=== PATIENT | male | born 1970 | race Caucasian/White ===

== ENCOUNTER 2017-03-01 00:53 | Inpatient (IN) | payer MEDICAID ==
[~2017-03-01] VITALS: Ht 195.6 cm; Wt 148.8 kg
[2017-03-01 00:53] VITALS: BP_SYST 120
[2017-03-01] MEDS ORDERED: MORPHINE 4 MG/ML INJ. SYRINGE IVP ONE (01:15)
[2017-03-01 01:47] LABS: HEMATOCRIT 41.2 % (36-54); HEMOGLOBIN 13.3 g/dL (14.0-18.0); LYMPHOCYTES % (AUTO) 36.7 % (20.5-51.5); MEAN CORPUSCULAR HEMOGLOBIN 28 pg (27-31); MEAN CORPUSCULAR HGB CONC 32 % (32-36); MEAN CORPUSCULAR VOLUME 85 fL (79.0-98.0); NEUTROPHILS % (AUTO) 44.2 % (40.0-70.0); PLATELET COUNT (AUTO) 295 K/uL (130-430); RED BLOOD CELL COUNT(AUTO) 4.82 MIL/uL (4.2-6.2); RED CELL DISTRIBUTION WIDTH 16.8 % (9.0-15.0); WHITE BLOOD COUNT (AUTO) 7.7 K/uL (4.8-10.8)
[2017-03-01 01:48] LABS: BASOPHILS # (AUTO) 0.4 K/uL (0.0-0.2); BASOPHILS % (AUTO) 4.6 % (0.0-2.0); EOSINOPHILS # (AUTO) 0.3 K/uL (0.0-0.4); EOSINOPHILS % (AUTO) 3.8 % (0.0-4.0); LYMPHOCYTES # (AUTO) 2.8 K/uL (1.0-5.5); MONOCYTES # (AUTO) 0.8 K/uL (0.0-1.0); MONOCYTES % (AUTO) 41.7 % (1.7-9.3); NEUTROPHILS # (AUTO) 3.4 K/uL (1.8-7.7)
[2017-03-01 01:51] LABS: CALCIUM 8.8 mg/dL (8.4-11.0); CREATININE 0.99 mg/dL (0.55-1.30); POTASSIUM 3.5 mmol/L (3.5-5.1)
[2017-03-01 01:57] LABS: ALBUMIN 2.9 g/dL (3.4-4.8); TOTAL BILIRUBIN 0.4 mg/dL (0.0-1.0)
[2017-03-01] MEDS ORDERED: RIVA20TA PO (02:27)
[2017-03-01] MEDS ORDERED: TOPXL100 PO (02:27)
[2017-03-01] MEDS ORDERED: ISO10 PO (02:27)
[2017-03-01] MEDS ORDERED: FURO-149 PO (02:27)
[2017-03-01] MEDS ORDERED: HYDR-4037 PO (02:27)
[2017-03-01] MEDS ORDERED: ASPI-1063 PO (02:27)
[2017-03-01] MEDS ORDERED: LISI10TA5 PO (02:27)
[2017-03-01] MEDS ORDERED: MORPHINE 2 MG/ML INJ. SYRINGE IVP PRN (03:00)
[2017-03-01 03:29] VITALS: BP_SYST 107
[2017-03-01] MEDS: NITROGLYCERIN 0.4 MG TAB.SUBL SL PRN ×2 (04:27→04:33)
[2017-03-01] MEDS ORDERED: hydrALAZINE HCL 10 MG TABLET PO SCH (06:00)
[2017-03-01 08:25] VITALS: BP_SYST 137
[2017-03-01] MEDS ORDERED: chlordiazePOXIDE HCL 25 MG CAPSULE PO PRN (08:30)
[2017-03-01] MEDS ORDERED: ISOSORBIDE DINITRATE 10 MG TABLET (ISORDIL) PO SCH (09:00)
[2017-03-01] MEDS ORDERED: LISINOPRIL 10 MG TABLET (PRINIVIL) PO SCH (09:00)
[2017-03-01] MEDS ORDERED: METOPROLOL SUCCINATE 50 MG TAB.SR.24H (TOPROL XL) PO SCH ×2 (09:00)
[2017-03-01] MEDS ORDERED: FOLIC ACID 1 MG TABLET PO SCH (09:00)
[2017-03-01] MEDS ORDERED: ASPIRIN 81 MG TABLET(ECOTRIN) PO SCH (09:00)
[2017-03-01] MEDS ORDERED: THIAMINE HCL 100 MG TABLET PO SCH (09:00)
[2017-03-01] MEDS ORDERED: RIVAROXABAN 10 MG TABLET PO SCH (09:00)
[2017-03-01 10:07] LABS: CHOLESTEROL 104 mg/dL (<200); HDL CHOLESTEROL 34 mg/dL (>45); LDL CHOLESTEROL 75 mg/dL (<100); TRIGLYCERIDES 74 mg/dL (30-150)
== END 2017-03-01 09:50 | disposition left against medical advice (07) | DRG 203 ==
LOC: SED 00:53 → STU 03:16
PROVIDERS: ADMIT Internal Medicine; ATTEND Internal Medicine
DX: R07.89 Other chest pain (principal); I42.0 Dilated cardiomyopathy; I50.9 Heart failure, unspecified; E44.0 Moderate protein-calorie malnutrition; E66.01 Morbid (severe) obesity due to excess calories; F15.10 Other stimulant abuse, uncomplicated; I48.91 Unspecified atrial fibrillation; F10.10 Alcohol abuse, uncomplicated; G47.30 Sleep apnea, unspecified; Z53.21 Procedure and treatment not carried out due to patient leaving prior to being seen by health care provider; J44.9 Chronic obstructive pulmonary disease, unspecified; F19.10 Other psychoactive substance abuse, uncomplicated; F17.210 Nicotine dependence, cigarettes, uncomplicated; Z68.38 Body mass index [BMI] 38.0-38.9, adult; Z79.82 Long term (current) use of aspirin; Z79.899 Other long term (current) drug therapy
CPT/HCPCS: 36415; 71010; 80053; 80061; 83880; 84484; 85025; 87081; 93005; 93306; 96374; 99285; J2270

== ENCOUNTER 2017-03-02 05:10 | Inpatient (IN) | payer MEDICAID ==
[~2017-03-02] VITALS: Ht 190.5 cm; Wt 149.7 kg
[~2017-03-02 05:10] MED LIST: ASPI-1063 PO; FURO-149 PO; HYDR-4037 PO; ISO10 PO; LISI10TA5 PO; RIVA20TA PO; TOPXL100 PO
[2017-03-02 05:13] VITALS: BP_SYST 128
[2017-03-02] MEDS ORDERED: ASPIRIN 325 MG TABLET PO ONE (05:15)
[2017-03-02] MEDS ORDERED: KETOROLAC TROMETHAMINE 60 MG/2 ML VIAL IM ONE (05:15)
[2017-03-02 05:54] LABS: BASOPHILS # (AUTO) 0.1 K/uL (0.0-0.2); EOSINOPHILS # (AUTO) 0.3 K/uL (0.0-0.4); HEMATOCRIT 46.9 % (36-54); LYMPHOCYTES # (AUTO) 2.7 K/uL (1.0-5.5); MEAN CORPUSCULAR HEMOGLOBIN 27 pg (27-31); MEAN CORPUSCULAR HGB CONC 31 % (32-36); MONOCYTES # (AUTO) 0.5 K/uL (0.0-1.0)
[2017-03-02 05:55] LABS: CALCIUM 10.1 mg/dL (8.4-11.0); POTASSIUM 3.5 mmol/L (3.5-5.1)
[2017-03-02 05:58] LABS: EOSINOPHILS % (AUTO) 3.9 % (0.0-4.0); HEMOGLOBIN 14.5 g/dL (14.0-18.0); LYMPHOCYTES % (AUTO) 40.7 % (20.5-51.5); MEAN CORPUSCULAR VOLUME 86 fL (79.0-98.0); MONOCYTES % (AUTO) 7.9 % (1.7-9.3); NEUTROPHILS # (AUTO) 3.1 K/uL (1.8-7.7); NEUTROPHILS % (AUTO) 46.5 % (40.0-70.0); PLATELET COUNT (AUTO) 356 K/uL (130-430); RED BLOOD CELL COUNT(AUTO) 5.48 MIL/uL (4.2-6.2); RED CELL DISTRIBUTION WIDTH 16.6 % (9.0-15.0); WHITE BLOOD COUNT (AUTO) 6.7 K/uL (4.8-10.8)
[2017-03-02 06:00] LABS: ALBUMIN 3.2 g/dL (3.4-4.8); TOTAL BILIRUBIN 0.7 mg/dL (0.0-1.0)
[2017-03-02] MEDS ORDERED: IPRATROPIUM/ALBUTEROL SULFATE 3 ML AMPUL.NEB INH ONE (06:00)
[2017-03-02] MEDS ORDERED: FUROSEMIDE 40 MG/4 ML VIAL IVP ONE (06:00)
[2017-03-02] MEDS ORDERED: ALBUTEROL SULFATE 0.083% 2.5 MG/3 ML VIAL.NEB INH PRN (06:30)
[2017-03-02 07:09] VITALS: BP_SYST 120
[2017-03-02 09:16] LABS: BILIRUBIN,URINE NEGATIVE (NEGATIVE); CLARITY/URINE CLEAR (CLEAR); COLOR,URINE YELLOW (YELLOW); GLUCOSE,URINE NEGATIVE (NEGATIVE); KETONES,URINE NEGATIVE (NEGATIVE); LEUKOCYTE ESTERASE ,URINE NEGATIVE (NEGATIVE); NITRITE, URINE NEGATIVE (NEGATIVE); PH,URINE 5.5 (5.0-8.0); PROTEIN URINE 2+ (NEGATIVE); UROBILINOGEN,URINE 0.2 (0.2-1.0)
[2017-03-02 09:21] LABS: BLOOD, URINE TRACE (NEGATIVE)
[2017-03-02 09:33] LABS: BARBITURATE, URINE NEGATIVE (NEG <=200); BENZODIAZEPINE, URINE NEGATIVE (NEG <=150); CANNABINOID, URINE NEGATIVE (NEG <=50); COCAINE, URINE NEGATIVE (NEG <=150); METHAMPHETAMINES SCREEN,URINE POSITIVE (NEG <=500); OPIATE, URINE POSITIVE (NEG <=100); PHENCYCLIDINE SCREEN,URINE NEGATIVE (NEG <=25); UR TRICYCLIC ANTIDEPRESSANTS NEGATIVE (NEG <=300); URINE AMPHETAMINE POSITIVE (NEG <=500); URINE METHADONE NEGATIVE (NEG <=200); URINE OXYCODONE SCREEN NEGATIVE (NEG <=100); URINE PROPOXYPHENE SCREEN NEGATIVE (NEG <=300)
[2017-03-02] MEDS ORDERED: ISOSORBIDE DINITRATE 10 MG TABLET (ISORDIL) PO ONE (09:45)
[2017-03-02 09:54] LABS: WBC,URINE 0-3 /HPF (0-3)
[2017-03-02 09:55] LABS: BACTERIA,URINE RARE /HPF (None Seen); HYALINE CASTS, URINE 0-10 /LPF (None Seen); MUCUS,URINE 1+ /LPF (None Seen)
[2017-03-02] MEDS ORDERED: LISINOPRIL 10 MG TABLET (PRINIVIL) PO ONE (10:00)
[2017-03-02] MEDS ORDERED: RIVAROXABAN 10 MG TABLET PO ONE (10:00)
[2017-03-02] MEDS ORDERED: METOPROLOL SUCCINATE 50 MG TAB.SR.24H (TOPROL XL) PO ONE (10:00)
[2017-03-02] MEDS ORDERED: ASPIRIN 81 MG TABLET(ECOTRIN) PO ONE (10:00)
[2017-03-02] MEDS ORDERED: FUROSEMIDE 40 MG TABLET PO ONE (10:00)
[2017-03-02] MEDS: MORPHINE 4 MG/ML INJ. SYRINGE IVP PRN ×3 (10:16→21:11)
[2017-03-02] MEDS: hydrALAZINE HCL 10 MG TABLET PO SCH ×2 (10:17→18:08)
[2017-03-02 12:37] VITALS: BP_SYST 106; BP_SYST 131
[2017-03-02 16:29] VITALS: BP_SYST 154
[2017-03-02 17:29] VITALS: BP_SYST 154
[2017-03-02] MEDS: ALBUTEROL SULFATE 0.083% 2.5 MG/3 ML VIAL.NEB INH SCH (20:30)
[2017-03-02] MEDS: ISOSORBIDE DINITRATE 10 MG TABLET (ISORDIL) PO SCH (21:11)
[2017-03-03] MEDS: MORPHINE 4 MG/ML INJ. SYRINGE IVP PRN ×4 (00:47→16:08)
[2017-03-03] MEDS: ALBUTEROL SULFATE 0.083% 2.5 MG/3 ML VIAL.NEB INH SCH ×4 (01:30→19:48)
[2017-03-03 03:09] VITALS: BP_SYST 119
[2017-03-03] MEDS: hydrALAZINE HCL 10 MG TABLET PO SCH ×3 (04:19→18:16)
[2017-03-03 06:02] VITALS: BP_SYST 125
[2017-03-03] MEDS: RIVAROXABAN 10 MG TABLET PO SCH (08:49)
[2017-03-03] MEDS: FUROSEMIDE 40 MG TABLET PO SCH (08:51)
[2017-03-03] MEDS: ASPIRIN 81 MG TABLET(ECOTRIN) PO SCH (08:51)
[2017-03-03] MEDS: METOPROLOL SUCCINATE 50 MG TAB.SR.24H (TOPROL XL) PO SCH (08:51)
[2017-03-03] MEDS: ISOSORBIDE DINITRATE 10 MG TABLET (ISORDIL) PO SCH ×2 (08:52→21:41)
[2017-03-03] MEDS ORDERED: LISINOPRIL 10 MG TABLET (PRINIVIL) PO SCH (09:00)
[2017-03-03 11:34] VITALS: BP_SYST 127
[2017-03-03 16:18] VITALS: BP_SYST 142
[2017-03-03 20:16] VITALS: BP_SYST 135
[2017-03-04] MEDS: MORPHINE 4 MG/ML INJ. SYRINGE IVP PRN ×4 (00:06→13:50)
[2017-03-04 00:14] VITALS: BP_SYST 146
[2017-03-04] MEDS: ALBUTEROL SULFATE 0.083% 2.5 MG/3 ML VIAL.NEB INH SCH ×3 (01:00→14:40)
[2017-03-04] MEDS: hydrALAZINE HCL 10 MG TABLET PO SCH ×2 (03:23→09:35)
[2017-03-04 04:28] VITALS: BP_SYST 128
[2017-03-04 08:17] VITALS: BP_SYST 147
[2017-03-04] MEDS ORDERED: LISINOPRIL 20 MG TABLET PO SCH (09:00)
[2017-03-04] MEDS: ASPIRIN 81 MG TABLET(ECOTRIN) PO SCH (09:27)
[2017-03-04] MEDS: ISOSORBIDE DINITRATE 10 MG TABLET (ISORDIL) PO SCH (09:28)
[2017-03-04] MEDS: FUROSEMIDE 40 MG TABLET PO SCH (09:29)
[2017-03-04] MEDS: METOPROLOL SUCCINATE 50 MG TAB.SR.24H (TOPROL XL) PO SCH (09:30)
[2017-03-04] MEDS: RIVAROXABAN 10 MG TABLET PO SCH (09:31)
[2017-03-04 11:34] VITALS: BP_SYST 131
[2017-03-04 12:43] VITALS: BP_SYST 131
[2017-03-04] MEDS ORDERED: METO200T37 PO (15:42)
[2017-03-04] MEDS ORDERED: LISI-600 PO (15:42)
[2017-03-04] MEDS ORDERED: HYDR-4037 PO (15:44)
[2017-03-04] MEDS ORDERED: IBUP-1480 PO (15:45)
[2017-03-04] MEDS ORDERED: ALBMDI INH (15:47)
[2017-03-04 16:49] VITALS: BP_SYST 135
[2017-03-05] MEDS ORDERED: METOPROLOL SUCCINATE 50 MG TAB.SR.24H (TOPROL XL) PO SCH (09:00)
== END 2017-03-04 16:30 | disposition home or self-care (01) | DRG 194 ==
LOC: SED 05:10 → STU 06:23
PROVIDERS: ADMIT Family Medicine; ATTEND Family Medicine
DX: I11.0 Hypertensive heart disease with heart failure (principal); I42.0 Dilated cardiomyopathy; Z68.41 Body mass index [BMI] 40.0-44.9, adult; I48.0 Paroxysmal atrial fibrillation; I50.23 Acute on chronic systolic (congestive) heart failure; E66.01 Morbid (severe) obesity due to excess calories; Z91.19 Patient's noncompliance with other medical treatment and regimen; F15.10 Other stimulant abuse, uncomplicated; Z79.82 Long term (current) use of aspirin; Z79.899 Other long term (current) drug therapy
CPT/HCPCS: 36415; 36600; 71010; 80053; 80307; 81000-TC; 82803-TC; 83880; 84484; 85025; 87081; 93005; 94640; 94760; 96372; 96374; 99285; J1885; J1940; J2270

== ENCOUNTER 2018-12-07 04:58 | Emergency (ER) | payer MEDICAID ==
[~2018-12-07] VITALS: Ht 182.9 cm; Wt 99.8 kg
[~2018-12-07 04:58] MED LIST changes: +ALBMDI INH; -ASPI-1063 PO; +ASPI-1155 PO; -HYDR-4037 PO; +HYDR-4039 PO; +LISI-600 PO; -LISI10TA5 PO; +METO5TAB8 PO; +POTA20TA83 PO; +SPIR50TA PO
[2018-12-07 05:00] VITALS: BP_SYST 130
[2018-12-07] MEDS ORDERED: NITROGLYCERIN 0.4 MG TAB.SUBL SL ONE (05:15)
[2018-12-07] MEDS ORDERED: ASPIRIN 81 MG TAB.CHEW PO ONE (05:15)
[2018-12-07] MEDS ORDERED: MORPHINE 4 MG/ML INJ. SYRINGE IVP ONE (05:15)
[2018-12-07] MEDS ORDERED: LevALBUTEROL HCL 1.25 MG/0.5 ML *CONC.* VIAL.NEB (XOPENEX CONC.) INH ONE ×2 (05:15→06:00)
[2018-12-07] MEDS ORDERED: LORazepam 1 MG TABLET PO ONE (05:15)
[2018-12-07] MEDS ORDERED: IPRATROPIUM BROM 0.5 MG/2.5 ML VIAL.NEB (ATROVENT) IH ONE (05:15)
[2018-12-07 05:35] LABS: BASOPHILS # (AUTO) 0.1 K/uL (0.0-0.2); EOSINOPHILS # (AUTO) 0.1 K/uL (0.0-0.4); EOSINOPHILS % (AUTO) 1.9 % (0.0-4.0); HEMATOCRIT 39.3 % (36-54); HEMOGLOBIN 12.6 g/dL (14.0-18.0); LYMPHOCYTES # (AUTO) 1.5 K/uL (1.0-5.5); LYMPHOCYTES % (AUTO) 27.2 % (20.5-51.5); MEAN CORPUSCULAR HEMOGLOBIN 26 pg (27-31); MEAN CORPUSCULAR HGB CONC 32 % (32-36); MEAN CORPUSCULAR VOLUME 82 fL (79.0-98.0); MONOCYTES # (AUTO) 0.7 K/uL (0.0-1.0); MONOCYTES % (AUTO) 13.8 % (1.7-9.3); NEUTROPHILS % (AUTO) 55.1 % (40.0-70.0); PLATELET COUNT (AUTO) 230 K/uL (130-430); RED BLOOD CELL COUNT(AUTO) 4.83 MIL/uL (4.2-6.2); RED CELL DISTRIBUTION WIDTH 23.8 % (9.0-15.0); WHITE BLOOD COUNT (AUTO) 5.4 K/uL (4.8-10.8)
[2018-12-07 05:43] LABS: CALCIUM 8.6 mg/dL (8.4-11.0); CREATININE 1.1 mg/dL (0.55-1.30); POTASSIUM 3.4 mmol/L (3.5-5.1)
[2018-12-07 05:47] LABS: ALBUMIN 2.9 g/dL (3.4-4.8); INR 1.8 (0.80-1.20); PROTHROMBIN TIME 18.1 SECS (9.5-12.5); TOTAL BILIRUBIN 2.8 mg/dL (0.0-1.0)
[2018-12-07] MEDS ORDERED: FUROSEMIDE 40 MG/4 ML VIAL IVP ONE (07:00)
[2018-12-07] MEDS ORDERED: PHENYLEPHRINE HCL 1% NASAL 15 ML NASPR NS ONE (11:15)
[2018-12-07 11:58] VITALS: BP_SYST 124
== END 2018-12-07 11:58 | disposition home or self-care (01) ==
LOC: SED 04:58
DX: I50.9 Heart failure, unspecified (principal); R07.89 Other chest pain; R06.02 Shortness of breath; I25.10 Atherosclerotic heart disease of native coronary artery without angina pectoris; J44.9 Chronic obstructive pulmonary disease, unspecified; Z79.82 Long term (current) use of aspirin; Z79.899 Other long term (current) drug therapy
CPT/HCPCS: 36415; 71045; 80053; 83880; 84484; 85025; 85379; 85610; 85730; 93005; 94640; 96374; 96375; 99284; J1940; J2270

== ENCOUNTER 2018-12-13 20:17 | Inpatient (IN) | payer MEDICAID ==
[~2018-12-13] VITALS: Ht 190.5 cm; Wt 111.6 kg
[2018-12-13 20:20] VITALS: BP_SYST 126
--- NOTE | 2018-12-13 20:50 | NUR ---
Placed in room 6 . Placed on hospital monitor, blood pressure machine and pulse oximeter. To gown for exam. Side rails up.
--- NOTE | 2018-12-13 20:51 | NUR ---
ER Dr. Amin at bedside examining patient.
--- NOTE | 2018-12-13 20:52 | NUR ---
Medication was given, pt tolerated well. No adverse reaction, will continue to monitor.
--- NOTE | 2018-12-13 20:53 | NUR ---
Xray at bedside, pt tolerated well
[2018-12-13] MEDS ORDERED: ASPIRIN 81 MG TAB.CHEW PO ONE (21:00)
[2018-12-13 21:17] LABS: BASOPHILS % (AUTO) 0.2 % (0.0-2.0); EOSINOPHILS # (AUTO) 0.3 K/uL (0.0-0.4); EOSINOPHILS % (AUTO) 5.7 % (0.0-4.0); HEMATOCRIT 40.5 % (36-54); HEMOGLOBIN 12.6 g/dL (14.0-18.0); LYMPHOCYTES # (AUTO) 1.7 K/uL (1.0-5.5); LYMPHOCYTES % (AUTO) 32.8 % (20.5-51.5); MEAN CORPUSCULAR HEMOGLOBIN 26 pg (27-31); MEAN CORPUSCULAR HGB CONC 31 % (32-36); MEAN CORPUSCULAR VOLUME 82 fL (79.0-98.0); MONOCYTES # (AUTO) 0.5 K/uL (0.0-1.0); MONOCYTES % (AUTO) 10.7 % (1.7-9.3); NEUTROPHILS # (AUTO) 2.6 K/uL (1.8-7.7); NEUTROPHILS % (AUTO) 50.6 % (40.0-70.0); PLATELET COUNT (AUTO) 333 K/uL (130-430); RED BLOOD CELL COUNT(AUTO) 4.95 MIL/uL (4.2-6.2); RED CELL DISTRIBUTION WIDTH 24.2 % (9.0-15.0); WHITE BLOOD COUNT (AUTO) 5.1 K/uL (4.8-10.8)
--- NOTE | 2018-12-13 21:18 | NUR ---
Offered supplemental O2 via nasal cannula d/t oxygen saturation at 85% room air. Patient refuses.
[2018-12-13 21:33] LABS: CALCIUM 8.9 mg/dL (8.4-11.0); CREATININE 1.69 mg/dL (0.55-1.30)
[2018-12-13 21:39] LABS: ALBUMIN 2.7 g/dL (3.4-4.8); TOTAL BILIRUBIN 2.7 mg/dL (0.0-1.0)
[2018-12-13] MEDS ORDERED: KETOROLAC TROMETHAMINE 30 MG VIAL IVP ONE (21:45)
[2018-12-13] MEDS ORDERED: METOCLOPRAMIDE HCL 10 MG/2 ML VIAL IVP ONE (21:45)
[2018-12-13 21:51] LABS: POTASSIUM 2.8 mmol/L (3.5-5.1)
--- NOTE | 2018-12-13 22:02 | NUR ---
Patient refused medications. Dr. Amin was made aware.
[2018-12-13] MEDS ORDERED: POTASSIUM CHLORIDE 20 MEQ TAB.PRT.SR PO ONE (22:45)
[2018-12-13] MEDS ORDERED: ALBUTEROL SULFATE 0.083% 2.5 MG/3 ML VIAL.NEB INH ONE (23:00)
[2018-12-13] MEDS ORDERED: IPRATROPIUM BROM 0.5 MG/2.5 ML VIAL.NEB (ATROVENT) INH ONE (23:00)
[2018-12-13] MEDS ORDERED: PREDNISONE 20 MG TABLET PO ONE (23:00)
--- NOTE | 2018-12-13 23:18 | NUR ---
Pt resting comfortably in bed. No acute distress, will continue to monitor.
[2018-12-13] MEDS ORDERED: MORPHINE 4 MG/ML INJ. SYRINGE IVP ONE (23:30)
--- NOTE | 2018-12-14 01:32 | NUR ---
patient sleeping comfortably in bed. No acute distress, will continue to monitor.
--- NOTE | 2018-12-14 02:35 | NUR ---
Pt resting comfortably in bed. No acute distress, will continue to monitor.
[2018-12-14] MEDS ORDERED: ACETAMINOPHEN 325 MG TABLET PO PRN (04:15)
[2018-12-14] MEDS ORDERED: MORPHINE 2 MG/ML INJ. SYRINGE IVP PRN (04:15)
--- NOTE | 2018-12-14 04:28 | NUR ---
Patient will be admitted to care of Dr. Pelaez. Admitted to Telemetry unit. Belongings list completed. Summary report printed. Report will be given at bedside. Awaiting bed assignment.
--- NOTE | 2018-12-14 05:21 | NUR ---
Patient will be admitted to care of Dr. Pelaez. Admitted to Telemetry unit. Will go to room 120 A. Belongings list completed. Summary report printed. Report will be given at bedside.
--- NOTE | 2018-12-14 05:22 | NUR ---
Transfer to Telemetry via ACLS protocol. Licensed nurse present. IV present no signs or symptoms of infiltration.
--- NOTE | 2018-12-14 05:32 | NUR ---
ADMISSION: The patient, PATRICE YOUNG, 48 y/o, M admitted by MADDI KEARNS MD,with the diagnosis of Chest Pain , to room 120 A
[2018-12-14 05:48] VITALS: BP_SYST 97
--- NOTE | 2018-12-14 06:00 | NUR ---
Patient refused wound documentation pictures. Will endorse to day shift nurse to attempt again.
--- NOTE | 2018-12-14 06:34 | NUR ---
Patient resting in bed with eyes closed. Breathing unlabored and even on 2L oxygen via NC. No signs of distress, no needs at this time. Fall and safety precautions in place. Bed in lowest position, brake on, alarm on, call light within reach. Will continue to monitor.
--- NOTE | 2018-12-14 06:47 | NUR ---
DAILY WEIGHT FOR CHF: [phone] #
--- NOTE | 2018-12-14 06:51 | NUR ---
CLOSING NOTE Patient resting in bed with eyes closed. Breathing unlabored and even on 2L oxygen via NC. No signs of distress, no needs at this time. Fall and safety precautions in place. Bed in lowest position, brake on, alarm on, call light within reach. Will endorse to day shift nurse.
--- NOTE | 2018-12-14 08:00 | NUR ---
pt in appears to be sleep awaken with verbal arousal pt denies pain at this time aox3 on room air vss. will continue to monitor.
[2018-12-14] MEDS ORDERED: POTASSIUM CHLORIDE 20 MEQ/PKT PACKET PO SCH (09:00)
[2018-12-14] MEDS ORDERED: ASPIRIN 81 MG TABLET(ECOTRIN) PO SCH (09:00)
[2018-12-14] MEDS ORDERED: METOLAZONE 5 MG TABLET PO SCH (09:45)
[2018-12-14 09:55] VITALS: BP_SYST 128
--- NOTE | 2018-12-14 10:00 | NUR ---
pt in bed sleep awakes with arousal no changes from previous assessment
[2018-12-14] MEDS ORDERED: ISOSORBIDE DINITRATE 10 MG TABLET (ISORDIL) PO ONE (10:30)
[2018-12-14] MEDS ORDERED: METOPROLOL SUCCINATE 50 MG TAB.SR.24H (TOPROL XL) PO ONE (10:30)
[2018-12-14] MEDS ORDERED: hydrALAZINE HCL 25 MG TABLET PO ONE (10:30)
[2018-12-14] MEDS ORDERED: LISINOPRIL 20 MG TABLET PO ONE (10:30)
[2018-12-14] MEDS ORDERED: FUROSEMIDE 40 MG TABLET PO ONE (10:30)
[2018-12-14] MEDS ORDERED: POTASSIUM CHLORIDE 20 MEQ TAB.PRT.SR PO ONE (11:00)
--- NOTE | 2018-12-14 12:00 | NUR ---
no changes from previous shift
[2018-12-14 12:45] VITALS: BP_SYST 114
--- NOTE | 2018-12-14 13:35 | NUR ---
informed of critical lab. dr lofton stated he will be in to assess pt
[2018-12-14] MEDS: IPRATROPIUM/ALBUTEROL SULFATE 3 ML AMPUL.NEB (DUONEB) INH SCH ×2 (13:37→20:12)
--- NOTE | 2018-12-14 13:48 | NUR ---
Pediatric Immunologist: PHARMACY SPECIALIST met with pt. bedside. Pt. was sleeping. He tried to awaken when PHARMACY SPECIALIST said hello. Pt. mumbled something and went back to sleep. PHARMACY SPECIALIST went back one hour later. Pt. was still sleeping. PHARMACY SPECIALIST will try to meet with him before 5pm today.
[2018-12-14] MEDS ORDERED: ENOXAPARIN SODIUM 100 MG/ML SYRINGE SUBCUT ONE (14:15)
[2018-12-14] MEDS ORDERED: ASPIRIN 81 MG TABLET(ECOTRIN) PO ONE (14:30)
[2018-12-14] MEDS ORDERED: ASPIRIN 81 MG TAB.CHEW ONE (14:54)
[2018-12-14] MEDS ORDERED: ASPIRIN 81 MG TABLET(ECOTRIN) ONE (14:55)
[2018-12-14 16:55] VITALS: BP_SYST 121
[2018-12-14] MEDS ORDERED: RIVAROXABAN 10 MG TABLET PO SCH (18:00)
--- NOTE | 2018-12-14 18:08 | NUR ---
CONSULTATION PAGED/CALLED Reason for Consultation: Elevated troponin Person Who was Notified: CHIP Consulting Physician: DR. WALLACE Women'S Studies Professor Specialty: DESKIDDING MACHINE OPERATOR Ordering Physician: URMILA
--- NOTE | 2018-12-14 18:19 | NUR ---
pt shows no s/s of acute distress monitoriung iongoing./
[2018-12-14 18:21] LABS: BILIRUBIN,URINE 1+ (NEGATIVE); BLOOD, URINE NEGATIVE (NEGATIVE); CLARITY/URINE CLEAR (CLEAR); COLOR,URINE AMBER (YELLOW); GLUCOSE,URINE NEGATIVE (NEGATIVE); KETONES,URINE NEGATIVE (NEGATIVE); LEUKOCYTE ESTERASE ,URINE NEGATIVE (NEGATIVE); NITRITE, URINE NEGATIVE (NEGATIVE); PROTEIN URINE 1+ (NEGATIVE)
[2018-12-14 18:37] LABS: UROBILINOGEN,URINE >=8 (0.2-1.0)
[2018-12-14 18:40] LABS: BACTERIA,URINE FEW /HPF (None Seen); RBC,URINE NONE SEEN /HPF (0-3); WBC,URINE 0-3 /HPF (0-3)
[2018-12-14 18:41] LABS: MUCUS,URINE None Seen /LPF (None Seen)
[2018-12-14 18:44] LABS: BARBITURATE, URINE NEGATIVE (NEG <=200); BENZODIAZEPINE, URINE POSITIVE (NEG <=150); CANNABINOID, URINE NEGATIVE (NEG <=50); COCAINE, URINE NEGATIVE (NEG <=150); METHAMPHETAMINES SCREEN,URINE POSITIVE (NEG <=500); URINE AMPHETAMINE POSITIVE (NEG <=500); URINE METHADONE NEGATIVE (NEG <=200)
[2018-12-14 18:45] LABS: OPIATE, URINE POSITIVE (NEG <=100); PHENCYCLIDINE SCREEN,URINE NEGATIVE (NEG <=25); UR TRICYCLIC ANTIDEPRESSANTS NEGATIVE (NEG <=300); URINE OXYCODONE SCREEN NEGATIVE (NEG <=100); URINE PROPOXYPHENE SCREEN NEGATIVE (NEG <=300)
--- NOTE | 2018-12-14 19:10 | NUR ---
OPENING NOTE Bedside report received from day shift nurse. Patient received sitting up in bed, watching TV, patient is complaining of 10/10 chest pain, PRN medication to be administered. Breathing even and unlabored. IV site patent, no signs of infiltration or infection noted. Call light with patient. Patient able to demonstrate proper use of call light. Bed alarm off per patient's refusal. Bed is locked and at lowest position. Will continue to monitor.
[2018-12-14] MEDS: MORPHINE 4 MG/ML INJ. SYRINGE IVP PRN ×2 (19:43→23:50)
[2018-12-14 20:00] VITALS: BP_SYST 101
[2018-12-14] MEDS ORDERED: ENOXAPARIN SODIUM 100 MG/ML SYRINGE SUBCUT SCH (21:00)
--- NOTE | 2018-12-14 21:00 | NUR ---
ROUNDS/TOILET/REMOVED TELE MONITOR Patient on the toilet, having BM. Patient removed his gown and tele box. Patient is completely naked and refuses to have tele box attached or wear a gown at this time. Patient instructed to pull cord for emergency, patient verbalized understanding. Will continue to monitor.
[2018-12-14] MEDS: FUROSEMIDE 40 MG TABLET PO SCH (21:21)
[2018-12-14] MEDS: hydrALAZINE HCL 25 MG TABLET PO SCH (21:22)
[2018-12-14] MEDS: METOPROLOL SUCCINATE 50 MG TAB.SR.24H (TOPROL XL) PO SCH (21:22)
[2018-12-14] MEDS: POTASSIUM CHLORIDE 20 MEQ TAB.PRT.SR PO SCH (21:22)
--- NOTE | 2018-12-14 21:37 | NUR ---
PAGING DR. MEDINA FOR CRITICAL TROPONIN Paging Dr. Medina per primary nurse, MIRIAM Whittington, request to report critical troponin results and orders. Spoke with Petey from exchange. Will wait for MD to call back.
[2018-12-14] MEDS ORDERED: APIXABAN 2.5 MG TABLET PO SCH (22:00)
--- NOTE | 2018-12-14 23:00 | NUR ---
ROUNDS Patient in bed sleeping at this time. BIPAP machine attached and operating. No signs of discomfort noted. Chest rise and fall even bilaterally. Call light with patient. Will continue to monitor.
[2018-12-15] VITALS (8 sets, daily range): BP systolic 55–119
--- NOTE | 2018-12-15 01:00 | NUR ---
ROUNDS Patient in bed sleeping. No signs of discomfort noted. Chest rise and fall even bilaterally, CPAP mask attached, operating. HOB raised. Call light with patient. Will continue to monitor.
[2018-12-15] MEDS: IPRATROPIUM/ALBUTEROL SULFATE 3 ML AMPUL.NEB (DUONEB) INH SCH ×4 (01:57→20:18)
--- NOTE | 2018-12-15 03:00 | NUR ---
ROUNDS Patient in bed sleeping comfortably. No s/s of acute distress noted. Breathing even and unlabored. CPAP attached and operating. Call light with patient. Will continue to monitor.
[2018-12-15] MEDS: MORPHINE 4 MG/ML INJ. SYRINGE IVP PRN (04:01)
--- NOTE | 2018-12-15 05:00 | NUR ---
ROUNDS/REMOVED MASK Patient in bed sleeping, BIPAP mask removed. Patient asked if he still wants to use it, he stated you can turn it off. RT informed. Call light with patient. Will continue to monitor.
--- NOTE | 2018-12-15 06:41 | NUR ---
CLOSING NOTES Patient in bed sleeping. No s/s of acute distress noted. Breathing even and unlabored. IV site patent, no signs of infiltration or infection noted. HOB raised. All needs met throughout shift. Fall and safety precautions maintained throughout shift. Will continue to monitor until patient care is endorsed to oncoming dayshift nurse.
[2018-12-15 07:09] LABS: BASOPHILS % (AUTO) 0.3 % (0.0-2.0); HEMATOCRIT 33.1 % (36-54); HEMOGLOBIN 10.7 g/dL (14.0-18.0); LYMPHOCYTES # (AUTO) 1.9 K/uL (1.0-5.5); LYMPHOCYTES % (AUTO) 14.9 % (20.5-51.5); MEAN CORPUSCULAR HEMOGLOBIN 30 pg (27-31); MEAN CORPUSCULAR HGB CONC 32 % (32-36); MEAN CORPUSCULAR VOLUME 94 fL (79.0-98.0); MONOCYTES # (AUTO) 0.4 K/uL (0.0-1.0); MONOCYTES % (AUTO) 3.4 % (1.7-9.3); NEUTROPHILS # (AUTO) 10.2 K/uL (1.8-7.7); NEUTROPHILS % (AUTO) 81.4 % (40.0-70.0); PLATELET COUNT (AUTO) 462 K/uL (130-430); RED BLOOD CELL COUNT(AUTO) 3.53 MIL/uL (4.2-6.2); RED CELL DISTRIBUTION WIDTH 14.6 % (9.0-15.0)
[2018-12-15 07:14] LABS: WHITE BLOOD COUNT (AUTO) 12.6 K/uL (4.8-10.8)
[2018-12-15 07:15] LABS: CALCIUM 9.5 mg/dL (8.4-11.0); POTASSIUM 4.8 mmol/L (3.5-5.1)
[2018-12-15 07:16] LABS: FREE T4 (FREE THYROXINE) 1.2 ng/dl (0.8-1.5)
[2018-12-15 07:37] LABS: THYROID STIMULATING HORMONE 0.36 uIu/mL (0.36-3.74)
--- NOTE | 2018-12-15 08:00 | NUR ---
OPENING NOTE: PATIENT LAYING IN BED. PATIENT AROUSABLE TO LIGHT STIMULI AND VERBAL RESPONSIVE. PATIENT ABLE TO OPEN EYES SPONTANEOUSLY. VERBALLY RESPONSIVE. PATIENT IS ON ROOM AIR AND SATURATING AT 97% O2. SKIN COLOR NORMAL TO PATIENT'S ETHNICITY. IV INTACT, NO REDNESS/SWELLING TO SITE. BED AT LOWEST POSITION, CALL LIGHT IN REACH. WILL CONTINUE TO MONITOR.
[2018-12-15] MEDS: ONDANSETRON HCL 4 MG/2 ML VIAL IVP PRN (08:40)
[2018-12-15] MEDS: ISOSORBIDE DINITRATE 10 MG TABLET (ISORDIL) PO SCH ×2 (09:00→09:34)
[2018-12-15] MEDS: APIXABAN 2.5 MG TABLET PO SCH ×3 (09:00→21:00)
[2018-12-15] MEDS: METOPROLOL SUCCINATE 50 MG TAB.SR.24H (TOPROL XL) PO SCH ×2 (09:00→21:00)
[2018-12-15] MEDS: FUROSEMIDE 40 MG TABLET PO SCH ×3 (09:00→21:00)
[2018-12-15] MEDS: POTASSIUM CHLORIDE 20 MEQ TAB.PRT.SR PO SCH ×3 (09:00→21:00)
[2018-12-15] MEDS: LISINOPRIL 20 MG TABLET PO SCH (09:00)
[2018-12-15] MEDS: hydrALAZINE HCL 25 MG TABLET PO SCH ×2 (09:00→21:00)
[2018-12-15] MEDS: SPIRONOLACTONE 50 MG TABLET (ALDACTONE) PO SCH (09:00)
[2018-12-15] MEDS: ASPIRIN 81 MG TAB.CHEW PO SCH ×2 (09:00→09:30)
--- NOTE | 2018-12-15 09:42 | NUR ---
PATIENT VOMITED MORNING MEDS: PATIENT VOMITED MORNING MEDS. UNABLE TO KEEP MEDICATIONS DOWN. PATIENT REFUSED ALL MEDICATIONS. WILL CONTINUE TO MONITOR. DR. WALLACE AT BEDSIDE. DR. WALLACE AWARE THAT PATIENT REFUSED HIS MORNING MEDICATIONS.
--- NOTE | 2018-12-15 12:00 | NUR ---
PATIENT'S FAMILY AT BEDSIDE: PATIENT'S FAMILY AT BEDSIDE, HIS EX , COUSIN AND TWO FAMILY MEMBERS. PATIENT'S FAMILY WAS ASKING ABOUT DISCHARGE PLANNING. CALLED CASE MANAGEMENT AND CLAYTON CAME AND SPOKE TO FAMILY AT BEDSIDE. ALSO DR. KEARNS IN UNIT. PATIENT'S FAMILY WAS MADE AWARE OF PLAN OF CARE/DISCHARGE.E EXPLAINED THAT PSYCH CONSULT WAS CALLED AND PSYCH MD WILL EVALUATE PATIENT. ALSO CLAYTON SPOKE TO FAMILY IN REGARDS TO DISCHARGE OPTIONS FOR PATIENT.
--- NOTE | 2018-12-15 12:06 | NUR ---
CONSULTATION PAGED/CALLED Reason for Consultation: DEPRESSION Person Who was Notified: DOMONIQUE Consulting Physician: DR. LANGSTON/DR. TOTH CREATIVE LEAD Restoration Ecologist Specialty: PSYCHIATRIST Ordering Physician: DR. KEARNS
--- NOTE | 2018-12-15 13:00 | NUR ---
RT NOTES FAMILY REQUESTED TO PUT PT ON BIPAP AT THIS TIME. RN RESSIE AWARE.
[2018-12-15] MEDS ORDERED: NACL 0.9% 1,000 ML IV ONE (16:15)
--- NOTE | 2018-12-15 16:35 | NUR ---
CALLED PATIENT'S FATHER AND UPDATED ON PATIENTS CURRENT STATUS. PATIENTS FATHER (LISTED NEXT OF KIN) IS AWARE THAT PATIENTS BLOOD PRESSURE HAS DECREASED AND PATIENT IS REFUSING TO BE TRANSFERRED TO ICU. PER PATIENT'S FATHER "WE DONT REALLY GET ALONG, I HAVENT TALKED OR SEEN HIM FOR MONTHS. CAN YOU CALL HIS AND SHE CAN MAKE DISCUSSIONS. THEYRE STILL ".
--- NOTE | 2018-12-15 18:32 | NUR ---
CLOSING NOTE: PATIENT RESTING IN BED. VISITORS AT BEDSIDE. PATIENT IS AWAKE AND ALERT, VERBALLY RESPONSIVE. PATIENT WAS RAISING HIS VOICE AT FAMILY MEMBER. PATIENT IS ON ROOM AIR AND SATURATING WITHIN NORMAL LIMITS. NO ACUTE SIGNS OF RESP DISTRESS, NO SOB. BREATHING EVEN AND UNLABORED. IV INTACT, NO REDNESS/SWELLING TO SITE. BED AT LOWEST POSITION, CALL LIGHT IN REACH, SIDE RAILX2, PATIENT CLOSE TO NURSING STATION. WILL ENDORSE PLAN OF CARE TO NOC RN.
--- NOTE | 2018-12-15 20:00 | NUR ---
FALL RISK , PATIENT SITS UP IN BED AT TIMES UNSTEADY WEAK NESS UNABLE TO AMBULATE , PROCEDURES EXPLAINED REFUSING CARE .
[2018-12-15] MEDS: MUPIROCIN 2% TOPICAL OINTMENT 22 GM TP SCH (21:00)
--- NOTE | 2018-12-15 22:38 | NUR ---
PLEASE HAVE DR IVIS MURPHY CALL FOR UPDATE [phone] , MICHAEL .
--- NOTE | 2018-12-15 22:55 | NUR ---
PATIENT REFUSE ELIQUIS 5 MG PO
--- NOTE | 2018-12-15 22:56 | NUR ---
PATIENT REFUSE K dur 40 MEQ PO
--- NOTE | 2018-12-15 22:59 | NUR ---
DR URMILA MURPHY HERE ON THE UNIT AND AWARE OF PATIENT REFUSING VITAL SIGNS & BEDSIDE CARE .
--- NOTE | 2018-12-16 00:36 | NUR ---
HOURLY ROUNDING PATIENT REFUSING TO KEEP GOWN , & SHEET PROCEDURES EXPLAINED FREQUENT MONITOR FALL MEASURES NOTED .
[2018-12-16] MEDS: IPRATROPIUM/ALBUTEROL SULFATE 3 ML AMPUL.NEB (DUONEB) INH SCH ×4 (01:00→19:00)
--- NOTE | 2018-12-16 03:26 | NUR ---
PATIENT IN REST ROOM REFUSING TO COME OUT , NAME CALLING YELLING OUT REFUSING CARE .
--- NOTE | 2018-12-16 03:27 | NUR ---
REFUSING TO COME OUT OF REST ROOM SAYS HE,S GOING TO STAY IN REST ROOM FOR ONE HOUR .
[2018-12-16] MEDS: ONDANSETRON HCL 4 MG/2 ML VIAL IVP PRN (03:49)
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
--- NOTE | 2018-12-16 03:54 | NUR ---
ZOFRAN 4 MG IVP GIVEN FOR NAUSEA .
[2018-12-16 06:09] LABS: CALCIUM 9.2 mg/dL (8.4-11.0); CREATININE 3.16 mg/dL (0.55-1.30)
[2018-12-16 06:23] LABS: POTASSIUM 6.6 mmol/L (3.5-5.1)
--- NOTE | 2018-12-16 06:30 | NUR ---
PHONED PAGED DR URMILA MURPHY , K 6.6
--- NOTE | 2018-12-16 07:10 | NUR ---
NEW ORDERS DR URMILA MURPHY D/T HYPERKALEMIA 6.6
[2018-12-16 07:11] LABS: BASOPHILS % (AUTO) 0.4 % (0.0-2.0); EOSINOPHILS # (AUTO) 0.1 K/uL (0.0-0.4); EOSINOPHILS % (AUTO) 1.5 % (0.0-4.0); HEMATOCRIT 43.1 % (36-54); HEMOGLOBIN 13.8 g/dL (14.0-18.0); LYMPHOCYTES # (AUTO) 1.5 K/uL (1.0-5.5); LYMPHOCYTES % (AUTO) 15.6 % (20.5-51.5); MEAN CORPUSCULAR HEMOGLOBIN 27 pg (27-31); MEAN CORPUSCULAR HGB CONC 32 % (32-36); MONOCYTES # (AUTO) 0.8 K/uL (0.0-1.0); MONOCYTES % (AUTO) 8.8 % (1.7-9.3); NEUTROPHILS # (AUTO) 7.1 K/uL (1.8-7.7); NEUTROPHILS % (AUTO) 73.7 % (40.0-70.0); PLATELET COUNT (AUTO) 429 K/uL (130-430); RED BLOOD CELL COUNT(AUTO) 5.12 MIL/uL (4.2-6.2); RED CELL DISTRIBUTION WIDTH 24.3 % (9.0-15.0); WHITE BLOOD COUNT (AUTO) 9.6 K/uL (4.8-10.8)
[2018-12-16] MEDS ORDERED: SODIUM POLYSTYRENE SULFONATE 15 GM/60 ML UDBTL PO ONE (07:15)
[2018-12-16 07:21] LABS: MEAN CORPUSCULAR VOLUME 84 fL (79.0-98.0)
--- NOTE | 2018-12-16 07:30 | NUR ---
Am rounds: Received patient asleep. On room air. No signs of respiratory distress noted.
[2018-12-16 08:35] VITALS: BP_SYST 97
--- NOTE | 2018-12-16 08:43 | NUR ---
Rounds: Patient agreed vital signs to be taken. But went back to sleep right away when told that am meds will be given.
[2018-12-16] MEDS: ASPIRIN 81 MG TAB.CHEW PO SCH (08:53)
[2018-12-16] MEDS: APIXABAN 2.5 MG TABLET PO SCH ×2 (08:53→20:55)
[2018-12-16] MEDS: ISOSORBIDE DINITRATE 10 MG TABLET (ISORDIL) PO SCH (09:00)
[2018-12-16] MEDS: LISINOPRIL 20 MG TABLET PO SCH (09:00)
[2018-12-16] MEDS: FUROSEMIDE 40 MG TABLET PO SCH ×2 (09:00→20:56)
[2018-12-16] MEDS: MUPIROCIN 2% TOPICAL OINTMENT 22 GM TP SCH ×2 (09:00→20:57)
[2018-12-16] MEDS: METOPROLOL SUCCINATE 50 MG TAB.SR.24H (TOPROL XL) PO SCH ×2 (09:00→20:56)
[2018-12-16] MEDS: SPIRONOLACTONE 50 MG TABLET (ALDACTONE) PO SCH (09:00)
[2018-12-16] MEDS: hydrALAZINE HCL 25 MG TABLET PO SCH ×2 (09:00→20:57)
--- NOTE | 2018-12-16 10:30 | NUR ---
IV out: Found IV out. Refused re insertion.
--- NOTE | 2018-12-16 12:30 | NUR ---
Bactroban: Was not available this am. Patient refused the medication now.
[2018-12-16 12:47] VITALS: BP_SYST 90
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
[2018-12-16 16:49] VITALS: BP_SYST 91
[2018-12-16] MEDS: NACL 0.9% 1,000 ML IV SCH (17:38)
--- NOTE | 2018-12-16 17:41 | NUR ---
CONSULT NEPHROLOGY BRADLEY CALHOUN [phone] S/W DEZ EXCHANGE
--- NOTE | 2018-12-16 17:53 | NUR ---
IV FLUIDS/ IV START: Started gauge 20 angiocath on the right AC, secured with tegaderm and Kerlix . Normal saline 100 cc/hr. Started patient on telemetry, patient is still confused, hard to understand when he talks. 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
--- NOTE | 2018-12-16 17:58 | NUR ---
Psyche consult: Seen by Dr. Ray (psyche). Per MD patient has stated to him that he feels suicidal but no intention of hurting himself and MD said patient does not need sitter at this point.
[2018-12-16 18:34] LABS: CREATININE 3.06 mg/dL (0.55-1.30); POTASSIUM 4.9 mmol/L (3.5-5.1)
--- NOTE | 2018-12-16 19:05 | NUR ---
OPENING NOTES Bedside report received from dayshift nurse. Patient received lying in bed, sleeping, no s/s of acute distress noted. Breathing even and unlabored. IV site not patent, new iv site to be inserted, resource nurse made aware, Willie Stewart RN. Call light with patient. Bed is locked and at lowest position. Will continue to monitor.
--- NOTE | 2018-12-16 19:45 | NUR ---
NEW IV SITE Admit nurse, Willie Mary, started new IV at right AC. IVF infusing well. Call light with patient. Will continue to monitor.
[2018-12-16] MEDS: QUEtiapine FUMARATE 25 MG TABLET PO SCH (20:55)
--- NOTE | 2018-12-16 21:00 | NUR ---
ROUNDS Patient in bed sleeping at this time. No signs of discomfort noted. Chest rise and fall even bilaterally. IVF infusing well. Call light with patient. Will continue to monitor.
[2018-12-16 21:27] VITALS: BP_SYST 116
--- NOTE | 2018-12-16 23:00 | NUR ---
LEADS OFF/REFUSING/AGITATED RN made aware that leads are off. Patient was woken up, patient is agitated, swinging his arms and refuses to have leads put back on. Will attempt again in a later time. Charge nurse made aware.
--- NOTE | 2018-12-17 | NUR ---
REFUSED VITALS RN made aware by MEDIA MANAGER that patient refused to have his vitals take at midnight.
--- NOTE | 2018-12-17 00:45 | NUR ---
DR. PITTS AT BEDSIDE Dr. Pitts at bedside. Informed RN to have Chem 7 labs for am. Will carry out.
--- NOTE | 2018-12-17 00:49 | NUR ---
LEADS ON Patient allowed RN to put leads on his chest at this time. Patient is confused and lethargic. No signs of discomfort. Chest rise and fall even bilaterally. IVF infusing well. Call light with patient. Will continue to monitor.
[2018-12-17] MEDS: IPRATROPIUM/ALBUTEROL SULFATE 3 ML AMPUL.NEB (DUONEB) INH SCH ×4 (01:00→19:00)
--- NOTE | 2018-12-17 01:49 | NUR ---
VOID/CONFUSED Patient woke up, got up from bed, bed alarm went off. RN arrived at room, patient was sitting at edge of bed. Patient mumbled pointing to bathroom. Patient encourage to pee in specimen cup or urinal. Patient is confused and uncooperative at this time. Patient was assisted to the bathroom by RN. Patient assisted back to bed. Call light with patient. Bed alarm on. IVF infusing. Will continue to monitor.
[2018-12-17] MEDS: NACL 0.9% 1,000 ML IV SCH ×2 (03:00→22:31)
--- NOTE | 2018-12-17 03:53 | NUR ---
NEW IV Previous IV pulled out. Catheter fully intact. No active bleeding noted. New IV at right AC, 22 gauge. IVF infusing well. Patient is confused, no s/s of acute distress. Breathing even and unlabored. Call light with patient. Bed alarm on. Will continue to monitor.
--- NOTE | 2018-12-17 04:10 | NUR ---
IV SITE PULLED OUT Patient pulled IV again. Catheter fully intact. No active bleeding noted. Patient refuses to have another IV inserted at this time. Patient is agitated, repeatedly says "do not touch me", and swings his arms. Charge nurse made aware. Will encourage again later.
[2018-12-17 05:26] LABS: BARBITURATE, URINE NEGATIVE (NEG <=200); BENZODIAZEPINE, URINE POSITIVE (NEG <=150); METHAMPHETAMINES SCREEN,URINE POSITIVE (NEG <=500); OPIATE, URINE POSITIVE (NEG <=100); URINE AMPHETAMINE NEGATIVE (NEG <=500)
[2018-12-17 05:27] LABS: CANNABINOID, URINE NEGATIVE (NEG <=50); COCAINE, URINE NEGATIVE (NEG <=150); PHENCYCLIDINE SCREEN,URINE NEGATIVE (NEG <=25); UR TRICYCLIC ANTIDEPRESSANTS NEGATIVE (NEG <=300); URINE METHADONE NEGATIVE (NEG <=200); URINE OXYCODONE SCREEN NEGATIVE (NEG <=100); URINE PROPOXYPHENE SCREEN NEGATIVE (NEG <=300)
[2018-12-17 06:00] LABS: BASOPHILS # (AUTO) 0.1 K/uL (0.0-0.2); EOSINOPHILS # (AUTO) 0.1 K/uL (0.0-0.4); EOSINOPHILS % (AUTO) 1.9 % (0.0-4.0); HEMATOCRIT 39.3 % (36-54); HEMOGLOBIN 12.7 g/dL (14.0-18.0); LYMPHOCYTES % (AUTO) 26.7 % (20.5-51.5); MEAN CORPUSCULAR HEMOGLOBIN 26 pg (27-31); MEAN CORPUSCULAR HGB CONC 32 % (32-36); MONOCYTES # (AUTO) 0.7 K/uL (0.0-1.0); NEUTROPHILS # (AUTO) 4.5 K/uL (1.8-7.7); NEUTROPHILS % (AUTO) 60.4 % (40.0-70.0); PLATELET COUNT (AUTO) 265 K/uL (130-430); RED BLOOD CELL COUNT(AUTO) 4.89 MIL/uL (4.2-6.2); RED CELL DISTRIBUTION WIDTH 23.8 % (9.0-15.0); WHITE BLOOD COUNT (AUTO) 7.4 K/uL (4.8-10.8)
[2018-12-17 06:07] LABS: ALBUMIN 2.4 g/dL (3.4-4.8); CALCIUM 8.5 mg/dL (8.4-11.0); CREATININE 2.94 mg/dL (0.55-1.30); TOTAL BILIRUBIN 4.2 mg/dL (0.0-1.0)
--- NOTE | 2018-12-17 06:17 | NUR ---
REFUSED XRAY optical lens manufacturing tech at bedside. Patient non compliant at this time, optical lens manufacturing tech encouraged patient multiple times but patient mumbled and did not follow instructions. emergency medical technician/driver stated she will try again later.
--- NOTE | 2018-12-17 06:22 | NUR ---
CLOSING NOTES Patient in bed asleep at this time. No s/s of acute distress noted. Breathing even and unlabored. NO IV site at this time. Attempted to start IV, patient refused and uncooperative. No active bleeding noted. All needs met throughout shift. Fall, safety and isolation precautions maintained throughout shift. Will continue to monitor until patient care is endorsed to oncoming dayshift nurse.
--- NOTE | 2018-12-17 07:50 | NUR ---
AM ASSESSMENT. PT UP IN THE BATHROOM, WITHOUT CLOTHES ON, GAIT UNSTEADY, ATTEMPTED TO ASSIST HIM, HE YELLED AT STAFF, PIERCING GAZE LOOK, THEN HE JUMPED BACK TO BED, CUSSING WORDS, PULLED UP HIS SHEET TO COVER HIMSELF.
[2018-12-17 08:09] LABS: MEAN CORPUSCULAR VOLUME 80 fL (79.0-98.0)
[2018-12-17] MEDS: ISOSORBIDE DINITRATE 10 MG TABLET (ISORDIL) PO SCH (09:00)
[2018-12-17] MEDS: QUEtiapine FUMARATE 25 MG TABLET PO SCH ×2 (09:00→21:00)
[2018-12-17] MEDS: METOPROLOL SUCCINATE 50 MG TAB.SR.24H (TOPROL XL) PO SCH ×2 (09:00→21:00)
[2018-12-17] MEDS: MUPIROCIN 2% TOPICAL OINTMENT 22 GM TP SCH ×2 (09:00→21:00)
[2018-12-17] MEDS: APIXABAN 2.5 MG TABLET PO SCH ×2 (09:00→21:00)
[2018-12-17] MEDS: ASPIRIN 81 MG TAB.CHEW PO SCH (09:00)
[2018-12-17] MEDS: hydrALAZINE HCL 25 MG TABLET PO SCH ×2 (09:00→21:00)
--- NOTE | 2018-12-17 11:42 | NUR ---
NURSING. PT REMAINS IN BED, SHEETS COVERING HIS BODY, REFUSED TO LEAVE HIS NEWS DEPARTMENT INTERN ON, ANOTHER STAFF CAME IN TO TALK TO PT, HIS BEHAVIOR IS ROUGH.
--- NOTE | 2018-12-17 11:56 | NUR ---
ACTIVITY. PT DRAGGING SHEET INTO THE BATHROOM, THEN CAME BACK INTO BED AFTER USING.
--- NOTE | 2018-12-17 12:11 | NUR ---
Social Work: BUILDING SERVICE WORKER met with Pt. who had been sleeping. Pt. stated he did not want anything from BUILDING SERVICE WORKER. BUILDING SERVICE WORKER tried to begin conversation wtih him asking about his visitors he had the other day. Pt. did not want to talk and yelled at BUILDING SERVICE WORKER stating not to leave any papers that he was not going to do anything. BUILDING SERVICE WORKER told him if he changed his mind, she can come back to meet with him.
--- NOTE | 2018-12-17 14:00 | NUR ---
U/S. TOUR PRODUCTION SUPERVISOR CARLYLE CAME IN, PT REFUSED.
--- NOTE | 2018-12-17 15:50 | NUR ---
REST. PT'S BREATHING REGULAR, VISUALLY MONITORED, HIS EYES CLOSED.
[2018-12-17 16:45] VITALS: BP_SYST 134
--- NOTE | 2018-12-17 17:45 | NUR ---
. DR KEARNS IN THE STATION, REPORTED PT'S BEHAVIOR THROUGH OUT THE DAY, UNCOOPERATIVE TO STAFF, REFUSED TO WEAR HOSPITAL GOWN.
[2018-12-17 17:53] VITALS: BP_SYST 134
--- NOTE | 2018-12-17 19:30 | NUR ---
GOING OUT OF ROOM WALKING IN HALLWAY WITHOUT ANY CLOTHES ON, JUST A TOWEL. TALKING LOUDLY INCOHERENTLY. SOMEWHAT DEMANDING. REFUSED VITALS. TALKED TO BY AN MIRIAM BANDA. PT SEEMS PARANOID AND SUSPICIOUS THAT SOMEONE IS AFTER HIM. INSTRUCTED TO STAY IN ROOM. COMPLIANT AT THIS TIME.
--- NOTE | 2018-12-17 20:00 | NUR ---
LYING IN BED, COVERED WITH BLANKET. ABLE TO TURN SELF WELL. SEEMS TO BE DREAMING. TALKING LOUDLY IN HIS SLEEP.
--- NOTE | 2018-12-17 20:30 | NUR ---
PT'S FATHER CALLED IN, UPDATED ON STATUS. WANTED DOCTOR OR HEAD START DIRECTOR TO CALL PT'S STEP MOM, GAETANO YOUNG . NOTE LEFT ON CHART.
--- NOTE | 2018-12-17 23:30 | NUR ---
OPENING NOTE RECEIVED CARE OF PT AND SBAR REPORT FROM MIRIAM GARCIA. PT IS RESTING IN BED, NO S/S OF ACUTE DISTRESS. PT TALKING TO HIMSELF UNDER THE COVERS OF THE BED. PT IS CALM AT THIS TIME. SAFETY PRECAUTIONS ARE IN PLACE: BED IS LOCKED IN LOWEST POSITION, SIDE RAILS UP X2, CALL LIGHT IS WITH PT, PT IS CLOSE TO NURSES STATION. WILL MONITOR.
[2018-12-18] MEDS: IPRATROPIUM/ALBUTEROL SULFATE 3 ML AMPUL.NEB (DUONEB) INH SCH ×4 (00:36→19:00)
--- NOTE | 2018-12-18 01:05 | NUR ---
RESTING PT RESTING IN BED, PT IS COVERED BY BLANKET. TALKING CAN BE HEARD AT INTERVALS. EVEN RISE AND FALL OF CHEST BILATERALLY TO ROOM AIR. NO S/S OF ACUTE DISTRESS. NO SIGN OF PAIN OR DISCOMFORT. SAFETY PRECAUTIONS REMAIN IN PLACE. WILL MONITOR.
--- NOTE | 2018-12-18 03:05 | NUR ---
AGITATED PT GOT UP FROM BED AND WALKED IN HALLWAY SHOUTING. PT ASSISTED TO RETURN TO BED. PT NOW CALM, LYING IN BED, TALKING TO HIMSELF. NO S/S OF ACUTE DISTRESS, BREATHING IS UNLABORED TO ROOM AIR. SAFETY PRECAUTIONS OBSERVED. WILL MONITOR.
--- NOTE | 2018-12-18 05:25 | NUR ---
RN ROUNDS: PT RESTING IN BED, NO S/S OF ACUTE DISTRESS, BREATHING IS UNLABORED TO ROOM AIR. SAFETY PRECAUTIONS ARE IN PLACE. WILL MONITOR.
--- NOTE | 2018-12-18 06:50 | NUR ---
RN ROUNDS: PT HAS BEEN AGITATED THIS MORNING, ATTEMPTING TO COME OUT OF THE ROOM, AND YELLING. PT MOOD IS EXTREMELY LABILE, AND GOES FROM CRYING TO ANGER WITHIN SECONDS. NO S/S OF ACUTE DISTRESS, BREATHING IS UNLABORED TO ROOM AIR. NO SIGNS OF PAIN OR DISCOMFORT. SAFETY AND ISOLATION PRECAUTIONS ARE IN PLACE. ALL NEEDS MET DURING SHIFT. WILL CONTINUE TO MONITOR UNTIL PT CARE IS ENDORSED TO DAY SHIFT RN.
--- NOTE | 2018-12-18 07:25 | NUR ---
Opening Note received bedside SBAR report from property site manager RN, patient resting in bed, no acute distress noted, room close to nurses station, educated patient on use of call light and asked to call for assistance, patient verbalized understanding, call light in reach, educated patient on use of bed alarm for patient safety, patient refusing bed alarm, bed in low and locked position.
[2018-12-18] MEDS: ASPIRIN 81 MG TAB.CHEW PO SCH (07:54)
[2018-12-18] MEDS: ISOSORBIDE DINITRATE 10 MG TABLET (ISORDIL) PO SCH (07:55)
--- NOTE | 2018-12-18 07:55 | NUR ---
Physician Rounds Dr. Medina at bedside examining patient.
[2018-12-18] MEDS: METOPROLOL SUCCINATE 50 MG TAB.SR.24H (TOPROL XL) PO SCH ×2 (07:57→20:34)
[2018-12-18] MEDS: LISINOPRIL 10 MG TABLET (PRINIVIL) PO SCH (07:57)
[2018-12-18] MEDS: SPIRONOLACTONE 50 MG TABLET (ALDACTONE) PO SCH (07:57)
[2018-12-18] MEDS: hydrALAZINE HCL 25 MG TABLET PO SCH ×2 (07:58→20:33)
[2018-12-18] MEDS: FUROSEMIDE 20 MG TABLET PO SCH ×2 (07:58→20:34)
[2018-12-18] MEDS: QUEtiapine FUMARATE 25 MG TABLET PO SCH ×2 (07:58→20:34)
[2018-12-18] MEDS: APIXABAN 2.5 MG TABLET PO SCH ×2 (07:59→20:36)
[2018-12-18 08:00] VITALS: BP_SYST 119
[2018-12-18] MEDS: MUPIROCIN 2% TOPICAL OINTMENT 22 GM TP SCH ×2 (08:08→20:40)
[2018-12-18] MEDS: NACL 0.9% 1,000 ML IV SCH ×2 (08:08→15:33)
--- NOTE | 2018-12-18 08:37 | NUR ---
Linen Change patient spilled water in bed, linen change provided, patient refusing gown, no additional needs at this time.
--- NOTE | 2018-12-18 10:29 | NUR ---
RN Rounds patient resting in bed, respirations even and unlabored on room air, no acute distress noted, patients family at bedside.
[2018-12-18 11:13] LABS: BASOPHILS % (AUTO) 0.9 % (0.0-2.0); EOSINOPHILS # (AUTO) 0.1 K/uL (0.0-0.4); EOSINOPHILS % (AUTO) 1.4 % (0.0-4.0); HEMATOCRIT 38.9 % (36-54); HEMOGLOBIN 12.6 g/dL (14.0-18.0); LYMPHOCYTES # (AUTO) 1.1 K/uL (1.0-5.5); MEAN CORPUSCULAR HEMOGLOBIN 26 pg (27-31); MEAN CORPUSCULAR HGB CONC 32 % (32-36); MEAN CORPUSCULAR VOLUME 80 fL (79.0-98.0); MONOCYTES # (AUTO) 0.6 K/uL (0.0-1.0); MONOCYTES % (AUTO) 10.7 % (1.7-9.3); NEUTROPHILS # (AUTO) 3.5 K/uL (1.8-7.7); PLATELET COUNT (AUTO) 258 K/uL (130-430); RED BLOOD CELL COUNT(AUTO) 4.86 MIL/uL (4.2-6.2); RED CELL DISTRIBUTION WIDTH 24.1 % (9.0-15.0); WHITE BLOOD COUNT (AUTO) 5.3 K/uL (4.8-10.8)
[2018-12-18 11:26] LABS: ALBUMIN 2.4 g/dL (3.4-4.8); CALCIUM 8.4 mg/dL (8.4-11.0); CREATININE 1.6 mg/dL (0.55-1.30); POTASSIUM 3.5 mmol/L (3.5-5.1); TOTAL BILIRUBIN 4.4 mg/dL (0.0-1.0)
--- NOTE | 2018-12-18 12:08 | NUR ---
RN Rounds patient sitting up in bed eating lunch, tolerating well, patient denies any pain or nausea, no acute distress noted.
[2018-12-18 12:20] VITALS: BP_SYST 105
--- NOTE | 2018-12-18 14:11 | NUR ---
RN Rounds patient resting in bed, respirations even and unlabored, patient denies any chest pain, no acute distress noted.
--- NOTE | 2018-12-18 15:25 | NUR ---
IV access educated patient on use and purpose of IV access, patient verbalized understanding, IV catheter placed by meteorologist in charge to left forearm, 22G, flushes easily with blood return, patient tolerated well.
[2018-12-18] MEDS: MORPHINE 4 MG/ML INJ. SYRINGE IVP PRN ×2 (15:34→20:33)
[2018-12-18 15:44] VITALS: BP_SYST 104
--- NOTE | 2018-12-18 15:49 | NUR ---
safety education patient ambulated to bathroom, voided x1, patient ambulated back to bed, educated patient on use and side effects of morphine and asked patient to call for assistance for patient safety and fall prevention, patient verbalized understanding, patient resting in bed, IV fluids infusing well, no redness or swelling noted at IV site.
--- NOTE | 2018-12-18 16:20 | NUR ---
Called patients father Dr. Pelaez spoke with patients Kris on the phone, Dr. Pelaez informed him that information cannot be released over the phone due to HIPPA and asked for the patients father to come into the hospital, per patients father Kris he will come in tomorrow.
[2018-12-18 16:39] VITALS: BP_SYST 117
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
--- NOTE | 2018-12-18 17:55 | NUR ---
RN Rounds patient resting in bed, respirations even and unlabored, patient reports pain is controlled, no acute distress noted, patients family at bedside.
--- NOTE | 2018-12-18 19:07 | NUR ---
Closing Note bedside SBAR report given to receiving RN, patient resting in bed, respiration even and unlabored on room air, no acute distress noted, IV site clean, dry, intact and infusing well, room close to nurses station, educated patient on use of call light and asked to call for assistance, patient verbalized understanding, call light in reach, educated patient on use of bed alarm for patient safety, patient refusing bed alarm, bed in low and locked position, care endorsed to supervisor customer complaint service RN.
--- NOTE | 2018-12-18 19:15 | NUR ---
Opening notes Received report. Patient is sleeping at this time. No signs of distress noted. Breathing even and unlabored. IV patent and intact, infusing fluids. No needs at this time. Call light with the patient. safety precautions in place.
[2018-12-18 20:30] VITALS: BP_SYST 145
--- NOTE | 2018-12-18 20:35 | NUR ---
Medications Patient awake and yelling he is in pain. Patient is agitated. Scheduled and PRN pain medication given. Patient tolerated well. No signs of allergic reaction noted. No other needs at this time. Patient went back to sleep. Call light with the patient. Safety precautions in place.
--- NOTE | 2018-12-18 22:00 | NUR ---
Sleeping/agitation Patient intermittently sleeps. When awake patient is agitated and tearful. Patient reoriented and comforted. Patient goes back to sleep. No other needs. Call light with the patient. safety precautions in place.
--- NOTE | 2018-12-19 00:15 | NUR ---
Sleeping/Agitated Patient sleeps and awakens agitated and tearful. Patient reoriented. Patient went back to sleep. Call light with the patient. Safety precautions in place.
[2018-12-19] MEDS: IPRATROPIUM/ALBUTEROL SULFATE 3 ML AMPUL.NEB (DUONEB) INH SCH ×4 (00:48→20:00)
[2018-12-19 01:17] VITALS: BP_SYST 108
--- NOTE | 2018-12-19 02:00 | NUR ---
Sleeping Patient sleeping. Patient talks in his sleep. No signs of distress noted. Breathing even and unlabored. Call light with the patient. Safety precautions in place.
--- NOTE | 2018-12-19 04:42 | NUR ---
Lab draw Patient compliant with blood draw. tolerated well. No signs of distress noted. Breathing even and unlabored. Patient went back to sleep. Call light with the patient. Safety precautions in place.
[2018-12-19] MEDS: NACL 0.9% 1,000 ML IV SCH ×2 (05:19→12:36)
[2018-12-19 05:59] LABS: ALBUMIN 2.7 g/dL (3.4-4.8); CALCIUM 8.8 mg/dL (8.4-11.0); CREATININE 1.23 mg/dL (0.55-1.30); POTASSIUM 3.8 mmol/L (3.5-5.1); TOTAL BILIRUBIN 4.2 mg/dL (0.0-1.0)
--- NOTE | 2018-12-19 06:10 | NUR ---
CONSULT I CALLED CONSULT FOR DR. LANGSTON I SPOKE WITH [address]IRE [address] SHAFT AND STEERING POST REPAIRER IS FOR RE-EVALUATION ON THIS PATIENT NUMBER I CALLED [phone]
--- NOTE | 2018-12-19 06:31 | NUR ---
Closing notes Patient is asleep at this time. Patient intermittently sleeps throughout the night. When awake, patient is disoriented, upset and tearful. Patient reoriented as needed. Patient talks in his sleep. IV patent and intact, infusing fluids. All needs met throughout the shift. Call light with the patient. Safety precautions in place. will endorse care to day shift RN.
[2018-12-19 06:32] LABS: BASOPHILS # (AUTO) 0.1 K/uL (0.0-0.2); BASOPHILS % (AUTO) 1.4 % (0.0-2.0); EOSINOPHILS # (AUTO) 0.1 K/uL (0.0-0.4); HEMOGLOBIN 13.9 g/dL (14.0-18.0); LYMPHOCYTES # (AUTO) 1.6 K/uL (1.0-5.5); LYMPHOCYTES % (AUTO) 32.5 % (20.5-51.5); MEAN CORPUSCULAR HEMOGLOBIN 26 pg (27-31); MEAN CORPUSCULAR HGB CONC 32 % (32-36); MEAN CORPUSCULAR VOLUME 82 fL (79.0-98.0); MONOCYTES # (AUTO) 0.6 K/uL (0.0-1.0); MONOCYTES % (AUTO) 11.6 % (1.7-9.3); NEUTROPHILS # (AUTO) 2.6 K/uL (1.8-7.7); NEUTROPHILS % (AUTO) 51.5 % (40.0-70.0); PLATELET COUNT (AUTO) 297 K/uL (130-430); RED BLOOD CELL COUNT(AUTO) 5.37 MIL/uL (4.2-6.2); RED CELL DISTRIBUTION WIDTH 23.9 % (9.0-15.0)
--- NOTE | 2018-12-19 07:30 | NUR ---
ASSUMPTION OF CARE: RECEIVED PT AWAKE, CONFUSED, NONCOMPLIANT WITH TREATMENT, REFUSES VS, DX: INADEQUATE PERFUSION, R/T CHEST PAIN, NO C/O PAIN AT THIS TIME, SITTING UP ON BEDSIDE, ORIENTED TO NAME ONLY, AFEBRILE, NO S/S OF DISTRESS, BREATH SOUNDS ARE CLEAR, BREATHING UNLABORED, IV SITE INTACT, PATENT, NO REDNESS OR SWELLING, WRAPPED IN KERLEX GAUZE DRSG, BED IN LOWEST POSITION, SIDE RAILS UP X2, CALL LIGHT PLACED WITHIN REACH, ROOM CLOSE TO NURSES STATION, WILL CON'T TO MONITOR AND ASSESS.
[2018-12-19] MEDS: MUPIROCIN 2% TOPICAL OINTMENT 22 GM TP SCH ×2 (09:00→21:00)
[2018-12-19] MEDS: hydrALAZINE HCL 25 MG TABLET PO SCH ×2 (09:00→21:00)
[2018-12-19] MEDS: LISINOPRIL 10 MG TABLET (PRINIVIL) PO SCH (09:00)
[2018-12-19] MEDS: SPIRONOLACTONE 50 MG TABLET (ALDACTONE) PO SCH (09:00)
[2018-12-19] MEDS: FUROSEMIDE 20 MG TABLET PO SCH ×2 (09:00→21:00)
[2018-12-19] MEDS: APIXABAN 2.5 MG TABLET PO SCH ×2 (09:00→21:00)
[2018-12-19] MEDS: ISOSORBIDE DINITRATE 10 MG TABLET (ISORDIL) PO SCH (09:00)
[2018-12-19] MEDS: ASPIRIN 81 MG TAB.CHEW PO SCH (09:00)
[2018-12-19] MEDS: METOPROLOL SUCCINATE 50 MG TAB.SR.24H (TOPROL XL) PO SCH ×2 (09:00→21:00)
--- NOTE | 2018-12-19 09:00 | NUR ---
VISIT: AT BEDSIDE FOR ASSESSMENT OF PT, NEW ORDERS GIVEN, WILL CON'T WITH POC.
--- NOTE | 2018-12-19 10:30 | NUR ---
VISIT: AT BEDSIDE FOR PSYCH ASSESSMENT, NO NEW ORDERS GIVEN, WILL CON'T WITH POC
--- NOTE | 2018-12-19 11:00 | NUR ---
ENDORSEMENT: PT ENDORSED TO NURSES ADEEL PINEDA AND MAXIM PINEDA, TRANSFERRED TO ROOM 131-A FOR DIRECT OBSERVATION.
--- NOTE | 2018-12-19 11:05 | NUR ---
ASSUME CARE REPORT WAS GIVEN BY MIRIAM RANGEL. PATIENT SEEN IN ROOM AND SLEEPING IN BED. PATIENT WAS MOVED TO ROOM 131.
--- NOTE | 2018-12-19 11:30 | NUR ---
VISIT: AT BEDSIDE FOR ASSESSMENT OF PT, NEW ORDERS GIVEN, WILL CON'T TO MONITOR AND CON'T WITH POC.
--- NOTE | 2018-12-19 12:00 | NUR ---
ATIVAN GIVEN PATIENT BECAME AGGITATED AND TRIED TO GET OUT OF BED. PATIENT DEMANDED HE WANTED TO LEAVE AND BECAME AGGRESSIVE. SECURITY WAS CALLED TO BE ON STANDBY. ATIVAN 2MG IVP GIVEN IN RIGHT AC PERIPHERAL LINE.
--- NOTE | 2018-12-19 12:15 | NUR ---
NOTES PATIENT ATTEMPTED TO GET OUT OF BED AND WAS INSTRUCTED TO LAY BACK DOWN. PATIENT IS CURRENTLY LYING BACK DOWN SLEEPING.
[2018-12-19] MEDS ORDERED: LORazepam 2 MG/ML VIAL ONE (12:16)
--- NOTE | 2018-12-19 12:30 | NUR ---
RN NOTES PATIENT IS SLEEPING IN BED AND TALKING TO HIMSELF.
--- NOTE | 2018-12-19 12:34 | NUR ---
SS Note: Pt is currently on a 5150 hold for danger to self and gravely disabled written by Dr. Stewart on 12/19 @10:30AM. Clinicals faxed to [facility] for placement. SS will remain available when needed. Addendum: 12/19/18 at 1541 by Aubrey LUNA Clinicals faxed to [facility] and were faxed to: [facility], [facility], and [facility]. There were no beds for [facility], [facility], [facility] and [facility] [employer]
[2018-12-19 12:44] VITALS: BP_SYST 103
--- NOTE | 2018-12-19 12:45 | NUR ---
RN NOTES PATIENT IS SLEEPING IN BED WHILE TOSSING AND TURNING.
--- NOTE | 2018-12-19 13:01 | NUR ---
RN NOTES PATIENT IS LAYING IN BED SLEEPING AND TALKING TO HIMSELF.
--- NOTE | 2018-12-19 13:15 | NUR ---
RN NOTES PATIENT IS LYING IN BED SLEEPING. NO DISTRESS NOTED.
--- NOTE | 2018-12-19 13:30 | NUR ---
BREATHING TREATMENT: RT RENDERED BREATHING TREATMENT ORDERED. NO PROBLEM.
--- NOTE | 2018-12-19 13:39 | NUR ---
Nutrition Assessment (short note d/t lack of time) A- RD reviewed pt's current EMR including diet Hx, physician notes, nursing notes, pertinent labs/meds/procedures, care trends and care activity. Pt is due for nutritional assessment. Per RN report, pt was very agitated this morning and is non-compliant. Pt has been refusing tests and lab work. Per EMR, PO intake 12/18: 78% average of 3 meals, 12/17 28% average of 3 meals. Pt is morbidly obese and homeless and is not yet meeting adequate nutrition w/ inconsistent PO intake. Pt is pending psych consult for behavior management. Ht: 6'3 Wt: 320 lb, 145 kg %IBW: 163 IBW: 196 lb, 89 kg; Adj IBW: 227 lb, 103 kg ESTIMATED NUTRITIONAL REQUIREMENTS CALORIES/DAY: 2610-0475 kcal/day (25-30 kcal/kg IBW for Obesity) PROTEIN/DAY: 71-134 gm/day (.8-1.5 gm/kg IBW for Renal Dz and COPD) FLUID/DAY: per MD (Renal Dz) D: Morbid Obesity r/t inability to access healthier food choices AEB possible consumption of high calorie food and beverage from fast food restaurants and convenient stores, homelessness and BMI 40 kg/m2. I: Recommend: Cardiac Low CHOL Low Fat 2gm Na diet. Recommend diet modification for weight loss and lifestyle change. M: Monitor appetite and PO intake w/ goal of pt meeting at least 75% of estimated nutritional needs, labs trending WNL, normal GI function, skin integrity/wt maintenance. E: RD to F/U within 3-5 days PEPPER CHONG
--- NOTE | 2018-12-19 13:45 | NUR ---
RN ROUNDS: BREATHING TREATMENT ON GOING. NO PROBLEM.
--- NOTE | 2018-12-19 13:52 | NUR ---
Dietitian Recommendation I: Recommend: Cardiac Low CHOL Low Fat 2gm Na diet. Recommend diet modification for weight loss and lifestyle change. ARLETTE, RD
--- NOTE | 2018-12-19 14:00 | NUR ---
RN ROUNDS: PATIENT SLEEPING THIS TIME. NOT IN ANY DISTRESS.
--- NOTE | 2018-12-19 14:15 | NUR ---
RN NOTES: PATIENT ATTEMPTED TO GET OUT OF BED BUT WAS INSTRUCTED TO LAY BACK DOWN. PATIENT IS CURRENTLY ASLEEP. NO SIGNS OF DISTRESS NOTED.
--- NOTE | 2018-12-19 14:30 | NUR ---
RN NOTES PATIENT IS SLEEPING IN BED. FAMILY MEMBER IS AT BEDSIDE. NO DISTRESS NOTED.
--- NOTE | 2018-12-19 14:45 | NUR ---
RN NOTES: PATIENT IS ASLEEP IN BED. FAMILY MEMBER BY BEDSIDE. NO SIGNS OF DISTRESS NOTED.
--- NOTE | 2018-12-19 15:00 | NUR ---
RN NOTES: PATIENT IS DROWSY AND LYING IN BED TALKING WITH A FAMILY MEMBER. NO DISTRESS NOTED.
--- NOTE | 2018-12-19 15:15 | NUR ---
RN NOTES: PATIENT IS SLEEPING IN BED. NO SIGNS OF DISTRESS NOTED.
--- NOTE | 2018-12-19 15:30 | NUR ---
RN ROUNDS: PATIENT IS ASLEEP IN BED AND OCCASIONALLY TALKING IN HIS SLEEP. NO DISTRESS NOTED.
--- NOTE | 2018-12-19 15:45 | NUR ---
RN NOTES: PATIENT IS ASLEEP WHILE TALKING IN HIS SLEEP. IV IS PATENT WITH NO SIGNS OF INFILTRATION AND FLUIDS ARE RUNNING PER DOCTORS ORDERS. NO DISTRESS NOTED.
--- NOTE | 2018-12-19 16:00 | NUR ---
RN NOTES: PATIENT IS SLEEPING WITH NO SIGNS OF DISTRESS.
--- NOTE | 2018-12-19 16:15 | NUR ---
RN NOTES: PATIENT IS SLEEPING IN BED. OCCASIONALLY TALKING IN HIS SLEEP. NO DISTRESS NOTED.
[2018-12-19 16:22] VITALS: BP_SYST 98
--- NOTE | 2018-12-19 16:30 | NUR ---
RN NOTES: PATIENT IS SLEEPING IN BED AND OCCASIONALLY TALKING TO HIMSELF. NO DISTRESS NOTED.
--- NOTE | 2018-12-19 16:45 | NUR ---
RN NOTES: PATIENT WOKE UP AGITATED AND GOT OUT OF BED YELLING. PATIENT TRIED TO PULL OUT HIS IV. I DISCONNECTED THE TUBING SO HE WOULD NOT PULL IT OUT. HE YELLED HE HAD TO PEE AND HE PROCEEDED TO PEE ON THE FLOOR AFTER BEING TOLD TO GO TO THE BATHROOM. PATIENT FINISHED PEEING AND WENT BACK INTO BED.
[2018-12-19] MEDS: LORazepam 2 MG/ML VIAL IVP PRN ×2 (16:50→22:20)
--- NOTE | 2018-12-19 17:00 | NUR ---
RN NOTES: ATIVAN 2MG IVP WAS GIVEN IN RIGHT AC IV. PATIENT IS CURRENTLY SLEEPING AND MUMBLING. BREATHING IS UNLABORED AND CHEST EXPANSION IS SYMMETRICAL. NO DISTRESS NOTED.
--- NOTE | 2018-12-19 17:15 | NUR ---
RN NOTES: PATIENT IS SLEEPING IN BED. IV WAS RECONNECTED RUNNING ON 100 ML OF NORMAL SALINE. IV SITE PATENT WITH NO SIGNS OF INFILTRATION AND COVERED WITH OZZIE TO PROTECT FROM PATIENT TRYING TO PULL IT OUT. PATIENT IS MUMBLING IN HIS SLEEP. NO DISTRESS NOTED.
--- NOTE | 2018-12-19 17:30 | NUR ---
RN NOTES: PATIENT IS SLEEPING IN BED AND MUMBLING IN HIS SLEEP. NO SIGNS OF DISTRESS NOTED. BREATHING IS UNLABORED. IV IS PATENT AND RUNNING FLUIDS PER DOCTORS ORDERS.
--- NOTE | 2018-12-19 17:45 | NUR ---
RN NOTES: PATIENT IS SLEEPING IN BED. NO SIGNS OF DISTRESS NOTED.
--- NOTE | 2018-12-19 18:00 | NUR ---
RN NOTES: PATIENT IS SLEEPING IN BED. PATIENT CONTINUES TO MUMBLE IF HES TALKING TO SOMEONE. PATIENT REFUSES TO KEEP HIS BLANKETS ON AND CONTINUES TO PUSH THEM OFF. NO DISTRESS NOTED.
--- NOTE | 2018-12-19 18:15 | NUR ---
RN NOTES: PATIENT ATTEMPTED TO GET OUT OF BED AND WAS INSTRUCTED TO LAY BACK DOWN. PATIENT IS CURRENTLY LAYING DOWN ASLEEP. NO SIGNS OF DISTRESS NOTED.
--- NOTE | 2018-12-19 18:30 | NUR ---
RN NOTES: PATIENT IS CURRENTLY SLEEPING IN BED. NO DISTRESS NOTED.
--- NOTE | 2018-12-19 18:45 | NUR ---
RN NOTES: PATIENT IS SLEEPING. NO DISTRESS NOTED.
--- NOTE | 2018-12-19 18:51 | NUR ---
CLOSING NOTES: PATIENT IS CURRENTLY ON 5150 HOLD. 1 ON 1 SITTER. PATIENT IS SLEEPING AND MUMBLING TO HIMSELF. NO DISTRESS NOTED. IV IS PATENT WITH NO SIGNS OF INFILTRATION AND RUNNING FLUIDS PER DOCTORS ORDERS. FALL, SAFETY, AND CONTACT PRECAUTIONS FOLLOWED THROUGHOUT THE SHIFT. AWAITING PSYCH FACILITY WHEN MEDICALLY CLEARED. WILL ENDORSE PATIENT TO ONCOMING NURSE.
--- NOTE | 2018-12-19 19:00 | NUR ---
PT ON LYING ON HIS HE KEEP MOVING SIDE TO SIDE AND MUMBLING.NO SIGNS OF ANY DISTRESS.CONTINUE OF MONITORING.
--- NOTE | 2018-12-19 19:01 | NUR ---
EX CALLED VERY UPSET MICHAEL EX CALLED AND VERY UPSET THAT PSYCHIATRIST DID NOT CALL HER. SHE SAID, THOUGH SHE IS ALREADY TO THE PATIENT, SHE IS STILL THE LEGAL AND HAS THE RIGHT TO MAKE DECISION FOR THE . PATIENT CAN RECEIVE VISITOR BUT DO NOT DISCLOSE ANY INFORMATION EXCEPT WITH THE EX . ALL DECISION WILL BE MADE BY THE EX . SHE IS AWARE THAT PT WILL BE ON AND NEEDS TO BE TRANSFER TO [facility]. SHE ALSO SPOKE TO DR KEARNS AND MADE AWARE ABOUT THE LATEST CONDITION OF PATIENT. CYNTHIA/MAXIM RN MADE ABOUT THE REQUEST AND WISHES. ADMITTING MADE AWARE TO UPDATE THE EMERGENCY CONTACT TO WRITE THE ONLY FOR [employer] [employer].
--- NOTE | 2018-12-19 19:15 | NUR ---
PT LYING ON BED STILL KEEP MOVING SIDE TO SIDE NO SIGNS OF ANY DISTRESS.CONTINUE OF MONITORING.
--- NOTE | 2018-12-19 19:30 | NUR ---
PT AWAKE HE TRIED TO GET UP ON THE BED INSTRUCT PT TO LYING BACK ON THE BED.WILL CONTINUE OF MONITORING.
--- NOTE | 2018-12-19 19:45 | NUR ---
PT GET UP ON HIS BED FAST I CALLED FOR HELP AND FARM IMPLEMENT MECHANIC JACKIE CAME TO HELP BUT PT IS BIG HE CALLED THE SECURITY`3 OF THE SECURITY CAME AND 1 OF THE NURSE ORION TO HELP US TO PUT IT BACK THE PT ON HIS BED.WE CONVINCE THE PT TO RELAX.WILL CONTINUE OF MONITORING.
--- NOTE | 2018-12-19 19:55 | NUR ---
Paged Dr. Barros s/w Erin
[2018-12-19 20:00] VITALS: BP_SYST 152
--- NOTE | 2018-12-19 20:00 | NUR ---
PT LYING ON HIS BED STILL AGITATED.WE KEEP MONITORING.
--- NOTE | 2018-12-19 20:00 | NUR ---
Initial note: Received report from akira RN. Patient is in bed, yelling and attempting to get out of bed. Alert, oriented to name only. IV to left forearm present. Patient is on a 5150 hold for danger to self and gravely disabled. 1:1 sitter present for safety. Bed locked in lowest position, side rails raised, bed alarm on. Will continue with plan of care.
--- NOTE | 2018-12-19 20:15 | NUR ---
PT LYING ON BED HIS CALM FOR A WHILE .CONTINUE OF MONITORING.
--- NOTE | 2018-12-19 20:20 | NUR ---
Second call for Dr. Barros s/diamante Khan
--- NOTE | 2018-12-19 20:30 | NUR ---
PT IS SLEEPING NOW.CONTINUE OF MONITORING.
--- NOTE | 2018-12-19 20:36 | NUR ---
Called and left a message to Dr. Barros's cellphone number.
--- NOTE | 2018-12-19 20:45 | NUR ---
PT IS SLEEPING SOMETIMES HE COUGH AND SPIT ON THE SIDE OF HIS BED.WILL CONTINUE OF MONITORING.
[2018-12-19] MEDS: QUEtiapine FUMARATE 100 MG TABLET PO SCH (21:00)
--- NOTE | 2018-12-19 21:00 | NUR ---
PT IS SLEEPING BUT STILL SHOWING HIS RESTLESS.CONTINUE OF MONITORING.
--- NOTE | 2018-12-19 21:15 | NUR ---
PT IS SLEEPING HIS RESTLESS EVERY TIMES HE MOVES.WILL CONTINUE OF MONITORING.
--- NOTE | 2018-12-19 21:22 | NUR ---
Attempted to reach Dr. Barros: Patient is still very agitated. Psych consult Dr. Barros (on-call for the night) was paged 3 times by US Sarah for medication orders. Unable to reach Dr. Barros at this time, will page Dr. Pelaez for orders.
--- NOTE | 2018-12-19 21:22 | NUR ---
Mendoza Pelaez s/w Sandy
--- NOTE | 2018-12-19 21:30 | NUR ---
PT LYING ON BED CLOSING HIS EYES SHOWING OF RESTLESS.CONTINUE OF MONITORING.
[2018-12-19] MEDS ORDERED: OLANZapine IntraMuscular 10 MG VIAL (FOR I.M. INJECTION ONLY) IM PRN (21:45)
--- NOTE | 2018-12-19 21:45 | NUR ---
Dr. Pelaez: Spoke with Dr. Pelaez over phone. MD made aware regarding patient's agitation and inefficacy of Ativan IVP. New medication orders received. Additionally instructed by MD to administer Ativan IVP, Haldol IM, Benadryl IM together. Per MD, if previously mentioned medications were ineffective, RN is to administer Zyprexa. RN to input and follow through with orders.
--- NOTE | 2018-12-19 21:45 | NUR ---
PT IS SLEEPING BUT EVERY TIMES HE MOVES HIS RESTLESS.CONTINUE OF MONITORING.
--- NOTE | 2018-12-19 22:00 | NUR ---
PT ON BED HE STILL AGITATED.CONTINUE OF MONITORING.
[2018-12-19] MEDS: DIPHENHYDRAMINE INJ 50 MG/ML VIAL IM PRN (22:12)
[2018-12-19] MEDS: HALOPERIDOL LACTATE 5 MG/ML VIAL IM PRN (22:12)
--- NOTE | 2018-12-19 22:15 | NUR ---
PT ON BED NURSE CAME TO PASS THE MEDICINE,PT STILL RESTLESS.WILL CONTINUE OF MONITORING.
--- NOTE | 2018-12-19 22:24 | NUR ---
Agitation: Patient is awake and combative, attempting to get out of bed. 3 security personnel and house calls nurse MIRIAM Holt present in room to help maintain safe environment. Ativan IVP, Benadryl IM, and Haldol IM administered as ordered by MD. Medications were effective, patient became less agitated. Patient's IV site to left forearm is patent and benign, has good blood return. Sitter present in room. Safety, fall, contact iso precautions in place. Will continue monitoring.
--- NOTE | 2018-12-19 22:30 | NUR ---
PT IS SLEEPING, RT CAME TO GIVE A BREATHING TREATMENT.WILL CONTINUE OF MONITORING.
--- NOTE | 2018-12-19 22:33 | NUR ---
BiPAP on: RT at bedside to place patient on BiPAP. Patient was satting 88% on room air. After placement of BiPAP, patient now satting 97%. Sitter at bedside. Safety, fall, contact isolation precautions in place. Will continue to monitor.
--- NOTE | 2018-12-19 22:45 | NUR ---
PT IS SLEEPING WITH BI-PAP,WILL CONTINUE OF MONITORING.
--- NOTE | 2018-12-19 23:00 | NUR ---
PT STILL SLEEPING WITH BI-PAP WHEN HE MOVES HIS RESTLESS, WILL CONTINUE OF MONITORING.
--- NOTE | 2018-12-19 23:15 | NUR ---
PT STILL SLEEPING WITH BI-PAP.WILL CONTINUE OF MONITORING.
--- NOTE | 2018-12-19 23:30 | NUR ---
PT IS LYING ON BED CLOSING HIS BOTH EYES.WILL CONTINUE OF MONITORING.
--- NOTE | 2018-12-19 23:45 | NUR ---
PT IS SLEEPING NO SIGNS OF ANY DISTRESS FOR NOW.WILL CONTINUE OF MONITORING.
--- NOTE | 2018-12-20 | NUR ---
PT STILL SLEEPING HIS CALM FOR NOW.CONTINUE OF MONITORING.
--- NOTE | 2018-12-20 00:15 | NUR ---
PT STILL SLEEPING WITH BI-PAP NO SIGNS OF ANY DISTRESS FOR NOW,WILL CONTINUE OF MONITORING.
[2018-12-20 00:24] VITALS: BP_SYST 145
--- NOTE | 2018-12-20 00:30 | NUR ---
PT RESTING NO SIGNS OF ANY DISTRESS,WILL CONTINUE OF MONITORING.CLOSING MY NOTES, ENDORSEMENT TO 12-6AM SHIFT.
--- NOTE | 2018-12-20 00:45 | NUR ---
PT IS ASLEEP AND RESTING IN BED COMFORTABLY. WILL CONTINUE TO MONITOR.
--- NOTE | 2018-12-20 01:00 | NUR ---
PT IS ASLEEP AND RESTING IN BED COMFORTABLY. WILL CONTINUE TO MONITOR.
--- NOTE | 2018-12-20 01:15 | NUR ---
PT IS ASLEEP AND RESTING IN BED COMFORTABLY. WILL CONTINUE TO MONITOR.
[2018-12-20] MEDS: IPRATROPIUM/ALBUTEROL SULFATE 3 ML AMPUL.NEB (DUONEB) INH SCH ×3 (01:28→20:07)
[2018-12-20] MEDS ORDERED: OLANZapine 10 MG TABLET PO PRN (01:30)
--- NOTE | 2018-12-20 01:30 | NUR ---
PT IS ASLEEP AND RESTING COMFORTABLY IN BED. RT CAME IN AND IS CURRENTLY AT BEDSIDE .WILL CONTINUE TO MONITOR.
--- NOTE | 2018-12-20 01:40 | NUR ---
ABG draw: Stat ABG being drawn at this time per MD order. Patient was compliant with blood draw. 1:1 sitter present for safety. Safety, fall, contact iso precautions in place. Will continue to monitor.
--- NOTE | 2018-12-20 01:45 | NUR ---
PT IS ASLEEP AND RESTING COMFORTABLY IN BED. RT IS CURRENTLY AT BEDSIDE .WILL CONTINUE TO MONITOR
--- NOTE | 2018-12-20 02:00 | NUR ---
PT IS ASLEEP AND RESTING COMFORTABLY IN BED. WILL CONTINUE TO MONITOR
--- NOTE | 2018-12-20 02:15 | NUR ---
PT IS ASLEEP AND RESTING COMFORTABLY IN BED. WILL CONTINUE TO MONITOR
--- NOTE | 2018-12-20 02:30 | NUR ---
PT IS ASLEEP AND RESTING COMFORTABLY IN BED. WILL CONTINUE TO MONITOR
--- NOTE | 2018-12-20 02:45 | NUR ---
PT IS ASLEEP AND RESTING COMFORTABLY IN BED. WILL CONTINUE TO MONITOR
--- NOTE | 2018-12-20 03:00 | NUR ---
PT IS ASLEEP AND RESTING COMFORTABLY IN BED. WILL CONTINUE TO MONITOR
--- NOTE | 2018-12-20 03:15 | NUR ---
PT IS ASLEEP AND RESTING COMFORTABLY IN BED. WILL CONTINUE TO MONITOR
--- NOTE | 2018-12-20 03:30 | NUR ---
PT IS ASLEEP AND RESTING COMFORTABLY IN BED. WILL CONTINUE TO MONITOR
--- NOTE | 2018-12-20 03:45 | NUR ---
PT IS ASLEEP AND RESTING COMFORTABLY IN BED. WILL CONTINUE TO MONITOR
--- NOTE | 2018-12-20 04:00 | NUR ---
PT IS ASLEEP AND RESTING COMFORTABLY IN BED. WILL CONTINUE TO MONITOR
--- NOTE | 2018-12-20 04:15 | NUR ---
PT IS ASLEEP AND RESTING COMFORTABLY IN BED. WILL CONTINUE TO MONITOR
--- NOTE | 2018-12-20 04:24 | NUR ---
Rounds: Patient is calmly resting in bed. No acute distress. BiPAP in place, patient tolerating well. IV fluids infusing as ordered to left forearm IV site. Sitter present at all times. Safety, fall, contact iso precautions in place. Will continue monitoring.
--- NOTE | 2018-12-20 04:30 | NUR ---
PT IS ASLEEP AND RESTING COMFORTABLY IN BED. WILL CONTINUE TO MONITOR
[2018-12-20] MEDS: NACL 0.9% 1,000 ML IV SCH ×2 (04:41→10:37)
--- NOTE | 2018-12-20 04:45 | NUR ---
PT IS ASLEEP AND RESTING COMFORTABLY IN BED. RN IS CURRENTLY AT BEDSIDE PASSING MEDS.WILL CONTINUE TO MONITOR
--- NOTE | 2018-12-20 05:00 | NUR ---
PT IS ASLEEP AND RESTING COMFORTABLY IN BED. WILL CONTINUE TO MONITOR
--- NOTE | 2018-12-20 05:15 | NUR ---
PT IS ASLEEP AND RESTING COMFORTABLY IN BED. WILL CONTINUE TO MONITOR
--- NOTE | 2018-12-20 05:30 | NUR ---
PT IS ASLEEP AND RESTING COMFORTABLY IN BED. WILL CONTINUE TO MONITOR
--- NOTE | 2018-12-20 05:45 | NUR ---
PT IS ASLEEP AND RESTING COMFORTABLY IN BED. RN AT BEDSIDE PASSING MEDS. WILL CONTINUE TO MONITOR
--- NOTE | 2018-12-20 06:00 | NUR ---
PT IS ASLEEP AND RESTING COMFORTABLY IN BED. WILL CONTINUE TO MONITOR
--- NOTE | 2018-12-20 06:07 | NUR ---
DO NOTES RECEIVED REPORT FROM MANAGER PERIOPERATIVE SITTER WAS INFORMED HE RECEIVED A MEDICATION TO HELP HIM RELAX. PATIENT CURRENTLY SLEEPING IN BED SNORING. NO SIGNS OR SYMPTOMS NOTED.
--- NOTE | 2018-12-20 06:15 | NUR ---
DO NOTES PATIENT SLEEPING ON HIS SIDE. WENT INSIDE ROOM TO INTRODUCE MYSELF AND BROUGHT A SHEET TO COVER UP PATIENT.
--- NOTE | 2018-12-20 06:34 | NUR ---
DO NOTES PATIENT WOKE UP BRIELFY TO URINATE ASSISTED PATIENT WENT URINAL. PATIENT URINATED 550cc OF URINE. WENT BACK TO SLEEP AFTER HE PEED. PATIENT RESTING COMFORTABLY IN BED.
--- NOTE | 2018-12-20 06:45 | NUR ---
DO NOTES PATIENT IN BED ASLEEP SNORING. NO SIGNS OF DISTRESS NOTED.
--- NOTE | 2018-12-20 06:54 | NUR ---
Closing note: Patient is calmly resting in bed. No distress. On room air at this time, tolerating well. IV fluids infusing well to left forearm IV site. All needs met. Safety, fall, contact iso precautions observed. Sitter remained at bedside throughout shift. Hourly rounding done throughout shift. Will endorse care to dayshift RN.
--- NOTE | 2018-12-20 07:00 | NUR ---
DO NOTES PATIENT CURRENTLY SLEEPING NO DISTRESS NOTED. LABS HERE TO DRAW MORNING LABS.
--- NOTE | 2018-12-20 07:16 | NUR ---
DO NOTES PATIENT GOT RESTLESS WHEN LAB ATTEMPTED TO DRAW LABS. REFUSED TO HAVE LABS DRAWN. DAY SHIFT NURSES GIVING REPORT ON PATIENTS CURRENT STATUS. PATIENT TALKING WHILE SLEEPING.
--- NOTE | 2018-12-20 07:30 | NUR ---
RN OPENING NOTE RECEIVED SBAR REPORT FROM ENDORSING RN AT BEDSIDE. PT ON 5150 SI HOLD: DIRECT OBSERVATION IN PLACE. SEE VS FLOW SHEET.
--- NOTE | 2018-12-20 07:30 | NUR ---
DO NOTES PATIENT CURRENTLY SLEEPING IN BED. NO SIGNS OF DISTRESS NOTED.
--- NOTE | 2018-12-20 07:56 | NUR ---
DO NOTES PATIENT AGITATED AFTER RT CAME IN FOR BREATHING TREATMENT.
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
--- NOTE | 2018-12-20 08:01 | NUR ---
DO NOTES SECURITY AND NURSET BEDISDE TO ADMINISTER HALDOL TO CALM PATIENT DOWN. PATIENT WAS WANDED DOWN BY SECURITY AND MEDICATION WORKING.
[2018-12-20] MEDS: HALOPERIDOL LACTATE 5 MG/ML VIAL IM PRN ×3 (08:03→19:04)
--- NOTE | 2018-12-20 08:17 | NUR ---
DO NOTES PATIE NT AT BED SITTING UP AGITATED . AWAKE BUT NOT ALERT.
--- NOTE | 2018-12-20 08:28 | NUR ---
PT RESTING IN BED AND APPEARS TO BE SLEEPING (HE IS SNORING), BUT WAKES EASILY WHEN TOUCHED AND IS AGGRESSIVE TOWARDS RN AND DO. VITALS STABLE WITH NO S/S OF DISTRESS.
--- NOTE | 2018-12-20 08:30 | NUR ---
DO NOTES PATIENT IN BED SLEEPING AND SNORING.
--- NOTE | 2018-12-20 08:30 | NUR ---
Psych placement [facility] phoned the [facility], , and spoke with Feroz. They will call all the facilities that accept patient's insurance this morning to find an open bed. Discharges usually take play about 11am.
[2018-12-20] MEDS: LORazepam 2 MG/ML VIAL IVP PRN (08:40)
[2018-12-20] MEDS: DIPHENHYDRAMINE INJ 50 MG/ML VIAL IM PRN ×2 (08:44→19:04)
--- NOTE | 2018-12-20 08:48 | NUR ---
DO NOTES PATIENT GETTING OUT OF BED AND AGITATED. PATIENT WAS GIVEN ATIVAN BY MANAGER LIFE INSURANCE AND BENADRYL BY ADN. CAM MAKER CAME TO SEE PATIENT.
[2018-12-20] MEDS: ASPIRIN 81 MG TAB.CHEW PO SCH (09:00)
[2018-12-20] MEDS: FUROSEMIDE 20 MG TABLET PO SCH ×2 (09:00→21:00)
[2018-12-20] MEDS: hydrALAZINE HCL 25 MG TABLET PO SCH ×2 (09:00→21:00)
[2018-12-20] MEDS: LISINOPRIL 10 MG TABLET (PRINIVIL) PO SCH (09:00)
[2018-12-20] MEDS: QUEtiapine FUMARATE 100 MG TABLET PO SCH ×2 (09:00→21:00)
[2018-12-20] MEDS: METOPROLOL SUCCINATE 50 MG TAB.SR.24H (TOPROL XL) PO SCH ×2 (09:00→21:00)
[2018-12-20] MEDS: APIXABAN 2.5 MG TABLET PO SCH ×2 (09:00→21:00)
[2018-12-20] MEDS: ISOSORBIDE DINITRATE 10 MG TABLET (ISORDIL) PO SCH (09:00)
[2018-12-20] MEDS: SPIRONOLACTONE 50 MG TABLET (ALDACTONE) PO SCH (09:00)
[2018-12-20] MEDS: MUPIROCIN 2% TOPICAL OINTMENT 22 GM TP SCH ×2 (09:00→21:00)
--- NOTE | 2018-12-20 09:00 | NUR ---
DO NOTES PATIENT SLEEPING IN BED SNORING.
--- NOTE | 2018-12-20 09:02 | NUR ---
pt combative/refused all meds Updated Charge Nurse, will attempt to administer in 30 minutes.
--- NOTE | 2018-12-20 09:17 | NUR ---
DO NOTES PATIENT WAS TRYING TO GET UP. HE IS ALSO TALKING IN HIS SLEEP.
--- NOTE | 2018-12-20 09:30 | NUR ---
PT RESTING IN BED AND APPEARS TO BE SLEEPING, BUT WAKES EASILY WHEN TOUCHED AND IS CONFUSED/AGGRESSIVE TOWARDS DO. NO S/S OF DISTRESS.
--- NOTE | 2018-12-20 09:45 | NUR ---
PT RESTING IN BED AND APPEARS TO BE SLEEPING, BUT WAKES EASILY WHEN TOUCHED AND IS CONFUSED/AGGRESSIVE TOWARDS DO. NO S/S OF DISTRESS.
--- NOTE | 2018-12-20 10:00 | NUR ---
DO NOTES PATIENT IN BED ASLEEP.
--- NOTE | 2018-12-20 10:15 | NUR ---
DO NOTES PATIENT TRYING TO GET OUT OF BED. STATING HE WANTS TO GO HOME.
--- NOTE | 2018-12-20 10:19 | NUR ---
PT note Patient refusing therapy at this time, combative and agitative, nursing present and aware.
--- NOTE | 2018-12-20 10:30 | NUR ---
DO NOTES PATIENT ON RESTRAINTS PUT ON BY NURSE. PATIENT SLEEPING.
--- NOTE | 2018-12-20 10:45 | NUR ---
DO NOTES PATIENT IN BED SLEEPING. KRISHNA NOVAK CAME BY TO SEE PATIENT.
--- NOTE | 2018-12-20 11:00 | NUR ---
DO NOTES PATIENT SLEEPING TALKING IN HIS SLEEP.
--- NOTE | 2018-12-20 11:15 | NUR ---
DO NOTES PATENT TOSSING AND TURNING IN BED. TALKING WHILE HE IS SLEEPING.
[2018-12-20] MEDS ORDERED: DIPHENHYDRAMINE INJ 50 MG/ML VIAL IVP PRN (11:30)
--- NOTE | 2018-12-20 11:30 | NUR ---
DO NOTES PATIENT SLEEPING BUT KICKING SHEETS OFF .
--- NOTE | 2018-12-20 11:32 | NUR ---
Psych placement Phoned [facility] who spoke with Dr Pelaez. The plan remains for patient to be transferred to a psychiatric facility on a 5150 hold as soon as a bed becomes available. Addendum: 12/20/18 at 1326 by Aniya Narayanan LCSW Phoned the [facility] again, . They have phoned all the eligible facilities in the area ([facility] and [facility]) and none have beds available at this time. [facility] [facility] may have a bed later today. Patient's information has been faxed. Addendum: 12/20/18 at 1517 by Aniya Narayanan LCSW Called [facility], , requesting an update on if they will be able to take patient. The nurses are in a meeting. Call back in 45 min. Addendum: 12/20/18 at 1604 by Aniya Narayanan LCSW Called [facility]. They stated they have not received a fax from the call center as stated by Kit earlier. DENNIS phoned the Call Center. They claim they have a fax confirmation but will fax it again immediately. Addendum: 12/20/18 at 1624 by Aniya Narayanan LCSW DENNIS phoned [facility] again and spoke with Julia. She stated that they still have not received the fax but the phone keeps ringing with a fax machine sound. Phoned the Call Center and explained the case to Art and requested better follow up. Spoke with his sewer system supervisor Mariposa. She stated they will fax again and follow up with a phone call to assure the fax was received. Asked her to follow up with the nurses' station at [facility] if a bed becomes available.
[2018-12-20 11:40] VITALS: BP_SYST 132
[2018-12-20] MEDS ORDERED: LORazepam 2 MG/ML VIAL IM PRN (11:45)
--- NOTE | 2018-12-20 11:46 | NUR ---
DO NOTES PATIENT IN BED TALKING AND SNORING WHILE HE SLEEPS IN BED.
[2018-12-20 12:00] VITALS: BP_SYST 132
--- NOTE | 2018-12-20 12:00 | NUR ---
DO NOTES PATIENT SLEEPING IN BED SNORING.
--- NOTE | 2018-12-20 12:00 | NUR ---
PT REMOVED IV BLEEDING CONTROLLED, BUT PT REFUSED TO ALLOW ME TO INSERT A NEW ANGIOCATH. MD AND CHARGE NURSE NOTIFIED.
[2018-12-20] MEDS ORDERED: NS IV PRN (12:15)
[2018-12-20] MEDS ORDERED: DIPHENHYDRAMINE IV PRN (12:15)
--- NOTE | 2018-12-20 12:16 | NUR ---
DO NOTES PATNET SLEEPING IN BED. LAB CAME INTO ROOM TO GET SOME LABS DRAWN.
--- NOTE | 2018-12-20 12:30 | NUR ---
DO NOTES PATIENT IN BED RESTING. OFFERED PATIENT A CUP OF WATER TO DRINK.
--- NOTE | 2018-12-20 12:45 | NUR ---
DO NOTES PATIENT IN BED TALKING WHILE HE SLEEPS.
[2018-12-20 12:51] LABS: BASOPHILS % (AUTO) 0.7 % (0.0-2.0); EOSINOPHILS # (AUTO) 0.1 K/uL (0.0-0.4); EOSINOPHILS % (AUTO) 1.5 % (0.0-4.0); HEMATOCRIT 42.5 % (36-54); HEMOGLOBIN 13.2 g/dL (14.0-18.0); LYMPHOCYTES # (AUTO) 1.4 K/uL (1.0-5.5); LYMPHOCYTES % (AUTO) 25.7 % (20.5-51.5); MEAN CORPUSCULAR HEMOGLOBIN 25 pg (27-31); MEAN CORPUSCULAR HGB CONC 31 % (32-36); MEAN CORPUSCULAR VOLUME 82 fL (79.0-98.0); MONOCYTES # (AUTO) 0.7 K/uL (0.0-1.0); MONOCYTES % (AUTO) 12.7 % (1.7-9.3); NEUTROPHILS # (AUTO) 3.2 K/uL (1.8-7.7); NEUTROPHILS % (AUTO) 59.4 % (40.0-70.0); PLATELET COUNT (AUTO) 257 K/uL (130-430); RED BLOOD CELL COUNT(AUTO) 5.21 MIL/uL (4.2-6.2); RED CELL DISTRIBUTION WIDTH 24.1 % (9.0-15.0); WHITE BLOOD COUNT (AUTO) 5.4 K/uL (4.8-10.8)
[2018-12-20 12:59] LABS: CALCIUM 8.9 mg/dL (8.4-11.0); CREATININE 1.16 mg/dL (0.55-1.30); POTASSIUM 4.1 mmol/L (3.5-5.1)
--- NOTE | 2018-12-20 13:00 | NUR ---
DO NOTES PATIENT SLEEPING WENT INSIDE ROOM TO FIX THE SHEETS ON PATIENT AND TUCKED HIM IN BED.
--- NOTE | 2018-12-20 13:15 | NUR ---
DO NOTES PATIENT IN BED SLEEPING, SNORING AND TALKING WHILE HE SLEEPS.
--- NOTE | 2018-12-20 13:30 | NUR ---
DO NOTES PATIENT IN BED TALKING AND TOSSING AND TURING.
--- NOTE | 2018-12-20 13:45 | NUR ---
DO NOTES PATIENT AGITATED AND YELLING IN BED.
--- NOTE | 2018-12-20 14:00 | NUR ---
DO NOTES PATIENT IN BED TALKING WHILE HE SLEEPS.
--- NOTE | 2018-12-20 14:00 | NUR ---
PT RESTING IN BED AND APPEARS TO BE TALKING IN HIS SLEEP, BUT WAKES EASILY WHEN TOUCHED. PT APPEARS CONFUSED, NO COMPLAINT OF PAIN.
--- NOTE | 2018-12-20 14:15 | NUR ---
PT RESTING IN BED AND APPEARS TO BE TALKING IN HIS SLEEP, BUT WAKES EASILY WHEN TOUCHED. PT APPEARS CONFUSED, NO COMPLAINT OF PAIN.
--- NOTE | 2018-12-20 14:30 | NUR ---
DO NOTES PATIENT IN BED ASLEEP YELLING.
--- NOTE | 2018-12-20 14:45 | NUR ---
DO NOTES PATIENT AGITATED AND URINATED AND I CHANGED THE [place] UNDERNEATH THE PATIENT.
--- NOTE | 2018-12-20 15:00 | NUR ---
DO NOTES PATIENT AGITATED, NURSE GAVE HALDOL AND BENADRYL TO THE PATIENT TO HELP RELAX THE PATIENT.
[2018-12-20] MEDS ORDERED: DIPHENHYDRAMINE INJ 50 MG/ML VIAL ONE (15:07)
--- NOTE | 2018-12-20 15:16 | NUR ---
DO NOTES PUT AN UNDERWEAR ON THE PATIENT NOW HE IS CRYING AND YELLING.
--- NOTE | 2018-12-20 15:30 | NUR ---
DO NOTES PUT A PATIENT IN A GOWN TO COVER HIM UP. PATIENT SLEEPING AND SNORING.
--- NOTE | 2018-12-20 15:39 | NUR ---
ENDORSEMENT SBAR REPORT ENDORSED TO RECEIVING RN AT BEDSIDE. SEE VS FLOW SHEET.
--- NOTE | 2018-12-20 15:40 | NUR ---
report received from Abelardo PINEDA.
--- NOTE | 2018-12-20 15:45 | NUR ---
DO NOTES PATIENT IN BED SLEEPING AND SNORING.
[2018-12-20 15:55] VITALS: BP_SYST 146
--- NOTE | 2018-12-20 16:00 | NUR ---
DO NOTES PATIENT SLEEPING AND SNORING AND TALKING WHILE HE SLEEPS.
--- NOTE | 2018-12-20 16:15 | NUR ---
DO NOTES PATIENT SLEEPING IN BED NO SIGNS OF DISTRESS NOTED. WILL CONTINUE TO MONITOR PATIENT.
--- NOTE | 2018-12-20 16:30 | NUR ---
DO NOTES PATIENT IN BED YELLING AND SCREAMING.
--- NOTE | 2018-12-20 16:45 | NUR ---
DO NOTES PATIENT AGITATED IN BED NURSE WILL ADMINISTER ATIVAN. WILL CONTINUE TO MONITOR.
--- NOTE | 2018-12-20 16:45 | NUR ---
patient agitated prn ativan given, will continue to monitor.
[2018-12-20] MEDS: LORazepam 2 MG/ML VIAL IM PRN ×2 (16:48→20:51)
--- NOTE | 2018-12-20 17:00 | NUR ---
DO NOTES PATIENT IN BED SLEEPING AND SNORING. NO SIGNOS OF DISTRESS NOTED WILL CONTINUE TO MONITOR PATIENT.
--- NOTE | 2018-12-20 17:15 | NUR ---
DO NOTES PATIENT SLEEPING IN BED WILL CONTINUE TO MONITOR PATIENT.
--- NOTE | 2018-12-20 17:30 | NUR ---
DO NOTES PATINET TALKING IN HIS SLEEP. WILL CONTINUE TO MONITOR PATIENT.
--- NOTE | 2018-12-20 17:45 | NUR ---
DO NOTES PATIENT TOSSING AND TURNING IN BED KICKING OFF HIS BED SHEETS. WILL CONTINUE TO MONITOR PATIENT.
[2018-12-20] MEDS: OLANZapine 10 MG TABLET PO SCH (18:00)
--- NOTE | 2018-12-20 18:00 | NUR ---
DO NOTES PATIENT SLEEPING AND YELLING IN BED. WILL CONTINUE TO MONITOR PATIENT.
--- NOTE | 2018-12-20 18:15 | NUR ---
DO NOTES PATIENT SLEEPIMG AND SNORING IN BED. WILL CONTINUE TO MONITOR PATIENT.
--- NOTE | 2018-12-20 18:18 | NUR ---
called [facility] open claims representative told me that the doctor declined the patient and will not be accepting him, I informed the charge nurse.
--- NOTE | 2018-12-20 18:30 | NUR ---
DO NOTES PATIENT IN BED TALKING IN HIS SLEEP. WILL CONTINUE TO MONITOR PATIENT.
--- NOTE | 2018-12-20 18:45 | NUR ---
DO NOTES PATIENT IS PUTTING HIS LEGS OVER THE HANDRAIL. WILL CONTINUE TO MONITOR PATIENT.
--- NOTE | 2018-12-20 18:48 | NUR ---
closing note patient is resting in bed, eyes closed, talking in his sleep, breathing easy and nonlabored, restraints in place, sitter present, will endorse report to noc shift nurse to continue with care and about the prn medications, patient has been refusing po meds, Addis Cowart declined patient and charge nurse is aware.
--- NOTE | 2018-12-20 19:00 | NUR ---
DO NOTES PATIENT TALKING IN HIS SLEEP. WILL CONTINUE TO MONITOR. NURSE WILL GIVE BENADRYL AND HALDOL.
--- NOTE | 2018-12-20 19:00 | NUR ---
Initial note: Received report from daysarft nurse MIRIAM Brady. CLAIRE Chase/ present at bedside as sitter. Patient is awake in bed, tolerating room air. He is restless, yelling, and placing his legs over the side rails. Bilateral soft wrist restraints in place as ordered. No IV site present, doctors are aware. This RN to assist dayshift RN in administering PRN Benadryl IM and PRN Haldol IM for agitation. Patient is on a 5150 hold, direct observation in place, this RN to remain at bedside as 1:1 sitter. Bed locked in lowest position, side rails raised, bed alarm on, room is free from clutter. 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 Will continue with plan of care.
--- NOTE | 2018-12-20 19:15 | NUR ---
Agitation: PRN Benadryl IM and PRN Haldol IM administered by dayshift RN, this RN assisted in medication administration. Patient is still restless. Safety, fall, contact isolation precautions in place. Will continue to monitor.
--- NOTE | 2018-12-20 19:30 | NUR ---
Direct observation: Patient is in and out of sleep, moving his legs around in bed and occasionally talking. No acute distress. Safety, fall, contact isolation precautions in place. Will continue to monitor.
--- NOTE | 2018-12-20 19:45 | NUR ---
Direct observation: Patient is attempting to sit up in bed. He is moving his legs around and occasionally places his legs over the side rails. This RN instructed patient to keep his legs in bed, patient followed commands. Safety, fall, contact isolation precautions in place. Will continue to monitor.
[2018-12-20 20:00] VITALS: BP_SYST 142
--- NOTE | 2018-12-20 20:00 | NUR ---
Direct observation: Patient is in bed, still restless. Needs to be constantly reminded to keep his legs in bed. No acute distress otherwise. Safety, fall, contact isolation precautions in place. Will continue to monitor.
--- NOTE | 2018-12-20 20:15 | NUR ---
Direct observation: RT at bedside applying mask for breathing treatment. Patient is restless, shaking his head, attempting to remove mask. Mask placed back on patient. Safety, fall, contact isolation precautions in place. Will continue to monitor.
--- NOTE | 2018-12-20 20:30 | NUR ---
Direct observation: Patient is yelling and moving his legs around in bed, still attempting to sit up. Safety, fall, contact isolation precautions in place. Will continue to monitor.
--- NOTE | 2018-12-20 20:45 | NUR ---
Direct observation: Patient is yelling and placing legs over side rails. Instructed patient to keep legs in bed, but patient is not following commands. Safety, fall, contact isolation precautions in place. Will continue to monitor.
--- NOTE | 2018-12-20 21:00 | NUR ---
Agitation: PRN Ativan IM administered for agitation. Patient was yelling and placing his legs over the side rails. Patient is in and out of sleep following administration, but is still restless when awake. Safety, fall, contact isolation precautions in place. Will continue to monitor.
--- NOTE | 2018-12-20 21:15 | NUR ---
Direct observation: Attempted to administer scheduled medications, patient refused. He is awake with garbled speech, kicking in bed. No acute distress otherwise. Safety, fall, contact iso precautions in place. Will continue to monitor.
--- NOTE | 2018-12-20 21:30 | NUR ---
Direct observation: Patient is restless and yelling. No acute distress. Safety, fall, contact iso precautions in place. Will continue to monitor.
--- NOTE | 2018-12-20 21:45 | NUR ---
Direct observation: Patient is still restless. He was yelling and placed his left leg over the side rail. This RN asked patient to lower his voice and keep his legs in bed, patient complied. No acute distress. Safety, fall, contact iso precautions in place. Will continue to monitor.
--- NOTE | 2018-12-20 22:00 | NUR ---
Direct observation: Attempted to administer scheduled medications again, patient is still uncooperative. No acute distress. Tolerating room air. Safety, fall, contact iso precautions in place. Will continue to monitor.
--- NOTE | 2018-12-20 22:15 | NUR ---
Direct observation: Patient is in and out of sleep, occasionally lifts his legs in bed. Safety, fall, contact isolation precautions in place. Will continue to monitor patient.
--- NOTE | 2018-12-20 22:30 | NUR ---
Direct observation: Patient is resting in bed, no distress noted. Tolerating room air. Safety, fall, contact isolation precautions in place. Will continue to monitor patient.
--- NOTE | 2018-12-20 22:45 | NUR ---
Direct observation: Patient is awake, talking to himself, speech is garbled. Patient still moves his legs around in bed. Safety, fall, contact iso precautions in place. Will continue to monitor.
--- NOTE | 2018-12-20 23:00 | NUR ---
Direct observation: Patient is restless, moves his legs around in bed. Occasionally talks to himself. Safety, fall, contact iso precautions in place. Will continue to monitor.
--- NOTE | 2018-12-20 23:15 | NUR ---
Direct observation: Patient is laying in bed and lifting is legs. No acute distress. Safety, fall, contact isolation precautions in place. Will continue to monitor patient.
--- NOTE | 2018-12-20 23:30 | NUR ---
Direct observation: Patient placed his legs over the side rails, was instructed by this RN to keep his legs in bed, patient complied. Safety, fall, contact isolation precautions in place. Will continue to monitor patient.
--- NOTE | 2018-12-20 23:45 | NUR ---
Direct observation: Patient is still restless, kicking his legs in bed. Safety, fall, contact iso precautions in place. Will continue to monitor.
--- NOTE | 2018-12-21 | NUR ---
Direct observation: Patient is in and out of sleep, moves his legs over the side rails occasionally. Patient was reminded to keep legs in bed, patient complied. Safety, fall, contact iso precautions in place. Will continue to monitor.
--- NOTE | 2018-12-21 00:15 | NUR ---
Direct observation: Patient is awake and restless, moves his legs around in bed. Does not show any acute distress. Tolerating room air. Safety, fall, contact isolation precautions in place. Will continue to monitor patient.
--- NOTE | 2018-12-21 00:30 | NUR ---
Direct observation: RT at bedside to administer scheduled breathing treatment. Patient is attempting to removing breathing treatment mask by shaking his head. Ensured mask was applied throughout duration of breathing treatment. Safety, fall, contact iso precautions in place. Will continue to monitor.
--- NOTE | 2018-12-21 00:45 | NUR ---
Direct observation: Patient is restless, moving his legs around in bed. No acute distress otherwise. Tolerating room air. Safety, fall, contact iso precautions in place. Will continue to monitor.
[2018-12-21] MEDS: IPRATROPIUM/ALBUTEROL SULFATE 3 ML AMPUL.NEB (DUONEB) INH SCH ×3 (00:48→19:54)
--- NOTE | 2018-12-21 01:00 | NUR ---
Direct observation: Patient is kicking his legs up and yelling. Patient was instructed by this RN to calm down, environmental stimuli was decreased, but patient is still agitated. Safety, fall, contact iso precautions in place. Will continue to monitor.
[2018-12-21] MEDS: HALOPERIDOL LACTATE 5 MG/ML VIAL IM PRN ×4 (01:13→19:40)
[2018-12-21] MEDS: LORazepam 2 MG/ML VIAL IM PRN ×4 (01:14→19:40)
[2018-12-21] MEDS: DIPHENHYDRAMINE INJ 50 MG/ML VIAL IM PRN ×4 (01:14→19:41)
[2018-12-21 01:15] VITALS: BP_SYST 131
--- NOTE | 2018-12-21 01:15 | NUR ---
Agitation: Patient is yelling and lifting his legs over the side rails. PRN Ativan IM, PRN Benadryl IM, and PRN Haldol IM administered for agitation. Safety, fall, contact iso precautions in place. Will continue to monitor.
--- NOTE | 2018-12-21 01:30 | NUR ---
BiPAP on: RT at bedside to apply BiPAP for the night. Patient tolerating well, SaO2 = 97%. Does not appear agitated after administration of PRN medications. Safety, fall, contact iso precautions in place. Will continue to monitor.
--- NOTE | 2018-12-21 01:45 | NUR ---
Direct observation: Patient is calmly resting in bed, no distress. Tolerating BiPAP. Safety, fall, contact iso precautions in place. Will continue to monitor.
--- NOTE | 2018-12-21 02:00 | NUR ---
Direct observation: Patient is sleeping. No acute distress, tolerating BiPAP. Safety, fall, contact iso precautions in place. Will continue to monitor.
--- NOTE | 2018-12-21 02:15 | NUR ---
Direct observation: Patient is asleep, BiPAP in place. No acute distress. Safety, fall, contact isolation precautions in place. Will continue to monitor patient.
--- NOTE | 2018-12-21 02:30 | NUR ---
Direct observation: Patient asleep, no acute distress. Even and unlabored breathing on BiPAP. Patient occasionally moves his legs around while he's asleep. Safety, fall, contact isolation precautions in place. Will continue to monitor patient.
--- NOTE | 2018-12-21 02:45 | NUR ---
Direct observation: Patient is resting calmly in bed. No acute distress noted. Tolerating BiPAP. Safety, fall, contact isolation precautions in place. Will continue to monitor patient.
--- NOTE | 2018-12-21 03:00 | NUR ---
PT LYING ON BED CLOSING HIS AND EVERY TIME HE MOVE HIS AGITATED.WILL CONTINUE OF MONITORING.
--- NOTE | 2018-12-21 03:15 | NUR ---
PT LYING ON BED CLOSING HIS EYES BUT STILL RESTLESS.WILL CONTINUE OF MONITORING.
--- NOTE | 2018-12-21 03:30 | NUR ---
Direct observation: Patient is laying in bed with eyes closed, flexes and extends both legs occasionally. BiPAP in place. Safety, fall, contact isolation precautions in place. Will continue to monitor patient.
--- NOTE | 2018-12-21 03:45 | NUR ---
Direct observation: Patient in bed, laying with eyes closed, moves legs around in bed. BiPAP in place, tolerating well. Safety, fall, contact isolation precautions in place. Will continue to monitor patient.
--- NOTE | 2018-12-21 04:00 | NUR ---
Direct observation: Patient is calmly laying in bed. Does not show any signs or symptoms of acute distress. Tolerating BiPAP well. Safety, fall, contact isolation precautions in place. Will continue to monitor patient.
--- NOTE | 2018-12-21 04:15 | NUR ---
Direct observation: [employer] at bedside drawing blood at this time. Patient tolerated well. Safety, fall, contact isolation precautions in place. Will continue to monitor patient.
--- NOTE | 2018-12-21 04:30 | NUR ---
Direct observation: Patient is sleeping, moving legs around in bed. Does not appear agitated at this time. Safety, fall, contact isolation precautions in place. Will continue to monitor patient.
--- NOTE | 2018-12-21 04:45 | NUR ---
Direct observation: Patient is asleep, appears restless. BiPAP mask in place, tolerating well. Safety, fall, contact isolation precautions in place. Will continue to monitor patient.
[2018-12-21 04:59] LABS: ALBUMIN 2.7 g/dL (3.4-4.8); CALCIUM 9.3 mg/dL (8.4-11.0); CREATININE 1.07 mg/dL (0.55-1.30); POTASSIUM 3.8 mmol/L (3.5-5.1)
--- NOTE | 2018-12-21 05:00 | NUR ---
Direct observation: Patient is calmly resting in bed. BiPAP in place. Safety, fall, contact isolation precautions in place. Will continue to monitor patient.
--- NOTE | 2018-12-21 05:15 | NUR ---
Direct observation: Patient is sleeping. No distress noted. BiPAP in place, patient tolerating well. Safety, fall, contact isolation precautions in place. Will continue to monitor patient.
--- NOTE | 2018-12-21 05:30 | NUR ---
Direct observation: Patient asleep in bed. Tolerating BiPAP. No acute distress. Safety, fall, contact isolation precautions in place. Will continue to monitor patient.
--- NOTE | 2018-12-21 05:45 | NUR ---
Incontinence care: Patient is incontinent of GI/. Assisted AlysanJUNOA in rendering incontinence care and complete linen change. Patient was not combative, but became agitated. Safety, fall, contact isolation precautions in place. Will continue to monitor patient.
--- NOTE | 2018-12-21 06:00 | NUR ---
BiPAP off: BiPAP is off, patient started yelling and vigorously shook his head when this RN attempted to place mask on patient after incontinence care. He is in and out of sleep, kicks his legs up while awake. Safety, fall, contact iso precautions in place. Will continue monitoring.
[2018-12-21 06:13] LABS: BASOPHILS # (AUTO) 0.1 K/uL (0.0-0.2); BASOPHILS % (AUTO) 1.4 % (0.0-2.0); EOSINOPHILS # (AUTO) 0.1 K/uL (0.0-0.4); HEMATOCRIT 39.3 % (36-54); HEMOGLOBIN 12.6 g/dL (14.0-18.0); LYMPHOCYTES # (AUTO) 1.1 K/uL (1.0-5.5); LYMPHOCYTES % (AUTO) 24.1 % (20.5-51.5); MEAN CORPUSCULAR HEMOGLOBIN 26 pg (27-31); MEAN CORPUSCULAR HGB CONC 32 % (32-36); MEAN CORPUSCULAR VOLUME 80 fL (79.0-98.0); MONOCYTES # (AUTO) 0.7 K/uL (0.0-1.0); MONOCYTES % (AUTO) 14.9 % (1.7-9.3); NEUTROPHILS # (AUTO) 2.6 K/uL (1.8-7.7); NEUTROPHILS % (AUTO) 57.6 % (40.0-70.0); PLATELET COUNT (AUTO) 223 K/uL (130-430); RED CELL DISTRIBUTION WIDTH 24.3 % (9.0-15.0); WHITE BLOOD COUNT (AUTO) 4.5 K/uL (4.8-10.8)
--- NOTE | 2018-12-21 06:15 | NUR ---
Direct observation: Patient is yelling, placing his legs over the side rails. This RN asked patient to place legs back in bed, patient complied. Safety, fall, contact iso precautions in place. Will continue monitoring.
--- NOTE | 2018-12-21 06:30 | NUR ---
Direct observation: Patient is yelling, kicking his legs and placing them over the side rails. Patient put his legs back in bed after this RN instructed patient to do so. Safety, fall, contact iso precautions in place. Will continue monitoring.
--- NOTE | 2018-12-21 06:45 | NUR ---
Direct observation: Patient is yelling and lifting his legs up in bed. Safety, fall, contact iso precautions in place. Will continue monitoring.
--- NOTE | 2018-12-21 06:48 | NUR ---
Nutrition Update Rich Scale 16 noted. Pt admitted for chest pain Diet: 2gm Na BMI: 39.7 kg/m2 RD to follow per nutrition care standards.
--- NOTE | 2018-12-21 07:00 | NUR ---
Direct observation: Patient continues to yell and place his legs over the side rails. Safety, fall, contact iso precautions in place. Will continue monitoring.
--- NOTE | 2018-12-21 07:11 | NUR ---
Closing note: Patient is yelling, kicking his legs in bed and placing them over the side rails. Tolerating room air. Bilateral soft wrist restraints in place as ordered. No IV site present, doctors are aware. Patient is on a 5150 hold, direct observation in place, this RN remained at bedside as 1:1 sitter throughout shift. All needs met. Bed locked in lowest position, side rails raised, bed alarm on, room is free from clutter. Safety, fall, contact isolation precautions observed. Care endorsed to MIRIAM Cueto.
--- NOTE | 2018-12-21 07:15 | NUR ---
Patient is mumbling with he is kicking the rails. His legs are placed back in bed, and he is asked if he needs anything. Haldol,Benadryl, and Ativan are given IM per order. Will continue to assess.
--- NOTE | 2018-12-21 07:31 | NUR ---
Patient is still restless, as he is still kicking his legs and tries to get out. Circulation to the distal limbs is checked.
--- NOTE | 2018-12-21 07:45 | NUR ---
Patient is offered breakfast, but he refuses despite explanation of the RN. Patient remains uncooperative.
[2018-12-21 08:00] VITALS: BP_SYST 114
--- NOTE | 2018-12-21 08:00 | NUR ---
DIRECT OBSERVATION: Patient is calmer, but has periods of agitation.
--- NOTE | 2018-12-21 08:15 | NUR ---
Patient is resting at this time, but with periods of agitation
--- NOTE | 2018-12-21 08:16 | NUR ---
Working on psych placement Phoned [facility], , and spoke with Art. Notified him that we are still awaiting placement for patient and that [facility] denied patient last night. Addendum: 12/21/18 at 1156 by Aniya Narayanan LCSW Sherry from the Call Center called about 11:30 asking if patient had gone to [facility]. DENNIS told her that Art at the Call Center was notified about three hours ago that patient was denied at [place] and still needed placement today.
--- NOTE | 2018-12-21 08:30 | NUR ---
Patient refuses breakfast and meds. He spitted out the breakfast when RN attempts to feed him, and scream "no" when asked if he is okay with taken morning meds.
--- NOTE | 2018-12-21 08:45 | NUR ---
Patient is resting, with occasionally restless and agitation. Contact isolation, fall and safety precautions remain in place. Will continue to monitor.
[2018-12-21] MEDS: ISOSORBIDE DINITRATE 10 MG TABLET (ISORDIL) PO SCH (09:00)
[2018-12-21] MEDS: LISINOPRIL 10 MG TABLET (PRINIVIL) PO SCH (09:00)
[2018-12-21] MEDS: APIXABAN 2.5 MG TABLET PO SCH ×2 (09:00→21:00)
[2018-12-21] MEDS: SPIRONOLACTONE 50 MG TABLET (ALDACTONE) PO SCH (09:00)
[2018-12-21] MEDS: ASPIRIN 81 MG TAB.CHEW PO SCH (09:00)
[2018-12-21] MEDS: METOPROLOL SUCCINATE 50 MG TAB.SR.24H (TOPROL XL) PO SCH ×2 (09:00→21:00)
[2018-12-21] MEDS: hydrALAZINE HCL 25 MG TABLET PO SCH ×2 (09:00→21:00)
[2018-12-21] MEDS: FUROSEMIDE 20 MG TABLET PO SCH ×2 (09:00→21:00)
[2018-12-21] MEDS: QUEtiapine FUMARATE 100 MG TABLET PO SCH ×2 (09:00→21:51)
--- NOTE | 2018-12-21 09:00 | NUR ---
DIRECT OBSERVATION: PATIENT IS AT REST. RESTRAINTS, CONTACT ISO, SAFETY PRECAUTIONS REMAIN ON.
--- NOTE | 2018-12-21 09:15 | NUR ---
DIRECT OBSERVATION: PATIENT REMAINS RESTLESS AT TIMES. HIS , MICHAEL, CALLS IN AND INQUIRES HIS SITUATION. SHE DEMANDS TO SPEAK WITH THE PSYCHIATRIST. DR. LANGSTON IS PAGED.
--- NOTE | 2018-12-21 09:30 | NUR ---
PATIENT IS INCONTINENT ON URINATION. CLEANED AND CHANGED FOR COMFORT.
--- NOTE | 2018-12-21 09:45 | NUR ---
PATIENT IS RESTING, NO SIGNS OF DISTRESS NOTED.
--- NOTE | 2018-12-21 10:00 | NUR ---
PATIENT IS AT REST, WITH OCCASIONALLY AGITATION IS NOTED.
[2018-12-21] MEDS: MUPIROCIN 2% TOPICAL OINTMENT 22 GM TP SCH ×2 (10:07→16:43)
--- NOTE | 2018-12-21 10:15 | NUR ---
DR. KEARNS IS AT BEDSIDE. ORDER IS GIVEN.
--- NOTE | 2018-12-21 10:30 | NUR ---
PATIENT IS RESTING, NO SIGNS OF DISTRESS NOTED.
--- NOTE | 2018-12-21 10:42 | NUR ---
PT note Patient refusing therapy today; uncooperative, nursing aware.
--- NOTE | 2018-12-21 10:45 | NUR ---
PATIENT ATTEMPTS TO GET OUT OF BED DESPITE INSTRUCTION, BUT AT THE SAME TIME REFUSES PT.
--- NOTE | 2018-12-21 11:00 | NUR ---
PATIENT IS RESTING, BUT WITH OCCASIONAL AGITATION. NO SIGNS OF DISTRESS NOTED. SAFETY, CONTACT ISO, IS IN PLACE.
--- NOTE | 2018-12-21 11:15 | NUR ---
PATIENT IS AT REST, STILL ATTEMPT NO SIGNS OF DISTRESS NOTED.
--- NOTE | 2018-12-21 11:30 | NUR ---
PATIENT IS ATTEMPTING TO GET OUT OF BED; RN EXPLAINS THAT HE MUST STAY IN BED FOR HIS SAFETY.
[2018-12-21 12:00] VITALS: BP_SYST 132
--- NOTE | 2018-12-21 12:14 | NUR ---
PATIENT IS SLEEPING, NO SIGNS OF DISTRESS NOTED.
--- NOTE | 2018-12-21 12:30 | NUR ---
PATIENT WAS FED LUNCH, BUT REFUSED AND SPAT AT RN. RN INSTRUCTED PATIENT NOT TO DO THAT AGAIN, BUT PATIENT CONTINUED TO SCREAM AT RN. PATIENT IS WILLING TO DRINK HOWEVER.
--- NOTE | 2018-12-21 12:45 | NUR ---
PATIENT FALLS BACK TO SLEEP, BUT WITH OCCASIONAL BURSTS OF AGITATION. SITTER REMAINS AT BEDSIDE.
--- NOTE | 2018-12-21 13:00 | NUR ---
PATIENT IS RESTING, NO SIGN OF DISTRESS NOTED. SITTER AT BEDSIDE. CONTACT, SAFEFTY/FALL PRECAUTIONS ARE MAINTAINED.
--- NOTE | 2018-12-21 13:15 | NUR ---
DR. WALLACE IS AT BEDSIDE ASSESSING PATIENT.
--- NOTE | 2018-12-21 13:27 | NUR ---
Discharge Planning to [facility] facility: Sherry from the Call Center, , faxed the following information: [facility]wait list [facility] list [facility]fax [facility] [place]-no answer, left [facility]-no answer, [facility] Per [facility], not able to medically manage [facility]-no beds [place]-[facility]/w [facility], previously denied. Not able to medically manage. [facility]-no beds Addendum: 12/21/18 at 1336 by Aniya Narayanan LCSW Phoned Sherry. She believes that [facility] is the best chance. They may have beds available soon. She will call and follow up. Addendum: 12/21/18 at 1506 by Aniya Narayanan LCSW Spoke with Lorraine WILLS. She requested patient's information be faxed to [facility] for evaluation for admission under contract. Faxed and called Ruby to notify her of incoming fax. p [phone] f [phone]. Received a call from Sherry at the Call Center. [facility] did not have beds available. She will continue to work on placement. Addendum: 12/21/18 at 1607 by Aniya Narayanan LCSW Phoned Elidia at [facility]. They received the fax and are reviewing. They will call about 4:20 pm. Awaiting call back from Sherry at the Call Center Addendum: 12/21/18 at 1616 by Aniya Narayanan LCSW Phoned Sherry at the Call Center. She has been unable to find placement but is still working on it.
--- NOTE | 2018-12-21 13:30 | NUR ---
PATIENT IS RESTING, BUT WITH SPURTS OF AGITATION. SITTER AT BEDSIDE.
--- NOTE | 2018-12-21 13:45 | NUR ---
PATIENT APPEARS TO BE RESTLESS IN THE BED. SITTER AT BEDSIDE. WILL MONITOR CLOSELY FOR FURTHER AGITATION.
--- NOTE | 2018-12-21 14:00 | NUR ---
PATIENT IS AGITATED AND SCREAMING. HALDOL, ATIVAN, AND BENADRYL IS GIVEN IM. WILL REASSESS.
--- NOTE | 2018-12-21 14:15 | NUR ---
PATIENT IS MUMBLING AND OCCASIONALLY SCREAMING; STILL TRY TO GET OUT OF BED, BUT SEEMS SOMEWHAT LESS AGITATED.
--- NOTE | 2018-12-21 14:30 | NUR ---
PATIENT IS SNORING AT THIS TIME. NO SIGNS OF DISTRESS NOTED.
--- NOTE | 2018-12-21 14:45 | NUR ---
PATIENT IS AT REST, NO SIGNS OF DISTRESS NOTED.
--- NOTE | 2018-12-21 15:00 | NUR ---
Patient snoring in bed with eyes closed, flexes arms and legs at times. Safety, fall, contact isolation precautions in place. Will continue to monitor patient.
--- NOTE | 2018-12-21 15:15 | NUR ---
PATIENT SNORING WITH HIS EYES CLOSED, BREATHING EVEN AND UNLABORED, CHEST FALLING AND RISING SYMMETRICALLY. PATIENT OCCASIONALLY FIDGETS HIS ARMS AND LEGS.
--- NOTE | 2018-12-21 15:30 | NUR ---
PATIENT IS RESTING, CHEST RISING AND FALLING SYMMETRICALLY. SAFETY/FALL AND CONTACT ISO IN PLACE.
--- NOTE | 2018-12-21 15:45 | NUR ---
PATIENT IS SLEEPING, CHEST RISING AND FALLING SYMMETRICALLY, NO SIGNS OF DISTRESS NOTED.
[2018-12-21 16:00] VITALS: BP_SYST 139
--- NOTE | 2018-12-21 16:00 | NUR ---
PATIENT SNORING WITH HIS EYES CLOSED, BREATHING EVEN AND UNLABORED, CHEST FALLING AND RISING SYMMETRICALLY. PATIENT OCCASIONALLY FLEXES AND EXTENDS HIS ARMS AND LEGS.
--- NOTE | 2018-12-21 16:15 | NUR ---
PATIENT IS OFF RESTRAINTS AT THIS TIME; HE REMAINS SLEEPING.
--- NOTE | 2018-12-21 16:30 | NUR ---
PATIENT IS RESTING, NO SIGNS OF DISTRESS NOTED.
--- NOTE | 2018-12-21 16:35 | NUR ---
Psych Placement Planning Nicolasa from [facility] stated that they will accept patient under contract approved by Lorraine WILLS, once patient has been off restraints for four hours. [facility] p [phone] f [phone]. [facility] will continue to work on placement. Please call them if patient goes to [facility]. [facility] p [phone] f [phone]. If patient goes, please use a contracted ambulance. [facility] p [phone] (please fill out attached form) Medic-5 Packet placed at nurses' station. Discussed with Lissy RN, Melanie RN, Rom RN.
--- NOTE | 2018-12-21 16:45 | NUR ---
PATIENT IS AT REST, NO SIGNS OF DISTRESS NOTED.
--- NOTE | 2018-12-21 17:00 | NUR ---
OLIVE, PATIENT'S , IS AT BEDSIDE. POC IS EXPLAINED.
--- NOTE | 2018-12-21 17:15 | NUR ---
PATIENT IS INCONTINENT. HE IS CLEANED AND REPOSITIONED FOR COMFORT.
--- NOTE | 2018-12-21 17:30 | NUR ---
PATIENT IS WILLING TO TAKE ZYPREXA WITH RN'S AND 'S ENCOURAGEMENT. NO SIGNS OF ASPIRATION NOTED.
[2018-12-21] MEDS: OLANZapine 10 MG TABLET PO SCH (17:37)
--- NOTE | 2018-12-21 17:45 | NUR ---
PATIENT IS RESTING, NO SIGNS OF DISTRESS NOTED.
--- NOTE | 2018-12-21 18:00 | NUR ---
PATIENT IS FED BY HIS OLIVE, WITH SUPERVISION OF RN. NO SIGNS OF ASPIRATION NOTED.
--- NOTE | 2018-12-21 18:15 | NUR ---
DR. TOTH IS AT BEDSIDE ASSESSING PATIENT. PATIENT IS RESTING, CHEST FALLING AND RISING EVENLY.
--- NOTE | 2018-12-21 18:30 | NUR ---
PATIENT'S SLEEPING ON A RECLINED POSITION, CHEST RISING AND FALLING SYMMETRICALLY. WILL CONTINUE TO MONITOR.
--- NOTE | 2018-12-21 18:45 | NUR ---
PATIENT IS RESTING, CHEST RISING AND FALLING EVENLY. NO SIGNS OF DISTRESS NOTED. ALL NEEDS MET. WILL DELEGATE TO NEXT SHIFT.
[2018-12-21 19:00] VITALS: BP_SYST 140
--- NOTE | 2018-12-21 19:00 | NUR ---
change of shift..i have assumed the care of the pt.pt.presents quiescent affect;calm,somnolent. general status stable.respiratory status stable.@room air;unlabored.pt.possible transfer to [facility]:12/21/18.
--- NOTE | 2018-12-21 19:00 | NUR ---
REPORT GIVEN TO PPAO.
--- NOTE | 2018-12-21 19:15 | NUR ---
pt.assessed.pt.presents quiescent affect;calm,somnolent.pt.capable to reposition self.general status stable. respiratory status stable;unlabored.
[2018-12-21] MEDS ORDERED: OLAN10TA3 PO (19:17)
[2018-12-21] MEDS ORDERED: SER100 PO (19:18)
--- NOTE | 2018-12-21 19:30 | NUR ---
pt.presents awakening status.i have adjusted the bed;flat position.pt.has adjusted body habitus to flattened bed position.
--- NOTE | 2018-12-21 19:45 | NUR ---
pt's affect;restless.i have administered ativan;2mg im,benadryl:50mg im,haldol;5mg im. to re-assess the pt's affect.
[2018-12-21 20:00] VITALS: BP_SYST 140
--- NOTE | 2018-12-21 20:00 | NUR ---
rt has completed hhn-treatment.pt's affect;decreased restlessness.remains in bed.general status stable. respiratory status stable;02-sat%=96%.
--- NOTE | 2018-12-21 20:15 | NUR ---
pt's affect;has become calm,pt.will reposition self.remains in bed.general status stable.respiratory status stable;unlabored.
--- NOTE | 2018-12-21 20:30 | NUR ---
pt.presents affect;calm/somnolent.pt.occasionally repositions self.general status stable.respiratory status stable; unlabored.
--- NOTE | 2018-12-21 20:45 | NUR ---
pt.presented affect;restless;security paged assisted the nsg to reposition pt.in bed.pt.presents slurred speech.i have inquired if the the pt. presents requests;water;pt.attempted to verbalized;slurred.i inquired if the pt.requires assistance;restroom;pt.attempted to verbalized;slurred.pt.repositioned in bed.pt.resting.
--- NOTE | 2018-12-21 21:00 | NUR ---
pt.repositioned in bed.pt.affect;calmer.general status stable.respiratory status stable.unlabored.
--- NOTE | 2018-12-21 21:10 | NUR ---
Mendoza Pelaez s/w Guadalupe
--- NOTE | 2018-12-21 21:15 | NUR ---
pt.assessed.pt.presents affect.slight.restlessness. has arrived.pt.remains in bed.loc:confused. attempts to transfer pt.[facility] in progress;i have spoken to lynn kumar:don:[facility].editajosé has apprised me that th pt.will require medical clearance per attending md. dr.hakak palomino.
--- NOTE | 2018-12-21 21:30 | NUR ---
pt.presents affect;restless. capable to calm pt.attempts to feed pt.to no avail;pt.spits trial food;pudding. i am to hold the 2100p medications.
--- NOTE | 2018-12-21 21:40 | NUR ---
Second call for Dr. Pelaez s/diamante Reese
--- NOTE | 2018-12-21 21:45 | NUR ---
has returned the page.i have apprised that he is to medically clear pt.for transfer per lynn kumar;jay simon. has ordered medically cleared for transfer.
--- NOTE | 2018-12-21 21:51 | NUR ---
Received a call from Dr. Pelaez: Received a call from Dr. Pelaez and he stated that patient is medically clear to transfer to Psychiatry unit and to transfer patient SADIA. Made primary RN aware.
--- NOTE | 2018-12-21 22:00 | NUR ---
pt.assessed.pt.'s has calmed pt.pt.quiescent;calm,general status stable.respiratory status stable;unlabored. i have telephoned [facility];i am apprise they are busy.the hospital staff to call [facility];for pt's report.i have conveyed the info the elin;rn/chg.
--- NOTE | 2018-12-21 22:15 | NUR ---
pt.presents quiescent affect;calm,somnolent. present has assisted to calm pt.pt had recognized his . seroquel administered other 2100p medications are held.
--- NOTE | 2018-12-21 22:30 | NUR ---
pt.presents quiescent affect;calm,somnolent. present.genral stsu stale./respira[try stsu sta le: 02-mon%=96%.pt.capable to reposition self.
--- NOTE | 2018-12-21 22:45 | NUR ---
pt.assessed.pt.presents quiescent affect;calm,somnolent.general status stable.respiratory status stable.hob: elevated 45-degrees.i have telephoned [facility] to provide the pt's information.i have been apprised the [facility] staff to receive person to person report is busy;i may return the call w/in 30mins.i have apprised elin;akvon/romelia.elin has apprised heather;store warehouse associate.
--- NOTE | 2018-12-21 23:00 | NUR ---
pt.presents quiescent affect;calm,somnolent.i have apprised the pt's of the situation re;pt's transfer;[facility] busy cannot receive the pt's report @this hour. has l;eft the hospital.pt's general status stale.respiratory status stable
--- NOTE | 2018-12-21 23:15 | NUR ---
pt.assessed.pt.presents quiescent affect;r/t has assessed the o2-sat%=98%@room air. bi-pap not utilizes.general status stable.respiratory status stable.pt.capable to reposition self.
--- NOTE | 2018-12-21 23:30 | NUR ---
pt.assessed.pt.presents quiescent affect;calm,somnolent.general status stable.respiratory status stable.; pt.capable to reposition self.i have telephoned [facility];hospital staff;andres,stated the pt.is overwhelming unstable to be received tonight.the staff was not apprised of the pt's transfer.[facility] to review the pt's case in the am;12/22/18.cortney;kavon/packing house laborer is apprised. to be paged to be apprised of the pt's transfer status;situation.
--- NOTE | 2018-12-21 23:45 | NUR ---
pt.assessed.pt.presents quiescent affect;calm,somnolent.general status stable.respiratory status stable. unlabored.pt.capable to reposition self.
[2018-12-22] VITALS: BP_SYST 135
--- NOTE | 2018-12-22 | NUR ---
pt.assessed.pt.presents quiescent affect;calm,somnolent.general status stable.respiratory status stable; o-2-sat%=96%.pt.capable to reposition self. Addendum: 12/22/18 at 0113 by Landry Stoner RN v/s assessed;values w/in normal limits.o2-sat%=96%@room air. pt's telephoned the unit.i have apprised her that i have conferred w/the [facility].i was apprised that the [facility] staff could not accommodate the pt.robert;12/21/18. that [facility] [place] call in am;12/22/18.pt.to be transferred tomorrow;12/22/18.[facility].
--- NOTE | 2018-12-22 00:15 | NUR ---
pt.assessed pt.presents quiescent affect;calm,somnolent.general status stable.respiratory status stable. pt.cable to reposition self.
--- NOTE | 2018-12-22 00:30 | NUR ---
pt.assessed.pt.presents quiescent affect;calm,somnolent.general status stable.respiratory status stable. pt.capable to reposition self.
--- NOTE | 2018-12-22 00:45 | NUR ---
pt.assessed.pt.presents quiescent affect;calm,somnolent.general status stable.respiratory status stable. pt.capable to reposition self.
[2018-12-22] MEDS: IPRATROPIUM/ALBUTEROL SULFATE 3 ML AMPUL.NEB (DUONEB) INH SCH ×4 (00:55→19:33)
--- NOTE | 2018-12-22 01:00 | NUR ---
pt.assessed.pt.presents quiescent affect;calm,somnolent.general status stable.respiratory status stable. pt.capable to reposition self.
--- NOTE | 2018-12-22 01:15 | NUR ---
pt.presents quiescent affect;calm,somnolent.general status stable.respiratory status stable. pt.capable to reposition self.
--- NOTE | 2018-12-22 01:30 | NUR ---
pt.assessed.pt.presents quiescent affect;calm,somnolent.general status stable.respiratory status stable. pt.capable to reposition self.
--- NOTE | 2018-12-22 01:45 | NUR ---
pt.assessed.pt.presents quiescent affect;calm,somnolent.general status stable.respiratory status stable, pt.capable to reposition self.
--- NOTE | 2018-12-22 02:00 | NUR ---
pt.assessed.pt.presents quiescent affect;calm,somnolent.general status stable.respiratory status stable. pt.capable to reposition self.
--- NOTE | 2018-12-22 02:15 | NUR ---
pt.assessed.pt.presents quiescent affect;calm,somnolent.general status stable.respiratory status stable. pt.capable to reposition self.
--- NOTE | 2018-12-22 02:30 | NUR ---
pt.assessed pt.presents quiescent affect;calm,somnolent.general status stable.respiratory status stable. pt.capable to reposition self.
--- NOTE | 2018-12-22 02:45 | NUR ---
pt.assessed.pt.presents quiescent affect;calm,somnolent.general status stable.respiratory status stable. pt.capable to reposition self.
--- NOTE | 2018-12-22 03:00 | NUR ---
pt.assessed.pt.presents quiescent affect;calm somnolent.general status stable.respiratory status stable. pt.capable to reposition self.
--- NOTE | 2018-12-22 03:15 | NUR ---
pt.assessed.pt.presents quiescent affect;calm,somnolent.general status stable.respiratory status stable. pt,.capable to reposition self. veterinarian laboratory animal care has drawn the am lab samples.
--- NOTE | 2018-12-22 03:30 | NUR ---
pt.assessed.pt.presents quiescent affect;calm,somnolent.general status stable.respiratory status stable. pt.capable to reposition self.
--- NOTE | 2018-12-22 03:45 | NUR ---
pt.assessed.pt.presents quiescent affect;calm,somnolent.general status stable.respiratory status stable. pt.capable to reposition self.
[2018-12-22 04:00] VITALS: BP_SYST 138
--- NOTE | 2018-12-22 04:00 | NUR ---
pt.assessed.pt.presents quiescent affect;calm,somnolent.general status stable.respiratory status stable. pt.capable to reposition self. Addendum: 12/22/18 at 0428 by Landry Stoner RN i have assessed the v/s:values w/in normal limits:o2-sat%=96%@room air.
--- NOTE | 2018-12-22 04:15 | NUR ---
pt.assessed.pt.presents quiescent affect;calm,somnolent.general status stable.respiratory status stable. pt.cable to reposition self.
--- NOTE | 2018-12-22 04:30 | NUR ---
pt.assessed.pt.presents quiescent affect;calm,somnolent.general status stable.respiratory status stable. pt.capable to reposition self.
[2018-12-22 04:32] LABS: CALCIUM 9.2 mg/dL (8.4-11.0); POTASSIUM 4.1 mmol/L (3.5-5.1)
[2018-12-22 04:35] LABS: BASOPHILS # (AUTO) 0.1 K/uL (0.0-0.2); BASOPHILS % (AUTO) 1.7 % (0.0-2.0); EOSINOPHILS # (AUTO) 0.1 K/uL (0.0-0.4); EOSINOPHILS % (AUTO) 2.6 % (0.0-4.0); HEMATOCRIT 40.8 % (36-54); HEMOGLOBIN 12.8 g/dL (14.0-18.0); LYMPHOCYTES # (AUTO) 1.7 K/uL (1.0-5.5); LYMPHOCYTES % (AUTO) 37.1 % (20.5-51.5); MEAN CORPUSCULAR HEMOGLOBIN 25 pg (27-31); MEAN CORPUSCULAR HGB CONC 31 % (32-36); MEAN CORPUSCULAR VOLUME 81 fL (79.0-98.0); MONOCYTES # (AUTO) 0.7 K/uL (0.0-1.0); MONOCYTES % (AUTO) 15.5 % (1.7-9.3); NEUTROPHILS # (AUTO) 1.9 K/uL (1.8-7.7); NEUTROPHILS % (AUTO) 43.1 % (40.0-70.0); PLATELET COUNT (AUTO) 220 K/uL (130-430); RED BLOOD CELL COUNT(AUTO) 5.07 MIL/uL (4.2-6.2); RED CELL DISTRIBUTION WIDTH 24.4 % (9.0-15.0); WHITE BLOOD COUNT (AUTO) 4.5 K/uL (4.8-10.8)
--- NOTE | 2018-12-22 04:45 | NUR ---
pt.assessed.pt.presents quiescent affect;calm,somnolent.general status stable.respiratory status stable. pt.capable to reposition self.
--- NOTE | 2018-12-22 05:00 | NUR ---
pt.assessed.pt.presents quiescent affect;calm,somnolent.general status stable.respiratory status stable. pt.capable to reposition self.
--- NOTE | 2018-12-22 05:15 | NUR ---
pt.assessed.pt.presents quiescent affect;calm,somnolent.general status stable.respiratory status stable. pt.capable to reposition self.
--- NOTE | 2018-12-22 05:30 | NUR ---
pt.assessed.pt.presents quiescent affect;calm,somnolent.general status stable.respiratory status stable. pt.capable to reposition self.
--- NOTE | 2018-12-22 05:45 | NUR ---
pt.assessed.pt.presents quiescent affect;calm,somnolent.general status stable.respiratory status stable. pt.capable to reposition self.
--- NOTE | 2018-12-22 06:00 | NUR ---
pt.assessed.pt.presents quiescent affect;calm,somnolent.general status stable.respiratory status stable. 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
--- NOTE | 2018-12-22 06:15 | NUR ---
pt.assessed.pt.presents quiescent affect;calm,somnolent.general status stable.respiratory status stable. pt.capable to reposition self.
--- NOTE | 2018-12-22 06:30 | NUR ---
pt.assessed.pt.presents quiescent affect;calm,somnolent.general status stable.respiratory status stable. pt.capable to reposition self.
--- NOTE | 2018-12-22 06:45 | NUR ---
pt.assessed.pt.presents quiescent affect;calm,somnolent.general status stable.respiratory status stable. pt.capable to reposition self.
--- NOTE | 2018-12-22 07:00 | NUR ---
pt.assessed.p.presents quiescent affect;calm,somnolent.general status stable.respiratory status stable. pt.capable to reposition self.
--- NOTE | 2018-12-22 07:15 | NUR ---
RECEIVED REPORT FROM PAPO. PATIENT IS CALM BUT AROUSABLE. PATIENT IS ALSO HAS AN EPISODE OF URINARY INCONTINENCE. HE IS CLEANED AND REPOSITIONED.
[2018-12-22] MEDS: LORazepam 2 MG/ML VIAL IM PRN ×2 (07:29→21:17)
[2018-12-22] MEDS: HALOPERIDOL LACTATE 5 MG/ML VIAL IM PRN ×3 (07:29→21:27)
[2018-12-22] MEDS: DIPHENHYDRAMINE INJ 50 MG/ML VIAL IM PRN ×3 (07:30→21:28)
--- NOTE | 2018-12-22 07:30 | NUR ---
PATIENT APPEARS AGITATED , KICKING HIS LEGS, AND SCREAMING INCOMPREHENSIBLE WORDS. HALDOL, ATIVAN, BENARDYL ARE GIVEN IM.
--- NOTE | 2018-12-22 07:45 | NUR ---
PATIENT IS RESTING, CHEST RISING AND FALLING EVENLY, NO SIGNS OF DISTRESS NOTED.
[2018-12-22] MEDS: QUEtiapine FUMARATE 100 MG TABLET PO SCH ×2 (07:57→21:17)
[2018-12-22] MEDS: METOPROLOL SUCCINATE 50 MG TAB.SR.24H (TOPROL XL) PO SCH ×2 (07:59→21:00)
[2018-12-22 08:00] VITALS: BP_SYST 126
--- NOTE | 2018-12-22 08:00 | NUR ---
PATIENT REFUSES BREAKFAST, AND ATTEMPTS TO SWING HIS ARM AT HIS RN. PATIENT TAKES SEROQUEL AND METOPROLOL, BUT HE IS UNWILLING TO TAKE FURTHER MEDS.
--- NOTE | 2018-12-22 08:15 | NUR ---
PATIENT IS CALM AND RESTING, NO SIGNS OF DISTRESS NOTED.
--- NOTE | 2018-12-22 08:26 | NUR ---
RN CALLS JOSELIN REYES. STATES THAT JOSELIN REYES NEVER RECEIVES INFORMATION FROM THE HOSPITAL.
--- NOTE | 2018-12-22 08:30 | NUR ---
PATIENT IS CALM, BUT WITH EPISODES OF AGITATION, HE WAS SWINGING HIS FISTS.
--- NOTE | 2018-12-22 08:45 | NUR ---
PATIENT IS CALM AND SLEEPING, AROUSABLE, CHEST RISING AND FALLING EVENLY, NO SIGNS OF DISTRESS NOTED .
--- NOTE | 2018-12-22 08:54 | NUR ---
RN INFORMED WILFRED DIMAS, ON THE SITUATION WITH JOSELIN AMY. SHE STATES SHE WILL FOLLOW UP.
[2018-12-22] MEDS: MUPIROCIN 2% TOPICAL OINTMENT 22 GM TP SCH ×2 (08:57→21:00)
[2018-12-22] MEDS: ISOSORBIDE DINITRATE 10 MG TABLET (ISORDIL) PO SCH (09:00)
[2018-12-22] MEDS: SPIRONOLACTONE 50 MG TABLET (ALDACTONE) PO SCH (09:00)
[2018-12-22] MEDS: APIXABAN 2.5 MG TABLET PO SCH ×2 (09:00→21:00)
[2018-12-22] MEDS: FUROSEMIDE 20 MG TABLET PO SCH ×2 (09:00→21:00)
[2018-12-22] MEDS: hydrALAZINE HCL 25 MG TABLET PO SCH ×2 (09:00→21:00)
[2018-12-22] MEDS: ASPIRIN 81 MG TAB.CHEW PO SCH (09:00)
[2018-12-22] MEDS: LISINOPRIL 10 MG TABLET (PRINIVIL) PO SCH (09:00)
--- NOTE | 2018-12-22 09:00 | NUR ---
PATIENT IS CALM AND RESTING YET AROUSABLE, NO SIGNS OF DISTRESS NOTED.
--- NOTE | 2018-12-22 09:06 | NUR ---
Case mgt: F/U for psych placement: Per charge nurse Lucia and 1:1 sitter MIRIAM Cueto, our nursing staff called [facility] last night and they were told they had no paperwork on pt. I called [facility] at [phone], spoke with Bruna. She confirmed that they did not have any paperwork on pt--I confirmed fax # with Bruna-she gave me fax#[phone]. I have faxed packet with H&P, labs, holds, facesheet, I&O, medications, psych consult note and transfer order. I also called [facility] at [phone]-s/w Aniya in intake-she said they are still working on placement-I gave her my direct cm ph#--GENOVEVA PINEDA
--- NOTE | 2018-12-22 09:15 | NUR ---
PATIENT IS CALM AND SOMNOLENT, NO SIGNS OF DISTRESS NOTED.
--- NOTE | 2018-12-22 09:30 | NUR ---
PATIENT IS RESTING, CALM AND SLEEPY, CHEST RISING AND FALLING EVENLY.
--- NOTE | 2018-12-22 09:45 | NUR ---
PATIENT IS AT REST, CHEST RISING AND FALLING EVENLY, NO SIGNS OF DISTRESS NOTED.
--- NOTE | 2018-12-22 10:00 | NUR ---
PATIENT IS AT REST, SNORING, CHEST RISING AND FALLING, NO SIGNS OF DISTRESS NOTED.
--- NOTE | 2018-12-22 10:15 | NUR ---
PATIENT IS SLEEPING, AROUSABLE, CHEST RISING AND FALLING EVENLY. NO SIGNS OF DISTRESS NOTED.
--- NOTE | 2018-12-22 10:20 | NUR ---
Case mgt: I received call from Ruby at [facility] indicating pt is too high of medical acuity to accept at their facility due to cardiac issues, diabetes, COPD, even if pt is medically cleared for discharge by physician and pt is ambulatory-no durbin, no IV lines -Per Ruby, they cannot accept pt there and recommended medical inpt psych facility. I relayed this information to nurse Rom and nurse Isabell and to obtain new [phone] from psych MD, as per Rom, it expires at 5pm today.
--- NOTE | 2018-12-22 10:30 | NUR ---
PATIENT WAS LARGELY CALM, WITH OCCASIONALLY BURST OF RESTLESS, WITH EPISODES OF WAVING, FLEXING AND EXTENDING HIS LEGS AND ARMS.
--- NOTE | 2018-12-22 10:44 | NUR ---
PATIENT IS CALM AND SOMNOLENT, RESTING, NO SIGNS OF DISTRESS NOTED.
--- NOTE | 2018-12-22 11:00 | NUR ---
PATIENT IS RESTING, NO SIGNS OF DISTRESS NOTED.
--- NOTE | 2018-12-22 11:15 | NUR ---
PATIENT IS CALM AND SOMNOLENT, AROUSABLE, CHEST RISING AND FALLING EVENLY. WILL CONTINUE TO MONITOR.
--- NOTE | 2018-12-22 11:19 | NUR ---
PT note Therapy on hold for today; nursing agreed with decision.
--- NOTE | 2018-12-22 11:32 | NUR ---
PATIENT IS RESTING, CALM AND SOMNOLENT, NO SIGNS OF DISTRESS NOTED.
--- NOTE | 2018-12-22 11:48 | NUR ---
Patient resting no sign of acute distress,safety/fall precaution initiated sitter at the bedside.
[2018-12-22 12:00] VITALS: BP_SYST 117
--- NOTE | 2018-12-22 12:06 | NUR ---
Patient sleeping but arousable.
--- NOTE | 2018-12-22 12:22 | NUR ---
PATIENT IS RESTING, CALM, SLEEPING YET AROUSABLE, NO SIGNS OF DISTRESS NOTED.
--- NOTE | 2018-12-22 12:28 | NUR ---
PATIENT HAS AN EPISODE OF INCONTINENCE OF URINE. PATIENT IS CHANGED AND POSITIONED FOR COMFORT.
--- NOTE | 2018-12-22 12:31 | NUR ---
PATIENT IS OFFERED WITH LUNCH, BUT HE REFUSED AND SPITS OUT HIS FOOD DESPITE ENCOURAGEMENT FROM RN.
--- NOTE | 2018-12-22 12:46 | NUR ---
PATIENT REFUSES TO OPEN HIS MOUTH WHEN OFFERED FOOD, AND SWUNG HIS ARM AT THE RN.
--- NOTE | 2018-12-22 13:00 | NUR ---
PATIENT IS SLEEPING, AROUSABLE, CHEST RISING AND FALLING EVENLY.
--- NOTE | 2018-12-22 13:15 | NUR ---
PATIENT IS CALM, BUT WITH OCCASIONAL AGITATION; HE WAS SCREAMING "I WANNA GO HOME!" RN EXPLAINED THAT HE NEEDS TO GET BETTER FIRST.
--- NOTE | 2018-12-22 13:30 | NUR ---
PATIENT IS SLEEPY YET EASILY AROUSABLE. NO SIGNS OF ACUTE DISTRESS NOTED.
--- NOTE | 2018-12-22 13:45 | NUR ---
PATIENT IS ASSESSED BY RT. BREATHING EVEN AND UNLABORED, O2 SAT AT 98%.
--- NOTE | 2018-12-22 14:01 | NUR ---
PATIENT IS RESTING, CHEST RISING AND FALLING EVENLY, NO SIGNS OF DISTRESS NOTED.
--- NOTE | 2018-12-22 14:15 | NUR ---
PATIENT IS SLEEPING BUT AROUSABLE. DRANK 120ML OF APPLE JUICE. TOLERATED WITHOUT DISTRESS.
--- NOTE | 2018-12-22 14:30 | NUR ---
PATIENT IS RESTING, OCCASIONALLY AWAKENED BEFORE FALLING BACK TO SLEEP. NO SIGNS OF DISTRESS NOTED.
--- NOTE | 2018-12-22 14:45 | NUR ---
PATIENT SNORING WITH HIS EYES CLOSED, BREATHING EVEN AND UNLABORED, CHEST FALLING AND RISING SYMMETRICALLY. PATIENT OCCASIONALLY FIDGETS HIS ARMS AND LEGS.
--- NOTE | 2018-12-22 14:46 | NUR ---
Case mgt: I faxed updated discharge order to psych facility to the [facility] fax#[phone]--I called Laney there also at [phone]--she indicates [facility] has no beds, waiting to hear back from [facility] and [facility]--Laney will continue to work on placement. Laney thought [facility] was in [facility], which I corrected her that [facility] is located in [facility], so that [place] lines [place] a [place]. GENOVEVA PINEDA Addendum: 12/22/18 at 1452 by Belinda Robles RN Received a call from Laney that [phone] hold is up at 3pm today--I let her know our charge nurse was working on getting magnolia MURPHY in to do new [phone] and will fax it to her as soon as we have it. Gavin, control panel operator crude unit, is paging magnolia MURPHY--GENOVEVA PINEDA
--- NOTE | 2018-12-22 14:56 | NUR ---
paged to renew hold. Dr. Avila evp operations.
--- NOTE | 2018-12-22 15:00 | NUR ---
PATIENT IS RESTING, NO SIGNS OF DISTRESS NOTED
--- NOTE | 2018-12-22 15:02 | NUR ---
PATIENT IS CALM, AND SLEEPING. CHEST RISING AND FALLING EVENLY. NO SIGNS OF DISTRESS NOTED.
--- NOTE | 2018-12-22 15:15 | NUR ---
PATIENT IS CALM, BUT WITH PERIODIC AGITATION MANIFESTED IN SCREAMING AND FLAILING HIS ARMS AROUND.
--- NOTE | 2018-12-22 15:30 | NUR ---
PATIENT IS RESTING AT THIS TIME, BUT APPEARS RESTLESS AT TIMES.
--- NOTE | 2018-12-22 15:45 | NUR ---
PATIENT IS AT REST, BUT SCREAMS NONSENSICAL WORDS OCCASIONALLY.
[2018-12-22 16:00] VITALS: BP_SYST 124
--- NOTE | 2018-12-22 16:00 | NUR ---
PATIENT IS AGITATED, ATTEMPTS TO GET OUT OF BED. PATIENT IS THEN PLACED BACK INTO SEMI-PENALOZA'S POSITION.
--- NOTE | 2018-12-22 16:15 | NUR ---
PATIENT'S FAMILY COMES TO VISIT. PATIENT APPEARS TO BE CALM, BREATHING EVEN AND UNLABORED.
--- NOTE | 2018-12-22 16:30 | NUR ---
THE MOTHER OF THE PATIENT IS STILL AT BEDSIDE. PATIENT APPEARS TO BE CALM, BREATHING EVEN AND UNLABORED.
--- NOTE | 2018-12-22 16:45 | NUR ---
PATIENT HAS AN EPISODE OF INCONTINENCE. PATIENT IS TURNED, CLEANED AND REPOSITIONED FOR COMFORT.
--- NOTE | 2018-12-22 17:01 | NUR ---
PATIENT IS RESTING, CALM, SOMNOLENT. NO SIGNS OF DISTRESS NOTED.
[2018-12-22] MEDS: OLANZapine 10 MG TABLET PO SCH (17:14)
--- NOTE | 2018-12-22 17:15 | NUR ---
PATIENT SUDDEN BECOMES AGITATED AND SITS ON THE SIDE OF THE BED. SECURITY IS CALLED TO ASSIST PATIENT BACK IN BED.
--- NOTE | 2018-12-22 17:30 | NUR ---
PATIENT IS CALM AFTER RECEIVING SEROQUEL AND BENADRYL
--- NOTE | 2018-12-22 17:45 | NUR ---
PATIENT REFUSES DINNER, AND SPITS OUT FOOD THAT IS PUT INTO HIS MOUTH. HE IS WILLING TO RECEIVE FLUIDS HOWEVER. PATIENT TOLERATES FLUIDS WITH NO SIGNS OF ASPIRATIONS
--- NOTE | 2018-12-22 18:00 | NUR ---
PATIENT IS RESTING, NO SIGNS OF DISTRESS NOTED.
--- NOTE | 2018-12-22 18:15 | NUR ---
PATIENT IS CALM, SOMNOLENT, BUT AROUSABLE. CHEST RISING AND FALLING EVENLY. NO SIGNS OF DISTRESS NOTED.
--- NOTE | 2018-12-22 18:30 | NUR ---
PATIENT IS CALM, SOMNOLENT, BUT AROUSABLE. CHEST RISING AND FALLING EVENLY. NO SIGNS OF DISTRESS NOTED.
--- NOTE | 2018-12-22 18:45 | NUR ---
PATIENT IS RESTING, CALM, SLEEPING YET AROUSABLE, NO SIGNS OF DISTRESS NOTED.
--- NOTE | 2018-12-22 19:00 | NUR ---
PATIENT IS RESTING AND CALM. BREATHING EVEN AND UNLABORED. REPORT IS GIVEN TO MIRIAM MCCABE, WHO WILL ASSUME CARE.
--- NOTE | 2018-12-22 19:00 | NUR ---
OPENING NOTES RECEIVED BEDSIDE REPORT WITH PATIENT IN BED RESTING. PATIENT IS CALM AND SNORING. NO PAIN OR RESPIRATORY DISTRESS OBSERVED. RESTRAINTS ARE OFF AT THIS TIME. WILL CONTINUE TO MONITOR THROUGHOUT SHIFT.
--- NOTE | 2018-12-22 19:15 | NUR ---
PATIENT RESTING. CALM AND COOPERATIVE.
--- NOTE | 2018-12-22 19:30 | NUR ---
PT STILL RESTING IN BED. VISUALIZED RISE AND FALL OF CHEST OBSERVED. NO DISTRESS OR PAIN NOTED.
--- NOTE | 2018-12-22 19:45 | NUR ---
RT AT BEDSIDE ASSESSING THE PATIENT AND ADMINISTERING BREATHING TREATMENT. PATIENT IS UNCOOPERATIVE AND REMOVING THE MASK. ATTEMPTED TO PLACE MASK ON BUT PATIENT IS BECOMING AGITATED.
[2018-12-22 20:00] VITALS: BP_SYST 140
--- NOTE | 2018-12-22 20:00 | NUR ---
PATIENT MOVING AROUND IN BED. STILL CALM AND NO OBSERVED DISTRESS. WILL CONT TO MONITOR.
--- NOTE | 2018-12-22 20:15 | NUR ---
PATIENT RESTING. CALM AND COOPERATIVE AT THIS TIME. NO CHANGE IN CONDITION.
--- NOTE | 2018-12-22 20:23 | NUR ---
PATIENT AGITATED SWINGING ARMS AND SPEAKING GARBLED WORDS. UNABLE TO COMPREHEND. APPROXIMATELY 2 MINUTES, THEN PATIENT IS CALM AGAIN.
--- NOTE | 2018-12-22 20:30 | NUR ---
PATIENT RESTING IN BED. NO DISTRESS NOTED. BREATHING COMFORTABLY. CHECKED FOR INCONTINENCE WITH NO URINE OR BOWEL MOVEMENT.
--- NOTE | 2018-12-22 20:45 | NUR ---
PATIENT CONTINUES TO SLEEP, RESPIRATIONS EVEN AND UNLABORED.
--- NOTE | 2018-12-22 21:00 | NUR ---
PATIENT AWAKE WITH GARBLED WORDS, UNABLE TO UNDERSTAND. NO DISTRESS AT THIS TIME.
--- NOTE | 2018-12-22 21:20 | NUR ---
PATIENT SCREAMING AND ATTEMPTING TO GET OUT OF BED. SWINGING ARMS. ATIVAN GIVEN. WILL GIVE HALDOL AND BENADRYL PRN.
--- NOTE | 2018-12-22 21:30 | NUR ---
PATIENT ABLE TO TAKE SIPS OF WATER. GIVEN SEROQUEL AND TOLERATED. PATIENT THEN BEGAN SPITTING WATER OUT OF HIS MOUTH. WOULD NOT DRINK ANY MORE AND BEGAN SCREAMING.
--- NOTE | 2018-12-22 21:45 | NUR ---
PATIENT IN BED RESTING. NO MORE OUTBURSTS AT THIS TIME.
--- NOTE | 2018-12-22 22:00 | NUR ---
PATIENT ASLEEP COMFORTABLY IN BED. NO OBSERVED PAIN OR RESPIRATORY DISTRESS. BREATHING EVEN AND UNLABORED.
--- NOTE | 2018-12-22 22:15 | NUR ---
RESTING COMFORTABLY. NO PAIN OR RESPIRATORY DISTRESS OBSERVED. WILL CONT TO MONITOR.
--- NOTE | 2018-12-22 22:30 | NUR ---
PATIENT IN BED ASLEEP. NO VERBALIZATIONS AT THIS TIME. PATIENT IS CALM. NO DISTRESS OBSERVED.
--- NOTE | 2018-12-22 22:45 | NUR ---
NO CHANGE IN CONDITION. PATIENT REMAINS RESTING IN BED. WITH NO OBSERVED PAIN OR RESPIRATORY DISTRESS.
--- NOTE | 2018-12-22 23:00 | NUR ---
PATIENT SLEEPING IN BED. COMFORTABLE WITH NO PAIN OR RESPIRATORY DISTRESS. WILL CONTINUE TO MONITOR.
--- NOTE | 2018-12-22 23:23 | NUR ---
Patient continues to sleep, breathing even and unlabored, will monitor.
--- NOTE | 2018-12-22 23:32 | NUR ---
Patient continues to sleep, breathing even and unlabored, will monitor.
--- NOTE | 2018-12-22 23:45 | NUR ---
PATIENT RESTING IN BED. HAD AN OUTBURST OF SCREAMING THEN WENT BACK TO SLEEP.
[2018-12-23] VITALS (8 sets, daily range): BP systolic 119–146
--- NOTE | 2018-12-23 | NUR ---
PATIENT TURNING IN BED, GRUNTING. NOW CALM.
--- NOTE | 2018-12-23 00:15 | NUR ---
PATIENT RESTING IN BED. CALM AND QUIET. BREATHING EVEN, EQUAL AND UNLABORED.
--- NOTE | 2018-12-23 00:30 | NUR ---
PATIENT SLEEPING IN BED. AUDIBLE BREATH SOUNDS HEARD. NO DISTRESS OR PAIN NOTED AT THIS TIME.
--- NOTE | 2018-12-23 00:45 | NUR ---
RESTING IN BED. NO CHANGE IN CONDITION. WILL CONTINUE TO MONITOR.
[2018-12-23] MEDS: IPRATROPIUM/ALBUTEROL SULFATE 3 ML AMPUL.NEB (DUONEB) INH SCH ×4 (00:55→20:34)
--- NOTE | 2018-12-23 01:00 | NUR ---
SLEEPING, BREATHING EQUAL AND UNLABORED. NO DISTRESS OR PAIN AT THIS TIME. WILL CONTINUE TO MONITOR.
--- NOTE | 2018-12-23 01:15 | NUR ---
PATIENT CALM AND QUIET. BREATHING WNL, NO PAIN OR RESPIRATORY DISTRESS. WILL CONTINUE TO MONITOR.
--- NOTE | 2018-12-23 01:30 | NUR ---
PATIENT RESTING IN BED. NO RESPIRATORY DISTRESS OR PAIN AT THIS TIME. BREATHING WNL.
--- NOTE | 2018-12-23 01:45 | NUR ---
PATIENT AGITATED, SWINGING ARMS IN THE AIR. MUMBLING INCOMPREHENSIBLE WORDS. WILL MEDICATE TO CALM DOWN.
[2018-12-23] MEDS: LORazepam 2 MG/ML VIAL IM PRN (01:51)
[2018-12-23] MEDS: HALOPERIDOL LACTATE 5 MG/ML VIAL IM PRN ×3 (01:52→17:47)
[2018-12-23] MEDS: DIPHENHYDRAMINE INJ 50 MG/ML VIAL IM PRN ×3 (01:52→17:44)
--- NOTE | 2018-12-23 02:00 | NUR ---
MEDICATED WITH ATIVAN, BENADRYL, AND HALDOL. PATIENT COOPERATIVE WITH MEDICATIONS. WILL CONTINUE TO MONITOR FOR ANY DISTRESS.
--- NOTE | 2018-12-23 02:15 | NUR ---
PATIENT COMFORTABLE AND RESTING. BREATHING IS AUDIBLE WITH NO NOTICEABLE PAIN OR RESPIRATORY DISTRESS.
--- NOTE | 2018-12-23 02:30 | NUR ---
PATIENT DRY COUGHING AND GROANING. BREATHING EQUAL AND NON LABORED. WILL KEEP MONITORING FOR ANY CHANGE IN CONDITION.
--- NOTE | 2018-12-23 02:45 | NUR ---
Patient is asleep with no signs of distress noted. Call light within reach. Will continue to monitor.
--- NOTE | 2018-12-23 03:00 | NUR ---
Pt continues to sleep, momentarily grunting a few times while snoring. No signs of distress noted. Will continue to monitor.
--- NOTE | 2018-12-23 03:15 | NUR ---
Patient continues to sleep, momentarily stretching his legs and bending his knees a few times while snoring. No signs of distress noted. Will continue to monitor.
--- NOTE | 2018-12-23 03:30 | NUR ---
PATIENT SLEEPING IN BED. AUDIBLE BREATH SOUNDS HEARD. NO FACIAL GRIMACING OR SHORTNESS OF BREATH NOTED.
--- NOTE | 2018-12-23 03:45 | NUR ---
PATIENT LAYING IN BED SNORING. RESPIRATIONS AT 20. RESTING COMFORTABLY.
--- NOTE | 2018-12-23 04:00 | NUR ---
PATIENT RESTING IN BED. NO CHANGE IN CONDITION SINCE LAST NOTE.
--- NOTE | 2018-12-23 04:15 | NUR ---
PATIENT RESTING COMFORTABLY. RISE AND FALL OF CHEST OBSERVED. WILL CONT TO MONITOR.
--- NOTE | 2018-12-23 04:30 | NUR ---
BREATHING EQUAL AND UNLABORED. RESTING COMFORTABLY.
--- NOTE | 2018-12-23 05:00 | NUR ---
NO CHANGE IN CONDITION. PATIENT RESTING COMFORTABLY WITH NO NOTED PAIN OR DIFFICULTY BREATHING.
--- NOTE | 2018-12-23 05:15 | NUR ---
PATIENT MOVING BILATERAL LOWER EXTREMITIES. PATIENT MUMBLING WORDS. NO RESPIRATORY DISTRESS OR PAIN.
--- NOTE | 2018-12-23 05:30 | NUR ---
NO CHANGE SINCE LAST NOTE. PATIENT IN BED SLEEPING WITH AUDIBLE BREATH SOUNDS. WILL CONTINUE TO MONITOR.
--- NOTE | 2018-12-23 05:45 | NUR ---
PATIENT IN BED. SCREAMING RANDOMLY AND AND BECOMING AGITATED. WILL MEDICATE TO CALM PATIENT.
--- NOTE | 2018-12-23 06:00 | NUR ---
DAILY WEIGHT 309LBS VIA BUILT IN BED SCALE. PATIENT IN BED ASLEEP. NO DISTRESS OR PAIN NOTED.
--- NOTE | 2018-12-23 06:15 | NUR ---
SOME OUTBURST AND MUMBLING WITH KICKING OF FEET. OTHERWISE RESTING IN BED.
--- NOTE | 2018-12-23 06:30 | NUR ---
PATIENT RESTING IN BED. NO PAIN OR RESPIRATORY DISTRESS AT THIS TIME.
--- NOTE | 2018-12-23 06:45 | NUR ---
PATIENT CALM AND RELAXED. AUDIBLE BREATH SOUNDS HEARD. NO FACIAL GRIMACING OF PAIN. NO RESPIRATORY DISTRESS.
--- NOTE | 2018-12-23 07:00 | NUR ---
CALM AND COOPERATIVE. PATIENT SHOWING NO SIGN OF PAIN OR RESPIRATORY DISTRESS. WILL ENDORSE CARE TO ONCOMING NURSE.
--- NOTE | 2018-12-23 07:15 | NUR ---
RECEIVED REPORT: PT IN BED EYES CLOSED APPEARS SLEEPING, RR IS 28. HR IS 127. MUMBLES AND MOVES ARMS BRIEFLY WHEN VITALS ARE TAKEN BUT THEN GOES BACK TO SLEEP. WILL CONT TO MONITOR.
--- NOTE | 2018-12-23 07:31 | NUR ---
PT IN BED, SLEEPING, APPEARS COMFORTABLE.
--- NOTE | 2018-12-23 07:45 | NUR ---
PT IN BED, EYES CLOSED APPEARS SLEEPING, SNORING. RR IS 28 BPM.
--- NOTE | 2018-12-23 08:00 | NUR ---
PT ON AND OFF AGITATION. BUT CALMS DOWN WHEN TOLD TO. PT IS NOW AGAIN SNORING WITH EYES CLOSED. BREATHING STILL FAST. PT OFFERED TO HAVE BREAKFAST WITH ASSIST, PT DOES NOT WANT TO OPEN HIS MOUTH, GIVEN FEW DROPS OF WATER ON MOUTH, PT NOT SWALLOWING. PT AT RISK OF ASPIRATION. WILL CONT TO MONITOR.
--- NOTE | 2018-12-23 08:15 | NUR ---
PATIENT LAYING IN BED SNORING. RESPIRATIONS AT 24. BRIEFLY WAKES UP & MUMBLES. BUT GOES BACK TO SLEEP.
--- NOTE | 2018-12-23 08:30 | NUR ---
PATIENT LAYING IN BED SNORING. RESPIRATIONS AT 24. BRIEFLY WAKES UP & MUMBLES. BUT GOES BACK TO SLEEP.
--- NOTE | 2018-12-23 08:45 | NUR ---
PATIENT LAYING IN BED SNORING. RESPIRATIONS AT 28. ON DIRECT OBSERVATION.
[2018-12-23] MEDS: MUPIROCIN 2% TOPICAL OINTMENT 22 GM TP SCH (09:00)
[2018-12-23] MEDS: ASPIRIN 81 MG TAB.CHEW PO SCH (09:00)
[2018-12-23] MEDS: APIXABAN 2.5 MG TABLET PO SCH (09:00)
[2018-12-23] MEDS: QUEtiapine FUMARATE 100 MG TABLET PO SCH (09:00)
[2018-12-23] MEDS: LISINOPRIL 10 MG TABLET (PRINIVIL) PO SCH (09:00)
[2018-12-23] MEDS: FUROSEMIDE 20 MG TABLET PO SCH (09:00)
[2018-12-23] MEDS: METOPROLOL SUCCINATE 50 MG TAB.SR.24H (TOPROL XL) PO SCH (09:00)
[2018-12-23] MEDS: hydrALAZINE HCL 25 MG TABLET PO SCH (09:00)
[2018-12-23] MEDS: SPIRONOLACTONE 50 MG TABLET (ALDACTONE) PO SCH (09:00)
[2018-12-23] MEDS: ISOSORBIDE DINITRATE 10 MG TABLET (ISORDIL) PO SCH (09:00)
--- NOTE | 2018-12-23 09:00 | NUR ---
PATIENT LAYING IN BED SNORING. RESPIRATIONS AT 27. ON DIRECT OBSERVATION.
--- NOTE | 2018-12-23 09:15 | NUR ---
OBSERVATION NOTES: PATIENT IS LYING IN BED WITH BOTH EYES CLOSED .WILL CONTINUE TO MONITOR
--- NOTE | 2018-12-23 09:30 | NUR ---
THIS RN CAME BACK FROM BREAK, MAINTENANCE GROUNDSKEEPER AND HYPERION ADMINISTRATOR AND RT. AT BEDSIDE. PER REPORT PT STATED HE IS HAVING HARD TIME BREATHING AND O2 SAT WENT DOWN. PT WAS PLACE ON BILAT WRIST RESTRAINT AND PT PLACE ON BI-PAP. WILL CONTINUE TO MONITOR. DR KEARNS WAS MADE AWARE BY MAINTENANCE GROUNDSKEEPER ZENY.
--- NOTE | 2018-12-23 09:45 | NUR ---
PT IN BED, ON BIPAP, PT ENCOURAGED TO KEEP THE BIPAP ON EDUCATED PT ON WHY HE WAS PLACED ON BIPAP- PT APPEARS LISTENING, SPEECH INCOMPREHENSIBLE THIS TIME. BUT PT STOPPED, CLOSED AND EYES AND APPEARS TO BE DOSING OFF AGAIN. WILL CONT TO MONITOR.
--- NOTE | 2018-12-23 10:00 | NUR ---
PATIENT LAYING IN BED. BIPAP ON.
--- NOTE | 2018-12-23 10:15 | NUR ---
PT IN BED, ON BIPAP, CNI STUDENT RN AND CNI INSTRUCTOR RADHA AT BEDSIDE TO PERFORM STRAIGHT CATH ORDERED BY . Addendum: 12/23/18 at 1033 by Pankaj Thao RN CNI STUDENT RN IS JERI.
--- NOTE | 2018-12-23 10:27 | NUR ---
STRAIGHT CATH DONE BY CNI STRUCTOR RADHA AND STUDENT. 800 CC OUT WITH DARK IVON URINE. PT TOLERATED WELL. WILL CONT TO MONITOR. PT SEEN BY DR WALLACE.
--- NOTE | 2018-12-23 10:45 | NUR ---
PATIENT IN BED, RESTING COMFORTABLY, ON BIPAP, RR IS 16 WITH O2SAT OF 97%. DIRECT OBSERBATION .
--- NOTE | 2018-12-23 11:00 | NUR ---
PATIENT IN BED SNORING. ON BIPAP RESPIRATION RATE AT 19, O2 SAT IS 94-96%. EYES CLOSED, APPEARS SLEEPING. ON DIRECT OBSERBATION.
--- NOTE | 2018-12-23 11:15 | NUR ---
SPOKE WITN PT'S , MICHAEL AND FATHER AND MOTHER. THEY WERE MADE AWARE THAT PATIENT WAS PLACED ON BIPAP AND WIRST RESTRAINTS. UPDATED WITH PATIENT'S CONDITION. PT RESTING COMFORTABLY. ON BIPAP. ON DIRECT OBSERVATION.
--- NOTE | 2018-12-23 11:30 | NUR ---
PT IN BED, ON BIPAP, EYES CLOSED. APPEARS COMFORTABLE. ON DIRECT OBSERVATION.
--- NOTE | 2018-12-23 11:45 | NUR ---
PT SLEEPING, NO BIPAP, COMFORTABLE. ON DIRECT OBSERVATION.
--- NOTE | 2018-12-23 12:00 | NUR ---
PT IN BED, RESTING COMFORTABLY IN BED, ON BIPAP, ON DIRECT OBSERVATION .
--- NOTE | 2018-12-23 12:12 | NUR ---
DC Planning: Recalled C.O and s/w Bruna that the pt is medically cleared for placement at the psych facility. Per Bruna, the pt 's condition is still be of concerns and unable to accept the pt. >> Called Behavioral placement ctr, per Savanah: she will need a renewed 5150 be faxed for her to continue searching for the placement, fax # [phone]. The renewed 5150 has not been issued yet per JUNO Myers. She will f/u with the psychiatrist.
--- NOTE | 2018-12-23 12:15 | NUR ---
pT IN BED, SLEEPING, COMFORTABLE. ON BIPAP, SEEN BY DR KEARNS. NEW ORDERS GIVEN BY DR KEARNS.
--- NOTE | 2018-12-23 12:20 | NUR ---
PT NOW SHOUTING ON AND OFF.
--- NOTE | 2018-12-23 12:21 | NUR ---
SPOKE TO DR LANGSTON RE RENEWAL OF 51:50 DR. LANGSTON CALLED BACK AND MADE AWARE ABOUT 51:[address] LANGSTON SAID HE WILL TAKE CARE OF THE RENEWAL OF THE FORM AND HE WILL CALL [facility] TO SEE IF THEY CAN ACCEPT PATIENT.
--- NOTE | 2018-12-23 12:28 | NUR ---
SPOKE LEE ANN CLEAT FEEDER LEE ANN MADE AWARE THAT SHE NEEDS TO CALL THE EX OF PATIENT RE- PLACEMENT.
--- NOTE | 2018-12-23 12:30 | NUR ---
PT IN BED, ON BIPAP, RR IS 24, O2 SAT 93%. ON DIRECT OBSERVATION.
--- NOTE | 2018-12-23 12:30 | NUR ---
CONSULTATION PAGED/CALLED Reason for Consultation: ABNORMAL LFT/GS Person Who was Notified: DOMONIQUE Consulting Physician: DR. MA Wedger Machine Specialty: IV THERAPY NURSE Ordering Physician: DR. KEARNS
--- NOTE | 2018-12-23 12:45 | NUR ---
OBSERVATION NOTES: PATIENT IS LYING IN BED WITH BOTH EYES CLOSED .WILL CONTINUE TO MONITOR
--- NOTE | 2018-12-23 13:04 | NUR ---
OBSERVATION NOTES :PATIENT CONTINUES TO BE LYING DOWN IN BED WITH BOTH EYES CLOSED .WILL CONTINUES TO MONITOR
--- NOTE | 2018-12-23 13:15 | NUR ---
PT IN BED, SLEEPING, PT ON ROOM AIR THIS TIME , RR IS 28 AGAIN, SAT IS 97%. ON DIRECT OBSERVATION.
[2018-12-23 13:24] LABS: BASOPHILS # (AUTO) 0.2 K/uL (0.0-0.2); BASOPHILS % (AUTO) 4.4 % (0.0-2.0); EOSINOPHILS # (AUTO) 0.1 K/uL (0.0-0.4); EOSINOPHILS % (AUTO) 2.6 % (0.0-4.0); HEMATOCRIT 42.8 % (36-54); HEMOGLOBIN 13.4 g/dL (14.0-18.0); LYMPHOCYTES # (AUTO) 1.4 K/uL (1.0-5.5); LYMPHOCYTES % (AUTO) 27.1 % (20.5-51.5); MEAN CORPUSCULAR HEMOGLOBIN 26 pg (27-31); MEAN CORPUSCULAR HGB CONC 31 % (32-36); MEAN CORPUSCULAR VOLUME 81 fL (79.0-98.0); MONOCYTES # (AUTO) 0.6 K/uL (0.0-1.0); MONOCYTES % (AUTO) 12.3 % (1.7-9.3); NEUTROPHILS # (AUTO) 2.7 K/uL (1.8-7.7); NEUTROPHILS % (AUTO) 53.6 % (40.0-70.0); PLATELET COUNT (AUTO) 222 K/uL (130-430); RED BLOOD CELL COUNT(AUTO) 5.28 MIL/uL (4.2-6.2); RED CELL DISTRIBUTION WIDTH 24.1 % (9.0-15.0); WHITE BLOOD COUNT (AUTO) 5.1 K/uL (4.8-10.8)
--- NOTE | 2018-12-23 13:30 | NUR ---
PT SLEEPING, COMFORTABLE, ON ROOM AIR. ON DIRECT OBSERVATION.
[2018-12-23 13:36] LABS: INR 1.8 (0.80-1.20); PROTHROMBIN TIME 18.4 SECS (9.5-12.5)
[2018-12-23 13:38] LABS: ALBUMIN 2.7 g/dL (3.4-4.8); CALCIUM 9.5 mg/dL (8.4-11.0); CREATININE 0.97 mg/dL (0.55-1.30); POTASSIUM 4.3 mmol/L (3.5-5.1); TOTAL BILIRUBIN 6.1 mg/dL (0.0-1.0)
--- NOTE | 2018-12-23 13:45 | NUR ---
PT SLEEPING COMFORTABLY, ON DIRECT OBSERBVATION.
--- NOTE | 2018-12-23 14:00 | NUR ---
PT IN BED, ON RA. SLEEPING,
--- NOTE | 2018-12-23 14:15 | NUR ---
PT SLEEPING, COMFORTABLE, ON ROOM AIR. ON DIRECT OBSERVATION.
--- NOTE | 2018-12-23 14:30 | NUR ---
PT SLEEPING, COMFORTABLE, ON ROOM AIR. ON DIRECT OBSERVATION.
--- NOTE | 2018-12-23 14:45 | NUR ---
PATIENT'S O2 SAT GOES DOWN TO 86 % ON ROOM AIR. PT CONNECTED TO BIPAP MACHINE. DIRECT OBSERVATION ON.
--- NOTE | 2018-12-23 15:00 | NUR ---
PT TRIED TO PULL ON HIS BIPAP 2X THIS TIME. PT REORIENTED AND TOLD HIM THAT HE IS IN THE HOSPITAL, PT ABLE TO TELL ME HIS NAME. TOLD HIM THAT HE IS IN THE HOSPITAL. PT SAID " I KNOW ". PT WAS TAKEN OF THE BIPAP THIS TIME. O2 SAT WAS 92% ON RA.
--- NOTE | 2018-12-23 15:15 | NUR ---
PT GIVEN 200 CC OF ENSURE, PT ABLE TO TOLERATE IT. ORAL CARE GIVEN. PT RESPONDS TO NAME BUT DOSES OFF AGAIN. ON DIRECT OBSERVATION.
--- NOTE | 2018-12-23 15:27 | NUR ---
[facility] HERE, INFORMED HER THAT PT DR KEARNS WANTS TO CHECK MORE OF THE LIVER BEC. THE RENAL FUNCTION OF PT HAS IMPROVED.
--- NOTE | 2018-12-23 15:30 | NUR ---
PT ON ROOM AIR. O2 SAT IS 97%, PT SLEEPING.
--- NOTE | 2018-12-23 15:45 | NUR ---
PT SLEEPING, O2 SAT 93 % ON ROOM AIR. RR IS 28.
--- NOTE | 2018-12-23 16:04 | NUR ---
PT SLEEPING COMFORTABLY, NO RESP DISTRESS, O2 SAT ON RA IS 92%. ON DIRECT OBSERVATION.
--- NOTE | 2018-12-23 16:15 | NUR ---
PT SLEEPING COMFORTABLY IN BED, ON DIRECT OBSERVATION.
--- NOTE | 2018-12-23 16:29 | NUR ---
PT IN BED, SLEEPING. CONTINUOUS MONITORING OF PATIENT ONGOING. SPOKE EARLIER WITH [facility] ENGRAVER HAND HARD METALS. TOLD HER THAT I SPOKE WITH DR KEARNS AND MD SAID OKAY TO DO COMPLETE TEST AND WANTS TO DO IT NOW. [facility] TECH SAID "OKAY".
--- NOTE | 2018-12-23 16:55 | NUR ---
PT IN BED, PT MUMBLES INCOMPREHESIBLE SOUND. OPENS EYES ON AND OFF. SHOUTS AT TIMES TOO BUT DOSES OFF AGAIN.
--- NOTE | 2018-12-23 17:00 | NUR ---
PT SLEEPING AGAIN THIS TIME. NO RESP DISTRESS. O2 SAT IS 97%. ON DIRECT OBSERVATION.
[2018-12-23] MEDS: OLANZapine 10 MG TABLET PO SCH (17:01)
--- NOTE | 2018-12-23 17:20 | NUR ---
PT IN BED, SLEEPING, AWAKENS ON AND OFF. ON ROOM AIR, O2 SAT IS 93%.
--- NOTE | 2018-12-23 17:47 | NUR ---
PT GIVEN HALDOL AND BENADRYL FOR PRE MED FOR CATH SCAN.
--- NOTE | 2018-12-23 18:00 | NUR ---
PT IN BED, SLEEPING COMFORTABLY. O2 SAT ON RA IS 96%. CONTINUOUS MONITOR BY SITTER ON.
--- NOTE | 2018-12-23 18:16 | NUR ---
PT IN BED, RESTLESS, WE ARE WAITING FOR HALDOL TO TAKE EFFECT. CONTINUOUS MONITORING OF PT ON. [employer]ORATORY MANAGER HERE, PT STILL RESTLESS. SHE SAID SHE WILL BE BACK LATER.
--- NOTE | 2018-12-23 18:26 | NUR ---
CHANGE OF SHIFT ENDORSEMENT TO FELIPA RAND. PT IN STABLE CONDITION. BED ALARM ON. BILAT WRIST RESTRAINTS ON.
--- NOTE | 2018-12-23 18:29 | NUR ---
PATIENT IS VERY RESTLESS SCREAMMING WRIST RESTRAINS ON BOTH HANDS
--- NOTE | 2018-12-23 18:41 | NUR ---
CLOSING NOTES, PATIENT HAS BEEN STABLE, ON AND OFF BIPAP FOR DESATURATION. BP IS WNL. NO FEVER. PT DID NOT RECEIVE ATIVAN OR HALDOL SINCE THIS AM [id number] PM ( PREMED FOR CT OF THE HEAD) PT STILL ON AND OFF AGITATION, HOPING THAT PT WILL BE ABLE TO EAT AND DRINK, HOWEVER PT WAS MADE NPO FOR SHAWNA OF ABD. BILAT WRIST RESTRAIN APPLIED AT 0930 THIS AND HAS BEEN ON SINCE. PT HAS TENDENCY TO PULL OUT THE BIPAP WHEN AWAKE. 800 CC OF DARK IVON URINE DRAINED WITH STRAIGHT CARE. PT HAD NO BM. WILL ENDORSE TO NIGHT MIRIAM BARROS.
--- NOTE | 2018-12-23 18:46 | NUR ---
PATIENT CONTINUE RESTLESS SLEEPING
--- NOTE | 2018-12-23 19:00 | NUR ---
change of shift.pt.present quiescent affect;calm,somnolent:pt.presents restraints.intact;skin intact;circulation assessed palpable.to assessed the necessity;restraints per protocol
--- NOTE | 2018-12-23 19:00 | NUR ---
CHANGING OF SHIFT FOR THE RNS THEY CAME IN THE PATIENTS ROOM TO EXCHANGE THE REPORT TO THE COMING RN PATIENT IS SLEEPING AND CONTINUE RESLESS DURING HIS SLEEPING
--- NOTE | 2018-12-23 19:16 | NUR ---
PATIENT CONTINUE RESLESS SCREAMM,ING CONTINUE ONWRIST RESTRAINS BOTH HANDS PATIENT IS ABLE TO SIT UP IN BED MOVED UP AND DOWN TO STRECHING HIMSELF
--- NOTE | 2018-12-23 19:30 | NUR ---
pt.assessed.pt.presents restless affect;restraints intact;skin intact;circulation assessed palpable. i have provided orientation to the pt.pt.presents speech;slurred;unintelligible.
--- NOTE | 2018-12-23 19:55 | NUR ---
PATIENT WAS FEEDING DINNER ATE 75% CONTINUE STAYED AWAKE RESTLESS
--- NOTE | 2018-12-23 20:00 | NUR ---
pt.assessed.pt.presents affect;restless.i have attempted to orient the pt.pt.presents speech;slurred;unintelligible. restraints intact.
--- NOTE | 2018-12-23 20:45 | NUR ---
PATIENT WAS VERY AGITATED THE TIME OF THE BREATHING TREATMENT SCREAMMED &YELLINGALSO THE TIME HE HAD A SPONGE BATH THE VETERINARY SURGERY TECHNOLOGIST WAS CALL TO STAND BY
--- NOTE | 2018-12-23 20:59 | NUR ---
PATIENT CONTINUE AGITATED &YELLING CONTINUE WRIST RESTRAINS ON BOTH HANDS TO PREVENT HIM TO HURT HIMSELFR AND OTHERS
--- NOTE | 2018-12-23 21:00 | NUR ---
pt.assessed.affect noted slight calmer.remains agitated.i have attempted to calm pt. i have offer juice.apple. Addendum: 12/24/18 at 0423 by Landry Stoner RN seroquel;100mg i am to hold the medication.nsg attempting to minimize sedation of the pt.
--- NOTE | 2018-12-23 21:16 | NUR ---
PATIENT JUST FELL ASLEEP
--- NOTE | 2018-12-23 21:28 | NUR ---
PATIENT CONTINUE SLEEPING
--- NOTE | 2018-12-23 21:30 | NUR ---
pt.assessed.pt.presents quiescent affect;calm.somnolent.restraints in place;skin integrity intact,circulation; palpable.
--- NOTE | 2018-12-23 21:48 | NUR ---
PATIENT CONTINUE SLEEPING
--- NOTE | 2018-12-23 22:00 | NUR ---
pt.assessed.pt.presents quiescent affect;calm,somnolent.restraints in place;skin integrity intact;circulation palpable.
--- NOTE | 2018-12-23 22:04 | NUR ---
PATIENT IS SLEEPING PEACE FULL AT THIS TIME
--- NOTE | 2018-12-23 22:30 | NUR ---
pt.assessed.pt.presents quiescent affect;calm,somnolent.restraints intact;skin integrity intact.circulation palpable.
--- NOTE | 2018-12-23 22:51 | NUR ---
patient woke up rn incharged to the patient came to scan patient bladder because he hasnt urinating well
--- NOTE | 2018-12-23 22:55 | NUR ---
patient went back to sleep
--- NOTE | 2018-12-23 23:00 | NUR ---
pt.assessed.i have assessed the bladder;per bladder scan;noted;100ml.i have requested 2nd external relations manager; saul;rn has assessed the bladder;per bladder scan;confirmed low volume.
--- NOTE | 2018-12-23 23:30 | NUR ---
pt.assessed.pt.presents quiescent affect;calm,somnolent.restraints in place.skin integrity assessed;intact.circulation palpable.
--- NOTE | 2018-12-23 23:37 | NUR ---
PATIENT CONTINUE SLEEPING AT THIS TIME
--- NOTE | 2018-12-23 23:55 | NUR ---
OBSERVATION PATIENT CONTINUE SLEEPING
--- NOTE | 2018-12-24 | NUR ---
pt.assessed.pt.presents affect;restless.in bed.v/s assessed;w/in normal limits;02-sat%=96%@room air.pt.repositioned. pt.offered fluids;apple juice.pt.has drunk the fluids. Addendum: 12/24/18 at 0404 by Landry Stoner RN o2-sat%=96%@room air;unlabored.
[2018-12-24 00:21] VITALS: BP_SYST 120
--- NOTE | 2018-12-24 00:25 | NUR ---
PATIENT AWAKE AT THIS TIME SCREAMMING AND TRY TO PULL HIS HANDS OUT OF THE WRIST RESTRAINS RN INCHARGED TO THE PATIENT CAME IN TO CHECK ON THE PATIENT
--- NOTE | 2018-12-24 00:30 | NUR ---
pt.assessed.pt.presents quiescent affect;calm,somnolent.general status stable.respiratory status table.unlabored.
--- NOTE | 2018-12-24 00:31 | NUR ---
PATIENT KEEP SCREAMMING AND GETTING AGGRESSIVE AT THIS TIME
[2018-12-24] MEDS: QUEtiapine FUMARATE 100 MG TABLET PO SCH ×2 (00:41→10:28)
--- NOTE | 2018-12-24 00:45 | NUR ---
i have administered seroquel;100mg po. have provided snack;pudding;apple sauce/juice;apple.pt.has consumed the food items w/out challenges;difficulty.
[2018-12-24] MEDS: MUPIROCIN 2% TOPICAL OINTMENT 22 GM TP SCH ×3 (00:51→21:29)
[2018-12-24] MEDS: IPRATROPIUM/ALBUTEROL SULFATE 3 ML AMPUL.NEB (DUONEB) INH SCH ×4 (01:00→19:59)
--- NOTE | 2018-12-24 01:00 | NUR ---
pt.assessed.pt. offered fluids;apple juice;pt.has drunk the fluids.general status stable.respiratory status stable.
--- NOTE | 2018-12-24 01:30 | NUR ---
pt.presents restless affect.pt.assessed for cleanliness.pt.has presents urine soiled linen.pt.cleaned.linen changed.
--- NOTE | 2018-12-24 01:40 | NUR ---
patient went back to sleep after we changed his linens rn incharged to the patient gave a mid night snack and some juiceafter that patient went back to sleep
--- NOTE | 2018-12-24 02:00 | NUR ---
pt.assessed.pt.presents quiescent affect;calm somnolent.pt.repositioned. Addendum: 12/24/18 at 0404 by Landry Stoner RN o2-sat%=96%@room air.
--- NOTE | 2018-12-24 02:03 | NUR ---
OBSERVATION PATIENT CONTINUE SLEEPING COMFORTABLE AT THIS TIME
--- NOTE | 2018-12-24 02:16 | NUR ---
Patient asleep, respirations even and unlabored, will monitor.
--- NOTE | 2018-12-24 02:30 | NUR ---
pt.assessed.pt.presents quiescent affect;calm,somnolent.general status stable.respiratory status stable@room air unlabored.
--- NOTE | 2018-12-24 02:30 | NUR ---
Patient continues to sleep, respirations even and unlabored, will monitor.
--- NOTE | 2018-12-24 02:47 | NUR ---
Patient asleep, respirations even and unlabored, will monitor.
--- NOTE | 2018-12-24 03:00 | NUR ---
pt.assessed.pt.presents quiescent affect;calm,somnolent.general status stable.respiratory status stable@room air; unlabored.
--- NOTE | 2018-12-24 03:30 | NUR ---
pt.assessed.pt.presents quiescent affect;calm,somnolent.general status stable.respiratory status stable@room air; unlabored.
--- NOTE | 2018-12-24 04:00 | NUR ---
pt.assessed.pt.presents quiescent affect;calm somnolent.pt.assessed for cleanliness.i have assessed the bladder per bladder scan; =100ml noted.
--- NOTE | 2018-12-24 04:02 | NUR ---
Patient continues to sleep, breathing even and unlabored
--- NOTE | 2018-12-24 04:10 | NUR ---
PATIENT SLEEPING BUT THERE IS TIME HE WOKE UP IN HIS DREAM TALKED AND SCREAMMED AND AGITATED
--- NOTE | 2018-12-24 04:30 | NUR ---
pt.assessed.pt.presents quiescent affect;calm,somnolent.general status stable.respiratory status stable@room air.
--- NOTE | 2018-12-24 04:56 | NUR ---
PATIENT CONTINUE SLEEPING
--- NOTE | 2018-12-24 05:00 | NUR ---
pt.assessed.pt.presents quiescent affect;calm.general status stable.respiratory status stable.
--- NOTE | 2018-12-24 05:30 | NUR ---
pt.presents affect;restless.agitated.pt.assessed for cleanliness.pt.cleaned.
--- NOTE | 2018-12-24 05:35 | NUR ---
PATIENT AWAKE SCREAMMING AND AGITATED RN AWARE OF THE PATIENT BEHAVIOUR PATIENT GOT CLEAN UP FOR THE SECOND TIMEBED LINENS AND NIGHT GOWN PILLOW CASE PATIENT CONTINUE ON WRIST RESTRAINS HIS BEHAVIOUR IS STILL TOO DANGEROUS TO HIMSELF AND OTHERS
--- NOTE | 2018-12-24 06:00 | NUR ---
pt.assessed.pt.presents affect;calm,somnolent.general status stable.respiratory status stable. pt.remained npo;diet status;us;abdomen to be performed this am;12/24/18.
--- NOTE | 2018-12-24 06:03 | NUR ---
PATIENT IS SLEEPING FOR SHORT PERIOD TIME AD HE WOKE UP SCREAMMED AND AGITATE MOST OF THE TIME
--- NOTE | 2018-12-24 06:11 | NUR ---
MY SHIFT IS OVER CONTINUE ON AM SHIFT
--- NOTE | 2018-12-24 06:30 | NUR ---
pt.assessed.affect;calm,somnolent.general status stable.respiratory status stable;unlabored. awaiting us;abdomen to be performed.
--- NOTE | 2018-12-24 06:31 | NUR ---
PT IN RESTRAIN AND THE SITTER BESIDE HIM
--- NOTE | 2018-12-24 06:45 | NUR ---
PT WHEN HE SLEEP HE SAY I WANT AND THE SITTER BESIDE HIM STILL PT HAVE RESTRAIN
--- NOTE | 2018-12-24 07:00 | NUR ---
PT STILL SLEEPING AND THE RAIL UP AND THE SITTER BESIDE HIM FOR SAFETY
--- NOTE | 2018-12-24 07:00 | NUR ---
pt.assessed.pt.presents quiescent affect;calm,somnolent.general status stable. respiratory status stable.awaiting us tech to arrive.cristi waters;gi@bedside assessing the pt.i have apprised ;la the us abdomen has yet to be attended to.
--- NOTE | 2018-12-24 07:16 | NUR ---
PT GET BREATHING TREATMENT AND THE SITTER BESIDE HIM
--- NOTE | 2018-12-24 07:30 | NUR ---
THE PT SNORING AND HAVE THE RESTRAINAND THE SITTER BESIDE HIM FOR SAFETY
--- NOTE | 2018-12-24 07:35 | NUR ---
INITIAL ROUNDS Received pt sleeping, pt wakes up with light stimuli, no s/s resp distres, no s/s pain or discomfort. Pt NPO for abd US this morning. Sitter at bedside for safety.
[2018-12-24 07:40] VITALS: BP_SYST 129
--- NOTE | 2018-12-24 07:45 | NUR ---
PT STILL SLEEPING
[2018-12-24 07:46] LABS: ALBUMIN 2.6 g/dL (3.4-4.8); CALCIUM 9.3 mg/dL (8.4-11.0); CREATININE 1.18 mg/dL (0.55-1.30); POTASSIUM 3.8 mmol/L (3.5-5.1); TOTAL BILIRUBIN 5.7 mg/dL (0.0-1.0)
[2018-12-24 07:57] LABS: BASOPHILS # (AUTO) 0.1 K/uL (0.0-0.2); BASOPHILS % (AUTO) 2.3 % (0.0-2.0); EOSINOPHILS # (AUTO) 0.2 K/uL (0.0-0.4); HEMATOCRIT 41.3 % (36-54); LYMPHOCYTES # (AUTO) 1.6 K/uL (1.0-5.5); LYMPHOCYTES % (AUTO) 34.9 % (20.5-51.5); MEAN CORPUSCULAR HEMOGLOBIN 26 pg (27-31); MEAN CORPUSCULAR HGB CONC 32 % (32-36); MEAN CORPUSCULAR VOLUME 82 fL (79.0-98.0); MONOCYTES # (AUTO) 0.6 K/uL (0.0-1.0); NEUTROPHILS # (AUTO) 2.1 K/uL (1.8-7.7); NEUTROPHILS % (AUTO) 44.8 % (40.0-70.0); PLATELET COUNT (AUTO) 213 K/uL (130-430); RED BLOOD CELL COUNT(AUTO) 5.07 MIL/uL (4.2-6.2); RED CELL DISTRIBUTION WIDTH 25.5 % (9.0-15.0)
--- NOTE | 2018-12-24 08:00 | NUR ---
PT STILL SLEEPING AND THE SITTER BESIDE HIM
[2018-12-24 08:06] LABS: WHITE BLOOD COUNT (AUTO) 4.6 K/uL (4.8-10.8)
--- NOTE | 2018-12-24 08:15 | NUR ---
PT GETTING TEST NOW AULTERSOUND NOW AND THE SITTER BESIDE HIM
--- NOTE | 2018-12-24 08:31 | NUR ---
OBSERVATION NOTES: Patient is lying down in bed with both eyes closed .will continue to monitor
--- NOTE | 2018-12-24 08:45 | NUR ---
pt so sleeping and still have restrain and the sitter beside him for safety
--- NOTE | 2018-12-24 09:00 | NUR ---
he open his eyes and closed right way and his moving alot and the sitter monitor him
--- NOTE | 2018-12-24 09:15 | NUR ---
pt sleeping he talk him self and he screaming you can understand him what he say and the sitter beside him
--- NOTE | 2018-12-24 09:30 | NUR ---
pt still sleepingand the sitter beside him
--- NOTE | 2018-12-24 09:46 | NUR ---
pt still sleeping and the sitter beside him
--- NOTE | 2018-12-24 10:00 | NUR ---
pt still sleeping and the sitter beside him
--- NOTE | 2018-12-24 10:15 | NUR ---
pt still sleeping still have the restrain and the watching him
--- NOTE | 2018-12-24 10:30 | NUR ---
his RN HER TO GIVE HIS MEDICATION AND THE SITTER WATCHING HIM
--- NOTE | 2018-12-24 10:43 | NUR ---
ROUNDS Pt sitting up in bed being fed his breakfast with aspiration precautions in place. No s/s resp distress, no c/o pain or discomfort. Sitter remains at bedside.
--- NOTE | 2018-12-24 10:45 | NUR ---
PT START EAT HIS BREAKFAST AND DRINK
--- NOTE | 2018-12-24 11:00 | NUR ---
PT WALK THE PATIENT INSIDE THE ROOM AND PUT HIM BACK IN HIS BED AND THE SITTER BESIDE HIM
--- NOTE | 2018-12-24 11:16 | NUR ---
pt still sleeping and the sitter beside him for safety
--- NOTE | 2018-12-24 11:30 | NUR ---
pt still sleeping and the sitter beside him
--- NOTE | 2018-12-24 11:45 | NUR ---
RN came to check the patient but the pt sleeping
[2018-12-24 12:00] VITALS: BP_SYST 138
--- NOTE | 2018-12-24 12:00 | NUR ---
PT STILL SLEEPING HE LOOK COMFORTABLY AND THE BESIDE HIM
--- NOTE | 2018-12-24 12:15 | NUR ---
PT ATE SOME FROM LUNCH AND HE WENT BACK TO SLEEP
--- NOTE | 2018-12-24 12:30 | NUR ---
he is screaming and he went back to sleep and the sitter beside him
--- NOTE | 2018-12-24 12:45 | NUR ---
pt still snoring he look comfortably and the sitter beside him
--- NOTE | 2018-12-24 12:59 | NUR ---
he still sleeping and the sitter monitor him
--- NOTE | 2018-12-24 13:16 | NUR ---
Patient restless, pulling at restraints-pt kept moving and was shouting during bladder scan attempt. director child development center now trying to place an IV for IVF. Pt mumbling and restless.
--- NOTE | 2018-12-24 13:31 | NUR ---
Pt restless, pulling at restraints, kicking feet on bed, talking and shouting to unseen others. Then pt falls asleep for a minute, then wakes up shouting at unseen others.
--- NOTE | 2018-12-24 13:45 | NUR ---
pt is awake he is screaming and crying
[2018-12-24] MEDS: 0.45% NACL 1,000 ML IV SCH (13:54)
--- NOTE | 2018-12-24 14:02 | NUR ---
he start scream and cry and he went back to sleep and the sitter beside him
--- NOTE | 2018-12-24 14:15 | NUR ---
he is screaming ad still the pt have restrain ad the sitter beside him
[2018-12-24] MEDS: DIPHENHYDRAMINE INJ 50 MG/ML VIAL IM PRN ×2 (14:25→23:45)
[2018-12-24] MEDS: HALOPERIDOL LACTATE 5 MG/ML VIAL IM PRN (14:26)
--- NOTE | 2018-12-24 14:30 | NUR ---
HE WENT BACK TO SLEEP AFTER THE RN GIVE HIM SHOT
--- NOTE | 2018-12-24 14:42 | NUR ---
THE SCURITY CAME TO SCAN THE PT
--- NOTE | 2018-12-24 14:45 | NUR ---
HE IS SLEEPING AND THE THE SITTER BESIDE HIM
--- NOTE | 2018-12-24 15:00 | NUR ---
HE IS SLEEPING AND THE SITTER BESIDE HIM
--- NOTE | 2018-12-24 15:03 | NUR ---
HE IS SLEEPING BUT HE IS MOVING alot
--- NOTE | 2018-12-24 15:14 | NUR ---
Nutrition F/U RD reviewed pt's current EMR including diet Hx, physician notes, nursing notes, pertinent labs/meds/procedures, care trends and care activity. Current Diet Order: Pureed Cardiac Low CHOL Low Fat 2gm Na diet Subjective information: Pt remains on 5150 hold. Per RN, pt continues to receive medication for agitation and sleeps most of the time. Pt is now a feeder and was put on pureed diet for ease of feeding. Per EMR, pt w/ poor PO intake. Current PO intake: Poor 25% average of 3 meals ESTIMATED NUTRITIONAL REQUIREMENTS CALORIES/DAY: 6298-5583 kcal/day (25-30 kcal/kg IBW for Obesity) PROTEIN/DAY: 71-134 gm/day (.8-1.5 gm/kg IBW for Renal Dz and COPD) FLUID/DAY: per MD (Renal Dz) D: 1. Morbid Obesity r/t inability to access healthier food choices AEB possible consumption of high calorie food and beverage from fast food restaurants and convenient stores, homelessness and BMI 40 kg/m2. (*ongoing) 2. Inadequate nutrient intake r/t medication intake AEB PO intake not meeting 75% of estimated needs and nursing staff report. (*new) I: Recommend: continuing Pureed Cardiac Low CHOL Low Fat 2gm Na diet. ONS Ensure Enlive comes standard w/ pureed diet and provides additional 1050 kcal and 60 gm protein daily. M: Monitor appetite and PO intake w/ goal of pt meeting at least 75% of estimated nutritional needs, labs trending WNL, normal GI function, skin integrity/wt maintenance. E: RD to F/U within 3-5 days PEPPER [facility]ONG
--- NOTE | 2018-12-24 15:18 | NUR ---
Dietitian Recommendation I: Recommend: continuing Pureed Cardiac Low CHOL Low Fat 2gm Na diet. ONS Ensure Enlive comes standard w/ pureed diet and provides additional 1050 kcal and 60 gm protein daily. FPC, RD
--- NOTE | 2018-12-24 15:30 | NUR ---
he is moving alot and he is crying
--- NOTE | 2018-12-24 15:46 | NUR ---
he screaming and he go back to sleep
[2018-12-24 15:59] VITALS: BP_SYST 141
--- NOTE | 2018-12-24 16:01 | NUR ---
he talk in incorrectly you can understand him and still th restrain
--- NOTE | 2018-12-24 16:05 | NUR ---
ROUNDS Pt remains restless, pulling at restraints at times, talking to himself and unseen others. Sitter remains at bedside for safety.
--- NOTE | 2018-12-24 16:16 | NUR ---
he sleeping and the sitter beside him
--- NOTE | 2018-12-24 16:30 | NUR ---
he is sleeping and the sitter watching him for safety
--- NOTE | 2018-12-24 16:45 | NUR ---
he is sleeping still have restrain and the sitter monitor him
--- NOTE | 2018-12-24 17:00 | NUR ---
he sleeping in his bed [id number] and the sitter monitor him
--- NOTE | 2018-12-24 17:15 | NUR ---
still sleeping he look comfortably
--- NOTE | 2018-12-24 17:30 | NUR ---
he wake up he is screaming and crying and he went back to sleep
--- NOTE | 2018-12-24 17:45 | NUR ---
the doctor came to talk to him and the sitter beside him
--- NOTE | 2018-12-24 18:01 | NUR ---
pt refuse to eat and he went back to sleep and the sitter beside him
--- NOTE | 2018-12-24 18:15 | NUR ---
pt still sleeping ad the sitter beside him
--- NOTE | 2018-12-24 18:30 | NUR ---
pt still sleeping and the sitter beside him
--- NOTE | 2018-12-24 18:45 | NUR ---
pt still sleeping and the sitter beside him
--- NOTE | 2018-12-24 18:57 | NUR ---
pt still sleeping
--- NOTE | 2018-12-24 19:27 | NUR ---
CLOSING NOTE Pt remains restless, shouting at unseen others, no s/s resp distress, no c/o pain or discomfort. Contact isolation precautions maintained throughout shift. Sitter remains at bedside-endorsed to nightman MIRIAM Zhou.
--- NOTE | 2018-12-24 19:52 | NUR ---
[facility] Faxed new [phone] to Mitch at [phone] , needed for psychiatric placement.
[2018-12-24 20:00] VITALS: BP_SYST 141
--- NOTE | 2018-12-24 20:00 | NUR ---
LYING IN BED, MUMBLING. RESTLESS. YELLS AT TIMES PARKER SOFT WRISTRESTRAINTS IN PLACE FOR SAFETY.
--- NOTE | 2018-12-24 20:15 | NUR ---
DOZES ON AND OFF.
--- NOTE | 2018-12-24 20:30 | NUR ---
BOUTS OF RESTLESSNESS. TAGS ON RESTRAINTS.
--- NOTE | 2018-12-24 20:45 | NUR ---
FREQUENT INSTRUCTIONS GIVEN. ATTEMPTS TO SIT IN BED PULLING ON RESTRAINTS.
--- NOTE | 2018-12-24 21:00 | NUR ---
TAKES SIPS OF ICED WATER. ABLE TO REPOSITION SELF.
--- NOTE | 2018-12-24 21:15 | NUR ---
ASLEEP, SNORING. HOB UP TO COMFORT.
--- NOTE | 2018-12-24 21:29 | NUR ---
UNABLE TO SCAN BACTROBAN, SCANNER NOT WORKIN.
--- NOTE | 2018-12-24 21:30 | NUR ---
ATE CHOCOLATE PUDDING, AND DRANK SOME ICED WATER
--- NOTE | 2018-12-24 21:45 | NUR ---
ASLEEP. TALKS IN HIS SLEEP.
--- NOTE | 2018-12-24 22:00 | NUR ---
MOUTH BREATHER. SNORES.
--- NOTE | 2018-12-24 22:15 | NUR ---
ROMMEL. INSISTING ON DRINKING ICED WATER. SPEECH PRESSURED, GARBLED AND LOUD.
--- NOTE | 2018-12-24 22:30 | NUR ---
VOMITED UP SOME WATER. GOWN CHANGED
--- NOTE | 2018-12-24 22:45 | NUR ---
RESTLESS. DISROBES. SITS UP IN BED WITH LEGS OVER THE RAILS. FREQUENT, REMINDER, INSTRUCTIONS, REPOSITIONING AND INTERVENTIONS.
--- NOTE | 2018-12-24 23:00 | NUR ---
TAKES SHORT NAPS. YELLS WHILE SLEEPING, SEEMS TO HAVE A FRIGHTFUL NIGHTMARE.
--- NOTE | 2018-12-24 23:15 | NUR ---
BOUTS OF RESTLESSNESS. ANTSY. DISROBES. NON-COMPLIANT.
--- NOTE | 2018-12-24 23:30 | NUR ---
STILL DISROBES. RESTLESS. BIZARRE BEHAVIOR. TALKING JIBBERISH.
[2018-12-24] MEDS: LORazepam 2 MG/ML VIAL IM PRN (23:44)
--- NOTE | 2018-12-24 23:45 | NUR ---
ATIVAN 2 MG IM AND BENADRYL 50 MG IM GIVEN FOR SEDATION AND SLEEP.
--- NOTE | 2018-12-25 | NUR ---
DOZES ON AND OFF. STILL SITS UP IN BED. SCREAMING AND YELLS DURING EPISODES OF NIGHTMARES.
--- NOTE | 2018-12-25 00:15 | NUR ---
SLEPT INTERMITTENTLY. PULSES PALPABLE.
[2018-12-25 00:26] VITALS: BP_SYST 141
--- NOTE | 2018-12-25 00:30 | NUR ---
TANGENTIAL. LIKE TALKING TO SOMEONE IN HIS SLEEP. THEN WAKES UP SITTING UP IN BED.
--- NOTE | 2018-12-25 00:45 | NUR ---
INTERCHANGEABLE BOUTS OF CALMNESS AND BOUTS OF RESTLESSNESS.
--- NOTE | 2018-12-25 01:00 | NUR ---
INAPPROPRIATE RAMBLINGS
--- NOTE | 2018-12-25 01:15 | NUR ---
RAMBLING. DISROBES INSPITE OF INSTRUCTIONS NOT TO. SHOUTS.
--- NOTE | 2018-12-25 01:30 | NUR ---
RESTLESS. YELLS INCOHERENTLY.
--- NOTE | 2018-12-25 02:00 | NUR ---
KICKED ON BOTTOM BASEBOARD OF BED SLIGHTLY BREAKING BASEBOARD. HALDOL 5 MG IM GIVEN FOR AGITATION.
[2018-12-25] MEDS: HALOPERIDOL LACTATE 5 MG/ML VIAL IM PRN ×2 (02:06→23:24)
--- NOTE | 2018-12-25 02:15 | NUR ---
RESTLESS. TALKING LOUDLY IN SLEEP.
--- NOTE | 2018-12-25 02:30 | NUR ---
STILL RESTLESS. OCCASIONAL MOIST SEMI-PRODUCTIVE COUGH NOTED. SWALLOWS EXPECTORATION.
[2018-12-25] MEDS: 0.45% NACL 1,000 ML IV SCH (02:45)
--- NOTE | 2018-12-25 02:45 | NUR ---
TAKES SHORT NAPS. CALMER.
--- NOTE | 2018-12-25 03:00 | NUR ---
SLEEPING FOR LONGER PERIODS OF TIME. NO SOB, DISTRESS PAIN.
--- NOTE | 2018-12-25 03:20 | NUR ---
SLEEPING, NO SOB, STABLE, ON BILATERAL WRIST RESTRAIN, NO SIGN OF INJURY. PT KICK THE LEFT FOOT PART OF THE BED AND IT FELL OFF. WILL CONTINUE TO MONITOR AT BEDSIDE.
--- NOTE | 2018-12-25 03:36 | NUR ---
SLEEPING, STABLE, NO SOB. NOT AGITATED. WILL CONTINUE TO MONITOR AT BEDSIDE.
--- NOTE | 2018-12-25 03:52 | NUR ---
SLEEPING, STABLE, NO SOB. NOT AGITATED. WILL CONTINUE TO MONITOR AT BEDSIDE.
--- NOTE | 2018-12-25 04:00 | NUR ---
ASLEEP. ABLE TO REPOSITION SELF.
--- NOTE | 2018-12-25 04:15 | NUR ---
DOZES ON AND OFF. RESTLESS AT TIMES.
--- NOTE | 2018-12-25 04:30 | NUR ---
YELLS. SEEMS TO HALLUCINATES. CALLING NAME YURI LOUDLY. SPEECH GARBLED.
--- NOTE | 2018-12-25 04:45 | NUR ---
SITS UP IN BED. RAMBLING.
--- NOTE | 2018-12-25 05:00 | NUR ---
SLEPT INTERMITTENTLY. RESTLESS.
--- NOTE | 2018-12-25 05:15 | NUR ---
AWAKE. ESCALATING AGITATION NOTED. ATTEMPTED TO CALM PT.
--- NOTE | 2018-12-25 05:30 | NUR ---
AGITATED. ABLE TO BREAK OFF ONE RESTRAINT. ANOTHER ONE PUT UN PLACE. SECURITY CALLED. PT WANDED. INCONTINENT OF URINE. CLEANED. COMPLETE LINEN CHANGE DONE.
--- NOTE | 2018-12-25 05:45 | NUR ---
GRIMACING. TEARFUL. AGITATED STILL. LOUD.
--- NOTE | 2018-12-25 06:00 | NUR ---
STILL AGITATED. YELLING. SPEECH GARBLED. TEARFUL AT TIMES. PULSES PALPABLE. MOANS. GROANS. WORD SALAD. REMAINS IN GUARDED CONDITION.
[2018-12-25 06:06] LABS: HEPATITIS A AB, IgM Negative (Negative); HEPATITIS B CORE AB, IgM Negative (Negative); HEPATITIS B SURFACE AG Negative (Negative)
--- NOTE | 2018-12-25 06:15 | NUR ---
PATIENT IS SLEEPING IN BED WILL CONTINUE TO MONITOR.
[2018-12-25 06:17] LABS: BASOPHILS # (AUTO) 0.1 K/uL (0.0-0.2); BASOPHILS % (AUTO) 2.2 % (0.0-2.0); EOSINOPHILS # (AUTO) 0.2 K/uL (0.0-0.4); EOSINOPHILS % (AUTO) 3.2 % (0.0-4.0); HEMATOCRIT 41.2 % (36-54); HEMOGLOBIN 13.2 g/dL (14.0-18.0); LYMPHOCYTES # (AUTO) 1.3 K/uL (1.0-5.5); LYMPHOCYTES % (AUTO) 23.6 % (20.5-51.5); MEAN CORPUSCULAR HEMOGLOBIN 26 pg (27-31); MEAN CORPUSCULAR HGB CONC 32 % (32-36); MEAN CORPUSCULAR VOLUME 81 fL (79.0-98.0); MONOCYTES # (AUTO) 0.6 K/uL (0.0-1.0); MONOCYTES % (AUTO) 10.4 % (1.7-9.3); NEUTROPHILS # (AUTO) 3.4 K/uL (1.8-7.7); NEUTROPHILS % (AUTO) 60.6 % (40.0-70.0); PLATELET COUNT (AUTO) 212 K/uL (130-430); RED BLOOD CELL COUNT(AUTO) 5.06 MIL/uL (4.2-6.2); WHITE BLOOD COUNT (AUTO) 5.6 K/uL (4.8-10.8)
--- NOTE | 2018-12-25 06:30 | NUR ---
PATIENT IS SLEEPING IN BED, WAKES INTERMITTENTLY, SPEECH IS GARBLED. WILL CONTINUE TO MONITOR.
[2018-12-25 06:41] LABS: ALBUMIN 2.7 g/dL (3.4-4.8); CALCIUM 9.3 mg/dL (8.4-11.0); CREATININE 1.13 mg/dL (0.55-1.30); TOTAL BILIRUBIN 6.1 mg/dL (0.0-1.0)
--- NOTE | 2018-12-25 06:45 | NUR ---
PATIENT IS SLEEPING IN BED, WAKES INTERMITTENTLY ASKED FOR FOOD EXPLAINED TO HIM BREAKFAST WILL BE COMING IN 45 MINUTES. SPEECH IS GARBLED, NURSE IS BED SIDE. WILL CONTINUE TO MONITOR.
[2018-12-25] MEDS: IPRATROPIUM/ALBUTEROL SULFATE 3 ML AMPUL.NEB (DUONEB) INH SCH ×3 (07:00→19:00)
--- NOTE | 2018-12-25 07:01 | NUR ---
PATIENT IS SLEEPING IN BED, WAKES INTERMITTENTLY, SPEECH IS GARBLED. WILL CONTINUE TO MONITOR. NURSE IS BEDSIDE.
[2018-12-25] MEDS: QUEtiapine FUMARATE 100 MG TABLET PO SCH ×3 (07:03→19:11)
--- NOTE | 2018-12-25 07:15 | NUR ---
PATIENT IS SLEEPING IN BED, WAKES INTERMITTENTLY, SPEECH IS GARBLED. WILL CONTINUE TO MONITOR. NURSE IS BEDSIDE.
--- NOTE | 2018-12-25 07:32 | NUR ---
PATIENT IS SLEEPING IN BED, YELLS IN HIS SLEEP, SPEECH IS GARBLED. WILL CONTINUE TO MONITOR
--- NOTE | 2018-12-25 07:45 | NUR ---
PATIENT IS SLEEPING IN BED, IS RESTLESS. WILL CONTINUE TO MONITOR. NURSE BEDSIDE TAKING VITALS.
[2018-12-25 08:00] VITALS: BP_SYST 144
[2018-12-25] MEDS ORDERED: OLANZapine 10 MG TABLET PO SCH (08:00)
--- NOTE | 2018-12-25 08:00 | NUR ---
PATIENT IS SLEEPING IN BED, IS RESTLESS. WILL CONTINUE TO MONITOR.
--- NOTE | 2018-12-25 08:00 | NUR ---
initial notes rec patient sleeping soundly and snores at times ,or will be talking or shout. on dolores restaints and checked for circulation. resp easy and unlabored. no sob noted. with a direct observer in the room. ivf infusing well. no infiltration noted. will continue to monitor patient closely
--- NOTE | 2018-12-25 08:15 | NUR ---
PATIENT IS SLEEPING IN BED. WILL CONTINUE TO MONITOR.
--- NOTE | 2018-12-25 08:31 | NUR ---
PATIENT IS SLEEPING IN BED, WILL CONTINUE TO MONITOR.
--- NOTE | 2018-12-25 08:45 | NUR ---
Patient is awake wants to go to the bathroom. Patient walked with assistance to the bathroom. Restraints removed for bathroom.
--- NOTE | 2018-12-25 08:59 | NUR ---
Psychiatric Hold/Attempting placement Noted new [phone] hold. Faxed patient's information to the [facility]. Addendum: 12/25/18 at 0958 by Aniya Narayanan LCSW Phoned the call center and spoke with Feroz who confirmed the fax was received and he is actively working on placement. Notified him that patient has been off restraints for one hour. Asked Love PINEDA to notify me if patient needs to be put back on restraints. Addendum: 12/25/18 at 1522 by Aniya Narayanan LCSW Feroz has been providing updates but no bed has been found yet. They have reached out to multiple facilities but patient has been declined due to lack of beds or medical acuity. They are continuing to follow up and work on placement.
--- NOTE | 2018-12-25 09:00 | NUR ---
Patient returned from the bathroom with assistance and wants to eat breakfast. Patient is sitting on the edge of the bed eating breakfast.
[2018-12-25] MEDS: MUPIROCIN 2% TOPICAL OINTMENT 22 GM TP SCH ×2 (09:11→21:00)
--- NOTE | 2018-12-25 09:15 | NUR ---
Patient is done eating and went to sleep in bed, no distress noted. Restraints remain off, patient agrees to cooperate. Will continue to monitor.
--- NOTE | 2018-12-25 09:31 | NUR ---
Patient is sleeping in bed, no distress noted. Restraints remain off. Will continue to monitor.
--- NOTE | 2018-12-25 09:45 | NUR ---
Patient is sleeping in bed, no distress noted. Restraints remain off. Will continue to monitor.
--- NOTE | 2018-12-25 10:00 | NUR ---
Patient is sleeping in bed, no distress noted. Restraints remain off. Will continue to monitor.
--- NOTE | 2018-12-25 10:15 | NUR ---
Patient is sleeping in bed, no distress noted. Restraints remain off. Will continue to monitor.
--- NOTE | 2018-12-25 10:32 | NUR ---
Patient is sleeping in bed, no distress noted. Restraints remain off. Will continue to monitor.
--- NOTE | 2018-12-25 10:47 | NUR ---
Patient walked with physical therapy. Patient is back in bed sleeping, restraints remain off. Will continue to monitor.
--- NOTE | 2018-12-25 11:00 | NUR ---
Patient is sleeping in bed, no distress noted. Restraints remain off. Will continue to monitor.
--- NOTE | 2018-12-25 11:15 | NUR ---
Patient is sleeping in bed, is restless. Restraints remain off. Will continue to monitor.
--- NOTE | 2018-12-25 11:30 | NUR ---
Patient is sleeping in bed, isv restless. Restraints remain off. Will continue to monitor.
--- NOTE | 2018-12-25 11:46 | NUR ---
Patient is sleeping in bed, is restless. Restraints remain off, sits up intermittently. Will continue to monitor.
--- NOTE | 2018-12-25 12:02 | NUR ---
Patient is sleeping in bed, is restless. Restraints remain off. Will continue to monitor.
--- NOTE | 2018-12-25 12:15 | NUR ---
Patient is sleeping in bed, is restless. Restraints remain off. Will continue to monitor.
--- NOTE | 2018-12-25 12:30 | NUR ---
Patient is sitting in up in bed. Restraints remain off. Will continue to monitor.
[2018-12-25] MEDS ORDERED: QUEtiapine FUMARATE 100 MG TABLET PO ONE (12:45)
--- NOTE | 2018-12-25 12:45 | NUR ---
Patient is sleeping in bed, is restless. Restraints remain off. Will continue to monitor.
[2018-12-25 12:48] VITALS: BP_SYST 144
--- NOTE | 2018-12-25 13:00 | NUR ---
Patient received breathing treatment from RT, patient is sleeping in bed, is restless. Restraints remain off. Will continue to monitor.
--- NOTE | 2018-12-25 13:15 | NUR ---
Patient is sleeping in bed, is restless. Restraints remain off. Will continue to monitor.
--- NOTE | 2018-12-25 13:33 | NUR ---
Patient is sleeping in bed. Restraints remain off. Will continue to monitor.
--- NOTE | 2018-12-25 14:00 | NUR ---
rounds continue to sleep soundly and turn to his side every now and then. no sob noted.
--- NOTE | 2018-12-25 14:20 | NUR ---
Patient is sleeping in bed, is restless. Restraints remain off. Will continue to monitor.
--- NOTE | 2018-12-25 14:31 | NUR ---
Patient is sleeping in bed. Restraints remain off. Will continue to monitor.
--- NOTE | 2018-12-25 14:47 | NUR ---
Patient is sleeping in bed. Restraints remain off. Will continue to monitor.
--- NOTE | 2018-12-25 15:00 | NUR ---
Patient is sleeping in bed. Restraints remain off. Will continue to monitor.
--- NOTE | 2018-12-25 15:15 | NUR ---
Patient is sleeping in bed. Restraints remain off. Will continue to monitor.
--- NOTE | 2018-12-25 15:30 | NUR ---
Patient is sleeping in bed. Restraints remain off. Will continue to monitor.
--- NOTE | 2018-12-25 15:45 | NUR ---
Patient is sleeping in bed. Restraints remain off. Will continue to monitor.
--- NOTE | 2018-12-25 16:00 | NUR ---
Patient is sleeping in bed. Restraints remain off. Will continue to monitor.
--- NOTE | 2018-12-25 16:00 | NUR ---
rounds sleeping soundly without the restrains at this time. direct observer at bedside. talking to himself at intervals while asleep
--- NOTE | 2018-12-25 16:15 | NUR ---
Patient is sleeping in bed. Restraints remain off. Will continue to monitor.
[2018-12-25 16:26] VITALS: BP_SYST 137
--- NOTE | 2018-12-25 16:30 | NUR ---
Patient is sleeping in bed. Restraints remain off. Will continue to monitor.
--- NOTE | 2018-12-25 16:45 | NUR ---
Patient is sleeping in bed. Restraints remain off. Nurse making rounds. Will continue to monitor.
--- NOTE | 2018-12-25 17:00 | NUR ---
Patient is sleeping in bed. Restraints remain off. Will continue to monitor.
--- NOTE | 2018-12-25 17:15 | NUR ---
Patient is sleeping in bed. Restraints remain off. Will continue to monitor.
--- NOTE | 2018-12-25 17:30 | NUR ---
Patient is sleeping in bed. Restraints remain off. Will continue to monitor.
--- NOTE | 2018-12-25 17:45 | NUR ---
Patient is sleeping in bed. Restraints remain off. Will continue to monitor.
--- NOTE | 2018-12-25 18:00 | NUR ---
Patient is sleeping in bed. No distress noted. Restraints remain off. Will continue to monitor.
--- NOTE | 2018-12-25 18:15 | NUR ---
PT IS LAYING IN BED SLEEPING AND RESTING COMFORTABLY. CONTINUES TO MUMBLE BUT STILL SLEEPING. RESTRAINTS REMAIN OFF. WILL CONTINUE TO MONITOR.
--- NOTE | 2018-12-25 18:30 | NUR ---
PT WOKE UP AND SAT IN BED. STATED HE WAS HUNGRY SO I HELPED HIM WITH HIS DINNER TRAY. PT ATE AND HANDED ME BACK TRAY. I GAVE HIM DRINKS THAT WERE PROVIDED AND OFFERED HIM THE URINAL. PT DID NOT HAVE TO PEE AND WANTED TO GO BACK AND LAY DOWN. PT IS RESTING COMFORTABLY AND LAYING IN BED. RESTRAINTS REMAIN OFF. WILL CONTINUE TO MONITOR.
--- NOTE | 2018-12-25 18:45 | NUR ---
PT IS LAYING IN BED SLEEPING AND RESTING COMFORTABLY. CONTINUES TO MUMBLE BUT STILL SLEEPING. RESTRAINTS REMAIN OFF. WILL CONTINUE TO MONITOR.
--- NOTE | 2018-12-25 19:00 | NUR ---
PT IS LAYING IN BED SLEEPING AND RESTING COMFORTABLY. CONTINUES TO MUMBLE BUT STILL SLEEPING. RESTRAINTS REMAIN OFF. NURSE IS AT BEDSIDE PASSING MEDICATION.WILL CONTINUE TO MONITOR.
--- NOTE | 2018-12-25 19:15 | NUR ---
PT IS LAYING IN BED SLEEPING AND RESTING COMFORTABLY. CONTINUES TO MUMBLE BUT STILL SLEEPING. NURSE IS AT BEDSIDE. RESTRAINTS REMAIN OFF. WILL CONTINUE TO MONITOR.
--- NOTE | 2018-12-25 19:30 | NUR ---
PT IS LAYING IN BED SLEEPING AND RESTING COMFORTABLY. CONTINUES TO MUMBLE BUT STILL SLEEPING. RESTRAINTS REMAIN OFF. WILL CONTINUE TO MONITOR.
--- NOTE | 2018-12-25 19:45 | NUR ---
PT IS LAYING IN BED SLEEPING AND RESTING COMFORTABLY. CONTINUES TO MUMBLE BUT STILL SLEEPING. RESTRAINTS REMAIN OFF. WILL CONTINUE TO MONITOR.
--- NOTE | 2018-12-25 19:50 | NUR ---
Initial note: Received report from akira RN. Patient is laying in bed, no acute distress noted. Alert and oriented to name only. Tolerating room air. Patient was received without an IV site. Per akira RN, patient had pulled it out and is refusing re-insertion. Restraints remain off. Direct observation in place, 1:1 sitter to remain at bedside. Bed locked in lowest position, side rails raised, bed alarm on. 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 Will continue with plan of care.
[2018-12-25 20:00] VITALS: BP_SYST 147
--- NOTE | 2018-12-25 20:00 | NUR ---
pt is sitting down resting in bed. restraints remain off.pt continues to mumble. will continue to monitor.
[2018-12-25] MEDS: IPRATROPIUM/ALBUTEROL SULFATE 3 ML AMPUL.NEB (DUONEB) INH PRN (20:11)
--- NOTE | 2018-12-25 20:15 | NUR ---
pt is awake and asked for breathing treatment. RT is currently at bedside. will continue to monitor.
--- NOTE | 2018-12-25 20:30 | NUR ---
PT IS LAYING IN BED SLEEPING AND RESTING COMFORTABLY. CONTINUES TO MUMBLE BUT STILL SLEEPING. RESTRAINTS REMAIN OFF. WILL CONTINUE TO MONITOR.
--- NOTE | 2018-12-25 20:45 | NUR ---
PT IS LAYING IN BED SLEEPING AND RESTING COMFORTABLY. CONTINUES TO MUMBLE BUT STILL SLEEPING. RESTRAINTS REMAIN OFF. WILL CONTINUE TO MONITOR.
[2018-12-25] MEDS ORDERED: QUEtiapine FUMARATE 100 MG TABLET PO SCH (21:00)
--- NOTE | 2018-12-25 21:00 | NUR ---
PT IS LAYING IN BED SLEEPING AND RESTING COMFORTABLY. CONTINUES TO MUMBLE BUT STILL SLEEPING. RESTRAINTS REMAIN OFF. WILL CONTINUE TO MONITOR.
--- NOTE | 2018-12-25 21:15 | NUR ---
PT IS LAYING IN BED SLEEPING AND RESTING COMFORTABLY. CONTINUES TO MUMBLE BUT STILL SLEEPING. RESTRAINTS REMAIN OFF. WILL CONTINUE TO MONITOR.
--- NOTE | 2018-12-25 21:30 | NUR ---
PT IS LAYING IN BED SLEEPING AND RESTING COMFORTABLY. CONTINUES TO MUMBLE AND AT TIMES YELLS OUT WORDS. RESTRAINTS REMAIN OFF. WILL CONTINUE TO MONITOR.
--- NOTE | 2018-12-25 21:45 | NUR ---
PT IS LAYING IN BED SLEEPING AND RESTING COMFORTABLY. CONTINUES TO MUMBLE AND AT TIMES YELLS OUT WORDS. RESTRAINTS REMAIN OFF. WILL CONTINUE TO MONITOR.
--- NOTE | 2018-12-25 22:00 | NUR ---
PT IS LAYING IN BED SLEEPING AND RESTING COMFORTABLY. CONTINUES TO MUMBLE AND AT TIMES YELLS OUT WORDS. RESTRAINTS REMAIN OFF. WILL CONTINUE TO MONITOR.
--- NOTE | 2018-12-25 22:04 | NUR ---
Rounds: Patient is laying on his side in bed. No acute distress noted. Respirations are even, unlabored on room air. Direct observation in place, sitter at bedside. Safety, fall contact iso precautions in place. Will continue to monitor.
--- NOTE | 2018-12-25 22:15 | NUR ---
PT IS SITTING AT END OF THE BED. HE IS MUMBLING AND IN AND OUT OF SLEEP. I OFFERED HIM WATER. PT DRANK WATER AND JUICE THAT WAS PROVIDED. PT WENT BACK INTO BED AND IS LAYING DOWN MUMBLING AND YELLING OUT WORDS. RESTRAINTS REMAIN OFF. WILL CONTINUE TO MONITOR.
--- NOTE | 2018-12-25 22:30 | NUR ---
PT IS LAYING IN BED SLEEPING AND RESTING COMFORTABLY. CONTINUES TO MUMBLE AND AT TIMES YELLS OUT WORDS. RESTRAINTS REMAIN OFF. WILL CONTINUE TO MONITOR.
--- NOTE | 2018-12-25 22:45 | NUR ---
PT IS LAYING IN BED SLEEPING AND RESTING COMFORTABLY. CONTINUES TO MUMBLE AND AT TIMES YELLS OUT WORDS. RESTRAINTS REMAIN OFF. WILL CONTINUE TO MONITOR.
--- NOTE | 2018-12-25 23:00 | NUR ---
PT IS LAYING IN BED IN AND OUT OF SLEEP. HE CONTINUES TO MUMBLE AND AT TIMES YELLS OUT WORDS.RESTRAINTS REMAIN OFF. WILL CONTINUE TO MONITOR.
--- NOTE | 2018-12-25 23:15 | NUR ---
PT IS LAYING IN BED IN AND OUT OF SLEEP. HE CONTINUES TO MUMBLE AND AT TIMES YELLS OUT WORDS. RESTRAINTS REMAIN OFF. WILL CONTINUE TO MONITOR.
[2018-12-25] MEDS: DIPHENHYDRAMINE INJ 50 MG/ML VIAL IM PRN (23:24)
[2018-12-25] MEDS: LORazepam 2 MG/ML VIAL IM PRN (23:25)
--- NOTE | 2018-12-25 23:30 | NUR ---
PT IS AWAKE AND SITTING AT THE END OF THE BED. NURSE IS AT BEDSIDE PASSING MEDICATIONS. VITALS WERE TAKEN AND WILL BE RECORDED. RESTRAINTS REMAIN OFF. WILL CONTINUE TO MONITOR.
--- NOTE | 2018-12-25 23:32 | NUR ---
Agitation: Patient is sitting up in bed yelling, attempted to get out of bed. Administered PRN Ativan, Benadryl, and Haldol intramuscularly for agitation. No adverse effects noted. Direct observation in place. Safety, fall, contact iso precautions in place. Will continue to monitor.
[2018-12-25 23:38] VITALS: BP_SYST 152
--- NOTE | 2018-12-26 00:15 | NUR ---
PT WAS VERY IRRITATED NURSES WAS HELPING HIM TO COME DOWN,SECURITY CAME TO SCAN THE PT
--- NOTE | 2018-12-26 00:30 | NUR ---
PT TRY TO GET UP AND URINE ON THE FLOOR;HOUSE KEEPER CAME TO MOP THE FLOOR KEEP MONITORING
--- NOTE | 2018-12-26 00:45 | NUR ---
PT TURNS AROUND EVERY SECOND HE SITS UP AND LAYS DOWN ALSO,RESPIRATORY TREATMENT CAME,PT REMOVE THE BREATHING I TRY TO HOLD IT FOR HIM HE REFUSE;RT CAME BACK AND TURN IT OFF.KEEP MONITORING
[2018-12-26] MEDS: IPRATROPIUM/ALBUTEROL SULFATE 3 ML AMPUL.NEB (DUONEB) INH SCH ×4 (00:50→20:19)
--- NOTE | 2018-12-26 01:00 | NUR ---
PT ITS UP AND DOWN ON BED TURNS AROUND LAYS ONHIS RIGHT SIDE SIDE FIRST AFTER SECONDS TURNS ON HIS LEFT REMOVED BLANKETS KEEP MONITORING
--- NOTE | 2018-12-26 01:21 | NUR ---
PT TRIED TO GET OUT OF BED I OFFERED A URINAL HE TRY BUT HE DID NOT URINE,PT TRY TO GET OUT AGAIN SLIDE DOWN TO TO THE FEET SIDE ON BED HE SITS FOR A MIN I OFFERED WATER HE DRINKS 2 CUPS AND HALF OF JUICE THEN WHEN BACK TO LAY DOWN KEEP MONITORING
--- NOTE | 2018-12-26 01:30 | NUR ---
RN IN CHARGED BROUGHT MORE WATER FOR THE PT,HE IS SLEEPING ON HIS LEFT SIDE KEEP MONITORING
--- NOTE | 2018-12-26 01:45 | NUR ---
PT IS TALKING WHILE LAYING DOWN,PT GOT UP AGAIN PUT HIS LEGS OUT OF THE BED I HELPED HIM TO LAY DOWN HE WHEN BACK TO SLEEP AGAIN,RN IN CHARGED CAME TO CHECK ON THE PT,KEEP MONITORIG
--- NOTE | 2018-12-26 02:00 | NUR ---
PT TRIED TO GET OUT OF THE BED AGAIN SITTING DOWN ON THE FEET SIDE ,I OFFERED WATER HE DRINK ONE CUP,ALSO OFFERED A URINAL,HE DID URINE IT;AFTER THAT HE WHEN BACK TO BED;HE IS LAYING DOWN ON HIS LEFT SIDE .KEEP MONITORING
--- NOTE | 2018-12-26 02:15 | NUR ---
PT IS SLEEPING STILL AND TALKING NOT CLEARLY SAME TIME,BREATHING FAST ONES IN A WHILE.KEEP MONITORING
--- NOTE | 2018-12-26 02:27 | NUR ---
Rounds: Patient is laying in bed, appears restless, no acute distress otherwise. Tolerating room air, respirations are even, unlabored. Direct observation in place. Safety, fall, contact isolation precautions in place. Will continue to monitor.
--- NOTE | 2018-12-26 02:30 | NUR ---
pt still sleeping on his left side couple seconds later he turns on his back continuing sleeping seconds after he sits up half way talking not clearly and goes back to sleep on his left side.keep monitoring
--- NOTE | 2018-12-26 02:45 | NUR ---
pt is coughing then turns on his back start talking moving his arms like fighting then comes down;second after start breathing fast,talks,moves.pt goes back to sleep,snore loud.keep monitoring
--- NOTE | 2018-12-26 03:00 | NUR ---
pt still sleeping on his back same time talking,breathing fast,coughing.then he backs to sleep.keep monitoring
--- NOTE | 2018-12-26 03:15 | NUR ---
pt still sleeping and moving around;same time talking not clearly,laying down on his back.keep monitoring
--- NOTE | 2018-12-26 03:30 | NUR ---
pt woke up and sit up i offered him water again he drank 2 cups i ask him if he feels better he respond much better i let him know i would fix his pillow so he can go back to sleep and he did;pt lays down on his right side.keep monitoring.
--- NOTE | 2018-12-26 03:45 | NUR ---
pt put his legs out of the bed i put it back slowly,pt start talking,later he sits up like thinking i offered water again this time he drank little bit and back to sleep;pt stated he is shaking i gave him another blanket pt went back to sleep,couple seconds later he is making loud strange sound breathing fast again stop,back to sleep,snoring.keep monitoring
--- NOTE | 2018-12-26 04:00 | NUR ---
pt still sleeping,he turns on his left side,snoring loud. keep monitoring
--- NOTE | 2018-12-26 04:15 | NUR ---
pt is turning round on his right side seconds later he sits up again,i gave him a little water pt went back on his left side then he sits up i gave him a urinal then lays down again keep monitoring
--- NOTE | 2018-12-26 04:30 | NUR ---
pt sits up again i offered water he ask for juice;RN brought 2 container of water pt refused this time but ask for juice;RN brought juice for the pt.;pt went back to sleep on his left side.
--- NOTE | 2018-12-26 04:45 | NUR ---
phlebotomy nurse came to take blood from pt,he continuing sleeping on his left side.keep monitoring
--- NOTE | 2018-12-26 05:00 | NUR ---
pt start talking,moving around,shouting,turning left,right ,back,shouting again,breathing fast.keep monitoring
[2018-12-26] MEDS: HALOPERIDOL LACTATE 5 MG/ML VIAL IM PRN (05:14)
[2018-12-26] MEDS: DIPHENHYDRAMINE INJ 50 MG/ML VIAL IM PRN (05:14)
--- NOTE | 2018-12-26 05:15 | NUR ---
pt tried to get out of bed the RN in charge came to give medicine to the pt,first pt got cleaned up and fresh linen has given.pt was refusing to be clean security and nurses came to help pt start cooperating little bit.
--- NOTE | 2018-12-26 05:30 | NUR ---
RN in charged put the IV to the pt,security and rooming house keeper stay to help.Pt start to relax little bit.keep monitoring
--- NOTE | 2018-12-26 05:44 | NUR ---
IV RE-INSERTION: Patient has no IV site. Restarted on right hand. Successful after 1 attempt. Resumed current IVF of D5 1/2 NS and regulated at 60 per hour. Will observe for any signs of infiltration.
--- NOTE | 2018-12-26 05:45 | NUR ---
pt sits up again trying to get up went to the edge of the feet side didnt want to lay down RN in charged gave him medicine.pt is back to bed keep monitoring
[2018-12-26] MEDS: LORazepam 2 MG/ML VIAL IVP PRN (05:49)
[2018-12-26 05:50] LABS: BASOPHILS # (AUTO) 0.2 K/uL (0.0-0.2); BASOPHILS % (AUTO) 2.6 % (0.0-2.0); EOSINOPHILS # (AUTO) 0.1 K/uL (0.0-0.4); EOSINOPHILS % (AUTO) 2.3 % (0.0-4.0); HEMATOCRIT 39.9 % (36-54); HEMOGLOBIN 12.8 g/dL (14.0-18.0); LYMPHOCYTES # (AUTO) 1.7 K/uL (1.0-5.5); LYMPHOCYTES % (AUTO) 27.1 % (20.5-51.5); MEAN CORPUSCULAR HEMOGLOBIN 26 pg (27-31); MEAN CORPUSCULAR HGB CONC 32 % (32-36); MEAN CORPUSCULAR VOLUME 80 fL (79.0-98.0); MONOCYTES # (AUTO) 0.6 K/uL (0.0-1.0); NEUTROPHILS # (AUTO) 3.6 K/uL (1.8-7.7); PLATELET COUNT (AUTO) 193 K/uL (130-430); RED BLOOD CELL COUNT(AUTO) 4.99 MIL/uL (4.2-6.2); RED CELL DISTRIBUTION WIDTH 25.4 % (9.0-15.0)
[2018-12-26] MEDS: D5/0.45 NS 1,000 ML IV SCH ×2 (05:54→21:52)
--- NOTE | 2018-12-26 06:00 | NUR ---
pt sits up again i offered juice he drink little bit and lays down on hisright side pt tries to remove the IV i have to remind him is for his medicine so he can feels better pt stop then he wakes up and tries again,stop and sleep again.keep monitoring
--- NOTE | 2018-12-26 06:15 | NUR ---
pt is turning around,talking not clearly,shouting,laying onhis back.RN in charged came to check on the pt.keep monitoring
--- NOTE | 2018-12-26 06:30 | NUR ---
Patient laying in bed, trying to swing his leg over the railing, mumbling to himself. Assisted patient's leg back into the bed.
--- NOTE | 2018-12-26 06:45 | NUR ---
Patient attempting to get out of bed and pulling on his IV. Patient mumbling to himself. Patient told several times to lay back in bed. Patient ignoring staff and pulling on bed railing. supervisor opening and picking at the bedside helping. Patient laid back down
[2018-12-26] MEDS: QUEtiapine FUMARATE 100 MG TABLET PO SCH ×3 (06:50→17:56)
--- NOTE | 2018-12-26 06:56 | NUR ---
Closing note: Patient is sitting up in bed and mumbling, uncooperative with nursing staff at this time. Attempted to administer scheduled Seroquel, but patient refused. IV fluids infusing well to right forearm IV site. All needs met. Sitter remained at bedside. Contact isolation, safety, fall precautions observed. Hourly rounding performed throughout shift. Will endorse care to dayshift RN.
--- NOTE | 2018-12-26 07:00 | NUR ---
Patient still attempting to pull out IV. Reinforced IV with more coband. House sup, charge nurse, primary nurse and sitter at the bedside re-orienting patient. Patient yelling at staff and not obeying commands. Patient still breathing heavily and mumbling.
[2018-12-26 07:11] LABS: ALBUMIN 2.6 g/dL (3.4-4.8); CALCIUM 8.9 mg/dL (8.4-11.0); CREATININE 1.05 mg/dL (0.55-1.30); POTASSIUM 3.8 mmol/L (3.5-5.1); TOTAL BILIRUBIN 6.1 mg/dL (0.0-1.0)
--- NOTE | 2018-12-26 07:15 | NUR ---
Opening notes; Received pt in bed, pt is aaox1, very confused, doses on and off, talks in his sleep. follows command like laying down in bed, but sometimes get upset when told to do somethings. noted that pt has corey san respiration, per report pt refused to have the bipap on. iv fluids infusing well. iv access on r. wrist intact, covered with h franci bandage. safety precaution in place. this rn is the sitter at bedside.
--- NOTE | 2018-12-26 07:30 | NUR ---
pt on direct observation. pt trying to pull on his iv tubing and trying to get out of bed. pt needed to be told to stop pulling and to stay in bed.
[2018-12-26 07:31] VITALS: BP_SYST 121
--- NOTE | 2018-12-26 07:45 | NUR ---
pt in bed, sleeping. mumbles on and off.
--- NOTE | 2018-12-26 08:00 | NUR ---
pt in bed, sleeping. this sitter at bedside.
[2018-12-26 08:02] LABS: WHITE BLOOD COUNT (AUTO) 6.1 K/uL (4.8-10.8)
[2018-12-26 08:06] LABS: AFP, TUMOR MARKER 2.1 ng/mL (0.0-8.3)
--- NOTE | 2018-12-26 08:15 | NUR ---
patient offered breakfast with assistance. pt becomes upset. pt only took 75% of ensure and 1 spoonful of grits. will offer food later.
--- NOTE | 2018-12-26 08:30 | NUR ---
pt in bed, eyes closed, sleeping on and off, tried picking on his iv access, needed to be told to stop. pt followed command and then went back to sleep.
--- NOTE | 2018-12-26 08:33 | NUR ---
Attempting psychiatric placement Discussed case with Roxanna HARDIN. She will follow up with insurance and begin to explore residential options. Phoned the [facility], , and spoke with Danii. Alerted her that patient still needs placement and has been off restraints for 24 hours. Danii will work on the case. Aubrey LUNA will continue to look at placement options also. Addendum: 12/26/18 at 0908 by Aubrey LUNA Per Danii from [facility] [place], [facility] is reviewing clinicals and if accepted, pt will be taking the next open bed.
--- NOTE | 2018-12-26 08:45 | NUR ---
pt sleeping comfortably, snoring at times.
[2018-12-26] MEDS: MUPIROCIN 2% TOPICAL OINTMENT 22 GM TP SCH ×2 (08:52→21:52)
--- NOTE | 2018-12-26 09:00 | NUR ---
pt in bed, sleeping, mumble incomprehensible words. sitter at bedside.
--- NOTE | 2018-12-26 09:17 | NUR ---
pt in bed, sleeping , mumbles on and off. corey stoke respiration noted. this sitter at bedside.
--- NOTE | 2018-12-26 09:30 | NUR ---
pt in bed, sleeping. this sitter at bedside.
--- NOTE | 2018-12-26 09:44 | NUR ---
pt sitting in bed, eyes are closed, sleeping, encouraged to lay back to bed.
--- NOTE | 2018-12-26 10:00 | NUR ---
Patient is sleeping , arousal, moving legs around trying to get out of bed while both eyes closed. Try to get his legs back in bed. Then He is back to sleep.
--- NOTE | 2018-12-26 10:30 | NUR ---
pt in bed, sleeping, snoring. sittter at bedside.
--- NOTE | 2018-12-26 10:43 | NUR ---
pt tried to sit on the bed, mumbles incoherently. told pt to lay back on bed, pt shouted at me. then closed his eye and then lay on bed.
--- NOTE | 2018-12-26 10:46 | NUR ---
pt in bed, eyes closed. mumbles . tried to sit on the bed. this sitter at bedside.
--- NOTE | 2018-12-26 10:59 | NUR ---
patient in bed, snoring at times. sleeping. sitter at bedside.
[2018-12-26 11:24] VITALS: BP_SYST 104
--- NOTE | 2018-12-26 11:30 | NUR ---
pt acting up this time. tried to stand. told pt to stay in bed.
--- NOTE | 2018-12-26 11:38 | NUR ---
PT note Physical therapy on hold for today, due to patient behavior; nursing with agreement with decision; will try again tomorrow.
--- NOTE | 2018-12-26 11:45 | NUR ---
pt in bed, sleeping. mumbles on and off. sitter at bedside.
--- NOTE | 2018-12-26 12:00 | NUR ---
pt in bed, resting, on and off mumblings. no signs and symptoms of pain. sitter at bedside.
[2018-12-26 12:22] LABS: FERRITIN 92 ng/mL (30-400)
--- NOTE | 2018-12-26 12:29 | NUR ---
pt in bed, sleeping, on and off snoring. restraints on as pt has running iv fluids and iv poles at bedside.
--- NOTE | 2018-12-26 12:37 | NUR ---
Renew 5150 form: has made round ~1015 am with no new orders, but he renews a 5150 form.
--- NOTE | 2018-12-26 12:45 | NUR ---
Pt in bed, shouting and mumbling incoherently. doses off.
--- NOTE | 2018-12-26 13:00 | NUR ---
pt in bed, sleeping comfortably. bilat wrist restraints on.
--- NOTE | 2018-12-26 13:15 | NUR ---
pt in bed, resting comfortably. sitter at bedside.
--- NOTE | 2018-12-26 13:29 | NUR ---
pt in bed, awake, getting breathing treatment.
--- NOTE | 2018-12-26 14:32 | NUR ---
pt's mom and dad at bedside. pt was initially calm talking to them , but then later became upset. patient wanted to be out of restraint. told him that it is to prevent him falling and removing his iv access.
--- NOTE | 2018-12-26 14:45 | NUR ---
pt in bed, sleeping, no s/s of distress. bilat wrist restraint on.
--- NOTE | 2018-12-26 15:00 | NUR ---
pt resting in bed, snoring, no s/s of distress. continuously monitored for safety.
--- NOTE | 2018-12-26 15:15 | NUR ---
PT AWAKE, REQUESTED FOR FOOD, GIVEN 2 SPOONFULS OF MEAT AND MASHED POTATO.
--- NOTE | 2018-12-26 15:30 | NUR ---
PT SLEEPING AT THIS TIME. PT ON DIRECT OBSERVATION.
--- NOTE | 2018-12-26 15:57 | NUR ---
pt has not voided since the start of shift. pt encouraged to void in the urinal. pt was able to void 250 cc of dark bacilio urine. post void residual was 120cc
--- NOTE | 2018-12-26 16:15 | NUR ---
pt resting comfortably, asleep. sitter at bedside.
[2018-12-26 16:17] LABS: ANTI NUCLEAR AB WITH REFLEX Negative (Negative)
--- NOTE | 2018-12-26 16:30 | NUR ---
pt in bed, sleeping , no s/sx of pain, no sob. sitter at bedside.
[2018-12-26 16:36] VITALS: BP_SYST 117
--- NOTE | 2018-12-26 16:45 | NUR ---
pt in bed, resting comfortably. sitter at bedside.
--- NOTE | 2018-12-26 17:00 | NUR ---
pt resting in bed, no s/s pain, no rest distress. corey stoke breathing pattern still on. sitter at bed side. o2 sat is above 90%,
[2018-12-26] MEDS ORDERED: LACTULOSE 20 GM/30 ML UDC PO ONE (17:15)
--- NOTE | 2018-12-26 17:15 | NUR ---
pt resting comfortably, sleeping, sitter at bedside
--- NOTE | 2018-12-26 17:15 | NUR ---
DR lofton here and seen patient. pt is asleep, resting. no sob. sitter at bedside.
--- NOTE | 2018-12-26 17:33 | NUR ---
pt asleep, comfortable. sitter at bedside.
--- NOTE | 2018-12-26 17:58 | NUR ---
pt given seroquel and lactulose as ordered.
--- NOTE | 2018-12-26 18:29 | NUR ---
patient refused dinner but drank his ensure. pt now resting in bed.
--- NOTE | 2018-12-26 18:41 | NUR ---
Closing notes, pt was under direct observation the whole shift, pt p[lace on restrain as sedative has been withheld the whole shift. all po meds given. bp wnl , no fever. seen by dr figueroa, dr mo and dr lofton. [address] figueroa. pt still impulsive trying to get out of bed, pulled our his iv tubing. voided 2x but no bm today. given lactulose for increase ammonia level. will endorse to night nurse.
--- NOTE | 2018-12-26 19:00 | NUR ---
Initial note: Received report from dayshift RN. Patient is awake, restless in bed. Alert and oriented to name only. Speech is garbled. Even and unlabored breathing on room air. IV fluids infusing to right hand IV site, no infiltration noted. Direct observation in place, patient is on a current 5150 hold for DTS/DTO/GD. Bilateral soft wrist restraints in place per MD order for patient's safety. This RN to remain at bedside as sitter. Bed is locked in lowest position, side rails raised, bed alarm on, room is free of clutter. Will continue with plan of care.
--- NOTE | 2018-12-26 19:15 | NUR ---
Direct observation: Patient is laying in bed and kicking his legs. Tolerating room air. Safety, fall precautions in place. Will continue to monitor.
--- NOTE | 2018-12-26 19:30 | NUR ---
Direct observation: Patient awake and mumbling, kicking his legs up. Tolerating room air. Safety and fall precautions in place. Will continue monitoring.
--- NOTE | 2018-12-26 19:45 | NUR ---
Direct observation: Patient is awake, mumbling to himself. No acute distress. Safety and fall precautions in place. Will continue monitoring.
[2018-12-26 20:00] VITALS: BP_SYST 103
--- NOTE | 2018-12-26 20:00 | NUR ---
Direct observation: Patient is resting, occasionally yells while asleep. Safety and fall precautions in place. Will continue monitoring.
--- NOTE | 2018-12-26 20:15 | NUR ---
Direct observation: Patient is awake, appears restless. Attempted to administered medications scheduled for tonight, patient refused. Will continue attempting to administer medications. Safety and fall precautions in place. Will continue monitoring.
--- NOTE | 2018-12-26 20:30 | NUR ---
Direct observation: RT at bedside, completed administering breathing treatment. Patient is restless during treatment and attempted to remove mask, no adverse effects otherwise. Safety and fall precautions in place. Will continue to monitor.
--- NOTE | 2018-12-26 20:45 | NUR ---
Direct observation: Patient is awake, moving his legs around in bed. Tolerating room air. Safety and fall precautions in place. Will continue monitoring.
--- NOTE | 2018-12-26 21:00 | NUR ---
Direct observation: Patient is tugging at his restraints. Instructed patient not to do so, patient complied for a short time before tugging at his restraints again. Safety and fall precautions in place. Will continue monitoring.
--- NOTE | 2018-12-26 21:15 | NUR ---
Direct observation: Patient became free from left soft wrist restraint after pulling on it continuously. Patient refused to have restraint reapplied. Nursing staff at bedside assisting this RN in reapplying restraint. Patient became combative and tried to bite nursing staff. Security was called to the room to maintain safe environment and left wrist restraint was reapplied. Safety, fall precautions in place. Will continue to monitor.
--- NOTE | 2018-12-26 21:30 | NUR ---
Direct observation: Patient is laying in bed, yelling. Falls asleep occasionally. Safety and fall precautions in place. Will continue monitoring.
--- NOTE | 2018-12-26 21:45 | NUR ---
Direct observation: Patient is moving his legs around in bed. No acute distress. Safety and fall precautions in place. Will continue monitoring.
[2018-12-26] MEDS: LACTULOSE 20 GM/30 ML UDC PO SCH (21:51)
[2018-12-26] MEDS: RIFAXIMIN 550 MG TABLET PO SCH (21:51)
--- NOTE | 2018-12-26 22:00 | NUR ---
Direct observation: Patient is awake in bed, putting feet over side rails. Patient was asked to keep his feet in bed, patient complied. Safety, fall precautions in place. Will continue to monitor.
--- NOTE | 2018-12-26 22:15 | NUR ---
Med pass: Scheduled medications administered as ordered. Patient tolerated PO medications well, became agitated after Bactroban was administered, then fell asleep. Safety, fall precautions in place. Will continue to monitor.
--- NOTE | 2018-12-26 22:30 | NUR ---
Direct observation: Patient is laying in bed awake, mumbles to himself with occasional outbursts. Tolerating room air. Safety and fall precautions in place. Will continue monitoring.
--- NOTE | 2018-12-26 22:45 | NUR ---
Direct observation: Patient is in and out of sleep. Appears restless occasionally. Safety and fall precautions in place. Will continue monitoring.
--- NOTE | 2018-12-26 23:00 | NUR ---
IV RE-INSERTION: Complaining of pain to IV site. Restarted on right forearm, 20 gauge. Resumed current IVF of D5 1/2 NS and regulated @ 60 per hour. Will observe for any signs of infiltration.
--- NOTE | 2018-12-26 23:15 | NUR ---
Direct observation: Patient is laying in bed and yelling. Patient was offered water, urinal, and bedpan, but patient refused. Safety, fall precautions in place. Will continue to monitor.
--- NOTE | 2018-12-26 23:30 | NUR ---
Direct observation: Patient is in and out of sleep, has occasional outbursts. Tolerating room air. Safety, fall precautions in place. Will continue to monitor.
--- NOTE | 2018-12-26 23:45 | NUR ---
PT PATIENT IS RESTLESS, KEEP MONITORING
--- NOTE | 2018-12-27 | NUR ---
DIRECT OBSERVER PATIENT IS AGITATED AT THIS MOMENT, UNABLE TO SLEEP
--- NOTE | 2018-12-27 00:15 | NUR ---
Direct observation: Patient is incontinent, voided yellow urine. Incontinence care was provided, patient subsequently became agitated. Safety and fall precautions in place. Will continue monitoring.
[2018-12-27] MEDS: LORazepam 2 MG/ML VIAL IVP PRN ×3 (00:19→21:37)
[2018-12-27 00:30] VITALS: BP_SYST 129
--- NOTE | 2018-12-27 00:30 | NUR ---
Agitation: Patient was yelling and pulling at his restraints. Patient was reminded to keep his legs in bed, but patient did not comply. PRN Ativan was administered intramuscularly for agitation via right forearm IV site. Patient's legs were then placed back in bed. Safety, fall precautions in place. Will continue to monitor. Addendum: 12/27/18 at 0336 by Horace Feliz RN Correction: medication was administered intravenously.
--- NOTE | 2018-12-27 00:45 | NUR ---
Direct observation: Patient is restless, in and out of sleep. Tolerating room air. Safety and fall precautions in place. Will continue to monitor.
--- NOTE | 2018-12-27 01:00 | NUR ---
DIRECT OBSERVATION Patient talking in his sleep, in no distress, safety, fall precautions in place. Will continue to monitor.
--- NOTE | 2018-12-27 01:15 | NUR ---
DIRECT OBSERVATION Patient is in and out of sleep, talking in his sleep, in no distress, safety, fall precautions in place. Will continue to monitor.
[2018-12-27] MEDS: IPRATROPIUM/ALBUTEROL SULFATE 3 ML AMPUL.NEB (DUONEB) INH SCH ×4 (01:17→20:18)
--- NOTE | 2018-12-27 01:30 | NUR ---
Direct observation: Breathing treatment being administered by RT at this time. Patient is attempting to remove mask by shaking his head. Mask still in place. Safety and fall precautions in place. Will continue to monitor patient.
--- NOTE | 2018-12-27 01:45 | NUR ---
Direct observation: Patient is awake, mumbling incoherently. Tolerating room air. IV site is patent and benign. Safety and fall precautions in place. Will continue to monitor patient.
--- NOTE | 2018-12-27 02:00 | NUR ---
Direct observation: Patient is in and out of sleep. Restless when awake. Tolerating room air. No acute distress otherwise. Safety and fall precautions in place. Will continue to monitor patient.
--- NOTE | 2018-12-27 02:15 | NUR ---
Direct observation: Patient is laying in bed, no acute distress. Moves legs around occasionally. Safety and fall precautions in place. Will continue to monitor patient.
--- NOTE | 2018-12-27 02:30 | NUR ---
Direct observation: Patient is resting at this time. Yells occasionally, but falls asleep thereafter. Safety and fall precautions in place. Will continue to monitor patient.
--- NOTE | 2018-12-27 02:45 | NUR ---
Direct observation: Patient is in and out of sleep. Tolerating room air. IV fluids infusing well, no infiltration. Safety and fall precautions in place. Will continue to monitor patient.
--- NOTE | 2018-12-27 03:00 | NUR ---
Direct observation: Patient mumbles incomprehensibly while asleep. No acute distress otherwise. Safety and fall precautions in place. Will continue to monitor patient.
--- NOTE | 2018-12-27 03:15 | NUR ---
Direct observation: Patient is mumbling incomprehensibly while asleep. No distress noted. Safety and fall precautions in place. Will continue monitoring.
--- NOTE | 2018-12-27 03:30 | NUR ---
Direct observation: Patient talks to himself while sleeping, appears restless. Safety and fall precautions in place. Will continue monitoring.
--- NOTE | 2018-12-27 03:45 | NUR ---
Direct observation: Patient is asleep, mumbling to himself. No acute distress. Safety and fall precautions in place. Will continue to monitor patient.
--- NOTE | 2018-12-27 04:00 | NUR ---
Direct observation: Patient is awake, mumbling. No acute distress. Safety and fall precautions in place. Will continue monitoring.
--- NOTE | 2018-12-27 04:15 | NUR ---
Direct observation: Patient is resting in bed, mumbles occasionally. No acute distress, tolerating room air. Safety and fall precautions in place. Will continue to monitor.
--- NOTE | 2018-12-27 04:30 | NUR ---
Direct observation: Patient removed his gown, became agitated when this RN placed gown back on. Safety and fall precautions in place. Will continue to monitor.
--- NOTE | 2018-12-27 04:45 | NUR ---
Direct observation: Patient is asleep in bed. No acute distress. Even and unlabored breathing, tolerating room air. IV fluids infusing well to right forearm IV site. Safety and fall precautions in place. Will continue to monitor.
--- NOTE | 2018-12-27 05:00 | NUR ---
Direct observation: Patient is laying in bed and mumbling. Falls asleep at times. Safety and fall precautions in place. Will continue monitoring.
--- NOTE | 2018-12-27 05:15 | NUR ---
Direct observation: Patient is awake and started yelling. Offered patient urinal, patient was able to urinate 300 ML bacilio urine via urinal. Safety, fall precautions in place. Will continue to monitor.
--- NOTE | 2018-12-27 05:30 | NUR ---
Direct observation: Patient is laying in bed with eyes closed, kicking his feet occasionally. Patient mumbles to himself. Safety, fall precautions in place. Will continue to monitor.
--- NOTE | 2018-12-27 05:45 | NUR ---
Direct observation: Patient is yelling incomprehensibly. Offered patient water, urinal, bedpan, snacks. Patient refused. Safety, fall precautions in place. Will continue to monitor.
--- NOTE | 2018-12-27 06:00 | NUR ---
Direct observation: Patient is still yelling, started to place legs over side rails. Will administer PRN Ativan for agitation. Sitter duties endorsed to CLAIRE Chase/.
[2018-12-27] MEDS: QUEtiapine FUMARATE 100 MG TABLET PO SCH ×4 (06:05→16:29)
--- NOTE | 2018-12-27 06:06 | NUR ---
Agitation: Patient was yelling and kicking. Administered PRN Ativan intravenously for agitation. IV site presents no infiltration. Safety, fall precautions in place. Will continue to monitor.
--- NOTE | 2018-12-27 06:15 | NUR ---
DO NOTES RECEIVED REPORT FROM CARD PUNCHING MACHINE OPERATOR RN. NURSE ATTEMPTED TO GIVE WATER TO PATIENT. PATIENT TO DROWSY TO DRINK SOME WATER. WILL CONTINUE TO MONITOR PATIENT.
--- NOTE | 2018-12-27 06:30 | NUR ---
DO NOTES PATIENT SLEEPING AND SNORING IN BED. WILL CONTINUE TO MONITOR PATIENT.
--- NOTE | 2018-12-27 06:45 | NUR ---
DO NOTES PATIENT CONTINUES TO SLEEP AND SNORE IN BED. NO SIGNS OR SYMPTOMS OF DISTRESS NOTED. WILL CONTINUE TO MONITOR PATIENT.
--- NOTE | 2018-12-27 06:55 | NUR ---
Closing note: Patient is resting in bed with eyes closed. Mumbles incomprehensibly to himself on occasion. Tolerating room air. IV site to right forearm remains patent and benign, receiving IV fluids well. Soft restraints to bilateral wrists in place per MD order. All needs met. Sitter remained at bedside throughout shift. Safety and fall precautions observed. Will endorse care to dayshift RN.
--- NOTE | 2018-12-27 07:00 | NUR ---
DO NOTES PATIENT WAS COUGHING AND I GAVE HIM A SIP OF WATER. NURSE CAME IN TO REMOVE ONE OF THE IV SITES ON THE RIGHT HAND. WILL CONTINUE TO MONITOR PATIENT.
--- NOTE | 2018-12-27 07:15 | NUR ---
DO NOTES PATIENT MUMBLING IN HIS SLEEP. THE DEBT MANAGEMENT COUNSELOR FROM [facility] SOME BLOD FROM THE LEFT HAND. WLLL CONTINUE TO MONITOR PATIENT.
--- NOTE | 2018-12-27 07:30 | NUR ---
DO NOTES DAY SHIFT NURSE RECEIVED REPORT FROM DATA WAREHOUSE SPECIALIST NURSE. RESPIRATORY CAME IN ROOM TO ADMINISTER A BREATHING TREATMENT. PATIENT SLEEPING. WILL CONITNUE TO MONITOR.
[2018-12-27 07:45] LABS: ALBUMIN 2.6 g/dL (3.4-4.8); POTASSIUM 3.7 mmol/L (3.5-5.1); TOTAL BILIRUBIN 6.2 mg/dL (0.0-1.0)
--- NOTE | 2018-12-27 07:45 | NUR ---
DO NOTES PATIENT IN BED SLEEPING, STILL RECEIVING BREATHING TREATMENT. WILL CONTINUE TO MONITOR PATIENT.
[2018-12-27 07:52] LABS: EOSINOPHILS # (AUTO) 0.2 K/uL (0.0-0.4); EOSINOPHILS % (AUTO) 2.9 % (0.0-4.0); HEMATOCRIT 38.7 % (36-54); HEMOGLOBIN 12.3 g/dL (14.0-18.0); LYMPHOCYTES # (AUTO) 1.4 K/uL (1.0-5.5); LYMPHOCYTES % (AUTO) 22.9 % (20.5-51.5); MEAN CORPUSCULAR HEMOGLOBIN 26 pg (27-31); MEAN CORPUSCULAR HGB CONC 32 % (32-36); MEAN CORPUSCULAR VOLUME 81 fL (79.0-98.0); MONOCYTES # (AUTO) 0.6 K/uL (0.0-1.0); MONOCYTES % (AUTO) 9.2 % (1.7-9.3); PLATELET COUNT (AUTO) 177 K/uL (130-430); RED CELL DISTRIBUTION WIDTH 25.9 % (9.0-15.0)
[2018-12-27 08:00] VITALS: BP_SYST 137
--- NOTE | 2018-12-27 08:01 | NUR ---
DO NOTES PATIENT AGITATED WHEN I TOOK HIS AM VITALS. BUT I FED HIM SOME BREAKFAST. HE SPIT OUT HIS ENSURE BUT TOLD HIM TO EAT SOME YOGURT.
[2018-12-27 08:03] VITALS: BP_SYST 125
--- NOTE | 2018-12-27 08:15 | NUR ---
DO NOTES ATTEMPTED TO CONTINUE FEEDING THE PATIENT BREAKFAST, PATIENT WAS SO AGITATED HE BIT THE SPPON TO PIECES AND SPIT IT OUT WHILE I WAS TRYING TO FEED ERWIN VANILLA PUDDING. TOLD THE PATIENT TO JUST GO BACK TO SLEEP SINCE HE WASN'T COOPERATING.
--- NOTE | 2018-12-27 08:30 | NUR ---
DO NOTES PATIENT SLEEPING AND SNORING IN BED. WILL CONTINUE TO MONITOR.
--- NOTE | 2018-12-27 08:45 | NUR ---
DO NOTES PRESSER AND SHAPER KNITTED GOODS CAME IN TO EXAMINE PATIENT. PATIENT NOT FULLY ALERT TO ANSWER DOCTORS QUESTIONS. TOLD THE PATIENT TO GO BACK TO SLEEP.
--- NOTE | 2018-12-27 09:00 | NUR ---
DO NOTES PATIENT WAS AGITATED AND YELLING WHEN I ADJUSTED HIS GOWN TO COVER HIM UP. CHARGE NURSE CAME IN TO SEE PATIENT. PATIENT WENT BACK TO SLEEP ON AND OFF.
--- NOTE | 2018-12-27 09:15 | NUR ---
DO NOTES PATIENT CONTINUED TO SLEEP IN BED. NO SIGNS OR SYMPTOMS OF DISTRESS. WILL CONTINUE TO MONITOR.
--- NOTE | 2018-12-27 09:30 | NUR ---
DO NOTES PATIENT CONTINUES TO SLEEP IN BED. NO SIGNS OF SYMPTOMS OF DISTRESS NOTED. WILL CONTINUE TO MONITOR PATIENT.
--- NOTE | 2018-12-27 09:45 | NUR ---
DO NOTES PATIENT RESTING IN BED SLEEPING WITH NO SIGNS OR SYMPTOMS OF DISTRESS NOTED. WILL CONTINUE TO MONITOR PATIENT.
--- NOTE | 2018-12-27 10:00 | NUR ---
DO NOTES PATIENT HAS CONTINUED TO SLEEP. WILL CONTINUE TO MONITOR.
--- NOTE | 2018-12-27 10:15 | NUR ---
NOTE patient resting in bed sleeping, no signs of distress.
[2018-12-27] MEDS: RIFAXIMIN 550 MG TABLET PO SCH ×2 (10:21→21:36)
[2018-12-27] MEDS: MUPIROCIN 2% TOPICAL OINTMENT 22 GM TP SCH ×2 (10:22→21:37)
--- NOTE | 2018-12-27 10:30 | NUR ---
rounds due meds were given and guillaume well. continue to sleep at intervals otherwise tlaks to himself in his sleep and screams at intervals. direct observed at bedside.
--- NOTE | 2018-12-27 10:32 | NUR ---
DO NOTES PATIENT WAS AWAKEN BY NURSE TO TAKE SOME MEDICATIONS ORALLY. HE IS AGITATED ONCE AGAIN. WILL CONTINUE TO MONITOR.
[2018-12-27] MEDS: LACTULOSE 20 GM/30 ML UDC PO SCH ×2 (10:35→21:36)
--- NOTE | 2018-12-27 10:45 | NUR ---
DO NOTES PATIENT IN BED SLEEPING ON AND OFF AND MOVING HIS LEGS IN BED,
--- NOTE | 2018-12-27 10:53 | NUR ---
Pt note Patient refusing therapy at this time; nursing made aware.
--- NOTE | 2018-12-27 11:00 | NUR ---
DO NOTES PATIENT AGITATED IN BED YELLING AND MOVING AROUND A LOT.WILL CONTINUE TO MONITOR.
--- NOTE | 2018-12-27 11:15 | NUR ---
DO NOTES PATIENT HAS BEEN AGITATED KICKING AND YELLING IN BED. ASSISTED PATIENT WITH URINAL CAUSE HE SAID HE HAD TO GO PEE. 150cc's OF URINE DARK IVON COLOR. WILL CONTINUE TO MONITOR PATIENT.
--- NOTE | 2018-12-27 11:30 | NUR ---
DO NOTES MAGALY FORTE TO YELL IN BED WHILE HE SLEEPS ON AND OFF. WILL CONTINUE TO MONITOR.
--- NOTE | 2018-12-27 11:45 | NUR ---
DO NOTES PATIENT FIDGETS AND YELLS IN BED. WILL CONTINUE TO MONITOR.
[2018-12-27 11:58] LABS: CERULOPLASMIN 45.8 mg/dL (16.0-31.0)
[2018-12-27] MEDS: LORazepam 2 MG/ML VIAL IM PRN (11:58)
--- NOTE | 2018-12-27 12:00 | NUR ---
DO NOTES WAS ABLE TO TAKE PATIENTS VITALS. PATIENT WAS COMPLIANT.
[2018-12-27 12:10] VITALS: BP_SYST 137
--- NOTE | 2018-12-27 12:15 | NUR ---
DO NOTES ASSISTED NURSE WITH TURNING PATIENT TO ADMINISTER ATIVAN SHOT ON HIS BEHIND. HELPED NURSE ADMINISTER SEROQUEL. PATIENT TOOK MEDICATIONS VERY GOOD.
--- NOTE | 2018-12-27 12:22 | NUR ---
rounds pt started waking up at intervals and screaming, due meds were given. will continue to monitor patient.
[2018-12-27 12:24] LABS: BASOPHILS % (AUTO) 0.8 % (0.0-2.0); NEUTROPHILS # (AUTO) 3.9 K/uL (1.8-7.7); NEUTROPHILS % (AUTO) 64.2 % (40.0-70.0)
--- NOTE | 2018-12-27 12:30 | NUR ---
DO NOTES ASSISTED PATIENT WITH HIS LUNCH HE DRANK HIS ENSURE AND DRANK CRANBERRY JUICE. DID NOT LIKE THE TEA OR CHICKEN SOUP AND HE SAID HE WAS FULL.
--- NOTE | 2018-12-27 12:45 | NUR ---
DO NOTES MADDI NOVAK CAME BY TO SEE PATIENT. CHANGED PATIENT'S GOWN. PATIENT WENT BACK TO SLEEP.
--- NOTE | 2018-12-27 13:00 | NUR ---
DO NOTES PATIENT YELLING AND SCREAMING IN BED WHILE HE SLEEPS ON AND OFF.
--- NOTE | 2018-12-27 13:15 | NUR ---
DO NOTES PATIENT ASKED FOR THE URINAL CAUSE HE HAD TO GO PEE. PATIENT THEN WENT BACK TO SLEEP. WILL CONTINUE TO MONITOR.
--- NOTE | 2018-12-27 13:30 | NUR ---
DO NOTES PATIENT SLEEPING AND SNORING IN BED. RT AT BEDSIDE ADMINISTERING A BREATHING TREATMENT. WILL CONTINUE TO MONITOR PATIENT.
--- NOTE | 2018-12-27 13:45 | NUR ---
DO NOTES PATIENT TOLERATED BREATHING TREATMENT VERY WELL. PATIENT WENT BACK TO SLEEP AFTER BREATHING TREATMENT. WILL CONTINUE TO MONITOR PATIENT.
--- NOTE | 2018-12-27 14:00 | NUR ---
DO NOTES PATIENT YELL AND FIDGETS IN BED. WILL CONTINUE TO MONITOR.
[2018-12-27 14:14] LABS: ANTI-SMOOTH MUSCLE AB 28 Units (0-19)
--- NOTE | 2018-12-27 14:15 | NUR ---
DO NOTES TOOK PATIENT OFF RESTRAINTS AND ASSITED HIM TO THE RESTROOM SO HE COULD GO NUMBER 2.
--- NOTE | 2018-12-27 14:32 | NUR ---
DO NOTES PATIENT WAS COMBATIVE AFTER THE RESTROOM. CALLED SECURITY AND PERCUSSION WELDING MACHINE OPERATOR ASSITED TO PUT THE RESTRAINTS BACK ON THE PATIENT.
--- NOTE | 2018-12-27 14:48 | NUR ---
OBSERVATION NOTES: Patient is lying down in bed with both eyes closed .will continue to monitor .
[2018-12-27] MEDS ORDERED: chlordiazePOXIDE HCL 25 MG CAPSULE PO SCH (15:00)
--- NOTE | 2018-12-27 15:01 | NUR ---
OBSERVATION NOTES:Patient continues to be lying down in bed .patient will occasionally psychological examiner on an off in his sleep .patient is redirected and patient will stop .will continue to monitor .
--- NOTE | 2018-12-27 15:15 | NUR ---
DO NOTES PATIENT YELLING AND SNORING WHILE HE SLEEPS. WILL CONTINUE TO MONITOR PATIENT.
--- NOTE | 2018-12-27 15:30 | NUR ---
DO NOTES PATIENT CPNTINUES TO SLEEP AND SNORE AND YELL IN BED.
--- NOTE | 2018-12-27 15:45 | NUR ---
DO NOTES PATIENT CONTINUES TO SLEEP. NO SIGNS OR SYMTOMS OF DISTRESS. WILL CONTINUE TO MONITOR.
[2018-12-27] MEDS: D5/0.45 NS 1,000 ML IV SCH (15:54)
[2018-12-27 15:55] VITALS: BP_SYST 122
--- NOTE | 2018-12-27 16:02 | NUR ---
DO NOTES PATIENT CONTINUES TO SLEEP. WAS ABLE TO TAKE PATIENT'S VITALS WHILE HE SLEPT. WILL CONTINUE TO MONITOR PATIENT.
--- NOTE | 2018-12-27 16:15 | NUR ---
DO NOTES PATIENT IN BED CONTINUES TO SLEEP. WILL CONTINUE TO MONITOR.
--- NOTE | 2018-12-27 16:30 | NUR ---
Review Appraiser: HUMAN SERVICES WORKER continued to work on contacting IP Psych facilities for transfer for this Pt. [facility] 5150 was renewed 12/26/2018 for DTS/DTO/GD Consulted with MD Pelaez Orders written indicating that Pt. is medically cleared for discharged to an inpatient Psych facility. Contacted [facility] ([place] [phone]) to resume assisting with search for inpatient psych bed. Provided most recent medical packet and renewed 5150. This feature writer faxed intake packet to the facilities who may have beds after 2PM: [facility] and [facility] ([place]) [facility] HUMAN SERVICES WORKER will continue to follow up and assist with locating psych inpatient placement.
--- NOTE | 2018-12-27 16:30 | NUR ---
DO NOTES PATIENT SLEEPING AND MUMBLING IN BED. FIDGETS ON OND OFF.
--- NOTE | 2018-12-27 16:45 | NUR ---
DO NOTES PATIENT TALKING IN HIS SLEEP. WILL CONTINUE TO MONITOR.
--- NOTE | 2018-12-27 17:00 | NUR ---
DO NOTES PATIENT CONTINUES TO TALK WHILE HE SLEEPS IN BED. WILL CONTINUE TO MONITOR PATIENT.
--- NOTE | 2018-12-27 17:15 | NUR ---
DO NOTES PATIENT CONTINUES TO MUMBLE IN HIS SLEEP. WILL CONTINUE TO MONITOR.
--- NOTE | 2018-12-27 17:30 | NUR ---
DO NOTES PATIENT CONTINUES TO SLEEP. NO SIGNS OR SYMPTOMS OF DIATRESS NOTED. WILL CONITNUE TO MONITOR.
--- NOTE | 2018-12-27 17:45 | NUR ---
DO NOTES PICKED UP THE DINNER TRAY FOR THE PATIENT ASKED HIM IF HE WANTS TO EAT DINNER. HE REFUSED FOR NOW. PUT PATIENT FLAT ON HIS BACK WITH A PILLOW BEHIND HIS HEAD SO HE COULD CONTINUE SLEEPING.
--- NOTE | 2018-12-27 18:00 | NUR ---
DO NOTES PATIENT CONTINUES TO SLEEP IN BED TALKING IN HIS SLEEP. WILL CONTINUE TO MONITOR.
--- NOTE | 2018-12-27 18:15 | NUR ---
DO NOTES PATIENT CONTINUES TO YELL IN HIS BED. WILL CONTINUE TO MONITOR.
--- NOTE | 2018-12-27 18:30 | NUR ---
DO NOTES PATIENT CONTINUES TO SLEEP. WILL CONTINUE TO MONITOR.
--- NOTE | 2018-12-27 18:45 | NUR ---
DO NOTES PATIENT CONTINUES TO SLEEP AND SNORE.
--- NOTE | 2018-12-27 19:00 | NUR ---
DO NOTES PATIENT CONTINUES TO SLEEP AND SNORE. NO SIGNS OR SYMPTOMS OF DISTRESS. WILL CONTINUE TO MONITOR PATIENT.
--- NOTE | 2018-12-27 19:00 | NUR ---
closing notes report given to yonis , sleep at intervals,talks to himself at at intervals on in his sleep. no osb noted.
--- NOTE | 2018-12-27 19:15 | NUR ---
OPENING NOTES/TRANSFER OF CARE Bedside report received from dayshift nurse and sitter. Patient received in bed, asleep, no s/s of acute distress noted. Breathing even and unlabored. HOB raised. Soft wrist restraints attached, no signs of trauma noted, no redness or swelling on wrist or bilateral hands. IVF infusing well, IV site patent, no signs of infiltration or infection noted. Bed alarm is on. Bed is locked and at lowest position. RN sitter present at bedside. Will continue to monitor patient throughout shift.
--- NOTE | 2018-12-27 19:30 | NUR ---
DO NOTES Patient remains asleep, snoring. No s/s of acute distress. Breathing even and unlabored. Bilateral soft wrist restraints in place. Will continue to monitor.
--- NOTE | 2018-12-27 19:45 | NUR ---
DO NOTES Patient continues to remain asleep. Patient mumbles while asleep. No signs of discomfort noted. Chest rise and fall even bilaterally. HOB raised. Sitter present at bedside. Will continue to monitor.
--- NOTE | 2018-12-27 20:00 | NUR ---
VOID/ASSISTED TO BATHROOM/REFUSING VITALS/COMBATIVE Patient woke, expressed needing to void. Restraints removed, patient walked to the bathroom. Gait unsteady, assisted by RN. Patient is lethargic, assisted back to bed. Patient is being combative and refuses to have restraint for left wrist attached. Patient swinging left arm and kicking left foot. Patient refusing to have vitals taken at this time. Sitter present at bedside. Will continue to encourage and monitor throughout shift.
--- NOTE | 2018-12-27 20:15 | NUR ---
DO NOTES Patient asleep at this time. No s/s of acute distress noted. Breathing even and unlabored. HOB raised. Bed locked and at lowest position. Sitter present at bedside. Will continue to monitor.
--- NOTE | 2018-12-27 20:30 | NUR ---
REFUSED BREATHING TREATMENT/OFFERED FLUIDS AND FOOD RT at bedside attempting to administer breathing treatment. Patient refused, continuously shaking his head, venturi mask cannot be placed. Patient offered food from dinner tray and fluids. Patient refused. Patient went back to sleep immediately after. No signs of discomfort noted. HOB raised. Chest rise and fall even bilaterally. IVF infusing well. Bilateral soft wrist restraints in place. Sitter present at bedside. Will continue to monitor.
--- NOTE | 2018-12-27 20:45 | NUR ---
REFUSED VITALS Attempted to take patient's vitals, patient woke up agitated. Patient stated," Don't fucking touch me". Will attempt again later. No s/s of acute distress noted. Breathing even and unlabored. HOB raised. IVF infusing well. Sitter present at bedside. Will continue to monitor.
--- NOTE | 2018-12-27 21:00 | NUR ---
ROUNDS Patient asleep at this time. No s/s of acute distress. Breathing even and unlabored. IVF infusing well. HOB raised. Sitter at bedside. Will continue to monitor.
--- NOTE | 2018-12-27 21:15 | NUR ---
DO NOTES Patient remains asleep, snoring. No s/s of acute distress noted. Breathing even and unlabored. HOB raised. IVF infusing well. Soft wrist restraints in place. Sitter at bedside. Will continue to monitor.
--- NOTE | 2018-12-27 21:30 | NUR ---
VITALS Patient woken up for vitals, at first patient was cooperative. Once the BP cuff started tightening patient became agitated. Patient attempting to pull restraints off. Patient is kicking the footboard. Unable to take blood pressure at this time. Temperature, HR, and SPO2 within normal limits. Patient remains agitated after BP cuff removed, PRN medication to be administered. Sitter present at bedside.
--- NOTE | 2018-12-27 21:45 | NUR ---
MEDICATION Patient refusing medication at this time. Attempted multiple times, patient agreed to take Xifaxan. Patient refusing Enulose at this time. Will continue to encourage. Patient went back to sleep, snoring. No signs of discomfort. Chest rise and fall even bilaterally. HOB raised. IVF infusing. All needs met at this time. Sitter at bedside.
--- NOTE | 2018-12-27 22:00 | NUR ---
DO NOTES Patient managed to sit up in bed, tripod position. Patient encouraged to lay back down, patient uncooperative. Patient asleep while sitting up. No signs of discomfort noted. Breathing even and unlabored. Soft restraints attached bilateral wrist. IVF infusing well. Sitter present at bedside. Will continue to monitor.
--- NOTE | 2018-12-27 22:15 | NUR ---
DO NOTES Patient laying in bed at this time, sleeping, mumbling. No s/s of acute distress noted. Breathing even and unlabored. IVF infusing well. HOB raised. Soft restraints in place. All needs met. Sitter present at bedside.
--- NOTE | 2018-12-27 22:30 | NUR ---
DO NOTES Patient sleeping, snoring. No signs of discomfort. HOB raised. Chest rise and fall even bilaterally. IVF infusing. Soft wrist restraints in place. Fall and safety precautions maintained. Sitter at bedside. Will continue to monitor.
--- NOTE | 2018-12-27 22:45 | NUR ---
DO NOTES Patient sleeping at this time. No s/s of acute distress. Breathing even and unlabored. HOB raised. IVF infusing. Soft wrist restraint in place. Sitter at bedside. Will continue to monitor.
--- NOTE | 2018-12-27 23:00 | NUR ---
DO NOTES Patient asleep and snoring. No signs of discomfort noted. Chest rise and fall even bilaterally. HOB raised. IVF infusing well. Soft wrist restraints in place. Sitter at bedside. Will continue to monitor.
--- NOTE | 2018-12-27 23:15 | NUR ---
DO NOTES Patient sleeping at this time. HOB raised. No s/s of acute distress noted. Breathing even and unlabored, snoring. IVF infusing well. Soft wrist restraints in place. Sitter present at bedside. Will continue to monitor.
--- NOTE | 2018-12-27 23:30 | NUR ---
DO NOTES Patient asleep, snoring. No signs of discomfort noted. Chest rise and fall even bilaterally. HOB raised. IVF infusing well. Soft wrist restraints in place. Sitter present at bedside. Will continue to monitor.
--- NOTE | 2018-12-27 23:45 | NUR ---
DO NOTES Patient asleep, mumbling, appears to be dreaming. Patient asked if he needs anything, patient does not respond. No s/s of acute distress noted. Breathing even and unlabored. HOB raised. IVF infusing well. Soft wrist restraints in place. Sitter present at bedside. Will continue to monitor.
[2018-12-28] VITALS: BP_SYST 136
--- NOTE | 2018-12-28 | NUR ---
FOOD/WATER Patient woke up. Food and water offered, patient agreed. Patient tolerated well, was able to swallow. 50% of dinner plate fed to patient at this time. Patient fell back to sleep right after. HOB raised 45 degrees. No signs of discomfort noted. Chest rise and fall even bilaterally. IVF infusing well. Soft wrist restraints in place. Sitter present at bedside. Will continue to monitor.
--- NOTE | 2018-12-28 00:15 | NUR ---
DO NOTES Patient laying in bed, sleeping, snoring. No s/s of acute distress noted. Breathing even and unlabored. HOB raised. Sitter present at bedside. Will continue to monitor.
--- NOTE | 2018-12-28 00:30 | NUR ---
DO NOTES Patient sat up in bed at this time. Patient instructed to lay back down but uncooperative. Patient has eyes closed, appears to be sleeping while sitting up. No s/s of acute distress. Breathing even and unlabored. Soft wrist restraints in place. IVF infusing well. Sitter present at bedside. Will continue to monitor.
--- NOTE | 2018-12-28 00:45 | NUR ---
DO NOTES Patient sleeping at this time, mumbling in his sleep. Patient laying back in bed, HOB raised. No signs of discomfort noted. Chest rise and fall even bilaterally. IVF infusing well. Soft wrist restraints in place. Sitter present at bedside. Will continue to monitor.
--- NOTE | 2018-12-28 01:00 | NUR ---
DO NOTES Patient assisted back up in bed, AN assisted. No s/s of acute distress noted. Breathing even and unlabored, snoring, HOB raised. Sitter present at bedside. Will continue to monitor.
--- NOTE | 2018-12-28 01:15 | NUR ---
ROUNDS Patient yelling and screaming in his sleep, bilat wrist restraints in place, will monitor.
--- NOTE | 2018-12-28 01:30 | NUR ---
ROUNDS Patient asleep, breathing even and unlabored, no distress noted, safety precautions in place.
--- NOTE | 2018-12-28 01:45 | NUR ---
DO NOTE Patient in bed, asleep, snoring, screams in his sleep. No s/s of acute distress noted. Breathing even and unlabored. HOB raised. IVF infusing well. Soft wrist restraints in place. Sitter at bedside. Will continue to monitor.
--- NOTE | 2018-12-28 02:00 | NUR ---
DO NOTE Patient sleeping at this time. No signs of discomfort noted. Chest rise and fall even bilaterally. HOB raised. IVF infusing well. Soft wrist restraints in place. Sitter present at bedside. All needs met. Will continue to monitor.
--- NOTE | 2018-12-28 02:15 | NUR ---
DO NOTES Patient sleeping, mumbling and yelling in his sleep. No s/s of acute distress noted. Breathing even and unlabored. Sitter present at bedside. Soft wrist restraints in place. Will continue to monitor.
--- NOTE | 2018-12-28 02:30 | NUR ---
DO NOTES Patient has eyes closed, appears to be asleep, yelling and pointing at the wall in his sleep. No s/s of acute distress. HOB raised. Breathing even and unlabored. Soft wrist restraints in place. IVF infusing well. Sitter present at bedside. Will continue to monitor.
--- NOTE | 2018-12-28 02:45 | NUR ---
DO NOTES Patient sat at, now sitting at foot of bed. Patient instructed to lay back down, patient replied yelling, " NO! ". Patient falls asleep in this position, mumbling and snoring in his sleep. Soft wrist restraints in place. IVF infusing well. Will continue to encourage patient to lay back down. Sitter present at bedside. Will continue to monitor.
--- NOTE | 2018-12-28 03:00 | NUR ---
DO NOTES Patient sitting up in bed, awake. Attempting to get out of bed, shaking the bed, yelling. Patient instructed to lay back down, uncooperative. Soft wrist restraints in place. IVF infusing well. Sitter present at bedside. Will continue to encourage to lay down. Will continue to monitor.
--- NOTE | 2018-12-28 03:15 | NUR ---
DO NOTES Patient laying down in bed at this time. Patient asleep, snoring and mumbling in his sleep. No signs of discomfort noted. HOB raised. Chest rise and fall even bilaterally. IVF infusing well. Soft wrist restraints in place. Sitter present at bedside. Will continue to monitor.
[2018-12-28] MEDS: IPRATROPIUM/ALBUTEROL SULFATE 3 ML AMPUL.NEB (DUONEB) INH SCH ×6 (03:20→23:13)
--- NOTE | 2018-12-28 03:30 | NUR ---
DO NOTES Patient laying in bed, sleeping, snoring. No s/s of acute distress. Breathing even and unlabored. HOB raised. Soft wrist restraints in place. IVF infusing well. Sitter present at bedside. Will continue to monitor.
--- NOTE | 2018-12-28 03:45 | NUR ---
DO NOTES Patient laying in bed, asleep. No signs of discomfort noted. Chest rise and fall even bilaterally. IVF infusing well. Soft wrist restraints in place. Sitter at bedside. Will continue to monitor.
--- NOTE | 2018-12-28 04:00 | NUR ---
DO NOTES Patient asleep, talking in his sleep. No s/s of acute distress noted. Breathing even and unlabored, snoring. HOB raised. IVF infusing well. Soft wrist restraint in place. Sitter present at bedside. Will continue to monitor.
--- NOTE | 2018-12-28 04:15 | NUR ---
DO NOTES Patient sleeping. Patient mumbling in his sleep. No signs of discomfort noted. Chest rise and fall even bilaterally. HOB raised. IVF infusing well. Soft wrist restraint in place. Sitter present at bedside. Will continue to monitor.
--- NOTE | 2018-12-28 04:30 | NUR ---
DO NOTES Patient sleeping. No s/s of acute distress. Breathing even and unlabored, snoring. IVF infusing well. Soft wrist restraint in place. Sitter at bedside. Will continue to monitor.
--- NOTE | 2018-12-28 04:45 | NUR ---
DO NOTES Patient asleep, snoring and talking in his sleep. No signs of discomfort noted. Chest rise and fall even bilaterally. Soft wrist restraints in place. IVF infusing well. Sitter present at bedside. Will continue to monitor.
--- NOTE | 2018-12-28 05:00 | NUR ---
DO NOTES Patient in bed sitting up at this time. Patient asleep in this position, mumbling in his sleep. No s/s of acute distress. Breathing even and unlabored. IVF infusing well. Soft wrist restraint in place. Sitter present at bedside. Will continue to monitor.
--- NOTE | 2018-12-28 05:15 | NUR ---
SKIN CARE/CHANGED SHEETS AND GOWN Skin care provided to patient at this time. Provided fresh gown and sheets. Patient tolerated procedure, patient cooperative. Patient asleep at this time. No s/s of acute distress. Breathing even and unlabored. IVF infusing well. Soft wrist restraints in place. Sitter present at bedside.
--- NOTE | 2018-12-28 05:30 | NUR ---
BLOOD DRAW/URINAL/WATER Crusher Loader Operator at bedside drawing morning labs at this time. Patient then stated he has to pee, urinal provided by RN. Patient voided 300 ml of dark orange urine. Water offered to patient, patient drank one cup of water. All needs met at this time. Patient fell asleep right after. HOB raised. No s/s of acute distress noted. Breathing even and unlabored. Sitter present at bedside.
--- NOTE | 2018-12-28 05:45 | NUR ---
DO NOTES Patient laying in bed, asleep, mumbling and yelling in his sleep. No s/s of acute distress noted. Breathing even and unlabored. Soft wrist restraints in place. IVF infusing well. Sitter present at bedside. Will continue to monitor.
--- NOTE | 2018-12-28 06:00 | NUR ---
DO NOTES Patient laying down, asleep, mumbling in his sleep. No s/s of acute distress noted. Breathing even and unlabored, snoring, HOB raised. Soft wrist restraint in place. IVF infusing well. Sitter present at bedside. Will continue to monitor.
[2018-12-28] MEDS: QUEtiapine FUMARATE 100 MG TABLET PO SCH ×3 (06:11→16:48)
--- NOTE | 2018-12-28 06:15 | NUR ---
SEROQUEL Seroquel administered at this time. Patient cooperative at this time. Patient fell back to sleep right after. No signs of discomfort noted. Chest rise and fall even bilaterally. Soft restraints in place. IVF infusing well. Sitter present at bedside. Will continue to monitor.
--- NOTE | 2018-12-28 06:15 | NUR ---
OBSERVATION: PT AT THIS TIME IS LAYING DOWN IN BED. RESTLESS AND YELLING OUT. NO SIGNS OF DISTRESS. WILL CONTINUE TO MONITOR
[2018-12-28] MEDS: D5/0.45 NS 1,000 ML IV SCH (06:21)
--- NOTE | 2018-12-28 06:25 | NUR ---
SITTER RELIEVED Bedside report given to CARRI Escobar. Patient in bed, asleep, talking in his sleep. No s/s of acute distress noted. Breathing even and unlabored. Soft wrist restraints in place. HOB raised. IVF infusing well, IV site patent, no signs of infiltration or infection noted. Will continue to monitor until patient care is endorsed to oncoming dayshift nurse.
--- NOTE | 2018-12-28 06:30 | NUR ---
OBSERVATION: PT IS VERY RESTLESS AND YELLING OUT. NO SIGNS OF DISTRESS. WILL CONTINUE TO MONITOR
--- NOTE | 2018-12-28 06:41 | NUR ---
OBSERVATION: PT IS VERY RESTLESS AMD MOVING AROUND IN THE BED. NO SIGNS OF DISTRESS AND WILL CONTINUE TO MONITOR
--- NOTE | 2018-12-28 06:42 | NUR ---
CLOSING NOTES Patient in bed asleep at this time, mumbling and yelling in his sleep. No s/s of acute distress noted. Breathing even and unlabored, snoring in his sleep, HOB raised. IVF infusing well. IV site patent, no signs of infiltration or infection noted. Soft wrist restraint in place. Fall and safety precautions maintained throughout shift. All needs met. Sitter present at bedside throughout shift. Will continue to monitor until patient care is endorsed to oncoming dayshift nurse.
--- NOTE | 2018-12-28 07:00 | NUR ---
OBSERVATION: PT IS RESTLESS AND YELLING OUT. NO SINGS OF DISTRESS. WILL CONTINUE TO MONITOR
[2018-12-28 07:23] LABS: ALBUMIN 2.6 g/dL (3.4-4.8); CALCIUM 8.6 mg/dL (8.4-11.0); CREATININE 0.95 mg/dL (0.55-1.30); POTASSIUM 3.9 mmol/L (3.5-5.1); TOTAL BILIRUBIN 6.5 mg/dL (0.0-1.0)
[2018-12-28 07:30] LABS: INR 1.7 (0.80-1.20); PROTHROMBIN TIME 17.2 SECS (9.5-12.5)
--- NOTE | 2018-12-28 07:30 | NUR ---
Observation: patient talking while sleeping no sign of acute distress.
--- NOTE | 2018-12-28 07:45 | NUR ---
OBSERVATION: PT IS RESTLESS IN BED AND TALKING OUT LOUD. NOM SIGNS OF DISTRESS. WILL CONTINUE TO MONITOR PATIENT
[2018-12-28] MEDS: LACTULOSE 20 GM/30 ML UDC PO SCH ×2 (07:53→21:25)
[2018-12-28] MEDS: RIFAXIMIN 550 MG TABLET PO SCH ×2 (07:53→21:25)
[2018-12-28] MEDS: MUPIROCIN 2% TOPICAL OINTMENT 22 GM TP SCH ×2 (07:53→21:00)
[2018-12-28 08:00] VITALS: BP_SYST 133
--- NOTE | 2018-12-28 08:00 | NUR ---
RECEIVED REPORT FROM KEIKO. PATIENT IS CALM BUT WITH OCCASIONAL BURST OF AGITATION. IV ON THE RIGHT ARM, #20. CALL LIGHT IN PLACE, BED LOCKED AT THE LOWEST POSITION.
--- NOTE | 2018-12-28 08:00 | NUR ---
OBSERVATION TOOK VITALS, NURSE CAME IN TO GIVE MORNING MEDS. PT DRANK ALITTLE OF THE ENSURE. STILL RESTLESS. NO SIGNS OF DISTRESS. WILL CONTINUE TO MONITOR
[2018-12-28 08:03] VITALS: BP_SYST 133
--- NOTE | 2018-12-28 08:15 | NUR ---
OBSERVATION: RESPIRATORY CAME IN TO DO A BREATHING TREATMENT. SECURITY CAME IN TO CHECK UP ON PATIENT. NO SIGNS OF DISTRESS. WILL CONTINUE TO MONITOR
--- NOTE | 2018-12-28 08:30 | NUR ---
OBSERVATION: PT DRANK SOME JUICE AND ENSURE. PT IS TRYING TO SLEEP IN THE BED. NO DISTRESS AND WILL CONTINUE TO MONITOR
--- NOTE | 2018-12-28 08:45 | NUR ---
OBSERVATION: PT IS TRYING TO SLEEP BUT STILL RESTLESS. NO SIGNS OF DISTRESS WILL CONTINUE TO MONITOR
--- NOTE | 2018-12-28 09:00 | NUR ---
OBSERVATION: PT AT THIS TIME IS SLEEPING AND TALKING IN HIS SLEEP. NI SIGNS OF DISTRESS AND WILL CONTINUE TO MONITOR
--- NOTE | 2018-12-28 09:09 | NUR ---
Psych Placement Planning INSTRUCTIONAL ASSISTANT phoned Danii at [facility] and notified them we still needed placement for patient. Assured she had the latest 5150 hold by faxing it again. Addendum: 12/28/18 at 0952 by Aniya Narayanan LCSW Update from nursing that patient is on restraints. Notified Art at the call center. Note: 5150 hold will at 10:15am 12/29/18. Addendum: 12/28/18 at 1137 by Aniya Narayanan LCSW Discussed case with Petra HARDIN Director. She will look into the case further. Phoned the [facility] office, . Rosemarie Cotter is on vacation. Left a message with Debi for an dental chairside assistant regarding patient. Will await return call. Addendum: 12/28/18 at 1342 by Aniya Narayanan LCSW Josh from the [facility] phoned. If patient gets to the point where he is able to function at a board and care level, they may be able to refer him to [facility] with [facility] funding through [facility] and thus help with placement. Patient has too many medical needs at this time and would probably need SNF when he is no longer in need of acute psychiatric placement. Josh will discuss patient's case and call back with any advice they can offer. Addendum: 12/28/18 at 1634 by Aniya Narayanan LCSW Danii with [facility] sent update on placement. Many facilities have been called and information faxed but no placement at this time. Copy of fax detailing facilities contacted placed in chart.
--- NOTE | 2018-12-28 09:15 | NUR ---
OBSERVATION: PT IS RESTLESS AND YELLING OUT. NO SIGN OF DISTRESS OR PAIN. WILL CONTINUE TO MONITOR
--- NOTE | 2018-12-28 09:30 | NUR ---
OBSERVATION: DR WALLACE CAME IN TO LISTEN TO HIS HEART. PT WAS TALKING TO THE DOCTOR. PT IS KNOW DOIN PHYSICAL THERAPY. NO SIGNS OF DISTRESS OR PAIN. WILL CONTINUE TO MONITOR
--- NOTE | 2018-12-28 09:30 | NUR ---
PATIENT RESTRAINTS ARE OFF PER DR. WALLACE.
--- NOTE | 2018-12-28 09:45 | NUR ---
OBSERVATION: PT PERFORMED HYGIENE CARE WITH ALITTLE ASSISTANCE, ATE BREAKFAST NOW PT IS LAYING DOWN NO PAIN OR DISTRESS AT THIS TIME. WILL CONTINUE TO MONITOR
--- NOTE | 2018-12-28 10:01 | NUR ---
OBSERVATIONS: DR KEARNS CAME IN TO SEE THE PATIENT BUT HE WAS SLEEP. NO SIGNS OF PAIN OR DISTRESS. WILL CONTINUE TO MONITOR
--- NOTE | 2018-12-28 10:15 | NUR ---
OBSERVATIONS: PT AT THIS TIME IS SLEEPING. NO SIGNS OF DISTRESS OR PAIN. WILL CONTINUE TO MONITOR
--- NOTE | 2018-12-28 10:30 | NUR ---
OBSERVATIONS: PT USED THE URINAL AND LAYED BACK DOWN. NO PAIN OR DISTRESS. WILL CONTINUE TO MONITOR
--- NOTE | 2018-12-28 10:45 | NUR ---
OBSERVATION: PT IS SITTING UP AND TALKING. NO SIGNS OF PAIN OR DISTRESS. WILL CONTINUE TO MONITOR
--- NOTE | 2018-12-28 11:00 | NUR ---
OBSERVATION: THE PSYCHIC DDOCTOR CAME IN TO EVALUATE THE PT. HE WAS VERY COOPERATIVE AND ANSWERED ALL THE QUESTIONS. PT ATE SOME PUDDING AND DRANK SOME JUICE
--- NOTE | 2018-12-28 11:15 | NUR ---
OBSERVATION: PT ATE SOME PUDDING AND ASKED IF HE COULD MOVE TO A ROOM WITH A TV IN IT. I NOTIFIED THE NURSE. PT IS SITING UP SAYING THAT HIS BACK IS SORE. NO PAIN OR DISTRESS.WILL CONTINUE TO MONITOR
--- NOTE | 2018-12-28 11:30 | NUR ---
OBSERVATION: PT ASKING FOR A BREATHING TREATMENT. THE RT WAS NOTIFIED. PT IS RESTLESS NO SIGNS OF PAIN OR DISTRESS. WILL CONTINUE TO BE MONITOR
--- NOTE | 2018-12-28 11:35 | NUR ---
PATIENT WANTS AND EATING PUDDING AT THIS TIME.
--- NOTE | 2018-12-28 11:45 | NUR ---
OBSERVATION: PT RECEIVED HIS BREATHING TREATMENT. LAYING DOWN
[2018-12-28] MEDS: IPRATROPIUM/ALBUTEROL SULFATE 3 ML AMPUL.NEB (DUONEB) INH PRN (11:56)
--- NOTE | 2018-12-28 12:00 | NUR ---
OBSERVATION: PT IS LAYING DOWN AT THIS TIME. NO SIGNS OF PAIN OR DISTRESS. WILL CONTINUE TO MONITOR
[2018-12-28 12:07] VITALS: BP_SYST 139
--- NOTE | 2018-12-28 12:15 | NUR ---
OBSERVATION: PT JUST FINISHED EATING HIS LUNCH. TALKING ABOUT HOW HE WANTS TO WATCH TV. THE NURSE GAVE MEDS AND PT IS NOW LAYING DOWN
--- NOTE | 2018-12-28 12:30 | NUR ---
OBSERVATION: PT IS LAYING DOWN TRYING TO TAKE A NAP. NO SIGNS OF PAIN OR DISTRESS. WILL CONTINUE TO MONITOR
--- NOTE | 2018-12-28 12:45 | NUR ---
OBSERVATION: PT AT THIS TIME IS SLEEPING IN THE BED MOVING AROUND. NO SIGN OF DISTRESS. WILL CONTINUE TO MONITOR
--- NOTE | 2018-12-28 13:00 | NUR ---
OBSERVATION: PT IS SITTING UP DRINKING WATER ASKING TO WATCH TV. PT ASKED TO USE THE URINAL
--- NOTE | 2018-12-28 13:15 | NUR ---
OBSERVATION: PT IS SITTING UP AT THE END OF BED. HE SAID THAT HIS BACK IS HURTING FOR LAYING DOWN FOR SO LONG. NO PAIN..WILL CONTINUE TO MONITOR
--- NOTE | 2018-12-28 13:20 | NUR ---
Nutrition F/U RD reviewed pt's current EMR including diet Hx, physician notes, nursing notes, pertinent labs/meds/procedures, care trends and care activity. Current Diet Order: Pureed 2gm Na diet x 5 days Subjective information: Pt seen restless in bed, w/ sitter at bedside. Pt tried to get off the bed earlier and stated that he needs to use the bathroom. Pt continues w/ negligible PO intake and is awaiting transfer to [facility]. Per EMR, pt w/ low BP, last BM 12/26/18 x 2. Per huddle discussion, plan for pt is to decrease medication. Pt is at increased risk for malnutrition d/t current mental status and poor PO intake. Current PO intake: Negligible 21% ESTIMATED NUTRITIONAL REQUIREMENTS CALORIES/DAY: 0352-7799 kcal/day (25-30 kcal/kg IBW for Obesity) PROTEIN/DAY: 71-134 gm/day (.8-1.5 gm/kg IBW for Renal Dz and COPD) FLUID/DAY: per MD (Renal Dz) D: 1. Morbid Obesity r/t inability to access healthier food choices AEB possible consumption of high calorie food and beverage from fast food restaurants and convenient stores, homelessness and BMI 40 kg/m2. (*ongoing) 2. Inadequate nutrient intake r/t medication intake AEB PO intake not meeting 75% of estimated needs and nursing staff report. (*new) I: 1. Recommend: continuing Pureed Cardiac Low CHOL Low Fat 2gm Na diet. ONS Ensure Enlive comes standard w/ pureed diet and provides additional 1050 kcal and 60 gm protein daily. 2. Consider an alternate route of nutrition support if PO intake does not improve in 3 to 5 days. M: Monitor appetite and PO intake w/ goal of pt meeting at least 75% of estimated nutritional needs, labs trending WNL, normal GI function, skin integrity/wt maintenance. E: RD to F/U within 3-5 days PEPPER CHONG
--- NOTE | 2018-12-28 13:26 | NUR ---
Dietitian Recommendation 1. Recommend: continuing Pureed Cardiac Low CHOL Low Fat 2gm Na diet. ONS Ensure Enlive comes standard w/ pureed diet and provides additional 1050 kcal and 60 gm protein daily. 2. Consider an alternate route of nutrition support if PO intake does not improve in 3 to 5 days. Please see Nutrition F/U note for details. ARLETTE, RD
--- NOTE | 2018-12-28 13:45 | NUR ---
HE GETTING BREATHING TREATMENT NOW AND THE SITTER BESIDE HIM FOR SAFETY
--- NOTE | 2018-12-28 13:57 | NUR ---
PT LAY DOWN IN HIS BED THE SITTER BESIDE HIM
--- NOTE | 2018-12-28 14:16 | NUR ---
OBSERVATION: PT IS SLEEPING IN BED. NO SIGNS OF DISTRESS OR PAIN. WILL CONTINUE TO MONITOR
--- NOTE | 2018-12-28 14:25 | NUR ---
OBSERVATIONS: PT IS STILL SLEEPING AT THIS TIME. WILL CONTINUE TO MONITOR
--- NOTE | 2018-12-28 14:35 | NUR ---
OBSERVATIONS: PT WENT TO THE BATHROOM. BACK IN BED
--- NOTE | 2018-12-28 14:45 | NUR ---
OBSERVATION: PT WENT TO THE BATHROOM. BACK IN BED
--- NOTE | 2018-12-28 15:00 | NUR ---
OBSERVATIONS: NURSE CAME IN TO CHECK ON PATIENT. OFFERED MORE FLUIDS. NO PAIN WILL CONTINUE TO MONITOR
--- NOTE | 2018-12-28 15:15 | NUR ---
OBSERVATION: PATIENT IS LAYING DOWN. NO PAIN OR DISTRESS.WILL CONTINUE MONITOR
--- NOTE | 2018-12-28 15:30 | NUR ---
OBSERVATION: PT IS LAYING DOWN TRYING TO SLEEP. NO PAIN OR DISTRESS. WILL CONTINUE TO MONITOR
--- NOTE | 2018-12-28 15:35 | NUR ---
patient complains "I cant breathe!" Pulse is 130s on auscultation. Dr. Pelaez is paged.
--- NOTE | 2018-12-28 16:00 | NUR ---
Patient attempts to get out of bed. RN manages to convince him to stay in bed at this time.
[2018-12-28] MEDS ORDERED: METOPROLOL TARTRATE 50 MG TABLET PO ONE (16:15)
[2018-12-28] MEDS ORDERED: DILTIAZEM HCL 25 MG/5 ML VIAL IVP PRN (16:15)
--- NOTE | 2018-12-28 16:15 | NUR ---
OBSERVATIONS: PT IS SLEEPING IN THE BED. NO SIGNS OF PAIN AND DISTRESS. WILL CONTINUE TO MONITOR
--- NOTE | 2018-12-28 16:20 | NUR ---
Dr. Pelaez is called. Orders are given. Will be carried out.
[2018-12-28 16:23] VITALS: BP_SYST 142
--- NOTE | 2018-12-28 16:31 | NUR ---
OBSERVATIONS: DID AN EKG.. NURSE CAME IN TO CHECK THE PATIENT
[2018-12-28] MEDS ORDERED: methylPREDNISolone SOD SUCC/PF 62.5 MG/ML VIAL IVP ONE (16:45)
[2018-12-28] MEDS: LORazepam 2 MG/ML VIAL IVP PRN ×2 (16:45→22:43)
--- NOTE | 2018-12-28 16:45 | NUR ---
OBSERVATION: PT RECEIVED MEDICATION AND WENT BACK TO SLEEP..
--- NOTE | 2018-12-28 17:00 | NUR ---
OBSERVATION: PT IS SLEEPING AT THIS TIME. NO PAIN OR DISTRESS. WILL CONTINUE TO MONITOR
--- NOTE | 2018-12-28 17:15 | NUR ---
OBSERVATION: PT GOT UP TO USE THE BATHROOM. ALSO HAD A CHEST X-RAY DONE
--- NOTE | 2018-12-28 17:30 | NUR ---
OBSERVATION: PT IS UP EATING DINER.
--- NOTE | 2018-12-28 17:45 | NUR ---
OBSERVATIONS: PT IS STILL UP EATING DINER AND HAVING A CONVERSATION. MORE ALERT.. NO PAIN OR SIGNS OF DISTRESS. WILL CONTINUE TO MONITOR
--- NOTE | 2018-12-28 18:00 | NUR ---
OBSERVATION: PT IS TRYING TO LAY DOWN BUT IS VERY RESTLESS AND COMPLAINING THAT HE CANT BREATH. THE NURSE WAS NOTIFIED. WILL CONTINUE TO MONITOR
--- NOTE | 2018-12-28 18:15 | NUR ---
Patient is resting, but with periods of agitation, manifested by episodic screaming
--- NOTE | 2018-12-28 18:30 | NUR ---
Patient is resting, but with periods of agitation, manifested by episodic screaming
--- NOTE | 2018-12-28 18:46 | NUR ---
Patient is resting, but with periods of agitation; he attempted to get out of bed, but RN was able to persuade him that he has to stay in bed for safety issues.
--- NOTE | 2018-12-28 19:15 | NUR ---
Pt in bed with eyes closed, attempting to rest. Pt slightly agitated, but showing no s/s of distress or discomfort. Pt alert to voice, but not oriented. Will continue to monitor for safety.
--- NOTE | 2018-12-28 19:30 | NUR ---
ROUNDS PATIENT RESTING IN BED, VITALS STABLE, NO SIGNS OF ANY PAIN AND DISCOMFORT NOTED. ASSESSMENT DONE AND DOCUMENTED. SEE FLOWSHEET. NEEDS ATTENDED TO. SAFETY AND FALL PRECAUTION MEASURES IN PLACED. SITTER AT THE BEDSIDE FOR SAFETY. WILL CONTINUE TO MONITOR.
--- NOTE | 2018-12-28 19:30 | NUR ---
Pt in bed attempting to get out. Able to be calmed down and reoriented to bed. No s/s of distress noted. Will continue to monitor.
[2018-12-28] MEDS: DIPHENHYDRAMINE INJ 50 MG/ML VIAL IM PRN (19:33)
[2018-12-28] MEDS: HALOPERIDOL LACTATE 5 MG/ML VIAL IM PRN ×2 (19:34→23:50)
--- NOTE | 2018-12-28 19:52 | NUR ---
Pt attempting to get out of bed, uncooperative. Security called. No s/s of distress noted.
--- NOTE | 2018-12-28 20:00 | NUR ---
Pt still attempting to get out of bed, uncooperative w/ breathing Tx, taking it off constantly. Pt tachypneic and tachycardia, attempting to leave bed. Will continue to monitor for safety.
[2018-12-28 20:06] VITALS: BP_SYST 123
--- NOTE | 2018-12-28 20:15 | NUR ---
Pt intermittently attempting to get out of bed. Pt becoming agitated, RN at bedside trying to help calm Pt down. Pt starting to show s/s of distress. RN aware. Will continue to monitor.
--- NOTE | 2018-12-28 20:30 | NUR ---
Pt continuing to get out of bed. Pt becoming increasingly agitated and now combative. Security called and now at bedside attempting to help calm Pt down. Will continue to monitor for safety.
--- NOTE | 2018-12-28 20:45 | NUR ---
Pt helped back to bed and oxygen placed to nares. Pt tolerated well, but still attempting to leave bed. Pt SOB d/t fighting to get out of bed. RN aware, will continue to monitor.
--- NOTE | 2018-12-28 20:45 | NUR ---
NOTES PATIENT ON BILATERAL SOFT WRIST RESTRAINTS ORDERED, PATIENT AGITATED, COMBATIVE AND TRYING TO GET OUT OF BED. WILL CONTINUE TO MONITOR.
--- NOTE | 2018-12-28 21:00 | NUR ---
Pt in bed, still remains confused, trying to get out of bed at times. RT at bedside placing Pt on oxygen mask. Will continue to monitor for safety.
--- NOTE | 2018-12-28 21:15 | NUR ---
Pt in bed screaming at times and attempting to take oxygen mask off. Pt reoriented to mask and importance to keep on. Will continue to monitor.
[2018-12-28] MEDS: METOPROLOL TARTRATE 50 MG TABLET PO SCH (21:26)
[2018-12-28] MEDS: methylPREDNISolone SOD SUCC/PF 62.5 MG/ML VIAL IVP SCH (21:26)
--- NOTE | 2018-12-28 21:30 | NUR ---
Pt in bed attempting to sleep, confused, screaming non coherent words at times. Pt now in restraints, non re-directable, uncooperative and combative. Will continue to monitor.
--- NOTE | 2018-12-28 21:45 | NUR ---
Pt in bed restless attempting to fall asleep. Pt talking to self at times. No s/s of distress noted at this time. Will continue to monitor for safety.
--- NOTE | 2018-12-28 22:00 | NUR ---
Pt in bed attempting to sleep. Pt screaming at times and taking off gown and blanket. Helped to put gown back on, Pt refused. Covered Pt with blanket. Will continue to attempt to reapply gown. Will continue to monitor for safety.
--- NOTE | 2018-12-28 22:14 | NUR ---
Pt in bed attempting to sleep. Still screaming at times. No s/s of distress noted at this time. Will continue to monitor for safety.
--- NOTE | 2018-12-28 22:30 | NUR ---
Pt resting. Attempting to get out of bed at times. Reoriented to bed and importance of not getting out. Will continue to monitor for safety.
--- NOTE | 2018-12-28 22:43 | NUR ---
ROUNDS Patient noted to be more agitated, Ativan 1 mg IV given as ordered PRN for agitation. Will continue to monitor.
--- NOTE | 2018-12-28 22:45 | NUR ---
Pt in bed getting more agitated, trying to take off mask and attempting to leave bed. RN at bedside helping to reorient and educate Pt. Will continue to monitor.
--- NOTE | 2018-12-28 23:01 | NUR ---
PT attempting to rest in bed. Pt still attempting to get out of bed a times. Reoriented and education provided. Will continue to monitor.
--- NOTE | 2018-12-28 23:15 | NUR ---
Pt resting in bed. RT at bedside providing a breathing Tx. PT tolerating well. Will continue to monitor.
--- NOTE | 2018-12-28 23:30 | NUR ---
Pt in bed restless w/ slight agitation, having periods of screaming. Will continue to monitor for safety.
--- NOTE | 2018-12-28 23:45 | NUR ---
Pt resting, no s/s of distress noted. Will continue to monitor.
[2018-12-28] MEDS: DIPHENHYDRAMINE INJ 50 MG/ML VIAL IVP PRN (23:49)
[2018-12-29] VITALS (8 sets, daily range): BP systolic 97–123
--- NOTE | 2018-12-29 | NUR ---
Pt in bed restless screaming, getting agitated. RN made aware. Will continue to monitor.
--- NOTE | 2018-12-29 00:15 | NUR ---
Pt restless in bed, attempting to go to sleep. No s/s of distress noted. Will continue to monitor.
--- NOTE | 2018-12-29 00:30 | NUR ---
Pt in bed attempting to sleep. Pt still screaming at times. Will continue to monitor for safety.
--- NOTE | 2018-12-29 00:44 | NUR ---
Pt restless, tossing and turning in the bed. Will continue to monitor.
--- NOTE | 2018-12-29 01:00 | NUR ---
Pt in an out of sleep, still restless. No agitation noted at this time. Will continue to monitor.
--- NOTE | 2018-12-29 01:15 | NUR ---
NOTES Called outside pharmacy and spoke to pharmacist Chaya to clarify patient's Cardizem IVP dose, stated ok to give ordered 25 mg IVP over 2 mins. will continue to monitor.
--- NOTE | 2018-12-29 01:15 | NUR ---
Pt in bed asleep. still restless at times. Will continue to monitor.
--- NOTE | 2018-12-29 01:30 | NUR ---
Pt in bed restless. RN at bedside administering medication. Pt uncooperative at first, but able to be redirected and educated. Will continue to monitor.
--- NOTE | 2018-12-29 01:32 | NUR ---
NOTES Patient's HR sustaining on the 130's, Cardizem 25 mg IVP given as ordered PRN. Will continue to monitor.
--- NOTE | 2018-12-29 01:44 | NUR ---
Pt in bed asleep. Agitated at times, will continue to monitor.
--- NOTE | 2018-12-29 02:01 | NUR ---
Pt sleeping in bed. Restless at times, will continue to monitor.
--- NOTE | 2018-12-29 02:16 | NUR ---
Pt asleep in bed. Periodically screaming incomprehensible statements. Will continue to monitor for safety.
--- NOTE | 2018-12-29 02:30 | NUR ---
Pt sleeping in bed. Restless at times, will continue to monitor.
--- NOTE | 2018-12-29 02:44 | NUR ---
Pt in bed asleep. No s/s of distress noted. Will continue to monitor.
--- NOTE | 2018-12-29 03:00 | NUR ---
Patients eyes are closed but is restless and moaning intermittently, visible chest rise and fall, 94-98% o2 saturation, will monitor.
--- NOTE | 2018-12-29 03:15 | NUR ---
Patient attempting to get out of bed. Reoriented patient to place and time but patient is unable. Will monitor.
--- NOTE | 2018-12-29 03:30 | NUR ---
Pt asleep in bed. Restless at times. Will continue to monitor.
--- NOTE | 2018-12-29 03:45 | NUR ---
Pt sleeping in bed. no agitation noted. Will continue to monitor for safety.
--- NOTE | 2018-12-29 04:02 | NUR ---
Pt in bed asleep. Some agitation noted at times, but able to help calm pt down. Will continue to monitor.
--- NOTE | 2018-12-29 04:15 | NUR ---
Pt asleep. Periodic snoring noted. Will continue to monitor.
--- NOTE | 2018-12-29 04:30 | NUR ---
Pt asleep in bed. No s/s of agitation noted. Will continue to monitor.
--- NOTE | 2018-12-29 04:45 | NUR ---
Pt remains asleep in bed. No restlessness at this time.
--- NOTE | 2018-12-29 05:00 | NUR ---
Pt in bed asleep. restless at times. Will continue to monitor.
--- NOTE | 2018-12-29 05:15 | NUR ---
Pt in and out of sleep. Attempting to get out of bed. Oriented back to bed. Will continue to monitor Pt.
--- NOTE | 2018-12-29 05:30 | NUR ---
Pt in bed asleep. Attempting to get out of bed at times. Reoriented back to bed for safety. Will continue to monitor.
--- NOTE | 2018-12-29 05:47 | NUR ---
Pt asleep in bed. No s/s of distress noted. Will continue to monitor.
--- NOTE | 2018-12-29 06:00 | NUR ---
Pt resting in bed, in and out of sleep. No agitation at this time. Will continue to monitor.
[2018-12-29] MEDS: METOPROLOL TARTRATE 50 MG TABLET PO SCH ×3 (06:37→21:38)
[2018-12-29] MEDS: methylPREDNISolone SOD SUCC/PF 62.5 MG/ML VIAL IVP SCH ×3 (06:37→21:39)
[2018-12-29] MEDS: QUEtiapine FUMARATE 100 MG TABLET PO SCH ×4 (06:38→18:21)
--- NOTE | 2018-12-29 06:50 | NUR ---
CLOSING NOTES PATIENT RESTING QUIETLY AT THIS TIME, VITALS STABLE, NO SIGNS OF ANY PAIN NOTED. ALL NEEDS ATTENDED TO. SITTER AT THE BEDSIDE. WILL ENDORSE TO INCOMING SHIFT.
--- NOTE | 2018-12-29 07:15 | NUR ---
AM ROUNDS: PATIENT SLEEPING DURING ROUNDS.WITH BILATERAL SOFT WRIST RESTRAINT ON ORDERED. ON ,WITH SITTER AT THE BEDSIDE.OBESE PATIENT,ON SIMPLE MASK AT 6L/MIN.NON LABORED.SAFETY PRECAUTION RENDERED. CONDITION GUARDED.
[2018-12-29] MEDS: IPRATROPIUM/ALBUTEROL SULFATE 3 ML AMPUL.NEB (DUONEB) INH SCH ×3 (07:47→20:13)
[2018-12-29] MEDS: LACTULOSE 20 GM/30 ML UDC PO SCH ×2 (08:54→21:38)
[2018-12-29] MEDS: RIFAXIMIN 550 MG TABLET PO SCH ×2 (08:54→21:39)
[2018-12-29] MEDS: MUPIROCIN 2% TOPICAL OINTMENT 22 GM TP SCH ×2 (09:05→21:00)
[2018-12-29] MEDS ORDERED: FUROSEMIDE 40 MG/4 ML VIAL IVP ONE (09:30)
--- NOTE | 2018-12-29 09:30 | NUR ---
Pt note Patient refusing therapy at this time.
--- NOTE | 2018-12-29 10:00 | NUR ---
Rn rounds: With sitter at the bedside. Patient dosing on and off,bilateral soft wrist restrain on. on simple mask,good saturation. Mild wheezing noted.
--- NOTE | 2018-12-29 12:17 | NUR ---
RN NOTES: PATIENT DOSING ON AND OFF.PATIENT TOOK HIS PO MEDS,CRUSHED IT AND GAVE IT WITH CHOCOLATE PUDDING.ENCOURAGE PATIENT TO EAT,WHEN FULLY AWAKE,SITTER TO FEED THE PATIENT.
--- NOTE | 2018-12-29 13:00 | NUR ---
Patient went to icu after surgery. Addendum: 12/29/18 at 1312 by Holly Whipple RN Not intended for the above patient.
--- NOTE | 2018-12-29 14:28 | NUR ---
RN ROUNDS: WITH SITTER AT THE BEDSIDE. NO DISTRESS.
--- NOTE | 2018-12-29 15:18 | NUR ---
RN ROUNDS: WITH SITTER AT THE BEDSIDE. NO RESPIRATORY DISTRESS THIS TIME.CONTINUE MONITOR.
[2018-12-29] MEDS ORDERED: LORazepam 2 MG/ML VIAL IM PRN (16:15)
[2018-12-29] MEDS ORDERED: DIGOXIN 0.5 MG/2 ML AMP IVP ONE (16:15)
--- NOTE | 2018-12-29 18:30 | NUR ---
Closing Notes: Bilateral soft wrist restraint off x 15mins,Patient started being restless.Called security and put back bilateral soft wrist restraint. Patient became calm and relax,went back to sleep. Patient refused dinner and Seroquel meds.Patient spit it out . No distress this time.Continue to monitor. Sitter at the bedside.
--- NOTE | 2018-12-29 19:30 | NUR ---
ROUNDS PATIENT IN BED, EYES CLOSED, NOT IN DISTRESS, VITALS STABLE, ON BILATERAL SOFT WRIST RESTRAINTS. NO SIGNS OF SOB NOR PAIN AND DISCOMFORT NOTED. PATIENT WITH PERIODS OF AGITATION AND RESTLESSNESS. NEEDS ATTENDED TO. IV SITE PATENT ON THE LEFT FOREARM G. 20. SAFETY MEASURES IN PLACED. SITTER AT THE BEDSIDE FOR SAFETY.
--- NOTE | 2018-12-29 19:35 | NUR ---
@ 1930 PM: Patient is sleeping comfortably with head of bed raised upright, bilateral soft wrist restraints on, and oxygen mask on. Patient randomly speaks garbled speech and sometimes moves his right leg restlessly while asleep. @ 1830 PM: Patient became restless and combative while his O2 SAT was being checked with the pulse oximeter of the vitals machine. Security assisted with putting patient's bilateral soft wrist restraints back on and patient became calm, drank 120 ml Cranberry Juice with assistance, voided urine x 1, and went back to sleep. Patient was given a bed bath and change of linen.
[2018-12-29] MEDS: DIPHENHYDRAMINE INJ 50 MG/ML VIAL IVP PRN (20:08)
[2018-12-29] MEDS: HALOPERIDOL LACTATE 5 MG/ML VIAL IM PRN (20:08)
--- NOTE | 2018-12-29 20:08 | NUR ---
@ 1999 PM: Patient suddenly moved excessively restless in bed and dangled feet off the bed, trying to get out of bed while laying down. Patient started yelling and became restless. Charge nurse, 2 nurses, and I worked together to help patient to calm down and pull patient up towards the head of the bed and fix patient's pillows, blankets, and soft wrist restraints. Patient went back to sleep.
--- NOTE | 2018-12-29 20:10 | NUR ---
NOTES PATIENT AGITATED, SCREAMING AND SHOUTING WITH FEET ON THE SIDERAILS. HALDOL 5 MG IM AND BENADRYL 50 MG IV GIVEN ORDERED PRN. WILL CONTINUE TO MONITOR.
--- NOTE | 2018-12-29 20:55 | NUR ---
Patient is asleep with oxygen mask on and bilateral soft wrist restraints on. Patient suddenly yells and shakes legs and shoulders restlessly, randomly at different times, while sleeping. Patient's current O2 SAT is 95. Will continue to monitor.
--- NOTE | 2018-12-29 21:18 | NUR ---
Patient drank a 120 ml cup of apple juice with assistance and use of a spoon. Patient ate 2 tablespoons of jello. Patient went back to sleep with oxygen mask placed back on and bilateral soft wrist restraints in place. Will continue to monitor.
--- NOTE | 2018-12-29 21:40 | NUR ---
ROUNDS/MEDICATIONS DUE MEDICATIONS GIVEN ORDERED. NEEDS ATTENDED TO. WILL CONTINUE TO MONITOR.
--- NOTE | 2018-12-29 22:25 | NUR ---
Patient's oxygen mask was set aside for a moment so that patient could drink water. Patient kept his mouth open while being served 5 consecutive cups of water until he closed his mouth and shook his head to indicate that he was done drinking. Patient's oxygen mask was placed back on, with bilateral soft wrist restraints in place. Patient went back to sleep. Will continue to monitor.
--- NOTE | 2018-12-29 23:36 | NUR ---
Patient sleeping comfortably in bed in semi-White's position during the past hour. O2 Sat 96% with simple face mask on. Bilateral soft wrist restraints in place. No signs of distress noted at this time. Will continue to monitor.
[2018-12-30 00:01] VITALS: BP_SYST 103
[2018-12-30] MEDS: IPRATROPIUM/ALBUTEROL SULFATE 3 ML AMPUL.NEB (DUONEB) INH SCH ×4 (01:00→20:20)
[2018-12-30] MEDS: LORazepam 2 MG/ML VIAL IVP PRN (03:25)
--- NOTE | 2018-12-30 03:25 | NUR ---
ROUNDS PATIENT AGITATED, SCREAMING , SHOUTING AND KICKING AT TIMES. ATIVAN 1 MG IV GIVEN ORDERED PRN. WILL CONTINUE TO MONITOR.
[2018-12-30] MEDS: methylPREDNISolone SOD SUCC/PF 62.5 MG/ML VIAL IVP SCH ×3 (06:23→21:38)
[2018-12-30] MEDS: METOPROLOL TARTRATE 50 MG TABLET PO SCH ×3 (06:24→21:58)
[2018-12-30] MEDS: QUEtiapine FUMARATE 100 MG TABLET PO SCH ×4 (06:24→16:19)
--- NOTE | 2018-12-30 06:45 | NUR ---
CLOSING NOTES PATIENT RESTING QUIETLY AT THIS TIME, VITALS STABLE, NO SIGNS OF ANY PAIN AT THIS TIME. ALL NEEDS ATTENDED TO. SAFETY MEASURES MAINTAINED. SITTER AT THE BEDSIDE. WILL ENDORSE TO INCOMING SHIFT.
[2018-12-30 07:13] LABS: BASOPHILS % (AUTO) 0.2 % (0.0-2.0); HEMATOCRIT 39.9 % (36-54); HEMOGLOBIN 12.6 g/dL (14.0-18.0); LYMPHOCYTES # (AUTO) 0.6 K/uL (1.0-5.5); MEAN CORPUSCULAR HEMOGLOBIN 26 pg (27-31); MEAN CORPUSCULAR HGB CONC 32 % (32-36); MEAN CORPUSCULAR VOLUME 81 fL (79.0-98.0); MONOCYTES # (AUTO) 0.5 K/uL (0.0-1.0); NEUTROPHILS # (AUTO) 11.8 K/uL (1.8-7.7); NEUTROPHILS % (AUTO) 90.8 % (40.0-70.0); PLATELET COUNT (AUTO) 134 K/uL (130-430); RED CELL DISTRIBUTION WIDTH 26.3 % (9.0-15.0)
--- NOTE | 2018-12-30 07:13 | NUR ---
OPENING NOTE Received the report at bedside. Patient sleeping at this time in semi-White's position. No acute distress. On O2 6L/min via mask. Skin warm and dry to touch. SL intact to left hand, no redness, patent. Bilateral soft wrist restraint in placed. Bed locked in low position, side rails up, bed alarm on. Will continue to monitor and sit with patient for direct observation.
--- NOTE | 2018-12-30 07:21 | NUR ---
BREATHING TREATMENT RT give breathing treatment at this time. Patient remains in the bed with eyes closed. No acute distress. Bilateral soft wrist restraint in placed. HOB elevated. Continue sit with patient at bedside.
[2018-12-30 07:24] LABS: ALBUMIN 2.7 g/dL (3.4-4.8); CALCIUM 9.2 mg/dL (8.4-11.0); CREATININE 1.82 mg/dL (0.55-1.30); TOTAL BILIRUBIN 6.4 mg/dL (0.0-1.0)
[2018-12-30 07:29] LABS: POTASSIUM 5.1 mmol/L (3.5-5.1)
[2018-12-30 07:48] VITALS: BP_SYST 98
--- NOTE | 2018-12-30 08:34 | NUR ---
Patient remains sleeping comfortable. Continue on O2 6L/min via mask. Bilateral soft wrist restraint in placed. Continue sit with patient for direct observation.
[2018-12-30] MEDS: MUPIROCIN 2% TOPICAL OINTMENT 22 GM TP SCH ×2 (09:15→21:39)
[2018-12-30] MEDS: LACTULOSE 20 GM/30 ML UDC PO SCH ×2 (09:16→21:39)
[2018-12-30] MEDS: DIGOXIN 0.5 MG/2 ML AMP IVP SCH (09:16)
[2018-12-30] MEDS: RIFAXIMIN 550 MG TABLET PO SCH ×2 (09:16→21:38)
--- NOTE | 2018-12-30 10:09 | NUR ---
SEEN AND EXAMINED BY CHAYITO TEE.
--- NOTE | 2018-12-30 10:25 | NUR ---
SEEN AND EXAMINED BY URMILA PARKER ZOUHAIR WITH ORDER RECEIVED.
--- NOTE | 2018-12-30 11:30 | NUR ---
SLEEPING Patient remains sleeping at this time. No acute distress. Continue on O2 6L/min via mask. Bilateral soft restraints in placed. Released Q 2hr. Able to move hands and fingers without difficulty. Safety measure maintained. Sit with patient at bedside and direct observation.
[2018-12-30 12:00] VITALS: BP_SYST 110
[2018-12-30 12:05] VITALS: BP_SYST 110
--- NOTE | 2018-12-30 12:56 | NUR ---
LUNCH Patient consume 40% of the lunch, needs to be feed. Patient sitting in the upright position. No acute distress. Continue on 1:1 sitter. Will continue to monitor.
--- NOTE | 2018-12-30 14:46 | NUR ---
MEDS TAKEN Patient resting in the bed. No acute distress. Solu-Medrol IVP and Lopressor PO given as ordered. 200ml of water taken without swallow difficulty. Patient in semi-Flower's position. Safety measure maintained. Bilateral soft wrist restraint in placed. Continue sit with patient at bedside for direct observation.
--- NOTE | 2018-12-30 15:07 | NUR ---
YELLING WHILE SLEEPING Patient yelling while sleeping, only yelling one time, may be dreaming. Patient did not open the eyes. Continue 1:1 sitter for direct observation.
--- NOTE | 2018-12-30 15:34 | NUR ---
RECEIVED THE CALL FROM DR. PEARSON, [facility] Received the call from Dr. Pearson via phone. Per Dr. Pearson, she will sign off the patient today and not to come to see the patient. She cannot do anything to the patient on her point, and notify Dr. Pelaez when he comes.
[2018-12-30 15:56] VITALS: BP_SYST 133
--- NOTE | 2018-12-30 17:00 | NUR ---
SEEN BY BRITNEY ROSAS WITH ORDER INCREASE LACTULOSE FROM 15ML PO BID TO 30ML PO EVERY 8HR.
--- NOTE | 2018-12-30 17:58 | NUR ---
SEEN BY [facility] MEDINA Informed to Dr. Gutierrez, patient with poor intake only 400ml of oral liquid and one time urinary since this morning, and patient with swollen on bilateral upper and lower extremities. Dr. Gutierrez order IVF and Lasix.
[2018-12-30] MEDS ORDERED: FUROSEMIDE 40 MG/4 ML VIAL IVP ONE (18:00)
[2018-12-30] MEDS: 0.45% NACL 1,000 ML IV SCH (18:15)
--- NOTE | 2018-12-30 18:49 | NUR ---
CLOSING NOTE Patient sleeping in the bed comfortable. No acute distress. Continue on O2 6L/min via mask. Skin warm and dry to touch. IV intact to left hand, no redness, no drainage. On 1/2NS at 70ml/hr, infusing well. Bilateral soft wrist restraint in placed. Released every 2 hr, able to move hands and fingers without difficulty. Sister at bedside for direct observation all the time. Safety measure maintained. Bed locked in low position, side rails x4 up, bed alarm on. Will endorse to next shift nurse.
[2018-12-30 19:55] VITALS: BP_SYST 112
--- NOTE | 2018-12-30 20:00 | NUR ---
INITIAL NOTE AT INITIAL ASSESSMENT, PATIENT IS RESTING IN BED, STABLE, NO SIGNS OF RESPIRATORY DISTRESS. SITTER IS AT BEDSIDE. PATIENT VERBALIZES NO PAIN AT THIS TIME. PLAN OF CARE FOR THE EVENING IS COMMUNICATED WITH THE PATIENT. BED IS LOCKED, ALARMED, AND AT THE LOWEST LEVEL. FALL, SAFETY, RESPIRATORY, ASPIRATION, AND SUICIDE PRECAUTIONS WILL BE IN PLACE THROUGHOUT THE SHIFT. RESTRAINT CHECKS WILL BE COMPLETED AT LEAST [id number] THROUGHOUT THE SHIFT. SITTER WILL BE AT BEDSIDE THROUGHOUT THE SHIFT FOR CLOSE MONITORING.
--- NOTE | 2018-12-30 22:00 | NUR ---
NOTE SCHEDULED MEDICATION GIVEN AT THIS TIME, PATIENT TOLERATED WELL. PATIENT IS RESTING IN BED, STABLE, NO SIGNS OF RESPIRATORY DISTRESS. BED IS LOCKED, ALARMED, AND AT THE LOWEST LEVEL. SITTER IS AT BEDSIDE.
--- NOTE | 2018-12-31 | NUR ---
NOTE PATIENT IS SLEEPING, STABLE, NO SIGNS OF RESPIRATORY DISTRESS. BED IS LOCKED, ALARMED, AND AT THE LOWEST LEVEL. SITTER IS AT BEDSIDE.
[2018-12-31 00:25] VITALS: BP_SYST 111
[2018-12-31] MEDS: IPRATROPIUM/ALBUTEROL SULFATE 3 ML AMPUL.NEB (DUONEB) INH SCH ×4 (01:00→19:58)
--- NOTE | 2018-12-31 02:00 | NUR ---
NOTE PATIENT IS SLEEPING, STABLE, NO SIGNS OF RESPIRATORY DISTRESS. BED IS LOCKED, ALARMED, AND AT THE LOWEST LEVEL. SITTER IS AT BEDSIDE.
--- NOTE | 2018-12-31 04:00 | NUR ---
NOTE PATIENT IS SLEEPING, STABLE, NO SIGNS OF RESPIRATORY DISTRESS. BED IS LOCKED, ALARMED, AND AT THE LOWEST LEVEL. SITTER IS AT BEDSIDE.
--- NOTE | 2018-12-31 06:00 | NUR ---
CLOSING NOTE PATIENT SLEPT WELL THROUGHOUT THE SHIFT. AT THIS TIME, PATIENT IS RESTING IN BED, STABLE, NO SIGNS OF RESPIRATORY DISTRESS. CALL LIGHT IS PLACED WITHIN REACH. BED IS LOCKED, ALARMED, AND AT THE LOWEST LEVEL. FALL, SAFETY, RESPIRATORY, AND SUICIDE PRECAUTIONS HAVE BEEN IN PLACE THROUGHOUT THE NIGHT. WILL CONTINUE TO MONITOR UNTIL SHIFT REPORT IS GIVEN AT BEDSIDE TO AM NURSE. SITTER HAS BEEN AT BEDSIDE THROUGHOUT THE NIGHT.
[2018-12-31] MEDS: QUEtiapine FUMARATE 100 MG TABLET PO SCH ×3 (06:13→17:42)
[2018-12-31] MEDS: LACTULOSE 20 GM/30 ML UDC PO SCH ×3 (06:13→21:01)
[2018-12-31] MEDS: methylPREDNISolone SOD SUCC/PF 62.5 MG/ML VIAL IVP SCH ×3 (06:14→21:01)
[2018-12-31] MEDS: METOPROLOL TARTRATE 50 MG TABLET PO SCH ×3 (06:14→21:02)
[2018-12-31] MEDS: 0.45% NACL 1,000 ML IV SCH ×2 (06:22→20:11)
[2018-12-31 06:48] LABS: ALBUMIN 2.7 g/dL (3.4-4.8); CALCIUM 9.3 mg/dL (8.4-11.0); CREATININE 1.4 mg/dL (0.55-1.30); DIGOXIN 0.7 ng/mL (0.80-2.00); POTASSIUM 4.8 mmol/L (3.5-5.1); TOTAL BILIRUBIN 5.5 mg/dL (0.0-1.0)
[2018-12-31 08:00] VITALS: BP_SYST 122
--- NOTE | 2018-12-31 08:00 | NUR ---
ASSUMPTION OF CARE: RECEIVED PT ASLEEP, AROUSED VIA TACTILE STIMULI, DX:INADEQUATE PERFUSION, R/T CHEST PAIN. NO C/O OF ANY PAIN AT THIS TIME, BREATH SOUNDS ARE DIMINISHED, BREATHING UNLABORED, O2 SAT=95-96% ON SIMPLE MASK WITH 5.0L O2, AFEBRILE, COLOR IS GOOD, SKIN WARM, DRY TO TOUCH, IV SITE INTACT, PATENT, NO REDNESS OR SWELLING, PITTING EDEMA NOTED IN UPPER AND LOWER EXTREMITIES, LEGS RAISED ON PILLOW FOR FLUID RETURN, NO IMMEDIATE RISK OBSERVED AT THIS TIME, WILL CON'T TO MONITOR CLOSELY.
--- NOTE | 2018-12-31 09:00 | NUR ---
SPORTS MANAGEMENT INTERN: MORNING MEDS GIVEN PER ORDERED BY Mazin, DIGOXIN GIVEN FOR SUSTAINED HR=>160, TOLERATED WELL, WILL CON'T TO MONITOR AND ASSESS.
[2018-12-31] MEDS: RIFAXIMIN 550 MG TABLET PO SCH ×2 (09:06→21:01)
[2018-12-31] MEDS: MUPIROCIN 2% TOPICAL OINTMENT 22 GM TP SCH ×2 (09:06→21:06)
[2018-12-31] MEDS: DIGOXIN 0.5 MG/2 ML AMP IVP SCH (09:07)
--- NOTE | 2018-12-31 09:15 | NUR ---
DIGOXIN: PT HAS HR=96, MED EFFECTIVE, WILL CON'T TO MONITOR AND ASSESS.
--- NOTE | 2018-12-31 09:30 | NUR ---
AGITATION: PT EXHIBITING INCREASED LEVEL OF AGITATION/ANXIETY WITH LOUD YELLING, TRASHING AROUND IN BED, TRYING TO GET OUT OF BED, UNABLE TO CALM, HALDOL 5MG IM GIVEN, PER ORDERED BY Mazin, TOLERATED WELL, WILL CON'T TO MONITOR AND ASSESS.
[2018-12-31] MEDS: HALOPERIDOL LACTATE 5 MG/ML VIAL IM PRN ×2 (09:31→17:42)
--- NOTE | 2018-12-31 09:49 | NUR ---
PT note Physical therapy on hold for today due to increase HR, nursing aware.; Will try again tomorrow.
[2018-12-31 12:00] VITALS: BP_SYST 131
--- NOTE | 2018-12-31 12:00 | NUR ---
NURSES NOTES: PT HAVING PERIODS OF RESTLESSNESS/AGITATION, REPOSITIONED FOR COMFORT, REORIENTED TO SITUATION, IS CONFUSED, UNCOOPERATIVE, WILL CONTINUE TO MONITOR AND ASSESS.
--- NOTE | 2018-12-31 13:22 | NUR ---
Hydroelectric Plant Electrician: JAVASCRIPT ENGINEER received a status update from [facility] in . to ptJosh Seymour. this is the info that was included. SILVA Davison, who stated no beds were available SILVA Alicea stated no beds available for the night. SILVA Sauceda stated no beds available, pending on wait list SILVA Guzman stated no beds available SW. Martins (did not indicate any availability on form SW Yasmin indicated no beds were available SILVA Schilling indicated no beds available and "not accepting outside of the area" There is also a phone number on this form, but not a name. The phone number is [phone] There is also a name, Codey and a notation stating he is from [place].
--- NOTE | 2018-12-31 14:00 | NUR ---
NURSES NOTES: PT IS STABLE WHILE SLEEPING IN POSITION OF COMFORT, NO DISTRESS NOTED AT THIS TIME, WILL CON'T TO MONITOR CLOSELY, ASSESS FREQUENTLY (Q15 MINS).
[2018-12-31 16:00] VITALS: BP_SYST 125
--- NOTE | 2018-12-31 16:00 | NUR ---
NURSES NOTES: PT SLEEPING IN POSITION OF COMFORT, NO DISTRESS NOTED AT THIS TIME, NO INDICATION OF PAIN OR DISCOMFORT, NEEDS MET, WILL CON'T TO MONITOR AND ASSESS.
--- NOTE | 2018-12-31 17:30 | NUR ---
VISIT: AT BEDSIDE FOR ASSESSMENT OF PT, NEW ORDERS GIVEN, WILL CON'T WITH POC.
--- NOTE | 2018-12-31 18:00 | NUR ---
END OF SHIFT: PT IS SLEEPING IN POSITIONED OF COMFORT, REMAINS FREE OF INJURY/FALL, NO C/O PAIN, WILL CON'T TO MONITOR, ENDORSE TO FISH CUTTING MACHINE OPERATOR NURSE.
--- NOTE | 2018-12-31 19:29 | NUR ---
ASSUMPTION OF CARE Addendum: 12/31/18 at 1935 by Zander Lincoln RN ASSUMPTION OF CARE Received report from AM shift RN. Pt in bed sleeping arousable to voice. VSS tolerating 5L simple mask with 97 O2 saturation. IV patent with no infiltration noted. Denies chest pain. Bilateral soft wrist restraint in placed with no redness around the wrist and good circulation noted. Bilateral upper and lower extremity edema noted. Safety precaution observed. Call light within reach. Will continue to monitor Pt.
[2018-12-31 20:00] VITALS: BP_SYST 136
[2018-12-31] MEDS: DILTIAZEM HCL 25 MG/5 ML VIAL IVP PRN (22:04)
[2019-01-01] VITALS (8 sets, daily range): BP systolic 123–146
--- NOTE | 2019-01-01 | NUR ---
Pt in bed, no acute distress at this time. Will continue to monitor Pt.
[2019-01-01] MEDS: IPRATROPIUM/ALBUTEROL SULFATE 3 ML AMPUL.NEB (DUONEB) INH SCH ×4 (01:00→19:45)
--- NOTE | 2019-01-01 04:00 | NUR ---
Pt in bed, no acute distress at this time. Will continue to monitor Pt.
[2019-01-01] MEDS: LACTULOSE 20 GM/30 ML UDC PO SCH ×3 (05:47→21:42)
[2019-01-01] MEDS: LORazepam 2 MG/ML VIAL IVP PRN ×3 (05:47→22:25)
[2019-01-01] MEDS: methylPREDNISolone SOD SUCC/PF 62.5 MG/ML VIAL IVP SCH ×3 (05:47→21:42)
[2019-01-01] MEDS: METOPROLOL TARTRATE 50 MG TABLET PO SCH ×3 (05:48→21:42)
--- NOTE | 2019-01-01 06:00 | NUR ---
Pt agitated and restless refused to draw blood from launch leader. PRN Medication for agitation given and will continue to monitor Pt.
[2019-01-01] MEDS: QUEtiapine FUMARATE 100 MG TABLET PO SCH ×4 (06:13→20:44)
--- NOTE | 2019-01-01 06:30 | NUR ---
Pt in bed, no acute distress at this time. IV lines and skin checked. Will endorse Pt to oncoming RN.
[2019-01-01 07:09] LABS: BASOPHILS % (AUTO) 0.1 % (0.0-2.0); HEMATOCRIT 42.4 % (36-54); HEMOGLOBIN 13.3 g/dL (14.0-18.0); LYMPHOCYTES # (AUTO) 0.3 K/uL (1.0-5.5); LYMPHOCYTES % (AUTO) 3.7 % (20.5-51.5); MEAN CORPUSCULAR HEMOGLOBIN 26 pg (27-31); MEAN CORPUSCULAR HGB CONC 32 % (32-36); MEAN CORPUSCULAR VOLUME 82 fL (79.0-98.0); MONOCYTES # (AUTO) 0.3 K/uL (0.0-1.0); MONOCYTES % (AUTO) 3.8 % (1.7-9.3); NEUTROPHILS # (AUTO) 7.3 K/uL (1.8-7.7); NEUTROPHILS % (AUTO) 92.4 % (40.0-70.0); PLATELET COUNT (AUTO) 120 K/uL (130-430); RED BLOOD CELL COUNT(AUTO) 5.19 MIL/uL (4.2-6.2); RED CELL DISTRIBUTION WIDTH 26.7 % (9.0-15.0); WHITE BLOOD COUNT (AUTO) 7.9 K/uL (4.8-10.8)
--- NOTE | 2019-01-01 07:15 | NUR ---
Opening notes, Received pt in bed, pt is sleeping, arousable, opens eyes to voice and touch but goes back to sleep. pt on o2 5 li per face mask. receiving iv fluids via peripheral iv. arms and legs are edematous. safety precaution in place. sitter at bedside. restraints are on.
[2019-01-01 07:16] LABS: ALBUMIN 2.7 g/dL (3.4-4.8); CALCIUM 9.5 mg/dL (8.4-11.0); CREATININE 1.11 mg/dL (0.55-1.30); POTASSIUM 4.6 mmol/L (3.5-5.1); TOTAL BILIRUBIN 4.6 mg/dL (0.0-1.0)
--- NOTE | 2019-01-01 07:45 | NUR ---
Sarah Medina and Amrita here and seen patient. Both Mds aware that pt has not been eating well and no bm since 12-29-18 and pt unable to take medication on time.
--- NOTE | 2019-01-01 08:41 | NUR ---
Awaken patient to offer breakfast. pt woke up for just a minute, pt will not open his mouth. will check again later.
[2019-01-01] MEDS: RIFAXIMIN 550 MG TABLET PO SCH ×2 (09:00→20:44)
--- NOTE | 2019-01-01 09:00 | NUR ---
PT note Holding therapy for today; patient agitated, nursing aware.
[2019-01-01] MEDS: MUPIROCIN 2% TOPICAL OINTMENT 22 GM TP SCH ×2 (09:04→20:45)
[2019-01-01] MEDS: DIGOXIN 0.5 MG/2 ML AMP IVP SCH (09:07)
[2019-01-01] MEDS: 0.45% NACL 1,000 ML IV SCH (09:14)
--- NOTE | 2019-01-01 10:00 | NUR ---
Awaken pt to give am po med and offer breakfast, pt very drowsy. open eyes only for very short time. Addendum: 01/01/19 at [facility] by Pankaj Thao RN unable to give po med and give breakfast. pt is high risk for pocketing food and medicine and aspiration.
--- NOTE | 2019-01-01 10:27 | NUR ---
Psychiatric Placement Attempts Feroz with the [facility] faxed an update. Patient is not accepted at multiple facilities due to the sleep apnea. [facility] can accommodate sleep apnea, but have no beds. Addis Cowart reviewing again. Will place complete update in chart.
--- NOTE | 2019-01-01 11:05 | NUR ---
Awaken pt to give breakfast, pt very drowsy. open eyes only for very short time.
--- NOTE | 2019-01-01 12:05 | NUR ---
PT SUDDENLY AWAKEN BY HIMSELF, PT WAS DAZE INITIALLY BUT THEN CHANGED SUDDENLY WITH EYES STARING FIERCELY AND GROWLING. ENCOURAGED PATIENT TO LAY DOWN IN BED. AFTER ABOUT 5 MINUTES, PT LAID DOWN IN BED AND WAS GIVEN HALDOL AND BENADRYL ORDERED BY DR KEARNS. RESTRAINTS WAS PLACE BACK ALSO. SECURITY AT THAT TIME WAS ALREADY AT BEDSIDE.
[2019-01-01] MEDS: DIPHENHYDRAMINE INJ 50 MG/ML VIAL IVP PRN ×2 (12:21→20:45)
[2019-01-01] MEDS: HALOPERIDOL LACTATE 5 MG/ML VIAL IM PRN ×2 (12:21→20:45)
--- NOTE | 2019-01-01 12:57 | NUR ---
IV RE-INSERTION: Patient is calm , no IV site. Restarted on [id number] upperarm . Successful after 1 attempt g.22. Will observe for any signs of infiltration.
--- NOTE | 2019-01-01 13:00 | NUR ---
PT OFFERED AND ATE LUNCH WITH ASSIST. PT ATE 100% OF LUNCH AND TOOK 2X BOTTLE OF ENSURE.
--- NOTE | 2019-01-01 13:24 | NUR ---
PT GIVEN ATIVAN FOR AGITATION.
--- NOTE | 2019-01-01 13:45 | NUR ---
PT NOW SLEEPING COMFORTABLY.
--- NOTE | 2019-01-01 14:11 | NUR ---
Mendoza Ray the psychiatrist to update the hold its today at 1:20 pm ,spoke to Tavon
--- NOTE | 2019-01-01 14:13 | NUR ---
Warehouse Delivery Driver Note/Code Status/Placement [employer] spoke with Dr Pelaez about patient's code status. Dr Pelaez recommended [employer] phone patient's and discuss code status. Phoned patient's , Shannen [phone]. She stated she would discuss patient's code status with his son, sister, and father. She would like to discuss further with Dr Pelaez. Explained the call may be today or tomorrow. Phoned Claritza PINEDA and asked her to discuss above with Dr Pelaez. Shannen also requested a transfer to [facility] [place] where they have an attached psychiatric unit-[facility]. She said this was mentioned to her by the psychiatrist. Notified Roxanna KEN Phoned Feroz with [facility], . He called [facility] and [facility]. Both can take a patient on bipap but neither have a bed at this time. Phoned Kahlil PINEDA, patient's DO, and informed him of above. Also requested nursing speak with Dr Ray, psychiatrist, to determine if he can assist with placement at [facility].
--- NOTE | 2019-01-01 15:30 | NUR ---
PT RESTLESS AT THIS TIME, OFFERED URINAL, PT UNABLE TO PEE AT THIS TIME.
--- NOTE | 2019-01-01 16:04 | NUR ---
PT IN BED, EYES CLOSED. RESTLESS.
--- NOTE | 2019-01-01 18:12 | NUR ---
PT AWAKE FOR REPOSITIONING, AND OFFERED DINNER. PT REFUSED TO EAT . AND WENT BACK TO SLEEP. UNABLE TO GIVE PM MED DUE TO DROWSINESS.
--- NOTE | 2019-01-01 18:15 | NUR ---
PT'S DIRECT OBSERVATION TURNED OVER TO CARRI Toney PT IN STABLE CONDITION. PT SLEEPING AT THIS TIME.
--- NOTE | 2019-01-01 18:54 | NUR ---
DR DESAIJANEY HERE AND SEEN PT. MADE AWARE OF Faby DEL TORO'S REQUEST RE TRANSFER [facility].
--- NOTE | 2019-01-01 19:05 | NUR ---
OPENING NOTE RECEIVED ENDORSEMENT REPORT FROM DAY NURSE ZAK AT BEDSIDE. PT RESTING IN BED, IN NO ACUTE DISTRESS. NO S/S OF PAIN OR DISCOMFORT. BREATHING IS UNLABORED TO ROOM AIR. IV CLEAN, DRY AND INTACT. EDUCATED PT ON HOW TO USE CALL LIGHT AND ROOM PHONE. PT UNABLE TO VERBALIZE UNDERSTANDING. SITTER AT BEDSIDE. SAFETY PRECAUTIONS ARE IN PLACE: BED IS LOCKED IN LOWEST POSITION, CALL LIGHT IS WITH PT, SIDE RAILS UP X3, BEDSIDE TABLE WITHIN REACH, BED ALARM ON. WILL CONTINUE POC AND MONITOR PT.
--- NOTE | 2019-01-01 20:45 | NUR ---
RN ROUNDS PT RESTING IN BED, IN NO ACUTE DISTRESS. NO S/S OF PAIN OR DISCOMFORT. BREATHING IS UNLABORED. VITAL SIGNS WNL. SCHEDULED MEDICATIONS ADMINISTERED ORDERED. PT TOLERATED WELL. PT'S PRN MEDICATIONS HALDOL AND BENADRYL ADMINISTERED ORDERED FOR AGITATION. PT TOLERATED WELL. WILL CONTINUE TO MONITOR PT. SITTER AT BEDSIDE. NO OTHER NEEDS AT THIS TIME. SAFETY PRECAUTIONS ARE IN PLACE. WILL CONTINUE POC AND MONITOR PT.
[2019-01-01] MEDS ORDERED: QUEtiapine FUMARATE 100 MG TABLET PO SCH (21:00)
--- NOTE | 2019-01-01 22:15 | NUR ---
RN ROUNDS PT RESTING IN BED, IN NO ACUTE DISTRESS. NO S/S OF PAIN OR DISCOMFORT. BREATHING IS UNLABORED. NO NEEDS AT THIS TIME. SITTER AT BEDSIDE. SAFETY PRECAUTIONS ARE IN PLACE. WILL CONTINUE POC AND MONITOR PT.
--- NOTE | 2019-01-02 00:25 | NUR ---
RN ROUNDS PT RESTING IN BED, IN NO ACUTE DISTRESS. NO S/S OF PAIN OR DISCOMFORT. BREATHING IS UNLABORED. NO NEEDS AT THIS TIME. SAFETY PRECAUTIONS ARE IN PLACE. SITTER AT BEDSIDE. WILL CONTINUE POC AND MONITOR PT.
[2019-01-02 00:26] VITALS: BP_SYST 138
[2019-01-02] MEDS: IPRATROPIUM/ALBUTEROL SULFATE 3 ML AMPUL.NEB (DUONEB) INH SCH ×4 (01:00→19:46)
[2019-01-02] MEDS: HALOPERIDOL LACTATE 5 MG/ML VIAL IM PRN ×3 (01:42→12:27)
[2019-01-02] MEDS: DILTIAZEM HCL 25 MG/5 ML VIAL IVP PRN (01:42)
[2019-01-02] MEDS: DIPHENHYDRAMINE INJ 50 MG/ML VIAL IVP PRN ×3 (01:43→12:26)
--- NOTE | 2019-01-02 01:45 | NUR ---
RN ROUNDS PT RESTING IN BED, IN NO ACUTE DISTRESS. NO S/S OF PAIN. BREATHING IS UNLABORED. PT BECOMING AGITATED. PRN MEDICATIONS HALDOL AND BENADRYL ADMINISTERED ORDERED. PT TOLERATED WELL. NO OTHER NEEDS AT THIS TIME. SITTER AT BEDSIDE. SAFETY PRECAUTIONS ARE IN PLACE. WILL CONTINUE POC AND MONITOR PT.
[2019-01-02] MEDS: LORazepam 2 MG/ML VIAL IVP PRN ×2 (04:00→14:10)
--- NOTE | 2019-01-02 04:00 | NUR ---
MED PASS PT BECOMING INCREASINGLY RESTLESS. PRN ATIVAN ADMINISTERED ORDERED FOR AGITATION. PT TOLERATED WELL. WILL CONTINUE TO MONITOR PT. SITTER AT BEDSIDE. SAFETY PRECAUTIONS IN PLACE.
--- NOTE | 2019-01-02 04:15 | NUR ---
MED PASS PT BECOMING RESTLESS AND AGITATED PRN BENDRYL AND HALDOL ADMINISTERED ORDERED. PT TOLERATED WELL. SITTER AT BEDSIDE. NO OTHER NEEDS AT THIS TIME. SAFETY PRECAUTIONS ARE IN PLACE. WILL CONTINUE POC AND MONITOR PT.
[2019-01-02] MEDS: methylPREDNISolone SOD SUCC/PF 62.5 MG/ML VIAL IVP SCH ×3 (05:14→21:03)
[2019-01-02] MEDS: LACTULOSE 20 GM/30 ML UDC PO SCH ×3 (05:14→21:02)
[2019-01-02] MEDS: METOPROLOL TARTRATE 50 MG TABLET PO SCH ×3 (05:15→21:04)
[2019-01-02 06:25] VITALS: BP_SYST 120
--- NOTE | 2019-01-02 06:34 | NUR ---
CLOSING NOTE PT RESTING IN BED, AOX1, IN NO ACUTE DISTRESS. NO S/S PAIN OR DISCOMFORT. BREATHING IS UNLABORED. ALL SCHEDULED MEDICATIONS ADMINISTERED ORDERED. ALL NEEDS MET THROUGHOUT SHIFT. SITTER AT BEDSIDE. SAFETY PRECAUTIONS ARE IN PLACE. WILL CONTINUE TO MONITOR UNTIL PT CARE IS ENDORSED TO DAY SHIFT NURSE.
[2019-01-02 07:15] VITALS: BP_SYST 135
--- NOTE | 2019-01-02 07:15 | NUR ---
OPENING NOTES, RECEIVED PT IN BED, PT IS SLEEPING BUT MOAN ON AND OFF, PT IS LIGHT RESTLESS. VITALS ARE WNL, HR IS 106, O2 SAT IS 98 ON 6L OXYGEN VIA FACE MASK. NO FEVER. RESP IS HIGH AT 28, SAFETY PRECAUTION IN PLACE. SITTER AT BEDSIDE, BILAT WRIST RESTRAINTS ON. CONTINUOUS MONITORING ON.
--- NOTE | 2019-01-02 07:30 | NUR ---
PT VERY RESTLESS THIS TIME. ON O2 VIA FACE MASK AT 6 LI, O2 SAT WAS 98%.
--- NOTE | 2019-01-02 08:00 | NUR ---
PT NOW SLEEPING AFTER REPOSITIONING, BREATHING IS SLOWER AT [address] HERNANDEZ HERE AND SEEN PT. NEW ORDER GIVEN.
[2019-01-02] MEDS ORDERED: FUROSEMIDE 20 MG/2 ML VIAL IVP ONE (08:15)
[2019-01-02] MEDS: DIGOXIN 0.5 MG/2 ML AMP IVP SCH (08:16)
[2019-01-02] MEDS: MUPIROCIN 2% TOPICAL OINTMENT 22 GM TP SCH ×2 (08:17→20:57)
--- NOTE | 2019-01-02 08:20 | NUR ---
DR WALLACE WAS HERE AND SEEN PT. MD ORDERED TO PLACE PT ON O2 3L PER NC INSTEAD OF FACE MASK 6LI. ORDER CARRIED OUT.
--- NOTE | 2019-01-02 08:30 | NUR ---
AWAKENED PATIENT TO OFFER PO MEDS AND BREAKFAST, PT OPENED EYES FOR FEW SECOND, PLACED STRAW FOR ENSURE ON HIS LIPS, PT DID NOT OPEN HIS LIPS TO DRINK AND WENT BACK TO SLEEP. WILL OFFER AGAIN LATER.
--- NOTE | 2019-01-02 09:58 | NUR ---
PT NOTE Physical therapy on hold for today due to patient being sedative with poor safety awareness, nursing aware; will try again tomorrow.
[2019-01-02] MEDS: QUEtiapine FUMARATE 100 MG TABLET PO SCH ×3 (10:03→20:54)
--- NOTE | 2019-01-02 10:07 | NUR ---
DR KEARNS WAS HERE AND SEEN PT. PT TOOK HIS MEDICATIONS AND DRANK 230 ML OF ENSURE. Addendum: 01/02/19 at 1010 by Pankaj Thao RN DR KEARNS REMINED TO CALL PT'S TO DISCUSS CODE STATUS
--- NOTE | 2019-01-02 10:31 | NUR ---
DR KEARNS SPEAKING TO PATIENT'S OVER THE PHONE.
[2019-01-02 10:43] LABS: BASOPHILS % (AUTO) 0.2 % (0.0-2.0); HEMOGLOBIN 13.2 g/dL (14.0-18.0); LYMPHOCYTES # (AUTO) 0.1 K/uL (1.0-5.5); LYMPHOCYTES % (AUTO) 1.8 % (20.5-51.5); MEAN CORPUSCULAR HEMOGLOBIN 26 pg (27-31); MEAN CORPUSCULAR HGB CONC 32 % (32-36); MEAN CORPUSCULAR VOLUME 81 fL (79.0-98.0); MONOCYTES # (AUTO) 0.4 K/uL (0.0-1.0); MONOCYTES % (AUTO) 5.3 % (1.7-9.3); NEUTROPHILS # (AUTO) 7.7 K/uL (1.8-7.7); NEUTROPHILS % (AUTO) 92.7 % (40.0-70.0); PLATELET COUNT (AUTO) 124 K/uL (130-430); RED BLOOD CELL COUNT(AUTO) 5.04 MIL/uL (4.2-6.2); RED CELL DISTRIBUTION WIDTH 26.4 % (9.0-15.0); WHITE BLOOD COUNT (AUTO) 8.3 K/uL (4.8-10.8)
[2019-01-02 10:59] LABS: ALBUMIN 2.9 g/dL (3.4-4.8); CALCIUM 9.5 mg/dL (8.4-11.0); CREATININE 1.04 mg/dL (0.55-1.30); POTASSIUM 4.3 mmol/L (3.5-5.1); TOTAL BILIRUBIN 4.3 mg/dL (0.0-1.0)
--- NOTE | 2019-01-02 11:04 | NUR ---
PT STARTED MOVING AND BECOMING RESTLESS, PT WAS WET WITH URINE, CHANGE CHUCKS.
--- NOTE | 2019-01-02 11:12 | NUR ---
PT HAD ANOTHER URINARY INCONTINENCE. PT IS SLEEPING AT THIS TIME.
[2019-01-02 12:00] VITALS: BP_SYST 140
--- NOTE | 2019-01-02 12:59 | NUR ---
GIVEN PT MARLENE AND SUSAN PREMED FOR CT OF THE HEAD AT 1227. INFORMED RECOVERY ROOM RN MAY AT 1230, HE SAID HE IS GOING TO CALL AFTER 10 MINUTES TO CHECK. CALLED RECOVERY ROOM RN SINCE 1245 UNTIL NOW TO MAKE AWARE THAT PT IS NOW CALM AND SLEEPING, NO ANSWER .
--- NOTE | 2019-01-02 13:20 | NUR ---
CALLED MAY OF CT AGAIN , NO ANSWER.
--- NOTE | 2019-01-02 14:34 | NUR ---
Nutrition F/U RD reviewed pt's current EMR including diet Hx, physician notes, nursing notes, pertinent labs/meds/procedures, care trends, and care activity. Current Diet Order: 2 gm Na, cardiac, puree x10 days Subjective information: Pt seen sleeping in bed w/ RN at bedside as a sitter. RN reported that all pt has had to eat/drink is Ensure Enlive ONS at breakfast. Lunch tray seen untouched at bedside. Bedscale wt taken: 317 lb. Admission wt (12/14/18): 319 lb. Note 2 lb wt difference. pt has had ongoing poor PO intakes for greater than 1 week. Current PO intake: 25% average x17 meals ESTIMATED NUTRITIONAL REQUIREMENTS CALORIES/DAY: 1824-6690 kcal/day (25-30 kcal/kg IBW for Obesity) PROTEIN/DAY: 71-134 gm/day (.8-1.5 gm/kg IBW for Renal Dz and COPD) FLUID/DAY: per MD (Renal Dz) D: 1. Morbid Obesity r/t inability to access healthier food choices AEB possible consumption of high calorie food and beverage from fast food restaurants and convenient stores, homelessness and BMI 40 kg/m2. *ongoing 2. Inadequate nutrient intake r/t medication intake AEB PO intake not meeting 75% of estimated needs and nursing staff report. *ongoing I: 1. Recommend continuing 2 gm Na, cardiac, puree diet (ONS Ensure Enlive comes standard w/ pureed diet (1050 kcal/day, 60 gm protein/day) 2. Consider an alternate route of nutrition support if PO intake does not improve within 1 week M: Monitor appetite and PO intake w/ goal of pt meeting at least 75% of estimated nutritional needs, labs trending WNL, normal GI function, skin integrity/wt maintenance. E: RD to F/U within 3-5 days
--- NOTE | 2019-01-02 14:41 | NUR ---
Dietitian Recommendations 1. Recommend continuing 2 gm Na, cardiac, puree diet (ONS Ensure Enlive comes standard w/ pureed diet (1050 kcal/day, 60 gm protein/day) 2. Consider an alternate route of nutrition support if PO intake does not improve within 1 week LP, RD Please refer to Nutrition F/U for details.
--- NOTE | 2019-01-02 15:48 | NUR ---
DR KEARNS HERE AND INFORMED MD THAT PT IS STILL MOVING EVEN WHEN GIVEN MEDICATIONS FOR SEDATION AND SALES PROMOTION OFFICER AFRAID THAT PT IS UNSAFE TO GO TO CT SINCE THE GURNEY FOR CTR HAS NO RAILINGS.
--- NOTE | 2019-01-02 16:03 | NUR ---
DC PLANNING: CM FAXED TRANSFER REQUEST TO [facility] @ F , P FOR TRANSFER TO [facility]UTE [facility]. CM/SS TO FOLLOW UP NEEDED.
[2019-01-02 16:11] VITALS: BP_SYST 138
--- NOTE | 2019-01-02 17:56 | NUR ---
PT IN BED, SLEEPING COMFORTABLY, NO SOB. NO RESP DISTRESS.
--- NOTE | 2019-01-02 18:10 | NUR ---
CLOSING NOTES PT HAS WAS ON AND OFF RESTLESS. CONTINUED TO BED ON SITTER AND RESTRAIN. GIVEN SEDATION FOR CT OF THE HEAD BUT CT WAS NOT DONE FOR PATIENT SAFETY. MD WAS AWARE. WILL ENDORSE TO NIGHT NURSE.
--- NOTE | 2019-01-02 19:20 | NUR ---
CHANGE OF SHIFT; pt. awake, appears groggy and drowsy, eating his dinner, being fed by SOLDERER ASSEMBLER, on direct observation. gets restless and disoriented, on bilateral soft wrist restraints, checked circulation. on monitoring tech and shows atrial fib, rate >100-111. closely monitored, no acute distress. on fall precautions, bed alarm on.
--- NOTE | 2019-01-02 20:30 | NUR ---
NOTES: pt. been dozing on and off. VS checked. noted swelling on both arms and legs/ankle, some bruising on upper arms. IV lock on rt. upper arm. O2 @ 3l/nc. on semi pelaez's position. denies chest pain nor shortness of breath. restraints in place, trying to bring his legs out of the bed. side rails up and in lowest position. continuous direct observation.
--- NOTE | 2019-01-02 21:10 | NUR ---
NOTES: due medications taken well with apple sauce. occasionally yells, pt. reassured. repositioned.
[2019-01-02 21:17] VITALS: BP_SYST 120
--- NOTE | 2019-01-02 22:30 | NUR ---
NOTES: pt. sleeping at short intervals, tries to get up in bed, restraints in place. occasional bouts of non productive cough, gets wheezy at times kia. when he keeps moving, HOB kept elevated. condition guarded.
--- NOTE | 2019-01-02 23:30 | NUR ---
NOTES: pt. remains awake, keep fidgeting, had another BM and got into his hands, maliha care and washing hands done by CARRI. gets fiesty. Addendum: 01/03/19 at 0251 by Darline Sumner RN wrong pt.
--- NOTE | 2019-01-03 00:30 | NUR ---
NOTES: pt. gets incontinent of urine, maliha and partial am care done, kept dry, no bm. noted multiple dry scabs on both legs, both arms/lower extremities pretty tight and swollen. cardiac pattern unchanged.
[2019-01-03 00:58] VITALS: BP_SYST 123
[2019-01-03] MEDS: IPRATROPIUM/ALBUTEROL SULFATE 3 ML AMPUL.NEB (DUONEB) INH SCH ×5 (01:00→19:42)
[2019-01-03] MEDS: LORazepam 2 MG/ML VIAL IVP PRN ×4 (02:13→20:18)
--- NOTE | 2019-01-03 02:15 | NUR ---
NOTES: pt. starts yelling, restless and agitated, medicated with Ativan IV given as ordered. called RT for breathing treatment. continuous direct observation. bilateral wrist restraints assessment done.
--- NOTE | 2019-01-03 03:30 | NUR ---
NOTES: pt. asleep, pretty calm. continue to observe. on direct observation. kept bilateral wrist restraints.
--- NOTE | 2019-01-03 05:00 | NUR ---
NOTES: condition unchanged. continue to observe. been sleeping. restraints maintained. moves around whenever he wakes up. Addendum: 01/03/19 at 0523 by Darline Sumner RN no suicidal ideation noted.
[2019-01-03 05:54] LABS: BASOPHILS % (AUTO) 0.7 % (0.0-2.0); HEMATOCRIT 40.9 % (36-54); HEMOGLOBIN 12.9 g/dL (14.0-18.0); LYMPHOCYTES # (AUTO) 0.2 K/uL (1.0-5.5); LYMPHOCYTES % (AUTO) 3.3 % (20.5-51.5); MEAN CORPUSCULAR HEMOGLOBIN 25 pg (27-31); MEAN CORPUSCULAR HGB CONC 32 % (32-36); MEAN CORPUSCULAR VOLUME 81 fL (79.0-98.0); MONOCYTES # (AUTO) 0.4 K/uL (0.0-1.0); MONOCYTES % (AUTO) 5.8 % (1.7-9.3); NEUTROPHILS # (AUTO) 6.6 K/uL (1.8-7.7); NEUTROPHILS % (AUTO) 90.2 % (40.0-70.0); PLATELET COUNT (AUTO) 118 K/uL (130-430); RED BLOOD CELL COUNT(AUTO) 5.07 MIL/uL (4.2-6.2); RED CELL DISTRIBUTION WIDTH 26.9 % (9.0-15.0); WHITE BLOOD COUNT (AUTO) 7.3 K/uL (4.8-10.8)
--- NOTE | 2019-01-03 06:00 | NUR ---
NOTES: pt. sleeping on semi fowlers position. bilateral soft wrist restraints in place. IV lock intact. condition observed.
[2019-01-03 06:09] LABS: ALBUMIN 2.7 g/dL (3.4-4.8); CALCIUM 9.5 mg/dL (8.4-11.0); CREATININE 1.09 mg/dL (0.55-1.30); DIGOXIN 0.6 ng/mL (0.80-2.00); POTASSIUM 4.6 mmol/L (3.5-5.1)
[2019-01-03] MEDS: methylPREDNISolone SOD SUCC/PF 62.5 MG/ML VIAL IVP SCH ×3 (06:16→22:34)
[2019-01-03] MEDS: LACTULOSE 20 GM/30 ML UDC PO SCH ×3 (06:16→22:34)
[2019-01-03] MEDS: METOPROLOL TARTRATE 50 MG TABLET PO SCH ×3 (06:19→22:35)
--- NOTE | 2019-01-03 06:47 | NUR ---
CLOSING NOTES; PT. SLEEPING ON AND OFF AND GETS RESTLESS AT INTERVALS, DUE MEDICATION TAKEN WELL. PT. WEIGHED 315 LBS. SAFETY PRECAUTIONS . CONTINUE ON DIRECT OBSERVATION WITH BILATERAL SOFT WRIST RESTRAINTS. FOR FURTHER CARE AND ASSISTANCE.
--- NOTE | 2019-01-03 07:17 | NUR ---
RN OPENING NOTE RECEIVED SBAR REPORT AT BEDSIDE FROM ENDORSING NURSE. PT RESTRAINED VIA BILATERAL SOFT WRIST RESTRAINTS, NO SIGN OF SKIN BREAKDOWN. PT APPEARS TO BE SLEEPING BUT IS EASILY AROUSED. SEE VS FLOW SHEET.
--- NOTE | 2019-01-03 07:30 | NUR ---
PT AGGRESSIVE/KICKING DRILLER AND REAMER NURSE NOTIFIED. HALDOL/BENADRYL ADMINISTERED ORDERED PRN.
[2019-01-03] MEDS: DIPHENHYDRAMINE INJ 50 MG/ML VIAL IVP PRN ×2 (07:38→14:39)
[2019-01-03] MEDS: HALOPERIDOL LACTATE 5 MG/ML VIAL IM PRN ×2 (07:39→14:39)
[2019-01-03 08:00] VITALS: BP_SYST 128
--- NOTE | 2019-01-03 08:00 | NUR ---
BED BATH/ORAL CARE PROVIDED
--- NOTE | 2019-01-03 08:10 | NUR ---
BREAKFAST 20% PT TOLERATED WELL, NO SIGN OF SWALLOW DIFFICULTY.
--- NOTE | 2019-01-03 08:20 | NUR ---
DR. WALLACE AT BEDSIDE NO NEW ORDERS
--- NOTE | 2019-01-03 09:00 | NUR ---
PT'S ROOM WANDED BY SECURITY
--- NOTE | 2019-01-03 09:01 | NUR ---
PT RELOCATED TO 124-A PT MOVED ON HEADWAITER/HEADWAITRESS ON BILATERAL SOFT-WRIST RESTRAINTS, PER REQUEST OF CNO
--- NOTE | 2019-01-03 09:01 | NUR ---
relocated pt via bed to room 124-1 Pt transported on electronic device monitor with O2 therapy, accompanied by two nurses.
--- NOTE | 2019-01-03 09:05 | NUR ---
Attempt at Psychiatric Placement [facility] received a call from patient's father, Kris [phone], requesting transfer to [facility]. [facility] notified Roxanna HARDIN. Phoned Pablo with Department of Mental Health inpatient psych, . He will see if he can provide suggestions and call back. Phoned LANDON Yousif [facility] [phone], and spoke with Kun ref # [id number]. He stated CM to call Chrissy at [phone], and discuss the case. Provided the information to Roxanna HARDIN who will follow up. Addendum: 01/03/19 at 1642 by Aniya Narayanan [facility] Called [facility] -unable to place patient. Called Kris, patient's father. He is frustrated with the lack of placement. Called [facility] psych. No beds and they will not take patient on restraints or Bipap.
[2019-01-03] MEDS: MUPIROCIN 2% TOPICAL OINTMENT 22 GM TP SCH ×2 (09:27→20:29)
[2019-01-03] MEDS: DIGOXIN 0.5 MG/2 ML AMP IVP SCH (09:29)
--- NOTE | 2019-01-03 09:47 | NUR ---
CM ATTEMPTED TO CONTACT ANA AT [facility] @ [phone] TO DISCUSS TRANSFER TO INPATIENT [facility]AT[facility]. HOWEVER, WAS UNAVAILABLE. CM LEFT A VOICE MESSAGE AND CALL BACK NUMBER. CM TO FOLLOW UP NEEDED.
[2019-01-03] MEDS: QUEtiapine FUMARATE 100 MG TABLET PO SCH ×3 (11:15→20:28)
--- NOTE | 2019-01-03 11:15 | NUR ---
DR. KEARNS AT BEDSIDE
--- NOTE | 2019-01-03 11:50 | NUR ---
DR. HERNANDEZ AT BEDSIDE
[2019-01-03 12:00] VITALS: BP_SYST 132
--- NOTE | 2019-01-03 14:45 | NUR ---
PT AGGRESSIVE/HALDOL+BENADRYL CHARGE NURSE NOTIFIED. HALDOL/BENADRYL ADMINISTERED ORDERED PRN.
[2019-01-03 16:00] VITALS: BP_SYST 130
--- NOTE | 2019-01-03 16:44 | NUR ---
CONTACTED [facility] @ OPT 2. SPOKE WITH ALYSSA, STATED TO CONTACT THE [facility] DIRECTLY. [facility] @ , [facility] @ OR AND JIM @ . CM/KANDY TO FOLLOW UP NEEDED.
--- NOTE | 2019-01-03 18:04 | NUR ---
BED BATH/ORAL CARE PROVIDED
--- NOTE | 2019-01-03 18:38 | NUR ---
RN CLOSING NOTE PT RESTING IN BED AND APPEARS TO BE SLEEPING WITH NO S/S OF DISTRESS. PT IS CLEAN, DRY, VS STABLE. PT CONTINUES TO REMOVE GOWN, BUT IT IS PLACED FOR PRIVACY.
--- NOTE | 2019-01-03 19:17 | NUR ---
Initial note: Received report from dayshift RN. Patient is resting calmly in bed with eyes closed. Does not show any acute distress. Even and unlabored breathing on 2L NC. IV site to right upper arm is saline locked, patent and benign. Bilateral soft wrist restraints in place as ordered for patient's safety. Patient is on a current 5150 hold for GD. Direct observation in place, this RN will remain at bedside to monitor patient. Bed is locked in lowest position, side rails raised, bed alarm on. Will continue with plan of care.
--- NOTE | 2019-01-03 19:49 | NUR ---
RT at bedside: Patient being administered breathing treatment by RT at this time. Patient appears restless during breathing treatment, moaning and pushing against the side rails with his feet. Instructed patient to calm down, patient complied. Will continue to monitor.
[2019-01-03 20:00] VITALS: BP_SYST 126
--- NOTE | 2019-01-03 20:20 | NUR ---
Agitation: Patient is yelling, kicking the side rails, and pulling on his restraints. Ativan 1 MG administered intravenously via MARISELA IV site as ordered. No adverse effects noted. Safety and fall precautions in place. Will continue to monitor.
--- NOTE | 2019-01-03 20:31 | NUR ---
Med pass: Patient is still restless at this time. Administered scheduled Seroquel and Bactroban as ordered. Seroquel was crushed and administered with chocolate pudding, patient was compliant and tolerated well. Safety, fall precautions in place. Will continue to monitor.
--- NOTE | 2019-01-03 22:21 | NUR ---
Bed bath: Assisted CARRI Ruiz in rendering total bed bath and complete linen change. Patient was agitated during the process, but not combative. Safety and fall precautions in place. Will continue to monitor.
--- NOTE | 2019-01-03 22:38 | NUR ---
Med pass: Administered scheduled Lopressor, Solu-Medrol, and Enulose at this time. Lopressor was crushed and administered with chocolate pudding, patient tolerated well. No adverse reactions noted following medication administration. Safety and fall precautions in place. Will continue monitoring.
[2019-01-04] VITALS: BP_SYST 125
[2019-01-04] MEDS: HALOPERIDOL LACTATE 5 MG/ML VIAL IM PRN ×6 (00:55→23:47)
[2019-01-04] MEDS: DIPHENHYDRAMINE INJ 50 MG/ML VIAL IVP PRN ×5 (00:56→23:47)
--- NOTE | 2019-01-04 00:57 | NUR ---
Agitation: Patient is awake and agitated; yelling, placing legs over side rails, and not complying with RN's instructions to keep legs in bed. Administered Benadryl IVP and Haldol IM for agitation as ordered by . MARISELA IV site remains patent and benign. No adverse reactions noted following medication administration. Safety and fall precautions in place. Will continue to monitor.
--- NOTE | 2019-01-04 02:51 | NUR ---
Sleeping: Patient is asleep, occasionally restless. No acute distress. Tolerating 2L NC, even and unlabored breathing. IV site remains patent and intact. Safety and fall precautions in place. Will continue to monitor.
--- NOTE | 2019-01-04 03:44 | NUR ---
Incontinence care: Patient is urine incontinent. Assisted CARRI Ruiz in providing incontinence care. Patient was made comfortable, then was fed 2 cups of chocolate pudding. Still restless and yelling at this time. Will continue to monitor.
[2019-01-04] MEDS: methylPREDNISolone SOD SUCC/PF 62.5 MG/ML VIAL IVP SCH ×3 (05:05→21:22)
--- NOTE | 2019-01-04 05:08 | NUR ---
Agitation: Patient is yelling, pulling on his restraints, and kicking the side rails of his bed. Benadryl IVP and Haldol IM administered for agitation per MD order. No adverse effects noted after administration. Safety and fall precautions in place. Will continue monitoring patient.
[2019-01-04] MEDS: METOPROLOL TARTRATE 50 MG TABLET PO SCH ×3 (05:59→21:24)
[2019-01-04] MEDS: LACTULOSE 20 GM/30 ML UDC PO SCH ×3 (05:59→21:22)
--- NOTE | 2019-01-04 06:10 | NUR ---
Closing note: Patient is resting in bed with eyes closed, restless at times. Tolerating 2L NC, respirations are even and unlabored. IV site to right upper arm remains patent and intact. Scheduled medications administered, patient tolerated well. No adverse effects noted. All needs met. Safety and fall precautions observed. Sitter remained at bedside throughout shift. Will endorse care to dayshift RN.
--- NOTE | 2019-01-04 07:10 | NUR ---
OPENING NOTE: Received patient awake, confused, restless, agitated and with soft wrist restraints in place. Patient remains on direct observation status. Received SBAR report and plan of care from night clerk RN.
[2019-01-04] MEDS: IPRATROPIUM/ALBUTEROL SULFATE 3 ML AMPUL.NEB (DUONEB) INH SCH ×3 (07:25→20:03)
[2019-01-04 08:00] VITALS: BP_SYST 117
[2019-01-04 08:31] VITALS: BP_SYST 137
[2019-01-04] MEDS ORDERED: DIGOXIN 0.5 MG/2 ML AMP IVP ONE (09:00)
[2019-01-04] MEDS ORDERED: CARVEDILOL 6.25 MG TABLET (COREG) PO ONE (09:00)
--- NOTE | 2019-01-04 09:00 | NUR ---
RN ROUNDS: Patient remains confused, restless and agitated with bilateral soft wrist restraints in place. Currently the patient has finally fallen asleep and has been sleeping for about 45 minutes. Patient ate 100% of his breakfast which he tolerated well. Nasal cannula is in place with O2 running at 2lpm, O2 sat remains >92, breathing is even and unlabored, no signs of distress noted.
[2019-01-04] MEDS: MUPIROCIN 2% TOPICAL OINTMENT 22 GM TP SCH ×2 (09:38→21:22)
--- NOTE | 2019-01-04 10:36 | NUR ---
Spoke with regarding disclosure of patient status to family FRANCHISE CONSULTANT phoned patient's , Shannen [phone]. She would like other family members, specifically his father and sister and sons, to be able to phone the nurses' station and get updates on patient's status. She would like FRANCHISE CONSULTANT to communicate with patient's father during the day as she is at work. Shannen just wants to be sure she is included in any significant decisions that are made regarding patient.
--- NOTE | 2019-01-04 10:43 | NUR ---
Psychiatric Placement Attempts DENNIS received the fax from the Call Center documenting the work on placement done yesterday, which will be placed in the chart. [facility] continues to seem to be the most likely to accept if and when a bed becomes available. Patient is not accepted to most facilities due to his continued need for restraints and BiPAP, among other limiting factors. DENNIS phoned multiple people at [facility] Psych ER, with no result. They are understanding of the situation, but are at capacity. Phoned the Behavioral [facility] Call Center and spoke with Mariposa at length. She will personally call [facility], and will work with her social insurance specialist to determine if patient might be placed at a psychiatric SNF. Addendum: 01/04/19 at 1606 by Aniya Narayanan LCSW Patient continues to be unable to communicate. He remains agitated and on restraints. He appeared to want to communicate with me but no understandable words were said. Phoned Mariposa at the call center. They reached out to the [facility] SNFs and none would accept patient. She will continue to work on placement.
--- NOTE | 2019-01-04 11:00 | NUR ---
RN ROUNDS: Patient remains confused, restless and agitated with bilateral soft wrist restraints in place. Patient continues to struggle against the restraints, continues to mumble incoherently, patient is very strong and was able to break the restraints which just snapped with his continuous pulling on them, patient broke each side at different times, restraints were replaced. Nasal cannula is in place with O2 running at 2lpm, O2 sat remains >92, breathing is even and unlabored, no signs of distress noted.
--- NOTE | 2019-01-04 11:03 | NUR ---
P.T. NOTES UNABLE TO SEE PATIENT FOR P.T., CONTINUES TO BE RESTLESS AND CONFUSED, UNABLE TO ANSWER QUESTIONS APPROPRIATELY, PATIENT ALSO HAS ONE ON ONE SITTER AND W/ SOFT WRIST RESTRAINTS.
[2019-01-04] MEDS: QUEtiapine FUMARATE 100 MG TABLET PO SCH ×3 (11:08→21:23)
[2019-01-04 12:00] VITALS: BP_SYST 130
--- NOTE | 2019-01-04 13:00 | NUR ---
RN ROUNDS: Patient in bed sleeping, bilateral soft wrist restraints in place, removed each side while patient was sleeping to assess skin and to give his wrists a break, skin look clear with no signs of injury from restraints.
--- NOTE | 2019-01-04 15:00 | NUR ---
RN ROUNDS: Patient awake, remains confused, restless and agitated with constant attempts to get out of bed and constant pulling on restraints. Bilateral soft wrist restraints remain in place, orders renewed. Cleaned up patient and provided maliha care, linens changed.
[2019-01-04 15:56] VITALS: BP_SYST 136
--- NOTE | 2019-01-04 17:00 | NUR ---
RN ROUNDS: Patient remains confused, restless and agitated with bilateral soft wrist restraints in place. Patient is on continuous remote telemetry monitoring, showing AFib at this time. Nasal cannula is in place with O2 running at 2lpm, O2 sat remains >92, breathing is even and unlabored, no signs of distress noted.
--- NOTE | 2019-01-04 17:14 | NUR ---
CONSULTATION PAGED/CALLED Reason for Consultation: [] CONFUSION Person Who was Notified: [] DOMONIQUE Consulting Physician: [] DR RUFUS BRUNSON Sleeping Car Conductor Specialty: [] NEUROLOGIST Ordering Physician: [] DR Jess KEARNS SPOKE TO DOMONIQUE THAT CONSULT WILL BE FORWARDED TO DR Jose BRUNSON. (TEL NUMBER OF DR BRUNSON GOES TO THE WRONG RECIPIENT)
--- NOTE | 2019-01-04 17:40 | NUR ---
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
--- NOTE | 2019-01-04 18:54 | NUR ---
CLOSING NOTE: Patient remains confused, restless and agitated with bilateral soft wrist restraints in place. RT upper arm peripheral IV #22 is intact, patent, flushes well, dressing is clean dry and intact. Patient is on continuous remote telemetry monitoring, showing AFib at this time. Nasal cannula is in place with O2 running at 2lpm, O2 sat remains >92, breathing is even and unlabored, no signs of distress noted. SBAR report to be given and plan of care to be endorsed to oncoming hourly shift RN.
--- NOTE | 2019-01-04 19:00 | NUR ---
OPENING NOTE Bedside report received from dayshift nurse. Patient received lying in bed, awake, restless, no s/s of acute distress noted. Breathing is even and unlabored. HOB raised. Nasal canula not attached, dayshift nurse states that patient keeps removing it, will continue to encourage throughout shift. Soft wrist restraints in place, no injuries noted. Bed is locked and at lowest position. RN will be sitter throughout shift. Will continue to monitor.
--- NOTE | 2019-01-04 19:04 | NUR ---
DR TOTH AT BEDSIDE Dr. Toth at bedside assessing the patient. also updated by dayshift nurse on patient's behavior throughout the day.
--- NOTE | 2019-01-04 19:59 | NUR ---
DO NOTE Patient in bed, awake, restless, patient yells intermittently. No signs of discomfort noted. Chest rise and fall even bilaterally. HOB raised. Soft wrist restraints in place. Four side rails up. Bed locked and at lowest position. Sitter present at bedside. Will continue to monitor.
[2019-01-04 20:00] VITALS: BP_SYST 134
[2019-01-04] MEDS: CARVEDILOL 6.25 MG TABLET (COREG) PO SCH (21:23)
--- NOTE | 2019-01-04 21:47 | NUR ---
DO NOTE Patient in bed, sleeping. No s/s of acute distress noted. Breathing even and unlabored. HOB raised. Sitter at bedside. Will continue to monitor.
--- NOTE | 2019-01-04 22:31 | NUR ---
Paged MD for renewal of [phone] Talked to answering service for MD to renew 5150 for the patient. Md called back after 6 mins.
--- NOTE | 2019-01-04 23:27 | NUR ---
DO NOTE Patient asleep at this time. No signs of discomfort noted. Chest rise and fall even bilaterally. HOB raised. Soft wrist restraints in place. Sitter present at bedside. Will continue to monitor.
--- NOTE | 2019-01-04 23:47 | NUR ---
AGITATED Patient awake, yelling, and kicking foot board. PRN medication for agitation will be administered. Sitter present at bedside. Will continue to monitor and reassess.
[2019-01-05] VITALS: BP_SYST 138
--- NOTE | 2019-01-05 00:43 | NUR ---
INCONTINENT CARE Patient cleaned by DEMAND EQUIPMENT REPAIRER and RN at this time. Patient tolerated activity well. Patient followed commands. Patient in bed, resting, no signs of discomfort noted. Chest rise and fall even bilaterally. HOB raised. Soft wrist restraints in place. Sitter present at bedside. Bed locked and at lowest position. Will continue to monitor.
[2019-01-05] MEDS: IPRATROPIUM/ALBUTEROL SULFATE 3 ML AMPUL.NEB (DUONEB) INH SCH ×4 (01:15→18:40)
--- NOTE | 2019-01-05 02:18 | NUR ---
DO NOTES Patient in bed, awake, mumbling, agitated. HOB raised. Breathing even and unlabored. Soft wrist restraints in place. Sitter present at bedside. All needs met. Will continue to monitor.
--- NOTE | 2019-01-05 03:41 | NUR ---
DO NOTE Patient in bed, awake, agitated, yelling. HOB raised. Breathing even and unlabored. Soft wrist restraints in place. Sitter present at bedside. Bed is locked and at lowest position. Will continue to monitor.
[2019-01-05] MEDS: HALOPERIDOL LACTATE 5 MG/ML VIAL IM PRN ×2 (03:57→10:00)
[2019-01-05] MEDS: DIPHENHYDRAMINE INJ 50 MG/ML VIAL IVP PRN ×2 (03:57→10:00)
--- NOTE | 2019-01-05 04:49 | NUR ---
DO NOTES Patient in bed, awake, yelling, agitated. Chest rise and fall even bilaterally. HOB raised. Soft wrist restraints in place. Bed is locked and at lowest position. Sitter present at bedside. Will continue to monitor.
--- NOTE | 2019-01-05 05:10 | NUR ---
SPOKE TO PATIENT'S RE: SEDATION Spoke to patient's , [phone], asked if the anesthesiologist has spoken to her regarding sedation? Patient's , Shannen, said no, no one has spoken to her about sedating the patient. Charge nurse made aware. Addendum: 01/05/19 at 0604 by Pk Ruggiero RN ADDITIONAL Shannen also stated, " I leave for work at 1100, you will not be able to reach me by then. If needed you can call his father, Niko at [phone]".
[2019-01-05 06:00] VITALS: BP_SYST 128
[2019-01-05] MEDS: methylPREDNISolone SOD SUCC/PF 62.5 MG/ML VIAL IVP SCH ×3 (06:09→22:15)
[2019-01-05] MEDS: LACTULOSE 20 GM/30 ML UDC PO SCH ×3 (06:09→22:15)
[2019-01-05] MEDS: METOPROLOL TARTRATE 50 MG TABLET PO SCH ×3 (06:10→22:16)
--- NOTE | 2019-01-05 06:28 | NUR ---
CLOSING NOTES Patient in bed, asleep, no s/s of acute distress noted. Breathing even and unlabored. HOB raised. Soft wrist restraints in place. All needs met throughout shift. Fall and safety precautions maintained throughout shift. Sitter present at bedside at all times. Will continue to monitor until patient care is endorsed to oncoming dayshift nurse.
[2019-01-05 07:30] VITALS: BP_SYST 131
--- NOTE | 2019-01-05 07:30 | NUR ---
opENING NOTES rECEIVED PT IN BED, PT IS AAOX1, RESTLESS, VITALS WNL EXCEPT FOR HEART RATE OF 108, PT HAS NO FEVER. SAFETY PRECAUTION IN PLACE, BED ALARM ON, BED IN LOW POSITION. PT ON BILATERAL WRIST RESTRAINT, SITTER AT BEDSIDE. PT ON CONTINUOUS MONITORING.
[2019-01-05] MEDS: MUPIROCIN 2% TOPICAL OINTMENT 22 GM TP SCH ×2 (08:15→23:15)
[2019-01-05] MEDS: DIGOXIN 0.5 MG/2 ML AMP IVP SCH (08:26)
[2019-01-05] MEDS: CARVEDILOL 6.25 MG TABLET (COREG) PO SCH ×2 (09:00→22:15)
--- NOTE | 2019-01-05 09:30 | NUR ---
P.T. HERE TO WORK WITH PT. PT UNABLE TO TOLERATE, PT SAT ON THE EOB BUT UNABLE TO STAND. PT WAS SHORT OF BREATH, ENCOURAGED PT TO TAKE DEEP BREATH AND PT PLACE ON OXYGEN 2L PER NC. WITH ENCOURAGEMENT PT WENT BACK TO BED. PT STATED HE WILL NOT PULL OUT ANYTHING OR TRY TO GET OUT OF BED, BUT PT TRIED TO GET OUT OF AFTER A FEW MINUTES.
--- NOTE | 2019-01-05 10:10 | NUR ---
DR HERNANDEZ AND DR WALLACE HERE AND SEEN PT. DR WALLACE TOOF OFF RESTRAINT FOR PT'S RIGHT WRIST AND NOT AFTER ABOUT A MINUTE PATIENT PULLED ON HIS GOWN. PLACED BACK THE RESTRAINT.
[2019-01-05 10:51] LABS: BASOPHILS % (AUTO) 0.2 % (0.0-2.0); EOSINOPHILS % (AUTO) 0.1 % (0.0-4.0); HEMATOCRIT 43.7 % (36-54); HEMOGLOBIN 13.9 g/dL (14.0-18.0); LYMPHOCYTES # (AUTO) 0.6 K/uL (1.0-5.5); LYMPHOCYTES % (AUTO) 5.7 % (20.5-51.5); MEAN CORPUSCULAR HEMOGLOBIN 26 pg (27-31); MEAN CORPUSCULAR HGB CONC 32 % (32-36); MEAN CORPUSCULAR VOLUME 80 fL (79.0-98.0); MONOCYTES # (AUTO) 0.9 K/uL (0.0-1.0); MONOCYTES % (AUTO) 8.7 % (1.7-9.3); NEUTROPHILS # (AUTO) 8.5 K/uL (1.8-7.7); NEUTROPHILS % (AUTO) 85.3 % (40.0-70.0); PLATELET COUNT (AUTO) 136 K/uL (130-430); RED BLOOD CELL COUNT(AUTO) 5.47 MIL/uL (4.2-6.2); RED CELL DISTRIBUTION WIDTH 26.6 % (9.0-15.0); WHITE BLOOD COUNT (AUTO) 9.9 K/uL (4.8-10.8)
[2019-01-05 11:05] LABS: CALCIUM 9.6 mg/dL (8.4-11.0); CREATININE 1.11 mg/dL (0.55-1.30); POTASSIUM 4.8 mmol/L (3.5-5.1)
--- NOTE | 2019-01-05 11:09 | NUR ---
PT STILL RESTLESS AFTER GIVEN HALDOL AND BENADRYL.
[2019-01-05 11:13] LABS: ALBUMIN 2.9 g/dL (3.4-4.8); TOTAL BILIRUBIN 4.8 mg/dL (0.0-1.0)
--- NOTE | 2019-01-05 11:51 | NUR ---
CRANIOLOGIST AT BEDSIDE. PT UNCOOPERATIVE , RESTLESS.
[2019-01-05] MEDS: LORazepam 2 MG/ML VIAL IVP PRN (11:59)
[2019-01-05] MEDS: QUEtiapine FUMARATE 100 MG TABLET PO SCH ×3 (12:00→22:15)
--- NOTE | 2019-01-05 12:05 | NUR ---
PATIENT TAKEN DOWN TO CT SCAN. PT WAS GIVEN
[2019-01-05 12:45] VITALS: BP_SYST 126
--- NOTE | 2019-01-05 12:45 | NUR ---
PT CAME BACK TO ROOM FROM CT, PT STILL SEDATED. OPENS EYES WITH CHEST RUB. MD ORDERED TO MONITOR PATIENT FOR 30 MORE MINUTES.
--- NOTE | 2019-01-05 14:00 | NUR ---
PT STILL SLEEPING, AROUSABLE TO VOICE AND CHEST RUB BUT EASILY GOES BACK TO SLEEP. VITALS WNL. O2 SAT AT 94-96% ON BIPAP.
--- NOTE | 2019-01-05 15:30 | NUR ---
PT AWAKE NOW FROM SEDATION. BIPAP REMOVED. PT NOW ON ROOM AIR WITH GOOD O2 SAT. SITTER AT BEDSIDE.
[2019-01-05 16:33] VITALS: BP_SYST 133
[2019-01-05] MEDS: ONDANSETRON HCL 4 MG/2 ML VIAL IVP PRN (18:08)
--- NOTE | 2019-01-05 18:15 | NUR ---
DIRECT OBSERVATION FOR THIS PATIENT ENDORSED TO NA Q. PT IS ON STABLE CONDITION.
--- NOTE | 2019-01-05 18:27 | NUR ---
CLOSING NOTES, PT HAS BEEN STABLE THE WHOLE SHIFT, WAS NPO FOR BREAKFAST AND DINNER. PT HAD CT OF THE HEAD WITH SEDATION GIVEN BY DR MEJIA. PT WOKE UP AT 1530. PT HAS BEEN ON DO THE WHOLE TIME. CT RESULT NOT READ YET. WILL ENDORSE TO NIGHT NURSE.
--- NOTE | 2019-01-05 18:51 | NUR ---
Patient is sitting quietly in bed while receiving Respiratory Therapy breathing mask treatment. Head of bed raised upright. No signs of distress noted right now. Will continue to monitor.
--- NOTE | 2019-01-05 19:20 | NUR ---
OPENING NOTE Received patient lying in bed, awake and confused. No signs of acute respiratory distress observed. Breathing is even and unlabored. HOB raised. Bilateral soft wrist restraints in place, no injuries noted. Bed is locked and at lowest position. Sitter is present at bedside. Will continue to monitor.
[2019-01-05 19:35] VITALS: BP_SYST 135
--- NOTE | 2019-01-05 21:00 | NUR ---
Patient is resting in bed. Sitter is present and restraints are in place. No respiratory distress is observed. Will continue to monitor.
--- NOTE | 2019-01-06 00:01 | NUR ---
Patient resting in bed. Eyes closed and no signs of acute distress noted. Sitter at bedside and restraints assessed and no injury observed. Will continue to monitor.
[2019-01-06] MEDS: IPRATROPIUM/ALBUTEROL SULFATE 3 ML AMPUL.NEB (DUONEB) INH SCH ×4 (01:46→20:02)
--- NOTE | 2019-01-06 02:30 | NUR ---
Patient still resting in bed. Eyes closed and no signs of acute distress noted. Sitter at bedside. Will continue to monitor.
--- NOTE | 2019-01-06 04:10 | NUR ---
Patient awake and confused. Patient tolerated PO meds well with no signs of adverse reaction. No respiratory distress observed. Will continue to monitor.
[2019-01-06 05:40] VITALS: BP_SYST 135
[2019-01-06] MEDS: methylPREDNISolone SOD SUCC/PF 62.5 MG/ML VIAL IVP SCH ×3 (05:49→21:49)
[2019-01-06] MEDS: LACTULOSE 20 GM/30 ML UDC PO SCH ×3 (05:50→21:45)
[2019-01-06] MEDS: METOPROLOL TARTRATE 50 MG TABLET PO SCH ×3 (05:58→21:48)
--- NOTE | 2019-01-06 06:43 | NUR ---
CLOSING NOTES Patient is resting in Bed. No signs of acute distress or labored breathing observed. Patient has sitter at bedside. Restraints are in place, no injury observed. Ammonia level will be noted to the oncoming shift and Lactulose has been given. Will endorse care to the oncoming shift.
[2019-01-06 06:53] LABS: ALBUMIN 2.5 g/dL (3.4-4.8); BILIRUBIN,DIRECT 3.1 mg/dL (0.0-0.3)
[2019-01-06 07:45] VITALS: BP_SYST 125
--- NOTE | 2019-01-06 08:00 | NUR ---
OPENING NOTES Received pt in bed, pt has sitter at bedside. pt is aaox1, no s/s of pain, no sob, no distress. pt has bilat wrist restraint to prevent pulling of lines and getting out of bed. vitals wnl, hr is 108, pt is afib on the monitor.
[2019-01-06] MEDS: DIGOXIN 0.5 MG/2 ML AMP IVP SCH (08:23)
[2019-01-06] MEDS: CARVEDILOL 6.25 MG TABLET (COREG) PO SCH ×2 (08:23→21:48)
[2019-01-06] MEDS: MUPIROCIN 2% TOPICAL OINTMENT 22 GM TP SCH (08:24)
[2019-01-06] MEDS: LORazepam 2 MG/ML VIAL IVP PRN (10:47)
--- NOTE | 2019-01-06 10:47 | NUR ---
Pt given Ativan for agiatation, patient has been screaming. sitter at bedside.
[2019-01-06] MEDS ORDERED: ASPIRIN 81 MG TABLET(ECOTRIN) PO ONE (11:30)
[2019-01-06] MEDS: QUEtiapine FUMARATE 100 MG TABLET PO SCH ×3 (11:42→21:46)
[2019-01-06 12:00] VITALS: BP_SYST 128
--- NOTE | 2019-01-06 14:24 | NUR ---
pT IN BED, RESTING, NO SOB, SITTER AT BEDSIDE.
[2019-01-06 15:14] VITALS: BP_SYST 125
[2019-01-06 17:12] VITALS: BP_SYST 127
--- NOTE | 2019-01-06 19:00 | NUR ---
Closing notes, pt has been on restraint and sitter the whole shift. no injury from restraints. given ativan x1 today. will endorse to night nurse.
--- NOTE | 2019-01-06 19:10 | NUR ---
OPENING NOTES Received patient resting in bed. HOB elevated and no acute respiratory distress observed. Restraints are on and no injury is observed. Sitter is present at bedside. Bed is at lowest position and bed alarm is on. Will continue to monitor.
[2019-01-06 20:00] VITALS: BP_SYST 124
--- NOTE | 2019-01-06 21:00 | NUR ---
ROUNDS/MED PASS/INCONTINENT CARE Patient resting in bed, incontinent care being done by REGISTERED PUBLIC SURVEYOR. No acute respiratory distress observed. Scheduled medications administered, patient tolerated well. Soft wrist restraints in place. No signs of injuries noted. All needs met at this time. Sitter present with patient. Will continue to monitor.
--- NOTE | 2019-01-06 23:00 | NUR ---
ROUNDS Patient asleep. No acute respiratory distress observed. Soft wrist restraints in place. No signs of injuries noted. All needs met at this time. Sitter present with patient. Will continue to monitor.
[2019-01-07] VITALS (7 sets, daily range): BP systolic 109–159
[2019-01-07] MEDS: MUPIROCIN 2% TOPICAL OINTMENT 22 GM TP SCH ×3 (00:40→20:59)
[2019-01-07] MEDS: IPRATROPIUM/ALBUTEROL SULFATE 3 ML AMPUL.NEB (DUONEB) INH SCH ×4 (01:00→19:00)
--- NOTE | 2019-01-07 01:00 | NUR ---
ROUNDS Patient sleeping comfortably. No signs of acute respiratory distress observed. Soft wrist restraints in place. No signs of injuries noted. All needs met at this time. Sitter present with patient. Will continue to monitor.
--- NOTE | 2019-01-07 03:00 | NUR ---
ROUNDS Patient asleep in bed. No acute respiratory distress observed. Sitter present at bedside and soft wrist restraints in place. No signs of injury noted. Patient will be continued to be monitored. Bed at lowest position.
--- NOTE | 2019-01-07 05:00 | NUR ---
ROUNDS/MED PASS Patient is awake and confused. No signs of acute respiratory distress observed. HOB elevated. Medications administered, tolerated well. Soft wrist restraints in place. No signs of injuries noted. Sitter present with patient. Will continue to monitor.
[2019-01-07] MEDS: methylPREDNISolone SOD SUCC/PF 62.5 MG/ML VIAL IVP SCH ×3 (05:33→20:59)
[2019-01-07] MEDS: LACTULOSE 20 GM/30 ML UDC PO SCH ×3 (05:33→21:00)
[2019-01-07] MEDS: METOPROLOL TARTRATE 50 MG TABLET PO SCH ×3 (05:40→21:06)
--- NOTE | 2019-01-07 06:17 | NUR ---
CLOSING NOTES Patient resting comfortably in bed. HOB elevated. No signs of acute distress or discomfort observed. Soft wrist restraints in place. Sitter present at bedside throughout shift. All needs met at this time. Call light within reach, bed alarm on, and bed at lowest position. Will endorse care to oncoming shift.
[2019-01-07 07:07] LABS: BASOPHILS % (AUTO) 0.3 % (0.0-2.0); HEMATOCRIT 41.1 % (36-54); HEMOGLOBIN 13.4 g/dL (14.0-18.0); LYMPHOCYTES # (AUTO) 0.5 K/uL (1.0-5.5); LYMPHOCYTES % (AUTO) 4.9 % (20.5-51.5); MEAN CORPUSCULAR HEMOGLOBIN 26 pg (27-31); MEAN CORPUSCULAR HGB CONC 33 % (32-36); MEAN CORPUSCULAR VOLUME 80 fL (79.0-98.0); MONOCYTES # (AUTO) 0.5 K/uL (0.0-1.0); MONOCYTES % (AUTO) 5.3 % (1.7-9.3); NEUTROPHILS # (AUTO) 8.4 K/uL (1.8-7.7); NEUTROPHILS % (AUTO) 89.5 % (40.0-70.0); PLATELET COUNT (AUTO) 162 K/uL (130-430); RED BLOOD CELL COUNT(AUTO) 5.14 MIL/uL (4.2-6.2); RED CELL DISTRIBUTION WIDTH 26.8 % (9.0-15.0); WHITE BLOOD COUNT (AUTO) 9.4 K/uL (4.8-10.8)
[2019-01-07] MEDS: LORazepam 2 MG/ML VIAL IVP PRN ×3 (07:19→21:17)
--- NOTE | 2019-01-07 07:27 | NUR ---
Initial notes: Patient on bed resting. Stable. On bilateral restraint. On 5150 and sitter at bedside. Safety measures in placed. Report received from MIRIAM Whittington.
--- NOTE | 2019-01-07 07:31 | NUR ---
notes: Patient saying "he's dying due to heart failure". Patient keeps on yelling "help, wants to get out of here". Patient agitated. Ativan given as ordered.
[2019-01-07 07:52] LABS: ALANINE AMINOTRANSFERASE 77 U/L (12-78); ALBUMIN 2.6 g/dL (3.4-4.8); ASPARTATE AMINOTRANSFERASE 41 U/L (10-37); CALCIUM 9.1 mg/dL (8.4-11.0); CHLORIDE 101 mmol/L (98-107); CREATININE 0.97 mg/dL (0.55-1.30); DIGOXIN 0.6 ng/mL (0.80-2.00); GLUCOSE 131 mg/dL (70-99); POTASSIUM 4.7 mmol/L (3.5-5.1); SODIUM SERUM 133 mmol/L (136-145); TOTAL BILIRUBIN 3.6 mg/dL (0.0-1.0); UREA NITROGEN, BLOOD 42 mg/dL (8-21)
[2019-01-07 07:55] LABS: ANION GAP < 3 (5-15); GFR AFRICAN AMERICAN 106 mL/min (>90)
--- NOTE | 2019-01-07 08:41 | NUR ---
notes: Patient ambulates to the toilet with 2 assist with unsteady gait. Sponge bath given. Changed gown and linens. Patient went back to bed uses walker and assist. Patient went back to sleep.
[2019-01-07] MEDS: DIGOXIN 0.5 MG/2 ML AMP IVP SCH (08:49)
[2019-01-07] MEDS: ASPIRIN 81 MG TABLET(ECOTRIN) PO SCH (08:56)
[2019-01-07] MEDS: CARVEDILOL 6.25 MG TABLET (COREG) PO SCH ×2 (08:57→21:02)
[2019-01-07] MEDS: DOCUSATE SODIUM 100 MG CAPSULE PO SCH ×2 (08:58→21:02)
--- NOTE | 2019-01-07 10:12 | NUR ---
notes: patient sleeping. no distress noted.
--- NOTE | 2019-01-07 10:51 | NUR ---
Med-Psych Placement: MEDIEVAL ENGLISH LITERATURE PROFESSOR spoke with Caitlyn from [facility] @ [phone] who stated that they are encountering the same problems with patient. The call center called this morning; [facility], [facility] and [facility] has no open beds available. Addendum: 01/07/19 at 1615 by Aubrey Avila MSW MEDIEVAL ENGLISH LITERATURE PROFESSOR phoned Caitlyn from [facility] regarding a possible SNF/Psych placement; per Caitlyn, attempts have been made but no one is accepting the patient. Call center [facility] faxed SS/CM a list of SNF-psych facilities; copy provided to WILFRED Mcknight. MEDIEVAL ENGLISH LITERATURE PROFESSOR faxed new [phone] hold to [facility] - expires on 01/07 @ 06:45pm.
[2019-01-07] MEDS: QUEtiapine FUMARATE 100 MG TABLET PO SCH ×3 (11:48→21:17)
--- NOTE | 2019-01-07 12:26 | NUR ---
notes: Patient woke up. Ambulates with a walker going to the toilet. Voided. Went back to bed. Lunch served with feeding assist. Patient no strength on his meter maintenance person. Tried feeding himself. Resting on bed.
--- NOTE | 2019-01-07 12:34 | NUR ---
Behavior: Patient states "someone at the door". Nobody at the door and tried reorienting the patient. Then he keeps on calling his "dad". Became agitated and walked to the door. He saw an elder patient. He thought it was his dad. Re-orienting the patient. Able to went back to bed. Addendum: 01/07/19 at 1257 by Sherry Blount RN Patient called his "mom" and became restless. Ativan given as ordered. Went back to sleep.
--- NOTE | 2019-01-07 12:52 | NUR ---
Nutrition F/U RD reviewed pt's current EMR including diet Hx, physician notes, nursing notes, pertinent labs/meds/procedures, care trends and care activity. Current Diet Order: 2gm Na, Cardiac, Pureed diet x 15 days Subjective information: Pt seen sleeping in bed w/ sitter RN at bedside. Per RN report, pt is off restraints and tried to feed himself for breakfast. Pt had no surveyor chain helper and RN ended up feeding pt, which she reported was able to finish 75% of food in tray. Sitter also reported that pt was agitated this morning. Per bed huddle discussion, pt is being sedated less so he can be able to eat and drink. Noted improving PO intake. Current PO intake: Good 75% average of 3 meals 01/06/19. ESTIMATED NUTRITIONAL REQUIREMENTS CALORIES/DAY: 6538-4064 kcal/day (25-30 kcal/kg IBW for Obesity) PROTEIN/DAY: 71-134 gm/day (.8-1.5 gm/kg IBW for Renal Dz and COPD) FLUID/DAY: per MD (Renal Dz) D: 1. Morbid Obesity r/t inability to access healthier food choices AEB possible consumption of high calorie food and beverage from fast food restaurants and convenient stores, homelessness and BMI 40 kg/m2. *ongoing 2. Inadequate nutrient intake r/t medication intake AEB PO intake not meeting 75% of estimated needs and nursing staff report. *improving I: 1. Recommend continuing 2 gm Na, cardiac, puree diet (ONS Ensure Enlive comes standard w/ pureed diet (1050 kcal/day, 60 gm protein/day) 2. Encourage pt to increase PO intake. M: Monitor appetite and PO intake w/ goal of pt meeting at least 75% of estimated nutritional needs, labs trending WNL, normal GI function, skin integrity/wt maintenance. E: RD to F/U within 3-5 days
--- NOTE | 2019-01-07 12:58 | NUR ---
Dietitian Recommendation I: 1. Recommend continuing 2 gm Na, cardiac, puree diet (ONS Ensure Enlive comes standard w/ pureed diet (1050 kcal/day, 60 gm protein/day) 2. Encourage pt to increase PO intake. ARLETTE, RD
--- NOTE | 2019-01-07 14:00 | NUR ---
Notes: Patient's came for a visit. Patient's sleeping.
--- NOTE | 2019-01-07 14:50 | NUR ---
Notes: Patient ambulates with a walker going to the toilet to void.
--- NOTE | 2019-01-07 15:00 | NUR ---
Behavior: Patient woke up. Ambulate to the toilet. Asking about his his and what the said. He became restless and agitated. He walked at the hallway with walker, sat on the floor and lay down himself. Security came and helped carried him to the bed. Placed bilateral wrist restraint back. Haldol I.M. given and Benadryl IVP per order. .
[2019-01-07] MEDS: HALOPERIDOL LACTATE 5 MG/ML VIAL IM PRN (15:16)
[2019-01-07] MEDS: DIPHENHYDRAMINE INJ 50 MG/ML VIAL IVP PRN (15:17)
--- NOTE | 2019-01-07 17:19 | NUR ---
Notes: Patient on bed keep on screaming and yelling for "Dad". Restless and aggressive.
--- NOTE | 2019-01-07 17:30 | NUR ---
Notes: Patient assisted on feeding. Ate 75% of dinner meal. After dinner, patient sleeping.
--- NOTE | 2019-01-07 18:43 | NUR ---
Closing notes: Patient on bed sleeping. Stable. No labored breathing observed. Needs attended. On bilateral wrist restraints. Sitter at bedside. Safety measures in placed. Report will be given to night shit.
--- NOTE | 2019-01-07 19:30 | NUR ---
ASSUMPTION OF CARE Received report from AM shift RN. Pt in bed sleeping arousable to voice. VSS tolerating room air with 97 O2 saturation. IV patent with no infiltration noted. Denies chest pain. Bilateral soft wrist restraint in placed with no redness around the wrist and good circulation noted. Bilateral upper and lower extremity edema noted. Safety precaution observed. Call light within reach. Will continue to monitor Pt.
[2019-01-08] VITALS: BP_SYST 143
--- NOTE | 2019-01-08 | NUR ---
Pt in bed, no acute distress at this time. Will continue to monitor Pt.
[2019-01-08] MEDS: IPRATROPIUM/ALBUTEROL SULFATE 3 ML AMPUL.NEB (DUONEB) INH SCH ×4 (01:00→18:36)
[2019-01-08] MEDS: LORazepam 2 MG/ML VIAL IVP PRN ×2 (02:48→21:12)
[2019-01-08 04:00] VITALS: BP_SYST 149
[2019-01-08] MEDS: LACTULOSE 20 GM/30 ML UDC PO SCH ×3 (05:46→22:53)
[2019-01-08] MEDS: methylPREDNISolone SOD SUCC/PF 62.5 MG/ML VIAL IVP SCH ×3 (05:46→22:53)
[2019-01-08] MEDS: METOPROLOL TARTRATE 50 MG TABLET PO SCH ×3 (05:47→22:56)
--- NOTE | 2019-01-08 06:22 | NUR ---
Pt in bed, no acute distress at this time. IV lines and skin checked. Will endorse Pt to oncoming RN.
[2019-01-08 07:22] VITALS: BP_SYST 149
--- NOTE | 2019-01-08 08:00 | NUR ---
Note Pt sitting up in bed being assisted in eating his breakfast by sitter/CARRI Carrillo at this time. No SOB/resp distress or pain/discomfort noted at this time. Pt's tele unit attached and intact. IV in right upper arm intact and patent. Pt has bilateral wrist restraints at this time. No needs noted. Call light within reach.
[2019-01-08] MEDS: DIGOXIN 0.5 MG/2 ML AMP IVP SCH (09:13)
[2019-01-08] MEDS: ASPIRIN 81 MG TABLET(ECOTRIN) PO SCH (09:14)
[2019-01-08] MEDS: CARVEDILOL 6.25 MG TABLET (COREG) PO SCH ×2 (09:14→20:41)
[2019-01-08] MEDS: DOCUSATE SODIUM 100 MG CAPSULE PO SCH ×2 (09:14→20:39)
[2019-01-08] MEDS: MUPIROCIN 2% TOPICAL OINTMENT 22 GM TP SCH ×2 (09:16→20:41)
--- NOTE | 2019-01-08 11:00 | NUR ---
Note Pt was given bed bath and hygiene care for incontinence of urine. Pt turned and moved side to side with restraints off one side and then the other. Pt became aggressive, combative and attempted to bit RN. Pt was cleaned and then put back in restraints. 2 person needed for hygiene care and turning. Pt then fell back to sleep. Call light within reach.
--- NOTE | 2019-01-08 11:02 | NUR ---
Psychiatric Placement: SURVEILLANCE SYSTEM MONITOR phoned [facility] @ [phone] and spoke with Mariposa at great length regarding patient's current condition. SURVEILLANCE SYSTEM MONITOR faxed pt's new hold that was written on 01/07 @ 0930PM (expires 01/10 @ 0930PM), Psych progress report, Neuro Consult Report, EEG result and CT brain result. Per Mariposa, Call center will continue to look for placement; Mariposa verbalized concern on pt's medical clearance and the rejections they have been getting due to pt's condition. SS will continue to follow up and report if anything changes for the patient medically.
[2019-01-08 11:17] VITALS: BP_SYST 153
--- NOTE | 2019-01-08 11:56 | NUR ---
Treatment withheld today because of the patient's cognitive status and inability to follow commands. Discussed with the patient's nurse.
[2019-01-08] MEDS: QUEtiapine FUMARATE 100 MG TABLET PO SCH ×3 (12:05→20:40)
--- NOTE | 2019-01-08 13:30 | NUR ---
Note Pt resting in bed at this time after being fed his lunch by COURT WORKER/sitter at this time. Restraints on both wrists present all shift. No needs noted. Call light within reach.
--- NOTE | 2019-01-08 15:05 | NUR ---
Note Dr Pelaez on the floor and assessment of pt completed at this time. Orders written and carried out. Sitter at bedside assisting pt with needs and care. Bilateral wrist restraints on and keeping pt in bed and pt reassured continuously to keep calm at this time. Call light within reach.
[2019-01-08 16:00] VITALS: BP_SYST 156
--- NOTE | 2019-01-08 18:35 | NUR ---
Note Pt has been checked on q1' and PRN all shift for needs and care. Pt's MARISELA IV intact and patent all shift. Pt has been given hygiene care and partial bed bath all shift for incontinence of urine. Pt denies any pain/discomfort or SOB/resp distress. Pt had sitter at bedside all shift. Pt has restraints on bilaterally all shift due to aggressive behavior and hitting/biting/kicking staff. Pt very confused and agitated all shift. Pt did take all PO medications as scheduled. Pt was fed his 3 meals by sitter/RATTLE LEAK AND SQUEAK REPAIRER all shift. Call light within reach. No needs noted at this time.
--- NOTE | 2019-01-08 19:33 | NUR ---
OPENING NOTE Received patient resting in bed, w/ eyes closed, no sign of distress. IV to MARISELA. Bed is locked to lowest position, side rails up 4x. He has bilat wrist restraints on. Direct observer in room with patient.
[2019-01-08 20:00] VITALS: BP_SYST 143
--- NOTE | 2019-01-08 20:41 | NUR ---
Due medications Due medications given. Patient cooperated with one seroquel tablet, he swallowed it with pudding. He spit out the second tablet of seroquel and collace. I gave the second tablet of seroquel crushed and mixed in pudding and he tolerated. Direct observer in room with patient.
--- NOTE | 2019-01-08 21:12 | NUR ---
Agitated Patient agitated, is restless and screaming loud. The patient in neighboring room is complaining of loud noise. Ativan was given as ordered for agitation. Will monitor.
--- NOTE | 2019-01-08 22:53 | NUR ---
Due Medications Patient resting w/eyes closed, and calm. Blood pressure taken for due medication, Lopressor. Restraints released one at a time d/t patient's strength. Upon restraint release on left arm he was cooperative and moved arm around. Upon release of right arm, he was no longer calm and started sitting up and hanging on the bed rail. When asked to lay back down he started screaming. He was a little restless a few minutes and then the restraint was placed again. Direct observer in room with patient.
--- NOTE | 2019-01-09 00:30 | NUR ---
Rounds Patient is presently calm. V/S taken and B/P 122/77, HR 95. Direct observer with patient.
[2019-01-09] MEDS: IPRATROPIUM/ALBUTEROL SULFATE 3 ML AMPUL.NEB (DUONEB) INH SCH ×3 (01:00→19:27)
[2019-01-09] MEDS: HALOPERIDOL LACTATE 5 MG/ML VIAL IM PRN (02:53)
--- NOTE | 2019-01-09 02:57 | NUR ---
Agitated Rounds made at 0230 and release of restraint on left hand. Patient was awake and talking to nurse seismic survey assistant. I removed left restraint first and immediately patient turned to right side and pulled on left wrist restraint, he did not release it. Then immediately pulled off IV (tip intact). I tried to apply restraint and he was aggressive. He tried to grab my arm and attempted to kick me. I stepped back. The nurse seismic survey assistant and I can't calm him, I called security for help. Haldol IM given, with the assistance of three people holding him.
[2019-01-09 05:38] LABS: HEMATOCRIT 40.9 % (36-54); LYMPHOCYTES # (AUTO) 0.6 K/uL (1.0-5.5); LYMPHOCYTES % (AUTO) 3.8 % (20.5-51.5); MEAN CORPUSCULAR HEMOGLOBIN 25 pg (27-31); MEAN CORPUSCULAR HGB CONC 32 % (32-36); MEAN CORPUSCULAR VOLUME 80 fL (79.0-98.0); MONOCYTES # (AUTO) 0.8 K/uL (0.0-1.0); MONOCYTES % (AUTO) 5.2 % (1.7-9.3); NEUTROPHILS # (AUTO) 13.7 K/uL (1.8-7.7); PLATELET COUNT (AUTO) 215 K/uL (130-430); RED BLOOD CELL COUNT(AUTO) 5.12 MIL/uL (4.2-6.2); RED CELL DISTRIBUTION WIDTH 26.3 % (9.0-15.0); WHITE BLOOD COUNT (AUTO) 15.1 K/uL (4.8-10.8)
--- NOTE | 2019-01-09 06:00 | NUR ---
REPORT GIVEN BY CARRI Dangelo PATIENT CLAM RESTRAINTS ARE SECURE ROOM HAS BEEN CHECK AND ALL ITEMS WHICH CAN CAUSE HARM HAVE BEEN MOVED AWAY FROM PATIENT
[2019-01-09 06:49] LABS: ALBUMIN 2.7 g/dL (3.4-4.8); CREATININE 0.93 mg/dL (0.55-1.30); DIGOXIN 0.6 ng/mL (0.80-2.00); POTASSIUM 4.6 mmol/L (3.5-5.1)
[2019-01-09] MEDS: METOPROLOL TARTRATE 50 MG TABLET PO SCH ×3 (06:55→21:22)
[2019-01-09] MEDS: LACTULOSE 20 GM/30 ML UDC PO SCH ×3 (06:55→21:18)
--- NOTE | 2019-01-09 06:55 | NUR ---
IV Start / Closing note Patient calm, cooperating with bed bath being provided by direct observer. 22G IV started to LFA and patient cooperated and tolerated. Due medications given and patient cooperated and swallowed.
[2019-01-09 06:56] LABS: TOTAL BILIRUBIN 3.5 mg/dL (0.0-1.0)
[2019-01-09] MEDS: methylPREDNISolone SOD SUCC/PF 62.5 MG/ML VIAL IVP SCH (06:56)
--- NOTE | 2019-01-09 07:00 | NUR ---
BED BATH WAS GIVEN RESTRAINT WERE RELEASED DURING BATH PATIENT BRUSH TEETH AND WAS COOPERATIVE
--- NOTE | 2019-01-09 07:25 | NUR ---
Opening Note received bedside SBAR report from night clerk auditor RN, patient resting in bed, respirations even and unlabored on room air, no acute distress noted, educated patient on use of call light and asked to call for assistance, patient verbalized understanding, call light in reach, bed in low and locked position, bed alarm on, sitter at bedside.
[2019-01-09 08:00] VITALS: BP_SYST 189
--- NOTE | 2019-01-09 08:00 | NUR ---
RN IS TALKING TO PATIENT AND TAKEN PATIENTS VITALS
--- NOTE | 2019-01-09 08:04 | NUR ---
Physician Rounds Dr. Medina at bedside examining patient, informed Dr. Medina of current BP 189/119, per Dr. Medina given scheduled AM medications, no new orders.
[2019-01-09] MEDS: CARVEDILOL 6.25 MG TABLET (COREG) PO SCH (08:08)
[2019-01-09] MEDS: DIGOXIN 0.5 MG/2 ML AMP IVP SCH (08:09)
[2019-01-09] MEDS: ASPIRIN 81 MG TABLET(ECOTRIN) PO SCH (08:09)
[2019-01-09] MEDS: DOCUSATE SODIUM 100 MG CAPSULE PO SCH ×2 (08:09→21:17)
[2019-01-09] MEDS: MUPIROCIN 2% TOPICAL OINTMENT 22 GM TP SCH ×2 (08:14→21:19)
--- NOTE | 2019-01-09 08:38 | NUR ---
Physician Rounds Dr. Ann at bedside examining patient.
[2019-01-09] MEDS ORDERED: POLYETHYLENE GLYCOL 3350, 17 GM/ POWD.PACK PO PRN (08:45)
--- NOTE | 2019-01-09 09:00 | NUR ---
PATIENT IS VERY RESTLESS AND SCREAMING, PATIENT IS BEING REDIRECTED EACH TIME HE HAS YELLING BEHAVIORS
[2019-01-09] MEDS ORDERED: LOSARTAN POTASSIUM 50 MG TABLET (COZAAR) PO ONE (09:30)
--- NOTE | 2019-01-09 10:00 | NUR ---
PATIENT CALM REMOVED RESTRAINT ON EACH ARM FOR 15 MIN PATIENT WAS VERY COMPLIANT AND WAS REDIRECTED FOR EACH BEHAVIOR
--- NOTE | 2019-01-09 10:06 | NUR ---
PATIENT AWAKE TALKING TO TRAIN CREW MEMBER GETTING BLOOD DRAWN
--- NOTE | 2019-01-09 10:20 | NUR ---
RN Rounds patient resting in bed, respirations even and unlabored on room air, no acute distress noted, sitter at bedside.
--- NOTE | 2019-01-09 11:05 | NUR ---
PATIENT LAYING IN BED WITH EYES CLOSED NURSE WORKING WITH PATIENT TO INSERT IV
--- NOTE | 2019-01-09 11:14 | NUR ---
IV access patient was restless and removed IV catheter, catheter intact, no bleeding, gown changed, educated patient on purpose and procedure for IV catheter placement, patient verbalized understanding, IV catheter placed to right wrist, 22G, flushes easily with blood return, patient, tolerated well, patient resting in bed, no acute distress noted, sitter at bedside.
[2019-01-09 11:34] VITALS: BP_SYST 126
--- NOTE | 2019-01-09 12:05 | NUR ---
PT LAYING IN BED WITH EYES CLOSED PT HAS BEEN CALM AND QUIETED
[2019-01-09] MEDS: QUEtiapine FUMARATE 100 MG TABLET PO SCH ×3 (12:26→21:18)
--- NOTE | 2019-01-09 12:33 | NUR ---
RN Rounds patient sitting up in bed eating lunch with assistance from C SOFTWARE ENGINEER, patient tolerating well, HOB elevated.
--- NOTE | 2019-01-09 13:00 | NUR ---
PATIENT LAYING IN BED YELLING. PATIENT HAS BEEN REDIRECTED EACH TIME
--- NOTE | 2019-01-09 13:55 | NUR ---
Physical Therapy patient ambulating in room with physical therapy and walker, unsteady gait, patient assisted back to bed, patient resting in bed, no acute distress noted, sitter at bedside.
--- NOTE | 2019-01-09 14:05 | NUR ---
PATIENT IS AWAKE CALM JUST FINISHED LUNCH ATE 90%
--- NOTE | 2019-01-09 14:24 | NUR ---
Psych/Medical Transfer: HOME RESTORATION SERVICE CLEANER spoke with Feroz from the Call center this morning regarding possible transfer. Per Feroz, no beds available for [facility], [facility] and [facility]. HOME RESTORATION SERVICE CLEANER phoned [facility] (p: [phone], f: [phone]) and spoke with Nimco RN and discussed pt's complex case with her. Per Nimco, their weight capacity for their beds are 240 lbs and they don't accept pt's on a bi-pap but is willing to accept clinicals and will present case to Dr. Sepulveda (attending MD). Received call from Nimco RN, who stated that Dr. Sepulveda has denied pt due to no availability on bed and SS is to continue calling and may reconsider when bed becomes available. HOME RESTORATION SERVICE CLEANER phoned [facility] abd spoke with Xiao RN (p: [phone]) who stated that they don't accept pt's on bipap and is unable to accommodate pt's larger than 300 lbs. Xiao stated that if they were able to accommodate pt, our CM/SS will have to arrange SNF placement prior to acceptance to their facility. Xiao suggested calling recuperative care, such as [facility] and [facility]. Discussed option with Roxanna Gardiner CM, recuperative care is not appropriate for pt due to complexity and acuity. HOME RESTORATION SERVICE CLEANER phoned [facility] (p: [phone]) who states their facility cannot accommodate pt's more than 300 lbs. HOME RESTORATION SERVICE CLEANER phone [facility] (p: [phone]) and spoke with Obey PINEDA, who stated they don't accept transfers from other facilities. They can only accommodate walk-ins or pt's brought in by PD, and ambulance from the community.
--- NOTE | 2019-01-09 15:00 | NUR ---
PT AWAKE AND YELLING PATIENT IS REDIRECTED EACH TIME OF BEHAVIORS
[2019-01-09] MEDS: LORazepam 2 MG/ML VIAL IVP PRN ×2 (15:50→21:40)
--- NOTE | 2019-01-09 15:57 | NUR ---
Agitated patient yelling and kicking, attempted to redirect and calm patient, patient continuing agitated behavior, PRN ativan indicated for agitation, patient tolerated medication administration well, no acute distress noted, patient resting in bed, respirations even and unlabored on room air, sitter at bedside.
[2019-01-09 16:00] VITALS: BP_SYST 148
--- NOTE | 2019-01-09 16:00 | NUR ---
PT LAYING IN BED KICKING FOOT OF BED, SCREAMING, YELLING,AND CUSSING SUMMER RN MADE AWARE OF PATIENT BEHAVIORS MEDS WERE GIVEN VITALS WERE TAKEN FLUIDS WERE ALSO GIVEN
--- NOTE | 2019-01-09 17:57 | NUR ---
RN Rounds patient sitting up in bed eating dinner with assistance from CLINIC MD ASSOCIATE, patient tolerating well, patient denies any pain or nausea, no acute distress noted, sitter at bedside.
--- NOTE | 2019-01-09 18:19 | NUR ---
report given to amanda gilla
--- NOTE | 2019-01-09 18:45 | NUR ---
OPENING MY NOTES:PT IS LYING ON BED SLEEPING,NO SIGNS OF DISTRESS.
--- NOTE | 2019-01-09 19:25 | NUR ---
BEDSIDE REPORT: RECEIVED BEDSIDE REPORT FROM MIRIAM ANDERSON. PATIENT IN BED WITH EYES CLOSE,SNORING. JUST FINISHED BREATHING TREATMENTS, NO GOWN,ON PARKER.WRIST RESTRAINTS,WRISTS /HANDS WITH NORMAL COLOR ,RADIAL PULSES PRESENT,MOVES HANDS FREELY. SINUS RHYTHM ON TELEMONITOR.VERY OBESE. SITTER AT BEDSIDE. WILL MONITOR CLOSELY.
--- NOTE | 2019-01-09 19:27 | NUR ---
Closing Note bedside SBAR report given to receiving RN, patient resting in bed, respirations even and unlabored on room air, no acute distress noted, educated patient on use of call light and asked to call for assistance, patient verbalized understanding, call light in reach, bed in low and locked position, bed alarm on, sitter at bedside, care endorsed to coal trimmer RN.
--- NOTE | 2019-01-09 19:40 | NUR ---
PT IS JUST WOKE UP HE HAD A BREATHING TREATMENT,STARTED TO BE RESTLESS.
--- NOTE | 2019-01-09 20:30 | NUR ---
HYGIENE: JOSE LUIS AD SKIN CARE RENDERED BY CARRI DOMINGUEZ DUE TO URINE INCONTINENT AND HELPED REPOSITIONED.CHECKED WRIST RESTRAINT SITES WITH GOOD CIRCULATION.
--- NOTE | 2019-01-09 21:15 | NUR ---
WOKE PATIENT UP FOR VITAL SIGNS AND MEDS ADMIN: VITAL SIGNS TAKEN,ALL WITHIN NORMAL LIMITS.MOANING AND GROANING,TURNING TO SIDES,SITTING UP IN BED.PULLING UP RESTRAINTS, CALM DOWN AFTER SITTER TALKS TO HIM. ALL DUE MEDS CRUSHED ,GAVE WITH APPLE SAUCE WITHOUT PROBLEM. REPOSITIONED FOR COMFORTS .
[2019-01-09] MEDS: PREDNISONE 20 MG TABLET PO SCH (21:17)
--- NOTE | 2019-01-09 21:40 | NUR ---
AGITATION: KICKING RAILS OF FOOT OF BED,YELLING LOUD,PULLING OFF WRIST RESTRAINTS. ATIVAN 2MG IV GIVEN ORDERED.
--- NOTE | 2019-01-09 22:30 | NUR ---
ROUNDS: PATIENT CALM, SLEEPING ,BREATHING PATTERN REGULAR. SITTER AT BEDSIDE.
--- NOTE | 2019-01-09 23:30 | NUR ---
ROUNDS: PATIENT SLEEPING WITH ONE SHEET COVER. SITTER AT BEDSIDE.
[2019-01-10] VITALS (7 sets, daily range): BP systolic 117–138
--- NOTE | 2019-01-10 00:30 | NUR ---
HYGIENE DONE BY FELIPA ADLER. Addendum: 01/11/19 at 0319 by Jeanne Valentin RN TIME OF THIS NOTES IS 0030 01/11/19.
--- NOTE | 2019-01-10 01:30 | NUR ---
PATIENT CONTINUE TO SLEEP THIS ROUNDS., BREATHING PATTERN REGULAR.
[2019-01-10] MEDS: IPRATROPIUM/ALBUTEROL SULFATE 3 ML AMPUL.NEB (DUONEB) INH SCH ×4 (01:40→20:38)
--- NOTE | 2019-01-10 02:40 | NUR ---
HYGIENE: WOKE PATIENT UP. INCONTINENT OF LARGE AMT. IVON COLOR URINE. JOSE LUIS AND SKIN CARE RENDERED BY 2 STAFFS.
--- NOTE | 2019-01-10 04:00 | NUR ---
PATIENT CONTINUE TO SLEEP. NO DISTRESS. SITTER AT BEDSIDE.
--- NOTE | 2019-01-10 05:49 | NUR ---
CONTINUE RESTING WITH EYES CLOSE.NO ACUTE DISTRESS.
--- NOTE | 2019-01-10 06:30 | NUR ---
ROOM CHECK WAS DONE ALL THINGS OF HARM HAVE BEEN REMOVED FROM PATIENT AND ROOM. PATIENT RESTLESS AND YELLING WITH EYES CLOSED REPORT WAS GIVEN BY ANKUR MCLEAN CNA.
--- NOTE | 2019-01-10 07:30 | NUR ---
PATIENT IS RESTLESS, AWAKE, AND YELLING EACH TIME OF BEHAVIOR PATIENT IS REDIRECTED
--- NOTE | 2019-01-10 07:35 | NUR ---
Opening Note received bedside SBAR report from shift boss RN, patient resting in bed, respirations even and unlabored on room air, no acute distress noted, bed in low and locked position, bed alarm on, sitter at bedside.
[2019-01-10] MEDS: LACTULOSE 20 GM/30 ML UDC PO SCH ×3 (07:38→21:38)
[2019-01-10] MEDS: METOPROLOL TARTRATE 50 MG TABLET PO SCH ×3 (07:38→21:40)
--- NOTE | 2019-01-10 08:30 | NUR ---
PATIENT AWAKE RESTLESS, AND YELLING PATIENT IS BEING REDIRECTED FOR EACH BEHAVIOR
[2019-01-10] MEDS: ASPIRIN 81 MG TABLET(ECOTRIN) PO SCH (09:28)
[2019-01-10] MEDS: DIGOXIN 0.5 MG/2 ML AMP IVP SCH (09:28)
[2019-01-10] MEDS: LOSARTAN POTASSIUM 50 MG TABLET (COZAAR) PO SCH (09:28)
[2019-01-10] MEDS: MUPIROCIN 2% TOPICAL OINTMENT 22 GM TP SCH ×2 (09:29→21:41)
[2019-01-10] MEDS: DOCUSATE SODIUM 100 MG CAPSULE PO SCH ×2 (09:29→21:39)
[2019-01-10] MEDS: PREDNISONE 20 MG TABLET PO SCH ×2 (09:29→21:39)
--- NOTE | 2019-01-10 09:40 | NUR ---
RN Rounds patient resting in bed, respirations even and unlabored, patient denies any pain, patient calm, no acute distress noted.
--- NOTE | 2019-01-10 10:04 | NUR ---
PATIENT LAYING IN BED RESTING WITH EYES CLOSED
[2019-01-10 10:06] LABS: ALBUMIN 2.7 g/dL (2.9-4.4); ALPHA-1-GLOBULIN 0.2 g/dL (0.0-0.4); ALPHA-2-GLOBULIN 0.6 g/dL (0.4-1.0); GAMMA GLOBULIN 0.9 g/dL (0.4-1.8); GLOBULIN, TOTAL 2.8 g/dL (2.2-3.9); M-SPIKE Not Observed g/dL (Not Observed)
--- NOTE | 2019-01-10 10:25 | NUR ---
Agitated/Patient on floor per physical therapy he was starting physical therapy with patient and patient crawled onto the ground, RN entered room, patient was on hands and knees crawling on floor, patient was refusing assistance, patient was refusing to get up, patient was yelling and swinging arms at staff, security was called, patient was noncooperative with staff and combative, patient was attempting to throw himself onto floor, patient was assisted back to bed, soft wrist restraints in place, informed Dr. Cooper and Dr. Pelaez of incident and that haldol, benadryl, and ativan were given, patient resting in bed, no injury noted, sitter at bedside.
[2019-01-10] MEDS: HALOPERIDOL LACTATE 5 MG/ML VIAL IM PRN (10:31)
[2019-01-10] MEDS: DIPHENHYDRAMINE INJ 50 MG/ML VIAL IVP PRN (10:33)
[2019-01-10] MEDS: LORazepam 2 MG/ML VIAL IVP PRN (10:36)
--- NOTE | 2019-01-10 10:57 | NUR ---
Band Machine Operator Art from the [facility], , called. They will follow up with [facility] and [facility] today. Addendum: 01/10/19 at 1337 by Aniya Narayanan [facility] Noted that patient has been denied due to weight over 300 lbs. Called Alisia PINEDA. Patient is currently 324 lbs. Patient's meds were adjusted today. Patient currently cannot be placed due to several factors including weight over 300 lbs, restraints, and bipap.
--- NOTE | 2019-01-10 11:17 | NUR ---
Physician Rounds Dr. Barros at bedside speaking with patient
--- NOTE | 2019-01-10 11:20 | NUR ---
PATIENT LAYING IN BED YELLING PATIENT HAS BEEN REDIRECTED FOR BEHAVIORS
--- NOTE | 2019-01-10 11:26 | NUR ---
Physician Rounds Dr. Pelaez at bedside examining patient.
--- NOTE | 2019-01-10 11:28 | NUR ---
PATIENT'S BEHAVIOR IS AGITATED, UNPREDICTABLE, AND UNSAFE FOR FURTHER PHYSICAL THERAPY INTERVENTION, AT THIS TIME. PLAN: CONTINUE TO MONITOR HIS BEHAVIOR AND HIS ABILITY TO SAFELY PARTICIPATE IN FURTHER TREATMENT. RECOMMEND HOLDING PHYSICAL THERAPY INTERVENTION UNTIL WHEN THE PATIENT CAN SAFELY PARTICIPATE.
[2019-01-10] MEDS: QUEtiapine FUMARATE 100 MG TABLET PO SCH ×3 (12:18→21:39)
--- NOTE | 2019-01-10 12:20 | NUR ---
PATIENT LAYING IN BED WITH EYES CLOSED YELLING BEHAVIOR WAS REDIRECTED AND PATIENT WAS ALSO CHANGE
--- NOTE | 2019-01-10 13:20 | NUR ---
PATIENT LAYING IN BED WITH EYES CLOSED YELLING, REDIRECTING BEHAVIOR EACH TIME
--- NOTE | 2019-01-10 13:34 | NUR ---
RN Rounds patient yelling and kicking, redirected patient, patient resting in bed with eyes closed, respirations even and unlabored on room air, no acute distress noted.
--- NOTE | 2019-01-10 14:20 | NUR ---
PATIENT LAYING BED WITH EYES CLOSED CALM AND QUITE
--- NOTE | 2019-01-10 15:13 | NUR ---
RN Rounds patient resting in bed, respirations even and unlabored on room air, patient calm, sitter at bedside.
--- NOTE | 2019-01-10 15:20 | NUR ---
PATIENT IS CALM AND QUIET RESTING IN BED WITH EYES CLOSED
--- NOTE | 2019-01-10 16:38 | NUR ---
PATIENT IS CALM AND QUIET RESTING IN BED WITH EYES CLOSED
--- NOTE | 2019-01-10 17:06 | NUR ---
RN Rounds patient resting in bed, respirations even and unlabored on room air, no acute distress noted, patient calm, sitter at bedside.
--- NOTE | 2019-01-10 17:20 | NUR ---
PT AWAKE SCREAMING AND YELLING VERY RESTLESS REDIRECTED BEHAVIORS
--- NOTE | 2019-01-10 18:10 | NUR ---
REPORT GIVEN TO NOC SHIFT BOX CAR CHECKER PATIENT CALM AND QUITE
--- NOTE | 2019-01-10 19:20 | NUR ---
Closing Note bedside SBAR report given to receiving RN, patient resting in bed, respirations even and unlabored on room air, no acute distress noted, bed in low and locked position, bed alarm on, sitter at bedside, care endorsed to overnight houseperson RN.
--- NOTE | 2019-01-10 20:00 | NUR ---
INITIAL NOTES: RECEIVED REPORT FROM MIRIAM ANDERSON AT BEDSIDE AT 192O. PATIENT IN BED ,SLEEPING TILL THIS TIME. MOANS WHEN APPLYING BP CUFF AND CALLED HIS NAME. BREATHING REGULARLY. SITTER AT BEDSIDE. VITAL SIGNS STABLE. SALINE LOCK PATENT. HAS GENERALIZED EDEMA. ON BOTH WRIST RESTRAINTS.WITH GOOD NORMAL SKIN,WARM TO TOUCH, NO REDNESS NOR DISCOLORATION. CONTROLLED A FIB ON TELEMONITOR. HAS GOWN ON. WILL MONITOR CLOSELY.
--- NOTE | 2019-01-10 21:10 | NUR ---
HYGIENE: JOSE LUIS AD SKIN CARE RENDERED BY CARRI JOHNSON AND HELPS TURN.
[2019-01-10] MEDS: clonazePAM 0.5 MG TABLET PO SCH (21:39)
--- NOTE | 2019-01-10 21:40 | NUR ---
MEDS PASS: ALL DUE MEDS CRUSHED,TAKEN WITH APPLE SAUCE WITHOUT PROBLEM.OPENS EYES SPONTANEOUSLY.
--- NOTE | 2019-01-10 23:00 | NUR ---
RN ROUNDS: PATIENT IN BED WITH EYES CLOSE WITH HEAD OF BED ELEVATED 45 DEGREES.NO DISTRESS.
[2019-01-11 00:32] VITALS: BP_SYST 124
[2019-01-11] MEDS: IPRATROPIUM/ALBUTEROL SULFATE 3 ML AMPUL.NEB (DUONEB) INH SCH ×4 (01:23→20:05)
--- NOTE | 2019-01-11 01:30 | NUR ---
RN ROUNDS: PATIENT RESTING WITH EYES CLOSE SNORING. BREATHING THROUGH MOUTH WITH SYMETRICAL PATTERN.
--- NOTE | 2019-01-11 03:00 | NUR ---
RN ROUNDS: PATIENT CONTINUE TO SLEEP. BREATHING PATTERN REGULAR. SITTER AT BEDSIDE.
[2019-01-11 05:44] LABS: ALANINE AMINOTRANSFERASE 108 U/L (12-78); ALBUMIN 2.5 g/dL (3.4-4.8); ASPARTATE AMINOTRANSFERASE 42 U/L (10-37); CALCIUM 8.9 mg/dL (8.4-11.0); CHLORIDE 104 mmol/L (98-107); CREATININE 0.94 mg/dL (0.55-1.30); DIGOXIN 0.6 ng/mL (0.80-2.00); GLUCOSE 117 mg/dL (70-99); POTASSIUM 4.6 mmol/L (3.5-5.1); SODIUM SERUM 137 mmol/L (136-145); TOTAL BILIRUBIN 2.6 mg/dL (0.0-1.0); UREA NITROGEN, BLOOD 31 mg/dL (8-21)
--- NOTE | 2019-01-11 05:45 | NUR ---
woke patient for hygiene. due to large incontinent urine. started yelling and pulling up restraint. NEW IV LINE INSERTED TO RIGHT HAND SINCE CURRENT IV NEEDLE KINKED. #22 GAUGE USED. ATIVAN 2MG IV GIVEN.
[2019-01-11 05:47] LABS: ANION GAP < 3 (5-15); GFR AFRICAN AMERICAN 110 mL/min (>90)
[2019-01-11 05:55] LABS: BASOPHILS % (AUTO) 0.3 % (0.0-2.0); EOSINOPHILS % (AUTO) 0.3 % (0.0-4.0); HEMOGLOBIN 11.9 g/dL (14.0-18.0); LYMPHOCYTES # (AUTO) 0.6 K/uL (1.0-5.5); LYMPHOCYTES % (AUTO) 5.3 % (20.5-51.5); MEAN CORPUSCULAR HEMOGLOBIN 25 pg (27-31); MEAN CORPUSCULAR HGB CONC 31 % (32-36); MEAN CORPUSCULAR VOLUME 80 fL (79.0-98.0); MONOCYTES # (AUTO) 1.1 K/uL (0.0-1.0); NEUTROPHILS # (AUTO) 10.4 K/uL (1.8-7.7); NEUTROPHILS % (AUTO) 85.1 % (40.0-70.0); PLATELET COUNT (AUTO) 192 K/uL (130-430); RED BLOOD CELL COUNT(AUTO) 4.74 MIL/uL (4.2-6.2); RED CELL DISTRIBUTION WIDTH 26.5 % (9.0-15.0); WHITE BLOOD COUNT (AUTO) 12.2 K/uL (4.8-10.8)
[2019-01-11] MEDS: LORazepam 2 MG/ML VIAL IVP PRN ×3 (06:27→18:10)
[2019-01-11] MEDS: METOPROLOL TARTRATE 50 MG TABLET PO SCH ×3 (06:53→21:38)
[2019-01-11] MEDS: LACTULOSE 20 GM/30 ML UDC PO SCH ×3 (06:53→21:37)
--- NOTE | 2019-01-11 07:00 | NUR ---
CLOSING: FULL REPORT GIVEN TO MIRIAM DASH FOR CONTINUITY OF CARE.ALL NEEDS ATTENDED. NO ACUTE DISTRESS. SLEPT AT LONG INTERVALS DUE TO INCREASE OF PSYCH MEDS. TOOK ALL MEDS WITH APPLE SAUCE.ALL NEEDS MET.
--- NOTE | 2019-01-11 07:15 | NUR ---
sbar report received at the bedside. patient alert awake but confused. has bilateral wrist restraints. screaming/shouting loud. nite nurse gave ativan early. due to kicking and screaming/shouting loud. has iv access on the rt hand #22. bed in low position, alarmed and locked still with one to one sitter. will continue to monitor patients status.
[2019-01-11 07:16] VITALS: BP_SYST 151
--- NOTE | 2019-01-11 08:00 | NUR ---
FED THE PATIENT ABLE TO EAT 80% OF FOOD CONSUMED TOLERATING WELL.
[2019-01-11] MEDS: DOCUSATE SODIUM 100 MG CAPSULE PO SCH ×2 (08:01→21:37)
[2019-01-11] MEDS: PREDNISONE 20 MG TABLET PO SCH ×2 (08:01→21:38)
[2019-01-11] MEDS: DIGOXIN 0.5 MG/2 ML AMP IVP SCH (08:01)
[2019-01-11] MEDS: ASPIRIN 81 MG TABLET(ECOTRIN) PO SCH (08:02)
[2019-01-11] MEDS: clonazePAM 0.5 MG TABLET PO SCH ×2 (08:02→21:37)
[2019-01-11] MEDS: LOSARTAN POTASSIUM 50 MG TABLET (COZAAR) PO SCH (08:02)
--- NOTE | 2019-01-11 08:15 | NUR ---
SCREAMING AND SHOUTING. BOTH EYES CLOSED. COMFORT PATIENT U NEED TO RELAX AND PRAY.
--- NOTE | 2019-01-11 08:25 | NUR ---
PATIENT ASLEEP. HAD BREATHING TREATMENT GIVEN. HOB ELEVATED.
--- NOTE | 2019-01-11 08:45 | NUR ---
patient went to sleep soundly. till 1045am today.
--- NOTE | 2019-01-11 09:04 | NUR ---
DR WALLACE CAME AND EVALUATE THE PATIENT
--- NOTE | 2019-01-11 09:22 | NUR ---
patient sleep and quite/resting for now.
--- NOTE | 2019-01-11 09:40 | NUR ---
STILL ASLEEP SOUNDLY. BREATHING EVEN AND UNLABORED.
[2019-01-11] MEDS: MUPIROCIN 2% TOPICAL OINTMENT 22 GM TP SCH ×2 (11:10→21:39)
[2019-01-11] MEDS: QUEtiapine FUMARATE 100 MG TABLET PO SCH ×3 (11:17→21:37)
--- NOTE | 2019-01-11 11:17 | NUR ---
ativan 2 mg iv given. made comfortable.
--- NOTE | 2019-01-11 11:26 | NUR ---
very restless again. screaming/shouting.
[2019-01-11 12:30] VITALS: BP_SYST 116
[2019-01-11] MEDS: DIPHENHYDRAMINE INJ 50 MG/ML VIAL IVP PRN (14:36)
[2019-01-11] MEDS: HALOPERIDOL LACTATE 5 MG/ML VIAL IM PRN (14:36)
--- NOTE | 2019-01-11 14:36 | NUR ---
haldol iv and benadryl iv given at this time. very very restless and screaming and shouting. every 15 minutes monitoring sheet at the bedside one and one sitter and bilateral wrist restraint.
[2019-01-11 16:49] VITALS: BP_SYST 139
--- NOTE | 2019-01-11 18:05 | NUR ---
Isabell PINEDA feeding the patient. patient eating good for now. but still restless.
--- NOTE | 2019-01-11 18:10 | NUR ---
ativan 2 mg iv given. for restlessness. made comfortable.
--- NOTE | 2019-01-11 19:10 | NUR ---
OPENING NOTE Bedside report received from dayshift nurse. Patient received lying in bed, sleeping, snoring, HOB raised. No s/s of acute distress noted. Breathing even and unlabored. Soft wrist restraints in place, no signs of injuries noted. Sitter present at bedside, MIRIAM Whittington. Bed is locked and at lowest position. Will continue to monitor.
[2019-01-11 20:00] VITALS: BP_SYST 129
--- NOTE | 2019-01-11 21:00 | NUR ---
DO NOTE Patient in bed, asleep, snoring. No s/s of acute distress noted. Breathing even and unlabored, HOB raised. Soft wrist restraints in place. Sitter at bedside. All needs met. Will continue to monitor.
--- NOTE | 2019-01-11 23:00 | NUR ---
DO NOTE Patient sleeping comfortably. No signs of discomfort noted. Chest rise and fall even bilaterally, snoring, HOB raised. Soft wrist restraints in place. Sitter present at bedside. Will continue to monitor.
--- NOTE | 2019-01-11 23:45 | NUR ---
PERICARE Addie care done by METAL TESTER and RN at this time. Patient tolerated well. No s/s of acute distress noted. Breathing even and unlabored. HOB raised. Sitter present at bedside. Will continue to monitor.
[2019-01-12] VITALS: BP_SYST 129
[2019-01-12] MEDS: IPRATROPIUM/ALBUTEROL SULFATE 3 ML AMPUL.NEB (DUONEB) INH SCH ×4 (01:00→20:27)
--- NOTE | 2019-01-12 01:15 | NUR ---
DO NOTES Patient sleeping at this time. No s/s of acute distress noted. Breathing even and unlabored. HOB raised. Soft wrist restraints in place. Sitter present at bedside. Will continue to monitor.
--- NOTE | 2019-01-12 02:56 | NUR ---
DO NOTES Patient asleep at this time. No signs of discomfort note. Chest rise and fall even bilaterally. HOB raised. Soft wrist restraints in place. No signs of injury noted. Sitter present at bedside. Will continue to monitor.
--- NOTE | 2019-01-12 05:00 | NUR ---
INCONTINENT CARE Patient cleaned by RN and HIGH SCHOOL ACADEMIC COACH at this time. Patient tolerated well, patient fell back asleep right after. No signs of discomfort noted. Chest rise and fall even bilaterally. HOB raised. Sitter present at bedside. Will continue to monitor.
[2019-01-12] MEDS: LACTULOSE 20 GM/30 ML UDC PO SCH ×3 (05:26→21:02)
[2019-01-12] MEDS: METOPROLOL TARTRATE 50 MG TABLET PO SCH ×3 (05:26→21:03)
--- NOTE | 2019-01-12 06:24 | NUR ---
CLOSING NOTE Patient in bed asleep. No s/s of acute distress noted. Breathing even and unlabored. HOB raised. Soft wrist restraints in place, no signs of injuries noted. Skin warm and dry to touch. Sitter present at bedside. All needs met throughout shift. Fall and safety precautions maintained throughout shift. Will continue to monitor until patient care is endorsed to oncoming dayshift nurse.
[2019-01-12] MEDS: LORazepam 2 MG/ML VIAL IVP PRN ×3 (06:51→16:42)
--- NOTE | 2019-01-12 08:10 | NUR ---
INITIAL ROUNDS Received pt AAOx2, confused, restless and forgetful at times. No s/s resp distress, no c/o pain or discomfort. Sitter at bedside for pt safety, pt on bilat soft-wrist restraints for safety. Plan of care for the day reviewed with pt-pt just stated he wanted to go home. Pain management, skin and safet discussed-pt just stated "Okay", will reinforce all teachings.
[2019-01-12 08:15] VITALS: BP_SYST 128
[2019-01-12] MEDS: DOCUSATE SODIUM 100 MG CAPSULE PO SCH ×2 (09:51→21:02)
[2019-01-12] MEDS: PREDNISONE 20 MG TABLET PO SCH ×2 (09:51→21:02)
[2019-01-12] MEDS: DIGOXIN 0.5 MG/2 ML AMP IVP SCH (09:51)
[2019-01-12] MEDS: ASPIRIN 81 MG TABLET(ECOTRIN) PO SCH (09:51)
[2019-01-12] MEDS: clonazePAM 0.5 MG TABLET PO SCH ×2 (09:52→21:02)
[2019-01-12] MEDS: LOSARTAN POTASSIUM 50 MG TABLET (COZAAR) PO SCH (09:52)
[2019-01-12] MEDS: HALOPERIDOL 5 MG TABLET (HALDOL) PO SCH ×3 (09:52→21:02)
--- NOTE | 2019-01-12 10:05 | NUR ---
ROUNDS Pt sat up and took his medications, pt shouts out and pulls at restraints at times. Pt stated "I'm scared!"-pt reassured that he is safe. Sitter remains at beside.
--- NOTE | 2019-01-12 12:15 | NUR ---
ANXIOUS, Pt c/o feeling feeling very anxious and scared, pulling at his restraints. Pt reassured that he is safe with sitter at his bedside. Pt given Ativan as ordered. All precautions remain in place.
[2019-01-12] MEDS: QUEtiapine FUMARATE 100 MG TABLET PO SCH ×2 (12:29→18:21)
[2019-01-12 12:38] VITALS: BP_SYST 132
--- NOTE | 2019-01-12 13:47 | NUR ---
Nutrition F/U RD reviewed pt's current EMR including diet Hx, physician notes, nursing notes, pertinent labs/meds/procedures, care trends, and care activity. Current Diet Order: 2 gm Na, cardiac, puree x20 days Subjective information: Pt seen awake in bed w/ bilateral wrist restraints and REVENUE SPECIALIST/sitter at bedside. Pt was able to communicate simply, w/ periods of confusion as well. Pt stated he has been eating wonderfully. REVENUE SPECIALIST stated pt ate 100% of breakfast and lunch today, but did not drink the Ensure Enlive ONS. BM x1 (pasty in texture). Bedscale wt taken: 314# (01/12/19) -- wt stable +/- 5 lb since admission date (319#; 12/14/18). Current PO intake: 92% average x12 meals -- consistently good for past week ESTIMATED NUTRITIONAL REQUIREMENTS CALORIES/DAY: 5712-3769 kcal/day (25-30 kcal/kg IBW for Obesity) PROTEIN/DAY: 71-134 gm/day (.8-1.5 gm/kg IBW for Renal Dz and COPD) FLUID/DAY: per MD (Renal Dz) D: 1. Morbid Obesity r/t inability to access healthier food choices AEB possible consumption of high calorie food and beverage from fast food restaurants and convenient stores, homelessness and BMI 40 kg/m2. *ongoing 2. Inadequate nutrient intake r/t medication intake AEB PO intake not meeting 75% of estimated needs and nursing staff report. *improved I: 1. Recommend continuing 2 gm Na, cardiac, puree diet (ONS Ensure Enlive comes standard w/ pureed diet (1050 kcal/day, 60 gm protein/day) 2. Encourage pt to increase PO intake. M: Monitor appetite and PO intake w/ goal of pt meeting at least 75% of estimated nutritional needs, labs trending WNL, normal GI function, skin integrity/wt maintenance. E: RD to F/U within 7 days
--- NOTE | 2019-01-12 13:55 | NUR ---
Dietitian Recommendations 1. Recommend continuing 2 gm Na, cardiac, puree diet (ONS Ensure Enlive comes standard w/ pureed diet (1050 kcal/day, 60 gm protein/day) 2. Encourage pt to increase PO intake. LP, RD Please refer to Nutrition F/U for details.
--- NOTE | 2019-01-12 14:11 | NUR ---
ROUNDS Pt resting quietly in bed with no s/s resp distress, no c/o pain or discomfort, pt still shouting out sporadically. Sitter remains at bedside.
--- NOTE | 2019-01-12 16:47 | NUR ---
ANXIOUS/YELLING Pt very anxious and agitated since his family left, pt yelling and pulling at restraints. Pt given Ativan as ordered, pt encouraged to try to relax. Sitter remains at bedside.
[2019-01-12 17:14] VITALS: BP_SYST 136
--- NOTE | 2019-01-12 18:35 | NUR ---
CLOSING NOTE Pt sitting up in bed receiving juice from the sitter/SUPERVISOR SANDING, pt remains restless, mumbling to himself, suddenly starts crying and stating he is scared-pt reassured that he is safe. Sitter remains at bedside.
--- NOTE | 2019-01-12 19:15 | NUR ---
OPENING NOTE Bedside report received from dayshift nurse. Patient received lying in bed, asleep, no s/s of acute distress noted. Breathing even and unlabored. HOB raised. Soft wrist restraints in place, no signs of injury noted. Sitter present at bedside. Bed is locked and at lowest position. Will continue to monitor.
[2019-01-12 20:00] VITALS: BP_SYST 115
--- NOTE | 2019-01-12 21:00 | NUR ---
ROUNDS Patient in bed asleep at this time. No signs of discomfort noted. Chest rise and fall even bilaterally. HOB raised. Soft wrist restraints in place. Sitter present at bedside. Will continue to monitor.
[2019-01-12] MEDS: QUEtiapine FUMARATE 200 MG TAB.SR.24H PO SCH (21:15)
--- NOTE | 2019-01-12 22:58 | NUR ---
ROUNDS Patient in bed sleeping comfortably. No s/s of acute distress noted. Breathing even and unlabored. HOB raised. Soft wrist restraints in place. Sitter present at bedside. Will continue to monitor.
[2019-01-13] VITALS (8 sets, daily range): BP systolic 122–132
--- NOTE | 2019-01-13 00:58 | NUR ---
ROUNDS Patient in bed asleep. No signs of discomfort noted. Chest rise and fall even bilaterally. Sitter present at bedside. Soft wrist restraints in place, no signs of injuries noted. Will continue to monitor.
[2019-01-13] MEDS: IPRATROPIUM/ALBUTEROL SULFATE 3 ML AMPUL.NEB (DUONEB) INH SCH ×4 (01:00→19:56)
--- NOTE | 2019-01-13 03:00 | NUR ---
ROUNDS Patient asleep in bed. No s/s of acute distress noted. HOB raised, breathing even and unlabored. Sitter present at bedside. Will continue to monitor.
[2019-01-13 04:27] LABS: EOSINOPHILS # (AUTO) 0.1 K/uL (0.0-0.4); EOSINOPHILS % (AUTO) 0.8 % (0.0-4.0); HEMATOCRIT 36.8 % (36-54); HEMOGLOBIN 11.8 g/dL (14.0-18.0); LYMPHOCYTES # (AUTO) 0.6 K/uL (1.0-5.5); LYMPHOCYTES % (AUTO) 5.9 % (20.5-51.5); MEAN CORPUSCULAR HEMOGLOBIN 26 pg (27-31); MEAN CORPUSCULAR HGB CONC 32 % (32-36); MEAN CORPUSCULAR VOLUME 80 fL (79.0-98.0); MONOCYTES # (AUTO) 0.7 K/uL (0.0-1.0); MONOCYTES % (AUTO) 6.5 % (1.7-9.3); NEUTROPHILS # (AUTO) 8.7 K/uL (1.8-7.7); NEUTROPHILS % (AUTO) 86.8 % (40.0-70.0); PLATELET COUNT (AUTO) 167 K/uL (130-430); RED BLOOD CELL COUNT(AUTO) 4.59 MIL/uL (4.2-6.2)
[2019-01-13 04:55] LABS: ALBUMIN 2.5 g/dL (3.4-4.8); CALCIUM 8.5 mg/dL (8.4-11.0); CREATININE 0.72 mg/dL (0.55-1.30); DIGOXIN 0.4 ng/mL (0.80-2.00); PHOSPHORUS 3.8 mg/dL (2.7-4.5); POTASSIUM 4.3 mmol/L (3.5-5.1); TOTAL BILIRUBIN 2.6 mg/dL (0.0-1.0)
--- NOTE | 2019-01-13 05:00 | NUR ---
INCONTINENT CARE Patient cleaned by CONSERVATION WORKER at this time. Patient tolerated procedure well. HOB raised. No s/s of acute distress. All needs met. Soft wrist restraints in place. Sitter at bedside.
[2019-01-13] MEDS: LACTULOSE 20 GM/30 ML UDC PO SCH ×3 (05:35→21:13)
[2019-01-13] MEDS: METOPROLOL TARTRATE 50 MG TABLET PO SCH ×3 (05:36→21:14)
--- NOTE | 2019-01-13 06:00 | NUR ---
PATIENT S IS CALM AND QUIETED LAYING IN BED WITH EYES CLOSED PATIENT IS CLEAN AND DRY REPORT RECEIVED FROM ARCHITECTURE INSTRUCTOR AUDITING CONTROL CLERK ROOM CHECK DONE ALL ITEMS OF HARM HAVE BEEN REMOVED AWAY FROM PATIENT
--- NOTE | 2019-01-13 06:26 | NUR ---
CLOSING NOTE Patient in bed asleep. No s/s of acute distress noted. Breathing even and unlabored. IV site patent, no signs of infiltration or infection noted. HOB raised. Soft wrist restraints in place, no signs of injuries noted, perfusion WNL. Four side rails up. Sitter present at bedside. All needs met throughout shift. Fall and safety precautions maintained throughout shift. Will continue to monitor until patient care is endorsed to oncoming dayshift nurse.
--- NOTE | 2019-01-13 07:00 | NUR ---
pt calm and quiet resting with eyes closed
--- NOTE | 2019-01-13 07:30 | NUR ---
Opening note Patient resting in bed at this time, no complaints, patient is asleep. A/Ox1. No SOB. vital signs stable. bilateral wrist restraints in place. On safety and aspiration precautions, HOB kept elevated, bed alarm on, 3 side rails up, call light within reach. Nurse Jacobo at bedside. No needs at this time. Patient in stable condition.
--- NOTE | 2019-01-13 08:03 | NUR ---
PATIENT IS CALM AND QUIET LAYING IN BED WITH EYES CLOSED GETTING HIS BREATHING TREATMENT
--- NOTE | 2019-01-13 09:00 | NUR ---
CHARGE NURSE AND RN NURSE WORKING WITH PATIENT GIVEN MEDS AND INSERTING IV PATIENT IS CRYING AND YELLING
--- NOTE | 2019-01-13 09:00 | NUR ---
Iv infiltrated Patients Iv infiltrated, inserted IV on left chest gauge 24 by charge nurse Roland. Iv patent and intact.
[2019-01-13] MEDS: DOCUSATE SODIUM 100 MG CAPSULE PO SCH ×2 (09:08→21:13)
[2019-01-13] MEDS: clonazePAM 0.5 MG TABLET PO SCH ×2 (09:09→21:12)
[2019-01-13] MEDS: ASPIRIN 81 MG TABLET(ECOTRIN) PO SCH (09:09)
[2019-01-13] MEDS: LOSARTAN POTASSIUM 50 MG TABLET (COZAAR) PO SCH (09:10)
[2019-01-13] MEDS: HALOPERIDOL 5 MG TABLET (HALDOL) PO SCH ×3 (09:10→21:13)
[2019-01-13] MEDS: PREDNISONE 20 MG TABLET PO SCH ×2 (09:10→21:12)
[2019-01-13] MEDS: DIGOXIN 0.5 MG/2 ML AMP IVP SCH (09:12)
[2019-01-13] MEDS: LORazepam 2 MG/ML VIAL IVP PRN ×2 (09:50→14:26)
--- NOTE | 2019-01-13 10:00 | NUR ---
PATIENTS IS RESTLESS CRYING AND YELLING RN GAVE MEDS BEHAVIORS ARE REDIRECTED
--- NOTE | 2019-01-13 11:00 | NUR ---
PATIENT IS RESTLESS TALKING WHILE PATIENT IS LAYING IN BED WITH EYES CLOSED
--- NOTE | 2019-01-13 12:00 | NUR ---
PATIENT IN BED VERY RESTLESS YELLING PATIENT ATE 100% OF LUNCH AND ALSO HAD BM PATIENT WAS CHANGE AND BEHAVIORS WERE REDIRECTED
[2019-01-13] MEDS: QUEtiapine FUMARATE 100 MG TABLET PO SCH ×2 (12:11→17:47)
--- NOTE | 2019-01-13 13:00 | NUR ---
PATIENT LAYING IN BED CALM AND QUIET WITH EYES CLOSED WILL CONTINUE TO CHART Q15 ON THE BEHAVIORAL HEALTH SPECIAL PRECAUTIONS/ OBSERVATION RECORDS
--- NOTE | 2019-01-13 14:00 | NUR ---
PATIENT LAYING BED WITH EYES CLOSED RESTLESS WHILE DOING BREATHING TREATMENT
--- NOTE | 2019-01-13 14:30 | NUR ---
Patient agitated Patient agitated, attempted to redirect behavior, and distractAtivan given,
--- NOTE | 2019-01-13 15:00 | NUR ---
PATIENT VERY RESTLESS LAYING IN BED YELLING WITH EYES CLOSED RN GAVE MEDS BEHAVIORS HAVE BEEN REDIRECTED PATIENT CHECK FOR WETNESS PATIENT WAS CLEAN AND DRY
--- NOTE | 2019-01-13 16:00 | NUR ---
PATIENT IS VERY RESTLESS LAYING IN BED WITH EYES CLOSED YELLING BEHAVIORS HAVE BEEN REDIRECTED MIRIAM QIU IS AWARE
--- NOTE | 2019-01-13 17:06 | NUR ---
PATIENT RESTLESS LAYING IN BED WITH EYES CLOSED YELLING BEHAVIORS WERE REDIRECTED
--- NOTE | 2019-01-13 18:03 | NUR ---
PATIENT LAYING IN BED RESTLESS YELLING PATIENT WAS REDIRECTED CHECK FOR WETNESS AND WAS CHANGE WILL ALSO CHART ON THE BEHAVIORAL HEALTH SPECIAL PRECAUTIONS/OBSERVATION RECORD FORM
--- NOTE | 2019-01-13 18:08 | NUR ---
Closing note Patient sitting up in bed at this time, eating dinner, tolerating well. No nausea, no vomiting noted. No SOB. vital signs stable. Patient is yelling, redirected behavior. Bilateral wrist restraints in place. On safety and aspiration precautions, HOB kept elevated, bed alarm on, 3 side rails up, call light within reach. Nurse Jacobo at bedside. Patient in stable condition.
--- NOTE | 2019-01-13 19:05 | NUR ---
OPENING NOTES Bedside report received from dayshift nurse. Patient received lying in bed, sleeping, no s/s of acute distress noted. Breathing even and unlabored, HOB raised, snoring. Soft wrist restraints in place, no signs of injuries noted, perfusion within normal limits. Sitter present at bedside. Bed locked and at lowest position. Will continue to monitor.
--- NOTE | 2019-01-13 20:55 | NUR ---
JOSE LUIS CARE Patient cleaned at this time by RN. Patient tolerated well. HOB raised. No signs of discomfort. Chest rise and fall even bilaterally. Sitter present at bedside. Will continue to monitor.
[2019-01-13] MEDS: QUEtiapine FUMARATE 200 MG TAB.SR.24H PO SCH (21:12)
--- NOTE | 2019-01-13 22:47 | NUR ---
DO NOTES Patient asleep. No s/s of acute distress. Breathing even and unlabored. HOB raised. Soft wrist restraints in place. Sitter present at bedside. Will continue to monitor.
[2019-01-14] VITALS: BP_SYST 118
--- NOTE | 2019-01-14 00:50 | NUR ---
DO NOTES Patient sleeping at this time. No s/s of acute distress noted. HOB raised. Breathing even and unlabored. Soft wrist restraints in place. Sitter present at bedside. All needs met. Will continue to monitor.
[2019-01-14] MEDS: IPRATROPIUM/ALBUTEROL SULFATE 3 ML AMPUL.NEB (DUONEB) INH SCH ×4 (00:58→19:00)
[2019-01-14] MEDS: LORazepam 2 MG/ML VIAL IVP PRN ×2 (01:43→10:20)
--- NOTE | 2019-01-14 01:43 | NUR ---
BEHAVIOR Patient awake, screaming, and kicking foot rail. RN unable to calm patient down. Redirection and distraction ineffective. PRN medication to be administered. Sitter present at bedside. Will continue to monitor and reassess.
--- NOTE | 2019-01-14 03:26 | NUR ---
DO NOTE Patient asleep at this time. No s/s of acute distress noted. Breathing even and unlabored. HOB raised. Soft wrist restraints in place. Sitter at bedside. Will continue to monitor.
[2019-01-14] MEDS: LACTULOSE 20 GM/30 ML UDC PO SCH ×3 (05:12→21:51)
[2019-01-14] MEDS: METOPROLOL TARTRATE 50 MG TABLET PO SCH ×3 (05:13→21:52)
--- NOTE | 2019-01-14 05:18 | NUR ---
DO NOTES Patient asleep at this time. No signs of discomfort noted. Chest rise and fall even bilaterally. HOB raised. Soft wrist restraints in place. Sitter at bedside. Will continue to monitor.
--- NOTE | 2019-01-14 06:38 | NUR ---
CLOSING NOTE Patient sleeping, no s/s of acute distress noted. Breathing even and unlabored, HOB raised, snoring. IV site patent, no signs of infiltration or infection noted. Soft wrist restraints in place, no signs of injuries noted. Sitter present at bedside throughout shift. Fall and safety precautions maintained throughout shift. All needs met throughout shift. Will continue to monitor until patient care is endorsed to oncoming dayshift nurse.
--- NOTE | 2019-01-14 07:00 | NUR ---
RECEIVED REPORT FROM KEIKO. PATIENT IS CALM BUT WITH OCCASIONAL BURST OF AGITATION. IV ON THE LEFT CHEST, #24, SL. CALL LIGHT IN PLACE, BED LOCKED AT THE LOWEST POSITION.
[2019-01-14 08:00] VITALS: BP_SYST 150
[2019-01-14] MEDS: PREDNISONE 20 MG TABLET PO SCH ×2 (08:24→21:52)
[2019-01-14] MEDS: DIGOXIN 0.25 MG TABLET PO SCH (08:25)
[2019-01-14] MEDS: LOSARTAN POTASSIUM 50 MG TABLET (COZAAR) PO SCH (08:25)
[2019-01-14] MEDS: clonazePAM 0.5 MG TABLET PO SCH ×2 (08:26→21:53)
[2019-01-14] MEDS: HALOPERIDOL 5 MG TABLET (HALDOL) PO SCH ×3 (08:26→21:53)
[2019-01-14] MEDS: ASPIRIN 81 MG TABLET(ECOTRIN) PO SCH (08:26)
[2019-01-14] MEDS: DOCUSATE SODIUM 100 MG CAPSULE PO SCH ×2 (09:00→21:52)
--- NOTE | 2019-01-14 09:00 | NUR ---
PATIENT HAD A DARK BM. DR. WALLACE IS INFORMED, AND NO NEW ORDERS WERE GIVEN.
--- NOTE | 2019-01-14 11:08 | NUR ---
PATIENT HAS AN EPISODE OF URINARY INCONTINENCE. HE IS CLEANED AND TURNED FOR COMFORT.
[2019-01-14] MEDS: QUEtiapine FUMARATE 100 MG TABLET PO SCH ×2 (11:56→18:15)
[2019-01-14 12:00] VITALS: BP_SYST 147
--- NOTE | 2019-01-14 12:35 | NUR ---
PATIENT FINISHED LUNCH. TOLERATED WITHOUT DISTRESS.
[2019-01-14] MEDS: HALOPERIDOL LACTATE 5 MG/ML VIAL IM PRN (13:57)
[2019-01-14] MEDS: DIPHENHYDRAMINE INJ 50 MG/ML VIAL IVP PRN (13:57)
--- NOTE | 2019-01-14 14:33 | NUR ---
Psych Placement Chiquis from [facility] called. The only two facilities that have the small chance of managing patient are [facility] and [facility]. Both are full. Again, patient will usually need to be off restraints for 24 hours and under 300 lbs. Nursing indicates that patient has not been on Bipap, another barrier to placement. BRIM EDGE TRIMMER noted patient is down to about 305 pounds today, as per chart. Psych SNF placement also cannot be attempted while patient continues to need restraints.
--- NOTE | 2019-01-14 15:15 | NUR ---
REPORT GIVEN FROM MIRIAM SUAREZ ROOM CHECK DONE ALL ITEMS AWAY FROM PATIENT WHICH COULD CAUSE HARM PATIENT IS CALM LAYING IN BED WITH EYES CLOSED CLEAN AND DRY
--- NOTE | 2019-01-14 16:15 | NUR ---
PATIENT IS CALM QUITE AND RESTING WITH EYES CLOSED
[2019-01-14 16:38] VITALS: BP_SYST 130
--- NOTE | 2019-01-14 17:15 | NUR ---
PATIENT LAYING IN BED WITH EYES CLOSED YELLING PATIENT WAS CHECKED FOR WETNESS PATIENT HAD URINE AND STOOL PATIENT IS CLEAN AND ATE 100% OF DINNER TRAY
--- NOTE | 2019-01-14 19:11 | NUR ---
PATIENT WAS CHANGE HAD RED STOOL MIRIAM SUAREZ AWARE GAVE REPORT TO NOC VINAY LEO
--- NOTE | 2019-01-14 19:21 | NUR ---
Initial note: Received report from akira RN. Patient is sitting up in bed awake. Alert and oriented to name only. Even and unlabored breathing on room air. 24 gauge IV site to left chest and 20 gauge IV site to right chest are patent and intact, saline locked. Bilateral soft wrist restraints in place per MD order. Sitter to remain present at bedside at all times. Bed is locked in lowest position, side rails raised, bed alarm on. Room is free of clutter and unsafe items. Will continue with plan of care.
[2019-01-14 20:38] VITALS: BP_SYST 143
--- NOTE | 2019-01-14 21:18 | NUR ---
Incontinence care: Patient had a BM with maroon-colored stool. Incontinence care was rendered, patient was repositioned for comfort. Will notify MD regarding stool.
--- NOTE | 2019-01-14 21:49 | NUR ---
Dr. Pelaez: Spoke with Dr. Pelaez over phone, MD was made aware regarding patient having 2 maroon-colored stool since 7PM. Dr. Pelaez ordered an occult blood stool sample. No further orders. RN to input.
--- NOTE | 2019-01-14 21:58 | NUR ---
Med pass: Medications scheduled for 2100 and 2200 were administered per MD order. PO tablets were crushed and administered with chocolate pudding. Patient tolerated well. Safety, fall precautions in place. Will continue to monitor.
[2019-01-14] MEDS: QUEtiapine FUMARATE 200 MG TAB.SR.24H PO SCH (22:03)
[2019-01-15] MEDS: IPRATROPIUM/ALBUTEROL SULFATE 3 ML AMPUL.NEB (DUONEB) INH SCH ×4 (00:21→19:20)
[2019-01-15 00:44] VITALS: BP_SYST 121
--- NOTE | 2019-01-15 01:33 | NUR ---
Sleeping: Patient is in bed sleeping comfortably. Occasionally becomes restless then falls back asleep. No acute distress. Tolerating room air, even and unlabored breathing. Safety, fall precautions in place. Sitter at bedside. Will continue monitoring.
--- NOTE | 2019-01-15 04:12 | NUR ---
Sleeping: Patient is resting comfortably in bed. No acute distress noted. Tolerating room air, even and unlabored breathing. Call light is with patient. Safety, fall precautions in place. Sitter at bedside. Will continue monitoring.
[2019-01-15 06:00] VITALS: BP_SYST 106; BP_SYST 72
[2019-01-15] MEDS: METOPROLOL TARTRATE 50 MG TABLET PO SCH ×3 (06:00→20:11)
[2019-01-15] MEDS: LACTULOSE 20 GM/30 ML UDC PO SCH ×3 (06:00→20:24)
[2019-01-15 06:11] LABS: ALANINE AMINOTRANSFERASE 89 U/L (12-78); ALBUMIN 2.1 g/dL (3.4-4.8); ASPARTATE AMINOTRANSFERASE 38 U/L (10-37); CALCIUM 8.4 mg/dL (8.4-11.0); CHLORIDE 107 mmol/L (98-107); CREATININE 0.73 mg/dL (0.55-1.30); DIGOXIN 0.6 ng/mL (0.80-2.00); POTASSIUM 4.8 mmol/L (3.5-5.1); SODIUM SERUM 139 mmol/L (136-145); TOTAL BILIRUBIN 2.1 mg/dL (0.0-1.0); UREA NITROGEN, BLOOD 23 mg/dL (8-21)
[2019-01-15 06:21] LABS: EOSINOPHILS # (AUTO) 0.1 K/uL (0.0-0.4); EOSINOPHILS % (AUTO) 0.7 % (0.0-4.0); HEMOGLOBIN 9.6 g/dL (14.0-18.0); LYMPHOCYTES # (AUTO) 0.7 K/uL (1.0-5.5); LYMPHOCYTES % (AUTO) 8.1 % (20.5-51.5); MEAN CORPUSCULAR HEMOGLOBIN 26 pg (27-31); MEAN CORPUSCULAR HGB CONC 32 % (32-36); MEAN CORPUSCULAR VOLUME 81 fL (79.0-98.0); MONOCYTES # (AUTO) 0.7 K/uL (0.0-1.0); MONOCYTES % (AUTO) 7.7 % (1.7-9.3); NEUTROPHILS # (AUTO) 7.4 K/uL (1.8-7.7); NEUTROPHILS % (AUTO) 83.5 % (40.0-70.0); PLATELET COUNT (AUTO) 151 K/uL (130-430); RED CELL DISTRIBUTION WIDTH 27.1 % (9.0-15.0); WHITE BLOOD COUNT (AUTO) 8.9 K/uL (4.8-10.8)
[2019-01-15 06:22] LABS: GFR AFRICAN AMERICAN 147 mL/min (>90)
[2019-01-15 06:23] LABS: ANION GAP < 3 (5-15); GLUCOSE 108 mg/dL (70-99)
--- NOTE | 2019-01-15 06:44 | NUR ---
Closing note: Patient is laying in bed, restless and talking incomprehensibly. Scheduled Lopressor was held for decreased BP of 106/72. Scheduled Enulose was held as patient had 3 loose, bloody bowel movements starting at 05:30. Patient was cleaned and repositioned for comfort. All needs met. Safety and fall precautions observed. Sitter remained at bedside throughout shift. Will endorse care to dayshift RN.
--- NOTE | 2019-01-15 07:15 | NUR ---
OPENING NOTE: Received SBAR report and plan of care from night coordinator RN.
[2019-01-15 08:00] VITALS: BP_SYST 130
[2019-01-15] MEDS: LOSARTAN POTASSIUM 50 MG TABLET (COZAAR) PO SCH (08:27)
[2019-01-15] MEDS: DOCUSATE SODIUM 100 MG CAPSULE PO SCH ×3 (08:27→20:24)
[2019-01-15] MEDS: HALOPERIDOL 5 MG TABLET (HALDOL) PO SCH ×3 (08:27→20:10)
[2019-01-15] MEDS: clonazePAM 0.5 MG TABLET PO SCH ×2 (08:27→20:10)
[2019-01-15] MEDS: DIGOXIN 0.25 MG TABLET PO SCH (08:28)
[2019-01-15] MEDS: PREDNISONE 20 MG TABLET PO SCH (08:28)
--- NOTE | 2019-01-15 09:00 | NUR ---
RN ROUNDS: Patient is AOx1, awake, agitated, restless and confused. Soft wrist restrainted are in place. Patient continues to mumble constantly, scream, and pull at his restraints. Peripheral IV sites to RT and LT chest are intact, patent, flushed well, dressings are clean dry and intact. Patient ate 100% of breakfast. Patient placed on NPO status after breakfast. Patient had 2 loose bloody stools. Some wheezing heard upon auscultation of lungs, otherwise breathing is even and unlabored, no signs of distress noted.
[2019-01-15] MEDS ORDERED: PANTOPRAZOLE SODIUM 40 MG/VIAL (PROTONIX) IVP ONE (09:15)
[2019-01-15] MEDS ORDERED: COMMUNICATION ORDER XX ONE (09:15)
[2019-01-15] MEDS ORDERED: OCTREOTIDE ACETATE 50 MCG/ML AMP IVP ONE (09:30)
--- NOTE | 2019-01-15 10:08 | NUR ---
Placement Bed huddle noted patient not medically stable for transfer. Notified Lyn at [facility].
[2019-01-15] MEDS: OCTREOTIDE ACETATE 500 MCG in NS 247.5 ML IV SCH (10:40)
[2019-01-15 10:53] LABS: INR 1.3 (0.80-1.20); PROTHROMBIN TIME 13.4 SECS (9.5-12.5)
--- NOTE | 2019-01-15 11:00 | NUR ---
RN ROUNDS: Patient remains is AOx1, awake, agitated, restless and confused. Soft wrist restrainted are in place. MD notified of loose bloody stools, new orders received. Patient placed on NPO status.
[2019-01-15 12:00] VITALS: BP_SYST 133
[2019-01-15] MEDS: DIPHENHYDRAMINE INJ 50 MG/ML VIAL IVP PRN ×2 (12:15→18:23)
[2019-01-15] MEDS: QUEtiapine FUMARATE 100 MG TABLET PO SCH ×2 (12:16→18:23)
[2019-01-15] MEDS: HALOPERIDOL LACTATE 5 MG/ML VIAL IM PRN ×2 (12:16→18:23)
--- NOTE | 2019-01-15 13:00 | NUR ---
RN ROUNDS: Patient remains confused, agitated, and is yelling, kicking the bed, pulling on his restraints. Patient is incontinent of bowel and blader, Loose bloody BM x6 so far this shift. Protonix and Sandostatin orders received. Awaiting orders for possible EGD tomorrow AM.
--- NOTE | 2019-01-15 15:00 | NUR ---
RN ROUNDS: Patient remains awake, AOx1, confused, agitated, restless, agressive at times. Restraints remain in place. Patient will try to flip himself out of the bed if restraints are removed for sanitary cleaning. EGD ordered for tomorrow AM, awaiting MD to speak with family for consent.
--- NOTE | 2019-01-15 15:10 | NUR ---
Spoke to Shannen Grajeda legal informed regarding schedule for EGD with monitored anesthesia ,she will be waiting for the call of data migration consultant and anesthesiologist to explained the procedure then give the consent .
[2019-01-15 15:55] LABS: BASOPHILS % (AUTO) 0.2 % (0.0-2.0); EOSINOPHILS % (AUTO) 0.1 % (0.0-4.0); HEMATOCRIT 28.7 % (36-54); HEMOGLOBIN 9.1 g/dL (14.0-18.0); LYMPHOCYTES # (AUTO) 0.7 K/uL (1.0-5.5); LYMPHOCYTES % (AUTO) 7.4 % (20.5-51.5); MEAN CORPUSCULAR HEMOGLOBIN 26 pg (27-31); MEAN CORPUSCULAR HGB CONC 32 % (32-36); MEAN CORPUSCULAR VOLUME 81 fL (79.0-98.0); MONOCYTES # (AUTO) 0.6 K/uL (0.0-1.0); MONOCYTES % (AUTO) 6.2 % (1.7-9.3); NEUTROPHILS # (AUTO) 8.5 K/uL (1.8-7.7); NEUTROPHILS % (AUTO) 86.1 % (40.0-70.0); PLATELET COUNT (AUTO) 146 K/uL (130-430); RED BLOOD CELL COUNT(AUTO) 3.56 MIL/uL (4.2-6.2); WHITE BLOOD COUNT (AUTO) 9.9 K/uL (4.8-10.8)
[2019-01-15 16:00] VITALS: BP_SYST 127
--- NOTE | 2019-01-15 17:00 | NUR ---
RN ROUNDS: Patient continues AOx1, awake, agitated, restless and confused. Soft wrist restrainted are in place. Patient continues to mumble constantly, scream, and pull at his restraints. Patient denies pain. Patient continues incontinent of bowel and bladder and cannot seem to use urinal or bedpan.
--- NOTE | 2019-01-15 18:00 | NUR ---
Patient extremely agitated, aggressive and combative. Patient kicking staff and bed controls at foot of bed. Patient broke restraint and was swinging at me trying to hit me, had to call security in order to replace the restraint. Notified Dr Pelaez of concern for daily Haldol max as patient is taking IM and scheduled PO haldol. said to administer IM and added ativan PRN for aggressive behavior.
--- NOTE | 2019-01-15 18:20 | NUR ---
CLOSING NOTE: Relieved by alternate sitter so that I could go take new admission.
--- NOTE | 2019-01-15 19:40 | NUR ---
Initial Note Received patient awake and confused. Reoriented to time and place. Sitter at the bedside. No SOB noted. Denies any pain or n/v at this time. IV med infusing on left chest peripheral line. Nicko wrists restraints. Incontinent x2. Skin intact, noted bruises and scars. Care and monitoring will be provided per protocol. Call light within reach. Bed alarm on and at lowest position at all times. Needs attended. Kept warm and comfortable. VS stable.
[2019-01-15 20:00] VITALS: BP_SYST 134
[2019-01-15] MEDS: PANTOPRAZOLE SODIUM 40 MG/VIAL (PROTONIX) IVP SCH (20:10)
--- NOTE | 2019-01-15 20:10 | NUR ---
RN Note Due meds given, tolerated well. Awake and confused. Reoriented to time, place and event. Patient wants his restraints off, lifts up and moves his legs. Skin integrity, circulation and movement on Nicko wrists WNL. Needs attended. Sitter at the bedside. Kept warm and comfortable.
[2019-01-15] MEDS: QUEtiapine FUMARATE 200 MG TAB.SR.24H PO SCH (21:00)
--- NOTE | 2019-01-15 22:30 | NUR ---
RN Note Patient seems restless. Had a big loose bloody stool. Incontinence care done. Patient a little feisty upon turning. Skin care done. Flushed 2 saline locks. Kept clean, dry and comfortable. Will continue to monitor.
[2019-01-15] MEDS: LORazepam 2 MG/ML VIAL IVP PRN (23:43)
--- NOTE | 2019-01-15 23:50 | NUR ---
Agitation Patient awake, restless, agitated, swears and confused. Medicated for restlessness. Sitter at the bedside. Had 4 loose bloody BMs since change of shift. Skin and incontinence care done. Kept clean, dry and comfortable. Will continue to monitor behavior.
[2019-01-16] VITALS (8 sets, daily range): BP systolic 109–136
[2019-01-16] MEDS: IPRATROPIUM/ALBUTEROL SULFATE 3 ML AMPUL.NEB (DUONEB) INH SCH ×4 (01:00→19:00)
--- NOTE | 2019-01-16 01:00 | NUR ---
RN Note Asleep, wakes up occasionally. Sitter at the bedside. Nicko wrist restraints on. Skin integrity, movement and circulation WNL. No SOB or grimacing noted.
--- NOTE | 2019-01-16 03:00 | NUR ---
RN NOTE PATIENT SLEEPING COMFORTABLY IN BED. NO SIGNS OF ACUTE DISTRESS.
[2019-01-16] MEDS ORDERED: OCTREOTIDE ACETATE 200 MCG/1 ML 5ML VIAL ONE (04:24)
[2019-01-16] MEDS: OCTREOTIDE ACETATE 500 MCG in NS 247.5 ML IV SCH (04:36)
[2019-01-16] MEDS: LACTULOSE 20 GM/30 ML UDC PO SCH ×3 (05:01→22:00)
[2019-01-16] MEDS: METOPROLOL TARTRATE 50 MG TABLET PO SCH ×4 (05:01→22:30)
--- NOTE | 2019-01-16 05:10 | NUR ---
CALLED MICHAEL CALLED MICHAEL AND SHE ANSWERED. SHE IS EXPECTING DR. EDWARD TO CALL HER TODAY AT 0730. I EXPLAINED THAT WE ARE EXPECTING HER TO COME LAST NIGHT SO WE CAN CALL DR EDWARD FOR MD TO EXPLAIN THE PROCEDURE. SHE DIDN'T GIVE HER CONSENT YET SINCE DR EDWARD HASN'T EXPLAINED THE PROCEDURE YET. SHE CAN BE CONTACTED TO THIS NUMBER . SHE WILL WAIT FOR DR EDWARD'S CALL. RADHA, CLINICAL EDUCATION CONSULTANT AWARE.
--- NOTE | 2019-01-16 06:15 | NUR ---
GI LAB CRYSTAL CINDY FROM GI LAB CAME. EXPLAINED TO HER THAT CONSENT HAS NOT BEEN SIGNED YET. MICHAEL, PATIENT'S IS EXPECTING DR. EDWARD'S CALL AT 0730. MADE HER AWARE OF THE CONTACT NUMBER TO REACH HER.
[2019-01-16] MEDS ORDERED: BENZOCAINE 20% 0.5mL UD SPRAY MM ONE (06:33)
--- NOTE | 2019-01-16 06:34 | NUR ---
END NOTE AFEBRILE. VS STABLE. NO COMPLAIN OF SOB, PAIN OR N/V THROUGHOUT THE NIGHT. MEDICATED FOR AGITATION ONCE ALL NIGHT. AWAKE, CONFUSED AND AGITATED ALL NIGHT BUT ABLE TO SLEEP FOR FEW HOURS. SEVERAL LOOSE BLOODY STOOL OVERNIGHT. SKIN AND INCONTINENCE CARE PROVIDED. NPO AFTER MIDNIGHT. NEEDS CONSENT FOR EGD FROM PATIENT'S MICHAEL. IV MED INFUSING. CARE AND MONITORING PROVIDED PER PROTOCOL. CALL LIGHT WITHIN REACH. BED ALARM ON AND AT LOWEST POSITION AT ALL TIMES. FALL PRECAUTIONS OBSERVED. NEEDS ATTENDED. KEPT WARM AND COMFORTABLE. SITTER AT THE BEDSIDE.
[2019-01-16] MEDS ORDERED: fentaNYL CITRATE/PF 100 MCG/2 ML AMP ONE (06:36)
[2019-01-16] MEDS ORDERED: MIDAZOLAM HCL 5 MG/5 ML VIAL ONE (06:36)
[2019-01-16 06:41] LABS: BASOPHILS % (AUTO) 0.4 % (0.0-2.0); EOSINOPHILS # (AUTO) 0.2 K/uL (0.0-0.4); EOSINOPHILS % (AUTO) 1.8 % (0.0-4.0); HEMATOCRIT 23.2 % (36-54); HEMOGLOBIN 7.5 g/dL (14.0-18.0); LYMPHOCYTES # (AUTO) 2.1 K/uL (1.0-5.5); LYMPHOCYTES % (AUTO) 24.6 % (20.5-51.5); MEAN CORPUSCULAR HEMOGLOBIN 26 pg (27-31); MEAN CORPUSCULAR HGB CONC 32 % (32-36); MEAN CORPUSCULAR VOLUME 81 fL (79.0-98.0); MONOCYTES % (AUTO) 11.1 % (1.7-9.3); NEUTROPHILS # (AUTO) 5.3 K/uL (1.8-7.7); NEUTROPHILS % (AUTO) 62.1 % (40.0-70.0); PLATELET COUNT (AUTO) 123 K/uL (130-430); RED BLOOD CELL COUNT(AUTO) 2.87 MIL/uL (4.2-6.2); RED CELL DISTRIBUTION WIDTH 27.6 % (9.0-15.0); WHITE BLOOD COUNT (AUTO) 8.6 K/uL (4.8-10.8)
--- NOTE | 2019-01-16 07:30 | NUR ---
PT TAKEN TO GI LAB FOR EGD BY GI STAFF.
[2019-01-16] MEDS ORDERED: BISACODYL 5 MG TABLET.DR (DULCOLAX) PO ONE ×2 (08:15→17:00)
[2019-01-16] MEDS ORDERED: COMMUNICATION ORDER XX ONE (08:15)
--- NOTE | 2019-01-16 08:35 | NUR ---
PT CAME BACK FROM GI LAB S/P EGD, PER REPORT NO BLEEDING, GASTRITIS, NEW ORDER FOR COLONOSCOPY IN AM WITH SEDATION. VITALS ARE 103/73 HR 72, O2 SAT IS 93% ON RA.
[2019-01-16] MEDS: LOSARTAN POTASSIUM 50 MG TABLET (COZAAR) PO SCH (09:00)
[2019-01-16] MEDS: HALOPERIDOL 5 MG TABLET (HALDOL) PO SCH ×4 (09:00→22:27)
[2019-01-16] MEDS: clonazePAM 0.5 MG TABLET PO SCH ×3 (09:00→22:27)
[2019-01-16] MEDS: PREDNISONE 20 MG TABLET PO SCH (09:00)
[2019-01-16] MEDS: DIGOXIN 0.25 MG TABLET PO SCH (09:00)
[2019-01-16] MEDS: DOCUSATE SODIUM 100 MG CAPSULE PO SCH ×2 (09:00→21:00)
[2019-01-16] MEDS: PANTOPRAZOLE SODIUM 40 MG/VIAL (PROTONIX) IVP SCH ×2 (09:31→22:27)
--- NOTE | 2019-01-16 10:30 | NUR ---
RN ROUND Patient currently asleep, moves his arm with tactile stimuli, no moaning or grimacing noted at this time. Sitter at bed side. Call light within the reach. Will continue to monitor.
[2019-01-16] MEDS: QUEtiapine FUMARATE 100 MG TABLET PO SCH ×2 (12:00→17:08)
--- NOTE | 2019-01-16 12:30 | NUR ---
RN ROUND Patient awake, alert and verbally responsive, ate lunch, current diet well tolerated. Denies any pain or discomfort at this time. Sitter at bedside. Call light within the reach.
--- NOTE | 2019-01-16 13:34 | NUR ---
Spool Carrier: follow up TIN STACKER noted an EGD was done earlier today. This pt. is not yet medically cleared for discharge. TIN STACKER will remain available as needed.
--- NOTE | 2019-01-16 14:10 | NUR ---
Dr. Sanchez Round Seen and examined by Dr. Sanchez, will follow-up for any new orders. Per Dr. Sanchez to call to notify for possible blood transfusion, called and spoke with , Shannen, made aware of possible blood transfusion and will update.
[2019-01-16 14:38] LABS: EOSINOPHILS # (AUTO) 0.2 K/uL (0.0-0.4); LYMPHOCYTES # (AUTO) 2.1 K/uL (1.0-5.5); MONOCYTES # (AUTO) 0.6 K/uL (0.0-1.0); WHITE BLOOD COUNT (AUTO) 7.1 K/uL (4.8-10.8)
[2019-01-16 14:54] LABS: BASOPHILS % (AUTO) 0.6 % (0.0-2.0); EOSINOPHILS % (AUTO) 2.4 % (0.0-4.0); HEMATOCRIT 25.4 % (36-54); HEMOGLOBIN 7.9 g/dL (14.0-18.0); LYMPHOCYTES % (AUTO) 29.4 % (20.5-51.5); MEAN CORPUSCULAR HEMOGLOBIN 26 pg (27-31); MEAN CORPUSCULAR HGB CONC 31 % (32-36); MEAN CORPUSCULAR VOLUME 83 fL (79.0-98.0); MONOCYTES % (AUTO) 8.6 % (1.7-9.3); NEUTROPHILS # (AUTO) 4.2 K/uL (1.8-7.7); PLATELET COUNT (AUTO) 121 K/uL (130-430); RED BLOOD CELL COUNT(AUTO) 3.06 MIL/uL (4.2-6.2); RED CELL DISTRIBUTION WIDTH 27.8 % (9.0-15.0)
--- NOTE | 2019-01-16 15:50 | NUR ---
Telephone consent from Called and spoke with , telephone consent given, witnessed by 2 RN.
[2019-01-16] MEDS: GOLYTELY / COLYTE SOLUTION 4 LITERS PO SCH ×2 (16:45→22:31)
--- NOTE | 2019-01-16 19:55 | NUR ---
Initial note: Received report from dayshift RN. Patient is awake in bed, alert and oriented to name only. IV site to right upper chest and right neck are patent and benign. Right neck IV site is receiving 1 unit PRBCs as ordered, no infiltration noted. Bilateral soft wrist restraints in place per MD order, no skin breakdown to wrists noted. Bed is locked in lowest position, side rails raised, bed alarm on. Sitter to remain present at bedside throughout shift. Will continue with plan of care.
[2019-01-16] MEDS: QUEtiapine FUMARATE 200 MG TAB.SR.24H PO SCH ×2 (21:00→22:27)
--- NOTE | 2019-01-16 21:35 | NUR ---
BT complete: Transfusion of 1 unit PRBC complete at this time. No adverse reactions noted. Vital signs WNL. IV site to right neck flushed with 10 ML NS, no infiltration. Safety, fall precautions in place. Sitter at bedside. Will continue to monitor.
--- NOTE | 2019-01-16 23:02 | NUR ---
Med pass: Scheduled Protonix was administered earlier. Patient is unable to receive PO medications and anymore Golytely due to drowsiness. Safety and fall precautions in place. Sitter at bedside. Will continue to monitor.
--- NOTE | 2019-01-16 23:41 | NUR ---
Dr. Ann: Dr. Ann was paged, called back at this time. MD was made aware that patient is drowsy and unable to drink more Golytely. MD was also made aware that patient had drank 1.5 L of Golytely since it was started at 17:00. Received order to insert NG tube for Golytely administration. Order verified by read-back, RN to input.
[2019-01-17 00:14] VITALS: BP_SYST 139
--- NOTE | 2019-01-17 00:52 | NUR ---
NGT insertion: 16fr [place] Sump was inserted to patient's left nostril as ordered by Dr. Ann for Golytely administration. Patient tolerated well. Order for stat chest x-ray for NG tube placement was input per protocol. Safety and fall precautions in place. Sitter present at bedside. Will continue to monitor.
--- NOTE | 2019-01-17 04:25 | NUR ---
Golytely complete: Administration of Golytely 4L completed at this time as ordered by Dr. Ann. NG tube to left nare remains patent and intact, placement verified by auscultation. Patient to now remain NPO for colonoscopy in AM. Safety and fall precautions in place. Sitter at bedside. Will continue to monitor.
[2019-01-17] MEDS: OCTREOTIDE ACETATE 500 MCG in NS 247.5 ML IV SCH (04:30)
[2019-01-17] MEDS: LORazepam 2 MG/ML VIAL IVP PRN ×2 (05:52→13:38)
[2019-01-17] MEDS: LACTULOSE 20 GM/30 ML UDC PO SCH ×3 (06:00→21:05)
[2019-01-17] MEDS: METOPROLOL TARTRATE 50 MG TABLET PO SCH ×3 (06:00→21:06)
[2019-01-17 06:28] LABS: BASOPHILS % (AUTO) 0.4 % (0.0-2.0); EOSINOPHILS # (AUTO) 0.3 K/uL (0.0-0.4); EOSINOPHILS % (AUTO) 2.9 % (0.0-4.0); HEMATOCRIT 25.8 % (36-54); HEMOGLOBIN 8.6 g/dL (14.0-18.0); LYMPHOCYTES # (AUTO) 1.7 K/uL (1.0-5.5); LYMPHOCYTES % (AUTO) 18.9 % (20.5-51.5); MEAN CORPUSCULAR HEMOGLOBIN 27 pg (27-31); MEAN CORPUSCULAR HGB CONC 33 % (32-36); MEAN CORPUSCULAR VOLUME 81 fL (79.0-98.0); MONOCYTES # (AUTO) 0.8 K/uL (0.0-1.0); MONOCYTES % (AUTO) 9.2 % (1.7-9.3); NEUTROPHILS # (AUTO) 6.1 K/uL (1.8-7.7); NEUTROPHILS % (AUTO) 68.6 % (40.0-70.0); PLATELET COUNT (AUTO) 124 K/uL (130-430); RED BLOOD CELL COUNT(AUTO) 3.18 MIL/uL (4.2-6.2); RED CELL DISTRIBUTION WIDTH 27.2 % (9.0-15.0); WHITE BLOOD COUNT (AUTO) 8.8 K/uL (4.8-10.8)
--- NOTE | 2019-01-17 06:42 | NUR ---
Closing note: Patient is resting in bed, no distress noted. Tolerating room air. IV fluids infusing to right EJ as ordered. Patient had a BM earlier with liquid dark red output, no solid pieces noted. Incontinence care provided with CARRI Ruiz. Patient became agitated following incontinence care, PRN Ativan was administered intravenously per MD order. All needs met. Safety, fall precautions in place. Sitter remained at bedside throughout shift. Will endorse care to dayshift RN.
[2019-01-17 06:43] LABS: ALANINE AMINOTRANSFERASE 102 U/L (12-78); ALBUMIN 2.2 g/dL (3.4-4.8); ANION GAP < 3 (5-15); ASPARTATE AMINOTRANSFERASE 43 U/L (10-37); CALCIUM 8.5 mg/dL (8.4-11.0); CHLORIDE 106 mmol/L (98-107); CREATININE 0.59 mg/dL (0.55-1.30); GFR AFRICAN AMERICAN 189 mL/min (>90); GLUCOSE 98 mg/dL (70-99); POTASSIUM 3.8 mmol/L (3.5-5.1); SODIUM SERUM 138 mmol/L (136-145); TOTAL BILIRUBIN 2.9 mg/dL (0.0-1.0); UREA NITROGEN, BLOOD 15 mg/dL (8-21)
[2019-01-17] MEDS ORDERED: SIMETHICONE 40 MG/0.6 ML ML ONE (06:57)
[2019-01-17] MEDS: IPRATROPIUM/ALBUTEROL SULFATE 3 ML AMPUL.NEB (DUONEB) INH SCH ×3 (07:00→19:00)
--- NOTE | 2019-01-17 07:05 | NUR ---
PATIENT IS TRANSFERRED TO GI LAB FOR COLONOSCOPY.
[2019-01-17] MEDS ORDERED: NS 500 ML IV.SOLN IV ONE (07:50)
[2019-01-17] MEDS ORDERED: SEVOFLURANE 15 MIN GAS INH ONE (07:50)
[2019-01-17] MEDS ORDERED: MIDAZOLAM HCL 5 MG/5 ML VIAL IVP ONE (07:50)
[2019-01-17] MEDS ORDERED: PROPOFOL 200MG/ 20ML VIAL (DIPRIVAN) IV ONE (07:50)
[2019-01-17] MEDS ORDERED: fentaNYL CITRATE 250 MCG/5 ML AMP IV ONE (07:50)
[2019-01-17 08:00] VITALS: BP_SYST 107
[2019-01-17] MEDS ORDERED: EPINEPHrine JECT 0.1 MG/ML SYR IVP ONE (09:00)
[2019-01-17] MEDS: PANTOPRAZOLE SODIUM 40 MG/VIAL (PROTONIX) IVP SCH ×2 (09:59→21:06)
[2019-01-17] MEDS: HALOPERIDOL 5 MG TABLET (HALDOL) PO SCH ×3 (10:00→21:06)
[2019-01-17] MEDS: PREDNISONE 20 MG TABLET PO SCH (10:00)
[2019-01-17] MEDS: DOCUSATE SODIUM 100 MG CAPSULE PO SCH ×2 (10:00→21:06)
[2019-01-17] MEDS: LOSARTAN POTASSIUM 50 MG TABLET (COZAAR) PO SCH (10:00)
--- NOTE | 2019-01-17 10:00 | NUR ---
PATIENT HAS BEEN RETURNED FROM GI LAB. REPORT RECEIVED FROM OR NURSE; V/S STABLE.
[2019-01-17] MEDS: clonazePAM 0.5 MG TABLET PO SCH ×2 (10:01→21:05)
[2019-01-17] MEDS: DIGOXIN 0.25 MG TABLET PO SCH (10:38)
--- NOTE | 2019-01-17 11:00 | NUR ---
SS NOTES: VENDING MACHINE COLLECTOR phoned the Call Center (p: [phone]) to update on patient's status. VENDING MACHINE COLLECTOR spoke with Lyn to inform her that patient is not medically cleared and is still on restraints but his weight has gone down to 131 kg and the patient is currently not on a psychiatric hold. [facility] can accommodate patient with this weight. Once patient is medically cleared (off restraints and on hold), SS will update call center to resume possible transfer.
--- NOTE | 2019-01-17 12:10 | NUR ---
PATIENT'S HR AT 130S-140S. BP 94/50. DR. KEARNS IS CALLED
--- NOTE | 2019-01-17 12:41 | NUR ---
HR 120S, BP 110/58 . NO SIGNS OF ACUTE DISTRESS NOTED.
[2019-01-17] MEDS: QUEtiapine FUMARATE 100 MG TABLET PO SCH ×2 (12:58→17:24)
[2019-01-17] MEDS: OCTREOTIDE ACETATE 1,250 MCG in NS 243.75 ML IV SCH ×2 (15:00→18:22)
[2019-01-17 16:00] VITALS: BP_SYST 105
--- NOTE | 2019-01-17 16:00 | NUR ---
patient passed a 500ml of urine
--- NOTE | 2019-01-17 18:20 | NUR ---
patient is having dinner, tolerated without distress.
--- NOTE | 2019-01-17 19:55 | NUR ---
Initial note: Received report from akira RN. Patient is resting in bed, not in any acute distress. Respirations are even, unlabored on room air. IV to right EJ is patent and benign, receiving fluids well. Bilateral soft wrist restraints in place for safety as ordered by MD. Bed is locked in lowest position, bed alarm on, side rails raised. Sitter to remain present at bedside at all times. Will continue with plan of care.
[2019-01-17] MEDS: QUEtiapine FUMARATE 200 MG TAB.SR.24H PO SCH (21:05)
--- NOTE | 2019-01-17 21:19 | NUR ---
Med pass: Medications scheduled for 21:00 and 22:00 administered at this time. PO medications were crushed and administered with chocolate pudding, patient tolerated well. Sitter present at bedside. Will continue to monitor.
--- NOTE | 2019-01-18 00:41 | NUR ---
Rounds: Patient had a BM with blood-tinged, liquid stool. Incontinence care rendered by CARRI Langley and maryse Bailey MT/. Safety and fall precautions in place. Sitter at bedside. Will continue monitoring.
[2019-01-18 00:54] VITALS: BP_SYST 102
[2019-01-18] MEDS: IPRATROPIUM/ALBUTEROL SULFATE 3 ML AMPUL.NEB (DUONEB) INH SCH ×4 (01:00→20:07)
--- NOTE | 2019-01-18 03:03 | NUR ---
Rounds: Patient is asleep. Occasionally becomes restless and starts yelling, but falls asleep after. IV site is patent and intact. Sitter at beside for safety. Will continue to monitor.
[2019-01-18] MEDS: LACTULOSE 20 GM/30 ML UDC PO SCH ×2 (06:00→06:27)
[2019-01-18] MEDS: METOPROLOL TARTRATE 50 MG TABLET PO SCH ×3 (06:27→21:28)
--- NOTE | 2019-01-18 06:43 | NUR ---
Closing note: Patient is resting in bed, no distress noted. Tolerating room air. IV site to right EJ is saline locked, no infiltration noted. Patient had a BM this morning with brown, loose stool with small solids. No bleeding noted. Patient was cleaned and repositioned for comfort. All needs met. Safety and fall precautions observed. Sitter remained at bedside throughout shift. Will endorse care to dayshift RN.
[2019-01-18 07:35] VITALS: BP_SYST 104
--- NOTE | 2019-01-18 07:45 | NUR ---
am notes received pt in bed.resting in bed.easily aroused. a/ox1.res even and unlabored. vitals stable o2 sat 93% on ra. safety and fall precautions in palce. hr 72 on tele. bilateral soft wrist restraint in place for safety as ordered by . . circulation wnl.radial pulses strong. bed in locked position.bed alarm on. sitter at bed side at all times.will continue to monitor
--- NOTE | 2019-01-18 08:00 | NUR ---
md visit seen by dr mccartney.updated with pt's status
--- NOTE | 2019-01-18 08:45 | NUR ---
breakfast pt awake denies any pain sob.pt stated 'I FEEL WONDERFUL" pt ate 70% of his breakfast. not in acute distress. will continue to monitor
[2019-01-18] MEDS: DOCUSATE SODIUM 100 MG CAPSULE PO SCH (09:35)
[2019-01-18] MEDS: PANTOPRAZOLE SODIUM 40 MG/VIAL (PROTONIX) IVP SCH ×2 (09:35→21:28)
[2019-01-18] MEDS: PREDNISONE 20 MG TABLET PO SCH (09:35)
[2019-01-18] MEDS: clonazePAM 0.5 MG TABLET PO SCH ×2 (09:39→21:28)
[2019-01-18] MEDS: HALOPERIDOL 5 MG TABLET (HALDOL) PO SCH ×3 (09:39→21:28)
[2019-01-18] MEDS: DIGOXIN 0.25 MG TABLET PO SCH (09:39)
--- NOTE | 2019-01-18 10:00 | NUR ---
hygiene pt stable . denies any pain or sob.. not in acute distress.seen by dr chu. pt had 1 loose bm . no active bleeding noticed. pt cleaned , linen changed. repositioned with pillow. will continue to mnitor
[2019-01-18] MEDS ORDERED: ASCORBIC ACID 500 MG TABLET PO ONE (10:15)
[2019-01-18] MEDS ORDERED: CHOLECALCIFEROL (VITAMIN D3) 2,000 UNIT TABLET PO ONE (10:15)
[2019-01-18 11:39] VITALS: BP_SYST 111
[2019-01-18] MEDS: QUEtiapine FUMARATE 100 MG TABLET PO SCH ×2 (12:18→17:53)
[2019-01-18] MEDS: IRON SUCROSE COMPLEX 100 MG in NS 100 ML IV SCH (12:19)
--- NOTE | 2019-01-18 12:45 | NUR ---
direct observation pt stable not in acute distress. ate 25% of his lunch. refusing to eat more. due meds given as ordered. vitals stable. not in acute distress. will coninue to monitor
--- NOTE | 2019-01-18 13:00 | NUR ---
pt urinated 700ml yellow color urine in urinal .pt cleaned and kept comfortable . safety and fall precautions maintained. continue on bilateral soft wrist restraints for safety as ordered by md.will continue tomonitor
--- NOTE | 2019-01-18 13:27 | NUR ---
Boot Liner Maker Updated Art at the [facility], . Patient is medically cleared. Art stated patient must be off restraints and on a hold before they can resume looking for placement. Spoke with a SNF resource person who recommended trying [facility] as a place that may take patient on restraints. Phoned. They will not accept a patient with restraints.
--- NOTE | 2019-01-18 15:15 | NUR ---
CONTINUE OF CARE PT RESTING COMFORTBALY. NOT IN ACUTE DISTRESS. SEEN BY DR KEARNS. NEW ORDER RECIVED ENCOURGED DEEP BREATHING AND COUGHING. SAFETY AND FALL PRECAUTIONS MAINTAINED.WILL CONTINUE ONTINUE TO MONITOR
[2019-01-18 16:01] VITALS: BP_SYST 103
--- NOTE | 2019-01-18 17:00 | NUR ---
NOTES PT STABLE OCCASIONALLY BECOME AGITATED AND STARTS YELLING AND GOES BACK TO SLEEP. NOT IN ACUTE DISTRESS. PT HAD 1 LOOSE BM. PT CLEANED . KEPT COMFORTABLE.WILL CONTINUE TO MONITOR
--- NOTE | 2019-01-18 18:46 | NUR ---
CLOSING NOTES PT SLEEPING COMFORTABLY.NOT IN ACUTE DISTRESS. SAFETY AND FALL PRECAUTIONS MAINTAINED.IV SITE RIGHT EJ PATENT. NO S/S OF INFILTRATION NOTED.. SITTER AT BED SIDE. NEED ATTENDED. PT REFUSED FOR SCD AT THIS TIME.KEPT COMFORTABLE. WILL ENDORSE TO CABLE SUPERVISOR RN.
--- NOTE | 2019-01-18 19:30 | NUR ---
OPENING NOTE Patient and bedside report was received from day shift nurse. Patient is sleeping at this time, visible chest rise and fall. No s/s of acute distress. Bilateral soft wrist restraints and sitter present at bedside for safety. Will continue to monitor.
[2019-01-18 20:00] VITALS: BP_SYST 100
[2019-01-18] MEDS: QUEtiapine FUMARATE 200 MG TAB.SR.24H PO SCH (21:30)
--- NOTE | 2019-01-18 22:00 | NUR ---
AGITATED Patient is agitated yelling and stating "stop it mom!" Oriented patient to time and place but is unable due to confusion. Also attempting to remove restraints. Sitter at bedside. Will monitor.
[2019-01-19] VITALS (24 sets, daily range): BP systolic 64–163
--- NOTE | 2019-01-19 | NUR ---
RESTING/OCCASIONALLY YELLS Patient wakes up with verbal stimuli. Occasionally yells, asking for his mom. Also grabbing medical equipment when restless but goes back to sleep with visible chest rise and fall. Safety and fall precautions in place. Sitter at bedside. Will monitor.
[2019-01-19] MEDS: IPRATROPIUM/ALBUTEROL SULFATE 3 ML AMPUL.NEB (DUONEB) INH SCH ×4 (01:00→19:34)
--- NOTE | 2019-01-19 01:45 | NUR ---
TELE MONITOR/BATTERIES CHANGED Fully charged batteries were changed on tele monitor.
--- NOTE | 2019-01-19 02:58 | NUR ---
ROUNDS Patient's eyes closed but intermittently talks out loud asking for "mom" but is in no s/s of acute distress. No s/s of injury related to bilateral soft wrist restraints. Safety and fall precautions in place. Sitter at bedside. Will monitor.
--- NOTE | 2019-01-19 05:30 | NUR ---
DECREASED BLOOD PRESSURE Patient's blood pressure 70-80s systolic/30-40s diastolic. Manual BP cuff utilized as well. Will page to report.
[2019-01-19] MEDS ORDERED: NACL 0.9% 1,000 ML IV STA (05:56)
--- NOTE | 2019-01-19 05:56 | NUR ---
DECREASED BP TRENDS REPORTED TO DR. URMILA Pelaez ordered normal saline bolus x 1 stat. Will carry out.
[2019-01-19] MEDS: METOPROLOL TARTRATE 50 MG TABLET PO SCH ×3 (06:00→21:19)
[2019-01-19 06:36] LABS: BASOPHILS % (AUTO) 0.5 % (0.0-2.0); EOSINOPHILS # (AUTO) 0.1 K/uL (0.0-0.4); EOSINOPHILS % (AUTO) 1.6 % (0.0-4.0); HEMATOCRIT 23.9 % (36-54); HEMOGLOBIN 7.8 g/dL (14.0-18.0); LYMPHOCYTES # (AUTO) 0.6 K/uL (1.0-5.5); LYMPHOCYTES % (AUTO) 11.4 % (20.5-51.5); MEAN CORPUSCULAR HEMOGLOBIN 27 pg (27-31); MEAN CORPUSCULAR HGB CONC 33 % (32-36); MEAN CORPUSCULAR VOLUME 83 fL (79.0-98.0); MONOCYTES # (AUTO) 0.2 K/uL (0.0-1.0); MONOCYTES % (AUTO) 4.8 % (1.7-9.3); NEUTROPHILS # (AUTO) 4.1 K/uL (1.8-7.7); NEUTROPHILS % (AUTO) 81.7 % (40.0-70.0); PLATELET COUNT (AUTO) 105 K/uL (130-430); RED BLOOD CELL COUNT(AUTO) 2.87 MIL/uL (4.2-6.2); RED CELL DISTRIBUTION WIDTH 29.8 % (9.0-15.0)
[2019-01-19 06:38] LABS: INR 1.6 (0.80-1.20); PROTHROMBIN TIME 15.9 SECS (9.5-12.5)
[2019-01-19 06:50] LABS: ALBUMIN 1.9 g/dL (3.4-4.8); CALCIUM 8.1 mg/dL (8.4-11.0); CREATININE 1.23 mg/dL (0.55-1.30); TOTAL BILIRUBIN 3.9 mg/dL (0.0-1.0)
--- NOTE | 2019-01-19 07:25 | NUR ---
opening note patient is resting in bed, sitter is present, got report from noc shift nurse about patient's low BP and getting orders for a bolus, assessment completed, patient is on 6l with simple mask on, has bilateral soft wrist restraints, IV sites in place and flushing well, patient on BP interval checks, will continue to monitor, fall/sfety precutions in place.
--- NOTE | 2019-01-19 07:34 | NUR ---
CLOSING NOTES Patient and bedside report given to day shift nurse, MIRIAM Brady. Patient's current BP 100/42. Sitter at bedside.
[2019-01-19] MEDS ORDERED: PREDNISONE 20 MG TABLET PO SCH (08:00)
[2019-01-19] MEDS: HALOPERIDOL 5 MG TABLET (HALDOL) PO SCH ×3 (09:00→20:10)
[2019-01-19] MEDS: CHOLECALCIFEROL (VITAMIN D3) 2,000 UNIT TABLET PO SCH (09:00)
[2019-01-19] MEDS: clonazePAM 0.5 MG TABLET PO SCH ×2 (09:00→20:10)
[2019-01-19] MEDS: LACTULOSE 20 GM/30 ML UDC PO SCH (09:00)
[2019-01-19] MEDS: PANTOPRAZOLE SODIUM 40 MG/VIAL (PROTONIX) IVP SCH ×2 (09:00→20:12)
[2019-01-19] MEDS: LOSARTAN POTASSIUM 50 MG TABLET (COZAAR) PO SCH (09:00)
[2019-01-19] MEDS: ASCORBIC ACID 500 MG TABLET PO SCH (09:00)
[2019-01-19] MEDS: DIGOXIN 0.25 MG TABLET PO SCH (09:00)
[2019-01-19] MEDS: MULTIVITS,CA,MINERALS/IRON/FA 1 TABLET PO SCH (09:00)
--- NOTE | 2019-01-19 10:00 | NUR ---
paged Dr Pelaez in regards to low BP informed him about the patient's latest vitals signs, new orders were received.
[2019-01-19] MEDS: IPRATROPIUM/ALBUTEROL SULFATE 3 ML AMPUL.NEB (DUONEB) INH PRN (10:04)
--- NOTE | 2019-01-19 10:25 | NUR ---
patient transferred to ICU given report to
--- NOTE | 2019-01-19 10:26 | NUR ---
TO ICU. RECEIVED PT IN ROOM 4, AWAKE, ON O2 VIA MASK, 6L, PT HAS WRISTS RESTRAINTS ON, TRIED TO TAKE OFF HIS MASK, CONNECTED PT TO CONTINUOUS CHIEF STEWARD/STEWARDESS AND PULSE OXIMETER, HEART RATE 116, BP 84/46, WILL CONTINUE TO MONITOR.
--- NOTE | 2019-01-19 10:50 | NUR ---
Spoke with Dr. Benigno riveroarding pts BP in the 80's. He was under the impression that a pumonologist was on the case. Orders left for levophed and consult for Dr. Garcia called to her exchange.
[2019-01-19] MEDS: IRON SUCROSE COMPLEX 100 MG in NS 100 ML IV SCH (10:54)
--- NOTE | 2019-01-19 11:05 | NUR ---
Removal of Sitter Pt on MST with sitter for suicidal precautions and behavioral needs. Pt also has restraints with sitter at bedside on MST. Upon arrival to ICU, per conversation with charge nurse Lucia, she spoke to Dr. Pelaez and the pt no longer needs a sitter, so sitter order stopped. She also indicated that pt is no longer suicidal. Pt screaming and trying to remove his IV and does remove his 02 with desaturations to mid 80's. HR 120's. BP 70's. Will continue to monitor the pt.
[2019-01-19] MEDS ORDERED: NOREPINEPHRINE BITARTRATE 4 MG in D5W 246 ML IV PRN (11:15)
[2019-01-19 11:27] LABS: BASOPHILS % (AUTO) 0.2 % (0.0-2.0); EOSINOPHILS % (AUTO) 0.6 % (0.0-4.0); HEMATOCRIT 26.3 % (36-54); HEMOGLOBIN 8.5 g/dL (14.0-18.0); LYMPHOCYTES # (AUTO) 0.3 K/uL (1.0-5.5); LYMPHOCYTES % (AUTO) 9.6 % (20.5-51.5); MEAN CORPUSCULAR HEMOGLOBIN 27 pg (27-31); MEAN CORPUSCULAR HGB CONC 32 % (32-36); MEAN CORPUSCULAR VOLUME 84 fL (79.0-98.0); MONOCYTES # (AUTO) 0.1 K/uL (0.0-1.0); MONOCYTES % (AUTO) 3.2 % (1.7-9.3); NEUTROPHILS # (AUTO) 2.5 K/uL (1.8-7.7); NEUTROPHILS % (AUTO) 86.4 % (40.0-70.0); PLATELET COUNT (AUTO) 94 K/uL (130-430); RED BLOOD CELL COUNT(AUTO) 3.14 MIL/uL (4.2-6.2); RED CELL DISTRIBUTION WIDTH 29.9 % (9.0-15.0); WHITE BLOOD COUNT (AUTO) 2.9 K/uL (4.8-10.8)
--- NOTE | 2019-01-19 11:30 | NUR ---
IV DRIPS. BLOOD PRESSURE 64/30, INITIATED LEVOPHED DRIP AT 2 MCG/MIN, CONTINUE TO MONITOR.
[2019-01-19] MEDS ORDERED: NOREPINEPHRINE 4 MG/4 ML VIAL IV ONE (11:31)
[2019-01-19] MEDS: NACL 0.9% 1,000 ML IV SCH (11:43)
[2019-01-19 12:01] LABS: INR 1.7 (0.80-1.20); PROTHROMBIN TIME 16.9 SECS (9.5-12.5)
[2019-01-19 12:02] LABS: ALBUMIN 2.2 g/dL (3.4-4.8); CALCIUM 8.1 mg/dL (8.4-11.0); CREATININE 1.44 mg/dL (0.55-1.30); POTASSIUM 4.2 mmol/L (3.5-5.1); TOTAL BILIRUBIN 5.6 mg/dL (0.0-1.0)
--- NOTE | 2019-01-19 12:30 | NUR ---
attempted to call for a third time to inform her about the patient's transfer to ICU, it kept sending me straight to voicemail and that her voicemail is not set up and I cannot leave a message. Addendum: 01/19/19 at 1246 by Caitlyn Lopez RN talked to ICU charge nurse Binta informed me that she already talk to the family.
--- NOTE | 2019-01-19 12:43 | NUR ---
PICC line being inserted with 2 staff members holding him.
--- NOTE | 2019-01-19 13:00 | NUR ---
IV. NEW PICC INSERTED IN RIGHT UPPER ARM, CHEST XRAY DONE FOR CONFIRMATION.
[2019-01-19] MEDS ORDERED: PIPERACILLIN/TAZO 2.25G/DEX-IS 50 ML IV SCH (13:30)
[2019-01-19] MEDS: QUEtiapine FUMARATE 100 MG TABLET PO SCH ×2 (13:31→17:50)
[2019-01-19] MEDS ORDERED: HYDROCORTISONE SOD SUCC 100 MG/2 ML VIAL IVP ONE (13:45)
[2019-01-19] MEDS ORDERED: PIPERACILLIN/TAZOBACTAM 3.375 GM/ D5W 50 ML IV ONE ×2 (14:00)
--- NOTE | 2019-01-19 15:27 | NUR ---
No durbin per Dr. Pelaez. WIll not be able to keep a condom cath in place due to pts agitation and kicking legs over the side of the bed trying to climb out. Pt at high risk for falling and nursing administration aware. Side rails up and restraints in place.
--- NOTE | 2019-01-19 15:42 | NUR ---
LOC. PT CONFUSED, MAKING GROWLING SOUNDS FREQUENTLY, ASSESSED HIS NEEDS, OFFERED A URINAL, PLACED A URINAL CLOSE TO GENITAL, AND URGED HIM TO URINATE, PRIVACY PROVIDED. ONLY SEEN THE BOTTLE TURNED TO THE SIDE OF HIS THIGH AFTERWARD.
--- NOTE | 2019-01-19 17:19 | NUR ---
Nutrition F/U RD reviewed pt's current EMR including diet Hx, physician notes, nursing notes, pertinent labs/meds/procedures, care trends, and care activity. Current Diet Order: soft (low fiber/bland) x1 day Subjective information: Pt was confused at time of RD visit. Per RN, pt refused meals today (breakfast and lunch). New documented wt of 272# -- pt is down 47# since admission date (319#; 12/14/18). 15% wt change within 1 month. Note increased risk for malnutrition. Current PO intake: 70% average x17 meals -- consistently fair/good for past two weeks ESTIMATED NUTRITIONAL REQUIREMENTS CALORIES/DAY: 4629-9835 kcal/day (25-30 kcal/kg IBW for Obesity) PROTEIN/DAY: 71-134 gm/day (.8-1.5 gm/kg IBW for Renal Dz and COPD) FLUID/DAY: per MD (Renal Dz) D: 1. Morbid Obesity r/t inability to access healthier food choices AEB possible consumption of high calorie food and beverage from fast food restaurants and convenient stores, homelessness and BMI 40 kg/m2. *ongoing 2. Inadequate nutrient intake r/t medication intake AEB PO intake not meeting 75% of estimated needs and nursing staff report. *improved 3. Unintentional wt loss related to possible lean muscle mass depletion as evidenced by possible 47#/15% wt change within 1 month. I: 1. Recommend soft (low fiber/bland) diet w/ Ensure Enlive TID (ONS provides 1050 kcal/day, 60 gm protein/day) 2. Encourage pt to increase PO intake. M: Monitor appetite and PO intake w/ goal of pt meeting at least 75% of estimated nutritional needs, labs trending WNL, normal GI function, skin integrity/wt maintenance. E: Moderate Risk; RD to F/U within 3-5 days
--- NOTE | 2019-01-19 17:27 | NUR ---
Dietitian Recommendations * Recommend soft (low fiber/bland) diet w/ Ensure Enlive TID (ONS provides 1050 kcal/day, 60 gm protein/day) * Encourage pt to increase PO intake LP, RD Please refer to Nutrition F/U for details.
[2019-01-19] MEDS: PIPERACILLIN/TAZOBACTAM 3.375 GM/ D5W 50 ML IV SCH ×4 (17:50→23:18)
--- NOTE | 2019-01-19 19:45 | NUR ---
PM ASSESSMENT Pt in bed with eyes open. Receiving breathing tx at this time. Pt seems restless at this time. A&Ox1. VSS with Sinus Tach seen on the monitor. Pt on 6L o2 via simple mask, tolerating well with O2 sats @ 98% and even and unlabored breathing. Pt has a R EJ SL, RFA 20g SL, and MARISELA picc infusing NS @ 10 cc/hr and Levophed @ 2 mcg/min. Bilateral wrist restraints noted. Bed is locked and in lowest position, call light within reach, will cont to monitor.
[2019-01-19] MEDS: QUEtiapine FUMARATE 200 MG TAB.SR.24H PO SCH (20:11)
--- NOTE | 2019-01-19 20:35 | NUR ---
Paged Dr Pelaez exchange paged to inform of critical lab result. Spoke with Laurel.
--- NOTE | 2019-01-19 20:42 | NUR ---
Called Spoke w/ Dr. Pelaez, made aware of pt blood culture results. Order received. Will carry out as ordered.
[2019-01-19] MEDS: HYDROCORTISONE SOD SUCC 100 MG/2 ML VIAL IVP SCH (21:18)
[2019-01-19] MEDS ORDERED: CEFEPIME 1 GM/VIAL (MAXIPIME) ONE (21:43)
[2019-01-19] MEDS ORDERED: CEFEPIME 1 GM in D5W 50 ML IV SCH (22:00)
--- NOTE | 2019-01-19 22:25 | NUR ---
Pt in bed with eyes open, restless and kicking legs at this time. Tried to reorient pt at this time, pt a little calmer when talked to. Will cont to monitor pt.
[2019-01-20] VITALS (24 sets, daily range): BP systolic 97–171
[2019-01-20] MEDS: IPRATROPIUM/ALBUTEROL SULFATE 3 ML AMPUL.NEB (DUONEB) INH SCH ×4 (00:16→19:26)
--- NOTE | 2019-01-20 00:25 | NUR ---
Pt's temperature at this 101.1. Cooling measures started. Will cont to monitor pt.
--- NOTE | 2019-01-20 01:45 | NUR ---
Pt's temperature rechecked at this time, 99.4. Will cont to monitor pt.
--- NOTE | 2019-01-20 02:28 | NUR ---
CONSULTATION PAGED/CALLED Reason for Consultation: SEPSIS Person Who was Notified: CLAIRE Consulting Physician: DR. GARZA Government Affairs Fellow Specialty: ID Ordering Physician: DR. KEARNS
--- NOTE | 2019-01-20 02:45 | NUR ---
CHG CHG bath given to pt at this time. Pt tolerated well but was restless/kicking as he was being cleaned. Will cont to monitor pt.
[2019-01-20] MEDS ORDERED: NOREPINEPHRINE 4 MG/4 ML VIAL IV ONE (04:29)
--- NOTE | 2019-01-20 05:00 | NUR ---
Pt in and out of sleep, restless, kicking and growling when awake. After reorienting and reassuring pt, pt would slowly fall back asleep with visible chest rise and fall. No signs of acute distress or discomfort noted. Bed is locked and in lowest position, call light within reach, will cont to monitor pt.
[2019-01-20] MEDS: HYDROCORTISONE SOD SUCC 100 MG/2 ML VIAL IVP SCH ×3 (05:02→21:14)
[2019-01-20] MEDS: PIPERACILLIN/TAZOBACTAM 3.375 GM/ D5W 50 ML IV SCH ×2 (05:03)
[2019-01-20] MEDS: METOPROLOL TARTRATE 50 MG TABLET PO SCH ×3 (05:04→21:23)
[2019-01-20 06:39] LABS: BASOPHILS % (AUTO) 0.1 % (0.0-2.0); EOSINOPHILS % (AUTO) 0.2 % (0.0-4.0); HEMATOCRIT 23.5 % (36-54); HEMOGLOBIN 7.7 g/dL (14.0-18.0); LYMPHOCYTES # (AUTO) 0.3 K/uL (1.0-5.5); LYMPHOCYTES % (AUTO) 4.5 % (20.5-51.5); MEAN CORPUSCULAR HEMOGLOBIN 27 pg (27-31); MEAN CORPUSCULAR HGB CONC 33 % (32-36); MEAN CORPUSCULAR VOLUME 83 fL (79.0-98.0); MONOCYTES # (AUTO) 0.4 K/uL (0.0-1.0); NEUTROPHILS # (AUTO) 5.4 K/uL (1.8-7.7); NEUTROPHILS % (AUTO) 89.2 % (40.0-70.0); PLATELET COUNT (AUTO) 80 K/uL (130-430); RED BLOOD CELL COUNT(AUTO) 2.83 MIL/uL (4.2-6.2); RED CELL DISTRIBUTION WIDTH 30.4 % (9.0-15.0); WHITE BLOOD COUNT (AUTO) 6.1 K/uL (4.8-10.8)
[2019-01-20 07:11] LABS: CALCIUM 7.7 mg/dL (8.4-11.0); CREATININE 1.07 mg/dL (0.55-1.30); POTASSIUM 3.5 mmol/L (3.5-5.1)
[2019-01-20 07:20] LABS: ALBUMIN 1.9 g/dL (3.4-4.8); PHOSPHORUS 3.6 mg/dL (2.7-4.5); TOTAL BILIRUBIN 6.1 mg/dL (0.0-1.0)
--- NOTE | 2019-01-20 07:20 | NUR ---
ENDORSEMENT Report given to MIRIAM Harrington using SBAR format and pt care was endorsed. No signs of acute distress or discomfort noted.
--- NOTE | 2019-01-20 07:25 | NUR ---
Opening Note Received bedside report from Jagdish PINEDA for continuation of care. Received patient awake and resting in bed, no signs or symptoms of acute distress noted. Bed locked in lowest position, bed alarm on, and call light within reach.
[2019-01-20] MEDS: clonazePAM 0.5 MG TABLET PO SCH ×2 (08:34→21:22)
[2019-01-20] MEDS: ASCORBIC ACID 500 MG TABLET PO SCH (08:34)
[2019-01-20] MEDS: HALOPERIDOL 5 MG TABLET (HALDOL) PO SCH ×3 (08:34→21:23)
[2019-01-20] MEDS: PANTOPRAZOLE SODIUM 40 MG/VIAL (PROTONIX) IVP SCH ×2 (08:34→21:14)
[2019-01-20] MEDS: LOSARTAN POTASSIUM 50 MG TABLET (COZAAR) PO SCH ×2 (08:34→09:00)
[2019-01-20] MEDS: LACTULOSE 20 GM/30 ML UDC PO SCH (08:35)
[2019-01-20] MEDS: CHOLECALCIFEROL (VITAMIN D3) 2,000 UNIT TABLET PO SCH (08:35)
[2019-01-20] MEDS: MULTIVITS,CA,MINERALS/IRON/FA 1 TABLET PO SCH (08:35)
[2019-01-20] MEDS: DIGOXIN 0.25 MG TABLET PO SCH (08:35)
[2019-01-20] MEDS ORDERED: CEFEPIME 1 GM in D5W 50 ML IV SCH (09:00)
--- NOTE | 2019-01-20 09:10 | NUR ---
Dr. Garcia at bedside examining patient. New orders received.
[2019-01-20] MEDS: IRON SUCROSE COMPLEX 100 MG in NS 100 ML IV SCH (10:45)
[2019-01-20] MEDS: NACL 0.9% 1,000 ML IV SCH (11:15)
--- NOTE | 2019-01-20 11:30 | NUR ---
BT INITIATION: Consent signed per significant other agreeing to administration of blood. Blood has been type and crossmatched. Blood sent from blood bank. Information on unit of blood checked against patient wristband at bedside by two nurses. All information matches. Patient or responsible alliance party informed of potential complications associated with blood transfusion. Informed of possible transfusion reaction symptoms. Aware of need to notify nurse at once of itching, shortness of breath, flushing, feeling of impending doom, or other symptoms not previously present. Vital signs taken within 5 minutes prior to initiation of transfusion: Temperature 98.3, HR 127, RR 35, BP 107/68 SpO2 97%. RN will remain with patient for first 15 minutes of transfusion at which time vital signs will be re-assessed.
--- NOTE | 2019-01-20 11:35 | NUR ---
Dr. Ray in to see patient. Made aware of patient status. New orders received.
[2019-01-20] MEDS: LORazepam 2 MG/ML VIAL IVP PRN ×2 (11:58→19:33)
[2019-01-20] MEDS: QUEtiapine FUMARATE 100 MG TABLET PO SCH ×2 (12:00→17:59)
[2019-01-20] MEDS: AMIKACIN SULFATE 750 MG in D5W 100 ML IV SCH (13:12)
--- NOTE | 2019-01-20 14:56 | NUR ---
Dr. Pelaez in to see patient. New orders received.
--- NOTE | 2019-01-20 19:33 | NUR ---
Endorsement Endorsed bedside report to oncoming RN using SBAR approach for continuation of care.
--- NOTE | 2019-01-20 20:00 | NUR ---
AWAKE, CONFUSED, THRASHING LEGS. ATIVAN 2MG IVP GIVEN EARLIER FOR AGITATION. ON O2 AT 6L/MASK. MARISELA PICC LINE DRSG D/I. PARKER SOFT WRIST RESTRAINTS ON FOR SAFETY. ON LEVOPHED DRIP AT 3 MG/MIN, DECREASED TO 2 MCG/MIN.
[2019-01-20] MEDS: QUEtiapine FUMARATE 200 MG TAB.SR.24H PO SCH (21:23)
--- NOTE | 2019-01-20 21:30 | NUR ---
ABLE TO TAKE PO MEDS BY CRUSHING MEDS AND MIXING THEM WITH APPLE SAUCE.
--- NOTE | 2019-01-20 22:30 | NUR ---
CARDIZEM 25 MG IVP GIVEN FOR HR SUSTAINING IN THE 140'S-150'S. TACHYPNEIC, SOME GURGLING NOTED IN THROAT. ORAL CARE GIVEN, SUCTIONED BUCCAL CAVITY. OPENS MOUTH ON COMMAND.
[2019-01-20] MEDS: DILTIAZEM HCL 25 MG/5 ML VIAL IVP PRN (22:33)
[2019-01-21] VITALS (24 sets, daily range): BP systolic 95–134
--- NOTE | 2019-01-21 | NUR ---
SUCTIONED ORALLY AGAIN. BP GOOD, LEVOPHED DECREASED TO 1 MCG/MIN. CIRCULATION CHECK DONE. INCONTINENT OF URINE, CLEANED.
[2019-01-21] MEDS: IPRATROPIUM/ALBUTEROL SULFATE 3 ML AMPUL.NEB (DUONEB) INH SCH ×4 (00:31→19:13)
[2019-01-21] MEDS: AMIKACIN SULFATE 750 MG in D5W 100 ML IV SCH ×2 (01:25→13:25)
--- NOTE | 2019-01-21 02:00 | NUR ---
SOUNDLY ASLEEP. PULSES PALPABLE.
--- NOTE | 2019-01-21 05:00 | NUR ---
SLEPT FOR LONG PERIODS OF TIME. CHG BATH GIVEN. ORAL CARE, JOSE LUIS-CARE, BACK CARE, SKIN CARE RENDERED. PARTIAL LINEN CHANGE DONE. DOES NOT ASSIST WITH TURNING. ARINA PROC WELL.
--- NOTE | 2019-01-21 06:00 | NUR ---
TOOK CRUSHED PO MEDS WITH APPLE SAUCE WITHOUT DIFFICULTY. TACHYPNEIC AT TIMES. NO DISTRESS/SOB NOTED. LEVOPHED LEFT AT 1 MCG/MIN. REMAINS IN GUARDED CONDITION.
[2019-01-21] MEDS: HYDROCORTISONE SOD SUCC 100 MG/2 ML VIAL IVP SCH ×3 (06:02→21:47)
[2019-01-21] MEDS: METOPROLOL TARTRATE 50 MG TABLET PO SCH ×4 (06:03→23:07)
[2019-01-21 07:07] LABS: ALBUMIN 1.7 g/dL (3.4-4.8); CALCIUM 8.2 mg/dL (8.4-11.0); CREATININE 0.65 mg/dL (0.55-1.30); POTASSIUM 3.4 mmol/L (3.5-5.1); TOTAL BILIRUBIN 4.9 mg/dL (0.0-1.0)
--- NOTE | 2019-01-21 07:15 | NUR ---
Opening Note Received bedside report from endorsing RN for continuation of care. Received patient awake and resting in bed, no signs or symptoms of acute distress noted. Bed locked in lowest position, bed alarm on, and call light within reach.
[2019-01-21 07:25] LABS: EOSINOPHILS % (AUTO) 0.1 % (0.0-4.0); HEMATOCRIT 25.2 % (36-54); HEMOGLOBIN 8.3 g/dL (14.0-18.0); LYMPHOCYTES # (AUTO) 0.2 K/uL (1.0-5.5); LYMPHOCYTES % (AUTO) 5.1 % (20.5-51.5); MEAN CORPUSCULAR HEMOGLOBIN 28 pg (27-31); MEAN CORPUSCULAR HGB CONC 33 % (32-36); MEAN CORPUSCULAR VOLUME 84 fL (79.0-98.0); MONOCYTES # (AUTO) 0.4 K/uL (0.0-1.0); MONOCYTES % (AUTO) 8.5 % (1.7-9.3); NEUTROPHILS # (AUTO) 3.7 K/uL (1.8-7.7); NEUTROPHILS % (AUTO) 86.3 % (40.0-70.0); PLATELET COUNT (AUTO) 77 K/uL (130-430); RED BLOOD CELL COUNT(AUTO) 3.02 MIL/uL (4.2-6.2); RED CELL DISTRIBUTION WIDTH 28.4 % (9.0-15.0); WHITE BLOOD COUNT (AUTO) 4.3 K/uL (4.8-10.8)
[2019-01-21] MEDS: LOSARTAN POTASSIUM 50 MG TABLET (COZAAR) PO SCH (09:00)
--- NOTE | 2019-01-21 09:30 | NUR ---
Dr. Garcia at bedside examining patient. New orders received.
[2019-01-21] MEDS ORDERED: POTASSIUM CHLORIDE 40 MEQ in NS 250 ML IV ONE (10:00)
[2019-01-21] MEDS: PANTOPRAZOLE SODIUM 40 MG/VIAL (PROTONIX) IVP SCH ×2 (10:01→21:46)
[2019-01-21] MEDS: clonazePAM 0.5 MG TABLET PO SCH ×2 (10:02→21:00)
[2019-01-21] MEDS: MULTIVITS,CA,MINERALS/IRON/FA 1 TABLET PO SCH (10:02)
[2019-01-21] MEDS: ASCORBIC ACID 500 MG TABLET PO SCH (10:02)
[2019-01-21] MEDS: HALOPERIDOL 5 MG TABLET (HALDOL) PO SCH ×3 (10:02→21:00)
[2019-01-21] MEDS: LACTULOSE 20 GM/30 ML UDC PO SCH (10:02)
[2019-01-21] MEDS: CHOLECALCIFEROL (VITAMIN D3) 2,000 UNIT TABLET PO SCH (10:02)
[2019-01-21] MEDS: DIGOXIN 0.25 MG TABLET PO SCH (10:03)
[2019-01-21] MEDS: IRON SUCROSE COMPLEX 100 MG in NS 100 ML IV SCH (10:11)
[2019-01-21] MEDS: NACL 0.9% 1,000 ML IV SCH (10:15)
--- NOTE | 2019-01-21 10:30 | NUR ---
Dr. Medina at bedside examining patient. No new orders.
[2019-01-21] MEDS ORDERED: POTASSIUM CHLORIDE 20 MEQ/PKT PACKET PO ONE (13:15)
[2019-01-21] MEDS: QUEtiapine FUMARATE 100 MG TABLET PO SCH ×2 (13:26→18:25)
[2019-01-21] MEDS: LORazepam 2 MG/ML VIAL IVP PRN (15:43)
[2019-01-21] MEDS: DILTIAZEM HCL 25 MG/5 ML VIAL IVP PRN (17:35)
--- NOTE | 2019-01-21 19:26 | NUR ---
Endorsement Endorsed bedside report to Anival PINEDA using SBAR approach for continuation of care.
--- NOTE | 2019-01-21 19:50 | NUR ---
PM Assessment Pt in bed drowsy and lethargic. Able to arouse via verbal stimuli, but pt is confused. A-fib shown on monitor. 6L simple mask applied pt saturating in the high 90s. MARISELA PICC Line in place Rt EJ 28g and RAC 20g in place. Sites C/D/I. No s/s of infiltration noted. Soft bilateral wrist restraints applied and SCDs applied. Skin around intact. Bed locked in lowest position, call light in reach, and safety precautions in place. Will continue to monitor.
[2019-01-21] MEDS: QUEtiapine FUMARATE 200 MG TAB.SR.24H PO SCH (21:00)
--- NOTE | 2019-01-21 22:50 | NUR ---
Lopressor Medication Pt unable to swallow medication at this time. Pt remains drowsy. Medication already crushed and disposed of properly in medication destroyer. BP stable, no hypertension at this time. Will continue to monitor.
[2019-01-22] VITALS (24 sets, daily range): BP systolic 11–142
[2019-01-22] MEDS: IPRATROPIUM/ALBUTEROL SULFATE 3 ML AMPUL.NEB (DUONEB) INH SCH ×4 (01:06→19:29)
[2019-01-22] MEDS: AMIKACIN SULFATE 750 MG in D5W 100 ML IV SCH ×2 (01:21→13:47)
--- NOTE | 2019-01-22 01:30 | NUR ---
RN Rounds Pt in bed asleep. More arousable. VSS. NO s/s of distress noted. Will continue to monitor.
--- NOTE | 2019-01-22 04:26 | NUR ---
RN Rounds Pt in bed asleep. No s/s of distress noted. Will continue to monitor.
[2019-01-22] MEDS: HYDROCORTISONE SOD SUCC 100 MG/2 ML VIAL IVP SCH ×2 (05:41→20:14)
[2019-01-22] MEDS: DILTIAZEM HCL 25 MG/5 ML VIAL IVP PRN ×3 (05:42→17:15)
[2019-01-22] MEDS: METOPROLOL TARTRATE 50 MG TABLET PO SCH ×3 (06:00→22:00)
[2019-01-22 06:09] LABS: ALANINE AMINOTRANSFERASE 43 U/L (12-78); ALBUMIN 1.8 g/dL (3.4-4.8); ASPARTATE AMINOTRANSFERASE 14 U/L (10-37); CALCIUM 9.1 mg/dL (8.4-11.0); CHLORIDE 111 mmol/L (98-107); CREATININE 0.59 mg/dL (0.55-1.30); GLUCOSE 131 mg/dL (70-99); SODIUM SERUM 142 mmol/L (136-145); TOTAL BILIRUBIN 3.5 mg/dL (0.0-1.0); UREA NITROGEN, BLOOD 23 mg/dL (8-21)
[2019-01-22 06:12] LABS: BASOPHILS % (AUTO) 0.1 % (0.0-2.0); EOSINOPHILS % (AUTO) 0.6 % (0.0-4.0); HEMATOCRIT 25.7 % (36-54); HEMOGLOBIN 8.6 g/dL (14.0-18.0); LYMPHOCYTES # (AUTO) 0.4 K/uL (1.0-5.5); LYMPHOCYTES % (AUTO) 13.2 % (20.5-51.5); MEAN CORPUSCULAR HEMOGLOBIN 28 pg (27-31); MEAN CORPUSCULAR HGB CONC 33 % (32-36); MEAN CORPUSCULAR VOLUME 84 fL (79.0-98.0); MONOCYTES # (AUTO) 0.3 K/uL (0.0-1.0); MONOCYTES % (AUTO) 9.4 % (1.7-9.3); NEUTROPHILS # (AUTO) 2.3 K/uL (1.8-7.7); PLATELET COUNT (AUTO) 90 K/uL (130-430); RED BLOOD CELL COUNT(AUTO) 3.07 MIL/uL (4.2-6.2); RED CELL DISTRIBUTION WIDTH 27.9 % (9.0-15.0)
[2019-01-22 06:13] LABS: ANION GAP < 3 (5-15); GFR AFRICAN AMERICAN 189 mL/min (>90)
[2019-01-22 06:26] LABS: NEUTROPHILS % (AUTO) 76.7 % (40.0-70.0)
--- NOTE | 2019-01-22 06:27 | NUR ---
Closing Note Pt in bed asleep. Pt remains drowsy. Alert to verbal stimuli, but remains confused. A-fib on the monitor, BP stable. Lopressor held d/t Pt being drowsy. Unsure if Pt is able to swallow properly at this time. BP is stable, 109/58. Cardizem PRN given for high HR at 0600. No s/s of distress noted. MARISELA PICC Line, Rt EJ 18g and RAC [address]g [address]. Sites C/D/I, no s/s of infiltration noted. No urine or BM this shift. SCDs in place. Bed locked in lowest position, call light in reach, and safety precautions in place. Will endorse to oncoming RN.
--- NOTE | 2019-01-22 07:20 | NUR ---
Opening Note: Received plan of care via sbar from endorsing nurse Anival PINEDA. Completed patient rounds.
--- NOTE | 2019-01-22 07:22 | NUR ---
Endorsement Report given to RN at bedside via SBAR approach.
--- NOTE | 2019-01-22 08:15 | NUR ---
Dr. Medina at bedside. Dr. Medina mentioned he may change fluid rate and to make effort to feed patient.
[2019-01-22] MEDS: HALOPERIDOL 5 MG TABLET (HALDOL) PO SCH ×3 (09:00→20:14)
[2019-01-22] MEDS: LOSARTAN POTASSIUM 50 MG TABLET (COZAAR) PO SCH (09:00)
[2019-01-22] MEDS: PANTOPRAZOLE SODIUM 40 MG/VIAL (PROTONIX) IVP SCH ×2 (10:19→20:13)
[2019-01-22] MEDS: DIGOXIN 0.25 MG TABLET PO SCH (10:27)
[2019-01-22] MEDS: clonazePAM 0.5 MG TABLET PO SCH ×2 (10:27→20:14)
[2019-01-22] MEDS: LACTULOSE 20 GM/30 ML UDC PO SCH (10:28)
--- NOTE | 2019-01-22 11:00 | NUR ---
Dr. Garcia at bedside. Received request to try an oximizer or NC.
[2019-01-22] MEDS: NACL 0.9% 1,000 ML IV SCH (11:15)
--- NOTE | 2019-01-22 11:15 | NUR ---
RT NOTES- 2L N/C PLACED PT ON 2L N/C. PT MORE AWAKE. TOLERATING WELL. MIRIAM MORENO AT BEDSIDE. WILL CONTINUE MONITORING.
[2019-01-22] MEDS: MULTIVITS,CA,MINERALS/IRON/FA 1 TABLET PO SCH (12:42)
[2019-01-22] MEDS: QUEtiapine FUMARATE 100 MG TABLET PO SCH ×2 (12:42→17:53)
[2019-01-22] MEDS: ASCORBIC ACID 500 MG TABLET PO SCH (12:42)
[2019-01-22] MEDS: CHOLECALCIFEROL (VITAMIN D3) 2,000 UNIT TABLET PO SCH (12:42)
--- NOTE | 2019-01-22 14:51 | NUR ---
Community Dietitian Note Observed patient in ICU. Patient was resting and is still in restraints and remains confused. 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 There are no psych or SNF facilities that will accept patient on restraints. Phoned but no answer and no voicemail.
[2019-01-22] MEDS: LORazepam 2 MG/ML VIAL IVP PRN (16:26)
[2019-01-22] MEDS: cefTRIAXone 1 GM in D5W 50 ML IV SCH (17:53)
[2019-01-22] MEDS: METOPROLOL TARTRATE 5 MG/5 ML VIAL IVP PRN (18:37)
--- NOTE | 2019-01-22 19:21 | NUR ---
Closing Note Provided plan of care via sbar to endorsing nurse Jagdish PINEDA. Completed patient round.
--- NOTE | 2019-01-22 19:30 | NUR ---
PM Assessment Pt in bed with eyes closed resting comfortably. Pt lethargic at this time but easily arousable to verbal stimuli. Pt still confused. VSS with controlled afib seen on the monitor. Pt on 2L O2 via NC, tolerating well with O2 sats @ 100% and even and unlabored breathing. Pt has a MARISELA picc line infusing NS @ 10 cc/hr, dressing c/d/i. Soft bilateral wrists restraints noted. Bilateral SCD's noted to pt's lower extremities. Bed is locked and in lowest position, call light within reach, will cont to monitor.
[2019-01-22] MEDS: QUEtiapine FUMARATE 200 MG TAB.SR.24H PO SCH (20:14)
--- NOTE | 2019-01-22 22:00 | NUR ---
Pt in bed with eyes closed resting comfortably. Easily arousable to verbal stimuli. No signs of acute distress or discomfort noted. Will cont to monitor pt.
[2019-01-23] VITALS (21 sets, daily range): BP systolic 94–137
--- NOTE | 2019-01-23 | NUR ---
Pt in bed with eyes closed resting comfortably. No signs of acute distress or discomfort noted. VSS with controlled afib seen on the monitor. Bed is locked and in lowest position, call light within reach, will cont to monitor.
[2019-01-23] MEDS: IPRATROPIUM/ALBUTEROL SULFATE 3 ML AMPUL.NEB (DUONEB) INH SCH ×4 (00:21→20:58)
--- NOTE | 2019-01-23 03:30 | NUR ---
Resting comfortably in bed, no signs of acute distress or discomfort noted. Pt on 2L O2 via NC, tolerating well with O2 sats @ 99% and even and unlabored breathing. Bed is locked and in lowest position, call light within reach, will cont to monitor pt.
--- NOTE | 2019-01-23 05:10 | NUR ---
CHG CHG bath given to pt at this time. No signs of acute distress or discomfort noted. Pt tolerated well, will cont to monitor.
[2019-01-23 05:59] LABS: BASOPHILS % (AUTO) 0.2 % (0.0-2.0); EOSINOPHILS # (AUTO) 0.1 K/uL (0.0-0.4); EOSINOPHILS % (AUTO) 3.7 % (0.0-4.0); HEMATOCRIT 25.5 % (36-54); HEMOGLOBIN 8.1 g/dL (14.0-18.0); LYMPHOCYTES # (AUTO) 0.6 K/uL (1.0-5.5); MEAN CORPUSCULAR HEMOGLOBIN 27 pg (27-31); MEAN CORPUSCULAR HGB CONC 32 % (32-36); MEAN CORPUSCULAR VOLUME 84 fL (79.0-98.0); MONOCYTES # (AUTO) 0.4 K/uL (0.0-1.0); MONOCYTES % (AUTO) 14.3 % (1.7-9.3); NEUTROPHILS # (AUTO) 1.6 K/uL (1.8-7.7); NEUTROPHILS % (AUTO) 58.8 % (40.0-70.0); PLATELET COUNT (AUTO) 89 K/uL (130-430); RED BLOOD CELL COUNT(AUTO) 3.02 MIL/uL (4.2-6.2); RED CELL DISTRIBUTION WIDTH 27.8 % (9.0-15.0); WHITE BLOOD COUNT (AUTO) 2.8 K/uL (4.8-10.8)
[2019-01-23 06:20] LABS: ALANINE AMINOTRANSFERASE 44 U/L (12-78); ALBUMIN 1.7 g/dL (3.4-4.8); CALCIUM 9.1 mg/dL (8.4-11.0); CHLORIDE 113 mmol/L (98-107); CREATININE 0.53 mg/dL (0.55-1.30); GLUCOSE 107 mg/dL (70-99); TOTAL BILIRUBIN 2.7 mg/dL (0.0-1.0); UREA NITROGEN, BLOOD 30 mg/dL (8-21)
[2019-01-23] MEDS: METOPROLOL TARTRATE 50 MG TABLET PO SCH ×3 (06:36→22:01)
[2019-01-23 07:03] LABS: POTASSIUM 3.7 mmol/L (3.5-5.1); SODIUM SERUM 145 mmol/L (136-145)
[2019-01-23 07:12] LABS: ANION GAP < 3 (5-15); GFR AFRICAN AMERICAN 213 mL/min (>90)
[2019-01-23 07:13] LABS: ASPARTATE AMINOTRANSFERASE 22 U/L (10-37)
--- NOTE | 2019-01-23 07:20 | NUR ---
ENDORSEMENT Report given to MIRIAM Cook using SBAR format and pt care was endorsed. No signs of acute distress or discomfort noted.
--- NOTE | 2019-01-23 07:40 | NUR ---
AM NOTES: Pt in bed with eyes closed resting comfortably. Pt lethargic at this time but arousal to light stimuli. Pt still confused. VSS with controlled afib 90-100's seen on the monitor. Pt on 2L O2 via NC, tolerating well with O2 Sats @ 100% and even and nonlabored breathing. Pt has a MARISELA PICC line with good blood return. arm circumference 38 cm.infusing NS @ 10 cc/hr, dressing c/d/i. Soft bilateral wrists restraints noted. Bilateral SCD's noted to pt's lower extremities. Bed is locked and in lowest position, call light within reach, will cont to monitor.
--- NOTE | 2019-01-23 08:40 | NUR ---
CARDIAC CONSULT: seen by Dr. Medina at bedside. new order received.
[2019-01-23] MEDS: PANTOPRAZOLE SODIUM 40 MG/VIAL (PROTONIX) IVP SCH ×2 (08:46→22:03)
[2019-01-23] MEDS: HYDROCORTISONE SOD SUCC 100 MG/2 ML VIAL IVP SCH ×2 (08:46→22:04)
[2019-01-23] MEDS: LOSARTAN POTASSIUM 50 MG TABLET (COZAAR) PO SCH (08:49)
[2019-01-23] MEDS: DIGOXIN 0.25 MG TABLET PO SCH (09:00)
--- NOTE | 2019-01-23 10:10 | NUR ---
MD ROUNDS: seen by Dr. Garcia at the bedside.
[2019-01-23] MEDS: MULTIVITS,CA,MINERALS/IRON/FA 1 TABLET PO SCH (10:55)
[2019-01-23] MEDS: ASCORBIC ACID 500 MG TABLET PO SCH (10:56)
[2019-01-23] MEDS: CHOLECALCIFEROL (VITAMIN D3) 2,000 UNIT TABLET PO SCH (10:56)
[2019-01-23] MEDS: LACTULOSE 20 GM/30 ML UDC PO SCH (10:57)
[2019-01-23] MEDS: QUEtiapine FUMARATE 100 MG TABLET PO SCH ×2 (12:00→18:10)
[2019-01-23] MEDS: NACL 0.9% 1,000 ML IV SCH (12:07)
--- NOTE | 2019-01-23 13:30 | NUR ---
notes: assisted patient during lunch meal. 25% consumed. keep hob elevated to prevent aspiration episode of cough noted.patient voided incontinent. sponge bath, oral care, maliha care provided, turn and reposition with pillow support. restraint discontinued. pt is cooperative, quiet. not trying to pulls tubes. frequent reorientation needed. bed is low and lock position. call light within reach. will closely monitor.
--- NOTE | 2019-01-23 14:04 | NUR ---
ICU Opening Note Received bedside report from Joyce RN for continuation of care. Received patient resting in bed, arousable to voice and touch, no signs or symptoms of acute distress noted. Patient denies any pain. Bed locked in lowest position, bed alarm on, and call light within reach.
--- NOTE | 2019-01-23 16:15 | NUR ---
Patient resting in bed, arousable to voice and touch. Patient denies any pain. No signs or symptoms of acute distress noted. Bed locked in lowest position, bed alarm on, and call light within reach.
--- NOTE | 2019-01-23 16:18 | NUR ---
Social Servics: Get update re. pt. PROTECTIVE SERVICES CASE WORKER called ICU and spoke to Rn who stated pt. is still in ICU and has not been downgraded. This was mentioned in the mornings bed huddle. Pt. is currently off restraints because he is not active and not alert. Rn can still use restraints if they are needed. Rn also stated Pt. knows his name and can follow simple commands however he becomes agitated and will kick and hit his bed. Additionally when pt. becomes agitated, he will start whining. PROTECTIVE SERVICES CASE WORKER thanked Rn. and will remain available as needed.
[2019-01-23] MEDS: cefTRIAXone 1 GM in D5W 50 ML IV SCH (18:10)
[2019-01-23] MEDS: METOPROLOL TARTRATE 5 MG/5 ML VIAL IVP PRN (18:10)
--- NOTE | 2019-01-23 18:50 | NUR ---
Transfer to Telemetry Patient transferred to telemetry unit room 116-B on continuous radiation monitor and oxygen using ACLS protocol. No signs or symptoms of acute distress noted. Bed locked in lowest position, bed alarm on, and call light within reach. Endorsed bedside report to Tawanna PINEDA using SBAR approach for continuation of care.
--- NOTE | 2019-01-23 19:30 | NUR ---
ROUNDS PATIENT RESTING COMFORTABLY IN BED, NOT IN DISTRESS, VITALS STABLE. NO SIGNS OF ANY PAIN AND DISCOMFORT NOTED. ASSESSMENT DONE AND DOCUMENTED. SEE FLOWSHEET. NEEDS ATTENDED TO. SAFETY AND FALL PRECAUTION MEASURES IN PLACED. SITTER AT THE BEDSIDE FOR SAFETY. WILL CONTINUE TO MONITOR.
[2019-01-23] MEDS: DILTIAZEM HCL 25 MG/5 ML VIAL IVP PRN (20:17)
[2019-01-23] MEDS: clonazePAM 0.5 MG TABLET PO SCH (22:02)
[2019-01-23] MEDS: QUEtiapine FUMARATE 200 MG TAB.SR.24H PO SCH (22:03)
[2019-01-23] MEDS: HALOPERIDOL 5 MG TABLET (HALDOL) PO SCH (22:17)
--- NOTE | 2019-01-24 00:12 | NUR ---
PATIENT RESTING: Patient resting quietly. No acute distress noted. Vital signs within normal range.
[2019-01-24] MEDS: IPRATROPIUM/ALBUTEROL SULFATE 3 ML AMPUL.NEB (DUONEB) INH SCH ×4 (01:29→19:57)
[2019-01-24] MEDS: METOPROLOL TARTRATE 50 MG TABLET PO SCH ×3 (05:40→22:11)
[2019-01-24 06:37] LABS: BASOPHILS % (AUTO) 0.3 % (0.0-2.0); EOSINOPHILS # (AUTO) 0.1 K/uL (0.0-0.4); EOSINOPHILS % (AUTO) 2.4 % (0.0-4.0); HEMATOCRIT 24.9 % (36-54); HEMOGLOBIN 8.1 g/dL (14.0-18.0); LYMPHOCYTES # (AUTO) 0.9 K/uL (1.0-5.5); LYMPHOCYTES % (AUTO) 20.5 % (20.5-51.5); MEAN CORPUSCULAR HEMOGLOBIN 27 pg (27-31); MEAN CORPUSCULAR HGB CONC 33 % (32-36); MEAN CORPUSCULAR VOLUME 84 fL (79.0-98.0); MONOCYTES # (AUTO) 0.2 K/uL (0.0-1.0); MONOCYTES % (AUTO) 4.4 % (1.7-9.3); NEUTROPHILS % (AUTO) 72.4 % (40.0-70.0); PLATELET COUNT (AUTO) 116 K/uL (130-430); RED BLOOD CELL COUNT(AUTO) 2.98 MIL/uL (4.2-6.2); RED CELL DISTRIBUTION WIDTH 28.2 % (9.0-15.0); WHITE BLOOD COUNT (AUTO) 4.2 K/uL (4.8-10.8)
[2019-01-24 06:56] LABS: CALCIUM 8.8 mg/dL (8.4-11.0); CREATININE 0.6 mg/dL (0.55-1.30); POTASSIUM 3.9 mmol/L (3.5-5.1)
--- NOTE | 2019-01-24 07:30 | NUR ---
Opening Notes Patient received lying comfortably in his bed. Sitter at bedside, denies any pain or discomfort at this time. PICC line remain to be intact and patent, IVF infusing well. Attended to needs and anticipated. Call light within the reach. Will continue to monitor.
--- NOTE | 2019-01-24 09:30 | NUR ---
Dr. Medina Round seen and examined by Dr. Medina, will follow-up for any new orders.
--- NOTE | 2019-01-24 09:40 | NUR ---
Medication administration Patient educated on drug usage and its potential side effects, all due medications given as ordered, well tolerated. Sitter at bedside. Call light within the reach. Fall precaution observed.
[2019-01-24] MEDS: clonazePAM 0.5 MG TABLET PO SCH ×2 (09:45→22:00)
[2019-01-24] MEDS: ASCORBIC ACID 500 MG TABLET PO SCH (09:45)
[2019-01-24] MEDS: CHOLECALCIFEROL (VITAMIN D3) 2,000 UNIT TABLET PO SCH (09:45)
[2019-01-24] MEDS: HALOPERIDOL 5 MG TABLET (HALDOL) PO SCH ×2 (09:46→22:05)
[2019-01-24] MEDS: LOSARTAN POTASSIUM 50 MG TABLET (COZAAR) PO SCH (09:46)
[2019-01-24] MEDS: DIGOXIN 0.25 MG TABLET PO SCH (09:47)
[2019-01-24] MEDS: LACTULOSE 20 GM/30 ML UDC PO SCH (09:47)
[2019-01-24] MEDS: HYDROCORTISONE SOD SUCC 100 MG/2 ML VIAL IVP SCH ×2 (09:47→22:01)
[2019-01-24] MEDS: PANTOPRAZOLE SODIUM 40 MG/VIAL (PROTONIX) IVP SCH ×2 (09:47→22:00)
[2019-01-24] MEDS: MULTIVITS,CA,MINERALS/IRON/FA 1 TABLET PO SCH (09:52)
[2019-01-24] MEDS: NACL 0.9% 1,000 ML IV SCH (11:15)
--- NOTE | 2019-01-24 11:30 | NUR ---
RN ROUND Patient remain to be alert, awake and verbally responsive. Denies any pain or discomfort at this time. IVF infusing well. Sitter at bedside. Call light within the reach. Will continue to monitor.
[2019-01-24] MEDS: QUEtiapine FUMARATE 100 MG TABLET PO SCH ×2 (12:32→17:50)
[2019-01-24] MEDS: METOPROLOL TARTRATE 5 MG/5 ML VIAL IVP PRN (12:58)
--- NOTE | 2019-01-24 13:00 | NUR ---
Lopressor IVP PRN Given Patient noted with HR at 127, lopressor IVP given as ordered, well tolerated. Patient remain to be alert, awake and verbally responsive. With episodes of confusion noted. Denies any pain or discomfort at this time. Call light within the reach. Will continue to monitor.
[2019-01-24 13:35] VITALS: BP_SYST 122
[2019-01-24] MEDS: LORazepam 2 MG/ML VIAL IVP PRN (14:08)
--- NOTE | 2019-01-24 14:10 | NUR ---
Ativan patient is attempting to climb out of bed and pull on lines, reoriented the patient, administered IV Ativan per MD orders, PICC line is intact and infusing well, continuing to monitor, bed in lowest position, three side rails up, call light within reach, fall and aspiration precautions in place, sitter remains at bedside.
--- NOTE | 2019-01-24 14:39 | NUR ---
Nutrition F/U RD reviewed pt's current EMR including diet Hx, physician notes, nursing notes, pertinent labs/meds/procedures, care trends, and care activity. Admission Dx: chest pain PMH: chronic atr fibr, CHF, COPD, obesity, chronic nicotine dependence per physician notes Current Diet Order: soft (low fiber/bland) x4 days Subjective information: Pt was confused at time of RD visit. OPERATING ROOM RN present stated that pt has been eating fairly well today -- reported that pt ate 1/2 of oatmeal and eggs, as well as bread w/ milk; and 1/2 meat, a bit of quinoa, and 1/2 soup at lunch. Pt has been drinking 100% of Ensure Enlive ONS. Unable to take pt's wt as bedscale was not working. RD encouraged OPERATING ROOM RN to continue to offer pt meal tray items to encourage consistently good PO intakes; OPERATING ROOM RN acknowledged. Ht: 75"/6'2" Wt: 272#/123 kg BMI: 34 kg/m2 (obesity class I) IBW: 196#/89 kg %IBW: 138% Adj IBW (obesity): 215#/98 kg Current PO intake: 28% average x11 meals -- poor ESTIMATED NUTRITIONAL REQUIREMENTS NEW CALORIES/DAY: 1556-5971 kcal/day (MSJ x 1.2-1.5 for obesity, COPD) NEW PROTEIN/DAY: 127-196 gm/day (1.3-2 gm/kg Adj IBW for obesity, COPD) NEW FLUID/DAY: Per physician d/t Hx of CHF D: 1. Morbid Obesity r/t inability to access healthier food choices AEB possible consumption of high calorie food and beverage from fast food restaurants and convenient stores, homelessness and BMI 40 kg/m2. *no longer applicable 2. Inadequate nutrient intake r/t medication intake AEB PO intake not meeting 75% of estimated needs and nursing staff report. *ongoing 3. Unintentional wt loss related to possible lean muscle mass depletion as evidenced by possible 47#/15% wt change within 1 month. *ongoing I: 1. Recommend continuing soft (low fiber/bland) diet w/ Ensure Enlive TID (ONS provides 1050 kcal/day, 60 gm protein/day) 2. Encourage pt to increase PO intake. M: Monitor appetite and PO intake w/ goal of pt meeting at least 75% of estimated nutritional needs, labs trending WNL, normal GI function, skin integrity/wt maintenance. E: High Risk; RD to F/U within 2-3days
--- NOTE | 2019-01-24 14:52 | NUR ---
Dietitian Recommendations * Recommend continuing soft (low fiber/bland) diet w/ Ensure Enlive TID (ONS provides 1050 kcal/day, 60 gm protein/day) * Encourage pt to increase PO intake. LP, RD Please refer to Nutrition F/U for details.
--- NOTE | 2019-01-24 16:05 | NUR ---
Dr. Escobedo Rounds Seen and examined by Dr. Escobedo, will follow-up for any new orders. Addendum: 01/24/19 at 1607 by Yosi Guevara RN came at 1140
[2019-01-24] MEDS: DILTIAZEM HCL 25 MG/5 ML VIAL IVP PRN (16:52)
[2019-01-24] MEDS: IPRATROPIUM/ALBUTEROL SULFATE 3 ML AMPUL.NEB (DUONEB) INH PRN (16:52)
--- NOTE | 2019-01-24 16:52 | NUR ---
Cardizem IVP PRN given Patient's HR noted at 132, cardizem IVP given as needed, well tolerated. Denies any pain or discomfort at this time. Remain to be alert, awake and verbally responsive. Call light within easy reach.
[2019-01-24 17:16] VITALS: BP_SYST 144
--- NOTE | 2019-01-24 17:40 | NUR ---
Cardizem Effective Cardizem effective, HR went down to 108. Remain to be alert, awake and verbally responsive. Call light within the reach. Will continue to monitor.
[2019-01-24] MEDS: cefTRIAXone 1 GM in D5W 50 ML IV SCH (17:43)
--- NOTE | 2019-01-24 19:30 | NUR ---
opening note Received patient awake, resting in bed, no s/sx of distress. He was moving his arms, not combative. PIIC line to MARISELA. Bed is locked to lowest position, bed alarm on, side rails up 3x and direct observer with patient in room.
--- NOTE | 2019-01-24 19:34 | NUR ---
closing notes Patient remain to be alert, awake and verbally responsive. On 02 at 2lpm via nc. respiration even and unlabored. Denies any pain or discomfort at this time. IVF infusing well. Call light within the reach. Will endorse to next shift.
[2019-01-24 20:00] VITALS: BP_SYST 113
--- NOTE | 2019-01-24 20:35 | NUR ---
Patient care Patient soiled and assisted nurse branch assistant, provided maliha-care and clean pad. Patient positioned for comfort.
[2019-01-24] MEDS: QUEtiapine FUMARATE 200 MG TAB.SR.24H PO SCH (22:06)
[2019-01-25] VITALS (10 sets, daily range): BP systolic 110–155
[2019-01-25] MEDS: IPRATROPIUM/ALBUTEROL SULFATE 3 ML AMPUL.NEB (DUONEB) INH SCH ×4 (01:45→19:43)
--- NOTE | 2019-01-25 02:45 | NUR ---
Patient care Patient soiled and assisted nurse lab assistant, provided maliha-care and clean pad. Patient positioned for comfort.
[2019-01-25] MEDS: LORazepam 2 MG/ML VIAL IVP PRN ×3 (03:47→16:50)
--- NOTE | 2019-01-25 03:58 | NUR ---
Agitated Patient is awake, toss'n'turning and yelling "ahh", "mama", not aggressive or combative. He was given Ativan for agitation as ordered. Assisted nurse team assistant w/ maliha-care, provided clean pad. Observer is in room with patient.
[2019-01-25] MEDS: NACL 0.9% 1,000 ML IV SCH (05:31)
[2019-01-25] MEDS: METOPROLOL TARTRATE 50 MG TABLET PO SCH ×3 (05:34→21:51)
--- NOTE | 2019-01-25 05:37 | NUR ---
Medication Metoprolol given as ordered, B/P 120/75 and HR 113. Resting calmly and cooperative.
[2019-01-25 05:42] LABS: ALBUMIN 1.6 g/dL (3.4-4.8); CALCIUM 8.3 mg/dL (8.4-11.0); CREATININE 0.59 mg/dL (0.55-1.30); POTASSIUM 3.8 mmol/L (3.5-5.1); TOTAL BILIRUBIN 1.8 mg/dL (0.0-1.0)
[2019-01-25] MEDS: DILTIAZEM HCL 25 MG/5 ML VIAL IVP PRN (05:59)
--- NOTE | 2019-01-25 06:03 | NUR ---
Cardizem - HR 134 mathematical technician reports HR in 130's, Cardizem IVP given as ordered. Monitor indicates HR decreased to 98. Will continue to monitor.
[2019-01-25 06:05] LABS: BASOPHILS % (AUTO) 0.4 % (0.0-2.0); EOSINOPHILS # (AUTO) 0.3 K/uL (0.0-0.4); EOSINOPHILS % (AUTO) 5.1 % (0.0-4.0); HEMATOCRIT 23.6 % (36-54); HEMOGLOBIN 7.8 g/dL (14.0-18.0); LYMPHOCYTES # (AUTO) 0.9 K/uL (1.0-5.5); LYMPHOCYTES % (AUTO) 16.1 % (20.5-51.5); MEAN CORPUSCULAR HEMOGLOBIN 28 pg (27-31); MEAN CORPUSCULAR HGB CONC 33 % (32-36); MEAN CORPUSCULAR VOLUME 84 fL (79.0-98.0); MONOCYTES # (AUTO) 0.4 K/uL (0.0-1.0); MONOCYTES % (AUTO) 7.4 % (1.7-9.3); NEUTROPHILS # (AUTO) 4.1 K/uL (1.8-7.7); PLATELET COUNT (AUTO) 147 K/uL (130-430); RED BLOOD CELL COUNT(AUTO) 2.82 MIL/uL (4.2-6.2); RED CELL DISTRIBUTION WIDTH 27.6 % (9.0-15.0); WHITE BLOOD COUNT (AUTO) 5.8 K/uL (4.8-10.8)
--- NOTE | 2019-01-25 07:25 | NUR ---
closing note patient resting in comfortable position, no s/sx of distress, non-labored breathing on 2L LC. Safety precautions in place, direct observer in room with patient. Endorsed report.
--- NOTE | 2019-01-25 07:50 | NUR ---
opening note patient is resting in bed, sitter is present, assessment completed, patient is on 2L nasal cannula, PICC line dressing intact with IV fluids running, educated personal lines advisor light system and plan of care, patient did not give me a verbal response he kept trying to shake my hand, fall/safety precautions in place.
[2019-01-25] MEDS: HYDROCORTISONE SOD SUCC 100 MG/2 ML VIAL IVP SCH ×2 (08:35→21:25)
[2019-01-25] MEDS: clonazePAM 0.5 MG TABLET PO SCH ×2 (08:35→21:26)
[2019-01-25] MEDS: PANTOPRAZOLE SODIUM 40 MG/VIAL (PROTONIX) IVP SCH ×2 (08:35→21:25)
[2019-01-25] MEDS: LACTULOSE 20 GM/30 ML UDC PO SCH (08:35)
[2019-01-25] MEDS: MULTIVITS,CA,MINERALS/IRON/FA 1 TABLET PO SCH (08:36)
[2019-01-25] MEDS: HALOPERIDOL 5 MG TABLET (HALDOL) PO SCH ×2 (08:36→21:25)
[2019-01-25] MEDS: CHOLECALCIFEROL (VITAMIN D3) 2,000 UNIT TABLET PO SCH (08:36)
[2019-01-25] MEDS: DIGOXIN 0.25 MG TABLET PO SCH (08:36)
[2019-01-25] MEDS: ASCORBIC ACID 500 MG TABLET PO SCH (08:36)
[2019-01-25] MEDS: LOSARTAN POTASSIUM 50 MG TABLET (COZAAR) PO SCH (08:37)
--- NOTE | 2019-01-25 09:55 | NUR ---
rounds patient is resting in bed, eyes closed breathing easy and nonlabored, on 2L nasal cannula, IV fluids running, sitter present, no needs addressed at this time, fall/safety precautions in place.
--- NOTE | 2019-01-25 12:00 | NUR ---
spoke to lab I asked them if the 1 unit of PRBCs was ready and they said it wasn't yet.
--- NOTE | 2019-01-25 12:03 | NUR ---
Cloth Painter Note Discussed patient with Psychiatrist, Dr Stewart. He will not renew the psychiatric hold and does not believe that any psychiatric inpatient facility will ever accept patient. Discussed patient with Dr Pelaez and Belinda HARDIN. Patient will be referred to LTAC. Notified [facility].
[2019-01-25] MEDS: QUEtiapine FUMARATE 100 MG TABLET PO SCH ×3 (12:04→17:51)
--- NOTE | 2019-01-25 12:52 | NUR ---
BT INITIATION: Consent signed per patient medical claims representative agreeing to administration of blood. Blood has been type and crossmatched. Blood sent from blood bank. Information on unit of blood checked against patient wristband at bedside by two nurses. All information matches. Patient or responsible libertarian informed of potential complications associated with blood transfusion. Informed of possible transfusion reaction symptoms. Aware of need to notify nurse at once of itching, shortness of breath, flushing, feeling of impending doom, or other symptoms not previously present. RN will remain with patient for first 15 minutes of transfusion at which time vital signs will be re-assessed.
--- NOTE | 2019-01-25 14:26 | NUR ---
medication patient is resting in bed, still receiving transfusion, educated on medication use and side effects, patient tolerated well, sitter present, no other needs addressed at this time, fall/safety precautions in place.
[2019-01-25] MEDS: METOPROLOL TARTRATE 5 MG/5 ML VIAL IVP PRN (15:34)
--- NOTE | 2019-01-25 16:05 | NUR ---
blood transfusion done ending vitals were taken, patient did not have a reaction, will continue to monitor, sitter present, fall/safety precatuions in place.
[2019-01-25] MEDS: cefTRIAXone 1 GM in D5W 50 ML IV SCH (16:55)
--- NOTE | 2019-01-25 18:48 | NUR ---
closing note patient is resting in bed, sitter is present, patient is on 2L nasal cannula, PICC line dressing intact with IV fluids running, patient eyes closed breathing easy and nonlabored, no needs addressed at this time, will endorse report to noc shift nurse to continue with care, patient tolerates medications better by having them crushed and giving it with something to drink, patient does try to bite the plastic spoons and break them and the charge nurse and dietary were informed that the patient should be sent metal spoons instead so that he does not attempt again to bite and break the plastic spoons.
--- NOTE | 2019-01-25 19:15 | NUR ---
change of shift.pt.present quiescent affect;calm,somnolent.,pt.arousable.pt.presents picc line;rt. bicept;intact;patent iv fluids infusing.alert sign@hob.general status stable.respiratory status stable.@room air.call light/telephone w/in reach of the pt.
--- NOTE | 2019-01-25 20:00 | NUR ---
pt.assessed.v/s assessed;values w/in normal limits.pt.assessed for cleanliness.pt.repositioned.pt.presents quiescent affect;calm,somnolent;pt.arousable.picc line assessed;intact; patent iv fluids infusing.general status stable.respiratory status stable: 02-sat%=96$%@room air.call light/ telephone placed w/in reach of the pt.
--- NOTE | 2019-01-25 21:00 | NUR ---
2100pmedications administered;medications crushed administered via syringe;pt capable to consume facilitated via the syringe.
[2019-01-25] MEDS: QUEtiapine FUMARATE 200 MG TAB.SR.24H PO SCH (21:49)
--- NOTE | 2019-01-25 22:00 | NUR ---
pt.assessed.pt.presents quiescent affect;calm,somnolent.pt.arousable.picc line intact;patent;iv fluids infusing.pt.assessed for cleanliness.pt.repositioned.general status stable.respiratory status stable:02-sat%=96%.call light/telephone placed w/in reach of the pt.
--- NOTE | 2019-01-26 | NUR ---
pt.assessed.v/s assessed;values w/in normal limits.pt.assessed for cleanliness.pt.repositioned.pt.presents general status stable.respiratory status stable;picc line intact;patent iv fluids infusing.call light/telephone paced w/in reach of the pt.
[2019-01-26 00:40] VITALS: BP_SYST 95
[2019-01-26] MEDS: IPRATROPIUM/ALBUTEROL SULFATE 3 ML AMPUL.NEB (DUONEB) INH SCH ×4 (00:50→19:30)
--- NOTE | 2019-01-26 02:00 | NUR ---
pt.assessed.pt.presents quiescent affect;calm,somnolent.pt.assessed for cleanliness.pt.repositioned.picc line intact;patent. general status stable.respiratory status stable.call light/telephone placed w/in reach of the pt.
--- NOTE | 2019-01-26 04:00 | NUR ---
pt.assessed.pt.assessed for cleanliness.pt.repositioned.picc line intact;patent.iv fluids infusing.pt.presents quiescent affect;calm,somnolent. general status stable.respiratory status stable.call light/telephone placed w/in reach of the pt.
[2019-01-26] MEDS: METOPROLOL TARTRATE 50 MG TABLET PO SCH ×3 (05:57→20:55)
--- NOTE | 2019-01-26 06:49 | NUR ---
pt.assessed.pt.assessed for cleanliness.pt.repositioned.picc line assessed;intact;patent;iv fluids infusing.i have administered lopressor; 0600a dose;scheduled.pt.had stated he was hungry.i have provided food/snack to the pt.i have fed the pt.no c/o pain, nausea.general status stable.respiratory status stable.speech remained garbled;slurred.call light/telephone placed w/in reach of the pt.
[2019-01-26 06:58] LABS: ALBUMIN 1.9 g/dL (3.4-4.8); CALCIUM 8.9 mg/dL (8.4-11.0); CREATININE 0.59 mg/dL (0.55-1.30); POTASSIUM 3.7 mmol/L (3.5-5.1); TOTAL BILIRUBIN 2.2 mg/dL (0.0-1.0)
[2019-01-26 07:14] LABS: BASOPHILS % (AUTO) 0.4 % (0.0-2.0); EOSINOPHILS # (AUTO) 0.3 K/uL (0.0-0.4); EOSINOPHILS % (AUTO) 4.5 % (0.0-4.0); HEMATOCRIT 28.7 % (36-54); HEMOGLOBIN 9.3 g/dL (14.0-18.0); LYMPHOCYTES % (AUTO) 16.8 % (20.5-51.5); MEAN CORPUSCULAR HEMOGLOBIN 28 pg (27-31); MEAN CORPUSCULAR HGB CONC 33 % (32-36); MEAN CORPUSCULAR VOLUME 85 fL (79.0-98.0); MONOCYTES # (AUTO) 0.4 K/uL (0.0-1.0); MONOCYTES % (AUTO) 6.2 % (1.7-9.3); NEUTROPHILS # (AUTO) 4.2 K/uL (1.8-7.7); NEUTROPHILS % (AUTO) 72.1 % (40.0-70.0); PLATELET COUNT (AUTO) 193 K/uL (130-430); RED BLOOD CELL COUNT(AUTO) 3.37 MIL/uL (4.2-6.2); RED CELL DISTRIBUTION WIDTH 26.1 % (9.0-15.0); WHITE BLOOD COUNT (AUTO) 5.9 K/uL (4.8-10.8)
[2019-01-26 08:00] VITALS: BP_SYST 132
--- NOTE | 2019-01-26 08:00 | NUR ---
Patient sleeping, on 2L NC. PICC line dressing intact with IV fluids running. Patient is reviewed [facility] mason light system and plan of care, patient did not give me a verbal response, but he did open eyes in response to RN, fall/safety precautions in place, bed locked at the lowest position. RN at bedside.
[2019-01-26] MEDS: clonazePAM 0.5 MG TABLET PO SCH ×2 (08:41→20:31)
[2019-01-26] MEDS: PANTOPRAZOLE SODIUM 40 MG/VIAL (PROTONIX) IVP SCH ×2 (08:41→20:31)
[2019-01-26] MEDS: HYDROCORTISONE SOD SUCC 100 MG/2 ML VIAL IVP SCH (08:41)
[2019-01-26] MEDS: LACTULOSE 20 GM/30 ML UDC PO SCH (08:41)
[2019-01-26] MEDS: CHOLECALCIFEROL (VITAMIN D3) 2,000 UNIT TABLET PO SCH (08:43)
[2019-01-26] MEDS: MULTIVITS,CA,MINERALS/IRON/FA 1 TABLET PO SCH (08:43)
[2019-01-26] MEDS: ASCORBIC ACID 500 MG TABLET PO SCH (08:43)
[2019-01-26] MEDS: LOSARTAN POTASSIUM 50 MG TABLET (COZAAR) PO SCH (08:43)
[2019-01-26] MEDS: HALOPERIDOL 5 MG TABLET (HALDOL) PO SCH ×2 (08:43→20:32)
[2019-01-26] MEDS: DIGOXIN 0.25 MG TABLET PO SCH (08:44)
--- NOTE | 2019-01-26 09:00 | NUR ---
Patient has had breakfast, but then becomes somewhat agitated and is screaming. Patient is reoriented. Patient becomes calmer, and resting at this time.
--- NOTE | 2019-01-26 09:37 | NUR ---
Dr. Medina is at bedside assessing patient.
[2019-01-26] MEDS: QUEtiapine FUMARATE 100 MG TABLET PO SCH ×2 (11:02→17:03)
[2019-01-26] MEDS: NACL 0.9% 1,000 ML IV SCH (11:03)
[2019-01-26 11:45] VITALS: BP_SYST 136
--- NOTE | 2019-01-26 12:30 | NUR ---
patient is fed lunch. Tolerated without distress.
[2019-01-26] MEDS ORDERED: VITAMIN B COMPLEX 1 CAP/TAB PO ONE (13:15)
[2019-01-26] MEDS: LORazepam 2 MG/ML VIAL IVP PRN (13:28)
--- NOTE | 2019-01-26 13:30 | NUR ---
Patient is agitated; he is attempting to get out of bed and hit nursing staff. Ativan is given IVP
[2019-01-26] MEDS: DIPHENHYDRAMINE INJ 50 MG/ML VIAL IVP PRN (14:05)
[2019-01-26] MEDS: HALOPERIDOL LACTATE 5 MG/ML VIAL IM PRN (14:05)
[2019-01-26] MEDS: METOPROLOL TARTRATE 5 MG/5 ML VIAL IVP PRN (14:06)
--- NOTE | 2019-01-26 14:10 | NUR ---
Patient remains agitated. Haldol and Benadryl are given per order.
[2019-01-26] MEDS: VALPROIC ACID 250 MG CAPSULE (DEPAKENE) PO SCH ×2 (14:18→20:32)
--- NOTE | 2019-01-26 15:37 | NUR ---
Nikki from [facility] declined to take pt due to homelessness and hx drug abuse/non-compliance. 's address is listed on face sheet--d/w nurse Rom that pt still requiring IV meds to control heart rate-has this been discussed with MD to adjust oral meds for better heart rate control...Rom will f/u-- RN
[2019-01-26 15:55] VITALS: BP_SYST 134
--- NOTE | 2019-01-26 16:05 | NUR ---
Patient pulls out his PICC line. diversified crops i farmworker is informed. Site is covered with dressing. New IV started on Right wrist, #20, intact and patent.
[2019-01-26] MEDS: cefTRIAXone 1 GM in D5W 50 ML IV SCH (16:26)
--- NOTE | 2019-01-26 17:00 | NUR ---
Mother and father of the patients are at bedside. No signs of distress noted.
--- NOTE | 2019-01-26 18:20 | NUR ---
Patient eats dinner. Tolerated without distress.
--- NOTE | 2019-01-26 20:00 | NUR ---
SITTER D/O @ THE BEDSIDE patient agitated legs kicking out at times SAFETY MEASURES intact inplace side Rails up bed to low position monitor .
[2019-01-26 20:11] VITALS: BP_SYST 126
[2019-01-26] MEDS: ONDANSETRON HCL 4 MG/2 ML VIAL IVP PRN (20:31)
[2019-01-26] MEDS: QUEtiapine FUMARATE 200 MG TAB.SR.24H PO SCH (20:32)
--- NOTE | 2019-01-26 21:00 | NUR ---
SEROQUEL 400 MG PO administer in pudding HOB elevated comfort measures implemented FALL MEASURES effective .
--- NOTE | 2019-01-26 21:37 | NUR ---
PROTONIX 40 MG IVP administer d/t History of GI bleed & tolerated .
--- NOTE | 2019-01-26 21:39 | NUR ---
ZOFRAN 4 MG IVP administer for GI upset & helpful per patient .
[2019-01-27 01:00] VITALS: BP_SYST 105
[2019-01-27] MEDS: IPRATROPIUM/ALBUTEROL SULFATE 3 ML AMPUL.NEB (DUONEB) INH SCH ×4 (01:00→20:04)
--- NOTE | 2019-01-27 01:18 | NUR ---
BED BATH GIVEN LININ CHANGE , PATIENT INCONTINENT OF URINE , kept clean & dry FALL RISK , sitter @ the bedside for safety .
--- NOTE | 2019-01-27 05:55 | NUR ---
FALL PRECAUTIONS patient agitated kicking out at times D/O @ the bedside frequent Redirect patient as needed for safety .
[2019-01-27] MEDS: METOPROLOL TARTRATE 50 MG TABLET PO SCH ×3 (06:39→22:16)
--- NOTE | 2019-01-27 08:00 | NUR ---
Patient sleeping, on 2L NC. Patient is reviewed tea plantation worker light system and plan of care, fall/safety precautions in place, bed locked at the lowest position. RN at bedside.
[2019-01-27 08:01] VITALS: BP_SYST 97
[2019-01-27] MEDS: clonazePAM 0.5 MG TABLET PO SCH ×2 (08:26→22:16)
[2019-01-27] MEDS: PANTOPRAZOLE SODIUM 40 MG/VIAL (PROTONIX) IVP SCH ×2 (08:26→22:15)
[2019-01-27] MEDS: LACTULOSE 20 GM/30 ML UDC PO SCH (08:26)
[2019-01-27] MEDS: HALOPERIDOL 5 MG TABLET (HALDOL) PO SCH ×2 (08:27→22:19)
[2019-01-27] MEDS: DIGOXIN 0.25 MG TABLET PO SCH (08:27)
[2019-01-27] MEDS: ASCORBIC ACID 500 MG TABLET PO SCH (08:27)
[2019-01-27] MEDS: VITAMIN B COMPLEX 1 CAP/TAB PO SCH (08:28)
[2019-01-27] MEDS: MULTIVITS,CA,MINERALS/IRON/FA 1 TABLET PO SCH (08:29)
[2019-01-27] MEDS: CHOLECALCIFEROL (VITAMIN D3) 2,000 UNIT TABLET PO SCH (08:29)
[2019-01-27] MEDS: VALPROIC ACID 250 MG CAPSULE (DEPAKENE) PO SCH ×3 (08:29→22:15)
[2019-01-27] MEDS: LOSARTAN POTASSIUM 50 MG TABLET (COZAAR) PO SCH (09:00)
--- NOTE | 2019-01-27 09:05 | NUR ---
PATIENT IS FED WITH BREAKFAST. HE BECAME AGITATED. PATIENT IS NOT RECEPTIVE TO NURSE'S REORIENTATION. HALDOL AND BENADRYL ARE GIVEN ORDERED.
[2019-01-27] MEDS: HALOPERIDOL LACTATE 5 MG/ML VIAL IM PRN (09:16)
[2019-01-27] MEDS: DIPHENHYDRAMINE INJ 50 MG/ML VIAL IVP PRN (09:16)
[2019-01-27] MEDS: LORazepam 2 MG/ML VIAL IVP PRN (10:00)
--- NOTE | 2019-01-27 10:00 | NUR ---
PATIENT REMAINS AGITATED, HE STILL TRIES TO HIT THE SIDE RAILS AND CLIMB OUT OF THE BED. ATIVAN IVP IS GIVEN. WILL REASSESS.
--- NOTE | 2019-01-27 10:40 | NUR ---
PATIENT IS CALM BUT AROUSABLE. V/S STABLE AT THIS TIME.
[2019-01-27] MEDS: NACL 0.9% 1,000 ML IV SCH (11:14)
[2019-01-27 12:00] VITALS: BP_SYST 112
--- NOTE | 2019-01-27 12:40 | NUR ---
patient is fed with lunch. no signs of distress noted
[2019-01-27] MEDS: QUEtiapine FUMARATE 100 MG TABLET PO SCH ×2 (13:17→18:17)
--- NOTE | 2019-01-27 13:33 | NUR ---
Nutrition F/U RD reviewed pt's current EMR including diet Hx, physician notes, nursing notes, pertinent labs/meds/procedures, care trends, and care activity. Admission Dx: chest pain PMH: chronic atr fibr, CHF, COPD, obesity, chronic nicotine dependence per physician notes Current Diet Order: soft (low fiber/bland), Ensure Enlive TID x7 days Subjective information: Pt was confused at time of RD visit. Resource RN at bedside providing care at time of RD visit. RD spoke to primary RN via phone call. RN reported that pt ate 50% of both breakfast and lunch today, w/ some noted difficulty chewing/swallowing w/ bouts of coughing, though RN feels that pt does not quite need a ST swallow eval. He also reported that pt drinks nearly 100% of Ensure Enlive ONS. RN reported pt had BM x2 yesterday. Per physician notes, awaiting transfer to LTAC. Ht: 75"/6'2" Wt: 272#/123 kg -- (01/18/19) stable; no new wt recorded BMI: 34 kg/m2 (obesity class I) IBW: 196#/89 kg %IBW: 138% Adj IBW (obesity): 215#/98 kg Current PO intake: 46% average x5 meals -- continues poor since last RD visit 01/24/19 ESTIMATED NUTRITIONAL REQUIREMENTS CALORIES/DAY: 5480-1288 kcal/day (MSJ x 1.2-1.5 for obesity, COPD) PROTEIN/DAY: 127-196 gm/day (1.3-2 gm/kg Adj IBW for obesity, COPD) FLUID/DAY: Per physician d/t Hx of CHF D: 1. Morbid Obesity r/t inability to access healthier food choices AEB possible consumption of high calorie food and beverage from fast food restaurants and convenient stores, homelessness and BMI 40 kg/m2. *no longer applicable 2. Inadequate nutrient intake r/t medication intake AEB PO intake not meeting 75% of estimated needs and nursing staff report. *ongoing 3. Unintentional wt loss related to possible lean muscle mass depletion as evidenced by possible 47#/15% wt change within 1 month. *ongoing I: 1. Recommend continuing soft (low fiber/bland) diet w/ Ensure Enlive TID (ONS provides 1050 kcal/day, 60 gm protein/day) 2. Encourage pt to increase PO intake. M: Monitor appetite and PO intake w/ goal of pt meeting at least 75% of estimated nutritional needs, labs trending WNL, normal GI function, skin integrity/wt maintenance. E: High Risk; RD to F/U within 2-3 days
--- NOTE | 2019-01-27 13:51 | NUR ---
Dietitian Recommendations 1. Recommend continuing soft (low fiber/bland) diet w/ Ensure Enlive TID (ONS provides 1050 kcal/day, 60 gm protein/day) 2. Encourage pt to increase PO intake. LP, RD Please refer to Nutrition F/U for details.
--- NOTE | 2019-01-27 14:00 | NUR ---
PATIENT URINATED 300ML OF URINE.
[2019-01-27 16:00] VITALS: BP_SYST 98
--- NOTE | 2019-01-27 16:05 | NUR ---
Patient is turned and repositioned for comfort.
[2019-01-27] MEDS: cefTRIAXone 1 GM in D5W 50 ML IV SCH (16:22)
[2019-01-27] MEDS ORDERED: ACETAMINOPHEN 325 MG TABLET PO PRN (17:30)
--- NOTE | 2019-01-27 18:05 | NUR ---
Patient is fed dinner at this time. No signs of distress noted.
[2019-01-27] MEDS: POTASSIUM CHLORIDE 20 MEQ/PKT PACKET PO SCH (18:17)
[2019-01-27] MEDS: FUROSEMIDE 20 MG/2 ML VIAL IVP SCH (18:21)
[2019-01-27 18:31] LABS: CALCIUM 8.8 mg/dL (8.4-11.0); CREATININE 0.58 mg/dL (0.55-1.30); POTASSIUM 4.1 mmol/L (3.5-5.1)
[2019-01-27 18:35] LABS: ALBUMIN 1.9 g/dL (3.4-4.8); TOTAL BILIRUBIN 2.1 mg/dL (0.0-1.0)
[2019-01-27 18:41] LABS: RED CELL DISTRIBUTION WIDTH 26.6 % (9.0-15.0)
[2019-01-27 18:46] LABS: HEMATOCRIT 29.3 % (36-54); HEMOGLOBIN 9.6 g/dL (14.0-18.0); MEAN CORPUSCULAR HEMOGLOBIN 28 pg (27-31); MEAN CORPUSCULAR HGB CONC 33 % (32-36); MEAN CORPUSCULAR VOLUME 85 fL (79.0-98.0); PLATELET COUNT (AUTO) 313 K/uL (130-430); RED BLOOD CELL COUNT(AUTO) 3.44 MIL/uL (4.2-6.2)
[2019-01-27 18:51] LABS: WHITE BLOOD COUNT (AUTO) 10.9 K/uL (4.8-10.8)
[2019-01-27 18:56] LABS: BAND % (MANUAL) 4 % (0-6); BASOPHILS % (MANUAL) 0 % (0-2); EOSINOPHILS % (MANUAL) 4 % (0-7); LYMPHOCYTES % (MANUAL) 12 % (20-46); METAMYELOCYTES % 1 % (0-0); MONOCYTES % (MANUAL) 9 % (0-11)
[2019-01-27 20:46] VITALS: BP_SYST 123
--- NOTE | 2019-01-27 21:35 | NUR ---
BED BATH GIVEN D/T incontinence of urine , comfort measures implemented off loading with pillows helpful .
[2019-01-27] MEDS: QUEtiapine FUMARATE 200 MG TAB.SR.24H PO SCH (22:16)
[2019-01-28] VITALS (8 sets, daily range): BP systolic 110–157
--- NOTE | 2019-01-28 | NUR ---
KLONOPIN 1 MG PO administer as ordered for anxiety patient still agitated at times / monitor .
[2019-01-28] MEDS: IPRATROPIUM/ALBUTEROL SULFATE 3 ML AMPUL.NEB (DUONEB) INH SCH ×4 (01:00→19:33)
--- NOTE | 2019-01-28 02:46 | NUR ---
FALL MEASURES inplace D/O @ the bedside patient AGITATED AT TIMES KICKING OUT Re direct frequent as needed .
--- NOTE | 2019-01-28 02:54 | NUR ---
HALDOL 5 MG PO administer as ordered for agitation & helpful safety measures implemented fall Risk .
--- NOTE | 2019-01-28 02:56 | NUR ---
SITTER D/O @ the bedside FALL MEASURES INPLACE patient does frequent want to ambulate climb out of bed , History of falls noted .
--- NOTE | 2019-01-28 04:33 | NUR ---
Patient awake on and off verbally Responsive SITTER D/O @ the bedside on 02 NC @ 2 LPM position change on schedule SAFETY MEASURES EFFECTIVE PATIENT IS FALL RISK .
[2019-01-28] MEDS: METOPROLOL TARTRATE 50 MG TABLET PO SCH ×3 (06:19→22:00)
[2019-01-28] MEDS: POTASSIUM CHLORIDE 20 MEQ/PKT PACKET PO SCH ×2 (06:19→18:46)
[2019-01-28] MEDS: FUROSEMIDE 20 MG/2 ML VIAL IVP SCH (06:20)
[2019-01-28 06:22] LABS: BASOPHILS % (AUTO) 0.4 % (0.0-2.0); EOSINOPHILS # (AUTO) 0.2 K/uL (0.0-0.4); EOSINOPHILS % (AUTO) 1.8 % (0.0-4.0); HEMATOCRIT 28.9 % (36-54); HEMOGLOBIN 9.3 g/dL (14.0-18.0); LYMPHOCYTES # (AUTO) 0.9 K/uL (1.0-5.5); LYMPHOCYTES % (AUTO) 7.8 % (20.5-51.5); MEAN CORPUSCULAR HEMOGLOBIN 27 pg (27-31); MEAN CORPUSCULAR HGB CONC 32 % (32-36); MEAN CORPUSCULAR VOLUME 85 fL (79.0-98.0); MONOCYTES # (AUTO) 1.7 K/uL (0.0-1.0); NEUTROPHILS # (AUTO) 8.4 K/uL (1.8-7.7); PLATELET COUNT (AUTO) 337 K/uL (130-430); RED BLOOD CELL COUNT(AUTO) 3.41 MIL/uL (4.2-6.2); RED CELL DISTRIBUTION WIDTH 26.8 % (9.0-15.0); WHITE BLOOD COUNT (AUTO) 11.2 K/uL (4.8-10.8)
[2019-01-28 06:52] LABS: ALBUMIN 1.7 g/dL (3.4-4.8); CALCIUM 9.1 mg/dL (8.4-11.0); CREATININE 0.68 mg/dL (0.55-1.30); DIGOXIN 0.6 ng/mL (0.80-2.00); POTASSIUM 4.1 mmol/L (3.5-5.1); TOTAL BILIRUBIN 2.4 mg/dL (0.0-1.0)
--- NOTE | 2019-01-28 08:00 | NUR ---
initial notes rec patient awake but confused. with a sitter at bedside. resp labored with exertion and sound congested.on breathing tx when rounds made. dr cuh at bedside. pt was crying and stated i'm scared. wll continue to monitor patient.
[2019-01-28] MEDS ORDERED: FUROSEMIDE 40 MG/4 ML VIAL IVP ONE (09:00)
--- NOTE | 2019-01-28 09:00 | NUR ---
rounds dr chu was called with the result of abg's and with order. will continue to .monitor patient
[2019-01-28] MEDS ORDERED: FUROSEMIDE 40 MG/4 ML VIAL ONE (09:16)
--- NOTE | 2019-01-28 09:23 | NUR ---
rounds dr benoit atv bedside and made aware of the abg result.
--- NOTE | 2019-01-28 12:00 | NUR ---
rounds pt refused to et but took the can of ensure. pt is incontinent of urine and was keep dry and clean.
[2019-01-28] MEDS: VITAMIN B COMPLEX 1 CAP/TAB PO SCH (12:28)
[2019-01-28] MEDS: MULTIVITS,CA,MINERALS/IRON/FA 1 TABLET PO SCH (12:28)
[2019-01-28] MEDS: VALPROIC ACID 250 MG CAPSULE (DEPAKENE) PO SCH ×3 (12:28→21:00)
[2019-01-28] MEDS: HALOPERIDOL 5 MG TABLET (HALDOL) PO SCH ×2 (12:28→21:00)
[2019-01-28] MEDS: clonazePAM 0.5 MG TABLET PO SCH ×2 (12:29→21:00)
[2019-01-28] MEDS: QUEtiapine FUMARATE 100 MG TABLET PO SCH ×2 (12:30→18:50)
[2019-01-28] MEDS: DIGOXIN 0.25 MG TABLET PO SCH (12:30)
[2019-01-28] MEDS: CHOLECALCIFEROL (VITAMIN D3) 2,000 UNIT TABLET PO SCH (12:30)
[2019-01-28] MEDS: PANTOPRAZOLE SODIUM 40 MG/VIAL (PROTONIX) IVP SCH ×2 (12:31→21:18)
[2019-01-28] MEDS: LACTULOSE 20 GM/30 ML UDC PO SCH (12:31)
[2019-01-28] MEDS: ASCORBIC ACID 500 MG TABLET PO SCH (12:31)
--- NOTE | 2019-01-28 14:00 | NUR ---
rounds 2 heplocks were pulled out by patient. restarted on the l forearm.# 20. no infltration noted.
[2019-01-28] MEDS: LORazepam 2 MG/ML VIAL IVP PRN (15:23)
--- NOTE | 2019-01-28 16:30 | NUR ---
rounds pt incontinent of urine and keeo dry and clean, turned repositioned for comfort.
[2019-01-28] MEDS: cefTRIAXone 1 GM in D5W 50 ML IV SCH (16:34)
[2019-01-28] MEDS: LOSARTAN POTASSIUM 50 MG TABLET (COZAAR) PO SCH (16:35)
[2019-01-28] MEDS ORDERED: DIGOXIN 0.5 MG/2 ML AMP IVP ONE (18:21)
[2019-01-28] MEDS: FUROSEMIDE 40 MG/4 ML VIAL IVP SCH (18:46)
--- NOTE | 2019-01-28 19:15 | NUR ---
change of shift.pt.has received the administration;cardizem;ivp;2/t rapid heart rate.pt.presents congested lung sounds upon auscultation;to set-up suction eq.pt.requires suctioning.iv access re-established per day romyg;priscila;rn.iv access intact;patent:iv fluids infusing.respiratory status; labored;o2 therapy administered via nasal cannulae;@the rate;2/l/min.o2-sat%=93%.
--- NOTE | 2019-01-28 20:00 | NUR ---
pt.assessed.pt.presents s/p cardizem ivp administration per dy shift rn;priscila;rapid heart rate.total v/s assessed;h/r;=105bmp.pt.assessed for cleanliness.pt.cleaned.pt.repositioned.suction set-up:pt.suctioned. o2-sat improved;fhry24-327%.pt.[prsents speech;qualitiy;garbled;slurred;unintelligible. general status guarded,respiratory status;labored.call light/telephone placed w/in reach of the pt.
[2019-01-28] MEDS: QUEtiapine FUMARATE 200 MG TAB.SR.24H PO SCH (21:00)
--- NOTE | 2019-01-28 21:00 | NUR ---
2100pmedication administration.pt.presented lethargic affect;pt incapable to swallow medications.i am able to administer:protonix;ivp.to attempt to administer po medications @a later hour.
--- NOTE | 2019-01-28 22:00 | NUR ---
pt.assessed.pt.assessed for cleanliness.pt.repositioned.o2-sat%=94%.iv access intact;patent. iv fluids infusing.general status stable.respiratory status stable;unlabored.call light/telephone placed w/in reach of the pt. Addendum: 01/29/19 at 0429 by Landry Stoner RN i have suctioned the pt.breathing pattern relaxed.
[2019-01-29] VITALS (21 sets, daily range): BP systolic 71–136
--- NOTE | 2019-01-29 | NUR ---
pt.assessed.v/s assessed.values w/in normal limits;h/n=830fwg.i have placed the pulse oximeter upon index finger;monitor the h/r.pt.assessed for cleanliness.pt.repositioned. iv access intact;patent.general status stable.respiratory status stable;unlabored; 02-sat=94%.call light/telephone placed w/in reach of the pt. Addendum: 01/29/19 at 0427 by Landry Stoner RN i have suctioned the pt.breathing pattern relaxed.
[2019-01-29] MEDS: IPRATROPIUM/ALBUTEROL SULFATE 3 ML AMPUL.NEB (DUONEB) INH SCH ×3 (01:00→19:36)
--- NOTE | 2019-01-29 02:00 | NUR ---
pt.assessed.pt.presents quiescent affect;calm,somnolent;cardio;monitor;pt.presents nsr-s.tach;bmp= 95-105bmp.pt.assessed for cleanliness.pt.repositioned. iv access intact;patent;iv fluids infusing.general status stable. respiratory status stable:02-sat%=94%;unlabored.call light/ telephone placed w/in reach of the pt. Addendum: 01/29/19 at 8745 by Landry Stoner RN i have suctioned the pt.breathing pattern relaxed.
--- NOTE | 2019-01-29 04:00 | NUR ---
pt.assessed.pt.presents quiescent affect;calm,somnolent.pt.assessed for cleanliness.pt.repositioned. i have suctioned the pt.general status stable.heart rate;=103bmp.respiratory status stable:02-sat%= 94%.iv access intact;patent:iv fluids infusing.call light/telephone placed w/in reach of the pt.
[2019-01-29] MEDS: METOPROLOL TARTRATE 50 MG TABLET PO SCH ×2 (06:00→14:00)
[2019-01-29] MEDS: POTASSIUM CHLORIDE 20 MEQ/PKT PACKET PO SCH ×2 (06:00→17:24)
[2019-01-29] MEDS: FUROSEMIDE 40 MG/4 ML VIAL IVP SCH ×2 (06:05→17:26)
[2019-01-29 06:06] LABS: BASOPHILS % (AUTO) 0.2 % (0.0-2.0); EOSINOPHILS # (AUTO) 0.3 K/uL (0.0-0.4); EOSINOPHILS % (AUTO) 2.2 % (0.0-4.0); HEMATOCRIT 26.5 % (36-54); HEMOGLOBIN 8.6 g/dL (14.0-18.0); LYMPHOCYTES # (AUTO) 0.8 K/uL (1.0-5.5); LYMPHOCYTES % (AUTO) 6.6 % (20.5-51.5); MEAN CORPUSCULAR HEMOGLOBIN 28 pg (27-31); MEAN CORPUSCULAR HGB CONC 33 % (32-36); MEAN CORPUSCULAR VOLUME 86 fL (79.0-98.0); MONOCYTES % (AUTO) 17.2 % (1.7-9.3); NEUTROPHILS # (AUTO) 8.5 K/uL (1.8-7.7); NEUTROPHILS % (AUTO) 73.8 % (40.0-70.0); PLATELET COUNT (AUTO) 370 K/uL (130-430); RED BLOOD CELL COUNT(AUTO) 3.09 MIL/uL (4.2-6.2); RED CELL DISTRIBUTION WIDTH 26.3 % (9.0-15.0); WHITE BLOOD COUNT (AUTO) 11.5 K/uL (4.8-10.8)
[2019-01-29 06:21] LABS: ALANINE AMINOTRANSFERASE 47 U/L (12-78); ALBUMIN 1.5 g/dL (3.4-4.8); ASPARTATE AMINOTRANSFERASE 17 U/L (10-37); CHLORIDE 105 mmol/L (98-107); CREATININE 0.87 mg/dL (0.55-1.30); GLUCOSE 114 mg/dL (70-99); POTASSIUM 4.2 mmol/L (3.5-5.1); SODIUM SERUM 139 mmol/L (136-145); UREA NITROGEN, BLOOD 24 mg/dL (8-21)
[2019-01-29 06:22] LABS: GFR AFRICAN AMERICAN 120 mL/min (>90)
[2019-01-29 06:23] LABS: ANION GAP < 3 (5-15)
--- NOTE | 2019-01-29 06:38 | NUR ---
pt.assessed.pt.assessed ro cleanliness.pt.cleaned.pt,.repositioned.v/s assessed re;administration;lasix;40mg ivp. values w/in normal limits.attempted to collect the urine sample;iv access intact;patent.general status stable;respiratory status stable.02-sat%=94%.i have suctioned the pt.call light/telephone placed w/in the reach of the pt.heart rate assessed;pt.presents 105bmp.
--- NOTE | 2019-01-29 07:58 | NUR ---
PAGED DR. KEARNS STAT PER NURSE DIALED [phone] SPOKE WITH JESSICA
--- NOTE | 2019-01-29 08:02 | NUR ---
PAGED DR. DHALIWAL PER NURSE DIALED [phone] SPOKE TO SUNIL
[2019-01-29] MEDS ORDERED: ALBUMIN HUMAN 25% 100 ML IV ONE ×2 (08:30→08:38)
[2019-01-29] MEDS ORDERED: COMMUNICATION ORDER XX ONE ×2 (08:30→18:45)
--- NOTE | 2019-01-29 08:45 | NUR ---
initial notes rec patient opens eyes but non verbally responsive. resp is tachypniec. with o2 at 4 liters and was changed to bipap by radha resp therapist. dr benoit, dr lofton and dr chu were called to report pt's declining status. bp was 110/55 then to 93/45 to 70/73. sat was 98 % since on bipap. will be moved to icu after dr benoit was called and reported vital signs.
--- NOTE | 2019-01-29 08:54 | NUR ---
Transferred Pt transferred from TELE to ICU room 4. Report received from Hadley RN using SBAR. Pt connected to in room monitor. Pt is on BiPAP with the setting of 12/5, BUR 12, 40%. SCDs bilaterally in place.
--- NOTE | 2019-01-29 08:56 | NUR ---
Spoke to Dr. Pelaez updated MD of pt's status. New orders received.
[2019-01-29] MEDS: HALOPERIDOL 5 MG TABLET (HALDOL) PO SCH (09:00)
[2019-01-29] MEDS ORDERED: GENTAMICIN 120 mg/100 mL NS 100 ML IV ONE (09:00)
[2019-01-29] MEDS: ASCORBIC ACID 500 MG TABLET PO SCH (09:00)
[2019-01-29] MEDS ORDERED: NOREPINEPHRINE BITARTRATE 4 MG in D5W 246 ML IV PRN (09:00)
[2019-01-29] MEDS: CHOLECALCIFEROL (VITAMIN D3) 2,000 UNIT TABLET PO SCH (09:00)
[2019-01-29] MEDS: LACTULOSE 20 GM/30 ML UDC PO SCH (09:00)
[2019-01-29] MEDS: MULTIVITS,CA,MINERALS/IRON/FA 1 TABLET PO SCH (09:00)
[2019-01-29] MEDS: LOSARTAN POTASSIUM 50 MG TABLET (COZAAR) PO SCH (09:00)
[2019-01-29] MEDS: VITAMIN B COMPLEX 1 CAP/TAB PO SCH (09:00)
[2019-01-29] MEDS: VALPROIC ACID 250 MG CAPSULE (DEPAKENE) PO SCH ×2 (09:00→15:11)
[2019-01-29] MEDS: clonazePAM 0.5 MG TABLET PO SCH (09:00)
--- NOTE | 2019-01-29 09:01 | NUR ---
rounds pt was transferred to icu as per dr benoit. report given to josseline lofton called and gave orders to josseline.
--- NOTE | 2019-01-29 09:15 | NUR ---
IV. ANOTHER IV INSERTED INTO RIGHT WRIST, USING 20 GAUGE CATHETER WITH GOOD BLOOD RETURN NOTED. PT DID NOT FLINCH.
[2019-01-29] MEDS: NOREPINEPHRINE BITARTRATE 4 MG in NS 246 ML IV PRN (09:20)
[2019-01-29] MEDS ORDERED: NS 250 ML IV ONE (09:30)
[2019-01-29] MEDS ORDERED: NS 500 ML IV ONE (09:45)
[2019-01-29] MEDS ORDERED: HYDROCORTISONE SOD SUCC 100 MG/2 ML VIAL IVP ONE (10:30)
--- NOTE | 2019-01-29 10:30 | NUR ---
Time Out Time out provided with [employer] tech, RN for thoracentesis .
--- NOTE | 2019-01-29 10:30 | NUR ---
0810 PT PLACED ON BIPAP SETTINGS OF 12/5 RATE 12 FIO2 .40 DUE TO DIFFICULTY BREATHING. ABG DONE. HR 113 SAT.96%. RN AWARE. Addendum: 01/29/19 at 1034 by Heydi Linares RT Amended: Links added.
[2019-01-29] MEDS: NACL 0.9% 1,000 ML IV SCH (10:52)
--- NOTE | 2019-01-29 10:52 | NUR ---
SPECIMEN. PLEURAL FLUID REMOVED APPROXIMATELY 110 ML, BLOODY IN COLOR, SENT TO PATHOLOGY DEPT AND HANDED TO
[2019-01-29] MEDS: DIGOXIN 0.5 MG/2 ML AMP IVP SCH (10:53)
[2019-01-29] MEDS: PANTOPRAZOLE SODIUM 40 MG/VIAL (PROTONIX) IVP SCH ×2 (10:53→21:58)
--- NOTE | 2019-01-29 11:15 | NUR ---
XRAY. CHEST XRAY DONE POST THORACENTESIS.
[2019-01-29] MEDS: QUEtiapine FUMARATE 100 MG TABLET PO SCH ×2 (12:00→17:26)
--- NOTE | 2019-01-29 12:55 | NUR ---
TO CT SCAN. TRANSPORTED PT TO CT SCAN DEPT VIA BED, BIPAP REMOVED, APPLIED O2 VIA NASAL CANNULA AT 4L, SATURATION BETWEEN 93% TO 96%, LEVOPHED DRIP REMAINS, CONTINUOUS PORTABLE CARDIAC MONITORING AND PULSE OXIMETER IN USE.
--- NOTE | 2019-01-29 13:20 | NUR ---
CT Pt returned from CT scan.
[2019-01-29 13:34] LABS: APPEARANCE,SPUN,BODY FLUID HAZY (CLEAR); BF APPEARANCE UNSPUN BLOODY (CLEAR); BODY FLUID COLOR RED (LT YELLOW); BODY FLUID SOURCE/ TYPE PLEURAL; SOURCE/TYPE ,BODY FLUID PLEURAL
[2019-01-29 13:35] LABS: BODY FLUID TOTAL VOLUME 50 mL; RBC, BODY FLUID 439 /uL; WBC, BODY FLUID 4.5 /uL
[2019-01-29] MEDS ORDERED: MIDAZOLAM HCL 5 MG/5 ML VIAL ONE ×2 (14:00→14:13)
[2019-01-29 14:03] LABS: LYMPHOCYTES, BODY FLUID 10 %; NEUTROPHIL, BODY FLUID 90 %
[2019-01-29] MEDS ORDERED: PROPOFOL DRIP 100 ML IV ONE (14:41)
--- NOTE | 2019-01-29 14:41 | NUR ---
[address] chung. placed on ac20 550+5 100%. 8.0@26cm ll. abg due in 30min. will continue to monitor. Addendum: 01/29/19 at 1443 by Heydi Linares RT Amended: Links added.
--- NOTE | 2019-01-29 14:45 | NUR ---
[place] Witness Shae PINEDA initiating Diprivan @ 5 mcg/kg/min
[2019-01-29] MEDS: 0.45% NACL 1,000 ML IV SCH (14:57)
--- NOTE | 2019-01-29 15:00 | NUR ---
IV DRIPS. WITNESSED DIPRIVAN DRIP INCREASED TO 10 MCG/KG/MIN BY PRIMARY NURSE.
[2019-01-29] MEDS: HYDROCORTISONE SOD SUCC 100 MG/2 ML VIAL IVP SCH ×2 (15:08→22:01)
--- NOTE | 2019-01-29 15:09 | NUR ---
CONSULT. CALLED OFFICE OF DR WILMER COLLIER, SPOKE TO SHANTHI FOR CONSULT.
[2019-01-29] MEDS: CEFEPIME 1 GM in D5W 50 ML IV SCH ×2 (15:12→22:43)
--- NOTE | 2019-01-29 15:25 | NUR ---
Hobson Cath Hobson cath 16 Fr. placed, immediate flashback of dark yellow urine. Skin protectant applied to pt's right thigh and securement placed to pt. Urine draining to gravity.
[2019-01-29 15:33] LABS: BODY FLUID GLUCOSE 29 mg/dL; BODY FLUID TOTAL PROTEIN 3.5 g/dL
--- NOTE | 2019-01-29 15:45 | NUR ---
CHG Provided pt CHG with complete linen change. Pt tolerated well.
--- NOTE | 2019-01-29 16:23 | NUR ---
MD Dr. Garcia called back and informed of CXR, new orders received.
[2019-01-29] MEDS ORDERED: ETOMIDATE 20 MG/ 10 ML VIAL (AMIDATE) IVP ONE (17:13)
[2019-01-29] MEDS: VANCOMYCIN HCL 1,500 MG in NS 250 ML IV SCH (17:14)
[2019-01-29] MEDS: MORPHINE 2 MG/ML INJ. SYRINGE IVP PRN (17:24)
[2019-01-29 17:40] LABS: BILIRUBIN,URINE 1+ (NEGATIVE); BLOOD, URINE NEGATIVE (NEGATIVE); CLARITY/URINE HAZY (CLEAR); COLOR,URINE AMBER (YELLOW); GLUCOSE,URINE NEGATIVE (NEGATIVE); KETONES,URINE 1+ (NEGATIVE); LEUKOCYTE ESTERASE ,URINE NEGATIVE (NEGATIVE); NITRITE, URINE NEGATIVE (NEGATIVE); PH,URINE 5.5 (5.0-8.0); PROTEIN URINE NEGATIVE (NEGATIVE)
[2019-01-29 18:12] LABS: BACTERIA,URINE FEW /HPF (None Seen); FINE GRANULAR CASTS,URINE 0-10 /LPF (None Seen); MUCUS,URINE None Seen /LPF (None Seen); RBC,URINE 0-3 /HPF (0-3); URINE AMORPHOUS URATE 2+ /HPF (None Seen)
[2019-01-29] MEDS: LORazepam 2 MG/ML VIAL IVP PRN (18:44)
[2019-01-29] MEDS ORDERED: LOSARTAN POTASSIUM 50 MG TABLET (COZAAR) NG SCH (19:03)
[2019-01-29] MEDS ORDERED: POLYETHYLENE GLYCOL 3350, 17 GM/ POWD.PACK NG PRN (19:15)
--- NOTE | 2019-01-29 19:18 | NUR ---
Closing Notes Pt endorsed to Abelardo PINEDA using SBAR.
--- NOTE | 2019-01-29 20:00 | NUR ---
LETHARGIC. RESPONSIVE TO NOXIOUS STIMULI. ORALLY INTUBATED. SUCTIONED WITH MOD AMOUNT OF SLIGHTLY PINK TINGED THIN MUCUS OBTAINED. ORAL CARE DONE. NGT THROUGH RIGHT NARES. CLAMPED. ON LEVOPHED DRIP AT 2 MCG/MIN. ON PROPOFOL AT 10 MCG/KG/MIN. RAMOS CATH PATENT DRAINING CLEAR YELLOW IVON URINE TO GRAVITY. PARKER SC'D'S IN PLACE.
--- NOTE | 2019-01-29 20:30 | NUR ---
PT'S PARENTS IN AT BEDSIDE VISITING. UPDATED ON CONDITION. QUESTIONS ANSWERED. SOME EDUCATION ON WEANNG PARAMETERS GIVEN. PARENTS LEFT FOR HOME AT 2044.
[2019-01-29] MEDS: metroNIDAZOLE 500 mg/NS 100 ML IV SCH (21:58)
[2019-01-29] MEDS: VALPROIC ACID ORAL SYRUP 250 MG/5 ML UDC NG SCH (22:00)
--- NOTE | 2019-01-29 22:00 | NUR ---
SUCTIONED. TURNED HS ACRE GIVEN.
[2019-01-29] MEDS: QUEtiapine FUMARATE 200 MG TAB.SR.24H PO SCH (22:01)
[2019-01-29] MEDS: METOPROLOL TARTRATE 50 MG TABLET NG SCH (22:04)
--- NOTE | 2019-01-29 23:40 | NUR ---
DR COLLIER CALLED, UPDATED ON PT'S STATUS. QUESTIONS ANSWERED. ORDERED CMP , CBC AND CHEST X-RAY IN AM IF NOT YET ORDERED. WILL SEE PT IN THE MORNING.
[2019-01-30] VITALS (31 sets, daily range): BP systolic 71–122
--- NOTE | 2019-01-30 | NUR ---
SUCTIONED WITH SAME RESULTS. ORAL CARE GIVEN. TURNED AND REPOSITIONED. LEVOPHED DRIP LEFT AT 2 MCG/MIN. PROPOFOL AT 10 MCG/KG/MIN.
[2019-01-30] MEDS: VANCOMYCIN HCL 1,500 MG in NS 250 ML IV SCH ×4 (00:10→23:34)
[2019-01-30] MEDS: IPRATROPIUM/ALBUTEROL SULFATE 3 ML AMPUL.NEB (DUONEB) INH SCH ×4 (01:15→19:30)
--- NOTE | 2019-01-30 02:00 | NUR ---
SUCTIONED. TURNED. BP 122/59, LEVOPHED DRIP TO 1 MCG/MIN.
[2019-01-30] MEDS: PROPOFOL DRIP 100 ML IV PRN ×3 (02:35→22:04)
--- NOTE | 2019-01-30 04:00 | NUR ---
JOSE 4. SUCTIONED. AGAIN. ORAL CARE RENDERED. BP 116/55, LEVOPHED DRIP OFF.
[2019-01-30 05:39] LABS: BASOPHILS % (AUTO) 0.2 % (0.0-2.0); EOSINOPHILS % (AUTO) 0.1 % (0.0-4.0); HEMATOCRIT 23.5 % (36-54); HEMOGLOBIN 7.7 g/dL (14.0-18.0); LYMPHOCYTES # (AUTO) 0.5 K/uL (1.0-5.5); LYMPHOCYTES % (AUTO) 4.9 % (20.5-51.5); MEAN CORPUSCULAR HEMOGLOBIN 28 pg (27-31); MEAN CORPUSCULAR HGB CONC 33 % (32-36); MEAN CORPUSCULAR VOLUME 85 fL (79.0-98.0); MONOCYTES # (AUTO) 1.4 K/uL (0.0-1.0); MONOCYTES % (AUTO) 13.7 % (1.7-9.3); NEUTROPHILS # (AUTO) 8.5 K/uL (1.8-7.7); NEUTROPHILS % (AUTO) 81.1 % (40.0-70.0); PLATELET COUNT (AUTO) 394 K/uL (130-430); RED BLOOD CELL COUNT(AUTO) 2.77 MIL/uL (4.2-6.2); RED CELL DISTRIBUTION WIDTH 25.8 % (9.0-15.0); WHITE BLOOD COUNT (AUTO) 10.5 K/uL (4.8-10.8)
[2019-01-30] MEDS: FUROSEMIDE 40 MG/4 ML VIAL IVP SCH (05:59)
[2019-01-30] MEDS: HYDROCORTISONE SOD SUCC 100 MG/2 ML VIAL IVP SCH ×3 (06:00→21:57)
--- NOTE | 2019-01-30 06:00 | NUR ---
ATTEMPTS TO PULL ON NGT. UO GOOD. SUCTIONED AND TURNED Q2 HRS AND PRN. DIPRIVAN DRIP AT 10 MCG/KG/MIN. LEVOPHED OFF AT 0400, BP HOLDING UP. REMAINS IN GUARDED CONDITION.
[2019-01-30] MEDS: POTASSIUM CHLORIDE 20 MEQ/PKT PACKET NG SCH ×2 (06:01→18:34)
[2019-01-30] MEDS: METOPROLOL TARTRATE 50 MG TABLET NG SCH ×3 (06:03→21:58)
[2019-01-30 06:19] LABS: ALBUMIN 1.5 g/dL (3.4-4.8); CREATININE 0.59 mg/dL (0.55-1.30); DIGOXIN 1.3 ng/mL (0.80-2.00); POTASSIUM 3.9 mmol/L (3.5-5.1)
[2019-01-30 06:39] LABS: CALCIUM 8.6 mg/dL (8.4-11.0)
--- NOTE | 2019-01-30 07:15 | NUR ---
Opening Note Received bedside report from endorsing RN for continuation of care. Received patient resting in bed, no signs or symptoms of acute distress noted. Bed locked in lowest position, bed alarm on, and call light within reach.
--- NOTE | 2019-01-30 08:34 | NUR ---
Spoke with Dr. Sy on the phone regarding patient status. New orders received.
[2019-01-30] MEDS ORDERED: LIDOCAINE 1% 10 MG/ML, 20 ML MDV INJ ONE (09:00)
[2019-01-30] MEDS: LOSARTAN POTASSIUM 50 MG TABLET (COZAAR) NG SCH ×2 (09:00→10:06)
--- NOTE | 2019-01-30 09:25 | NUR ---
Dr. Garcia at bedside examining patient. New orders received.
--- NOTE | 2019-01-30 09:42 | NUR ---
Dr. Medina at bedside examining patient. New orders received.
--- NOTE | 2019-01-30 09:45 | NUR ---
RT NOTES Vent settings to AC 16 FIO2 to 70% per Dr Garcia's order. No adverse reactions noted. Will monitor pt.
--- NOTE | 2019-01-30 09:47 | NUR ---
2D ECHO being performed at bedside by field crop technical officer. No signs or symptoms of acute distress noted.
[2019-01-30] MEDS ORDERED: FUROSEMIDE 100 MG in D5W 90 ML IV SCH ×2 (10:00→12:27)
[2019-01-30] MEDS: CEFEPIME 1 GM in D5W 50 ML IV SCH ×2 (10:04→20:35)
[2019-01-30] MEDS: metroNIDAZOLE 500 mg/NS 100 ML IV SCH ×2 (10:04→20:34)
[2019-01-30] MEDS: PANTOPRAZOLE SODIUM 40 MG/VIAL (PROTONIX) IVP SCH ×2 (10:05→20:36)
[2019-01-30] MEDS: VITAMIN B COMPLEX 1 CAP/TAB NG SCH (10:05)
[2019-01-30] MEDS: ASCORBIC ACID 500 MG TABLET NG SCH (10:06)
[2019-01-30] MEDS: MULTIVITS,CA,MINERALS/IRON/FA 1 TABLET NG SCH (10:06)
[2019-01-30] MEDS: CHOLECALCIFEROL (VITAMIN D3) 2,000 UNIT TABLET NG SCH (10:06)
[2019-01-30] MEDS: LACTULOSE 20 GM/30 ML UDC NG SCH (10:06)
[2019-01-30] MEDS: DIGOXIN 0.5 MG/2 ML AMP IVP SCH (10:09)
[2019-01-30] MEDS: VALPROIC ACID ORAL SYRUP 250 MG/5 ML UDC NG SCH ×3 (10:10→20:36)
[2019-01-30] MEDS: 0.45% NACL 1,000 ML IV SCH ×2 (10:45→17:59)
--- NOTE | 2019-01-30 10:50 | NUR ---
RT NOTES FIO2 to 60% per titration order. No adverse reactions noted.Will monitor pt. Addendum: 01/30/19 at 1620 by Ruby Larkin RT changed was done at 1150
[2019-01-30] MEDS: LORazepam 2 MG/ML VIAL IVP PRN ×5 (12:17→23:33)
[2019-01-30] MEDS: QUEtiapine FUMARATE 100 MG TABLET NG SCH ×2 (12:17→18:34)
--- NOTE | 2019-01-30 13:17 | NUR ---
RT NOTES FIO2 to 50%. No adverse reactions noted. Will monitor pt.
--- NOTE | 2019-01-30 14:16 | NUR ---
Nutrition F/U RD reviewed pt's current EMR including diet Hx, physician notes, nursing notes, pertinent labs/meds/procedures, care trends, and care activity. Admission Dx: chest pain PMH: chronic atr fibr, CHF, COPD, obesity, chronic nicotine dependence per physician notes Current Nutrition Support Order: Jevity 1.2 at 20 ml/hr (titrate to 60 ml/hr), Free Water Flush: 100CC [id number] via OGT Subjective information: Pt seen heavily sedated w/ NGT to R [place]ainee. TF formula bottle: Jevity 1.2 seen sitting on bedside table -- no evidence of TF pump at bedside. Propofol was infusing at 11.07 ml/hr, providing 292 kcal/day from lipids. Current TF regimen is suboptimal for current condition as RN stated that pt was transferred to ICU d/t respiratory distress yesterday, and was intubated yesterday as well. RD phoned Dr. Pelaez's office and spoke w/ care advocate at 1415 for TF order modification; awaiting call back. RD notified pt's primary RN regarding RD TF rec as well. Ht: 75"/6'2" Wt: 272#/123 kg -- (01/18/19) stable; no new wt recorded BMI: 34 kg/m2 (obesity class I) IBW: 196#/89 kg %IBW: 138% Adj IBW (obesity): 215#/98 kg Current PO intake: 46% average x5 meals -- continues poor since last RD visit 01/24/19 ESTIMATED NUTRITIONAL REQUIREMENTS NEW CALORIES/DAY: 2427 kcal/day (REE using PSU 2003b d/t critical illness, intubated, on vent support) PROTEIN/DAY: 127-196 gm/day (1.3-2 gm/kg Adj IBW for obesity, COPD) FLUID/DAY: Per physician d/t Hx of CHF D: 1. Morbid Obesity r/t inability to access healthier food choices AEB possible consumption of high calorie food and beverage from fast food restaurants and convenient stores, homelessness and BMI 40 kg/m2. *no longer applicable 2. Inadequate nutrient intake r/t medication intake AEB PO intake not meeting 75% of estimated needs and nursing staff report. *ongoing 3. Unintentional wt loss related to possible lean muscle mass depletion as evidenced by possible 47#/15% wt change within 1 month. *ongoing 4. Inadequate EN support related to critical illness as evidenced by no currently infusing nutrition support. *new I: 1. Recommend Vital AF 1.2 at 70 ml/hr (goal rate), Free Water Flush: 100 ml Q6h via NGT Provides (w/ propofol at 11.07 ml/hr): 2308 kcal/day, 126 gm protein/day, and 1762 ml free water/day Meets: 95% of estimated caloric needs and 99% of lower end of estimated protein needs M: Monitor tolerance to EN support w/ goal of pt meeting at least 85% of estimated nutritional needs, labs trending WNL, normal GI function, skin integrity/wt maintenance. E: High Risk; RD to F/U within 2-3 days
--- NOTE | 2019-01-30 14:29 | NUR ---
Dietitian Recommendations * Recommend Vital AF 1.2 at 70 ml/hr (goal rate), Free Water Flush: 100 ml Q6h via NGT Provides (w/ propofol at 11.07 ml/hr): 2308 kcal/day, 126 gm protein/day, and 1762 ml free water/day Meets: 95% of estimated caloric needs and 99% of lower end of estimated protein needs LP, RD Please refer to Nutrition F/U for details. RD called Dr. Pelaez's office and spoke w/ medical unit secretary at 1415. Awaiting call back from Dr. Pelaez regarding approval of modification of TF order.
[2019-01-30] MEDS: NOREPINEPHRINE BITARTRATE 4 MG in NS 246 ML IV PRN (15:11)
--- NOTE | 2019-01-30 16:05 | NUR ---
RT NOTES FIO2 TO 40% per titration order. No adverse reactions noted.
--- NOTE | 2019-01-30 17:19 | NUR ---
Dr. Pelaez in to see patient. New orders received.
--- NOTE | 2019-01-30 19:06 | NUR ---
Endorsement Endorsed bedside report to oncoming RN using SBAR approach for continuation of care.
--- NOTE | 2019-01-30 20:52 | NUR ---
AT 1913 P.M, RECEIVED NURSING REPORT FROM DAY SHIFT KULWINDER Mederos, PATIENT IS RESTLESS ON THE BED, ET-TUBE INTACT, VENTILATOR SETTING : AC 16, TV 550, FIO2 40 %, PEEP 5 , O2 SAT. 100% , B.P 93/47 MMHG, DEPENDED LEVOPHED DRIP 2 MCG/MIN, NG-TUBE INTACT,WITH FORMULA FEEDING CONTINUE, RESIDUAL 40 ML, RAMOS INTACT, DRAIN OUT YELLOW COLOR, CLEAR URINE, WITH LASIX DRIP 5 MG/5 ML/ HOUR, PATIENT IS VERY RESTLESS, AGITATION, ORDERED ON PROPOFOL DRIP 5 MCG/KG/MIN CONTINUE, AND BILATERAL WRISTS WEAR RESTRAINT CONTINUE FOR SAFETY, CHECK PERIPHERAL CIRCULATION AND REPOSITION EVERY 2 HOURS ,RAILS UP, KEEP CLEAN, COMFORTABLE ALL TIMES
[2019-01-31] VITALS (35 sets, daily range): BP systolic 91–127
--- NOTE | 2019-01-31 | NUR ---
CHG BATH DONE
[2019-01-31] MEDS: IPRATROPIUM/ALBUTEROL SULFATE 3 ML AMPUL.NEB (DUONEB) INH SCH ×4 (00:45→19:46)
[2019-01-31] MEDS: LORazepam 2 MG/ML VIAL IVP PRN ×8 (01:16→23:47)
[2019-01-31] MEDS: 0.45% NACL 1,000 ML IV SCH ×3 (02:19→17:36)
[2019-01-31] MEDS: FUROSEMIDE 100 MG in D5W 90 ML IV SCH (04:22)
[2019-01-31] MEDS ORDERED: FUROSEMIDE 20 MG/2 ML VIAL ONE (04:22)
[2019-01-31] MEDS ORDERED: FUROSEMIDE 40 MG/4 ML VIAL ONE (04:22)
--- NOTE | 2019-01-31 04:36 | NUR ---
AT 0400 A.M, TITRATED OFF LEVOPHED DRIP ,B.P 116/56 MMHG
[2019-01-31] MEDS: POTASSIUM CHLORIDE 20 MEQ/PKT PACKET NG SCH ×2 (05:14→17:35)
[2019-01-31 05:26] LABS: BASOPHILS % (AUTO) 0.2 % (0.0-2.0); HEMATOCRIT 24.3 % (36-54); HEMOGLOBIN 7.9 g/dL (14.0-18.0); LYMPHOCYTES # (AUTO) 0.6 K/uL (1.0-5.5); MEAN CORPUSCULAR HEMOGLOBIN 28 pg (27-31); MEAN CORPUSCULAR HGB CONC 33 % (32-36); MEAN CORPUSCULAR VOLUME 84 fL (79.0-98.0); MONOCYTES # (AUTO) 1.6 K/uL (0.0-1.0); MONOCYTES % (AUTO) 16.3 % (1.7-9.3); NEUTROPHILS # (AUTO) 7.6 K/uL (1.8-7.7); NEUTROPHILS % (AUTO) 77.5 % (40.0-70.0); PLATELET COUNT (AUTO) 442 K/uL (130-430); RED BLOOD CELL COUNT(AUTO) 2.88 MIL/uL (4.2-6.2); RED CELL DISTRIBUTION WIDTH 25.7 % (9.0-15.0); WHITE BLOOD COUNT (AUTO) 9.8 K/uL (4.8-10.8)
[2019-01-31 05:46] LABS: ALBUMIN 1.5 g/dL (3.4-4.8); CALCIUM 8.1 mg/dL (8.4-11.0); CREATININE 0.73 mg/dL (0.55-1.30); PHOSPHORUS 3.3 mg/dL (2.7-4.5); TOTAL BILIRUBIN 1.5 mg/dL (0.0-1.0)
--- NOTE | 2019-01-31 06:24 | NUR ---
PATIENT,S FORMULA FEEDING TOLERATED WELL, NO RESIDUAL AT THIS TIME, AT 0600 A.M INCREASED FEEDING RATE TO 40 M/HOUR
--- NOTE | 2019-01-31 07:25 | NUR ---
GIVE COMPLETE NURSING REPORT TO DAY SHIFT SCARLET Mederos
--- NOTE | 2019-01-31 07:37 | NUR ---
Witnessed diprivan drip titration to 10 mcg/kg/min.
--- NOTE | 2019-01-31 07:45 | NUR ---
Opening Note Patient received sleeping in bed with no signs of distress noted. Patient on pot fisher with A-fib. Patient on the ventilator with settings of AC 16, tidal volume 550, FiO2 40%, and PEEP 5 breathing evenly and unlabored. Patient has multiple IV sites patent and flushing well. Patient on a diprivan drip @ 10 mcg/min and lasix drip @ 2 mg/min. Patient also receiving 1/2 NS @ 120 ml/hr. Patient has a right nare NGT infusing Jevity 1.2 @ 40 ml/hr. Patient has a durbin catheter in place draining yellow urine. Safety precautions enforced.
--- NOTE | 2019-01-31 07:50 | NUR ---
Witnessed diprivan drip titration to 15 mcg/kg/min.
--- NOTE | 2019-01-31 07:53 | NUR ---
MD Rounds Dr. Medina @ bedside for assessment. New orders received and carried out.
[2019-01-31] MEDS: VANCOMYCIN HCL 1,500 MG in NS 250 ML IV SCH ×3 (08:23→23:48)
[2019-01-31] MEDS: metroNIDAZOLE 500 mg/NS 100 ML IV SCH ×2 (08:24→20:13)
[2019-01-31] MEDS: LACTULOSE 20 GM/30 ML UDC NG SCH (08:25)
[2019-01-31] MEDS: MULTIVITS,CA,MINERALS/IRON/FA 1 TABLET NG SCH (08:25)
[2019-01-31] MEDS: PANTOPRAZOLE SODIUM 40 MG/VIAL (PROTONIX) IVP SCH ×2 (08:25→20:11)
[2019-01-31] MEDS: ASCORBIC ACID 500 MG TABLET NG SCH (08:25)
[2019-01-31] MEDS: VITAMIN B COMPLEX 1 CAP/TAB NG SCH (08:26)
[2019-01-31] MEDS: VALPROIC ACID ORAL SYRUP 250 MG/5 ML UDC NG SCH ×3 (08:26→20:12)
[2019-01-31] MEDS: CHOLECALCIFEROL (VITAMIN D3) 2,000 UNIT TABLET NG SCH (08:26)
[2019-01-31] MEDS: CEFEPIME 1 GM in D5W 50 ML IV SCH ×2 (08:27→20:13)
[2019-01-31] MEDS: DIGOXIN 0.5 MG/2 ML AMP IVP SCH (08:27)
[2019-01-31] MEDS: LOSARTAN POTASSIUM 50 MG TABLET (COZAAR) NG SCH (08:27)
[2019-01-31] MEDS ORDERED: POTASSIUM CHLORIDE 20 MEQ/PKT PACKET PO ONE (09:00)
[2019-01-31] MEDS: ALBUMIN HUMAN 25% 50 ML IV SCH ×3 (09:19→20:13)
--- NOTE | 2019-01-31 11:15 | NUR ---
RN Rounds Family @ bedside. RN answered questions. Patient in no signs of distress.
--- NOTE | 2019-01-31 11:20 | NUR ---
RN Rounds Dr. Ray @ bedside for examination. No new orders received.
[2019-01-31] MEDS: QUEtiapine FUMARATE 100 MG TABLET NG SCH ×2 (12:00→17:35)
--- NOTE | 2019-01-31 12:00 | NUR ---
RN Rounds Patient sleeping @ this time, still on Diprivan drip. Patient in no signs of distress. Safety precautions enforced.
--- NOTE | 2019-01-31 12:20 | NUR ---
MD Rounds Dr. Pelaez @ bedside to see patient. No new orders received.
[2019-01-31] MEDS: PROPOFOL DRIP 100 ML IV PRN (12:25)
--- NOTE | 2019-01-31 13:50 | NUR ---
MD Rounds Dr. Garcia @ bedside for assessment. New orders received and carried out.
[2019-01-31] MEDS: METOPROLOL TARTRATE 50 MG TABLET NG SCH ×2 (14:00→22:00)
--- NOTE | 2019-01-31 14:00 | NUR ---
RT NOTES - ETT ADVANCE 1CM ADVANCED ETT FROM 27CM TO 28CM AT THIS TIME PER . ETT PROPERLY SECURED. CUFF INFLATED WITH 26CM H2O. RN SCARLET NOTIFIED. WILL CONTINUE MONITORING.
[2019-01-31] MEDS: HYDROCORTISONE SOD SUCC 100 MG/2 ML VIAL IVP SCH ×2 (14:10→20:12)
--- NOTE | 2019-01-31 14:34 | NUR ---
Witnessed diprivan drip titration to 10 mcg/kg/min
--- NOTE | 2019-01-31 15:00 | NUR ---
Witnessed diprivan drip titration to 5 mcg/kg/min
--- NOTE | 2019-01-31 15:34 | NUR ---
Witness alex watersip turned off.
--- NOTE | 2019-01-31 16:00 | NUR ---
RN Rounds Patient sleeping in bed, diprivan drip off. Patient in no signs of distress. Safety precautions enforced.
[2019-01-31] MEDS: MORPHINE 2 MG/ML INJ. SYRINGE IVP PRN ×2 (16:06→18:27)
--- NOTE | 2019-01-31 17:30 | NUR ---
RN Update Seroquel given as ordered. Dr. Radha pak.
--- NOTE | 2019-01-31 19:16 | NUR ---
Closing Note Patient endorsed to material handler 1st shift RN using SBAR format. Patient in no signs of distress @ this time. Safety precautions enforced.
--- NOTE | 2019-01-31 19:30 | NUR ---
AT 1913 P.M, RECEIVED NURSING REPORT FROM FABIANO NOVAK R.N
--- NOTE | 2019-01-31 21:30 | NUR ---
PATIENT IS CONFUSION, RESTLESS, UNABLE TO FOLLOW COMMANDS, TRY TO REACH NG-TUBE AND ET-TUBE, PAGE , ORDERED WEAR BILATERAL WRIST SOFT RESTRAINT FOR SAFETY
[2019-02-01] VITALS (34 sets, daily range): BP systolic 93–139
--- NOTE | 2019-02-01 01:00 | NUR ---
FEEDING TOLERATED WELL, ORDERED INCREASED FEEDING RATE TO 70 ML/HOUR ( GOAL )
[2019-02-01] MEDS: IPRATROPIUM/ALBUTEROL SULFATE 3 ML AMPUL.NEB (DUONEB) INH SCH ×3 (01:42→19:28)
[2019-02-01] MEDS: LORazepam 2 MG/ML VIAL IVP PRN ×5 (03:34→17:09)
[2019-02-01] MEDS: 0.45% NACL 1,000 ML IV SCH ×2 (03:34→13:43)
[2019-02-01] MEDS: MORPHINE 2 MG/ML INJ. SYRINGE IVP PRN (04:13)
[2019-02-01] MEDS: FUROSEMIDE 100 MG in D5W 90 ML IV SCH (04:15)
[2019-02-01] MEDS: POTASSIUM CHLORIDE 20 MEQ/PKT PACKET NG SCH ×2 (05:18→20:28)
[2019-02-01] MEDS: METOPROLOL TARTRATE 50 MG TABLET NG SCH ×3 (06:00→21:40)
[2019-02-01] MEDS: HYDROCORTISONE SOD SUCC 100 MG/2 ML VIAL IVP SCH ×2 (06:23→17:49)
[2019-02-01 06:25] LABS: BASOPHILS % (AUTO) 0.3 % (0.0-2.0); HEMATOCRIT 23.5 % (36-54); HEMOGLOBIN 7.8 g/dL (14.0-18.0); LYMPHOCYTES # (AUTO) 0.6 K/uL (1.0-5.5); LYMPHOCYTES % (AUTO) 6.5 % (20.5-51.5); MEAN CORPUSCULAR HEMOGLOBIN 28 pg (27-31); MEAN CORPUSCULAR HGB CONC 33 % (32-36); MEAN CORPUSCULAR VOLUME 85 fL (79.0-98.0); MONOCYTES # (AUTO) 1.6 K/uL (0.0-1.0); MONOCYTES % (AUTO) 15.8 % (1.7-9.3); NEUTROPHILS # (AUTO) 7.7 K/uL (1.8-7.7); NEUTROPHILS % (AUTO) 77.4 % (40.0-70.0); PLATELET COUNT (AUTO) 469 K/uL (130-430); RED BLOOD CELL COUNT(AUTO) 2.78 MIL/uL (4.2-6.2); RED CELL DISTRIBUTION WIDTH 25.9 % (9.0-15.0); WHITE BLOOD COUNT (AUTO) 9.9 K/uL (4.8-10.8)
[2019-02-01 06:26] LABS: INR 1.4 (0.80-1.20); PROTHROMBIN TIME 14.1 SECS (9.5-12.5)
[2019-02-01 06:38] LABS: ALBUMIN 1.8 g/dL (3.4-4.8); CREATININE 0.7 mg/dL (0.55-1.30); POTASSIUM 3.1 mmol/L (3.5-5.1); TOTAL BILIRUBIN 1.4 mg/dL (0.0-1.0)
--- NOTE | 2019-02-01 07:23 | NUR ---
GIVE COMPLETE NURSING REPORT TO DAY SHIFT SCARLET Mederos
--- NOTE | 2019-02-01 07:27 | NUR ---
Opening Note Patient received sleeping @ this time with no signs of distress. Patient on cardiac care nurse with a-fib. Patient on ventilator with settings of AC 16, tidal volume 550, FiO2 40%, and PEEP 5 breathing evenly and unlabored. Patient has multiple IV sites patent and flushing well. Patient receiving 1/2 NS @ 80 ml/hr and lasix drip @ 2ml/hr. Patient has a right hare NGT infusing Vital AF @ 70 ml/hr. Skin intact. Safety precautions enforced.
--- NOTE | 2019-02-01 07:55 | NUR ---
MD Rounds Dr. Medina @ bedside. No new orders received.
[2019-02-01] MEDS: VANCOMYCIN HCL 1,500 MG in NS 250 ML IV SCH ×3 (08:08→23:22)
[2019-02-01] MEDS: CEFEPIME 1 GM in D5W 50 ML IV SCH ×2 (08:09→20:28)
[2019-02-01] MEDS: LACTULOSE 20 GM/30 ML UDC NG SCH (08:09)
[2019-02-01] MEDS: metroNIDAZOLE 500 mg/NS 100 ML IV SCH ×2 (08:09→20:28)
[2019-02-01] MEDS: VALPROIC ACID ORAL SYRUP 250 MG/5 ML UDC NG SCH ×3 (08:10→20:30)
[2019-02-01] MEDS: ASCORBIC ACID 500 MG TABLET NG SCH (08:10)
[2019-02-01] MEDS: MULTIVITS,CA,MINERALS/IRON/FA 1 TABLET NG SCH (08:10)
[2019-02-01] MEDS: VITAMIN B COMPLEX 1 CAP/TAB NG SCH (08:10)
[2019-02-01] MEDS: PANTOPRAZOLE SODIUM 40 MG/VIAL (PROTONIX) IVP SCH ×2 (08:10→20:29)
[2019-02-01] MEDS: CHOLECALCIFEROL (VITAMIN D3) 2,000 UNIT TABLET NG SCH (08:10)
[2019-02-01] MEDS: LOSARTAN POTASSIUM 50 MG TABLET (COZAAR) NG SCH (08:11)
[2019-02-01] MEDS: DIGOXIN 0.5 MG/2 ML AMP IVP SCH (09:38)
[2019-02-01] MEDS ORDERED: POTASSIUM CHLORIDE 20 MEQ/PKT PACKET NG ONE (10:15)
--- NOTE | 2019-02-01 11:33 | NUR ---
Bed bath RN assisted patient to partial bath. Patient linens changed. Patient tolerated procedure well with no signs of distress noted.
[2019-02-01] MEDS: QUEtiapine FUMARATE 100 MG TABLET NG SCH ×2 (11:55→17:49)
--- NOTE | 2019-02-01 12:00 | NUR ---
RN Rounds Patient sleeping but arousable. Patient in no signs of distress @ this time.
--- NOTE | 2019-02-01 13:55 | NUR ---
RT Note: 1355 Vent rate reduced to [address] Garcia. Pt tolerating change well. Will continue to monitor pt. Addendum: 02/01/19 at 1442 by Janette Jackson RT Amended: Links added.
--- NOTE | 2019-02-01 14:00 | NUR ---
MD Rounds Dr. Garcia @ bedside. New orders received and carried out.
--- NOTE | 2019-02-01 14:18 | NUR ---
RN Update Patient receiving 1 unit PRBC. Patient in no sign of distress. Patient being monitored for adverse reaction.
--- NOTE | 2019-02-01 15:58 | NUR ---
Vancomycin trough/admin Per [facility] pharmacist, RN to give vancomycin IVPB after blood transfusion and reschedule blood draw for vancomycin trough for tomorrow 02/02/19.
--- NOTE | 2019-02-01 19:18 | NUR ---
Closing Note Patient endorsed to restaurant shift leader RN using SBAR format. Patient not in distress @ this time. Safety precautions enforced.
--- NOTE | 2019-02-01 19:25 | NUR ---
PM ASSESSMENT Pt in bed with eyes closed resting comfortably, no signs of acute distress or discomfort noted. VSS with controlled afib seen on the monitor. Pt intubated size 8, lipline 28 cm with vent settings: AC 14, TV 550, Fio2 40% and PEEP of 5. Pt tolerating vent settings well with O2 sats @ 98% and even and unlabored breathing. Pt has a LFA 20g, LH 20g, RH 20g, c/d/i. Pt receiving 1/2 NS @ 40 cc/hr and Lasix drip @ 3 mg/hr. NG tube noted to pt's R nare infusing tubefeeding Vital AF @ 70 cc/hr. Hobson cath noted draining urine to gravity. Bilateral wrist restraints noted, no signs of injury noted. Bilateral SCD's noted to pt's lower extremities. Bed is locked and in lowest position, call light within reach, will cont to monitor pt.
--- NOTE | 2019-02-01 22:12 | NUR ---
Pt in bed with eyes closed resting comfortably. No signs of acute distress or discomfort noted. Will cont to monitor.
[2019-02-02] VITALS (34 sets, daily range): BP systolic 90–154
--- NOTE | 2019-02-02 00:15 | NUR ---
Pt in resting comfortably in bed with eyes closed. No signs of acute distress or discomfort noted. Pt tolerating current vent settings well with even and unlabored breathing and O2 sats @ 97 %. Will cont to monitor pt.
[2019-02-02] MEDS: IPRATROPIUM/ALBUTEROL SULFATE 3 ML AMPUL.NEB (DUONEB) INH SCH ×4 (02:16→19:21)
[2019-02-02] MEDS: FUROSEMIDE 100 MG in D5W 90 ML IV SCH (03:59)
--- NOTE | 2019-02-02 04:30 | NUR ---
CHG CHG bath given to pt at this time. Pt tolerated well, will cont to monitor.
[2019-02-02 06:04] LABS: BASOPHILS # (AUTO) 0.1 K/uL (0.0-0.2); BASOPHILS % (AUTO) 1.3 % (0.0-2.0); EOSINOPHILS # (AUTO) 0.2 K/uL (0.0-0.4); EOSINOPHILS % (AUTO) 1.5 % (0.0-4.0); HEMATOCRIT 26.7 % (36-54); HEMOGLOBIN 8.9 g/dL (14.0-18.0); LYMPHOCYTES # (AUTO) 1.5 K/uL (1.0-5.5); LYMPHOCYTES % (AUTO) 13.8 % (20.5-51.5); MEAN CORPUSCULAR HEMOGLOBIN 28 pg (27-31); MEAN CORPUSCULAR HGB CONC 33 % (32-36); MEAN CORPUSCULAR VOLUME 85 fL (79.0-98.0); MONOCYTES # (AUTO) 1.7 K/uL (0.0-1.0); MONOCYTES % (AUTO) 15.3 % (1.7-9.3); NEUTROPHILS # (AUTO) 7.6 K/uL (1.8-7.7); NEUTROPHILS % (AUTO) 68.1 % (40.0-70.0); PLATELET COUNT (AUTO) 530 K/uL (130-430); RED BLOOD CELL COUNT(AUTO) 3.14 MIL/uL (4.2-6.2); RED CELL DISTRIBUTION WIDTH 24.8 % (9.0-15.0); WHITE BLOOD COUNT (AUTO) 11.2 K/uL (4.8-10.8)
[2019-02-02] MEDS: HYDROCORTISONE SOD SUCC 100 MG/2 ML VIAL IVP SCH ×2 (06:05→18:11)
[2019-02-02] MEDS: METOPROLOL TARTRATE 50 MG TABLET NG SCH ×3 (06:05→21:16)
[2019-02-02 06:10] LABS: ALBUMIN 1.8 g/dL (3.4-4.8); CALCIUM 8.6 mg/dL (8.4-11.0); CREATININE 0.67 mg/dL (0.55-1.30); DIGOXIN 0.7 ng/mL (0.80-2.00); PHOSPHORUS 1.8 mg/dL (2.7-4.5); POTASSIUM 3.1 mmol/L (3.5-5.1); TOTAL BILIRUBIN 1.6 mg/dL (0.0-1.0)
--- NOTE | 2019-02-02 07:00 | NUR ---
ENDORSEMENT Report given to MIRIAM Crowe using SBAR format and pt care was endorsed. No signs of acute distress or discomfort noted.
--- NOTE | 2019-02-02 07:10 | NUR ---
OPENING NOTE: Received SBAR report and plan of care from power and recovery shift engineer RN
--- NOTE | 2019-02-02 08:00 | NUR ---
VANCO: Held AM Vanco dose per pharmacist for high Vanco trough result.
[2019-02-02] MEDS: metroNIDAZOLE 500 mg/NS 100 ML IV SCH ×2 (08:12→21:16)
[2019-02-02] MEDS: CEFEPIME 1 GM in D5W 50 ML IV SCH ×2 (08:13→20:23)
[2019-02-02] MEDS: VALPROIC ACID ORAL SYRUP 250 MG/5 ML UDC NG SCH ×3 (08:13→20:24)
[2019-02-02] MEDS: POTASSIUM CHLORIDE 20 MEQ/PKT PACKET NG SCH ×2 (08:13→20:24)
[2019-02-02] MEDS: LACTULOSE 20 GM/30 ML UDC NG SCH (08:13)
[2019-02-02] MEDS: CHOLECALCIFEROL (VITAMIN D3) 2,000 UNIT TABLET NG SCH (08:14)
[2019-02-02] MEDS: VITAMIN B COMPLEX 1 CAP/TAB NG SCH (08:14)
[2019-02-02] MEDS: ASCORBIC ACID 500 MG TABLET NG SCH (08:14)
[2019-02-02] MEDS: LOSARTAN POTASSIUM 50 MG TABLET (COZAAR) NG SCH (08:14)
[2019-02-02] MEDS: MULTIVITS,CA,MINERALS/IRON/FA 1 TABLET NG SCH (08:14)
[2019-02-02] MEDS: PANTOPRAZOLE SODIUM 40 MG/VIAL (PROTONIX) IVP SCH ×2 (08:14→20:24)
[2019-02-02] MEDS: DIGOXIN 0.5 MG/2 ML AMP IVP SCH (08:15)
[2019-02-02] MEDS ORDERED: METOLAZONE 2.5 MG TABLET PO ONE (09:30)
[2019-02-02] MEDS ORDERED: POTASSIUM CHLORIDE 20 MEQ/PKT PACKET PO ONE (09:30)
[2019-02-02] MEDS: LORazepam 2 MG/ML VIAL IVP PRN ×3 (12:00→23:07)
[2019-02-02] MEDS: QUEtiapine FUMARATE 100 MG TABLET NG SCH ×2 (12:00→18:12)
[2019-02-02] MEDS ORDERED: MAGNESIUM SULFATE 50 ML IV ONE (13:00)
[2019-02-02] MEDS ORDERED: NAPH,MB-DB/K PH,MBDB 250 MG TAB PO ONE (13:00)
--- NOTE | 2019-02-02 13:00 | NUR ---
LOW BP: Dr Pelaez notified of labile BP, currently running low, new orders received.
--- NOTE | 2019-02-02 14:06 | NUR ---
1220 Pt placed back on ac12 due to tachycardia and hypertension. sat 97% pt tolerating vent settings. Addendum: 02/02/19 at 1408 by Heydi Linares RT Amended: Links added.
[2019-02-02] MEDS: 0.45% NACL 1,000 ML IV SCH (14:30)
[2019-02-02] MEDS ORDERED: NOREPINEPHRINE BITARTRATE 4 MG in NS 246 ML IV PRN (14:45)
[2019-02-02] MEDS: VANCOMYCIN HCL 1,500 MG in NS 250 ML IV SCH (16:01)
--- NOTE | 2019-02-02 17:35 | NUR ---
Nutrition Follow Up RD reviewed pt's current EMR including diet Hx, physician notes, nursing notes, pertinent labs/meds/procedures, care trends, and care activity. Admission Dx: chest pain PMH: chronic atr fibr, CHF, COPD, obesity, chronic nicotine dependence per physician notes Current Nutrition Support Order: Vital AF 1.2 at 70 ml/hr (goal rate) Free Water Flush: 100 ml Q6h via NGT -Provides (w/ propofol at 11.07 ml/hr): 2308 kcal/day, 126 gm protein/day, and 1762 ml free water/day Meets: 95% of estimated caloric needs and 99% of lower end of estimated protein needs Subjective information: Pt remains sedated, Vital AF 1.2 at 70ml/hr running in place via NGT with 575ml infused at time of RD visit. Anthropometrics verified. Per nursing, pt is tolerating tube feeding with no residuals, vomiting, diarrhea, or abdominal distention. Pt had 1 BM today. ESTIMATED NUTRITIONAL REQUIREMENTS CALORIES/DAY: 2427 kcal/day (REE using PSU 2003b d/t critical illness, intubated, on vent support) PROTEIN/DAY: 127-196 gm/day (1.3-2 gm/kg Adj IBW for obesity, COPD) FLUID/DAY: Per physician d/t Hx of CHF PES 1. Morbid Obesity r/t inability to access healthier food choices AEB possible consumption of high calorie food and beverage from fast food restaurants and convenient stores, homelessness and BMI 40 kg/m2. *no longer applicable 2. Inadequate nutrient intake r/t medication intake AEB PO intake not meeting 75% of estimated needs and nursing staff report. *ongoing 3. Unintentional wt loss related to possible lean muscle mass depletion as evidenced by possible 47#/15% wt change within 1 month. *ongoing 4. Inadequate EN support related to critical illness as evidenced by no currently infusing nutrition support. *resolved I: 1. Recommend continue Vital AF 1.2 at 70 ml/hr (goal rate), Free Water Flush: 100 ml Q6h via NGT M: Monitor tolerance to EN support w/ goal of pt meeting at least 85% of estimated nutritional needs, labs trending WNL, normal GI function, skin integrity/wt maintenance. E: High Risk; F/U within 2-3 days LT, RD
--- NOTE | 2019-02-02 17:41 | NUR ---
Dietitian Recommendations 1. Recommend continue Vital AF 1.2 at 70 ml/hr (goal rate), Free Water Flush: 100 ml Q6h via NGT Please see further nutrition follow up for details. LT, RD
[2019-02-02] MEDS: NAPH,MB-DB/K PH,MBDB 250 MG TAB PO SCH ×2 (18:12→20:24)
--- NOTE | 2019-02-02 19:05 | NUR ---
PM ASSESSMENT Pt in bed with eyes closed resting comfortably, no signs of acute distress or discomfort noted. VSS with controlled afib seen on the monitor. Pt intubated size 8, lipline 28 cm with vent settings: AC 12, TV 550, Fio2 40% and PEEP of 5. Pt tolerating vent settings well with O2 sats @ 96% and even and unlabored breathing. Pt has a LFA 20g, LH 20g, RH 20g, c/d/i. Pt receiving 1/2 NS @ 40 cc/hr and Lasix drip @ 3 mg/hr. NG tube noted to pt's R nare infusing tubefeeding Vital AF @ 70 cc/hr. Hobson cath noted draining urine to gravity. Bilateral wrist restraints noted, no signs of injury noted. Bilateral SCD's noted to pt's lower extremities. Bed is locked and in lowest position, call light within reach, will cont to monitor pt.
--- NOTE | 2019-02-02 19:19 | NUR ---
ENDORSEMENT: SBAR report given and plan of care endorsed to night patrol inspector RN.
--- NOTE | 2019-02-02 22:10 | NUR ---
Pt in bed, kicking legs. No signs of acute distress or discomfort noted. Pt repositioned at this time, pt tolerated well. Will cont to monitor pt.
[2019-02-03] VITALS (30 sets, daily range): BP systolic 85–142
[2019-02-03] MEDS: IPRATROPIUM/ALBUTEROL SULFATE 3 ML AMPUL.NEB (DUONEB) INH SCH ×4 (00:05→19:41)
--- NOTE | 2019-02-03 00:57 | NUR ---
Pt in resting comfortably in bed with eyes closed. No signs of acute distress or discomfort noted. Pt tolerating current vent settings well with even and unlabored breathing and O2 sats @ 95 %. Will cont to monitor pt.
[2019-02-03] MEDS: VANCOMYCIN HCL 1,500 MG in NS 250 ML IV SCH ×2 (03:29→15:49)
[2019-02-03] MEDS: FUROSEMIDE 100 MG in D5W 90 ML IV SCH ×2 (03:31→15:57)
[2019-02-03] MEDS: LORazepam 2 MG/ML VIAL IVP PRN ×3 (04:42→20:15)
--- NOTE | 2019-02-03 04:50 | NUR ---
CHG CHG bath given to pt at this time, pt tolerated well, will cont to monitor pt.
[2019-02-03 05:27] LABS: BASOPHILS # (AUTO) 0.2 K/uL (0.0-0.2); BASOPHILS % (AUTO) 2.1 % (0.0-2.0); EOSINOPHILS # (AUTO) 0.2 K/uL (0.0-0.4); EOSINOPHILS % (AUTO) 1.6 % (0.0-4.0); HEMATOCRIT 27.4 % (36-54); HEMOGLOBIN 8.8 g/dL (14.0-18.0); LYMPHOCYTES # (AUTO) 1.2 K/uL (1.0-5.5); LYMPHOCYTES % (AUTO) 10.1 % (20.5-51.5); MEAN CORPUSCULAR HEMOGLOBIN 28 pg (27-31); MEAN CORPUSCULAR HGB CONC 32 % (32-36); MEAN CORPUSCULAR VOLUME 85 fL (79.0-98.0); MONOCYTES # (AUTO) 1.6 K/uL (0.0-1.0); MONOCYTES % (AUTO) 13.7 % (1.7-9.3); NEUTROPHILS # (AUTO) 8.5 K/uL (1.8-7.7); NEUTROPHILS % (AUTO) 72.5 % (40.0-70.0); PLATELET COUNT (AUTO) 503 K/uL (130-430); RED BLOOD CELL COUNT(AUTO) 3.22 MIL/uL (4.2-6.2); RED CELL DISTRIBUTION WIDTH 24.8 % (9.0-15.0); WHITE BLOOD COUNT (AUTO) 11.7 K/uL (4.8-10.8)
[2019-02-03 05:47] LABS: ALBUMIN 1.9 g/dL (3.4-4.8); CALCIUM 8.6 mg/dL (8.4-11.0); CREATININE 0.64 mg/dL (0.55-1.30); PHOSPHORUS 3.2 mg/dL (2.7-4.5); TOTAL BILIRUBIN 1.7 mg/dL (0.0-1.0)
[2019-02-03 05:51] LABS: POTASSIUM 2.7 mmol/L (3.5-5.1)
[2019-02-03] MEDS: METOPROLOL TARTRATE 50 MG TABLET NG SCH ×3 (06:00→22:00)
[2019-02-03] MEDS: HYDROCORTISONE SOD SUCC 100 MG/2 ML VIAL IVP SCH ×2 (06:04→18:00)
--- NOTE | 2019-02-03 07:10 | NUR ---
ENDORSEMENT Report given to MIRIAM Escobar using SBAR format and pt care was endorsed. No signs of acute distress or discomfort noted.
--- NOTE | 2019-02-03 07:45 | NUR ---
AM ASSESSMENT Pt received from night RN using SBAR. Pt laying in bed with eyes closed easily awaken to verbal stimuli. Pt is connected to vent with setting of AC 12, 550, $0%, PEEP 5 with oxygen saturation of 95 % on in room monitor. Bilateral soft wrist restraints with no obstruction to circulation. Hobson cath draining yellow urine to gravity.
--- NOTE | 2019-02-03 08:18 | NUR ---
SCRAP HOIST OPERATOR, DR DHALIWAL WAS CALLED RE: ABG RESULT. SPOKE TO VIRGIL.
[2019-02-03] MEDS: PANTOPRAZOLE SODIUM 40 MG/VIAL (PROTONIX) IVP SCH ×2 (08:53→20:15)
[2019-02-03] MEDS: CEFEPIME 1 GM in D5W 50 ML IV SCH ×2 (08:53→20:15)
[2019-02-03] MEDS: MULTIVITS,CA,MINERALS/IRON/FA 1 TABLET NG SCH (08:54)
[2019-02-03] MEDS: VITAMIN B COMPLEX 1 CAP/TAB NG SCH (08:54)
[2019-02-03] MEDS: CHOLECALCIFEROL (VITAMIN D3) 2,000 UNIT TABLET NG SCH (08:54)
[2019-02-03] MEDS: NAPH,MB-DB/K PH,MBDB 250 MG TAB PO SCH ×4 (08:54→20:16)
[2019-02-03] MEDS: LACTULOSE 20 GM/30 ML UDC NG SCH (08:54)
[2019-02-03] MEDS: ASCORBIC ACID 500 MG TABLET NG SCH (08:54)
[2019-02-03] MEDS: VALPROIC ACID ORAL SYRUP 250 MG/5 ML UDC NG SCH ×3 (08:56→20:15)
[2019-02-03] MEDS: DIGOXIN 0.5 MG/2 ML AMP IVP SCH (08:56)
[2019-02-03] MEDS: POTASSIUM CHLORIDE 20 MEQ/PKT PACKET NG SCH ×3 (08:57→20:17)
[2019-02-03] MEDS: metroNIDAZOLE 500 mg/NS 100 ML IV SCH ×2 (08:58→20:15)
[2019-02-03] MEDS ORDERED: POTASSIUM CHLORIDE 20 MEQ/PKT PACKET PO ONE (09:00)
[2019-02-03] MEDS: LOSARTAN POTASSIUM 50 MG TABLET (COZAAR) NG SCH (09:00)
--- NOTE | 2019-02-03 09:00 | NUR ---
VENT Pt switched to SIMV 10, PS10, TV550, Peep 5, 40%. Will continue to monitor pt tolerating setting change
[2019-02-03] MEDS: KCL 20 mEq in 100 mL (PREMIX) 100 ML IV SCH ×2 (09:38→11:28)
--- NOTE | 2019-02-03 11:00 | NUR ---
Isolation Dr. Escobedo called and informed the charge nurse that pt is placed of isolation of MRSA of sputum, isolation cart in front of room and contact sign adhered to entrance above isolation cart
[2019-02-03] MEDS: QUEtiapine FUMARATE 100 MG TABLET NG SCH ×2 (11:28→17:58)
[2019-02-03] MEDS: MORPHINE 2 MG/ML INJ. SYRINGE IVP PRN (13:43)
--- NOTE | 2019-02-03 14:36 | NUR ---
MD Dr. Pelaez called back, informed of pts blood pressure. New orders received.
--- NOTE | 2019-02-03 14:37 | NUR ---
ATTENDING MD DR KEARNS WAS CALLED, RE DROPPING /LOW BP. SPOKE TO YUNG
[2019-02-03] MEDS ORDERED: NOREPINEPHRINE 4 MG/4 ML VIAL IV ONE (14:53)
[2019-02-03] MEDS: NOREPINEPHRINE BITARTRATE 4 MG in NS 246 ML IV PRN (14:58)
[2019-02-03] MEDS: 0.45% NACL 1,000 ML IV SCH (15:49)
--- NOTE | 2019-02-03 19:20 | NUR ---
RECEIVED NURSING REPORT FROM DAY SHIFT CEASAR Mederos
--- NOTE | 2019-02-03 19:20 | NUR ---
RECEIVED NURSING REPORT FROM DAY SHIFT CEASAR Mederos Addendum: 02/04/19 at 0670 by Samm Castro RN DUPLICATE
--- NOTE | 2019-02-03 19:28 | NUR ---
Closing Notes Pt endorsed to night RN using SBAR.
--- NOTE | 2019-02-03 20:45 | NUR ---
B.P 83/33 MMHG, INCREASE LEVOPHED DRIP TO 6 MCG/MIN
[2019-02-04] VITALS (32 sets, daily range): BP systolic 82–156
[2019-02-04] MEDS: IPRATROPIUM/ALBUTEROL SULFATE 3 ML AMPUL.NEB (DUONEB) INH SCH ×4 (00:53→19:22)
[2019-02-04] MEDS: LORazepam 2 MG/ML VIAL IVP PRN ×5 (03:01→19:55)
[2019-02-04] MEDS: VANCOMYCIN HCL 1,500 MG in NS 250 ML IV SCH ×2 (03:01→18:10)
[2019-02-04] MEDS: HYDROCORTISONE SOD SUCC 100 MG/2 ML VIAL IVP SCH ×2 (06:00→18:15)
[2019-02-04] MEDS: METOPROLOL TARTRATE 50 MG TABLET NG SCH ×2 (06:00→14:00)
--- NOTE | 2019-02-04 06:00 | NUR ---
AT 0600 A.M TITRATED OFF LEVOPHED DRIP, B.P 124/62 MMHG, H.R 90, O2 SAT. 98%, KEEP CLOSE MONITOR
[2019-02-04 06:06] LABS: BASOPHILS % (AUTO) 0.4 % (0.0-2.0); EOSINOPHILS # (AUTO) 0.1 K/uL (0.0-0.4); EOSINOPHILS % (AUTO) 0.9 % (0.0-4.0); HEMATOCRIT 27.4 % (36-54); HEMOGLOBIN 9.2 g/dL (14.0-18.0); LYMPHOCYTES # (AUTO) 1.2 K/uL (1.0-5.5); LYMPHOCYTES % (AUTO) 11.4 % (20.5-51.5); MEAN CORPUSCULAR HEMOGLOBIN 28 pg (27-31); MEAN CORPUSCULAR HGB CONC 34 % (32-36); MEAN CORPUSCULAR VOLUME 85 fL (79.0-98.0); MONOCYTES % (AUTO) 19.4 % (1.7-9.3); NEUTROPHILS % (AUTO) 67.9 % (40.0-70.0); PLATELET COUNT (AUTO) 509 K/uL (130-430); RED BLOOD CELL COUNT(AUTO) 3.22 MIL/uL (4.2-6.2); RED CELL DISTRIBUTION WIDTH 24.6 % (9.0-15.0); WHITE BLOOD COUNT (AUTO) 10.3 K/uL (4.8-10.8)
[2019-02-04 06:21] LABS: INR 1.4 (0.80-1.20); PROTHROMBIN TIME 14.1 SECS (9.5-12.5)
[2019-02-04 06:37] LABS: CALCIUM 8.7 mg/dL (8.4-11.0); CHLORIDE 101 mmol/L (98-107); CREATININE 0.59 mg/dL (0.55-1.30); GLUCOSE 120 mg/dL (70-99); SODIUM SERUM 138 mmol/L (136-145); TOTAL BILIRUBIN 1.4 mg/dL (0.0-1.0); UREA NITROGEN, BLOOD 17 mg/dL (8-21)
[2019-02-04 06:38] LABS: ALANINE AMINOTRANSFERASE 28 U/L (12-78); ALBUMIN 1.7 g/dL (3.4-4.8); ASPARTATE AMINOTRANSFERASE 20 U/L (10-37); PHOSPHORUS 3.5 mg/dL (2.7-4.5)
[2019-02-04 06:48] LABS: POTASSIUM 2.9 mmol/L (3.5-5.1)
[2019-02-04 06:49] LABS: ANION GAP < 3 (5-15); GFR AFRICAN AMERICAN 189 mL/min (>90)
--- NOTE | 2019-02-04 07:18 | NUR ---
GIVE COMPLETE NURSING REPORT TO DAY SHIFT CEASAR Mederos
[2019-02-04] MEDS ORDERED: KCL 20 mEq in 100 mL (PREMIX) 100 ML IV ONE (07:30)
--- NOTE | 2019-02-04 07:30 | NUR ---
AM ASSESSMENT Pt received from night RN using SBAR. Pt laying in bed with eyes closed, pt is able to open eyes to tactile stimuli and occasional spontaneous eye opening. Pt connected to vent with even and symmetrical rise and fall of chest. Hobson cath draining yellow urine to gravity. Bilateral wrist restraints. Bed in lowest position with head of bed greater than 30 degrees. Isolation precautions observed.
[2019-02-04] MEDS: LACTULOSE 20 GM/30 ML UDC NG SCH (07:59)
[2019-02-04] MEDS: POTASSIUM CHLORIDE 20 MEQ/PKT PACKET NG SCH ×3 (08:02→20:41)
[2019-02-04] MEDS: VITAMIN B COMPLEX 1 CAP/TAB NG SCH (08:02)
[2019-02-04] MEDS: LOSARTAN POTASSIUM 50 MG TABLET (COZAAR) NG SCH (08:02)
[2019-02-04] MEDS: NAPH,MB-DB/K PH,MBDB 250 MG TAB PO SCH ×4 (08:03→20:41)
[2019-02-04] MEDS: ASCORBIC ACID 500 MG TABLET NG SCH (08:03)
[2019-02-04] MEDS: MULTIVITS,CA,MINERALS/IRON/FA 1 TABLET NG SCH (08:03)
[2019-02-04] MEDS: DIGOXIN 0.5 MG/2 ML AMP IVP SCH (08:04)
[2019-02-04] MEDS: PANTOPRAZOLE SODIUM 40 MG/VIAL (PROTONIX) IVP SCH ×2 (08:05→20:39)
[2019-02-04] MEDS: CEFEPIME 1 GM in D5W 50 ML IV SCH ×2 (08:09→20:06)
[2019-02-04] MEDS: metroNIDAZOLE 500 mg/NS 100 ML IV SCH ×2 (08:38→20:41)
[2019-02-04] MEDS: VALPROIC ACID ORAL SYRUP 250 MG/5 ML UDC NG SCH ×3 (08:41→20:40)
[2019-02-04] MEDS: CHOLECALCIFEROL (VITAMIN D3) 2,000 UNIT TABLET NG SCH (08:41)
[2019-02-04] MEDS ORDERED: acetaZOLAMIDE 250 MG TABLET (DIAMOX) PO ONE (10:00)
--- NOTE | 2019-02-04 10:30 | NUR ---
RT NOTES- SIMV 6 CHANGED VENT TO SIMV [address] DHALIWAL. RN MARIAH/CHESTER MADE AWARE. WILL CONTINUE MONITORING.
--- NOTE | 2019-02-04 11:10 | NUR ---
SIMV Pt unable to tolerate SIMV of 6, RT put pt back on SIMV10, will continue to monitor pt if tolerating.
--- NOTE | 2019-02-04 11:10 | NUR ---
RT NOTES- SIMV 10 DUE TO INCREASED RESPIRATORY RATES (rr>40bpm) CHANGED PT BACK TO SIMV 10. MIRIAM LEMUS MADE AWARE. WILL CONTINUE MONITORING.
[2019-02-04] MEDS: QUEtiapine FUMARATE 100 MG TABLET NG SCH ×2 (12:25→18:15)
[2019-02-04] MEDS ORDERED: NOREPINEPHRINE 4 MG/4 ML VIAL IV ONE (14:04)
[2019-02-04] MEDS: NOREPINEPHRINE BITARTRATE 4 MG in NS 246 ML IV PRN (14:07)
--- NOTE | 2019-02-04 14:16 | NUR ---
Family Pt's Ex- and son at bedside visiting with pt. Family educated on isolation precautions observed adhering to them .
--- NOTE | 2019-02-04 14:49 | NUR ---
Durbin Cath Pt observed to have urine leaking, aspirated balloon of durbin and balloon was no longer in tack. Removed durbin cath and inserted a new durbin cath 40 cc of yellow urine flashback with immediate insertion. Durbin adhered to pt's leg.
[2019-02-04] MEDS: 0.45% NACL 1,000 ML IV SCH (15:25)
--- NOTE | 2019-02-04 16:33 | NUR ---
Kosher Butcher. MIRIAM Judd is asking for Dr. Gillespie if WASHHOUSE WORKER can find out who is the next of kin for pt. WASHHOUSE WORKER called Ex- Ailyn, no answer. WASHHOUSE WORKER called pt. father Dutch and Holly on speaker phone stated pt. and Ailyn are still but have been for 10, 11,12 maybe more years. WASHHOUSE WORKER called admin. Peters to see if she should consult with legal because pt. and Ailyn have been for so long, is Ailyn still the next of kin. WASHHOUSE WORKER tried to call Lorraine 3 times today. WASHHOUSE WORKER met with family members including pts. father and fathers , Ailyn, and pt.s son. They are waiting to speak to Dr. Gillespie and are disappointed that has not returned any of their phone calls. After speaking to they may choose to adjust the Full Code status. hooker laster will call Ailyn once gets in today. WASHHOUSE WORKER will remain available as needed. Addendum: 02/04/19 at 1704 by Erica Elias WASHHOUSE WORKER Kosher Butcher follow up . WASHHOUSE WORKER saw and notified him that the Pts. family was waiting to speak to him. stated he would go to see the family WASHHOUSE WORKER spoke to Rn. Judd who stated Dr. Gillespie brought Ailyn back and is now speaking to Dr. Garcia and will then speak to Dr. Gillespie who is examining pt. Addendum: 02/05/19 at 1104 by Erica Elias WASHHOUSE WORKER WASHHOUSE WORKER was able to speak to admin. Peters who stated the decision maker could be the , Shannen Grajeda. It appears Shannen would be the 1st person to contact and the pts. father Dutch Seymour . would be able to assist in contacting Shannen via text. The family met yesterday and it appears all parties are working together to make decisions on behalf of pt. Present yesterday were pts. , pts. dad and dads , pts. son and son's girlfriend.
--- NOTE | 2019-02-04 17:05 | NUR ---
Family Dr. Pelaez speaking to pts family regarding update on pts status
[2019-02-04] MEDS: DILTIAZEM HCL 60 MG TABLET PO SCH (18:17)
[2019-02-04] MEDS ORDERED: MORPHINE 4 MG/ML INJ. SYRINGE IVP PRN (18:45)
[2019-02-04] MEDS ORDERED: MORPHINE 2 MG/ML INJ. SYRINGE IVP PRN (18:45)
[2019-02-04] MEDS ORDERED: ACETAMINOPHEN 325 MG TABLET PO PRN (18:45)
--- NOTE | 2019-02-04 19:15 | NUR ---
Closing Notes Pt endorsed to night RN using SBAR
--- NOTE | 2019-02-04 19:15 | NUR ---
AT 1913 P.M, RECEIVED NURSING REPORT FROM DAY VINAY MCDONOUGH R.N
[2019-02-04] MEDS: DIPHENHYDRAMINE INJ 50 MG/ML VIAL IVP PRN (20:39)
[2019-02-04] MEDS: acetaZOLAMIDE 250 MG TABLET (DIAMOX) PO SCH (20:40)
[2019-02-04] MEDS: HALOPERIDOL LACTATE 5 MG/ML VIAL IM PRN (20:40)
[2019-02-05] VITALS (33 sets, daily range): BP systolic 73–154
[2019-02-05] MEDS: IPRATROPIUM/ALBUTEROL SULFATE 3 ML AMPUL.NEB (DUONEB) INH SCH ×4 (00:57→19:34)
[2019-02-05] MEDS: LORazepam 2 MG/ML VIAL IVP PRN ×7 (02:05→21:56)
[2019-02-05] MEDS: VANCOMYCIN HCL 1,500 MG in NS 250 ML IV SCH ×2 (03:29→16:35)
[2019-02-05] MEDS: DILTIAZEM HCL 60 MG TABLET PO SCH ×4 (05:39→18:00)
--- NOTE | 2019-02-05 05:40 | NUR ---
CHG BATH DONE
[2019-02-05 06:10] LABS: BASOPHILS % (AUTO) 0.5 % (0.0-2.0); EOSINOPHILS # (AUTO) 0.1 K/uL (0.0-0.4); EOSINOPHILS % (AUTO) 1.3 % (0.0-4.0); HEMATOCRIT 25.8 % (36-54); HEMOGLOBIN 8.5 g/dL (14.0-18.0); LYMPHOCYTES # (AUTO) 1.6 K/uL (1.0-5.5); LYMPHOCYTES % (AUTO) 16.5 % (20.5-51.5); MEAN CORPUSCULAR HEMOGLOBIN 29 pg (27-31); MEAN CORPUSCULAR HGB CONC 33 % (32-36); MEAN CORPUSCULAR VOLUME 86 fL (79.0-98.0); MONOCYTES % (AUTO) 19.7 % (1.7-9.3); NEUTROPHILS # (AUTO) 6.2 K/uL (1.8-7.7); PLATELET COUNT (AUTO) 474 K/uL (130-430); RED BLOOD CELL COUNT(AUTO) 2.99 MIL/uL (4.2-6.2); RED CELL DISTRIBUTION WIDTH 24.1 % (9.0-15.0)
[2019-02-05] MEDS: HYDROCORTISONE SOD SUCC 100 MG/2 ML VIAL IVP SCH ×2 (06:13→18:26)
[2019-02-05 06:24] LABS: ALANINE AMINOTRANSFERASE 24 U/L (12-78); ALBUMIN 1.8 g/dL (3.4-4.8); ASPARTATE AMINOTRANSFERASE 15 U/L (10-37); CALCIUM 8.7 mg/dL (8.4-11.0); CHLORIDE 104 mmol/L (98-107); CREATININE 0.58 mg/dL (0.55-1.30); GLUCOSE 111 mg/dL (70-99); SODIUM SERUM 138 mmol/L (136-145); TOTAL BILIRUBIN 1.1 mg/dL (0.0-1.0); UREA NITROGEN, BLOOD 18 mg/dL (8-21)
[2019-02-05 06:30] LABS: ANION GAP < 3 (5-15); GFR AFRICAN AMERICAN 192 mL/min (>90); POTASSIUM 2.9 mmol/L (3.5-5.1)
--- NOTE | 2019-02-05 06:55 | NUR ---
RECEIVED ABNORMAL LAB. RESULT : POTASSIUM 2.9, REPORTED TO Dr. KEARNS, ORDERED KEEP SAME ORDER KCL 40 MEQ VIA NG-TUBE TID
--- NOTE | 2019-02-05 07:10 | NUR ---
GIVE COMPLETE NURSING REPORT TO DAY SHIFT CEASAR Mederos
--- NOTE | 2019-02-05 07:15 | NUR ---
AM ASSESSMENT Pt received laying in bed with eyes closed. HOB greater than 35 degress. Bilateral soft wrist restraints. Hobson cath draining yellow urine to gravity. Even and symmetrical rise and fall of chest, pt connected to Vent. No signs of acute distress. Bilateral SCDs in place. Bed in lowest position with call light within reach.
[2019-02-05] MEDS ORDERED: POTASSIUM CHLORIDE 20 MEQ/PKT PACKET PO ONE (08:30)
[2019-02-05] MEDS: CEFEPIME 1 GM in D5W 50 ML IV SCH (08:59)
[2019-02-05] MEDS: PANTOPRAZOLE SODIUM 40 MG/VIAL (PROTONIX) IVP SCH ×2 (08:59→20:21)
[2019-02-05] MEDS: acetaZOLAMIDE 250 MG TABLET (DIAMOX) PO SCH ×2 (09:00→20:18)
[2019-02-05] MEDS: LACTULOSE 20 GM/30 ML UDC NG SCH (09:00)
[2019-02-05] MEDS: VALPROIC ACID ORAL SYRUP 250 MG/5 ML UDC NG SCH (09:00)
[2019-02-05] MEDS: FUROSEMIDE 20 MG/2 ML VIAL IVP SCH (09:00)
[2019-02-05] MEDS: POTASSIUM CHLORIDE 20 MEQ/PKT PACKET NG SCH ×3 (09:01→20:20)
[2019-02-05] MEDS: NAPH,MB-DB/K PH,MBDB 250 MG TAB PO SCH ×4 (09:01→20:17)
[2019-02-05] MEDS: MULTIVITS,CA,MINERALS/IRON/FA 1 TABLET NG SCH (09:01)
[2019-02-05] MEDS: CHOLECALCIFEROL (VITAMIN D3) 2,000 UNIT TABLET NG SCH (09:02)
[2019-02-05] MEDS: ASCORBIC ACID 500 MG TABLET NG SCH (09:02)
[2019-02-05] MEDS: LOSARTAN POTASSIUM 50 MG TABLET (COZAAR) NG SCH ×2 (09:02→20:20)
[2019-02-05] MEDS: VITAMIN B COMPLEX 1 CAP/TAB NG SCH (09:02)
[2019-02-05] MEDS: DIGOXIN 0.5 MG/2 ML AMP IVP SCH (09:03)
--- NOTE | 2019-02-05 11:00 | NUR ---
CT Pt off the unit to CT scan. Pt connected to transport monitor.
--- NOTE | 2019-02-05 11:16 | NUR ---
CT Pt returned to unit from CT. Tolerated well. Connected to in room monitor system
--- NOTE | 2019-02-05 12:57 | NUR ---
Nutrition F/U RD reviewed pt's current EMR including diet Hx, physician notes, nursing notes, pertinent labs/meds/procedures, care trends and care activity. Current Nutrition Support: Vital AF 1.2 at 70ml/hr (goal rate) Free Water Flush: 100ml Q6H via NGT x 5 days Subjective information: Pt seen in bed, bilateral wrist restraints in place. EN support not infusing at time of visit earlier. Per RN report, pt had diarrhea earlier today, stool samples were submitted to laboratory, but was denied. RN also reported that pt was prescribed w/ lactulose but was not being administered. TF was being tolerated, w/ only 5cc of residual this morning. Per bed huddle discussion, plan today is to wean pt off the vent. Current EN regimen provides: 2016 kcal, 126 gm protein and 1762ml free water daily. Current EN regimen remains appropriate, as Vital AF is peptide-based and promotes GI tolerance. ESTIMATED NUTRITIONAL REQUIREMENTS CALORIES/DAY: 2192 kcal/day ([employer] CBW for critical illness) PROTEIN/DAY: 127-196 gm/day (1.3-2 gm/kg Adj IBW for obesity, COPD) FLUID/DAY: Per physician d/t Hx of CHF PES 1. Morbid Obesity r/t inability to access healthier food choices AEB possible consumption of high calorie food and beverage from fast food restaurants and convenient stores, homelessness and BMI 40 kg/m2. *no longer applicable 2. Inadequate nutrient intake r/t medication intake AEB PO intake not meeting 75% of estimated needs and nursing staff report. *ongoing 3. Unintentional wt loss related to possible lean muscle mass depletion as evidenced by possible 47#/15% wt change within 1 month. *ongoing 4. Inadequate EN support related to critical illness as evidenced by no currently infusing nutrition support. *resolved I: 1. Recommend continuing Vital AF 1.2 at 70 ml/hr (goal rate), Free Water Flush: 100 ml Q6h via NGT Provides: 2016 kcal, 126 gm protein and 1762ml free water daily. Meets: 92% of lower end of estimated calorie needs and 99% of lower end of estimated protein needs. M: Monitor tolerance to EN support w/ goal of pt meeting at least 85% of estimated nutritional needs, labs trending WNL, normal GI function, skin integrity/wt maintenance. E: High Risk; F/U within 2-3 days MCFP, [address]
[2019-02-05] MEDS: QUEtiapine FUMARATE 100 MG TABLET NG SCH (13:17)
--- NOTE | 2019-02-05 13:18 | NUR ---
Dietitian Recommendations Recommend continuing Vital AF 1.2 at 70 ml/hr (goal rate), Free Water Flush: 100 ml Q6h via NGT Provides: 2016 kcal, 126 gm protein and 1762ml free water daily. Meets: 92% of lower end of estimated calorie needs and 99% of lower end of estimated protein needs. Please see Nutrition F/U note for details. PRISON, RD
--- NOTE | 2019-02-05 13:30 | NUR ---
Dionte Gardiner Pt has had multiple episodes of watery diarrhea for more than X 2 days. informed, flexiseal provided to pt, pt tolerated well. Return of liquid light brown stool in tubing. Will continue to monitor.
--- NOTE | 2019-02-05 19:10 | NUR ---
PM ASSESSMENT Pt in bed with eyes closed resting comfortably. No signs of acute distress or discomfort noted. VSS with controlled afib seen on the monitor. Pt intubated with vent settings: SIMV 10, TV 550, FIO2 40%, PEEP of 5, and PS 10. Pt has a L AC 20g and LH 22g. Pt receiving NS tko. Pt has an NG tube noted to right nare infusing Vital AF 70 cc/hr. SCD's noted to pt's bilateral lower extremities. Hobson cath noted draining urine to gravity. Flexiseal noted. Bilateral wrist restraints noted. Bed is locked and in lowest positioned, call light within reach, will continue to monitor.
--- NOTE | 2019-02-05 19:19 | NUR ---
Closing Notes Pt endorsed to night RN using SBAR. No signs of acute distress.
[2019-02-05 20:49] LABS: INR 1.3 (0.80-1.20); PROTHROMBIN TIME 13.4 SECS (9.5-12.5)
--- NOTE | 2019-02-05 21:50 | NUR ---
PICC PICC RN at bedside at this time. TIME OUT performed at this time.
[2019-02-06] VITALS (36 sets, daily range): BP systolic 91–197
--- NOTE | 2019-02-06 00:30 | NUR ---
Pt in bed with eyes closed resting comfortably. No signs of acute distress or discomfort noted. Bed is locked and in lowest position, call light within reach, will cont to monitor.
[2019-02-06] MEDS: IPRATROPIUM/ALBUTEROL SULFATE 3 ML AMPUL.NEB (DUONEB) INH SCH ×4 (00:49→19:10)
[2019-02-06] MEDS: VANCOMYCIN HCL 1,500 MG in NS 250 ML IV SCH ×2 (03:15→16:09)
--- NOTE | 2019-02-06 03:45 | NUR ---
CHG CHG bath given to pt at this time. Pt tolerated well, will cont to monitor pt.
[2019-02-06 05:50] LABS: BASOPHILS # (AUTO) 0.1 K/uL (0.0-0.2); BASOPHILS % (AUTO) 0.5 % (0.0-2.0); EOSINOPHILS # (AUTO) 0.1 K/uL (0.0-0.4); EOSINOPHILS % (AUTO) 0.5 % (0.0-4.0); HEMATOCRIT 25.9 % (36-54); HEMOGLOBIN 8.4 g/dL (14.0-18.0); LYMPHOCYTES # (AUTO) 1.4 K/uL (1.0-5.5); LYMPHOCYTES % (AUTO) 13.4 % (20.5-51.5); MEAN CORPUSCULAR HEMOGLOBIN 28 pg (27-31); MEAN CORPUSCULAR HGB CONC 32 % (32-36); MEAN CORPUSCULAR VOLUME 87 fL (79.0-98.0); MONOCYTES # (AUTO) 1.8 K/uL (0.0-1.0); MONOCYTES % (AUTO) 16.8 % (1.7-9.3); NEUTROPHILS # (AUTO) 7.4 K/uL (1.8-7.7); NEUTROPHILS % (AUTO) 68.8 % (40.0-70.0); PLATELET COUNT (AUTO) 420 K/uL (130-430); RED BLOOD CELL COUNT(AUTO) 2.98 MIL/uL (4.2-6.2); RED CELL DISTRIBUTION WIDTH 24.9 % (9.0-15.0); WHITE BLOOD COUNT (AUTO) 10.8 K/uL (4.8-10.8)
[2019-02-06] MEDS: HYDROCORTISONE SOD SUCC 100 MG/2 ML VIAL IVP SCH ×2 (06:03→18:08)
[2019-02-06] MEDS: DILTIAZEM HCL 60 MG TABLET PO SCH ×5 (06:04→23:39)
[2019-02-06 06:05] LABS: INR 1.3 (0.80-1.20); PROTHROMBIN TIME 13.2 SECS (9.5-12.5)
[2019-02-06 06:15] LABS: ALBUMIN 1.9 g/dL (3.4-4.8); CALCIUM 8.9 mg/dL (8.4-11.0); CREATININE 0.54 mg/dL (0.55-1.30); PHOSPHORUS 3.2 mg/dL (2.7-4.5); POTASSIUM 3.3 mmol/L (3.5-5.1); TOTAL BILIRUBIN 1.1 mg/dL (0.0-1.0)
--- NOTE | 2019-02-06 07:10 | NUR ---
ENDORSEMENT Report given to MIRIAM Dubon using SBAR format and pt care was endorsed. No signs of acute distress or discomfort noted.
--- NOTE | 2019-02-06 07:15 | NUR ---
Opening Note Patienreceived sleeping @ this time with no signs of distress noted. Patient on media monitor and is on a ventilator with settings of SIMV 10, tidal volume 550, FiO2 40%, PEEP 5, and pressure support 10. Patient has a left hand 22 IV and a MARISELA PICC line patent, flushing well, and saline-locked. Patient has a right nare NGT infusing Vital AF 1.2 @ 70 ml/hr. Patient has a durbin catheter in place draining clear bacilio urine. Safety precautions enforced.
[2019-02-06] MEDS: LORazepam 2 MG/ML VIAL IVP PRN ×5 (08:12→23:40)
--- NOTE | 2019-02-06 08:20 | NUR ---
RT NOTES FIO2 to 35% per ABG result and titration order.
[2019-02-06] MEDS: VITAMIN B COMPLEX 1 CAP/TAB NG SCH (09:07)
[2019-02-06] MEDS: acetaZOLAMIDE 250 MG TABLET (DIAMOX) PO SCH (09:07)
[2019-02-06] MEDS: MULTIVITS,CA,MINERALS/IRON/FA 1 TABLET NG SCH (09:07)
[2019-02-06] MEDS: ASCORBIC ACID 500 MG TABLET NG SCH (09:07)
[2019-02-06] MEDS: LOSARTAN POTASSIUM 50 MG TABLET (COZAAR) NG SCH ×2 (09:08→20:14)
[2019-02-06] MEDS: FUROSEMIDE 20 MG/2 ML VIAL IVP SCH (09:08)
[2019-02-06] MEDS: PANTOPRAZOLE SODIUM 40 MG/VIAL (PROTONIX) IVP SCH ×2 (09:08→20:14)
[2019-02-06] MEDS: NAPH,MB-DB/K PH,MBDB 250 MG TAB PO SCH ×4 (09:09→20:13)
[2019-02-06] MEDS: DIGOXIN 0.5 MG/2 ML AMP IVP SCH (09:09)
[2019-02-06] MEDS: CHOLECALCIFEROL (VITAMIN D3) 2,000 UNIT TABLET NG SCH (09:09)
[2019-02-06] MEDS: POTASSIUM CHLORIDE 20 MEQ/PKT PACKET NG SCH ×4 (09:10→20:14)
--- NOTE | 2019-02-06 09:30 | NUR ---
MD Rounds Dr. Garcia @ bedside to see patient. New orders received and carried out.
--- NOTE | 2019-02-06 09:50 | NUR ---
RT NOTED Vent settings to SIMV [address] Gacria's order, due to worsen tachypnea, settings back to SIMV 10, per outstanding order.
--- NOTE | 2019-02-06 10:50 | NUR ---
MD Rounds Dr. Ray @ bedside to see patient. New orders received and carried out.
[2019-02-06] MEDS: cefTRIAXone 1 GM in D5W 50 ML IV SCH (10:57)
[2019-02-06] MEDS: HALOPERIDOL LACTATE 5 MG/ML VIAL IM PRN (13:36)
[2019-02-06] MEDS: DIPHENHYDRAMINE INJ 50 MG/ML VIAL IVP PRN (13:37)
--- NOTE | 2019-02-06 13:42 | NUR ---
Haldol/Benadryl Observed PT restless, kicking base of bed and fighting against the vent. Haldol and benadryl administered per Rx.
--- NOTE | 2019-02-06 16:30 | NUR ---
MD Rounds Dr. Pelaez @ bedside. New orders received and carried out.
[2019-02-06] MEDS: MORPHINE 2 MG/ML INJ. SYRINGE IVP PRN (17:03)
--- NOTE | 2019-02-06 19:10 | NUR ---
PM ASSESSMENT Pt in bed with eyes closed resting comfortably. No signs of acute distress or discomfort noted. VSS with controlled afib seen on the monitor. Pt intubated with vent settings: SIMV 10, TV 550, FIO2 35%, PEEP of 5, and PS 10. Pt has MARISELA PICC and LH 22g. Pt receiving NS TKO. Pt has an NG tube noted to right nare infusing Vital AF 70 cc/hr. SCD's noted to pt's bilateral lower extremities. Hobson cath noted draining urine to gravity. Flexiseal noted. Bilateral wrist restraints noted. Bed is locked and in lowest positioned, call light within reach, will continue to monitor.
--- NOTE | 2019-02-06 19:10 | NUR ---
Closing Note Patient endorsed to security shift manager RN using SBAR format. Patient agitated and is actively kicking. Safety precautions enforced.
--- NOTE | 2019-02-06 19:15 | NUR ---
Pt diaphoretic, BP of 197/95 and respirations in the 40's at this time. RT called and is at bedside, will cont to monitor pt.
--- NOTE | 2019-02-06 19:20 | NUR ---
Pt's vent settings changed to AC 10, TV 550, FIO2 35%, and PEEP of 5 by RT. Pt tolerating changes well, will cont to monitor.
[2019-02-06] MEDS: QUEtiapine FUMARATE 100 MG TABLET GT SCH (20:13)
--- NOTE | 2019-02-06 20:15 | NUR ---
Dr. Garcia called and notified about vent settings changed. Will cont to monitor pt.
--- NOTE | 2019-02-06 23:40 | NUR ---
Pt restless at this time, kicking the bed. Administered 1mg Ativan IVP per MD order. Pt tolerated medication well, will cont to monitor pt.
[2019-02-07] VITALS (33 sets, daily range): BP systolic 93–177
[2019-02-07] MEDS: IPRATROPIUM/ALBUTEROL SULFATE 3 ML AMPUL.NEB (DUONEB) INH SCH ×4 (00:45→20:34)
[2019-02-07] MEDS: VANCOMYCIN HCL 1,500 MG in NS 250 ML IV SCH ×2 (03:31→16:04)
[2019-02-07] MEDS: LORazepam 2 MG/ML VIAL IVP PRN ×4 (03:32→18:03)
--- NOTE | 2019-02-07 03:45 | NUR ---
CHG CHG bath given to pt at this time. Pt tolerated well, will cont to monitor pt.
[2019-02-07 05:32] LABS: BASOPHILS # (AUTO) 0.1 K/uL (0.0-0.2); BASOPHILS % (AUTO) 1.2 % (0.0-2.0); EOSINOPHILS # (AUTO) 0.1 K/uL (0.0-0.4); EOSINOPHILS % (AUTO) 0.5 % (0.0-4.0); HEMATOCRIT 25.8 % (36-54); HEMOGLOBIN 8.3 g/dL (14.0-18.0); LYMPHOCYTES # (AUTO) 1.6 K/uL (1.0-5.5); LYMPHOCYTES % (AUTO) 14.9 % (20.5-51.5); MEAN CORPUSCULAR HEMOGLOBIN 28 pg (27-31); MEAN CORPUSCULAR HGB CONC 32 % (32-36); MEAN CORPUSCULAR VOLUME 86 fL (79.0-98.0); MONOCYTES # (AUTO) 1.9 K/uL (0.0-1.0); MONOCYTES % (AUTO) 17.5 % (1.7-9.3); NEUTROPHILS # (AUTO) 7.3 K/uL (1.8-7.7); NEUTROPHILS % (AUTO) 65.9 % (40.0-70.0); PLATELET COUNT (AUTO) 374 K/uL (130-430); RED CELL DISTRIBUTION WIDTH 24.4 % (9.0-15.0)
[2019-02-07 05:56] LABS: CREATININE 0.59 mg/dL (0.55-1.30); POTASSIUM 3.3 mmol/L (3.5-5.1); TOTAL BILIRUBIN 1.1 mg/dL (0.0-1.0)
[2019-02-07] MEDS: DILTIAZEM HCL 60 MG TABLET PO SCH ×4 (06:02→23:33)
[2019-02-07] MEDS: HYDROCORTISONE SOD SUCC 100 MG/2 ML VIAL IVP SCH ×2 (06:03→18:03)
--- NOTE | 2019-02-07 07:05 | NUR ---
ENDORSEMENT Report given to oncoming RN and pt care was endorsed. No signs of acute distress or discomfort noted.
--- NOTE | 2019-02-07 07:15 | NUR ---
Opening Note Patient received sleeping in bed @ this time, no signs of distress noted. Patient on quality assurance monitor final with A-fib. Patient on ventilator with settings of AC 10, tidal volume 550, FiO2 35%, and PEEP of 5. Patient has a MARISELA PICC patent and flushing well. Patient has a right nare NGT infusing Vital AF 1.2 @ 70 ml/hr. Patient has a durbin catheter in place draining yellow urine. Patient also has a flexiseal in place. Safety precautions enforced.
[2019-02-07] MEDS: DIGOXIN 0.5 MG/2 ML AMP IVP SCH (08:15)
[2019-02-07] MEDS: POTASSIUM CHLORIDE 20 MEQ/PKT PACKET NG SCH ×4 (08:15→21:31)
[2019-02-07] MEDS: cefTRIAXone 1 GM in D5W 50 ML IV SCH (08:15)
[2019-02-07] MEDS: VITAMIN B COMPLEX 1 CAP/TAB NG SCH (08:16)
[2019-02-07] MEDS: QUEtiapine FUMARATE 100 MG TABLET GT SCH ×3 (08:16→21:30)
[2019-02-07] MEDS: NAPH,MB-DB/K PH,MBDB 250 MG TAB PO SCH ×4 (08:16→21:32)
[2019-02-07] MEDS: PANTOPRAZOLE SODIUM 40 MG/VIAL (PROTONIX) IVP SCH ×2 (08:16→21:30)
[2019-02-07] MEDS: FUROSEMIDE 20 MG/2 ML VIAL IVP SCH (08:16)
[2019-02-07] MEDS: MULTIVITS,CA,MINERALS/IRON/FA 1 TABLET NG SCH (08:17)
[2019-02-07] MEDS: LOSARTAN POTASSIUM 50 MG TABLET (COZAAR) NG SCH ×2 (08:17→21:30)
[2019-02-07] MEDS: ASCORBIC ACID 500 MG TABLET NG SCH (08:17)
[2019-02-07] MEDS: CHOLECALCIFEROL (VITAMIN D3) 2,000 UNIT TABLET NG SCH (08:17)
[2019-02-07] MEDS: ACETAMINOPHEN 650 MG/20.3 ML UDC NG PRN (08:18)
--- NOTE | 2019-02-07 08:30 | NUR ---
Patient with temperature of 100.9. Ice packs applied and tylenol given as ordered.
--- NOTE | 2019-02-07 09:00 | NUR ---
RN Rounds Patient with SBP in the 80s and is tachypneic. Patient noted to have uncontrolled a-fib with HR between 110-115. Patient lethargic but is arousable to tactile stimuli. Patient repositioned, blood pressure increased to 109/53. Monitoring in place.
--- NOTE | 2019-02-07 09:06 | NUR ---
MD Rounds Dr. Medina @ bedside to see patient. No new orders received.
--- NOTE | 2019-02-07 10:03 | NUR ---
Paged Dr. Cory palomino. Spoke with
--- NOTE | 2019-02-07 12:30 | NUR ---
MD Rounds Dr. Pelaez @ bedside. No new orders received.
--- NOTE | 2019-02-07 13:00 | NUR ---
RN Update Patient agitated and actively kicking @ this time. Ativan given as prescribed.
[2019-02-07] MEDS: MORPHINE 2 MG/ML INJ. SYRINGE IVP PRN ×2 (13:53→16:05)
--- NOTE | 2019-02-07 14:00 | NUR ---
MD Rounds Dr. Garcia @ bedside. No new orders received.
--- NOTE | 2019-02-07 14:15 | NUR ---
Plan of Care Update Dr. Garcia called and left message with patient's Shannen. Dr. Garcia also placed call to Niko's father and spoke with him regarding plan of care. Per Dr. Garcia, family will discuss plan amongst each other and come up with a decision by Monday.
--- NOTE | 2019-02-07 15:00 | NUR ---
Plan of Care Updates Patient's Shannen returned call to unit. Updated Shannen on plan of care, Shannen states, "You can discuss with Niko's parents for plan of care. I don't want updates right now."
--- NOTE | 2019-02-07 19:17 | NUR ---
Closing Note Patient endorsed to awake overnight monitor RN using SBAR format. Patient sleeping @ this time. No signs of distress noted.
--- NOTE | 2019-02-07 20:00 | NUR ---
ORALLY INTUBATED. RESPONSIVE TO TACTILE AND NOXIOUS STIMULI. SUCTIONED ETT WITH MOD AMOUNT OF THIN WHITE MUCUS OBTAINED. ORAL CARE GIVEN. NGT FEEDING THRU RIGHT NARES WITH VITAL AF 1.2 INFUSING AT 70CC/HR. RESIDUAL CHECK 0. BILATERAL SOFT WRIST RESTRAINTS ON FOR SAFETY. RAMOS CATH APTENT DRAINING CLEAR IVON URINE TO GRAVITY. PARKER SCD'S IN PLACE. FLEXISEAL IN PLACE WITH SCANT LIQUID LBM NOTED. AFIB. CONTACT ISOLATION OBSERVED.
--- NOTE | 2019-02-07 22:00 | NUR ---
SOMNOLENT. SUCTIONED. HS CARE. TURNED.
[2019-02-08] VITALS (36 sets, daily range): BP systolic 115–182
--- NOTE | 2019-02-08 | NUR ---
BP LABILE. EASILY AROUSABLE. SUCTIONED WITH SAME RESULTS. ORAL CARE GIVEN. RESIDUAL CHECK 20. NGT FLUSHED WITH 100CC H2O. PULSES PALPABLE.
[2019-02-08] MEDS: IPRATROPIUM/ALBUTEROL SULFATE 3 ML AMPUL.NEB (DUONEB) INH SCH ×4 (01:44→20:15)
--- NOTE | 2019-02-08 02:00 | NUR ---
DOZES ON AND OFF. RESTLESS AT TIMES. THRASHES LEGS.
[2019-02-08] MEDS: VANCOMYCIN HCL 1,500 MG in NS 250 ML IV SCH ×2 (03:37→16:32)
--- NOTE | 2019-02-08 04:00 | NUR ---
AWAKE. SUCTIONED. ORAL CARE GIVEN. THRASHES LEGS. FLEXISEAL DISLODGED. CLEANED. JOSE LUIS-CARE RENDERED. CHG BATH GIVEN. JOSE LUIS-CARE, RAMOS CARE, BACK CARE, SKIN CARE DONE. COMPLETE LINEN CHANGE. DOES NOT ASSIST WITH TURNING. ARINA PROC WELL. TYLENOL GR 10 NGT GIVEN FOR TEMP 101.7, TEMPORAL ARTERY SCAN.
[2019-02-08] MEDS: ACETAMINOPHEN 650 MG/20.3 ML UDC NG PRN ×3 (04:22→20:38)
[2019-02-08] MEDS: HYDROCORTISONE SOD SUCC 100 MG/2 ML VIAL IVP SCH (05:55)
[2019-02-08] MEDS: DILTIAZEM HCL 60 MG TABLET PO SCH ×4 (05:57→23:15)
--- NOTE | 2019-02-08 06:00 | NUR ---
TEMP 100.1, TEMPORAL ARTERY SCAN. UO GOOD. PULSES PALPABLE. SUCTIONED AND TURNED Q2 HRS AND PRN. NGT FLUSHED WITH 100CC H2O. REMAINS IN GUARDED CONDITION.
[2019-02-08 06:59] LABS: ALBUMIN 2.3 g/dL (3.4-4.8); CALCIUM 8.8 mg/dL (8.4-11.0); CREATININE 0.58 mg/dL (0.55-1.30); PHOSPHORUS 4.6 mg/dL (2.7-4.5); TOTAL BILIRUBIN 1.1 mg/dL (0.0-1.0)
--- NOTE | 2019-02-08 07:30 | NUR ---
Opening Note Received plan of care via sbar from endorsing nurse Abelardo RN. Completed patient round. Patient did not present any signs of acute distress. All safety measures met.
[2019-02-08 07:32] LABS: HEMATOCRIT 25.8 % (36-54); HEMOGLOBIN 8.5 g/dL (14.0-18.0); MEAN CORPUSCULAR HEMOGLOBIN 29 pg (27-31); MEAN CORPUSCULAR HGB CONC 33 % (32-36); MEAN CORPUSCULAR VOLUME 88 fL (79.0-98.0); PLATELET COUNT (AUTO) 341 K/uL (130-430); RED BLOOD CELL COUNT(AUTO) 2.94 MIL/uL (4.2-6.2); RED CELL DISTRIBUTION WIDTH 25.3 % (9.0-15.0)
[2019-02-08 07:33] LABS: WHITE BLOOD COUNT (AUTO) 14.1 K/uL (4.8-10.8)
[2019-02-08 09:02] LABS: ATYPICAL LYMPHOCYTES % 0 % (0-0); BAND % (MANUAL) 2 % (0-6); BASOPHILS % (MANUAL) 0 % (0-2); EOSINOPHILS % (MANUAL) 3 % (0-7); LYMPHOCYTES % (MANUAL) 13 % (20-46); METAMYELOCYTES % 3 % (0-0); MYELOCYTES % 3 % (0-0)
[2019-02-08] MEDS: cefTRIAXone 1 GM in D5W 50 ML IV SCH (09:04)
[2019-02-08 09:05] LABS: MONOCYTES % (MANUAL) 18 % (0-11)
[2019-02-08] MEDS: DIGOXIN 0.5 MG/2 ML AMP IVP SCH (09:05)
[2019-02-08] MEDS: FUROSEMIDE 20 MG/2 ML VIAL IVP SCH (09:06)
[2019-02-08] MEDS: ASCORBIC ACID 500 MG TABLET NG SCH (09:07)
[2019-02-08] MEDS: PANTOPRAZOLE SODIUM 40 MG/VIAL (PROTONIX) IVP SCH ×2 (09:07→20:38)
[2019-02-08] MEDS: CHOLECALCIFEROL (VITAMIN D3) 2,000 UNIT TABLET NG SCH (09:07)
[2019-02-08] MEDS: POTASSIUM CHLORIDE 20 MEQ/PKT PACKET NG SCH ×2 (09:07→20:37)
[2019-02-08] MEDS: VITAMIN B COMPLEX 1 CAP/TAB NG SCH (09:07)
[2019-02-08] MEDS: LOSARTAN POTASSIUM 50 MG TABLET (COZAAR) NG SCH ×2 (09:08→20:39)
[2019-02-08] MEDS: MULTIVITS,CA,MINERALS/IRON/FA 1 TABLET NG SCH (09:08)
[2019-02-08] MEDS: QUEtiapine FUMARATE 100 MG TABLET GT SCH ×3 (09:08→20:39)
[2019-02-08] MEDS: NAPH,MB-DB/K PH,MBDB 250 MG TAB PO SCH ×2 (09:09→12:31)
--- NOTE | 2019-02-08 09:15 | NUR ---
Patient appears agitated. Patient is placing legs over bed rails. Tried to relax patient, reduce stimuli, and play soft music. Administered haldol and benedryl as PRN orders.
[2019-02-08] MEDS: HALOPERIDOL LACTATE 5 MG/ML VIAL IM PRN (09:27)
[2019-02-08] MEDS: DIPHENHYDRAMINE INJ 50 MG/ML VIAL IVP PRN (09:27)
[2019-02-08] MEDS: DILTIAZEM HCL 25 MG/5 ML VIAL IVP PRN (10:20)
[2019-02-08] MEDS ORDERED: LORazepam 2 MG/ML VIAL IVP PRN ×2 (11:45→13:30)
[2019-02-08] MEDS: MORPHINE 2 MG/ML INJ. SYRINGE IVP PRN ×3 (11:49→19:43)
[2019-02-08] MEDS ORDERED: MORPHINE 2 MG/ML INJ. SYRINGE ONE (11:56)
--- NOTE | 2019-02-08 14:32 | NUR ---
Nutrition F/U RD reviewed pt's current EMR including diet Hx, physician notes, nursing notes, pertinent labs/meds/procedures, care trends and care activity. Current Nutrition Support: Vital AF 1.2 at 70ml/hr (goal rate), Free Water Flush: 100ml Q6H via NGT Subjective information: Pt receiving care from nursing staff at time of RD visit. Per bed huddle discussion, rec trach to family, awaiting decision. Pt remains agitated, obtunded and sedated. Per RN notes, residual is 10ml this morning, tolerating EN regimen well. Per EMR, last BM 02/06/19 x4. Current EN regimen is not adequate and pt may benefit from PEG for salvage determiner nutrition support. ESTIMATED NUTRITIONAL REQUIREMENTS CALORIES/DAY: 2951 kcal/day ([employer] PSU 2003b for critical illness, on vent) PROTEIN/DAY: 127-196 gm/day (1.3-2 gm/kg Adj IBW for obesity, COPD) FLUID/DAY: Per physician d/t Hx of CHF PES 1. Morbid Obesity r/t inability to access healthier food choices AEB possible consumption of high calorie food and beverage from fast food restaurants and convenient stores, homelessness and BMI 40 kg/m2. *no longer applicable 2. Inadequate nutrient intake r/t medication intake AEB PO intake not meeting 75% of estimated needs and nursing staff report. *ongoing 3. Unintentional wt loss related to possible lean muscle mass depletion as evidenced by possible 47#/15% wt change within 1 month. *ongoing 4. Inadequate EN support related to critical illness as evidenced by no currently infusing nutrition support. *resolved 5. Inadequate EN support r/t increased caloric needs AEB current EN regimen provides <75% of estimated calorie needs. (*new) I: 1. Recommend continuing Vital AF 1.2 at 70 ml/hr (goal rate), Free Water Flush: 100 ml Q6h via NGT Provides: 2016 kcal, 126 gm protein and 1762ml free water daily. Meets: 92% of lower end of estimated calorie needs and 99% of lower end of estimated protein needs. 2. Recommend PEG for jail nutrition support, to better meet estimated needs. M: Monitor tolerance to EN support w/ goal of pt meeting at least 85% of estimated nutritional needs, labs trending WNL, normal GI function, skin integrity/wt maintenance. E: High Risk; F/U within 2-3 days PEPPER CHONG Addendum: 02/08/19 at [address] Current EN regimen meets: 68% of NEW estimated calorie needs (2951 kcal/day) based on Ve: 19.1 and Temperature 38.72 degress Celsius.
--- NOTE | 2019-02-08 14:39 | NUR ---
Dietitian Recommendation 1. Recommend continuing Vital AF 1.2 at 70 ml/hr (goal rate), Free Water Flush: 100 ml Q6h via NGT Provides: 2016 kcal, 126 gm protein and 1762ml free water daily. Meets: 92% of lower end of estimated calorie needs and 99% of lower end of estimated protein needs. 2. Recommend PEG for halfway nutrition support, to better meet estimated needs. Please see nutrition F/U note for details. ARLETTE, RD
[2019-02-08] MEDS: metroNIDAZOLE 250 mg/NS 50 ML IV SCH (18:34)
[2019-02-08] MEDS: LORazepam 2 MG/ML VIAL IVP PRN ×2 (18:35→23:15)
--- NOTE | 2019-02-08 19:30 | NUR ---
PM ASSESSMENT REPORT RECEIVED FROM TIFFANIE PINEDA. PT RECEIVED IN BED WITH EYES CLOSED, RESTLESS. VSS, NO S/S OF ACUTE DISTRESS NOTED. PT INTUBATED, VENT SETTINGS: AC 10, TV 550, FIO2 35%, PEEP 5. A-FIB ON MONITOR. MARISELA PICC IN PLACE INFUSING NS TKO. R NARE NGT IN PLACE RUNNING VITAL AF @ 70 CC/HR. BILATERAL SOFT WRIST RESTRAINTS IN PLACE, NO S/S OF INJURY NOTED. RAMOS CATH IN PLACE DRAINING YELLOW URINE TO GRAVITY. SCDs IN PLACE. CONTACT PRECAUTIONS OBSERVED. HOB ELEVATED, BED IN LOWEST POSITION, CALL LIGHT IN REACH. WILL CONTINUE TO MONITOR PT.
[2019-02-08] MEDS: NAPH,MB-DB/K PH,MBDB 250 MG TAB GT SCH (20:38)
--- NOTE | 2019-02-08 23:00 | NUR ---
CHG CHG BATH GIVEN AT THIS TIME. JOSE LUIS CARE DONE AND LINENS CHANGED. VSS, NO S/S OF ACUTE DISTRESS NOTED. PT TOLERATED WELL. WILL CONTINUE TO MONITOR PT.
--- NOTE | 2019-02-08 23:30 | NUR ---
ATIVAN PT RESTLESS AND KICKING AT THIS TIME. ATIVAN GIVEN PER ORDERS. WILL CONTINUE TO MONITOR PT.
[2019-02-09] VITALS (34 sets, daily range): BP systolic 90–155
[2019-02-09] MEDS: metroNIDAZOLE 250 mg/NS 50 ML IV SCH ×3 (01:19→17:52)
[2019-02-09] MEDS: IPRATROPIUM/ALBUTEROL SULFATE 3 ML AMPUL.NEB (DUONEB) INH SCH ×4 (01:38→19:47)
[2019-02-09] MEDS: VANCOMYCIN HCL 1,500 MG in NS 250 ML IV SCH ×2 (03:04→15:09)
[2019-02-09] MEDS: MORPHINE 2 MG/ML INJ. SYRINGE IVP PRN (05:12)
[2019-02-09] MEDS: DILTIAZEM HCL 60 MG TABLET PO SCH ×4 (05:12→23:13)
[2019-02-09 05:48] LABS: BASOPHILS # (AUTO) 0.1 K/uL (0.0-0.2); BASOPHILS % (AUTO) 0.8 % (0.0-2.0); EOSINOPHILS # (AUTO) 0.1 K/uL (0.0-0.4); EOSINOPHILS % (AUTO) 0.6 % (0.0-4.0); HEMOGLOBIN 8.2 g/dL (14.0-18.0); LYMPHOCYTES # (AUTO) 1.9 K/uL (1.0-5.5); LYMPHOCYTES % (AUTO) 15.4 % (20.5-51.5); MEAN CORPUSCULAR HEMOGLOBIN 29 pg (27-31); MEAN CORPUSCULAR HGB CONC 33 % (32-36); MEAN CORPUSCULAR VOLUME 87 fL (79.0-98.0); MONOCYTES # (AUTO) 1.7 K/uL (0.0-1.0); MONOCYTES % (AUTO) 14.2 % (1.7-9.3); NEUTROPHILS # (AUTO) 8.5 K/uL (1.8-7.7); PLATELET COUNT (AUTO) 308 K/uL (130-430); RED BLOOD CELL COUNT(AUTO) 2.88 MIL/uL (4.2-6.2); WHITE BLOOD COUNT (AUTO) 12.3 K/uL (4.8-10.8)
[2019-02-09 06:13] LABS: ALBUMIN 2.3 g/dL (3.4-4.8); CALCIUM 8.6 mg/dL (8.4-11.0); CREATININE 0.64 mg/dL (0.55-1.30); POTASSIUM 3.7 mmol/L (3.5-5.1); TOTAL BILIRUBIN 1.1 mg/dL (0.0-1.0)
--- NOTE | 2019-02-09 07:14 | NUR ---
ENDORSEMENT BEDSIDE REPORT GIVEN TO SCARLET PINEDA USING SBAR APPROACH.
--- NOTE | 2019-02-09 07:15 | NUR ---
Opening Note Patient in bed awake, agitated, and actively kicking. Patient on engine monitor with a-fib. Patient on vent with settings of AC 10, tidal volume 550, FiO2 35%, and PEEP 5. Patient has a MARISELA PICC patent and saline-locked. Patient has a right nare NGT infusing Vital AF 1.2 @ 70 ml/hr. Patient skin intact. Safety precautions enforced.
--- NOTE | 2019-02-09 07:50 | NUR ---
RT NOTES - SIMV 10 PT IS MORE AWAKE. EYES OPEN. LEGS KICKING. CHANGED VENT SETTING TO SIMV 10, PS10, +5, 35%FIO2. RN SCARLET MADE AWARE. WILL CONTINUE MONITORING.
[2019-02-09] MEDS: PANTOPRAZOLE SODIUM 40 MG/VIAL (PROTONIX) IVP SCH ×2 (08:12→20:13)
[2019-02-09] MEDS: cefTRIAXone 1 GM in D5W 50 ML IV SCH (08:12)
[2019-02-09] MEDS: HYDROCORTISONE SOD SUCC 100 MG/2 ML VIAL IVP SCH (08:12)
[2019-02-09] MEDS: POTASSIUM CHLORIDE 20 MEQ/PKT PACKET NG SCH ×2 (08:12→20:15)
[2019-02-09] MEDS: DIGOXIN 0.5 MG/2 ML AMP IVP SCH (08:13)
[2019-02-09] MEDS: ASCORBIC ACID 500 MG TABLET NG SCH (08:13)
[2019-02-09] MEDS: FUROSEMIDE 20 MG/2 ML VIAL IVP SCH (08:13)
[2019-02-09] MEDS: QUEtiapine FUMARATE 100 MG TABLET GT SCH ×3 (08:14→20:15)
[2019-02-09] MEDS: NAPH,MB-DB/K PH,MBDB 250 MG TAB GT SCH ×2 (08:14→20:15)
[2019-02-09] MEDS: LOSARTAN POTASSIUM 50 MG TABLET (COZAAR) NG SCH ×2 (08:14→20:20)
[2019-02-09] MEDS: VITAMIN B COMPLEX 1 CAP/TAB NG SCH (08:14)
[2019-02-09] MEDS: CHOLECALCIFEROL (VITAMIN D3) 2,000 UNIT TABLET NG SCH (08:14)
[2019-02-09] MEDS: MULTIVITS,CA,MINERALS/IRON/FA 1 TABLET NG SCH (08:15)
[2019-02-09] MEDS: LORazepam 2 MG/ML VIAL IVP PRN ×3 (08:19→20:13)
--- NOTE | 2019-02-09 09:00 | NUR ---
RT NOTES - CPAP PT ON CPAP TRIAL OF CPAP5, PS12, FIO2 35% PER DR. GERARD. RN SCARLET AWARE. WILL CONTINUE MONITORING.
--- NOTE | 2019-02-09 12:00 | NUR ---
RN Rounds Patient asleep but arousable @ this time. No signs of distress noted. Safety precautions enforced.
--- NOTE | 2019-02-09 19:15 | NUR ---
RECEIVED NURSING REPORT FROM FABIANO NOVAK R.N
--- NOTE | 2019-02-09 19:26 | NUR ---
Closing Note Endorsed patient to overnight cashier RN using SBAR format. No signs of distress noted @ this time.
[2019-02-09] MEDS: HALOPERIDOL LACTATE 5 MG/ML VIAL IM PRN (19:37)
[2019-02-09] MEDS: DIPHENHYDRAMINE INJ 50 MG/ML VIAL IVP PRN (19:38)
[2019-02-09] MEDS: ACETAMINOPHEN 650 MG/20.3 ML UDC NG PRN (20:19)
[2019-02-10] VITALS (29 sets, daily range): BP systolic 95–147
[2019-02-10] MEDS: MORPHINE 2 MG/ML INJ. SYRINGE IVP PRN ×4 (00:08→21:31)
[2019-02-10] MEDS: IPRATROPIUM/ALBUTEROL SULFATE 3 ML AMPUL.NEB (DUONEB) INH SCH ×4 (01:19→19:34)
[2019-02-10] MEDS: metroNIDAZOLE 250 mg/NS 50 ML IV SCH ×3 (02:08→17:33)
--- NOTE | 2019-02-10 03:00 | NUR ---
GIVE CHG BATH DONE, PATIENT HAD ONE TIME BOWEL MOVEMENT / LOOSE STOOL
[2019-02-10] MEDS: LORazepam 2 MG/ML VIAL IVP PRN ×4 (03:37→13:04)
[2019-02-10] MEDS: VANCOMYCIN HCL 1,500 MG in NS 250 ML IV SCH ×2 (03:38→15:43)
[2019-02-10] MEDS: DILTIAZEM HCL 60 MG TABLET PO SCH ×3 (05:58→17:33)
[2019-02-10 06:38] LABS: BASOPHILS # (AUTO) 0.1 K/uL (0.0-0.2); BASOPHILS % (AUTO) 1.1 % (0.0-2.0); EOSINOPHILS # (AUTO) 0.1 K/uL (0.0-0.4); EOSINOPHILS % (AUTO) 1.1 % (0.0-4.0); HEMATOCRIT 24.5 % (36-54); HEMOGLOBIN 7.8 g/dL (14.0-18.0); LYMPHOCYTES # (AUTO) 1.6 K/uL (1.0-5.5); LYMPHOCYTES % (AUTO) 14.1 % (20.5-51.5); MEAN CORPUSCULAR HEMOGLOBIN 28 pg (27-31); MEAN CORPUSCULAR HGB CONC 32 % (32-36); MEAN CORPUSCULAR VOLUME 87 fL (79.0-98.0); MONOCYTES # (AUTO) 1.7 K/uL (0.0-1.0); MONOCYTES % (AUTO) 14.9 % (1.7-9.3); NEUTROPHILS # (AUTO) 7.7 K/uL (1.8-7.7); NEUTROPHILS % (AUTO) 68.8 % (40.0-70.0); PLATELET COUNT (AUTO) 289 K/uL (130-430); RED BLOOD CELL COUNT(AUTO) 2.82 MIL/uL (4.2-6.2); RED CELL DISTRIBUTION WIDTH 24.4 % (9.0-15.0); WHITE BLOOD COUNT (AUTO) 11.2 K/uL (4.8-10.8)
[2019-02-10 06:49] LABS: INR 1.4 (0.80-1.20); PROTHROMBIN TIME 13.5 SECS (9.5-12.5)
--- NOTE | 2019-02-10 07:03 | NUR ---
GIVE COMPLETE NURSING REPORT TO DAY SHIFT SCARLET Mederos
[2019-02-10 07:08] LABS: ALBUMIN 2.1 g/dL (3.4-4.8); CREATININE 0.65 mg/dL (0.55-1.30); DIGOXIN 0.8 ng/mL (0.80-2.00); PHOSPHORUS 3.3 mg/dL (2.7-4.5); POTASSIUM 3.9 mmol/L (3.5-5.1); TOTAL BILIRUBIN 0.9 mg/dL (0.0-1.0)
--- NOTE | 2019-02-10 07:10 | NUR ---
Opening Note Patient sleeping @ this time with no signs of distress noted. Patient on cardiac catheterization technologist with A-fib. Patient on CPAP 5, pressure support 12, and FiO2 35% breathing evenly and unlabored. Patient has a MARISELA PICC patent and saline-locked. Patient has a right nare NGT infusing Vital AF 1.2 @ 70 ml/hr. Patient has a durbin catheter in place draining bacilio urine. Safety precautions in place.
[2019-02-10 07:43] LABS: CALCIUM 8.9 mg/dL (8.4-11.0)
[2019-02-10] MEDS: cefTRIAXone 1 GM in D5W 50 ML IV SCH (08:07)
[2019-02-10] MEDS: POTASSIUM CHLORIDE 20 MEQ/PKT PACKET NG SCH ×2 (08:08→21:32)
[2019-02-10] MEDS: ASCORBIC ACID 500 MG TABLET NG SCH (08:08)
[2019-02-10] MEDS: HYDROCORTISONE SOD SUCC 100 MG/2 ML VIAL IVP SCH (08:08)
[2019-02-10] MEDS: CHOLECALCIFEROL (VITAMIN D3) 2,000 UNIT TABLET NG SCH (08:09)
[2019-02-10] MEDS: LOSARTAN POTASSIUM 50 MG TABLET (COZAAR) NG SCH ×2 (08:09→21:32)
[2019-02-10] MEDS: NAPH,MB-DB/K PH,MBDB 250 MG TAB GT SCH ×2 (08:10→21:31)
[2019-02-10] MEDS: MULTIVITS,CA,MINERALS/IRON/FA 1 TABLET NG SCH (08:10)
[2019-02-10] MEDS: QUEtiapine FUMARATE 100 MG TABLET GT SCH ×3 (08:10→21:32)
[2019-02-10] MEDS: VITAMIN B COMPLEX 1 CAP/TAB NG SCH (08:10)
[2019-02-10] MEDS: PANTOPRAZOLE SODIUM 40 MG/VIAL (PROTONIX) IVP SCH ×2 (08:11→21:31)
[2019-02-10] MEDS: FUROSEMIDE 20 MG/2 ML VIAL IVP SCH (08:11)
--- NOTE | 2019-02-10 08:55 | NUR ---
MD Rounds Dr. Hodgson @ bedside to see patient. Orders received and carried out.
[2019-02-10] MEDS: DIGOXIN 0.5 MG/2 ML AMP IVP SCH (09:00)
--- NOTE | 2019-02-10 09:00 | NUR ---
RT NOTES - AC 12 PLACED PT ON AC 12, VT 500, PEEP5, 35%FIO2 PER DR. GERARD. RN SCRALET MADE AWARE. NO RESPIRATORY DISTRESS NOTED. WILL CONTINUE MONITORING.
--- NOTE | 2019-02-10 09:12 | NUR ---
MD Rounds Dr. Medina @ bedside to see patient. MD informed regarding patient's heart rate decreasing to the 40s. At this time, HR between 90s-100s. Patient stable and in no signs of distress.
--- NOTE | 2019-02-10 12:05 | NUR ---
MD Rounds Dr. Gonzalez @ bedside to see patient. No new orders received.
--- NOTE | 2019-02-10 18:20 | NUR ---
MD Rounds Dr. Pelaez to see patient. New orders received and carried out.
--- NOTE | 2019-02-10 19:36 | NUR ---
Closing Note Endorsed patient to hot plate plywood press feeder RN using SBAR format. Patient in no signs of distress @ this time.
--- NOTE | 2019-02-10 20:20 | NUR ---
RECEIVED NURSING REPORT FROM DOMONIQUE Mederos
--- NOTE | 2019-02-10 22:22 | NUR ---
AT 2155 P.M, START BLOOD TRANSFUSION P-RBC ONE UNIT, NO S/S OF ADVERSE REACTION AT THIS TIME
[2019-02-11] VITALS (31 sets, daily range): BP systolic 92–144
[2019-02-11] MEDS: DIPHENHYDRAMINE INJ 50 MG/ML VIAL IVP PRN (00:08)
[2019-02-11] MEDS: HALOPERIDOL LACTATE 5 MG/ML VIAL IM PRN (00:09)
--- NOTE | 2019-02-11 01:05 | NUR ---
AT 0100 A.M FINISHED BLOOD TRANSFUSION, NO S/S OF ADVERSE REACTION
[2019-02-11] MEDS: IPRATROPIUM/ALBUTEROL SULFATE 3 ML AMPUL.NEB (DUONEB) INH SCH ×4 (01:09→19:29)
[2019-02-11] MEDS: metroNIDAZOLE 250 mg/NS 50 ML IV SCH ×3 (01:41→18:26)
[2019-02-11] MEDS: LORazepam 2 MG/ML VIAL IVP PRN ×3 (03:13→15:23)
[2019-02-11] MEDS: VANCOMYCIN HCL 1,500 MG in NS 250 ML IV SCH ×2 (03:13→18:37)
--- NOTE | 2019-02-11 03:45 | NUR ---
PATIENT HAD ONE BOWEL MOVEMENT/LOOSE, GIVE CHG BATH DONE
[2019-02-11] MEDS: MORPHINE 2 MG/ML INJ. SYRINGE IVP PRN ×4 (04:04→21:22)
[2019-02-11] MEDS: DILTIAZEM HCL 60 MG TABLET PO SCH ×5 (05:12→23:11)
[2019-02-11 06:14] LABS: HEMATOCRIT 25.9 % (36-54); HEMOGLOBIN 8.5 g/dL (14.0-18.0); MEAN CORPUSCULAR HEMOGLOBIN 28 pg (27-31); MEAN CORPUSCULAR HGB CONC 33 % (32-36); MEAN CORPUSCULAR VOLUME 86 fL (79.0-98.0); PLATELET COUNT (AUTO) 275 K/uL (130-430); RED BLOOD CELL COUNT(AUTO) 3.01 MIL/uL (4.2-6.2); RED CELL DISTRIBUTION WIDTH 24.5 % (9.0-15.0)
--- NOTE | 2019-02-11 07:30 | NUR ---
Opening Note Received plan of care via sbar from endorsing nurse Kathryn PINEDA. Completed patient round. Patient is not presenting any signs of acute distress. Safety measures checked.
--- NOTE | 2019-02-11 07:32 | NUR ---
GIVE COMPLETE NURSING REPORT TO DAY SHIFT TIFFANIE Mederos
[2019-02-11 07:46] LABS: BAND % (MANUAL) 3 % (0-6); BASOPHILS % (MANUAL) 0 % (0-2); EOSINOPHILS % (MANUAL) 1 % (0-7); LYMPHOCYTES % (MANUAL) 9 % (20-46); METAMYELOCYTES % 2 % (0-0); MONOCYTES % (MANUAL) 9 % (0-11)
[2019-02-11] MEDS: cefTRIAXone 1 GM in D5W 50 ML IV SCH (09:12)
[2019-02-11] MEDS: DIGOXIN 0.5 MG/2 ML AMP IVP SCH (09:13)
[2019-02-11] MEDS: POTASSIUM CHLORIDE 20 MEQ/PKT PACKET NG SCH ×2 (09:14→21:23)
[2019-02-11] MEDS: NAPH,MB-DB/K PH,MBDB 250 MG TAB GT SCH ×2 (09:14→21:23)
[2019-02-11] MEDS: HYDROCORTISONE SOD SUCC 100 MG/2 ML VIAL IVP SCH (09:15)
[2019-02-11] MEDS: FUROSEMIDE 20 MG/2 ML VIAL IVP SCH (09:15)
[2019-02-11] MEDS: PANTOPRAZOLE SODIUM 40 MG/VIAL (PROTONIX) IVP SCH ×2 (09:16→21:22)
[2019-02-11] MEDS: MULTIVITS,CA,MINERALS/IRON/FA 1 TABLET NG SCH (09:17)
[2019-02-11] MEDS: VITAMIN B COMPLEX 1 CAP/TAB NG SCH (09:17)
[2019-02-11] MEDS: LOSARTAN POTASSIUM 50 MG TABLET (COZAAR) NG SCH ×2 (09:18→21:24)
[2019-02-11] MEDS: CHOLECALCIFEROL (VITAMIN D3) 2,000 UNIT TABLET NG SCH (09:18)
[2019-02-11] MEDS: ASCORBIC ACID 500 MG TABLET NG SCH (09:18)
[2019-02-11] MEDS: QUEtiapine FUMARATE 100 MG TABLET GT SCH ×3 (09:19→21:23)
--- NOTE | 2019-02-11 13:00 | NUR ---
Patient noted to have respiratory distress. PT is using accessory muscles and is tachypneic. Vitals HR 136, Resp 44, BP 141/112, O2 at 96. Called RT to provide assistance to change vent settings back to AC 12.
--- NOTE | 2019-02-11 13:30 | NUR ---
Patient was placed back to AC 12. Patient vitals is HR 118, Res 24, O2 98, and BP 124/90. Patient is now resting at bed.
--- NOTE | 2019-02-11 14:52 | NUR ---
Nutrition F/U RD reviewed pt's current EMR including diet Hx, physician notes, nursing notes, pertinent labs/meds/procedures, care trends and care activity. Current Nutrition Support: Vital AF 1.2 at 70ml/hr (goal rate), FWF: 100ml Q8H via NGT Subjective information: Pt seen seen in bed, EN support infusing per MD orders. RD discussed w/ RN rec for PEG to better meet estimated needs. Due to critical illness on vent, pt's calorie needs fluctuates depending on vent settings, also considering pt's visible weight loss since admission, pt may need adequate nutrition for recovery. Pt may benefit from PEG for half-way nutrition support. ESTIMATED NUTRITIONAL REQUIREMENTS CALORIES/DAY: 2951 kcal/day (REE PSU 2003b for critical illness, on vent) PROTEIN/DAY: 127-196 gm/day (1.3-2 gm/kg Adj IBW for obesity, COPD) FLUID/DAY: Per physician d/t Hx of CHF PES 1. Morbid Obesity r/t inability to access healthier food choices AEB possible consumption of high calorie food and beverage from fast food restaurants and convenient stores, homelessness and BMI 40 kg/m2. *no longer applicable 2. Inadequate nutrient intake r/t medication intake AEB PO intake not meeting 75% of estimated needs and nursing staff report. *ongoing 3. Unintentional wt loss related to possible lean muscle mass depletion as evidenced by possible 47#/15% wt change within 1 month. *ongoing 4. Inadequate EN support related to critical illness as evidenced by no currently infusing nutrition support. *resolved 5. Inadequate EN support r/t increased caloric needs AEB current EN regimen provides <75% of estimated calorie needs. (*improving) I: 1. Recommend continuing Vital AF 1.2 at 70 ml/hr (goal rate), Free Water Flush: 100 ml Q6h via NGT Provides: 2016 kcal, 126 gm protein and 1762ml free water daily. Meets: 76% of estimated calorie needs and 99% of lower end of estimated protein needs. 2. 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 M: Monitor tolerance to EN support w/ goal of pt meeting at least 85% of estimated nutritional needs, labs trending WNL, normal GI function, skin integrity/wt maintenance. E: High Risk; F/U within 2-3 days PEPPER CHONG
--- NOTE | 2019-02-11 14:59 | NUR ---
Tunnel Heading Inspector Recommendation I: 1. Recommend continuing Vital AF 1.2 at 70 ml/hr (goal rate), Free Water Flush: 100 ml Q6h via NGT Provides: 2016 kcal, 126 gm protein and 1762ml free water daily. Meets: 76% of estimated calorie needs and 99% of lower end of estimated protein needs. 2. 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 USP, RD
--- NOTE | 2019-02-11 15:58 | NUR ---
Cafeteria Manager Note Received a call from patient's , Shannen [phone]. She has discussed with patient's sister, Mary Ann, and patient's son, the trach. They would like patient to have a trach. She is off work and awaiting a call from Dr Pelaez today. Will notify nursing staff.
--- NOTE | 2019-02-11 17:27 | NUR ---
CONSULT GI DR. HENLEY CALLED (DR. MA CITY AUDITOR) SPOKE TO [facility] DIALED [phone] KEARNS
--- NOTE | 2019-02-11 17:38 | NUR ---
CONSULT SURGERY DR. MARCUS SPOKE TO [facility] DIALED [phone] KEARNS
--- NOTE | 2019-02-11 19:20 | NUR ---
AT 1920 P.M, RECEIVED NURSING REPORT FROM DAY VINAY MORENO R.N
--- NOTE | 2019-02-11 19:32 | NUR ---
Closing Note Provided plan of care to endorsing nurse Kathryn PINEDA. Completed bedside round.
[2019-02-12] VITALS (35 sets, daily range): BP systolic 89–157
[2019-02-12] MEDS: IPRATROPIUM/ALBUTEROL SULFATE 3 ML AMPUL.NEB (DUONEB) INH SCH ×4 (00:56→19:45)
[2019-02-12] MEDS: metroNIDAZOLE 250 mg/NS 50 ML IV SCH ×3 (01:31→17:14)
[2019-02-12] MEDS: MORPHINE 2 MG/ML INJ. SYRINGE IVP PRN ×3 (02:59→10:37)
--- NOTE | 2019-02-12 03:00 | NUR ---
CHG BATH DONE
[2019-02-12] MEDS: VANCOMYCIN HCL 1,500 MG in NS 250 ML IV SCH ×2 (03:05→15:38)
[2019-02-12] MEDS: LORazepam 2 MG/ML VIAL IVP PRN ×3 (03:17→21:38)
[2019-02-12] MEDS: DILTIAZEM HCL 60 MG TABLET PO SCH ×3 (05:00→17:14)
[2019-02-12 05:53] LABS: BASOPHILS # (AUTO) 0.1 K/uL (0.0-0.2); BASOPHILS % (AUTO) 1.1 % (0.0-2.0); EOSINOPHILS # (AUTO) 0.2 K/uL (0.0-0.4); EOSINOPHILS % (AUTO) 1.5 % (0.0-4.0); HEMATOCRIT 27.3 % (36-54); HEMOGLOBIN 8.6 g/dL (14.0-18.0); LYMPHOCYTES # (AUTO) 1.4 K/uL (1.0-5.5); LYMPHOCYTES % (AUTO) 10.5 % (20.5-51.5); MEAN CORPUSCULAR HEMOGLOBIN 28 pg (27-31); MEAN CORPUSCULAR HGB CONC 32 % (32-36); MEAN CORPUSCULAR VOLUME 87 fL (79.0-98.0); MONOCYTES # (AUTO) 1.5 K/uL (0.0-1.0); MONOCYTES % (AUTO) 11.7 % (1.7-9.3); NEUTROPHILS # (AUTO) 9.9 K/uL (1.8-7.7); NEUTROPHILS % (AUTO) 75.2 % (40.0-70.0); PLATELET COUNT (AUTO) 275 K/uL (130-430); RED BLOOD CELL COUNT(AUTO) 3.15 MIL/uL (4.2-6.2); RED CELL DISTRIBUTION WIDTH 24.5 % (9.0-15.0); WHITE BLOOD COUNT (AUTO) 13.2 K/uL (4.8-10.8)
[2019-02-12 06:21] LABS: ALBUMIN 2.2 g/dL (3.4-4.8); CALCIUM 8.5 mg/dL (8.4-11.0); CREATININE 0.58 mg/dL (0.55-1.30); POTASSIUM 3.6 mmol/L (3.5-5.1)
--- NOTE | 2019-02-12 07:10 | NUR ---
GIVE COMPLETE NURSING REPORT TO DAY SHIFT TIFFANIE Mederos
--- NOTE | 2019-02-12 07:23 | NUR ---
Opening Note: Received plan of care from endorsing nurse Peralta RN via sbar. Completed patient round. All safety measures checked.
[2019-02-12] MEDS: cefTRIAXone 1 GM in D5W 50 ML IV SCH (08:33)
[2019-02-12] MEDS: POTASSIUM CHLORIDE 20 MEQ/PKT PACKET NG SCH ×2 (08:33→21:37)
[2019-02-12] MEDS: MULTIVITS,CA,MINERALS/IRON/FA 1 TABLET NG SCH (08:34)
[2019-02-12] MEDS: ASCORBIC ACID 500 MG TABLET NG SCH (08:34)
[2019-02-12] MEDS: NAPH,MB-DB/K PH,MBDB 250 MG TAB GT SCH ×2 (08:34→21:37)
[2019-02-12] MEDS: QUEtiapine FUMARATE 100 MG TABLET GT SCH ×3 (08:34→21:37)
[2019-02-12] MEDS: CHOLECALCIFEROL (VITAMIN D3) 2,000 UNIT TABLET NG SCH (08:34)
[2019-02-12] MEDS: VITAMIN B COMPLEX 1 CAP/TAB NG SCH (08:34)
[2019-02-12] MEDS: HYDROCORTISONE SOD SUCC 100 MG/2 ML VIAL IVP SCH (08:35)
[2019-02-12] MEDS: FUROSEMIDE 20 MG/2 ML VIAL IVP SCH (08:36)
[2019-02-12] MEDS: DIGOXIN 0.5 MG/2 ML AMP IVP SCH (08:37)
[2019-02-12] MEDS: PANTOPRAZOLE SODIUM 40 MG/VIAL (PROTONIX) IVP SCH ×2 (08:37→21:37)
[2019-02-12] MEDS: LOSARTAN POTASSIUM 50 MG TABLET (COZAAR) NG SCH ×2 (08:39→21:38)
--- NOTE | 2019-02-12 19:33 | NUR ---
Closing Note: Provided plan of care to receiving RN Abelardo via sbar. Completed patient round.
--- NOTE | 2019-02-12 20:00 | NUR ---
ORALLY INTUBATED. SUCTIONED WITH MOD AMOUNT OF THICK WHITE MUCUS OBTAINED. RESPONDS TO VERBAL STIMULI. ORAL CARE GIVEN. NGT FEEDING WITH VITAL AF 1.2 AT 70CC/HR. RESIDUAL CHECK 0. NGT FLUSHED WITH 150CC H2O. PARKER SOFT WRIST RESTRAINTS IN PLACE FOR SAFETY. PARKER SCD'S IN PLACE. RAMOS CATH PATENT DRAINING CLEAR IVON URINE TO GRAVITY. AFIB.
--- NOTE | 2019-02-12 22:00 | NUR ---
ATIVAN 2 MG IVP GIVEN EARLIER FOR AGITATION ND RESTLESSNESS. HS ACRE. SUCTIONED. REPOSITIONED.
[2019-02-13] VITALS (34 sets, daily range): BP systolic 96–172
--- NOTE | 2019-02-13 | NUR ---
DOZES ON AND OFF. RESTLESS AT TIMES. THRASHES LEGS. RESIDUAL CHECK 0. NGT FLUSHED WITH 150CC H2O. CIRCULATION CHECK DONE, PULSES PALPABLE. ORAL CARE GIVEN. TURNED.
[2019-02-13] MEDS: DILTIAZEM HCL 60 MG TABLET PO SCH ×4 (00:06→18:00)
[2019-02-13] MEDS: IPRATROPIUM/ALBUTEROL SULFATE 3 ML AMPUL.NEB (DUONEB) INH SCH ×2 (00:37→07:14)
--- NOTE | 2019-02-13 02:00 | NUR ---
ASLEEP. BOUTS OF RESTLESSNESS. BP LABILE
[2019-02-13] MEDS: metroNIDAZOLE 250 mg/NS 50 ML IV SCH ×3 (02:06→19:19)
[2019-02-13] MEDS: VANCOMYCIN HCL 1,500 MG in NS 250 ML IV SCH ×2 (03:44→16:00)
--- NOTE | 2019-02-13 04:00 | NUR ---
UO ADEQUATE. SUCTIONED AND TURNED Q2 HRS AND PRN. BOUTS OF RESTLESSNESS AND AGITATION. SOFT WRIST RESTRAINTS IN PLACE. FLAILING LEGS OVER SIDE RAILS. REMAINS IN GUARDED CONDITION. Addendum: 02/13/19 at 0644 by Abelardo Irwin RN CORRECTION: TIME SHOULD BE 0600.
--- NOTE | 2019-02-13 04:00 | NUR ---
RESTLESS AT TIMES. SUCTIONED. TURNED. ORAL CARE GIVEN. PULSES PALPABLE. NGT FLUSHED WITH 150CC H2O.
[2019-02-13] MEDS: LORazepam 2 MG/ML VIAL IVP PRN ×3 (04:47→14:04)
--- NOTE | 2019-02-13 05:00 | NUR ---
ATIVAN 2 MG IVP GIVEN FOR RESTLESSNESS EARLIER. 1 MODERATE BROWN LBM DEFECATED. CLEANED. JOSE LUIS-CARE, RAMOS CARE, BACK CARE GIVEN. Z-GUARD APPLIED TO PERINEUM , SKIN CARE DONE. PARTIAL LINEN CHANGE. DOES NOT ASSIST WITH TURNING. ARINA PROC WELL.
[2019-02-13 05:47] LABS: BASOPHILS # (AUTO) 0.2 K/uL (0.0-0.2); BASOPHILS % (AUTO) 1.2 % (0.0-2.0); EOSINOPHILS # (AUTO) 0.3 K/uL (0.0-0.4); HEMATOCRIT 27.1 % (36-54); HEMOGLOBIN 8.6 g/dL (14.0-18.0); LYMPHOCYTES # (AUTO) 1.3 K/uL (1.0-5.5); LYMPHOCYTES % (AUTO) 9.8 % (20.5-51.5); MEAN CORPUSCULAR HEMOGLOBIN 28 pg (27-31); MEAN CORPUSCULAR HGB CONC 32 % (32-36); MEAN CORPUSCULAR VOLUME 87 fL (79.0-98.0); MONOCYTES # (AUTO) 1.4 K/uL (0.0-1.0); MONOCYTES % (AUTO) 10.4 % (1.7-9.3); NEUTROPHILS # (AUTO) 10.5 K/uL (1.8-7.7); NEUTROPHILS % (AUTO) 76.6 % (40.0-70.0); PLATELET COUNT (AUTO) 294 K/uL (130-430); RED BLOOD CELL COUNT(AUTO) 3.13 MIL/uL (4.2-6.2); RED CELL DISTRIBUTION WIDTH 24.3 % (9.0-15.0); WHITE BLOOD COUNT (AUTO) 13.7 K/uL (4.8-10.8)
[2019-02-13 06:03] LABS: INR 1.3 (0.80-1.20); PROTHROMBIN TIME 13.2 SECS (9.5-12.5)
[2019-02-13 06:15] LABS: ALBUMIN 2.4 g/dL (3.4-4.8); CALCIUM 8.7 mg/dL (8.4-11.0); CREATININE 0.56 mg/dL (0.55-1.30); POTASSIUM 3.9 mmol/L (3.5-5.1); TOTAL BILIRUBIN 0.9 mg/dL (0.0-1.0)
--- NOTE | 2019-02-13 07:08 | NUR ---
Opening Note Received report from endorsing RN. Received pt with no signs of distress or pain. Bilateral soft wrist restraints in place for safety. Pt is scheduled for trach and PEG placement today.
[2019-02-13] MEDS: DIGOXIN 0.5 MG/2 ML AMP IVP SCH (08:15)
[2019-02-13] MEDS: HYDROCORTISONE SOD SUCC 100 MG/2 ML VIAL IVP SCH (08:15)
[2019-02-13] MEDS: NAPH,MB-DB/K PH,MBDB 250 MG TAB GT SCH ×2 (08:16→21:00)
[2019-02-13] MEDS: MULTIVITS,CA,MINERALS/IRON/FA 1 TABLET NG SCH (08:16)
[2019-02-13] MEDS: FUROSEMIDE 20 MG/2 ML VIAL IVP SCH (08:16)
[2019-02-13] MEDS: LOSARTAN POTASSIUM 50 MG TABLET (COZAAR) NG SCH ×2 (08:16→21:00)
[2019-02-13] MEDS: QUEtiapine FUMARATE 100 MG TABLET GT SCH ×3 (08:17→21:00)
[2019-02-13] MEDS: ASCORBIC ACID 500 MG TABLET NG SCH (08:17)
[2019-02-13] MEDS: VITAMIN B COMPLEX 1 CAP/TAB NG SCH (08:17)
[2019-02-13] MEDS: POTASSIUM CHLORIDE 20 MEQ/PKT PACKET NG SCH ×2 (08:17→21:00)
[2019-02-13] MEDS: CHOLECALCIFEROL (VITAMIN D3) 2,000 UNIT TABLET NG SCH (08:17)
[2019-02-13] MEDS: MORPHINE 2 MG/ML INJ. SYRINGE IVP PRN ×2 (08:17→14:05)
[2019-02-13] MEDS: PANTOPRAZOLE SODIUM 40 MG/VIAL (PROTONIX) IVP SCH ×2 (08:18→21:35)
[2019-02-13] MEDS: cefTRIAXone 1 GM in D5W 50 ML IV SCH (08:19)
--- NOTE | 2019-02-13 12:33 | NUR ---
Page out to Dr. Osborne for orders, spoke with exchange.
--- NOTE | 2019-02-13 12:45 | NUR ---
Dr. Osborne returned call, no new orders made. Held cardizem GT dose for surgery. Addendum: 02/13/19 at 1329 by Reina Ryder RN Also held NGT water flush for NPO status.
--- NOTE | 2019-02-13 13:02 | NUR ---
Dr. Cason at bedside. Pt will go to OR for peg and trach placement. Called Shannen for consent. Dr. Cason spoke with to explain procedure including side effects and adverse reactions. Opportunity for questions provided, verbalized understanding to Dr. Cason and myself and gives consent for sedation and surgery. Consent signed and placed in chart.
--- NOTE | 2019-02-13 16:20 | NUR ---
RT NOTES Transported pt to O.R bagging w/ 100% O2 via ambubag to ETT w/ Dr Cason and 2 O.R. nurses. ETT remained secure. RN took over bagging once in O.R receiving area.
--- NOTE | 2019-02-13 16:20 | NUR ---
Patient off unit to surgery accompanied by OR team.
[2019-02-13] MEDS ORDERED: fentaNYL CITRATE/PF 100 MCG/2 ML AMP IVP PRN ×2 (17:45)
--- NOTE | 2019-02-13 18:05 | NUR ---
Patient return from OR and situated to room. Per Edwina PINEDA from PACU, she will take over monitoring and care for the patient for the first hour.
--- NOTE | 2019-02-13 18:05 | NUR ---
RT NOTES Transported from O.R bagging w/ 100% O2 via ambubag to trach tube. Bilateral b/s/chest rise noted. T.T sutured and secured w/ trach ties per Dr Cason. Placed pt back on vent, per Dr Cason 100% O2 for 30 minutes. Will endorse to NOC shift.
--- NOTE | 2019-02-13 18:50 | NUR ---
Received report on pt from FLAT BED OPERATORMIRIAM Bland. Pt in no signs of pain or distress.
--- NOTE | 2019-02-13 19:05 | NUR ---
Endorsed plan of care to oncoming shift RN. Pt in no signs of pain or distress. Remains on bilateral soft wrist restraints for safety.
[2019-02-13] MEDS: IPRATROPIUM/ALBUTEROL SULFATE 3 ML AMPUL.NEB (DUONEB) INH PRN (19:55)
--- NOTE | 2019-02-13 20:00 | NUR ---
LETHARGIC. TRACH TO VENT. SUCTIONED TRACHEALLY WITH COPIOUS AMOUNTS OF THICK RED-TINGED FROTHY MUCUS OBTAINED. OPENS MOUTH ON COMMAND, ORAL CARE GIVEN. PARKER SOFT WRIST RESTRAINTS IN PLACE FOR SAFETY. GT DRSG D/I. GT CLAMPED. RIGHT UPPER ARM PICC LINE DRSG D/I. RAMOS CATH PATENT DRAINING CLEAR IVON URINE TO GRAVITY. PARKER SCD'S IN PLACE. AFIB SHOWING IN MONITOR. CONTACT ISOLATION OBSERVED.
--- NOTE | 2019-02-13 21:00 | NUR ---
FATHER CALLED, UPDATED ON CONDITION. GT MEDS HELD AT THIS TIME, S/P FRESH PEG PLACEMENT.
[2019-02-14] VITALS (35 sets, daily range): BP systolic 99–179
--- NOTE | 2019-02-14 | NUR ---
SLEPT INTERMITTENTLY. BOUTS OF RESTLESSNESS. FREQUENT SUCTIONING OF TRACH WITH COPIOUS AMOUNTS OF FROTHY BLOOD TINGED MUCUS OBTAINED. ORAL CARE DONE. CIRCULATION CHECK DONE, PULSES PALPABLE. TURNED AND REPOSITIONED Q2 HRS AND PRN.
[2019-02-14] MEDS: IPRATROPIUM/ALBUTEROL SULFATE 3 ML AMPUL.NEB (DUONEB) INH PRN ×2 (01:32→19:53)
[2019-02-14] MEDS: metroNIDAZOLE 250 mg/NS 50 ML IV SCH ×3 (01:59→17:40)
--- NOTE | 2019-02-14 02:00 | NUR ---
1 LARGE WATERY BROWN LBM DEFECATED. CLEANED. JOSE LUIS-CARE, BACK CARE, RAMOS CARE, SKIN CARE RENDERED. PARTIAL LINEN CHANGE DONE. DOES NOT ASSIST WITH TURNING. ARINA PROC WELL.
[2019-02-14] MEDS: VANCOMYCIN HCL 1,500 MG in NS 250 ML IV SCH (03:38)
--- NOTE | 2019-02-14 04:00 | NUR ---
OPENS EYES SPONTANEOUSLY. AGITATED. BP UP. ATIVAN 2 MG IVP GIVEN FOR RESTLESSNESS. ORAL CARE GIVEN WITH CHLORHEXEDINE ORAL RINSE AND TOOTHETTES.
[2019-02-14] MEDS: LORazepam 2 MG/ML VIAL IVP PRN ×3 (04:13→16:06)
[2019-02-14 05:37] LABS: BASOPHILS # (AUTO) 0.2 K/uL (0.0-0.2); BASOPHILS % (AUTO) 1.8 % (0.0-2.0); EOSINOPHILS # (AUTO) 0.3 K/uL (0.0-0.4); EOSINOPHILS % (AUTO) 2.1 % (0.0-4.0); HEMATOCRIT 28.1 % (36-54); HEMOGLOBIN 9.1 g/dL (14.0-18.0); LYMPHOCYTES # (AUTO) 0.9 K/uL (1.0-5.5); LYMPHOCYTES % (AUTO) 7.5 % (20.5-51.5); MEAN CORPUSCULAR HEMOGLOBIN 28 pg (27-31); MEAN CORPUSCULAR HGB CONC 32 % (32-36); MEAN CORPUSCULAR VOLUME 86 fL (79.0-98.0); MONOCYTES # (AUTO) 1.1 K/uL (0.0-1.0); MONOCYTES % (AUTO) 8.7 % (1.7-9.3); NEUTROPHILS # (AUTO) 9.9 K/uL (1.8-7.7); NEUTROPHILS % (AUTO) 79.9 % (40.0-70.0); PLATELET COUNT (AUTO) 292 K/uL (130-430); RED BLOOD CELL COUNT(AUTO) 3.25 MIL/uL (4.2-6.2); RED CELL DISTRIBUTION WIDTH 23.9 % (9.0-15.0); WHITE BLOOD COUNT (AUTO) 12.3 K/uL (4.8-10.8)
--- NOTE | 2019-02-14 06:00 | NUR ---
SLEPT INTERMITTENTLY. RESTLESS AT TIMES. UO ADEQUATE. SCHEDULED CARDIZEM 60 MG AT 0600 GIVEN. REMAINS IN GUARDED CONDITION.
[2019-02-14 06:09] LABS: ALBUMIN 2.4 g/dL (3.4-4.8); CALCIUM 8.8 mg/dL (8.4-11.0); CREATININE 0.52 mg/dL (0.55-1.30); POTASSIUM 3.4 mmol/L (3.5-5.1); TOTAL BILIRUBIN 1.3 mg/dL (0.0-1.0)
[2019-02-14] MEDS: DILTIAZEM HCL 60 MG TABLET PO SCH ×4 (06:11→17:40)
--- NOTE | 2019-02-14 06:40 | NUR ---
DR KEARNS UPDATED ON CONDITION, ORDERED TO START GT FEEDING WITH VITAL AF 1.2 AT 10CC/HR, AND IVF D5LR AT 100CC/HR. IMPLEMENTED.
[2019-02-14] MEDS: D5LR 1,000 ML IV SCH ×2 (07:04→14:18)
--- NOTE | 2019-02-14 07:15 | NUR ---
Opening Note Patient received restless and kicking in bed. Patient on seconds grader with a-fib. Patient has a trach and on ventilator with settings of AC 12, tidal volume 500, FiO2 35%, and PEEP of 5. Patient has a right upper arm PICC line infusing D5LR @ 100 ml/hr. Patient has a g-tube in place infusing Vital AF 1.2 @ 10 ml/hr. Patient has a durbin catheter draining bacilio urine. Safety precautions enforced.
[2019-02-14] MEDS ORDERED: VANCOMYCIN HCL 1,500 MG in D5W 250 ML IV SCH ×2 (08:29→16:00)
[2019-02-14] MEDS: HYDROCORTISONE SOD SUCC 100 MG/2 ML VIAL IVP SCH (08:57)
[2019-02-14] MEDS: PANTOPRAZOLE SODIUM 40 MG/VIAL (PROTONIX) IVP SCH ×2 (08:57→21:12)
[2019-02-14] MEDS: POTASSIUM CHLORIDE 20 MEQ/PKT PACKET NG SCH ×2 (08:57→21:12)
[2019-02-14] MEDS: DIGOXIN 0.5 MG/2 ML AMP IVP SCH (08:58)
[2019-02-14] MEDS: FUROSEMIDE 20 MG/2 ML VIAL IVP SCH (08:58)
[2019-02-14] MEDS: VITAMIN B COMPLEX 1 CAP/TAB NG SCH (08:58)
[2019-02-14] MEDS: MULTIVITS,CA,MINERALS/IRON/FA 1 TABLET NG SCH (08:59)
[2019-02-14] MEDS: LOSARTAN POTASSIUM 50 MG TABLET (COZAAR) NG SCH ×2 (08:59→21:11)
[2019-02-14] MEDS: ASCORBIC ACID 500 MG TABLET NG SCH (08:59)
[2019-02-14] MEDS: NAPH,MB-DB/K PH,MBDB 250 MG TAB GT SCH ×2 (08:59→21:09)
[2019-02-14] MEDS: QUEtiapine FUMARATE 100 MG TABLET GT SCH ×3 (08:59→21:10)
[2019-02-14] MEDS: CHOLECALCIFEROL (VITAMIN D3) 2,000 UNIT TABLET NG SCH (08:59)
[2019-02-14] MEDS: cefTRIAXone 1 GM in D5W 50 ML IV SCH (09:00)
--- NOTE | 2019-02-14 09:20 | NUR ---
RT NOTES Dr Garcia at bedside, made aware of d/c HHN tx and pt's low tidal volume despite cuff being inflated appropriately. RT changed out the ventilator per 's instructions, still shows low tidal volume, pt's saturation remained mid to high 90s. Dr Garcia also attempted to add more air in cuff, but after a few minutes, low tidal volume was noted on vent. Dr Garcia attempted to notify Dr Lombardi. Addendum: 02/14/19 at 1057 by Ruby Larkin RT Amended: Links added.
--- NOTE | 2019-02-14 09:50 | NUR ---
MD Rounds Dr. Medina to see patient. No new orders received.
--- NOTE | 2019-02-14 10:00 | NUR ---
MD Rounds Dr. Garcia @ bedside to see patient. No new orders received.
--- NOTE | 2019-02-14 10:50 | NUR ---
MD Rounds Dr. Ray to see patient. No new orders received.
[2019-02-14] MEDS ORDERED: POTASSIUM CHLORIDE 20 MEQ/PKT PACKET GT ONE (11:45)
--- NOTE | 2019-02-14 12:00 | NUR ---
RN Rounds Patient able to follow commands. Patient communicates by nodding. Patient resting @ this time with no signs of distress noted.
--- NOTE | 2019-02-14 12:30 | NUR ---
MD Rounds Dr. Pelaez @ bedside. New orders received and carried out.
--- NOTE | 2019-02-14 15:06 | NUR ---
CHG CHG bath given and linens changed. Patient tolerated procedure well. No signs of distress noted.
--- NOTE | 2019-02-14 16:04 | NUR ---
Nutrition F/U RD reviewed pt's current EMR including diet Hx, physician notes, nursing notes, pertinent labs/meds/procedures, care trends, and care activity. Current Nutrition Support: Vital AF 1.2 at 70 ml/hr (goal rate), Free Water Flush: 100 ml Q6h via NGT x0 days Subjective information: Pt seen in bed, trach to vent, and EN support hung (Vital AF 1.2)/infusing at 20 ml/hr. Per RN, pt is s/p trach and PEG placement yesterday, 02/14/19. TF was increased by 10 ml this morning, and no residuals have been checked yet today per RN. BM noted x1 early this morning per EMR. Pt continues to have fluctuating nutritional needs d/t critical illness and vent support. Increased nutritional needs are warranted d/t Hx of unintentional wt loss. ESTIMATED NUTRITIONAL REQUIREMENTS NEW CALORIES/DAY: 2682 kcal/day (REE PSU 2003b for critical illness, on vent; minute volume: 17; temperature: 37.5 degrees C) PROTEIN/DAY: 127-196 gm/day (1.3-2 gm/kg Adj IBW for obesity, COPD) FLUID/DAY: Per physician d/t Hx of CHF PES 1. Morbid Obesity r/t inability to access healthier food choices AEB possible consumption of high calorie food and beverage from fast food restaurants and convenient stores, homelessness, and BMI 40 kg/m2. *no longer applicable 2. Inadequate nutrient intake r/t medication intake AEB PO intake not meeting 75% of estimated needs and nursing staff report. *ongoing 3. Unintentional wt loss related to possible lean muscle mass depletion as evidenced by possible 47#/15% wt change within 1 month. *ongoing 4. Inadequate EN support related to critical illness as evidenced by no currently infusing nutrition support. *resolved 5. Inadequate EN support r/t increased caloric needs AEB current EN regimen provides <75% of estimated calorie needs. *improving I: 1. Recommend Vital AF 1.2 at 80 ml/hr (goal rate), Free Water Flush: 100 ml Q6h via GT Provides: 2304 kcal/day, 144 gm protein/day, and 1954 ml free water/day Meets: 86% of estimated caloric needs and 113% of lower end of estimated protein needs M: Monitor tolerance to EN support w/ goal of pt meeting at least 85% of estimated nutritional needs, labs trending WNL, normal GI function, skin integrity/wt maintenance. E: High Risk; F/U within 2-3 days
[2019-02-14] MEDS ORDERED: fentaNYL CITRATE/PF 100 MCG/2 ML AMP IVP ONE (16:10)
[2019-02-14] MEDS ORDERED: MIDAZOLAM HCL 5 MG/5 ML VIAL IVP ONE (16:10)
[2019-02-14] MEDS ORDERED: NS 1000 ML IV.SOLN IV ONE (16:10)
[2019-02-14] MEDS ORDERED: SEVOFLURANE 15 MIN GAS INH ONE (16:10)
[2019-02-14] MEDS ORDERED: NS IRRIG SOLN 1000 ML IR ONE (16:10)
--- NOTE | 2019-02-14 16:14 | NUR ---
Dietitian Recommendations 1. Recommend Vital AF 1.2 at 80 ml/hr (goal rate), Free Water Flush: 100 ml Q6h via GT Provides: 2304 kcal/day, 144 gm protein/day, and 1954 ml free water/day Meets: 86% of estimated caloric needs and 113% of lower end of estimated protein needs LP, RD Please refer to Nutrition F/U for details.
--- NOTE | 2019-02-14 19:16 | NUR ---
Closing Note Endorsed patient to manager shift RN using SBAR format. No signs of distress noted.
--- NOTE | 2019-02-14 20:00 | NUR ---
Awake in bed, restless and kicking.Knows name but uncooperative.Attempts to sit up, trying to get out of bed and tried to pull on his durbin cath.Continued use of restraints is necessary for patients safety.Has iv infusing well over rt arm, PICC line.tolerating GT feeding at 40 cc/hr.Temp- 99.1F
--- NOTE | 2019-02-14 21:00 | NUR ---
Dr Lombardi here and Jackie RT at bedside.No signs of any problem with trach at this time.Pt getting the volume and trach was tested for leaks and none was found.Will continue to observe tonite per Dr Lombardi and to call him if there's any problem again.
[2019-02-14] MEDS: CARVEDILOL 6.25 MG TABLET (COREG) GT SCH (21:11)
[2019-02-14] MEDS: HALOPERIDOL LACTATE 5 MG/ML VIAL IM PRN (21:13)
[2019-02-14] MEDS: DIPHENHYDRAMINE INJ 50 MG/ML VIAL IVP PRN (21:13)
[2019-02-14] MEDS: MORPHINE 2 MG/ML INJ. SYRINGE IVP PRN (22:00)
--- NOTE | 2019-02-14 23:00 | NUR ---
Received report from night RN and pt care was endorsed. No signs of acute distress or discomfort noted. Will cont to monitor.
[2019-02-14] MEDS: VANCOMYCIN HCL 1,250 MG in NS 250 ML IV SCH (23:23)
[2019-02-15] VITALS (28 sets, daily range): BP systolic 99–138
[2019-02-15] MEDS: DILTIAZEM HCL 60 MG TABLET PO SCH ×4 (00:07→18:34)
[2019-02-15] MEDS: LORazepam 2 MG/ML VIAL IVP PRN ×4 (00:08→15:15)
--- NOTE | 2019-02-15 02:20 | NUR ---
RT at bedside. No signs of acute distress or discomfort noted. Will cont to monitor pt.
[2019-02-15] MEDS: metroNIDAZOLE 250 mg/NS 50 ML IV SCH (02:23)
--- NOTE | 2019-02-15 07:10 | NUR ---
Report given to oncoming RN and pt care was endorsed. No signs of acute distress or discomfort noted.
--- NOTE | 2019-02-15 07:24 | NUR ---
Opening Note: Received plan of care via sbar from endorsing nurse MIRIAM Dubon. Completed patient round.
[2019-02-15] MEDS: PANTOPRAZOLE SODIUM 40 MG/VIAL (PROTONIX) IVP SCH ×2 (08:04→21:40)
[2019-02-15] MEDS: cefTRIAXone 1 GM in D5W 50 ML IV SCH (08:04)
[2019-02-15] MEDS: HYDROCORTISONE SOD SUCC 100 MG/2 ML VIAL IVP SCH (08:05)
[2019-02-15] MEDS: FUROSEMIDE 20 MG/2 ML VIAL IVP SCH (08:05)
[2019-02-15] MEDS: POTASSIUM CHLORIDE 20 MEQ/PKT PACKET NG SCH ×2 (08:06→21:40)
[2019-02-15] MEDS: NAPH,MB-DB/K PH,MBDB 250 MG TAB GT SCH ×2 (08:06→21:38)
[2019-02-15] MEDS: CHOLECALCIFEROL (VITAMIN D3) 2,000 UNIT TABLET NG SCH (08:07)
[2019-02-15] MEDS: VITAMIN B COMPLEX 1 CAP/TAB NG SCH (08:07)
[2019-02-15] MEDS: MULTIVITS,CA,MINERALS/IRON/FA 1 TABLET NG SCH (08:07)
[2019-02-15] MEDS: ASCORBIC ACID 500 MG TABLET NG SCH (08:07)
[2019-02-15] MEDS: CARVEDILOL 6.25 MG TABLET (COREG) GT SCH ×2 (08:07→21:39)
[2019-02-15] MEDS: LOSARTAN POTASSIUM 50 MG TABLET (COZAAR) NG SCH ×2 (08:07→21:39)
[2019-02-15] MEDS: QUEtiapine FUMARATE 100 MG TABLET GT SCH ×3 (08:08→21:39)
[2019-02-15] MEDS: DIGOXIN 0.125 MG TABLET GT SCH (08:08)
--- NOTE | 2019-02-15 08:30 | NUR ---
Dr. Medina at bedside. Received orders to change fluids to TKO and free water flush to 200 cc Q6.
--- NOTE | 2019-02-15 08:55 | NUR ---
RT NOTES - CPAP 5, PS 10 PT PLACED ON CPAP5, PS10, 35%FIO2 AT THIS TIME PER DR. DHALIWAL. TOLERATING WELL. NO S/S DISTRESS NOTED. MIRIAM MORENO MADE AWARE. WILL CONTINUE MONITORING.
[2019-02-15] MEDS: VANCOMYCIN HCL 1,250 MG in NS 250 ML IV SCH ×3 (09:25→23:56)
[2019-02-15] MEDS: MORPHINE 2 MG/ML INJ. SYRINGE IVP PRN (15:16)
--- NOTE | 2019-02-15 19:00 | NUR ---
PT TRANSFERRED Report given to Dinesh at bedside room 121A. All belongings sent with patient. Patient left floor via gurney escorted by RN and RT in no distress. All safety measures met prior to leaving room.
--- NOTE | 2019-02-15 19:45 | NUR ---
OPENING NOTES Received patient resting in bed, eyes closed. HOB elevated. No signs of shortness of breath , connected to CPAP, trach Shilley 8, FiO2 35%, PEEP 5.0, and 12 bpm. PICC on Right upper arm, dressings c/d/i. Hobson catheter draining by gravity, no kinks, not touching the floor. G tube in place running per MD order. Restraints in place. Call light within reach, bed alarm on, and bed at lowest position. Will continue to monitor.
--- NOTE | 2019-02-16 00:12 | NUR ---
Patient is resting, eyes closed. G tube running Vital AF per MD order. Hobson catheter draining per gravity, no kinks, not touching the floor, clear bacilio urine noted. Picc line patent, dressings c/d/i. restraints in place. No signs of acute respiratory distress. HOB elevated. Safety precautions in place. Will continue to monitor.
[2019-02-16] MEDS: DILTIAZEM HCL 60 MG TABLET PO SCH ×4 (00:31→17:27)
[2019-02-16 02:02] VITALS: BP_SYST 132
--- NOTE | 2019-02-16 02:20 | NUR ---
Patient is resting, maliha care performed. Patient tolerated tube feeding well. No signs of shortness of breath. PICC line patent, dressings c/d/i. Safety precautions in place. Will continue to monitor.
--- NOTE | 2019-02-16 04:15 | NUR ---
Patient is resting, eyes closed. No signs of shortness of breath or pain. Safety precautions in place. Will continue to monitor.
[2019-02-16 06:22] LABS: BASOPHILS # (AUTO) 0.2 K/uL (0.0-0.2); BASOPHILS % (AUTO) 1.4 % (0.0-2.0); EOSINOPHILS # (AUTO) 0.3 K/uL (0.0-0.4); EOSINOPHILS % (AUTO) 2.9 % (0.0-4.0); HEMOGLOBIN 8.8 g/dL (14.0-18.0); LYMPHOCYTES # (AUTO) 1.2 K/uL (1.0-5.5); LYMPHOCYTES % (AUTO) 10.6 % (20.5-51.5); MEAN CORPUSCULAR HEMOGLOBIN 28 pg (27-31); MEAN CORPUSCULAR HGB CONC 33 % (32-36); MEAN CORPUSCULAR VOLUME 87 fL (79.0-98.0); MONOCYTES # (AUTO) 1.3 K/uL (0.0-1.0); NEUTROPHILS # (AUTO) 8.5 K/uL (1.8-7.7); NEUTROPHILS % (AUTO) 74.1 % (40.0-70.0); PLATELET COUNT (AUTO) 277 K/uL (130-430); RED BLOOD CELL COUNT(AUTO) 3.12 MIL/uL (4.2-6.2); RED CELL DISTRIBUTION WIDTH 23.9 % (9.0-15.0); WHITE BLOOD COUNT (AUTO) 11.5 K/uL (4.8-10.8)
--- NOTE | 2019-02-16 06:37 | NUR ---
CLOSING NOTES Patient is resting, eyes closed. No signs of acute respiratory distress, Connected to CPAP, per MD order, PICC running per MD order, Left upper arm, patent, dressings c/d/i. G tube dressing c/d/i. Patient tolerating well. Call light within reach, bed alarm on, bed at lowest position. HOB elevated. Will endorse care to oncoming shift.
[2019-02-16 06:41] LABS: CALCIUM 9.1 mg/dL (8.4-11.0); CREATININE 0.61 mg/dL (0.55-1.30); POTASSIUM 3.8 mmol/L (3.5-5.1)
--- NOTE | 2019-02-16 07:55 | NUR ---
OPENING NOTES RECEIVED PATIENT RESTING IN BED; EASILY AROUSABLE. NO S/SX PAIN NOTED. HOB UP. PATIENT WITH TRACH TO VENT WITH SETTINGS ON CPAP, FiO2@ 35%, PEEP 5; ARINA WELL. NO ACUTE DISTRESS. NO SOB. PICC LINE TO MARISELA INTACT AND PATENT; DRESSING C/D/I. GTUBE INTACT AND PATENT WITH GOOD PLACEMENT; ARINA GTF ORDERED. RAMOS CATH INTACT AND PATENT DRAINING YELLOW IVON URINE. RESTRAINTS IN PLACE ORDERED. CONT ON CONTACT PRECAUTIONS FOR MRSA SPUTUM. BED IN LOW AND LOCKED POSITION. SIDERAIL UPX3. BED ALARM ON. ROOM NEAR NURSES STATION. CALL LIGHT IN REACH. CONT WITH FREQUENT VISUAL CHECKS.
[2019-02-16 08:21] VITALS: BP_SYST 122
[2019-02-16] MEDS: cefTRIAXone 1 GM in D5W 50 ML IV SCH (08:33)
[2019-02-16] MEDS: VANCOMYCIN HCL 1,250 MG in NS 250 ML IV SCH ×2 (10:08→15:57)
[2019-02-16] MEDS: HYDROCORTISONE SOD SUCC 100 MG/2 ML VIAL IVP SCH (10:09)
[2019-02-16] MEDS: PANTOPRAZOLE SODIUM 40 MG/VIAL (PROTONIX) IVP SCH ×2 (10:09→20:46)
[2019-02-16] MEDS: VITAMIN B COMPLEX 1 CAP/TAB NG SCH (10:12)
[2019-02-16] MEDS: POTASSIUM CHLORIDE 20 MEQ/PKT PACKET NG SCH ×2 (10:12→20:46)
[2019-02-16] MEDS: ASCORBIC ACID 500 MG TABLET NG SCH (10:12)
[2019-02-16] MEDS: NAPH,MB-DB/K PH,MBDB 250 MG TAB GT SCH ×2 (10:12→20:45)
[2019-02-16] MEDS: CHOLECALCIFEROL (VITAMIN D3) 2,000 UNIT TABLET NG SCH (10:12)
[2019-02-16] MEDS: FUROSEMIDE 20 MG/2 ML VIAL IVP SCH (10:12)
[2019-02-16] MEDS: LOSARTAN POTASSIUM 50 MG TABLET (COZAAR) NG SCH ×2 (10:13→20:45)
[2019-02-16] MEDS: QUEtiapine FUMARATE 100 MG TABLET GT SCH ×3 (10:13→20:45)
[2019-02-16] MEDS: DIGOXIN 0.125 MG TABLET GT SCH (10:13)
[2019-02-16] MEDS: MULTIVITS,CA,MINERALS/IRON/FA 1 TABLET NG SCH (10:13)
[2019-02-16] MEDS: CARVEDILOL 6.25 MG TABLET (COREG) GT SCH ×2 (10:14→20:45)
--- NOTE | 2019-02-16 10:20 | NUR ---
MEDS PATIENT SITTING UP IN BED. GTUBE INTACT AND PATENT WITH GOOD PLACEMENT. RESIDUAL OF 20CC NOTED. ALL DUE MEDS ADMINISTERED ORDERED. TEACHING DONE ON MEDICATION AND ASE. SUCTIONED TRACH; ARINA WELL WITH LARGE AMT SECRETIONS NOTED.
--- NOTE | 2019-02-16 10:35 | NUR ---
SEEN AND EXAMINED BY AT BEDSIDE
[2019-02-16] MEDS: ACETAMINOPHEN 650 MG/20.3 ML UDC NG PRN (10:36)
--- NOTE | 2019-02-16 10:53 | NUR ---
SEEN AND EXAMINED BY AT BEDSIDE.
[2019-02-16 11:24] VITALS: BP_SYST 148
--- NOTE | 2019-02-16 11:40 | NUR ---
RT NOTES [address] ADDY MORILLO. 8LPM, 35% FIO2. PT SATURATION BETWEEN 94-95%. HR 95 AND FLUCTUATES. PT ON RESTRAINTS. PT RR BETWEEN 20-24. NO DISTRESS AT THIS TIME. WILL CONTINUE TO MONITOR PT. MIRIAM GONZALEZ AND VENDOR REPRESENTATIVES ZENY NOTIFIED.
--- NOTE | 2019-02-16 11:55 | NUR ---
NOTE ASSISTED DIRECTOR OF CLAIMS WITH INCONTINENCE CARE. LINEN AND GOWN CHANGED. ABD BINDER IN PLACE. PATIENT STABLE. HOB UP. ARINA GTF. DRAINING YELLOW IVON URINE. ALL NEEDS MET. CONT TO MONITOR
--- NOTE | 2019-02-16 14:00 | NUR ---
NOTE PATIENT AWAKE LOOKING AT TV. SUCTIONED SECRETION AND ARINA WELL. NO ACUTE DISTRESS. MEDICATION GIVEN ORDERED. ALL NEED MET. REPOSITIONED FOR COMFORT. CONT TO MONITOR. CALL LIGHT IN REACH. CONT TO MONITOR WITH FREQUENT VISUAL CHECK
[2019-02-16 15:30] VITALS: BP_SYST 124
--- NOTE | 2019-02-16 16:00 | NUR ---
NOTE HOB UP. ASSISTED RT WITH TRACH TIE CHANGE. TRACH TIE INTACT AND SECURED. GTUBE INTACT AND PATENT WITH RESIDUAL 15CC. SEROQUEL ADMINISTERED ORDERED. ALL NEEDS MET. CONT TO MONITOR
--- NOTE | 2019-02-16 16:19 | NUR ---
1525 BACK TO CPAP 5 ON THE VENT.
--- NOTE | 2019-02-16 18:54 | NUR ---
CLOSING NOTE PATIENT RESTING IN BED. NO S/SX PAIN NOTED. CONT ON CPAP ORDERED AND ARINA WELL. NO ACUTE DISTRESS. NO SOB. TRACH INTACT AND PATENT AND SECURED WITH TRACH TIE. PICC LINE TO MARISELA INTACT AND PATENT WITH DRESSING C/D/I. GTUBE INTACT AND PATENT WITH GOOD PLACEMENT AND ARINA GTF ORDERED. RESIDUAL NOTED AT 20CC. RAMOS CATH INTACT AND PATENT DRAINING IVON URINE. ARINA BILAT SCDs ORDERED. BILAT SOFT WRIST RESTRAINTS INTACT AND RELEASED Q2HR, ARINA WELL. CONT ON CONTACT PRECAUTIONS. CONT TO MONITOR. WILL ENDORSE TO ONCOMING SHIFT
--- NOTE | 2019-02-16 19:45 | NUR ---
OPENING NOTES Patient is resting in bed. No signs of acute respiratory distress observed, connected to CPAP as ordered. Trach is intact patent and secured with trach tie. HOB elevated. PICC line of MARISELA patent, dressings, c/d/i. G tube intact and patent, connected to G tube feeding as ordered. Hobson catheter draining to gravity, no kinks, not touching the floor, clear, bacilio urine noted. SCD's as ordered. Bilateral soft wrist restraints in place, released per order. Call light within reach, bed alarm on, bed at lowest position. Will continue to monitor.
[2019-02-16 20:00] VITALS: BP_SYST 125
--- NOTE | 2019-02-16 22:14 | NUR ---
Patient resting in bed, eyes closed. Responds to name and plan of care. Patient tolerated G tube feeding and medication well. Residual of 20 cc. Repositioned for comfort. HOB elevated. PICC line at [facility] [[email or web address]] patent, dressings c/d/i. Safety precautions in place. Will continue to monitor.
[2019-02-17] VITALS (8 sets, daily range): BP systolic 80–162
--- NOTE | 2019-02-17 00:07 | NUR ---
Patient awake, HOB elevated. No signs of acute respiratory distress or shortness of breath. Call light within reach, bed alarm on, bed at lowest position. Will continue to monitor.
[2019-02-17] MEDS: VANCOMYCIN HCL 1,500 MG in NS 250 ML IV SCH ×2 (01:49→14:06)
--- NOTE | 2019-02-17 02:10 | NUR ---
Patient awake, responds to name. HOB elevated. Trach suctioned, O2 Saturation of 98%. RT at bedside. Safety precautions in place. Will continue to monitor.
--- NOTE | 2019-02-17 04:48 | NUR ---
Patient is awake, agitated, incontinence care provided. No signs of acute respiratory distress observed. Safety precautions in place. Will continue to monitor.
[2019-02-17] MEDS: DILTIAZEM HCL 60 MG TABLET PO SCH ×5 (05:48→23:26)
[2019-02-17] MEDS: HALOPERIDOL LACTATE 5 MG/ML VIAL IM PRN ×3 (06:20→19:41)
[2019-02-17] MEDS: DIPHENHYDRAMINE INJ 50 MG/ML VIAL IVP PRN ×2 (06:25→19:40)
--- NOTE | 2019-02-17 06:40 | NUR ---
CLOSING NOTES Patient is alert, agitated. No signs of acute respiratory distress, shortness of breath at this time. RT at bedside. Patient has attempted to pull trach tube off and has Tbar. 40% oxygen, on at this time and has been reoriented to room. Haldol and Benadryl were given for agitation. Patient resting well after administration. PICC MARISELA patent, dressings c/d/i. Hobson catheter draining per gravity, no kinks, not touching the floor, bacilio urine noted. Restraints in place. G tube patent, residual 10 cc, tolerating well. Tube feeding running per MD order. Call light within reach, bed alarm on, and bed at lowest position. Will endorse care to oncoming shift.
[2019-02-17 07:15] LABS: EOSINOPHILS # (AUTO) 0.3 K/uL (0.0-0.4); EOSINOPHILS % (AUTO) 2.5 % (0.0-4.0); MEAN CORPUSCULAR HEMOGLOBIN 28 pg (27-31); MEAN CORPUSCULAR HGB CONC 32 % (32-36); MONOCYTES # (AUTO) 1.1 K/uL (0.0-1.0)
--- NOTE | 2019-02-17 07:45 | NUR ---
CLOSING NOTE PATIENT RESTING IN BED. NO S/SX PAIN NOTED. CONT ON CPAP ORDERED AND ARINA WELL. NO ACUTE DISTRESS. NO SOB. TRACH INTACT AND PATENT AND SECURED WITH TRACH TIE. PICC LINE TO MARISELA INTACT AND PATENT WITH DRESSING C/D/I. GTUBE INTACT AND PATENT WITH GOOD PLACEMENT AND RAINA GTF ORDERED. ABDOMINAL BINDER IN PLACE. RESIDUAL NOTED AT 10CC. RAMOS CATH INTACT AND PATENT DRAINING IVON URINE. ARINA BILAT SCDs ORDERED. BILAT SOFT WRIST RESTRAINTS INTACT AND WILL RELEASE Q2HR, ARINA WELL. CONT ON CONTACT PRECAUTIONS. CONT TO MONITOR. Addendum: 02/17/19 at 0946 by Shena Castaneda RN OPENING NOTES
--- NOTE | 2019-02-17 07:46 | NUR ---
OPENING NOTE PATIENT RESTING IN BED. NO S/SX PAIN NOTED. CONT ON CPAP ORDERED AND ARINA WELL. NO ACUTE DISTRESS. NO SOB. TRACH INTACT AND PATENT AND SECURED WITH TRACH TIE. PICC LINE TO MARISELA INTACT AND PATENT WITH DRESSING C/D/I. GTUBE INTACT AND PATENT WITH GOOD PLACEMENT AND ARINA GTF ORDERED. ABDOMINAL BINDER IN PLACE. RESIDUAL NOTED AT 10CC. RAMOS CATH INTACT AND PATENT DRAINING IVON URINE. ARINA BILAT SCDs ORDERED. BILAT SOFT WRIST RESTRAINTS INTACT AND WILL RELEASE Q2HR, ARINA WELL. CONT ON CONTACT PRECAUTIONS. CONT TO MONITOR.
[2019-02-17 07:53] LABS: BASOPHILS # (AUTO) 0.1 K/uL (0.0-0.2); BASOPHILS % (AUTO) 1.1 % (0.0-2.0); HEMATOCRIT 27.6 % (36-54); HEMOGLOBIN 8.9 g/dL (14.0-18.0); LYMPHOCYTES % (AUTO) 8.3 % (20.5-51.5); MEAN CORPUSCULAR VOLUME 87 fL (79.0-98.0); MONOCYTES % (AUTO) 8.9 % (1.7-9.3); NEUTROPHILS # (AUTO) 9.7 K/uL (1.8-7.7); NEUTROPHILS % (AUTO) 79.2 % (40.0-70.0); PLATELET COUNT (AUTO) 288 K/uL (130-430); RED BLOOD CELL COUNT(AUTO) 3.17 MIL/uL (4.2-6.2); RED CELL DISTRIBUTION WIDTH 22.8 % (9.0-15.0); WHITE BLOOD COUNT (AUTO) 12.2 K/uL (4.8-10.8)
[2019-02-17 08:22] LABS: ALBUMIN 2.5 g/dL (3.4-4.8); CREATININE 0.7 mg/dL (0.55-1.30); DIGOXIN 0.7 ng/mL (0.80-2.00); POTASSIUM 3.8 mmol/L (3.5-5.1); TOTAL BILIRUBIN 1.2 mg/dL (0.0-1.0)
[2019-02-17 08:25] LABS: CALCIUM 9.3 mg/dL (8.4-11.0)
[2019-02-17] MEDS: NAPH,MB-DB/K PH,MBDB 250 MG TAB GT SCH ×2 (09:00→21:00)
[2019-02-17] MEDS: cefTRIAXone 1 GM in D5W 50 ML IV SCH (09:06)
[2019-02-17] MEDS: QUEtiapine FUMARATE 100 MG TABLET GT SCH ×4 (09:15→21:00)
[2019-02-17] MEDS: POTASSIUM CHLORIDE 20 MEQ/PKT PACKET NG SCH ×2 (09:15→21:00)
[2019-02-17] MEDS: PANTOPRAZOLE SODIUM 40 MG/VIAL (PROTONIX) IVP SCH ×2 (09:15→23:26)
[2019-02-17] MEDS: VITAMIN B COMPLEX 1 CAP/TAB NG SCH (09:15)
[2019-02-17] MEDS: CHOLECALCIFEROL (VITAMIN D3) 2,000 UNIT TABLET NG SCH (09:15)
[2019-02-17] MEDS: CARVEDILOL 6.25 MG TABLET (COREG) GT SCH ×2 (09:16→21:00)
[2019-02-17] MEDS: MULTIVITS,CA,MINERALS/IRON/FA 1 TABLET NG SCH (09:16)
[2019-02-17] MEDS: HYDROCORTISONE SOD SUCC 100 MG/2 ML VIAL IVP SCH (09:16)
[2019-02-17] MEDS: DIGOXIN 0.125 MG TABLET GT SCH (09:16)
[2019-02-17] MEDS: ASCORBIC ACID 500 MG TABLET NG SCH (09:16)
[2019-02-17] MEDS: FUROSEMIDE 20 MG/2 ML VIAL IVP SCH (09:17)
[2019-02-17] MEDS: LOSARTAN POTASSIUM 50 MG TABLET (COZAAR) NG SCH ×2 (09:17→21:00)
--- NOTE | 2019-02-17 09:40 | NUR ---
MEDS/ ALL DUE MEDS ADMINISTERED ORDERED EXCEPT FOR NEUTRO-PHOS IS UNAVAILABLE. CALLED AND INFORMED PHARMACY ABOUT NEUTRO-PHOS; AWAITING ON MEDICATION. TEACHING DONE ON MEDICATION AND ASE SEEN AND EXAMINED BY AT BEDSIDE.
--- NOTE | 2019-02-17 10:40 | NUR ---
1040 pt suctioned small thick bloody secretions. hr 84 sat 93% rr 29. pt tolerating t-bar well. will continue to monitor. Addendum: 02/17/19 at 1042 by Heydi Linares RT Amended: Links added.
--- NOTE | 2019-02-17 11:45 | NUR ---
NOTE ASSISTED PHONE CIRCUIT OPERATOR WITH INCONTINENCE CARE WITH LINEN AND GOWN CHANGED. SUCTIONED PATIENT; ARINA WELL. TRACH CARE PROVIDED AND TRACH SECURED WITH TRACH TIE. NO ACUTE DISTRESS. NO SOB. PATIENT WANTED TV ON. ALL NEEDS MET. CONT TO MONITOR.
--- NOTE | 2019-02-17 14:10 | NUR ---
NOTE ADMINISTERED ALL DUE MEDS INCLUDING VANCO ORDERED, ARINA WELL. HOB UP. ARINA GTF ORDERED. ALL NEEDS MET. CONT TO MONITOR
--- NOTE | 2019-02-17 14:40 | NUR ---
SEEN AND EXAMINED BY AT BEDSIDE
--- NOTE | 2019-02-17 14:44 | NUR ---
Called for swallow eval. Left message with ST Chrissy, @ [phone]
--- NOTE | 2019-02-17 15:30 | NUR ---
NOTE PATIENT REMOVED TBAR. CONNECTED TBAR; TRACH INTACT AND PATENT AND SECURED WITH TRACH TIE. NO ACUTE DISTRESS. NO SOB. SpO2@95% AT THIS TIME. EDUCATED PATIENT ON RISKS OF REMOVING/DISCONNECTING TUBES/LINES. BILAT WRIST RESTRAINTS INTACT. ALL NEEDS MET. KEPT CLEAN AND DRY. HOB UP. CONT TO MONITOR WITH FREQUENT VISUAL CHECKS
--- NOTE | 2019-02-17 16:31 | NUR ---
SEEN AND EXAMINED BY AT BEDSIDE
--- NOTE | 2019-02-17 16:50 | NUR ---
Nutrition F/U RD reviewed pt's current EMR including diet Hx, physician notes, nursing notes, pertinent labs/meds/procedures, care trends, and care activity. Current Nutrition Support: Vital AF 1.2 at 80 ml/hr (goal rate), Free Water Flush: 100 ml Q6h via GT x3 days Subjective information: Pt seen in bed, +t-bar, w/ TF infusing (Vital AF 1.2) at 50 ml/hr; so far, 153 ml infused, providing [address] inquired w/ RN regarding reason as to why pt was not at goal rate for TF yet -- RN stated that endorsing nursing staff reported that that TF is set for 50 ml/hr. RD provided RN w/ pt complete diet order, including water flush of 100 ml Q6h. Per RN, pt will have ST speech eval tomorrow, 02/18/19. ESTIMATED NUTRITIONAL REQUIREMENTS NEW CALORIES/DAY: 6654-2950 kcal/day (MSJ x 1-1.2 CBW d/t obesity, maintenance) PROTEIN/DAY: 127-196 gm/day (1.3-2 gm/kg Adj IBW for obesity, COPD) FLUID/DAY: Per physician d/t Hx of CHF PES 1. Morbid Obesity r/t inability to access healthier food choices AEB possible consumption of high calorie food and beverage from fast food restaurants and convenient stores, homelessness, and BMI 40 kg/m2. *no longer applicable 2. Inadequate nutrient intake r/t medication intake AEB PO intake not meeting 75% of estimated needs and nursing staff report. *ongoing 3. Unintentional wt loss related to possible lean muscle mass depletion as evidenced by possible 47#/15% wt change within 1 month. *ongoing 4. Inadequate EN support related to critical illness as evidenced by no currently infusing nutrition support. *resolved 5. Inadequate EN support r/t increased caloric needs AEB current EN regimen provides <75% of estimated calorie needs. *ongoing I: 1. Recommend Vital AF 1.2 at 80 ml/hr (goal rate), Free Water Flush: 100 ml Q6h via GT Provides: 2304 kcal/day, 144 gm protein/day, and 1954 ml free water/day Meets: 105% of lower end of estimated caloric needs and 113% of lower end of estimated protein needs M: Monitor tolerance to EN support w/ goal of pt meeting at least 85% of estimated nutritional needs, labs trending WNL, normal GI function, skin integrity/wt maintenance. E: High Risk; F/U within 2-3 days
--- NOTE | 2019-02-17 16:55 | NUR ---
Dietitian Recommendations * Recommend Vital AF 1.2 at 80 ml/hr (goal rate), Free Water Flush: 100 ml Q6h via GT Provides: 2304 kcal/day, 144 gm protein/day, and 1954 ml free water/day Meets: 105% of lower end of estimated caloric needs and 113% of lower end of estimated protein needs LP, RD Please refer to Nutrition F/U for details.
[2019-02-17] MEDS: MORPHINE 2 MG/ML INJ. SYRINGE IVP PRN (18:49)
--- NOTE | 2019-02-17 18:51 | NUR ---
Paged Dr. Lombardi s/w Lesly.
--- NOTE | 2019-02-17 18:55 | NUR ---
SPOKE TO DR. MARCUS AND REPORTED TO MD PATIENT WAS BEING PUT BACK ONTO VENT FOR NOC BY RT. VENT KEPT ALARMING HIGH PRESSURE. PATIENT ASSESSED. THEN PATIENT STARTED DESATURATING. WITH THREE RT AT BEDSIDE. RT BEGAN BAGGING PATIENT THROUGH TRACH AND UPON BAGGING NOTED SUBCUTANEOUS EMPHYSEMA TO PATIENTS RIGHT CLAVICLE AND FACE. RT STOPPED BAGGING THROUGH TRACH AND BEGAN BAGGING THROUGH MASK. PATIENTS SAT WENT UP TO 97%. PATIENT CURRENTLY ON O2 MASK SATURATING @92% ON THE WAY TO SEE PATIENT.
--- NOTE | 2019-02-17 19:00 | NUR ---
CLOSING NOTE PATIENT IS AWAKE ON O2 MASK AND SATURATING AT 92% AND STABLE. AWAITING FOR TO COME AND ASSESS PATIENTS TRACH. TRACHEOTOMY TRAY, TRACH AND ENDOTRACHEAL TUBE AT BEDSIDE. THREE RT AT BEDSIDE WITH PATIENT. ENDORSED TO PAPO PINEDA.
--- NOTE | 2019-02-17 19:01 | NUR ---
1829 Was placing pt back on ventilator for noc. vent alarm high pressure. pt started desating. bagged pt through trach, upon bagging patient noticed subcutaneous emphysema right clavicle and face. Stopped and bagged pt with mask. pt sat went up to 97%. rn aware and dr. Lombardi and dr. lofton. notified. pt on o2 mask sat 92% dr. lombardi on way to evaluate. will continue monitoring. Addendum: 02/17/19 at 1909 by Heydi Linares RT Amended: Links added.
--- NOTE | 2019-02-17 19:54 | NUR ---
Paged Dr. Pelaez s/w Zulay
[2019-02-17] MEDS: ACETAMINOPHEN 650 MG/20.3 ML UDC NG PRN (20:03)
[2019-02-17] MEDS: HALOPERIDOL 5 MG TABLET (HALDOL) PO SCH (21:00)
[2019-02-17] MEDS: DIPHENHYDRAMINE HCL 50 MG CAPSULE PO SCH (21:00)
--- NOTE | 2019-02-17 21:00 | NUR ---
AT 2050 P.M, TRANSFER PATIENT TO ICU ROOM 7, RECEIVED NURSING REPORT FROM PAPO Mederos, PATIENT IS AWAKE SEVERE CONFUSION RESTLESS, UNABLE TO FOLLOW COMMANDS ,BILATERAL WRISTS WEAR SOFT RESTRAINT FOR SAFETY AND PATIENT IS VERY AGITATION ,TEMPERATURE 99.5 .F ( AFTER TYLENOL GAVE) H.R 88 IS CONTROL A-FIB, TRACHEAL AREA WITH SUTURE LINE OPEN TO AIR, TRACHEAL SIZE : BIVONO 8.0 VIA VENTILATOR, VENT SETTING : AC 12, TV 350, FIO2 40% PEEP 0, G-T CLAMPED COVERED ABDOMEN BLINDER, NPO FOR CHEST C-T WITH CONTRAST, RIGHT UPPER PICC LINE DOUBLE LUMENS HAS BLOOD RETURN,RAMOS INTACT, DRAN PUT DARK IVON AND SEDIMENT URINE, GIVE TOTAL CARE, KEEP CLEAN, SAFETY,COMFORTABLE SUPPORT ALL TIMES
--- NOTE | 2019-02-17 21:08 | NUR ---
TELEPHONE CONSENT CONTACTED PTS MICHAEL FOR CONSENT FOR CT WITH CONTRAST AT THIS TIME. FAMILY UPDATED ON PT CONDITION. WILL CONTINUE TO MONITOR PT.
--- NOTE | 2019-02-17 21:30 | NUR ---
pt.transferred to the unit;icu.@change of shift. was present; re-placed /placed a trach#8.pt.had presented low 02-sat%. pt.connected to the ventilator post trach placement.tv;350,fio-2%=40%,a/c;12,peep. had order cxr post placement. attended to.pt.presented unstable status.pt.presented affect;restless,aggressive.i administered haldol;5mg im w/benadryl:50mg ivp.i attended to the v/s;pt.presented temp;i administered tylenol;650mg via the g-tube.i placed the ice packs x4.pt.presents g-tube; clamped.pt.prestr durbin catheter.intact;patent.pt.preset picc line;location;lt.bicept. was paged re;pt's change in status. /donna ordere trasnfer to icu.p/t the transfer ordered;abg's and a ct-chest:w/contrast.nsg attempt to contact;family ;to no avail and friends of the family:to provide consent for the contrast administration.as of the transfer nsg unable to procur the consent;convey the scenario to the icu nsg.pt.was transferred into the icu unit.pt.presents isolation status:mrsa sputum conveyed to the receiving nsg.vent settings continued as previous order. is to r/o pnuemo-thorax.all belongings transferred w/the pt. pt.presents restraints;wrist;bi-lateral.pt.remained in restraints.i provided the abg's results to sarah/chg. ordered to apprised /liu of the results;abg's.i have conveyed the pt's report/data to filomena.medications/ g-tube feed accompanied the pt.
[2019-02-17] MEDS ORDERED: IOHEXOL 350 mgI/mL, 150 ML INFUS..BTL IV ONE (21:37)
--- NOTE | 2019-02-17 21:44 | NUR ---
DR. DALY PAGED DR. DALY AT THIS TIME. SPOKE WITH DEZ AT THE EXCHANGE.
--- NOTE | 2019-02-17 22:10 | NUR ---
PATIENT,S FACE AND SCROTUM STILL SO SWOLLEN ( BEFORE TRANSFER TO ICU ), AT [id number] P.M SENT PATIENT TO C-T ROOM FOLLOW UP STAT CHEST C-T
[2019-02-17] MEDS ORDERED: NOREPINEPHRINE BITARTRATE 4 MG in D5W 246 ML IV PRN ×2 (22:45→23:15)
--- NOTE | 2019-02-17 22:45 | NUR ---
DR. DALY 2ND PAGE TO DR. DALY AT THIS TIME. SPOKE WITH DEZ AT THE EXCHANGE.
--- NOTE | 2019-02-17 22:50 | NUR ---
PATIENT BLOOD PRESSURE 78/46-80/32 MMHG, REPORTED TO , ORDERED ON LEVOPHED DRIP, KEEP SBP > 90 MMHG
[2019-02-17] MEDS ORDERED: NOREPINEPHRINE 4 MG/4 ML VIAL IV ONE (22:55)
--- NOTE | 2019-02-17 23:00 | NUR ---
DR. DALY MADE MD AWARE OF PT STATUS, ABG RESULTS, AND CURRENT VENT SETTINGS. NO CHANGES IN ORDERS RECEIVED.
[2019-02-17] MEDS: LORazepam 2 MG/ML VIAL IVP PRN (23:04)
[2019-02-18] VITALS (33 sets, daily range): BP systolic 98–143
--- NOTE | 2019-02-18 01:10 | NUR ---
ORDERED CHANGE VENTILATOR TIDAL VOLUME TO 450 BY RADHA Cavazos
--- NOTE | 2019-02-18 01:23 | NUR ---
B.P 131/64 MMHG, O2 SAT. 99 % ORDERED TITRATED FIO2 TO 35%, LEVOPHED DRIP 8 MCG/MIN
--- NOTE | 2019-02-18 01:24 | NUR ---
AT 1940, PATIENT PLACED ON [facility] VENTILATOR WITH NEW TRACH TUBE (BIVONA #8.0). REPLACED BY DR MARCUS. PER DR MARCUS TO REMOVE PEEP DUE TO SUBCUTANEOUS EMPHYSEMA. VENT SETTING A/C 12, VT 450, 40% FIO2.
[2019-02-18] MEDS: VANCOMYCIN HCL 1,500 MG in NS 250 ML IV SCH ×2 (01:51→14:05)
[2019-02-18] MEDS: DIPHENHYDRAMINE INJ 50 MG/ML VIAL IVP PRN (04:24)
[2019-02-18] MEDS: DILTIAZEM HCL 60 MG TABLET PO SCH ×3 (05:20→18:00)
--- NOTE | 2019-02-18 05:30 | NUR ---
AT 0530 A.M ,BLOOD PRESSURE 129/80 MMHG, H.R 82 ,O2 SAT. 98 %, ORDERED TITRATED OFF LEVOPHED DRIP, PATIENT IS AWAKE, ABLE TO ANSWER SIMPLE QUESTION, TURN ON TV SHOW FOR HIM, RAILS UP, CALL LIGHT IN REACH, KEEP CLOSE MONITOR
--- NOTE | 2019-02-18 07:20 | NUR ---
Opening Note Received plan of care from endorsing nurse Kathryn PINEDA. Completed patient round.
--- NOTE | 2019-02-18 07:28 | NUR ---
GIVE COMPLETE NURSING REPORT TO DAY SHIFT TIFFANIE Mederos
[2019-02-18] MEDS: VITAMIN B COMPLEX 1 CAP/TAB NG SCH (08:20)
[2019-02-18] MEDS: cefTRIAXone 1 GM in D5W 50 ML IV SCH (08:20)
[2019-02-18] MEDS: NAPH,MB-DB/K PH,MBDB 250 MG TAB GT SCH ×2 (08:21→20:56)
[2019-02-18] MEDS: ASCORBIC ACID 500 MG TABLET NG SCH (08:21)
[2019-02-18] MEDS: MULTIVITS,CA,MINERALS/IRON/FA 1 TABLET NG SCH (08:21)
[2019-02-18] MEDS: DIGOXIN 0.125 MG TABLET GT SCH (08:21)
[2019-02-18] MEDS: CHOLECALCIFEROL (VITAMIN D3) 2,000 UNIT TABLET NG SCH (08:21)
[2019-02-18] MEDS: HALOPERIDOL 5 MG TABLET (HALDOL) PO SCH ×3 (08:22→20:57)
[2019-02-18] MEDS: CARVEDILOL 6.25 MG TABLET (COREG) GT SCH ×2 (08:22→20:55)
[2019-02-18] MEDS: QUEtiapine FUMARATE 100 MG TABLET GT SCH ×4 (08:22→20:56)
[2019-02-18] MEDS: PANTOPRAZOLE SODIUM 40 MG/VIAL (PROTONIX) IVP SCH ×2 (08:23→20:55)
[2019-02-18] MEDS: HYDROCORTISONE SOD SUCC 100 MG/2 ML VIAL IVP SCH (08:23)
[2019-02-18] MEDS: FUROSEMIDE 20 MG/2 ML VIAL IVP SCH (08:23)
[2019-02-18] MEDS: POTASSIUM CHLORIDE 20 MEQ/PKT PACKET NG SCH ×2 (08:24→20:56)
[2019-02-18 08:36] LABS: BASOPHILS # (AUTO) 0.1 K/uL (0.0-0.2); BASOPHILS % (AUTO) 0.8 % (0.0-2.0); EOSINOPHILS # (AUTO) 0.2 K/uL (0.0-0.4); EOSINOPHILS % (AUTO) 1.5 % (0.0-4.0); HEMATOCRIT 27.1 % (36-54); HEMOGLOBIN 8.9 g/dL (14.0-18.0); LYMPHOCYTES % (AUTO) 8.5 % (20.5-51.5); MEAN CORPUSCULAR HEMOGLOBIN 28 pg (27-31); MEAN CORPUSCULAR HGB CONC 33 % (32-36); MEAN CORPUSCULAR VOLUME 86 fL (79.0-98.0); MONOCYTES # (AUTO) 0.7 K/uL (0.0-1.0); MONOCYTES % (AUTO) 5.7 % (1.7-9.3); NEUTROPHILS # (AUTO) 9.8 K/uL (1.8-7.7); NEUTROPHILS % (AUTO) 83.5 % (40.0-70.0); PLATELET COUNT (AUTO) 274 K/uL (130-430); RED BLOOD CELL COUNT(AUTO) 3.15 MIL/uL (4.2-6.2); RED CELL DISTRIBUTION WIDTH 22.6 % (9.0-15.0); WHITE BLOOD COUNT (AUTO) 11.7 K/uL (4.8-10.8)
--- NOTE | 2019-02-18 08:40 | NUR ---
S.T. S.T. ORDER RECEIVED AND ATTEMPTED. PT HAS BEEN TRANSFERRED TO ICU. DISCUSSED W/ CHARGE NURSE DAGOBERTO. CONCUR WITH DAGOBERTO THAT IT'S BEST TO HOLD OFF EVAL AT THIS TIME D/T CHANGE IN MEDICAL CONDITION. DAGOBERTO WILL CANCEL ORDER AND WILL RE-EVAL WHEN INDICATED.
[2019-02-18 08:50] LABS: CREATININE 0.62 mg/dL (0.55-1.30); POTASSIUM 3.8 mmol/L (3.5-5.1)
[2019-02-18] MEDS: LOSARTAN POTASSIUM 50 MG TABLET (COZAAR) NG SCH ×2 (08:51→20:56)
[2019-02-18] MEDS: DIPHENHYDRAMINE HCL 50 MG CAPSULE PO SCH ×3 (08:52→20:56)
--- NOTE | 2019-02-18 15:26 | NUR ---
Leasing Machine Tender: Follow up with pt. SUPPLY CATALOGUER checked in with campaign marketing manager who stated pt. was settled. Pt. has a procedure done and may have been tired. Pt did not have any visitors during this time. SUPPLY CATALOGUER went to pts. room in ICU but did not get to speak to him. Pt. was quietly resting. SUPPLY CATALOGUER will remain available as needed.
--- NOTE | 2019-02-18 19:16 | NUR ---
Closing Note Provided plan of care to receiving nurse MIRIAM Florian via sbar. Completed patient round.
--- NOTE | 2019-02-18 19:45 | NUR ---
Opening Note Pt in bed, Alert to person. Unable to speak, but able to follow simple commands. Pt A-fib on the monitor. Pt trach to vent. Saturating in the mid-high 90s. Pt has MARISELA PICC line,. Site C/D/I. No s/s of infiltration noted. Pt G-tube in place running feeding. Minimal residual noted. Pt has Hobson catheter draining urine to gravity. Pt has restraints bilaterally. No skin breakdown noted. Pt turned Q2H. bed locked in lowest position, call light in reach, and safety precautions in place. Will continue to monitor.
[2019-02-19] VITALS (27 sets, daily range): BP systolic 95–130
--- NOTE | 2019-02-19 00:19 | NUR ---
RN Rounds Pt in bed asleep. No s/s of distress noted. VSS. Will continue to monitor.
[2019-02-19] MEDS: VANCOMYCIN HCL 1,500 MG in NS 250 ML IV SCH ×2 (01:06→15:03)
--- NOTE | 2019-02-19 02:15 | NUR ---
RN Rounds Pt in bed asleep. Pt having episodes of low HR getting as low as 40. No s/s of distress however. Pt asymptomatic. Will continue to monitor.
--- NOTE | 2019-02-19 04:25 | NUR ---
RN Rounds Pt in bed asleep. No s/s of distress noted. VSS. Will continue to monitor.
[2019-02-19 05:51] LABS: BASOPHILS # (AUTO) 0.1 K/uL (0.0-0.2); BASOPHILS % (AUTO) 1.2 % (0.0-2.0); EOSINOPHILS # (AUTO) 0.4 K/uL (0.0-0.4); EOSINOPHILS % (AUTO) 4.1 % (0.0-4.0); HEMATOCRIT 24.4 % (36-54); HEMOGLOBIN 8.1 g/dL (14.0-18.0); LYMPHOCYTES # (AUTO) 1.1 K/uL (1.0-5.5); LYMPHOCYTES % (AUTO) 12.7 % (20.5-51.5); MEAN CORPUSCULAR HEMOGLOBIN 29 pg (27-31); MEAN CORPUSCULAR HGB CONC 33 % (32-36); MEAN CORPUSCULAR VOLUME 87 fL (79.0-98.0); MONOCYTES # (AUTO) 0.8 K/uL (0.0-1.0); NEUTROPHILS # (AUTO) 6.4 K/uL (1.8-7.7); PLATELET COUNT (AUTO) 261 K/uL (130-430); RED BLOOD CELL COUNT(AUTO) 2.82 MIL/uL (4.2-6.2); RED CELL DISTRIBUTION WIDTH 22.9 % (9.0-15.0); WHITE BLOOD COUNT (AUTO) 8.8 K/uL (4.8-10.8)
[2019-02-19] MEDS: DILTIAZEM HCL 60 MG TABLET PO SCH ×2 (06:00)
[2019-02-19 06:19] LABS: ALBUMIN 2.1 g/dL (3.4-4.8); CALCIUM 8.8 mg/dL (8.4-11.0); CREATININE 0.65 mg/dL (0.55-1.30); FREE T4 (FREE THYROXINE) 1.2 ng/dl (0.8-1.5); POTASSIUM 3.7 mmol/L (3.5-5.1); THYROID STIMULATING HORMONE 0.34 uIu/mL (0.36-3.74); TOTAL BILIRUBIN 0.7 mg/dL (0.0-1.0)
--- NOTE | 2019-02-19 06:43 | NUR ---
Closing Note Pt in bed asleep. Pt remains confused, but able to follow simple commands. A-fib on the monitor. Pt trach to vent. No s/s of distress noted. Pt has MARISELA PICC Line in palce. IV site C/D/I. No s/s of infiltration noted. G-tube in place running tubefeeding. Pt tolerating well. No residual noted. Pt has Hobson catheter in place draining urine to gravity. Pt Being turned Q2H. Restraints in place bilaterally. Bed locked in lowest position, call light in reach, and safety precautions in place. Will endorse to oncoming RN.
--- NOTE | 2019-02-19 07:12 | NUR ---
Endorsement Report given to oncoming RN at bedside via SBAR approach.
--- NOTE | 2019-02-19 07:52 | NUR ---
AM ASSESSMENT. PT AWAKENED TO VERBAL COMMAND, TRACH SITE WITH MINIMAL PINK TINGED DRAINAGE, PT SAID "I HAD A DREAM", WITH HIS THUMB UP, AFEBRILE, NO PERIPHERAL EDEMA, RESTRAINTS OFF AND ON, REPOSITIONED IN BED, INCONTINENT OF BOWEL, GOOD PERINEAL HYGIENE, ORAL SUCTIONING AND ORAL HYGIENE DONE.
--- NOTE | 2019-02-19 08:00 | NUR ---
TRACH CARE. SLIT GAUZE DRESSING REMOVED FROM TRACH SITE, CLEANED AREA WITH GAUZE SPRAYED WITH SALINE, GENTLE CARE, SKIN CLEAN AND PINK IN COLOR, THEN PLACED DRY SLIT GAUZE PAD INTO TRACH. PATIENT TOLERATED WELL.
[2019-02-19] MEDS: POTASSIUM CHLORIDE 20 MEQ/PKT PACKET NG SCH (09:04)
[2019-02-19] MEDS: PANTOPRAZOLE SODIUM 40 MG/VIAL (PROTONIX) IVP SCH ×2 (09:04→23:11)
[2019-02-19] MEDS: FUROSEMIDE 20 MG/2 ML VIAL IVP SCH (09:05)
[2019-02-19] MEDS: HYDROCORTISONE SOD SUCC 100 MG/2 ML VIAL IVP SCH (09:05)
[2019-02-19] MEDS: VITAMIN B COMPLEX 1 CAP/TAB NG SCH (09:06)
[2019-02-19] MEDS: NAPH,MB-DB/K PH,MBDB 250 MG TAB GT SCH ×2 (09:06→23:11)
[2019-02-19] MEDS: DIGOXIN 0.125 MG TABLET GT SCH (09:07)
[2019-02-19] MEDS: CHOLECALCIFEROL (VITAMIN D3) 2,000 UNIT TABLET NG SCH (09:07)
[2019-02-19] MEDS: MULTIVITS,CA,MINERALS/IRON/FA 1 TABLET NG SCH (09:07)
[2019-02-19] MEDS: ASCORBIC ACID 500 MG TABLET NG SCH (09:08)
[2019-02-19] MEDS: CARVEDILOL 6.25 MG TABLET (COREG) GT SCH ×2 (09:08→23:19)
[2019-02-19] MEDS: HALOPERIDOL 5 MG TABLET (HALDOL) PO SCH ×3 (09:08→23:11)
[2019-02-19] MEDS: LOSARTAN POTASSIUM 50 MG TABLET (COZAAR) NG SCH ×2 (09:09→23:19)
[2019-02-19] MEDS: cefTRIAXone 1 GM in D5W 50 ML IV SCH (09:12)
[2019-02-19] MEDS: QUEtiapine FUMARATE 100 MG TABLET GT SCH ×4 (09:13→23:11)
[2019-02-19] MEDS: DIPHENHYDRAMINE HCL 50 MG CAPSULE PO SCH ×3 (09:15→23:11)
--- NOTE | 2019-02-19 12:34 | NUR ---
Nutrition F/U RD reviewed pt's current EMR including diet Hx, physician notes, nursing notes, pertinent labs/meds/procedures, care trends, and care activity. Current Nutrition Support: Vital AF 1.2 at 80 ml/hr (goal rate), Free Water Flush: 100 ml Q6h via GT x5 days Subjective information: Pt seen sleeping, w/ vent to T-bar, w/ TF infusing (Vital AF 1.2) at 80 ml/hr; so far, 360 ml infused, providing 432 kcal. Per RN, pt has been tolerating TF well, less than 5 ml residuals and BM x1 this morning as well. Per ST notes, speech eval was cancelled d/t pt's change in medical condition -- pt was seen in ICU today. ESTIMATED NUTRITIONAL REQUIREMENTS NEW CALORIES/DAY: 2409 kcal/day (REE = PSU 2002b d/t critical illness, ICU status) PROTEIN/DAY: 127-196 gm/day (1.3-2 gm/kg Adj IBW for obesity, COPD) FLUID/DAY: Per physician d/t Hx of CHF PES 1. Morbid Obesity r/t inability to access healthier food choices AEB possible consumption of high calorie food and beverage from fast food restaurants and convenient stores, homelessness, and BMI 40 kg/m2. *no longer applicable 2. Inadequate nutrient intake r/t medication intake AEB PO intake not meeting 75% of estimated needs and nursing staff report. *ongoing 3. Unintentional wt loss related to possible lean muscle mass depletion as evidenced by possible 47#/15% wt change within 1 month. *ongoing 4. Inadequate EN support related to critical illness as evidenced by no currently infusing nutrition support. *resolved 5. Inadequate EN support r/t increased caloric needs AEB current EN regimen provides <75% of estimated calorie needs. *improved I: 1. Recommend continuing Vital AF 1.2 at 80 ml/hr (goal rate), Free Water Flush: 100 ml Q6h via GT Provides: 2304 kcal/day, 144 gm protein/day, and 1954 ml free water/day Meets: 96% of estimated caloric needs and 113% of lower end of estimated protein needs M: Monitor tolerance to EN support w/ goal of pt meeting at least 85% of estimated nutritional needs, labs trending WNL, normal GI function, skin integrity/wt maintenance. E: High Risk; F/U within 2-3 days
--- NOTE | 2019-02-19 12:44 | NUR ---
Dietitian Recommendations 1. Recommend continuing Vital AF 1.2 at 80 ml/hr (goal rate), Free Water Flush: 100 ml Q6h via GT Provides: 2304 kcal/day, 144 gm protein/day, and 1954 ml free water/day Meets: 96% of estimated caloric needs and 113% of lower end of estimated protein needs LP, RD Please refer to Nutrition F/U for details.
--- NOTE | 2019-02-19 13:05 | NUR ---
RT NOTES Vent settings to CPAP [address] Garcia's order. No adverse reactions noted. @1310 pt. cont. to tolerate new Vent settings well.Will cont. to monitor pt. Addendum: 02/19/19 at 1326 by Ruby Larkin RT Amended: Links added.
--- NOTE | 2019-02-19 18:41 | NUR ---
. DR KEARNS CAME IN AND EXAMINED PATIENT. NEW ORDERS RECEIVED, TO TRANSFER PT TO [facility].
--- NOTE | 2019-02-19 19:00 | NUR ---
REPORT. GIVEN TO SALES REPRESENTATIVE GROCERIES NURSE MIRIAM BELL. PT TO BE TRANSFERRED TO TELEMETRY DEPT.
--- NOTE | 2019-02-19 19:10 | NUR ---
Opening Note Pt in bed, Alert but confused. VSS. A-fib on monitor. Pt trach to vent, saturating in the mid-high 90s. No s/s of distress noted. PICC line C/D/I. no s/s of infiltration noted. Pt durbin catheter draining urine to gravity. Rectal-tube in place. No s/s of leaking. Bed locked in lowest position, call light in reach, and safety precautions observed. Pt awaiting transfer. Will continue to monitor.
--- NOTE | 2019-02-19 19:55 | NUR ---
TRANSFERRED PT TO 123A VIA BED ACCPD. BY INVENTORY TECHNICIAN
--- NOTE | 2019-02-19 20:00 | NUR ---
TRANSFER Pt received from ICU via bed accompanied by Nuclear Medicine Technologist , ICU staff and RT to room 123A. No belongings at bedside. Pt trach to vent, tolerating current vent settings. GT clamped, Right upper arm with PICC, dressing intact. Hobson cath also in use. Draining bacilio color urine.
--- NOTE | 2019-02-19 20:30 | NUR ---
Endorsement Report given to RN assuming care of Pt.
[2019-02-19] MEDS ORDERED: NOREPINEPHRINE 4 MG/4 ML VIAL IV ONE (20:48)
[2019-02-20 01:38] VITALS: BP_SYST 128
[2019-02-20] MEDS: VANCOMYCIN HCL 1,500 MG in NS 250 ML IV SCH ×2 (02:22→13:58)
[2019-02-20] MEDS: POTASSIUM CHLORIDE 20 MEQ/PKT PACKET NG SCH ×3 (05:20→21:34)
[2019-02-20 07:03] LABS: BASOPHILS # (AUTO) 0.1 K/uL (0.0-0.2); BASOPHILS % (AUTO) 1.2 % (0.0-2.0); EOSINOPHILS # (AUTO) 0.4 K/uL (0.0-0.4); EOSINOPHILS % (AUTO) 4.9 % (0.0-4.0); HEMATOCRIT 26.7 % (36-54); HEMOGLOBIN 8.8 g/dL (14.0-18.0); LYMPHOCYTES # (AUTO) 1.1 K/uL (1.0-5.5); LYMPHOCYTES % (AUTO) 14.1 % (20.5-51.5); MEAN CORPUSCULAR HEMOGLOBIN 28 pg (27-31); MEAN CORPUSCULAR HGB CONC 33 % (32-36); MEAN CORPUSCULAR VOLUME 86 fL (79.0-98.0); MONOCYTES # (AUTO) 0.6 K/uL (0.0-1.0); MONOCYTES % (AUTO) 7.7 % (1.7-9.3); NEUTROPHILS # (AUTO) 5.4 K/uL (1.8-7.7); NEUTROPHILS % (AUTO) 72.1 % (40.0-70.0); PLATELET COUNT (AUTO) 270 K/uL (130-430); RED CELL DISTRIBUTION WIDTH 23.1 % (9.0-15.0); WHITE BLOOD COUNT (AUTO) 7.4 K/uL (4.8-10.8)
[2019-02-20 07:24] LABS: ALBUMIN 2.2 g/dL (3.4-4.8); CALCIUM 9.2 mg/dL (8.4-11.0); CREATININE 0.54 mg/dL (0.55-1.30); POTASSIUM 3.9 mmol/L (3.5-5.1); TOTAL BILIRUBIN 0.7 mg/dL (0.0-1.0)
--- NOTE | 2019-02-20 07:48 | NUR ---
PT SLEEPY BUT CAN BE AROUSABLE, ON VENT, TRACH SITE WITH MINIMAL PINK TINGED DRAINAGE. AFIB ON MONITOR. CALL LIGHT IN PLACE, BED LOCKED AT THE LOWEST POSITION WITH ALARM ON. RESTRAINTS IN PLACE, CIRCULATION CHECKS ARE DONE. WILL CONTINUE TO MONITOR.
--- NOTE | 2019-02-20 07:55 | NUR ---
RT NOTES Vent settings to CPAP 5 PS 10 per current order. No adverse reactions noted. Will monitor pt. Addendum: 02/20/19 at 0836 by Ruby Larkin RT Amended: Links added.
[2019-02-20 08:00] VITALS: BP_SYST 108
[2019-02-20] MEDS: VITAMIN B COMPLEX 1 CAP/TAB NG SCH (08:12)
[2019-02-20] MEDS: ASCORBIC ACID 500 MG TABLET NG SCH (08:12)
[2019-02-20] MEDS: DIGOXIN 0.125 MG TABLET GT SCH (08:12)
[2019-02-20] MEDS: CHOLECALCIFEROL (VITAMIN D3) 2,000 UNIT TABLET NG SCH (08:12)
[2019-02-20] MEDS: MULTIVITS,CA,MINERALS/IRON/FA 1 TABLET NG SCH (08:12)
[2019-02-20] MEDS: QUEtiapine FUMARATE 100 MG TABLET GT SCH ×4 (08:12→21:33)
[2019-02-20] MEDS: DIPHENHYDRAMINE HCL 50 MG CAPSULE PO SCH ×3 (08:13→21:32)
[2019-02-20] MEDS: CARVEDILOL 6.25 MG TABLET (COREG) GT SCH ×2 (08:13→21:33)
[2019-02-20] MEDS: HALOPERIDOL 5 MG TABLET (HALDOL) PO SCH ×3 (08:13→21:32)
[2019-02-20] MEDS: LOSARTAN POTASSIUM 50 MG TABLET (COZAAR) NG SCH ×2 (08:14→21:33)
[2019-02-20] MEDS: HYDROCORTISONE SOD SUCC 100 MG/2 ML VIAL IVP SCH (08:14)
[2019-02-20] MEDS: PANTOPRAZOLE SODIUM 40 MG/VIAL (PROTONIX) IVP SCH ×2 (08:14→21:34)
[2019-02-20] MEDS: FUROSEMIDE 20 MG/2 ML VIAL IVP SCH (09:00)
[2019-02-20] MEDS: NAPH,MB-DB/K PH,MBDB 250 MG TAB GT SCH ×2 (10:01→21:32)
--- NOTE | 2019-02-20 10:10 | NUR ---
RT NOTES Per Dr Garcia's order, took pt off the vent and placed on 35% t-piece. Pt. appears to understand education provided. Tracheal and oral sxn done before cuff deflation. No adverse reactions noted. Will monitor pt.
--- NOTE | 2019-02-20 11:00 | NUR ---
PATIENT IS RESTING, NO SIGNS OF DISTRESS NOTED. PULSE O2 IN THE MID 90S%
[2019-02-20 12:08] VITALS: BP_SYST 123
[2019-02-20] MEDS: ACETAMINOPHEN 650 MG/20.3 ML UDC NG PRN (12:50)
--- NOTE | 2019-02-20 13:12 | NUR ---
Dr. Pelaez is at bedside assessing patient.
[2019-02-20] MEDS ORDERED: DIPHENHYDRAMINE INJ 50 MG/ML VIAL IVP ONE (13:15)
[2019-02-20] MEDS ORDERED: HALOPERIDOL 5 MG TABLET (HALDOL) GT ONE (13:15)
[2019-02-20] MEDS: DIPHENHYDRAMINE INJ 50 MG/ML VIAL IVP PRN (13:24)
--- NOTE | 2019-02-20 15:15 | NUR ---
patient is resting at this time. A-fib on monitor, on Tbar 35%, satting 98%.
[2019-02-20 16:13] VITALS: BP_SYST 132
--- NOTE | 2019-02-20 17:25 | NUR ---
patient is turned and repositioned for comfort.
--- NOTE | 2019-02-20 19:20 | NUR ---
OPENING NOTE PT RESTING IN BED, ALERT AND CONFUSED. VSS. TBAR TO TRACH IS AT FIO2 35%, PT SATTING AT 96%. PICC LINE TO RUE C/D/I. RAMOS CATHETER IS INTACT AND DRAINING WELL TO GRAVITY. RECTAL TUBE IS IN PLACE. PT ABLE TO FOLLOW COMMANDS AND GIVE THUMBS UP. NO S/S OF ACUTE DISTRESS. BILATERAL SOFT WRIST RESTRAINTS ARE IN PLACE. SAFETY PRECAUTIONS ARE IN PLACE: BED IS LOCKED IN LOWEST POSITION, SIDE RAILS UP X3, CALL LIGHT WITH PT. WILL MONITOR.
--- NOTE | 2019-02-20 21:34 | NUR ---
MED PASS SCHEDULED MEDICATIONS GIVEN ORDERED. DUE MEDS CRUSHED AND GIVEN VIA GTUBE. 0 RESIDUAL NOTED. GTUBE IS INTACT AND FLUSHING WELL. ASPIRATION PRECAUTIONS ARE IN PLACE. TUBE FEEDING IS RUNNING AT ORDERED RATE. SAFETY MAINTAINED. WILL MONITOR.
--- NOTE | 2019-02-20 23:45 | NUR ---
RN NOTE: ORAL SUCTION PROVIDED FOR PT. ORAL CARE RENDERED. PT TOLERATED WELL. NO S/S OF DISTRESS. PT CALM AT THIS TIME. SAFETY, ASPIRATION, CONTACT, AND PRESSURE PRECAUTIONS ARE IN PLACE. WILL MONITOR.
[2019-02-21 00:26] VITALS: BP_SYST 103
[2019-02-21] MEDS: VANCOMYCIN HCL 1,500 MG in NS 250 ML IV SCH ×2 (01:06→14:32)
--- NOTE | 2019-02-21 01:25 | NUR ---
RESTING PT RESTING IN BED WITH EYES CLOSED. VISIBLE SYMMETRICAL RISE AND FALL OF CHEST TO VENT SETTINGS. NO S/S OF DISTRESS. BILATERAL SOFT WRIST RESTRAINTS ARE IN PLACE. SAFETY, ASPIRATION, CONTACT PRECAUTIONS MAINTAINED. WILL MONITOR.
--- NOTE | 2019-02-21 03:55 | NUR ---
RECTAL TUBE REINSERTED RECTAL TUBE NOTED TO BE DISLODGED. INCONTINENCE CARE RENDERED, CLEAN LINENS AND GOWN PROVIDED. RECTAL TUBE REINSERTED. PT TOLERATED WELL. 45 CC OF NS USED TO INFLATE TUBE. WILL CONT TO MONITOR.
--- NOTE | 2019-02-21 05:00 | NUR ---
HYGIENE PT'S FACIAL HAIR SHAVED BY CARRI DOMINGUEZ. PT REPOSITIONED FOR COMFORT. PT SUCTIONED BY PRIMARY RN. ORAL CARE PROVIDED. NO S/S OF DISTRESS. PT TOLERATED WELL. SAFETY, CONTACT, AND ASPIRATION PRECAUTIONS ARE IN PLACE. WILL CONT TO MONITOR.
--- NOTE | 2019-02-21 07:00 | NUR ---
CLOSING NOTE PT RESTING IN BED, NO S/S OF DISTRESS, BREATHING IS UNLABORED TO VENT SETTINGS, RECTAL TUBE IN PLACE, RAMOS CATHETER IN PLACE. TUBE FEEDING RUNNING ORDERED. ALL NEEDS MET DURING SHIFT. SAFETY, CONTACT AND ASPIRATION PRECAUTIONS MAINTAINED. WILL ENDORSE TO DAY SHIFT RN.
--- NOTE | 2019-02-21 07:30 | NUR ---
rn opening note Patient appears to be resting with no signs of any distress, breathing is equal and non labored. Patient has all safety precautions in place.no other needs at this time. will continue to monitor.
[2019-02-21 08:20] VITALS: BP_SYST 144
--- NOTE | 2019-02-21 08:20 | NUR ---
Medication Patients scheduled medication given as order. Patient is awake and alert sitting up in bed. Patient requesting to be suctioned, suctioned as requested. Patient shows no signs of acute distress, tolerating tube feeding. Patient durbin catheter draining to gravity. Patient has call light with him educated to use for assistance. Patient has no other needs at this time. will continue to monitor.
[2019-02-21] MEDS: PANTOPRAZOLE SODIUM 40 MG/VIAL (PROTONIX) IVP SCH ×2 (08:38→20:48)
[2019-02-21] MEDS: DIPHENHYDRAMINE HCL 50 MG CAPSULE PO SCH ×4 (08:38→20:49)
[2019-02-21] MEDS: VITAMIN B COMPLEX 1 CAP/TAB NG SCH (08:39)
[2019-02-21] MEDS: POTASSIUM CHLORIDE 20 MEQ/PKT PACKET NG SCH ×2 (08:39→20:49)
[2019-02-21] MEDS: DIGOXIN 0.125 MG TABLET GT SCH (08:41)
[2019-02-21] MEDS: LOSARTAN POTASSIUM 50 MG TABLET (COZAAR) NG SCH ×2 (08:42→20:51)
[2019-02-21] MEDS: FUROSEMIDE 20 MG/2 ML VIAL IVP SCH (08:43)
[2019-02-21] MEDS: NAPH,MB-DB/K PH,MBDB 250 MG TAB GT SCH ×2 (08:43→20:50)
[2019-02-21] MEDS: CHOLECALCIFEROL (VITAMIN D3) 2,000 UNIT TABLET NG SCH (08:43)
[2019-02-21] MEDS: MULTIVITS,CA,MINERALS/IRON/FA 1 TABLET NG SCH (08:43)
[2019-02-21] MEDS: CARVEDILOL 6.25 MG TABLET (COREG) GT SCH ×2 (08:43→20:51)
[2019-02-21] MEDS: HALOPERIDOL 5 MG TABLET (HALDOL) PO SCH ×3 (08:44→20:48)
[2019-02-21] MEDS: QUEtiapine FUMARATE 100 MG TABLET GT SCH ×4 (08:44→20:54)
[2019-02-21] MEDS: ASCORBIC ACID 500 MG TABLET NG SCH (08:44)
--- NOTE | 2019-02-21 10:20 | NUR ---
rn rounding Patients rectal tube is leaking, removed rectal tube everything is intact, Paging MD to make aware that rectal rube was removed due to leaking. Waiting for call back. Patient Hobson catheter bag changed due to leaking. Patient provided with paper and per on a clip board to write for communication. Patient has call light with him educated to use for assistance. Patient has all safety precautions in place. Patient suction as requested. patient has no other needs at this time. will continue to monitor.
--- NOTE | 2019-02-21 10:44 | NUR ---
0820 PT PLACED ON T-BAR .35 FIO2. SUCTIONED TK YELLOW LARGE SECRETIONS. HR 83 SAT. 98% Addendum: 02/21/19 at 1048 by Heydi Linares RT Amended: Links added.
[2019-02-21 12:45] VITALS: BP_SYST 130
--- NOTE | 2019-02-21 14:46 | NUR ---
Medication Patients scheduled medication given as ordered. Patient is awake and alert, sitting in bed, suctioned patient as requested. Patient has all safety precautions in place. Patients durbin catheter drainding to gravity. no other needs at this time. will continue to monitor. Call light is with patient. educated to use for assistance.
[2019-02-21 16:33] VITALS: BP_SYST 126
--- NOTE | 2019-02-21 16:45 | NUR ---
cuca reilly Patient is awake and alert, sitting up in bed no signs of distress,breathing is equal and non labored. Patient suctioned as requested. Patient has call light with him educated to use for assistance. no other needs at this time. all safety precautions in place.
[2019-02-21 17:19] VITALS: BP_SYST 126
--- NOTE | 2019-02-21 18:51 | NUR ---
rn closing note patient appears to be resting with no signs of any distress, breathing is equal and non labored. Patient has all safety precautions in place. Hobson catheter draining to gravity. Patient has no other needs at this time.
--- NOTE | 2019-02-21 19:50 | NUR ---
Initial note: Received report from akira PINEDA. Patient is resting in bed, no acute distress noted. Alert and oriented to name, non-verbal. Tolerating T-bar at FiO2 35%. MARISELA PICC line is saline locked. Tubefeeding in place per MD order, Vital AF 1.2 at 80 ML/HR. No gastric residual. Hobson draining clear yellow urine to gravity. Contact iso precautions in place for MRSA of sputum. Safety, fall precautions in place. Will continue with plan of care.
[2019-02-21 20:00] VITALS: BP_SYST 127
[2019-02-22 00:29] VITALS: BP_SYST 97
--- NOTE | 2019-02-22 00:49 | NUR ---
Rounds: Patient is resting in bed, no acute distress. Placed on trach to vent by RT, tolerating settings of AC 12, TV 450, FiO2 35%, PEEP 5.0. MARISELA PICC line saline locked. Tubefeeding in place per MD order. Hobson draining to gravity. Safety, fall precautions in place. Will continue to monitor.
[2019-02-22] MEDS: VANCOMYCIN HCL 1,500 MG in NS 250 ML IV SCH ×2 (02:03→14:44)
--- NOTE | 2019-02-22 03:26 | NUR ---
Rounds: Patient is resting in bed, no acute distress. Tolerating trach to vent, settings of AC 12, TV 450, FiO2 35%, PEEP 5.0. IV antibiotics currently infusing to MARISELA PICC line. Tubefeeding in place per MD order. Safety, fall precautions in place. Will continue to monitor.
--- NOTE | 2019-02-22 06:43 | NUR ---
Closing note: Patient is resting in bed, shows no acute distress. Patient is trach to vent on settings of AC 12, TV 450, FiO2 35%, PEEP of 5.0, tolerating well. IV site to MARISELA PICC is saline locked. Tubefeeding in place as ordered, no gastric residual. Hobson catheter draining to gravity. All needs met. Hourly rounding performed throughout shift. Safety and fall precautions in place. Will endorse care to dayshift RN.
[2019-02-22 08:00] VITALS: BP_SYST 127
--- NOTE | 2019-02-22 08:00 | NUR ---
RT Note: 0740 Pt arousable. Taken off vent and placed on 8LPM T-Bar, FiO2 35%. RR 18, HR 78, and SpO2 99%. Will continue to monitor and suction via trach as needed. Addendum: 02/22/19 at 0819 by Janette Jackson RT Amended: Links added.
[2019-02-22] MEDS: PANTOPRAZOLE SODIUM 40 MG/VIAL (PROTONIX) IVP SCH ×2 (08:42→22:27)
[2019-02-22] MEDS: ASCORBIC ACID 500 MG TABLET NG SCH (08:42)
[2019-02-22] MEDS: QUEtiapine FUMARATE 100 MG TABLET GT SCH ×4 (08:43→22:30)
[2019-02-22] MEDS: FUROSEMIDE 20 MG/2 ML VIAL IVP SCH (08:43)
[2019-02-22] MEDS: VITAMIN B COMPLEX 1 CAP/TAB NG SCH (08:44)
[2019-02-22] MEDS: DIGOXIN 0.125 MG TABLET GT SCH (08:44)
[2019-02-22] MEDS: MULTIVITS,CA,MINERALS/IRON/FA 1 TABLET NG SCH (08:44)
[2019-02-22] MEDS: NAPH,MB-DB/K PH,MBDB 250 MG TAB GT SCH ×2 (08:44→22:28)
[2019-02-22] MEDS: CHOLECALCIFEROL (VITAMIN D3) 2,000 UNIT TABLET NG SCH (08:44)
[2019-02-22] MEDS: CARVEDILOL 6.25 MG TABLET (COREG) GT SCH ×2 (08:45→22:30)
[2019-02-22] MEDS: LOSARTAN POTASSIUM 50 MG TABLET (COZAAR) NG SCH ×2 (08:45→22:29)
[2019-02-22] MEDS: DIPHENHYDRAMINE HCL 50 MG CAPSULE PO SCH ×4 (08:45→22:29)
[2019-02-22] MEDS: POTASSIUM CHLORIDE 20 MEQ/PKT PACKET NG SCH ×2 (08:46→22:28)
[2019-02-22] MEDS: HALOPERIDOL 5 MG TABLET (HALDOL) PO SCH ×3 (09:19→22:30)
[2019-02-22 12:25] VITALS: BP_SYST 158
--- NOTE | 2019-02-22 15:34 | NUR ---
Nutrition F/U RD reviewed pt's current EMR including diet Hx, physician notes, nursing notes, pertinent labs/meds/procedures, care trends, and care activity. Current Nutrition Support: Vital AF 1.2 at 80 ml/hr (goal rate), Free Water Flush: 100 ml Q6h via GT x8 days Subjective information: Pt seen sleeping, w/ vent to T-bar, w/ TF infusing (Vital AF 1.2) at 80 ml/hr; so far, 54 ml infused, providing 65 kcal. Per EMR, TF Intakes: 960 ml 02/22/19; Residuals: 0 ml 02/21/19. BM x2 02/21/19. Per RN, pt has been tolerating TF well. Per physician notes, plans for transfer to subacute and speech eval. ESTIMATED NUTRITIONAL REQUIREMENTS NEW CALORIES/DAY: 0866-9266 kcal/day (MSJ x 1-1.2 CBW d/t obesity, maintenance) PROTEIN/DAY: 127-196 gm/day (1.3-2 gm/kg Adj IBW for obesity, COPD) FLUID/DAY: Per physician d/t Hx of CHF PES 1. Morbid Obesity r/t inability to access healthier food choices AEB possible consumption of high calorie food and beverage from fast food restaurants and convenient stores, homelessness, and BMI 40 kg/m2. *no longer applicable 2. Inadequate nutrient intake r/t medication intake AEB PO intake not meeting 75% of estimated needs and nursing staff report. *ongoing 3. Unintentional wt loss related to possible lean muscle mass depletion as evidenced by possible 47#/15% wt change within 1 month. *ongoing 4. Inadequate EN support related to critical illness as evidenced by no currently infusing nutrition support. *resolved 5. Inadequate EN support r/t increased caloric needs AEB current EN regimen provides <75% of estimated calorie needs. *improved I: 1. Recommend Vital AF 1.2 at 80 ml/hr (goal rate), Ok BID, Free Water Flush: 100 ml Q6h via GT Provides: 2484 kcal/day, 149 gm protein/day, and 1954 ml free water/day Meets: 94% of upper end of estimated caloric needs and 117% of lower end of estimated protein needs M: Monitor tolerance to EN support w/ goal of pt meeting at least 85% of estimated nutritional needs, labs trending WNL, normal GI function, skin integrity/wt maintenance. E: High Risk; F/U within 2-3 days Addendum: 02/22/19 at [address] Pt would benefit from modular: Ok BID to preserve lean muscle mass.
--- NOTE | 2019-02-22 15:39 | NUR ---
Dietitian Recommendations * Recommend Vital AF 1.2 at 80 ml/hr (goal rate), Ok BID, Free Water Flush: 100 ml Q6h via GT Provides: 2484 kcal/day, 149 gm protein/day, and 1954 ml free water/day Meets: 94% of upper end of estimated caloric needs and 117% of lower end of estimated protein needs LP, RD Please refer to Nutrition F/U for details.
[2019-02-22 16:44] VITALS: BP_SYST 126
--- NOTE | 2019-02-22 19:35 | NUR ---
ROUNDS PATIENT RESTING COMFORTABLY IN BED, NOT IN DISTRESS, ON T-BAR AT 35%, NO SIGNS OF ANY PAIN AND DISCOMFORT AT THIS TIME. ASSESSMENT DONE AND DOCUMENTED. SEE FLOWSHEET. NEEDS ATTENDED TO. SAFETY AND FALL PRECAUTION MEASURES IN PLACED. ON BILATERAL SOFT WRIST RESTRAINTS. BED ALARM ON. WILL CONTINUE TO MONITOR.
[2019-02-22 20:00] VITALS: BP_SYST 105
--- NOTE | 2019-02-22 21:14 | NUR ---
MEDICATION DUE MEDICATIONS GIVEN PER G TUBE ORDERED, TOLERATED WELL. WILL CONTINUE TO MONITOR.
--- NOTE | 2019-02-23 00:12 | NUR ---
PATIENT RESTING: Patient resting quietly. No acute distress noted. Vital signs within normal range.
--- NOTE | 2019-02-23 00:13 | NUR ---
PATIENT RESTING: Patient resting quietly. No acute distress noted. Vital signs within normal range.
[2019-02-23 00:34] VITALS: BP_SYST 112
[2019-02-23] MEDS: VANCOMYCIN HCL 1,500 MG in NS 250 ML IV SCH ×2 (02:30→13:18)
--- NOTE | 2019-02-23 04:12 | NUR ---
ROUNDS PATIENT ASLEEP, RESPIRATIONS EVEN AND UNLABORED, NO SIGNS OF ANY PAIN NOTED. WILL CONTINUE TO MONITOR.
--- NOTE | 2019-02-23 04:22 | NUR ---
SWALLOW EVAL: I CALLED ANA SPEECH PROFESSIONAL I LEFT A MESSAGE IN HER ANSWERING MACHINE REGARDING A SWALLOW EVALUATION NUMBER THAT I CALLED [phone] Addendum: 02/23/19 at 0559 by Antoinette Jacobo [place]/ I WOULD LIKE TO CLARIFIED THAT THIS IS A SPEECH LANG EVAL SO WHEN I CALLED ANA I SAID THE REASON FOR THIS CALL IS SPEEC LANG EVAL II IS NOT A SWALLOW EVALUATION
--- NOTE | 2019-02-23 05:55 | NUR ---
SPEECH ACE MAST I CALLED ANA LEFT A MESSAGE PHONE THAT I CALLED [phone]
[2019-02-23 06:08] LABS: BASOPHILS # (AUTO) 0.1 K/uL (0.0-0.2); EOSINOPHILS # (AUTO) 0.4 K/uL (0.0-0.4); EOSINOPHILS % (AUTO) 4.2 % (0.0-4.0); HEMATOCRIT 28.4 % (36-54); HEMOGLOBIN 9.3 g/dL (14.0-18.0); LYMPHOCYTES # (AUTO) 1.1 K/uL (1.0-5.5); LYMPHOCYTES % (AUTO) 11.4 % (20.5-51.5); MEAN CORPUSCULAR HEMOGLOBIN 28 pg (27-31); MEAN CORPUSCULAR HGB CONC 33 % (32-36); MEAN CORPUSCULAR VOLUME 87 fL (79.0-98.0); MONOCYTES % (AUTO) 9.5 % (1.7-9.3); NEUTROPHILS # (AUTO) 7.4 K/uL (1.8-7.7); NEUTROPHILS % (AUTO) 73.9 % (40.0-70.0); PLATELET COUNT (AUTO) 329 K/uL (130-430); RED BLOOD CELL COUNT(AUTO) 3.29 MIL/uL (4.2-6.2); RED CELL DISTRIBUTION WIDTH 22.9 % (9.0-15.0); WHITE BLOOD COUNT (AUTO) 10.1 K/uL (4.8-10.8)
[2019-02-23 06:20] LABS: CALCIUM 9.2 mg/dL (8.4-11.0); CREATININE 0.91 mg/dL (0.55-1.30); POTASSIUM 4.4 mmol/L (3.5-5.1)
--- NOTE | 2019-02-23 06:50 | NUR ---
CLOSING NOTES PATIENT RESTING COMFORTABLY AT THIS TIME, ALL NEEDS ATTENDED TO, VITALS STABLE. SAFETY AND FALL MEASURES MAINTAINED. WILL ENDORSE TO INCOMING SHIFT NURSE.
--- NOTE | 2019-02-23 07:38 | NUR ---
OPENING NOTE Patient resting in the bed. No acute distress. Trach intact to vent. Skin warm and dry to touch. PICC line intact to MARISELA, no redness, no swelling, paten, covered with clean and dry dressing. HOB elevated. GT intact, continue on GT feeding. Bilateral soft wrist restraint applied, able to move fingers and hands without problems. F/C intact, drain gravity with yellow urine. On contact isolation. Safety measure maintained. Call light within reached. Bed locked in low position, side rails up, bed alarm on. Will continue to monitor.
[2019-02-23 08:00] VITALS: BP_SYST 108
--- NOTE | 2019-02-23 08:20 | NUR ---
RT NOTES- PT ON T-BAR 35%FIO2 PT AWAKE AND ALERT AT THIS TIME. REMOVED FROM VENTILATOR AND PLACED ON T-BAR 35%FIO2 RUNNING AT 8L/M WITH TRACH CUFF DEFLATED. PT ABLE TO COMMUNICATE IN BROKEN WORDS. NO RESPIRATORY DISTRESS NOTED. RN ADILENE IS AWARE. WILL CONTINUE MONITORING.
[2019-02-23] MEDS: POTASSIUM CHLORIDE 20 MEQ/PKT PACKET NG SCH ×2 (09:44→21:41)
[2019-02-23] MEDS: PANTOPRAZOLE SODIUM 40 MG/VIAL (PROTONIX) IVP SCH ×2 (09:44→21:45)
[2019-02-23] MEDS: ASCORBIC ACID 500 MG TABLET NG SCH (09:45)
[2019-02-23] MEDS: VITAMIN B COMPLEX 1 CAP/TAB NG SCH (09:45)
[2019-02-23] MEDS: MULTIVITS,CA,MINERALS/IRON/FA 1 TABLET NG SCH (09:45)
[2019-02-23] MEDS: FUROSEMIDE 20 MG/2 ML VIAL IVP SCH (09:45)
[2019-02-23] MEDS: CHOLECALCIFEROL (VITAMIN D3) 2,000 UNIT TABLET NG SCH (09:46)
[2019-02-23] MEDS: CARVEDILOL 6.25 MG TABLET (COREG) GT SCH ×2 (09:46→21:44)
[2019-02-23] MEDS: DIGOXIN 0.125 MG TABLET GT SCH (09:46)
[2019-02-23] MEDS: QUEtiapine FUMARATE 100 MG TABLET GT SCH ×4 (09:47→21:43)
[2019-02-23] MEDS: LOSARTAN POTASSIUM 50 MG TABLET (COZAAR) NG SCH ×2 (09:47→21:43)
[2019-02-23] MEDS: DIPHENHYDRAMINE HCL 50 MG CAPSULE PO SCH ×4 (09:47→21:42)
--- NOTE | 2019-02-23 09:48 | NUR ---
SCHEDULE MED GIVEN Patient resting in the bed. No acute distress. Continue ON O2 via T-bar. HOB elevated. Am schedule med given via GT. GT intact, patent, no residual. F/C intact, drain gravity. Continue on contact isolation. Bilateral soft wrist restraint applied, able to move fingers and hands without difficulty. Safety measure maintained. Call light within reached. Bed locked in low position, side rails up, bed alarm on. Continue to monitor.
[2019-02-23] MEDS: HALOPERIDOL 5 MG TABLET (HALDOL) PO SCH ×3 (10:21→21:44)
[2019-02-23] MEDS: NAPH,MB-DB/K PH,MBDB 250 MG TAB GT SCH ×2 (10:22→21:41)
--- NOTE | 2019-02-23 10:23 | NUR ---
SEEN AND EXAMINED BY ADRIANA QUIROGA.
--- NOTE | 2019-02-23 12:21 | NUR ---
SEEN AND EXAMINED BY CHAYITO TEE.
[2019-02-23 12:38] VITALS: BP_SYST 108
--- NOTE | 2019-02-23 13:50 | NUR ---
RT NOTES - PMV TRIAL ANA, THE SPEECH THERAPIST, REQUESTS TO PLACE PT ON PASSY LILIA VALVE AT 1315. TRACH SX PERFORMED PRIOR PUTTING PT ON PMV. PT ON PMV AT 1320, IMMEDIATELY VOCALIZATION. MONITORED PT FOR 25MIN. HR STABLE. SPO2 VARIES FROM 91-97%. PT REQUESTED TO STAY ON PMV FOR LONGER TIME. AFTER DISCUSSION WITH ANA. WE AGREED TO LEAVE PT ON PMV WITH 35%FIO2 TRACH MASK ON. RN ADILENE, JUNO ARMEN AND FORESTRY PROFESSOR MAKE AWARE/ KEEP SPO2 ABOVE 90%. WILL CONTINUE MONITORING.
--- NOTE | 2019-02-23 14:02 | NUR ---
S.T. SPEECH EVAL SPEECH EVAL FOR PMV COMPLETED. RT MICHAEL PRESENT. PT IS A GREAT CANDIDATE FOR PMV. PASSY LILIA VALVE (PMV) FITTED. IMMEDIATE EXCELLENT VOCALIZATION. O2 SAT 91-97 ON ROOM AIR AND 96 OR ABOVE AIDED (O2 MASK ON PMV). PT TOLERATES PMV VERY WELL AND REQUESTS TO STAY ON PMV. REC: CONTINUE PMV TOLERATED. NURSE ADILENE, CHARGE NURSE ARMEN, AND PRODUCT MANAGEMENT INTERN NOTIFIED TO MONITOR PT'S O2 STAT - NOT TO DROP TO LOW 90S. RT WILL ALSO MONITOR. G9171 CJ G9172 CJ G9173 CJ NOMS LEVEL 5
--- NOTE | 2019-02-23 14:22 | NUR ---
O2 SAT=93% Patient resting in the bed. No acute distress. Continue on PMV in RA, trach intact. GT intact, continue on GT feeding. HOB elevated. F/C intact, drain gravity. Continue on contact isolation precaution. Bilateral soft wrist restraint applied, able to move fingers and hands without difficulty, pulse present. Safety measure maintained. Call light within reached. Bed locked in low position, side rails up, bed alarm on. Continue to monitor.
[2019-02-23 16:45] VITALS: BP_SYST 108
--- NOTE | 2019-02-23 18:50 | NUR ---
CLOSING NOTE Patient resting in the bed. No acute distress. Trach intact to PMV in RA. O2 sat remains 91-97%. Skin warm and dry to touch. PICC line intact to MARISELA, no redness, no swelling, paten, covered with clean and dry dressing. HOB elevated. GT intact, continue on GT feeding. Bilateral soft wrist restraint applied, able to move fingers and hands without problems. F/C intact, drain gravity with yellow urine. On contact isolation. All needs met. Safety measure maintained. Call light within reached. Bed locked in low position, side rails up, bed alarm on. Will endorse to night nurse.
--- NOTE | 2019-02-23 19:35 | NUR ---
ROUNDS PATIENT RESTING COMFORTABLY IN BED AT THIS TIME, ON VENT TO TRACH, VITALS STABLE, NO SIGNS OF ANY PAIN AND DISCOMFORT NOTED. ASSESSMENT DONE AND DOCUMENTED. SEE FLOWSHEET. NEEDS ATTENDED TO. SAFETY AND FALL MEASURES IN PLACED. BED IN LOW AND LOCKED POSITION. WILL CONTINUE TO MONITOR.
--- NOTE | 2019-02-24 00:12 | NUR ---
PATIENT RESTING: Patient resting quietly. No acute distress noted. Vital signs within normal range.
[2019-02-24 01:44] VITALS: BP_SYST 100
[2019-02-24] MEDS: VANCOMYCIN HCL 1,500 MG in NS 250 ML IV SCH (02:44)
--- NOTE | 2019-02-24 07:30 | NUR ---
OPENING NOTE Patient resting in the bed. No acute distress. Trach intact to vent. Skin warm and dry to touch. PICC line intact to MARISELA, no redness, no swelling, patent, covered with clean and dry dressing. HOB elevated. GT intact, continue on GT feeding. Bilateral soft wrist restraint applied, able to move fingers and hands without problems. F/C intact, drain gravity with yellow urine. On contact isolation. Safety measure maintained. Call light within reached. Bed locked in low position, side rails up, bed alarm on. Will continue to monitor.
--- NOTE | 2019-02-24 08:20 | NUR ---
RT NOTES - T BAR TRACH SX PERFORMED. TRACH CUFF DEFLATED. PT OFF VENT AND PLACED ON 35%FIO2 T-BAR AT THIS TIME. CN ARMEN AND RN ADILENE MADE AWARE. NO RESPIRATORY DISTRESS NOTED.
--- NOTE | 2019-02-24 09:50 | NUR ---
SEEN AND EXAMINED BY ARI PACHECO WITH ORDER RECEIVED.
--- NOTE | 2019-02-24 10:00 | NUR ---
RT NOTES - PMV PER DR. GERARD PLACED PT ON PM VALVE AT THIS TIME. TRACH SX PERFORMED. PT TOLERATING WELL. CN ARMEN AND RN ADILENE MADE AWARE. WILL CONTINUE MONITORING.
--- NOTE | 2019-02-24 10:00 | NUR ---
Up to chair ,DC restraints ,post Pulmo and Cardio round: Dr. Medina and Dr. Hodgson make round. Patient is alert, oriented,and cooperating. Dr. Medina DC soft wrist restraints by himself. Patient requests to get up. Dr. Medina states he is OK to get up to chair with assist. PT and 3 nurses are at bedside helping to assist patient up to a reclining chair at bedside. Patient is tolerating well with MD=87, RR=20, Sat O2=93% on T-bar, will continue monitor closely.
[2019-02-24] MEDS: MULTIVITS,CA,MINERALS/IRON/FA 1 TABLET NG SCH (10:10)
[2019-02-24] MEDS: NAPH,MB-DB/K PH,MBDB 250 MG TAB GT SCH ×2 (10:10→23:09)
[2019-02-24] MEDS: CHOLECALCIFEROL (VITAMIN D3) 2,000 UNIT TABLET NG SCH (10:10)
[2019-02-24] MEDS: PANTOPRAZOLE SODIUM 40 MG/VIAL (PROTONIX) IVP SCH ×2 (10:10→20:32)
[2019-02-24] MEDS: DIPHENHYDRAMINE HCL 50 MG CAPSULE PO SCH ×4 (10:10→20:30)
[2019-02-24] MEDS: POTASSIUM CHLORIDE 20 MEQ/PKT PACKET NG SCH ×2 (10:10→20:32)
[2019-02-24] MEDS: VITAMIN B COMPLEX 1 CAP/TAB NG SCH (10:10)
[2019-02-24] MEDS: QUEtiapine FUMARATE 100 MG TABLET GT SCH ×4 (10:11→20:29)
[2019-02-24] MEDS: ASCORBIC ACID 500 MG TABLET NG SCH (10:11)
[2019-02-24] MEDS: DIGOXIN 0.125 MG TABLET GT SCH (10:12)
[2019-02-24] MEDS: FUROSEMIDE 20 MG/2 ML VIAL IVP SCH (10:13)
[2019-02-24] MEDS: CARVEDILOL 6.25 MG TABLET (COREG) GT SCH ×2 (10:13→20:31)
[2019-02-24] MEDS: LOSARTAN POTASSIUM 50 MG TABLET (COZAAR) NG SCH ×2 (10:14→20:30)
[2019-02-24] MEDS: HALOPERIDOL 5 MG TABLET (HALDOL) PO SCH ×3 (10:25→20:31)
--- NOTE | 2019-02-24 10:28 | NUR ---
SEEN AND EXAMINED BY CHAYITO TEE WITH ORDER RECEIVED.
--- NOTE | 2019-02-24 12:14 | NUR ---
PATIENT REMAINS IN RECLINER CHAIR Patient sitting in the recliner chair. No acute distress. Continue on trach mask with PMV. O2 sat=97% at this time. GT intact, GT feeding tolerated well. F/C intact, drain gravity. Safety measure maintained. Call light within reached. Safety measure maintained. Continue to monitor.
[2019-02-24 12:31] VITALS: BP_SYST 88
--- NOTE | 2019-02-24 14:22 | NUR ---
RESTING Patient continue resting in the recliner chair. No acute distress. Trach intact with trach mask with PMV. O2 sat=97%. FIO2=35. Continue on GT feeding. F/C intact, drain gravity. On contact isolation. Safety measure maintained. Call light within reached. Continue to monitor.
--- NOTE | 2019-02-24 16:08 | NUR ---
ST called: Call and leave a message to Dank< a speech therapist> for swallowing evaluation.
--- NOTE | 2019-02-24 16:13 | NUR ---
PATIENT REFUSED BACK TO BED Offered patient back to bed. Patient refused. No acute distress. O2 sat=96%. FIO2=35%. Trach intact to T-mask with PMV on. GT intact, continue on GT feeding. F/C intact, drain gravity. Safety measure maintained. Call light within reached. Continue to monitor.
[2019-02-24 16:15] VITALS: BP_SYST 108
--- NOTE | 2019-02-24 18:47 | NUR ---
CLOSING NOTE Patient resting in the recliner chair with eyes closed. No acute distress. Trach intact to trach mask with PMV. FIO2=35%. O2 sat remained 95-98%. Skin warm and dry to touch. PICC line intact to MARISELA, no redness, no swelling, patent, covered with clean and dry dressing. HOB elevated. GT intact, continue on GT feeding. F/C intact, drain gravity with yellow urine. On contact isolation. All needs met. Safety measure maintained. Call light within reached. Will endorse to night nurse.
--- NOTE | 2019-02-24 19:30 | NUR ---
ROUNDS PATIENT RESTING COMFORTABLY IN THE RECLINER BED, ON T-BAR, VITALS STABLE. NO SIGNS OF ANY PAIN AND DISCOMFORT NOTED. TRANSFERRED BACK TO THE BED. ASSESSMENT DONE AND DOCUMENTED. SEE FLOWSHEET. NEEDS ATTENDED TO. SAFETY AND FALL PRECAUTION MEASURES IN PLACED. BED IN LOW AND LOCKED POSITION. WILL CONTINUE TO MONITOR.
--- NOTE | 2019-02-24 21:10 | NUR ---
MEDICATION DUE MEDICATIONS GIVEN SCHEDULED PER G TUBE, TOLERATED WELL. WILL CONTINUE TO MONITOR.
--- NOTE | 2019-02-25 00:13 | NUR ---
PATIENT RESTING: Patient resting quietly. No acute distress noted. Vital signs within normal range.
[2019-02-25 00:41] VITALS: BP_SYST 90
--- NOTE | 2019-02-25 04:12 | NUR ---
ROUNDS PATIENT ASLEEP. RESPIRATIONS EVEN AND UNLABORED, WILL CONTINUE TO MONITOR.
[2019-02-25 06:20] LABS: BASOPHILS # (AUTO) 0.1 K/uL (0.0-0.2); BASOPHILS % (AUTO) 1.1 % (0.0-2.0); EOSINOPHILS # (AUTO) 0.6 K/uL (0.0-0.4); HEMATOCRIT 27.9 % (36-54); HEMOGLOBIN 9.2 g/dL (14.0-18.0); LYMPHOCYTES # (AUTO) 1.2 K/uL (1.0-5.5); LYMPHOCYTES % (AUTO) 12.4 % (20.5-51.5); MEAN CORPUSCULAR HEMOGLOBIN 28 pg (27-31); MEAN CORPUSCULAR HGB CONC 33 % (32-36); MEAN CORPUSCULAR VOLUME 86 fL (79.0-98.0); MONOCYTES % (AUTO) 10.3 % (1.7-9.3); NEUTROPHILS # (AUTO) 6.6 K/uL (1.8-7.7); NEUTROPHILS % (AUTO) 70.2 % (40.0-70.0); PLATELET COUNT (AUTO) 311 K/uL (130-430); RED BLOOD CELL COUNT(AUTO) 3.25 MIL/uL (4.2-6.2); RED CELL DISTRIBUTION WIDTH 23.1 % (9.0-15.0); WHITE BLOOD COUNT (AUTO) 9.4 K/uL (4.8-10.8)
[2019-02-25 06:29] LABS: CREATININE 2.06 mg/dL (0.55-1.30)
[2019-02-25 07:06] LABS: CALCIUM 9.7 mg/dL (8.4-11.0)
--- NOTE | 2019-02-25 07:50 | NUR ---
OPENING NOTE RECEIVED PATIENT RESTING IN BED; EASILY AROUSABLE. NO S/SX PAIN NOTED. ON VENT WIT SETTINGS ORDERED. NO ACUTE DISTRESS. NO SOB. RESPIRATION EVEN AND UNLABORED. SKIN WARM AND DRY. PICC LINE NOTED TO MARISELA; INTACT AND PATENT. GTUBE INTACT AND PATENT WITH GOOD PLACEMENT AND RESIDUAL OF 20CC. RAMOS CATH INTACT AND PATENT DRAINING YELLOW URINE. BED IN LOW AND LOCKED POSITION. SIDERAIL UPX3. CALL LIGHT IN REACH. CONT ON CONTACT PRECAUTIONS FOR MRSA SPUTUM. CONT TO MONITOR
[2019-02-25 08:05] VITALS: BP_SYST 121
[2019-02-25] MEDS: QUEtiapine FUMARATE 100 MG TABLET GT SCH ×4 (09:07→21:55)
[2019-02-25] MEDS: POTASSIUM CHLORIDE 20 MEQ/PKT PACKET NG SCH ×2 (09:07→21:53)
[2019-02-25] MEDS: PANTOPRAZOLE SODIUM 40 MG/VIAL (PROTONIX) IVP SCH ×2 (09:08→21:53)
[2019-02-25] MEDS: CHOLECALCIFEROL (VITAMIN D3) 2,000 UNIT TABLET NG SCH (09:09)
[2019-02-25] MEDS: VITAMIN B COMPLEX 1 CAP/TAB NG SCH (09:09)
[2019-02-25] MEDS: FUROSEMIDE 20 MG/2 ML VIAL IVP SCH (09:09)
[2019-02-25] MEDS: NAPH,MB-DB/K PH,MBDB 250 MG TAB GT SCH (09:10)
[2019-02-25] MEDS: MULTIVITS,CA,MINERALS/IRON/FA 1 TABLET NG SCH (09:10)
[2019-02-25] MEDS: LOSARTAN POTASSIUM 50 MG TABLET (COZAAR) NG SCH (09:10)
[2019-02-25] MEDS: HALOPERIDOL 5 MG TABLET (HALDOL) PO SCH ×3 (09:10→21:54)
[2019-02-25] MEDS: DIPHENHYDRAMINE HCL 50 MG CAPSULE PO SCH ×4 (09:10→21:55)
[2019-02-25] MEDS: ASCORBIC ACID 500 MG TABLET NG SCH (09:10)
[2019-02-25] MEDS: DIGOXIN 0.125 MG TABLET GT SCH (09:11)
[2019-02-25] MEDS: CARVEDILOL 6.25 MG TABLET (COREG) GT SCH ×2 (09:14→21:55)
--- NOTE | 2019-02-25 09:15 | NUR ---
NOTE ALL DUE MEDS ADMINISTERED, ARINA WELL. TEACHING DONE ON MEDICATION AND ASE. PATIENT TRANSFERRED FROM BED TO CHAIR BY PHYSICAL THERAPIST, PATIENT WITH UNSTEADY GAIT. SEEN AND EXAMINED BY AT BEDSIDE
[2019-02-25] MEDS ORDERED: NS 500 ML IV ONE (10:00)
--- NOTE | 2019-02-25 10:00 | NUR ---
NOTE D/C RAMOS CATHETER. PATIENT ARINA WELL. NO BLEEDING NOTED. WILL MONITOR FOR VOIDING. ALL NEEDS MET. CONT TO MONITOR. CALL LIGHT IN REACH
--- NOTE | 2019-02-25 10:20 | NUR ---
SEEN AND EXAMINED BY AT BEDSIDE
--- NOTE | 2019-02-25 10:39 | NUR ---
0850 SUCTIONED AND DEFLATED CUFF. OFF THE VENT AND PLACED TRACH MASK 8 LPM FIO2 35% WITH PASSY LILIA VALVE. PT TOLERATING WELL. SPO2 96%, HR 72. WILL CONTINUE TO MONITOR PT.
--- NOTE | 2019-02-25 12:00 | NUR ---
GTF HUNG NEW GTUBE FEEDING VITAL 1.2 AF ORDERED, ARINA WELL. GTUBE INTACT AND PATENT. NO RESIDUAL NOTED. NO N/V/D/ NOTED. ALL NEEDS MET. CONT TO MONITOR
[2019-02-25 12:30] VITALS: BP_SYST 103
[2019-02-25] MEDS ORDERED: BARIUM SULFATE 135 ML SUSP.RECON (E-Z-HD) PO ONE (13:14)
--- NOTE | 2019-02-25 13:30 | NUR ---
NOTE XRAY SWALLOW STUDY DONE AT BEDSIDE. PATIENT STABLE. CONT TO MONITOR
--- NOTE | 2019-02-25 13:39 | NUR ---
Nutrition F/U RD reviewed pt's current EMR including diet Hx, physician notes, nursing notes, pertinent labs/meds/procedures, care trends and care activity. Current EN support: Vital AF 1.2 at 80ml/hr (goal rate), Ok BID, FWF 100ml Q6H via GT x 3 days Subjective information: Pt seen sleeping in chair w/ sitter at bedside during RD visit today. Per sitter's report, pt has been agitated and restless this morning. He has been able to communicate wants and needs and sometimes gets aggressive/agitated. EN infusing at bedside per MD orders. Per RN report, residual this morning was 20cc, and continues to tolerate EN well. Per bed huddle discussion, pt is awaiting video swallow, he passed that initial swallow eval on 02/23/19, but MD wants a video swallow. Current EN regimen remains adequate and appropriate. May discontinue EN and start on solid food per ST rec. ESTIMATED NUTRITIONAL REQUIREMENTS NEW CALORIES/DAY: 9859-3891 kcal/day (MSJ x 1-1.2 CBW d/t obesity, maintenance) PROTEIN/DAY: 127-196 gm/day (1.3-2 gm/kg Adj IBW for obesity, COPD) FLUID/DAY: Per physician d/t Hx of CHF PES 1. Morbid Obesity r/t inability to access healthier food choices AEB possible consumption of high calorie food and beverage from fast food restaurants and convenient stores, homelessness, and BMI 40 kg/m2. *no longer applicable 2. Inadequate nutrient intake r/t medication intake AEB PO intake not meeting 75% of estimated needs and nursing staff report. *ongoing 3. Unintentional wt loss related to possible lean muscle mass depletion as evidenced by possible 47#/15% wt change within 1 month. *ongoing 4. Inadequate EN support related to critical illness as evidenced by no currently infusing nutrition support. *resolved 5. Inadequate EN support r/t increased caloric needs AEB current EN regimen provides <75% of estimated calorie needs. *improved I: 1. Recommend continuing Vital AF 1.2 at 80 ml/hr (goal rate), Ok BID, Free Water Flush: 100 ml Q6h via GT Provides: 2484 kcal/day, 149 gm protein/day, and 1954 ml free water/day Meets: 94% of upper end of estimated caloric needs and 117% of lower end of estimated protein needs 2. Awaiting video swallow result. May adjust/lower EN infusion rate once pt can tolerate solid food. M: Monitor tolerance to EN support, provision of diet order w/ goal of pt meeting at least 85% of estimated nutritional needs, labs trending WNL, normal GI function, skin integrity/wt maintenance. E: High Risk; F/U within 2-3 days [facility], RD
--- NOTE | 2019-02-25 13:46 | NUR ---
911 Emergency Dispatcher Recommendation 1. Recommend continuing Vital AF 1.2 at 80 ml/hr (goal rate), Ok BID, Free Water Flush: 100 ml Q6h via GT Provides: 2484 kcal/day, 149 gm protein/day, and 1954 ml free water/day Meets: 94% of upper end of estimated caloric needs and 117% of lower end of estimated protein needs 2. Awaiting video swallow result. May adjust/lower EN infusion rate once pt can tolerate solid food. Please see Nutrition F/U note for details. ARLETTE, PEPPER
--- NOTE | 2019-02-25 14:07 | NUR ---
S.T. SWALLOW EVAL AND VFSS BLUE DYE SWALLOW TEST COMPLETED THIS MORNING. GENERALLY FUNCTIONAL OROPHARYNGEAL SWALLOW FOR THIN/THICK LIQUIDS AND PUREE. NO BLUE DYE SUCTIONED AND NO S/S OF ASPIRATION. DR. WALLACE NOTIFIED AND HE CONCURRED WITH VIDEOFLUOROSCOPIC SWALLOW STUDY (VFSS) G8996 CJ G8997 CJ G8998 CJ NOMS LEVEL 5 VFSS COMPLETED THIS AFTERNOON. PT PRESENTS W/ ML PHARYNGEAL DYSPHAGIA W/ ML VALLECULAR RETENTION - CLEARED WITH THIN LIQUIDS. NO ASPIRATION. REC: 1) MECH SOFT CHOPPED DIET. THIN LIQUIDS OK. 2) FOLLOW SWALLOW GUIDELINES POSTED IN ROOM. NURSES THERESE AND MORA NOTIFIED. G8996 CJ G8997 CJ G8998 CJ NOMS LEVEL 5
--- NOTE | 2019-02-25 14:15 | NUR ---
MED ALL DUE MEDS ADMINISTERED, ARINA WELL. PATIENT RESTING ON RECLINING CHAIR. HOB UP. DENIES ANY PAIN. NO ACUTE DISTRESS. ARINA TBAR. ALL NEEDS MET. CONT TO MONITOR. SITTER AT BEDSIDE
--- NOTE | 2019-02-25 16:30 | NUR ---
NOTE PATIENT ATTEMPTED TO USE URINAL. INCONTINENCE CARE PROVIDED. LINENS CHANGED. CONT TO MONITOR. [facility]
--- NOTE | 2019-02-25 17:11 | NUR ---
SEEN AND EXAMINED BY AT BEDSIDE REPORTED TO PATIENT SEEN BY ANA AND SWALLOW TEST DONE AND ST RECOMMENDS MECH SOFT CHOPPED WITH THIN LIQUID. PER CHANGE DIET TO PUREE DUE TO PATIENTS HX OF ASPIRATION. CONT TO MONITOR Addendum: 02/25/19 at 1731 by Shena Castaneda RN PER CONT CURRENT GTUBE FEEDING AND FLUSH
[2019-02-25 17:26] VITALS: BP_SYST 107
--- NOTE | 2019-02-25 18:33 | NUR ---
CLOSING NOTE PATIENT STABLE. DENIES ANY PAIN. ARINA TBAR ORDERED. NO ACUTE DISTRESS. NO SOB. RESPIRATION EVEN AND UNLABORED. SKIN WARM AND DRY TO TOUCH. PICC LINE TO MARISELA INTACT AND PATENT. GTUBE INTACT AND PATENT WITH GOOD PLACEMENT; ARINA GTUBE FEEDING. PATIENT TOLERATED PUREE DIET FOR DINNER. CONT ON CONTACT PRECAUTIONS. ALL NEEDS MET. CALL LIGHT IN REACH. SITTER AT BEDSIDE.
[2019-02-25 20:53] VITALS: BP_SYST 112
--- NOTE | 2019-02-25 21:15 | NUR ---
PATIENT OUT OF BED IN RE CLINER CHAIR , TRACH IN PLACE PATENT ON COOL AEROSOL HI FLOW VERBALLY INDICATIVE FALL PRECAUTIONS IN PLACE SITTER D/O @ THE BEDSIDE .
--- NOTE | 2019-02-25 22:58 | NUR ---
GASTRIC TUBE PATENT MEDICATIONS ADMINISTER ORDERED PATIENT in chair and tolerating D/O @ the bedside continue to monitor / .
[2019-02-26 00:01] VITALS: BP_SYST 97
--- NOTE | 2019-02-26 02:17 | NUR ---
TRACH PATENT INTACT COOL AEROSOL 28 % this hour NEBULIZER TX PER RT , 02 SAT 94 % D/O @ THE BEDSIDE SAFETY MEASURES implemented / .
--- NOTE | 2019-02-26 04:09 | NUR ---
PATIENT RESTING ON AIR MATRES BED KEPT CLEAN & DRY SAFETY MEASURES IMPLEMENTED D/O @ THE BEDSIDE .
[2019-02-26 06:59] LABS: BASOPHILS # (AUTO) 0.1 K/uL (0.0-0.2); EOSINOPHILS # (AUTO) 0.6 K/uL (0.0-0.4); EOSINOPHILS % (AUTO) 7.3 % (0.0-4.0); HEMATOCRIT 27.8 % (36-54); HEMOGLOBIN 9.1 g/dL (14.0-18.0); LYMPHOCYTES # (AUTO) 1.2 K/uL (1.0-5.5); LYMPHOCYTES % (AUTO) 14.2 % (20.5-51.5); MEAN CORPUSCULAR HEMOGLOBIN 28 pg (27-31); MEAN CORPUSCULAR HGB CONC 33 % (32-36); MEAN CORPUSCULAR VOLUME 86 fL (79.0-98.0); MONOCYTES % (AUTO) 11.9 % (1.7-9.3); NEUTROPHILS # (AUTO) 5.7 K/uL (1.8-7.7); NEUTROPHILS % (AUTO) 65.6 % (40.0-70.0); PLATELET COUNT (AUTO) 289 K/uL (130-430); RED BLOOD CELL COUNT(AUTO) 3.24 MIL/uL (4.2-6.2); RED CELL DISTRIBUTION WIDTH 23.1 % (9.0-15.0); WHITE BLOOD COUNT (AUTO) 8.7 K/uL (4.8-10.8)
[2019-02-26 07:14] LABS: ALBUMIN 2.7 g/dL (3.4-4.8); CREATININE 2.41 mg/dL (0.55-1.30); DIGOXIN 1.1 ng/mL (0.80-2.00); PHOSPHORUS 6.5 mg/dL (2.7-4.5); POTASSIUM 5.1 mmol/L (3.5-5.1); TOTAL BILIRUBIN 0.8 mg/dL (0.0-1.0)
[2019-02-26 07:29] LABS: CALCIUM 10.1 mg/dL (8.4-11.0)
[2019-02-26 08:00] VITALS: BP_SYST 112
[2019-02-26] MEDS: QUEtiapine FUMARATE 100 MG TABLET GT SCH ×4 (08:47→22:28)
[2019-02-26] MEDS: POTASSIUM CHLORIDE 20 MEQ/PKT PACKET NG SCH (08:47)
[2019-02-26] MEDS: MULTIVITS,CA,MINERALS/IRON/FA 1 TABLET NG SCH (08:47)
[2019-02-26] MEDS: PANTOPRAZOLE SODIUM 40 MG/VIAL (PROTONIX) IVP SCH ×2 (08:47→21:00)
[2019-02-26] MEDS: CHOLECALCIFEROL (VITAMIN D3) 2,000 UNIT TABLET NG SCH (08:47)
[2019-02-26] MEDS: VITAMIN B COMPLEX 1 CAP/TAB NG SCH (08:47)
[2019-02-26] MEDS: DIPHENHYDRAMINE HCL 50 MG CAPSULE PO SCH ×4 (08:47→22:30)
[2019-02-26] MEDS: DIGOXIN 0.125 MG TABLET GT SCH (08:48)
[2019-02-26] MEDS: CARVEDILOL 6.25 MG TABLET (COREG) GT SCH ×2 (08:50→22:30)
[2019-02-26] MEDS: HALOPERIDOL 5 MG TABLET (HALDOL) PO SCH (08:54)
[2019-02-26] MEDS ORDERED: LOSARTAN POTASSIUM 50 MG TABLET (COZAAR) NG SCH (09:00)
[2019-02-26 12:42] VITALS: BP_SYST 121
[2019-02-26] MEDS ORDERED: HALOPERIDOL 1 MG TABLET (HALDOL) PO PRN (13:45)
--- NOTE | 2019-02-26 15:24 | NUR ---
1515 TRACH CARE DONE, TRACH TIES CHANGED. PT TOLERATING COOL AEROSOL. Addendum: 02/26/19 at 1525 by Heydi Linares RT Amended: Links added.
[2019-02-26 16:41] VITALS: BP_SYST 122
[2019-02-26 20:00] VITALS: BP_SYST 111
--- NOTE | 2019-02-26 20:00 | NUR ---
RESTING, LYING DOWN ON O1 AT 28% VIA TRACH COLLAR SUCTIONED BY RT WITH COPIOUS AMOUNTS OF THICK YELLOW MUCUS OBTAINED PASSY LILIA VALVE TAKEN OFF BY RT TO REDUCE MUCUS PLUGS GT FEEDING WITH VITAL AF INFUSING AT 80CC/HR RESIDUAL CHEK 10CC PICC LINE FOUND IN BED BY MIRIAM VICTORIA FROM DAY SHIFT, AND REPORTED TO DR KEARNS ORDERED NEW MIDLINE AND PARKER SOFT WRIST RESTRAINTS , TO BE IMPLEMENTED. Addendum: 02/27/19 at 0109 by Abelardo Irwin RN o2 at 28% via trache collar
[2019-02-26] MEDS: 0.45% NACL 1,000 ML IV SCH (20:24)
[2019-02-27] VITALS: BP_SYST 96
--- NOTE | 2019-02-27 | NUR ---
SATURATING 90-91% , PLACED ON 35% O2 VIA TRACH COLLAR EARLIER AT 2345 BY RT. PT DOZES ON AND OFF. VOIDED 350CC CLEAR IVON URINE VIA URINAL. ATE VERY LITTLE DINNER. FLUSHED GT WITH 100 CC H2O.
--- NOTE | 2019-02-27 03:00 | NUR ---
SLEPT INTERMITTENTLY. VOIDED 275CC CLEAR IVON URINE VIA URINAL. TANGENTIAL. INCOHERENT.
[2019-02-27] MEDS: 0.45% NACL 1,000 ML IV SCH ×3 (04:44→21:07)
--- NOTE | 2019-02-27 05:25 | NUR ---
DR LANGSTON HERE, SEEN PT. UPDATED ON STATUS. NEW ORDERS GIVEN TO BE IMPLEMENTED.
--- NOTE | 2019-02-27 06:00 | NUR ---
GT FLUSHED WITH 100CC H2O. MICHELLE GIVEN FOR WOUND HEALING. MUTTERS INCOHERENTLY. REMAINS IN GUARDED CONDITION.
--- NOTE | 2019-02-27 07:24 | NUR ---
opening note patient is resting in bed, report was received from third shift lieutenant nurse, patient has no IV access and MD is aware and we are waiting for midline placement to be done, patient has trach with FiO2 at 35% and 8L of oxygen, tube feeding running and patient is tolerating well, no signs of distress, educated patient neon sign mechanic light system and plan of care, patient did not give me a verbal response, patient has eyes opened, contact precautions in place, sitter present, no other needs at this time, fall/safety precautions in place.
[2019-02-27 07:35] LABS: CALCIUM 10.1 mg/dL (8.4-11.0); CREATININE 2.48 mg/dL (0.55-1.30); POTASSIUM 5.3 mmol/L (3.5-5.1)
[2019-02-27] MEDS: PANTOPRAZOLE SODIUM 40 MG/VIAL (PROTONIX) IVP SCH ×2 (07:55→20:52)
[2019-02-27 08:17] VITALS: BP_SYST 110
[2019-02-27] MEDS: DIPHENHYDRAMINE HCL 50 MG CAPSULE PO SCH ×4 (08:28→20:52)
[2019-02-27] MEDS: VITAMIN B COMPLEX 1 CAP/TAB NG SCH (08:28)
[2019-02-27] MEDS: MULTIVITS,CA,MINERALS/IRON/FA 1 TABLET NG SCH (08:28)
[2019-02-27] MEDS: CHOLECALCIFEROL (VITAMIN D3) 2,000 UNIT TABLET NG SCH (08:28)
[2019-02-27] MEDS: QUEtiapine FUMARATE 100 MG TABLET GT SCH ×3 (08:29→20:58)
[2019-02-27] MEDS: DIGOXIN 0.125 MG TABLET GT SCH (08:29)
[2019-02-27] MEDS: CARVEDILOL 6.25 MG TABLET (COREG) GT SCH ×2 (08:30→20:55)
--- NOTE | 2019-02-27 09:00 | NUR ---
Dr Medina came to see patient in room, ordered for tube feeding to be cut down to 50ml/hr.
--- NOTE | 2019-02-27 09:33 | NUR ---
patient is sitting in chair watching tv, patient refuses to have gown on and is okay with have a sheet on him, no signs of distress, on 35% Fio2, contact precautions in place, fall/safety precautions in place.
--- NOTE | 2019-02-27 10:00 | NUR ---
Dr Garcia came to see patient in the room.
--- NOTE | 2019-02-27 10:52 | NUR ---
RT in room orders from Dr Garcia to wean patient off t-bar and cap the trach, began using Oxymizer on 4L.
--- NOTE | 2019-02-27 11:50 | NUR ---
PICC nurse in room, right upper arm midline placed.
--- NOTE | 2019-02-27 12:00 | NUR ---
RT in room per Dr Garcia orders, order to be on oximizer was just for one hour, back on tbar at 35% with an O2 sat of 96%, no signs of distress.
[2019-02-27 12:11] VITALS: BP_SYST 117
--- NOTE | 2019-02-27 13:05 | NUR ---
Glucerna 1.5 and 1/2NS bag hung new tube feeding orders for Glucerna 1.5 at 40ml/hr with 200ml of free water every 6 hours, 1/2NS at 120ml/hr started now that patient has IV access, patient tolerated well, still in the recliner chair, patient does not want to go back to bed yet, watching tv, no signs of distress.
--- NOTE | 2019-02-27 14:18 | NUR ---
RT in room changed humidifier bottle, patient refused daily trach clean care at this time.
--- NOTE | 2019-02-27 14:59 | NUR ---
PHYSICAL THERAPY CO-SIGN The Physical Therapy Progress Notes documented by Regulatory Attorney have been reviewed. Reviewed/Co-Signed by: Damian Salas Documentation Done by: BRANDI MORRISON Addendum: 02/27/19 at 1507 by Damian Salas PT Amended: Links added.
--- NOTE | 2019-02-27 15:00 | NUR ---
PHYSICAL THERAPY CO-SIGN The Physical Therapy Progress Notes documented by Clinical Assoc have been reviewed. Reviewed/Co-Signed by: Damian Salas Documentation Done by:BRANDI MRORISON Addendum: 02/27/19 at 1507 by Damian Salas PT Amended: Links added.
--- NOTE | 2019-02-27 15:00 | NUR ---
PHYSICAL THERAPY CO-SIGN The Physical Therapy Progress Notes documented by It Security Administrator have been reviewed. Reviewed/Co-Signed by: Damian Salas Documentation Done by:HARINDER GASPAR PTA Addendum: 02/27/19 at 1507 by Damian Salas PT Amended: Links added.
--- NOTE | 2019-02-27 15:01 | NUR ---
PHYSICAL THERAPY CO-SIGN The Physical Therapy Progress Notes documented by Autocad Detailer have been reviewed. Reviewed/Co-Signed by: Damian Salas Documentation Done by:HARINDER GASPAR Addendum: 02/27/19 at 1507 by Damian Salas PT Amended: Links added.
--- NOTE | 2019-02-27 15:02 | NUR ---
PHYSICAL THERAPY CO-SIGN The Physical Therapy Progress Notes documented by Loadmaster have been reviewed. Reviewed/Co-Signed by: Damian Salas Documentation Done by:ELANA GASPAR Addendum: 02/27/19 at 1507 by Damian Salas PT Amended: Links added.
--- NOTE | 2019-02-27 15:02 | NUR ---
PHYSICAL THERAPY CO-SIGN The Physical Therapy Progress Notes documented by Owner Manager have been reviewed. Reviewed/Co-Signed by: Damian Salas Documentation Done by: ELANA GASPAR Addendum: 02/27/19 at 1507 by Damian Salas PT Amended: Links added.
--- NOTE | 2019-02-27 15:03 | NUR ---
PHYSICAL THERAPY CO-SIGN The Physical Therapy Progress Notes documented by Sludge Filtration Attendant have been reviewed. Reviewed/Co-Signed by: Damian Salas Documentation Done by:ELANA GASPAR Addendum: 02/27/19 at 1507 by Damian Salas PT Amended: Links added.
--- NOTE | 2019-02-27 15:04 | NUR ---
PHYSICAL THERAPY CO-SIGN The Physical Therapy Progress Notes documented by Director Of Customer Acquisition have been reviewed. Reviewed/Co-Signed by: Damian Salas Documentation Done by:BRANDI MORRISON Addendum: 02/27/19 at 1507 by Damian Salas PT Amended: Links added.
--- NOTE | 2019-02-27 15:05 | NUR ---
PHYSICAL THERAPY CO-SIGN The Physical Therapy Progress Notes documented by Parent Educator have been reviewed. Reviewed/Co-Signed by: Damian Salas Documentation Done by:ELANA GASPAR Addendum: 02/27/19 at 1507 by Damian Salas PT Amended: Links added.
--- NOTE | 2019-02-27 15:05 | NUR ---
PHYSICAL THERAPY CO-SIGN The Physical Therapy Progress Notes documented by Heavy Equipment Sales Associate have been reviewed. Reviewed/Co-Signed by: Damian Salas Documentation Done by:ELANA GASPAR Addendum: 02/27/19 at 1507 by Damian Salas PT Amended: Links added.
--- NOTE | 2019-02-27 15:06 | NUR ---
PHYSICAL THERAPY CO-SIGN The Physical Therapy Progress Notes documented by Cp Bleacher Operator have been reviewed. Reviewed/Co-Signed by: Damian Salas Documentation Done by: ELANA GASPAR Addendum: 02/27/19 at 1507 by Damian Salas PT Amended: Links added.
--- NOTE | 2019-02-27 15:30 | NUR ---
PATIENT KNEELED ON THE FLOOR Patient was sitting on the recliner chair, as I was preparing his scheduled medication, patient stated to me, "I want to sit on the floor now" and he grabbed onto the side rail of the bed and the armrest of the recliner chair and pushed himself up and grabbed the side rail with both hands to settle himself on the floor, he then stated " I want to nap on the floor" and grabbed his blankets to cover himself and laid on the floor, he then stated "this was nota good idea I should get up" help was called and with the assist of 5 people, patient was put back onto his bed, no signs of injury or distress, patient told me "I am sorry that I did not, I realized it was not a good idea and I should not have done that please forgive me". patient is laying in bed watching tv, IV fluids and tube feeding continued, on 35% oxygen with no signs of distress.
[2019-02-27 16:00] VITALS: BP_SYST 117
--- NOTE | 2019-02-27 16:00 | NUR ---
Patient requested to be suctioned RT was called, per patient request, so patient can be suctioned, patient tolerated well, no signs of distress.
--- NOTE | 2019-02-27 17:04 | NUR ---
Dr Pelaez came to see patient informed him that Dr Medina decreased his tube feeding rate and changed the type of feeding.
--- NOTE | 2019-02-27 17:45 | NUR ---
Patient is resting in bed eyes closed breathing easy and nonlabored, snoring, mumbling words, IV fluids running, tube feeding running and patient is tolerating well, on 35% oxygen, no needs addressed at this time, fall/safety precautions in place.
--- NOTE | 2019-02-27 18:51 | NUR ---
Closing note patient is resting in bed, eyes closed breathing easy and nonlabored, IV fluids and tube feeding running and patient is tolerating well, t-bar oxygen on 35% 8L, no signs of distress, sitter is present in the room, fall/safety and contact precautions in place, will endorse report to [facility] shift nurse to continue with care, patient is independent with using urinal, needs assistance to get to bedside commode, has orders that he can sit on the recliner chair with assistance, patient constantly takes off his pulse ox monitor, I have changed it twice but patient keeps taking it off, patient refused to have gown on but likes to be covered with blankets. Addendum: 02/27/19 at 1853 by Caitlyn Lopez RN patient can eat and drink with assistance, patient cannot take medications PO, medications need to be given through g-tube.
--- NOTE | 2019-02-27 20:05 | NUR ---
PM SHIFT ASSESSMENT Received patient lying in bed, no sob noted, has tbar with 02 at 35%, 8 liters, vital signs stable, midline to right upper arm intact and patent, IVF of 1/2 NS infusing at 120ml/hr. G tube feeding of glucerna 1.5 infusing at 40 ml/hr, no residual noted, patient on air mattress, helped reposition for comfort, isolation and safety measures in place, sitter at bedside, will closely monitor.
[2019-02-27 20:44] VITALS: BP_SYST 118
[2019-02-27] MEDS: QUEtiapine FUMARATE 100 MG TABLET PO SCH (20:55)
[2019-02-27 22:25] VITALS: BP_SYST 114
--- NOTE | 2019-02-27 22:37 | NUR ---
RN ROUNDS Patient resting in bed, no sob noted, due medications administered via gt, no residual noted, aspiration precautions maintained, Midline to right upper arm intact and patent, IVF infusing, patient made comfortable, safety measures in place, sitter at bedside.
--- NOTE | 2019-02-27 23:55 | NUR ---
RN ROUNDS Patient resting in bed, no sob noted, vital signs stable, IVF and gtube feeding infusing, patient repositioned for comfort, safety measures in place, sitter remains at bedside.
--- NOTE | 2019-02-28 01:23 | NUR ---
RN ROUNDS Patient awake, sitting up in bed, requesting to be suctioned, RT at bedside with trach suctioning, patient denies any pain or discomfort at this time able to use the urinal.
--- NOTE | 2019-02-28 02:01 | NUR ---
RN ROUNDS Patient resting quietly in bed, breathing is even and unlabored, IVF and GT feeding ongoing, sitter at bedside.
--- NOTE | 2019-02-28 04:03 | NUR ---
RN ROUNDS Patient continues to rest quietly in bed, breathing is even and unlabored, IVF and GT feeding ongoing, sitter remains at bedside.
[2019-02-28] MEDS: 0.45% NACL 1,000 ML IV SCH ×2 (05:28→14:04)
[2019-02-28 06:10] LABS: CALCIUM 10.4 mg/dL (8.4-11.0); CREATININE 2.33 mg/dL (0.55-1.30); POTASSIUM 4.7 mmol/L (3.5-5.1)
[2019-02-28 06:13] LABS: BASOPHILS # (AUTO) 0.1 K/uL (0.0-0.2); BASOPHILS % (AUTO) 1.1 % (0.0-2.0); EOSINOPHILS # (AUTO) 0.7 K/uL (0.0-0.4); EOSINOPHILS % (AUTO) 8.4 % (0.0-4.0); HEMATOCRIT 28.1 % (36-54); HEMOGLOBIN 9.3 g/dL (14.0-18.0); LYMPHOCYTES # (AUTO) 1.1 K/uL (1.0-5.5); LYMPHOCYTES % (AUTO) 12.9 % (20.5-51.5); MEAN CORPUSCULAR HEMOGLOBIN 28 pg (27-31); MEAN CORPUSCULAR HGB CONC 33 % (32-36); MEAN CORPUSCULAR VOLUME 85 fL (79.0-98.0); MONOCYTES # (AUTO) 1.1 K/uL (0.0-1.0); MONOCYTES % (AUTO) 12.8 % (1.7-9.3); NEUTROPHILS # (AUTO) 5.4 K/uL (1.8-7.7); NEUTROPHILS % (AUTO) 64.8 % (40.0-70.0); PLATELET COUNT (AUTO) 271 K/uL (130-430); RED CELL DISTRIBUTION WIDTH 21.8 % (9.0-15.0); WHITE BLOOD COUNT (AUTO) 8.3 K/uL (4.8-10.8)
--- NOTE | 2019-02-28 06:18 | NUR ---
RN ROUNDS Patient awake, in no distress, refusing hygiene care at this time, yelling, will try again shortly, Dr. Barros made rounds, new medication orders given. IVF and GT feeding ongoing, fall and isolation precautions maintained, sitter remains at bedside.
--- NOTE | 2019-02-28 08:00 | NUR ---
initial notes rec patient awake very confused and reorient at intervals,. ivf infusing well through a midline on the right upper arm. no infiltration noted. resp easy and unlabored. trache connected to a t bar at 8 liters and saturation is 95%. gt feeding at 40 cc /hr and guillaume well. no residual noted. gt site dressing was changed and noted with dried old blood. wont go to sleep and talks to himself very now and then. voiding freely to bacilio output but sometimes incontinent.
[2019-02-28] MEDS: CHOLECALCIFEROL (VITAMIN D3) 2,000 UNIT TABLET NG SCH (09:00)
[2019-02-28] MEDS: MULTIVITS,CA,MINERALS/IRON/FA 1 TABLET NG SCH (09:00)
[2019-02-28] MEDS: CARVEDILOL 6.25 MG TABLET (COREG) GT SCH ×2 (09:00→21:27)
[2019-02-28] MEDS: VITAMIN B COMPLEX 1 CAP/TAB NG SCH (09:00)
[2019-02-28] MEDS: PANTOPRAZOLE SODIUM 40 MG/VIAL (PROTONIX) IVP SCH ×2 (09:00→21:25)
[2019-02-28 09:15] VITALS: BP_SYST 117
--- NOTE | 2019-02-28 10:45 | NUR ---
PATIENT OBSERVED ATTEMPTING TO CLIMB OUT OF BED. NURSING PRESENT TO ASSIST FOR SAFETY. PATIENT IS AGITATED AND NOT FOLLOWING COMMANDS.
--- NOTE | 2019-02-28 10:59 | NUR ---
rounds contnue to sleelp and wakes up at intervals and talks to himself al lot. reoirnet at intervals/ no sob noted. voised using rhe urinal but missed it. was cleaned and checked patient at intervals and to moderate amount of bacilio output.
[2019-02-28] MEDS ORDERED: DIPHENHYDRAMINE INJ 50 MG/ML VIAL IVP ONE (11:20)
[2019-02-28] MEDS ORDERED: DIPHENHYDRAMINE INJ 50 MG/ML VIAL ONE (11:36)
--- NOTE | 2019-02-28 11:42 | NUR ---
rounds seen by dr lofton and ordered to give benadry 50 mg ivp now and did. sitting at a recliner.
[2019-02-28 12:17] VITALS: BP_SYST 139
[2019-02-28] MEDS: QUEtiapine FUMARATE 100 MG TABLET GT SCH ×3 (13:00→18:16)
[2019-02-28] MEDS: DIPHENHYDRAMINE HCL 50 MG CAPSULE PO SCH ×2 (14:14→21:25)
[2019-02-28] MEDS ORDERED: DIPHENHYDRAMINE HCL 50 MG CAPSULE PO ONE (15:00)
--- NOTE | 2019-02-28 16:00 | NUR ---
rounds seern by dr chu and with orders. rt at bedside switched the patient back to passy mauir ventilator . unable to tolerate pluging the trache and was back to trache mask.
--- NOTE | 2019-02-28 16:25 | NUR ---
RT NOTES No distress noted, saturation 98%, but trach tube plugging was discontinued and placed pt back on cool aerosol w/ PMV via trach mask due to pt. appears confused.
--- NOTE | 2019-02-28 16:30 | NUR ---
Nutrition F/U RD reviewed pt's current EMR including diet Hx, physician notes, nursing notes, pertinent labs/meds/procedures, care trends and care activity. Current Diet Order: Pureed x1 day Current EN Support: Glucerna 1.5 at 40 ml/hr, Free Water Flush: 200 via GT x1 day Subjective information: Pt underwent VFSS 02/25/19; ST rec for mechanical soft, chopped diet, however, new diet order reflects pureed diet. RN at bedside (sitter) stated that pt is tolerating diet well, ate 50% of both breakfast and lunch today, as well as drank Ensure. Pt seen sitting in recliner chair -- TF infusing, and pt talking, seemingly confused. RN reported that pt is tolerating TF as well, no issues. Pt is still a good candidate for Ok BID for lean muscle mass preservation. Pt's bedscale is now working, however, pt is not interested in getting in bed per RN report. RD encouraged RN to weigh pt once pt desires to get back in bed. Noted wt changes to EMR: 249#/113 kg (02/28/19) and 271#/123 kg (01/18/19) -- possible 22# wt loss within past month. ESTIMATED NUTRITIONAL REQUIREMENTS NEW CALORIES/DAY: 5890-3467 kcal/day (MSJ x 1-1.2 CBW d/t obesity, maintenance) PROTEIN/DAY: 127-196 gm/day (1.3-2 gm/kg Adj IBW for obesity, COPD) FLUID/DAY: Per physician d/t Hx of CHF PES 1. Morbid Obesity r/t inability to access healthier food choices AEB possible consumption of high calorie food and beverage from fast food restaurants and convenient stores, homelessness, and BMI 40 kg/m2. *no longer applicable 2. Inadequate nutrient intake r/t medication intake AEB PO intake not meeting 75% of estimated needs and nursing staff report. *ongoing 3. Unintentional wt loss related to possible lean muscle mass depletion as evidenced by possible 47#/15% wt change within 1 month. *ongoing 4. Inadequate EN support related to critical illness as evidenced by no currently infusing nutrition support. *resolved 5. Inadequate EN support r/t increased caloric needs AEB current EN regimen provides <75% of estimated calorie needs. *improved I: 1. Recommend Glucerna 1.5 at 40 ml/hr, Ok BID, Free Water Flush: 200 ml Q6h via GT Provides: 1600 kcal/day, 84 gm protein/day, and 1529 ml free water/day Meets: 94% of upper end of estimated caloric needs and 117% of lower end of estimated protein needs 2. Recommend continuing pureed diet -- comes standard w/ Ensure Enlive TID (1050 kcal/day, 60 gm protein/day) M: Monitor tolerance to EN support, provision of diet order w/ goal of pt meeting at least 85% of estimated nutritional needs, labs trending WNL, normal GI function, skin integrity/wt maintenance. E: High Risk; F/U within 2-3 days
--- NOTE | 2019-02-28 16:41 | NUR ---
Dietitian Recommendations 1. Recommend Glucerna 1.5 at 40 ml/hr, Ok BID, Free Water Flush: 200 ml Q6h via GT Provides: 1600 kcal/day, 84 gm protein/day, and 1529 ml free water/day Meets: 94% of upper end of estimated caloric needs and 117% of lower end of estimated protein needs 2. Recommend continuing pureed diet -- comes standard w/ Ensure Enlive TID (1050 kcal/day, 60 gm protein/day) LP, RD Please refer to Nutrition F/U for details.
--- NOTE | 2019-02-28 17:10 | NUR ---
RT NOTES Pt. appears to be tolerating cool aerosol w/ PMV on, appears more coherent, like his old self.
[2019-02-28] MEDS: LORazepam 2 MG/ML VIAL IVP PRN ×2 (17:26→21:41)
--- NOTE | 2019-02-28 19:12 | NUR ---
closing notes dolores restaints applied on both arms for agiation . dr lofton was called fpr orders/ haldol 10 mg po was given as well. no osb noted. trache to t bar in placed. no sob noted. bed to the lowest position and side rails up and locked.
--- NOTE | 2019-02-28 19:30 | NUR ---
rec patient awake. Patient is agitated and unable to follow commands. Attempting to get out of bed. Bilateral restraints in place. ivf infusing well through a midline on the right upper arm. Respirations equal and unlabored. trache connected to a t bar at 28 liters and saturation is 95%. gt feeding at 30 cc /hr and guillaume well. no residual noted. gt site dressing dried and intact. voiding freely/incontinent
[2019-02-28 20:00] VITALS: BP_SYST 130
--- NOTE | 2019-02-28 21:20 | NUR ---
Patient remains extremely agitated, unable to follow commands/uncooperative/attempting to get out of bed. PRN ativen 2mg IVP given. Vital signs WNL. Will continue to monitor.
[2019-02-28] MEDS: QUEtiapine FUMARATE 100 MG TABLET PO SCH (21:25)
--- NOTE | 2019-02-28 22:30 | NUR ---
Patient asleep. No respiratory distress noted. Sats=95% VS WNL. IVF infusing. GT feeding remains at 30cc/hr. Restrains released for 10 min.
--- NOTE | 2019-02-28 23:56 | NUR ---
CONSULTATION PAGED/CALLED Reason for Consultation: PSYCHOSIS Person Who was Notified:RICCARDO Consulting Physician: IVIS. SENT IT OUT TO DOCTOR ENED[address] Interpreter Specialty: Ordering Physician: URMILA
[2019-03-01] VITALS: BP_SYST 108
[2019-03-01 04:00] VITALS: BP_SYST 119
[2019-03-01] MEDS: 0.45% NACL 1,000 ML IV SCH ×2 (05:19→10:00)
[2019-03-01 06:17] LABS: CALCIUM 10.2 mg/dL (8.4-11.0); CREATININE 2.31 mg/dL (0.55-1.30); POTASSIUM 4.8 mmol/L (3.5-5.1)
[2019-03-01] MEDS: VITAMIN B COMPLEX 1 CAP/TAB NG SCH (08:20)
[2019-03-01] MEDS: CHOLECALCIFEROL (VITAMIN D3) 2,000 UNIT TABLET NG SCH (08:20)
[2019-03-01] MEDS: DIGOXIN 0.125 MG TABLET PO SCH (08:20)
[2019-03-01] MEDS: DIPHENHYDRAMINE HCL 50 MG CAPSULE PO SCH ×3 (08:20→20:17)
[2019-03-01] MEDS: PANTOPRAZOLE SODIUM 40 MG/VIAL (PROTONIX) IVP SCH ×2 (08:21→20:14)
[2019-03-01] MEDS: QUEtiapine FUMARATE 100 MG TABLET GT SCH ×3 (08:21→16:48)
[2019-03-01] MEDS: MULTIVITS,CA,MINERALS/IRON/FA 1 TABLET NG SCH (08:21)
[2019-03-01] MEDS: CARVEDILOL 6.25 MG TABLET (COREG) GT SCH ×2 (08:22→20:18)
[2019-03-01 08:56] VITALS: BP_SYST 134
[2019-03-01 12:26] VITALS: BP_SYST 112
[2019-03-01] MEDS: NACL 0.9% 1,000 ML IV SCH (14:00)
[2019-03-01 17:38] VITALS: BP_SYST 96
--- NOTE | 2019-03-01 17:58 | NUR ---
PT SHOWS NO S/S OF ACUTE DISTRESS PT REMAINS CONFUSED AT THIS TIME WILL CONT TO MONITOR
--- NOTE | 2019-03-01 19:15 | NUR ---
PM ASSESSMENT Pt in bed with eyes closed resting comfortably, no signs of acute distress or discomfort noted. VSS. Pt on O2 via TBAR 8L anfd Fio2 35%, tolerating well with even and unlabored breathing and O2 sats @ 94%. Pt has a MARISELA midline infusing NS @ 50 cc/hr, midline c/d/i. Bed is locked and in lowest position, call light within reach, will cont to monitor pt.
--- NOTE | 2019-03-01 19:30 | NUR ---
Per dayshift charge nurse Dr. Carol Watkins does not want pt on restraints. Restraints off pt at this time. Will cont to monitor pt.
[2019-03-01 20:00] VITALS: BP_SYST 102
[2019-03-01] MEDS: QUEtiapine FUMARATE 100 MG TABLET PO SCH (20:17)
--- NOTE | 2019-03-01 22:00 | NUR ---
Pt in and out of sleep, constantly mumbling to self. No signs of acute distress or discomfort noted. Will cont to monitor pt.
[2019-03-02] VITALS: BP_SYST 98
--- NOTE | 2019-03-02 | NUR ---
Pt in bed with eyes closed resting comfortably. No signs of acute distress or discomfort noted. Pt on O2 via TBAR, 8L, FIO2 35%, tolerating well with O2 sats @ 94% and even and unlabored breathing. Pt doesn't verbalize any needs at this time. Will cont to monitor pt.
--- NOTE | 2019-03-02 02:03 | NUR ---
Pt in bed with eyes closed, no signs of acute distress or discomfort noted. Pt still receiving glucern 1.5 tubefeeding @ 50 cc/hr through gtube. No residuals noted. Bed is locked and in lowest position, call light within reach, will cont to monitor.
[2019-03-02 04:00] VITALS: BP_SYST 116
--- NOTE | 2019-03-02 04:08 | NUR ---
Pt still in and out of sleep, mumbling and talking in sleep. No signs of acute distress or discomfort at this time. Bed is locked and in lowest position, call light within reach, will cont to monitor.
--- NOTE | 2019-03-02 05:38 | NUR ---
Attempted to change chucks under pt but pt refused, started swinging arms and stated "Not now! when im awake, im still sleeping". No signs of acute distress or discomfort noted. Will cont to monitor pt.
[2019-03-02 06:36] LABS: BASOPHILS # (AUTO) 0.1 K/uL (0.0-0.2); EOSINOPHILS # (AUTO) 0.7 K/uL (0.0-0.4); EOSINOPHILS % (AUTO) 6.9 % (0.0-4.0); HEMATOCRIT 28.9 % (36-54); HEMOGLOBIN 9.6 g/dL (14.0-18.0); LYMPHOCYTES # (AUTO) 0.9 K/uL (1.0-5.5); LYMPHOCYTES % (AUTO) 9.3 % (20.5-51.5); MEAN CORPUSCULAR HEMOGLOBIN 29 pg (27-31); MEAN CORPUSCULAR HGB CONC 33 % (32-36); MEAN CORPUSCULAR VOLUME 86 fL (79.0-98.0); MONOCYTES % (AUTO) 10.5 % (1.7-9.3); NEUTROPHILS # (AUTO) 7.1 K/uL (1.8-7.7); NEUTROPHILS % (AUTO) 72.3 % (40.0-70.0); PLATELET COUNT (AUTO) 283 K/uL (130-430); RED BLOOD CELL COUNT(AUTO) 3.38 MIL/uL (4.2-6.2); RED CELL DISTRIBUTION WIDTH 21.3 % (9.0-15.0); WHITE BLOOD COUNT (AUTO) 9.9 K/uL (4.8-10.8)
--- NOTE | 2019-03-02 07:15 | NUR ---
ENDORSEMENT Report given to oncoming RN using SBAR format and pt care was endorsed. No signs of acute distress or discomfort noted.
[2019-03-02 07:22] LABS: ALBUMIN 2.7 g/dL (3.4-4.8); CALCIUM 9.8 mg/dL (8.4-11.0); CREATININE 2.35 mg/dL (0.55-1.30); POTASSIUM 4.4 mmol/L (3.5-5.1); TOTAL BILIRUBIN 0.7 mg/dL (0.0-1.0)
--- NOTE | 2019-03-02 07:30 | NUR ---
Opening Notes Received patient lying comfortably in his bed, asleep but easily awaken with verbal and tactile stimuli. Trach intact and in place, respiration even and unlabored. G-tube intact and in place, infusing well. IVF infusing well. Direct observation at bedside. Call light within the reach. Will continue to monitor.
--- NOTE | 2019-03-02 07:43 | NUR ---
0743 PT REFUSED OXYMIZER. KEPT ON COOL AEROSOL. WILL CONT. TO MONITOR. SAT 93% HR 86. Addendum: 03/02/19 at 0755 by Heydi Linares RT Amended: Links added.
[2019-03-02 09:03] VITALS: BP_SYST 124
[2019-03-02] MEDS: CHOLECALCIFEROL (VITAMIN D3) 2,000 UNIT TABLET NG SCH (09:35)
[2019-03-02] MEDS: DIPHENHYDRAMINE HCL 50 MG CAPSULE PO SCH ×3 (09:35→20:07)
[2019-03-02] MEDS: VITAMIN B COMPLEX 1 CAP/TAB NG SCH (09:35)
[2019-03-02] MEDS: MULTIVITS,CA,MINERALS/IRON/FA 1 TABLET NG SCH (09:36)
[2019-03-02] MEDS: QUEtiapine FUMARATE 100 MG TABLET GT SCH ×3 (09:36→17:43)
[2019-03-02] MEDS: PANTOPRAZOLE SODIUM 40 MG/VIAL (PROTONIX) IVP SCH ×2 (09:37→20:07)
[2019-03-02] MEDS: CARVEDILOL 6.25 MG TABLET (COREG) GT SCH ×2 (09:37→20:08)
--- NOTE | 2019-03-02 09:45 | NUR ---
Medication administration Patient educated on drug usage and its potential side effects, patient verbalized understanding. All due meds given as ordered, patient able to tolerate. Denies any pain or discomfort at this time.
--- NOTE | 2019-03-02 11:30 | NUR ---
RN ROUNDS Patient resting well, eyes closed but easily awaken, verbally responsive. No moaning or grimacing noted. Patient now on oximizer, capped closed, able to tolerate, not in any form of distress. Kept HOB elevated. Direct observation at bedside. Call light within the reach.
[2019-03-02] MEDS: IPRATROPIUM/ALBUTEROL SULFATE 3 ML AMPUL.NEB (DUONEB) INH PRN (11:56)
[2019-03-02] MEDS: NACL 0.9% 1,000 ML IV SCH (12:37)
--- NOTE | 2019-03-02 13:30 | NUR ---
Patient transferred to room 125A Patient transferred to room 125A, well tolerated. Contact isolation concluded.
--- NOTE | 2019-03-02 14:52 | NUR ---
Opening Notes Received patient lying comfortably in his bed, asleep but easily awaken with verbal and tactile stimuli. Trach intact and in place, respiration even and unlabored. G-tube intact and in place, infusing well. IVF infusing well. Direct observation at bedside. Call light within the reach. Will continue to monitor. Addendum: 03/02/19 at 1457 by Yosi Guevara RN disregard, wrong time
--- NOTE | 2019-03-02 15:30 | NUR ---
RN ROUNDS Patient asleep, no moaning or grimacing noted. On oxymizer, well tolerated, no sob, no acute distress, no congestion. G-tube in place and intact. IVF infusing well. Call light within the reach.
[2019-03-02 16:55] VITALS: BP_SYST 104
--- NOTE | 2019-03-02 17:10 | NUR ---
1500 LAVAGED AND SUCTIONED THICK YELLOW SECRETIONS. TRACH CARE DONE. PT TOLERATING OXYMIZER. Addendum: 03/02/19 at 1712 by Heydi Linares RT Amended: Links added.
--- NOTE | 2019-03-02 17:12 | NUR ---
Nutrition Follow Up RD reviewed pt's current EMR including diet Hx, physician notes, nursing notes, pertinent labs/meds/procedures, care trends and care activity. Current EN Support: Glucerna 1.5 at 50 ml/hr, Ok BID, Free Water Flush: 200ml Q6H via GT x1 day Provides: 1800kcal, 104gPro, 1111ml of fluids per day Subjective information: Pt resting in bed, TF running at bedside with 427ml infused at time of RD visit. Pt reports wanting to eat again, feeling hungry and able to tolerate puree diet. Pt reports no abdominal discomfort, nausea, vomiting, or diarrhea with current TF. Per RN, diet was cancelled, and is being ordered again. RN providing late tray for lunch. No residuals with TF at this time. ESTIMATED NUTRITIONAL REQUIREMENTS NEW CALORIES/DAY: 5646-5241 kcal/day (MSJ x 1-1.2 CBW d/t obesity, maintenance) PROTEIN/DAY: 127-196 gm/day (1.3-2 gm/kg Adj IBW for obesity, COPD) FLUID/DAY: Per physician d/t Hx of CHF PES 1. Morbid Obesity r/t inability to access healthier food choices AEB possible consumption of high calorie food and beverage from fast food restaurants and convenient stores, homelessness, and BMI 40 kg/m2. *no longer applicable 2. Inadequate nutrient intake r/t medication intake AEB PO intake not meeting 75% of estimated needs and nursing staff report. *ongoing 3. Unintentional wt loss related to possible lean muscle mass depletion as evidenced by possible 47#/15% wt change within 1 month. *ongoing 4. Inadequate EN support related to critical illness as evidenced by no currently infusing nutrition support. *resolved 5. Inadequate EN support r/t increased caloric needs AEB current EN regimen provides <75% of estimated calorie needs. *improved I: 1. Continue Glucerna 1.5 at 50 ml/hr, Ok BID, Free Water Flush: 200 ml Q6h via GT Provides: 1800 kcal/day, 99 gm protein/day, and 1711 ml free water/day Meets: 82% of lower end of estimated caloric needs and 82% of lower end of estimated protein needs 2. Recommend continuing pureed diet -- comes standard w/ Ensure Enlive TID (1050 kcal/day, 60 gm protein/day) M: Monitor tolerance to EN support, provision of diet order w/ goal of pt meeting at least 85% of estimated nutritional needs, labs trending WNL, normal GI function, skin integrity/wt maintenance. E: High Risk; F/U within 2-3 days LT, RD
--- NOTE | 2019-03-02 17:30 | NUR ---
Dietitian Recommendations 1. Continue Glucerna 1.5 at 50 ml/hr, Ok BID, Free Water Flush: 200 ml Q6h via GT Provides: 1800 kcal/day, 99 gm protein/day, and 1711 ml free water/day Meets: 82% of lower end of estimated caloric needs and 82% of lower end of estimated protein needs 2. Recommend continuing pureed diet -- comes standard w/ Ensure Enlive TID (1050 kcal/day, 60 gm protein/day) Please see Nutrition Follow Up for details. LT, RD
[2019-03-02 18:03] VITALS: BP_SYST 104
--- NOTE | 2019-03-02 18:27 | NUR ---
nausea/spoke with Dr. Pelaez Patient complained of nausea, no abdominal distention, advised patient to keep head of the bed elevated, vitals are within normal range, called and spoke with Dr. Pelaez, notified regarding patient's complain, with new order for Zofran 4 mg IVP Q 4 hours PRN, telephone order read back, verified, noted and carried out.
[2019-03-02] MEDS ORDERED: ONDANSETRON HCL 4 MG/2 ML VIAL IVP PRN (18:30)
--- NOTE | 2019-03-02 18:58 | NUR ---
complain of pain, refused Tylenol patient complained of generalized pain, offered Tylenol, patient refused and wants a stronger pain medication. Paged Dr. Pelaez, awaiting for call back.
--- NOTE | 2019-03-02 19:10 | NUR ---
Dr Pelaez Called back Spoke with Dr. Pelaez regarding patient complaining of pain, no new order from MD, per MD just give patient his Tylenol or his seroquel or ativan. Remain to be alert, awake and verbally responsive. On oxymizer, respiration even and unlabored. Called light within the reach. Will endorse to the next shift.
--- NOTE | 2019-03-02 19:15 | NUR ---
PM ASSESSMENT Pt in bed with eyes closed resting comfortably, no signs of acute distress or discomfort noted. VSS. Pt on O2 via Oximizer 4L, tolerating well with even and unlabored breathing and O2 sats @ 98%. Pt has a trach that is capped at this time. Pt has a MARISELA midline infusing NS @ 50 cc/hr, midline c/d/i. Gtube noted infusing glucerna 1.5 @ 50 cc/hr. Bed is locked and in lowest position, call light within reach, sitter @ bedside, will cont to monitor pt.
[2019-03-02 20:00] VITALS: BP_SYST 111
[2019-03-02] MEDS: QUEtiapine FUMARATE 100 MG TABLET PO SCH (20:08)
[2019-03-03] VITALS: BP_SYST 107
--- NOTE | 2019-03-03 | NUR ---
Pt in and out of sleep, mumbling at times. No signs of acute distress or discomfort noted. Pt trach still capped and on oximizer 4L. Pt tolerating O2 well with even and unlabored breathing and O2 sats @ 98%. Bed is locked and in lowest position, call light within reach, will cont to monitor pt.
--- NOTE | 2019-03-03 02:10 | NUR ---
Pt woke up suddenly asking to urinate, yelling "I need to pee bro!". Helped pt to use the urinal. Pt able to urinate moderate amount of clear bacilio urine. Asked pt if he would like his chucks changed, but pt nodded no and angrily said "I want to sleep!" Will try again later. No signs of acute distress or discomfort noted. Bed is locked and in lowest position, call light within reach, will cont to monitor.
[2019-03-03] MEDS: NACL 0.9% 1,000 ML IV SCH (03:28)
[2019-03-03 04:00] VITALS: BP_SYST 99
--- NOTE | 2019-03-03 05:50 | NUR ---
Pt awake, yelling "I need this gown off! i feel stuck!" Pt proceeded to take gown off and would not let me put it back on him at this time. No signs of acute distress or discomfort seen however. Will cont to monitor pt.
--- NOTE | 2019-03-03 07:13 | NUR ---
ENDORSEMENT Report given to [facility] dayshift nurse using SBAR format and pt care was endorsed. No signs of acute distress or discomfort noted.
--- NOTE | 2019-03-03 07:44 | NUR ---
Opening Notes received patient lying comfortably in bed, head of the bed elevated. Alert, awake and verbally responsive. On 02 at 4lpm via Oxymizer, trach capped. Denies any pain or discomfort at this time. Midline intact and in place, IVF infusing well. G-tube in place and intact, infusing well. Sitter at bedside. Call light within the reach. Will continue to monitor.
[2019-03-03 07:57] LABS: ALBUMIN 2.7 g/dL (3.4-4.8); CALCIUM 9.6 mg/dL (8.4-11.0); CREATININE 2.15 mg/dL (0.55-1.30); PHOSPHORUS 4.9 mg/dL (2.7-4.5); POTASSIUM 4.2 mmol/L (3.5-5.1); TOTAL BILIRUBIN 0.6 mg/dL (0.0-1.0)
[2019-03-03 07:58] LABS: DIGOXIN 0.9 ng/mL (0.80-2.00)
[2019-03-03 08:20] VITALS: BP_SYST 127
[2019-03-03] MEDS: MULTIVITS,CA,MINERALS/IRON/FA 1 TABLET NG SCH (09:40)
[2019-03-03] MEDS: VITAMIN B COMPLEX 1 CAP/TAB NG SCH (09:40)
[2019-03-03] MEDS: CHOLECALCIFEROL (VITAMIN D3) 2,000 UNIT TABLET NG SCH (09:40)
[2019-03-03] MEDS: QUEtiapine FUMARATE 100 MG TABLET GT SCH ×3 (09:41→17:44)
[2019-03-03] MEDS: DIPHENHYDRAMINE HCL 50 MG CAPSULE PO SCH ×3 (09:41→21:00)
[2019-03-03] MEDS: PANTOPRAZOLE SODIUM 40 MG/VIAL (PROTONIX) IVP SCH ×2 (09:42→22:08)
[2019-03-03] MEDS: CARVEDILOL 6.25 MG TABLET (COREG) GT SCH ×2 (09:42→22:08)
--- NOTE | 2019-03-03 09:45 | NUR ---
Medication administration\ Patient educated on drug usage and its potential side effects, patient verbalized understanding. All medications given as ordered, well tolerated. Trach in place. Denies any pain or discomfort at this time. Attended to needs and anticipated. Sitter at bedside.
--- NOTE | 2019-03-03 11:36 | NUR ---
PATIENT GOT UP FROM BED WANTED TO WALK TO RECLINER CHAIR SAT DOWN THEN WALKED TO BEDSIDE COMMODE HAD AN EXTRA LARGE BM THEN BACK TO RECLINER WITH HELP
[2019-03-03 11:42] VITALS: BP_SYST 121
--- NOTE | 2019-03-03 11:45 | NUR ---
Ambulated to chair Patient got up and used the bedside commode, able to do bowel movement. Currently sitting on the chair, tolerating well. Trach intact and in place. G-tube intact and in place. Call light within the reach. Sitter at bedside.
--- NOTE | 2019-03-03 13:30 | NUR ---
RN ROUNDS Patient sitting comfortably in his chair, asleep but easily awaken with verbal and tactile stimuli,sitter at bedside. Noted with congestion, suctioned trach, suctioned brown thick drainage, well tolerated. Call light within the reach.
[2019-03-03 14:58] VITALS: BP_SYST 123
--- NOTE | 2019-03-03 15:30 | NUR ---
RN ROUNDS Remain to be sitting in his chair,respiration even and unlabored, on 02 at 4lpm via oxymizer, tolerating well. Respiration even and unlabored. Call light within the reach, sitter at bedside.
--- NOTE | 2019-03-03 15:47 | NUR ---
1430 SUCTIONED PT TRACH CARE DONE TRACH TIES CHANGED.PT TOLERATING. Addendum: 03/03/19 at 1551 by Heydi Linares RT Amended: Links added.
--- NOTE | 2019-03-03 17:30 | NUR ---
RN ROUNDS Patient remain to be alert, awake and verbally responsive. Still sitting in his chair. Denies any pain or discomfort at this time. Sitter at bedside. Call light within the reach.
--- NOTE | 2019-03-03 19:28 | NUR ---
Initial note: Report received from akira RN. Patient is awake, sitting up in recliner at bedside. Alert and oriented to name and place. Tolerating 4L oximizer, even and unlabored breathing. MARISELA PICC line is patent and benign, receiving IV fluids per MD order. This RN to remain at bedside as sitter. Safety and fall precautions in place. Will continue with plan of care. Addendum: 03/04/19 at 2234 by Horace Feliz RN Correction: wrong date, please disregard above note.
--- NOTE | 2019-03-03 19:30 | NUR ---
assumed care of patient lying in recliner. 02 at 4lpm via Oxymizer, respiration even and unlabored. IVF infusing well. G-tube in place and intact, with Glucerna infusing well. Denies any pain or discomfort at this time. call light within the reach.
--- NOTE | 2019-03-03 19:34 | NUR ---
Closing Notes SBAR report given to the night monitor. Patient remain to be alert, awake and verbally responsive. 02 at 4lpm via Oxymizer, respiration even and unlabored. IVF infusing well. G-tube in place and intact, with Glucerna infusing well. Denies any pain or discomfort at this time. call light within the reach.
--- NOTE | 2019-03-03 21:00 | NUR ---
patient awake. cooperative but reports feeling paranoid with roommate. will administer scheduled medications. Will continue to monitor for safety.
[2019-03-03] MEDS: QUEtiapine FUMARATE 100 MG TABLET PO SCH (22:08)
[2019-03-03 22:20] VITALS: BP_SYST 123
[2019-03-04] VITALS: BP_SYST 96
--- NOTE | 2019-03-04 | NUR ---
no change from assessment. Patient asleep. no acute distress noted.
[2019-03-04] MEDS: NACL 0.9% 1,000 ML IV SCH ×2 (00:18→21:02)
[2019-03-04 04:00] VITALS: BP_SYST 127
[2019-03-04 06:55] LABS: BASOPHILS # (AUTO) 0.1 K/uL (0.0-0.2); BASOPHILS % (AUTO) 1.2 % (0.0-2.0); EOSINOPHILS # (AUTO) 0.5 K/uL (0.0-0.4); EOSINOPHILS % (AUTO) 5.9 % (0.0-4.0); HEMATOCRIT 27.1 % (36-54); LYMPHOCYTES % (AUTO) 11.7 % (20.5-51.5); MEAN CORPUSCULAR HEMOGLOBIN 29 pg (27-31); MEAN CORPUSCULAR HGB CONC 33 % (32-36); MEAN CORPUSCULAR VOLUME 86 fL (79.0-98.0); MONOCYTES % (AUTO) 11.7 % (1.7-9.3); NEUTROPHILS # (AUTO) 6.2 K/uL (1.8-7.7); NEUTROPHILS % (AUTO) 69.5 % (40.0-70.0); PLATELET COUNT (AUTO) 281 K/uL (130-430); RED BLOOD CELL COUNT(AUTO) 3.15 MIL/uL (4.2-6.2); WHITE BLOOD COUNT (AUTO) 8.8 K/uL (4.8-10.8)
--- NOTE | 2019-03-04 07:35 | NUR ---
Initial notes Pt sitting in the chair, watching tv. On o2 4l Oximixer, tolerating well. Denies any pain or discomfort. No signs of agitation so far. Will monitor.
[2019-03-04 07:58] VITALS: BP_SYST 111
[2019-03-04 08:18] LABS: ALBUMIN 2.8 g/dL (3.4-4.8); CALCIUM 9.8 mg/dL (8.4-11.0); CREATININE 1.98 mg/dL (0.55-1.30); POTASSIUM 4.3 mmol/L (3.5-5.1); TOTAL BILIRUBIN 0.6 mg/dL (0.0-1.0)
[2019-03-04] MEDS: PANTOPRAZOLE SODIUM 40 MG/VIAL (PROTONIX) IVP SCH ×2 (09:01→21:03)
[2019-03-04] MEDS: QUEtiapine FUMARATE 100 MG TABLET GT SCH ×3 (09:04→16:35)
[2019-03-04] MEDS: CHOLECALCIFEROL (VITAMIN D3) 2,000 UNIT TABLET NG SCH (09:04)
[2019-03-04] MEDS: DIPHENHYDRAMINE HCL 50 MG CAPSULE PO SCH ×3 (09:04→21:03)
[2019-03-04] MEDS: VITAMIN B COMPLEX 1 CAP/TAB NG SCH (09:04)
[2019-03-04] MEDS: DIGOXIN 0.125 MG TABLET PO SCH (09:05)
[2019-03-04] MEDS: MULTIVITS,CA,MINERALS/IRON/FA 1 TABLET NG SCH (09:05)
[2019-03-04] MEDS: CARVEDILOL 6.25 MG TABLET (COREG) GT SCH ×2 (09:07→21:07)
--- NOTE | 2019-03-04 10:14 | NUR ---
bed Bath given with RULING MACHINE OPERATOR. pt cooperative so far. Remain sitting on the recliner chair. denies any pain. No distress Noted. tracheal suctioning done with small thick secretions. pt tolerated well.
[2019-03-04 12:00] VITALS: BP_SYST 113
--- NOTE | 2019-03-04 12:30 | NUR ---
Notes- pt able to feed himself during lunch. Pt stated that he does not need help. pt eat x1 bite of bread and chicken. Eat some of he soup.Remain on recliner chair.
[2019-03-04] MEDS: IPRATROPIUM/ALBUTEROL SULFATE 3 ML AMPUL.NEB (DUONEB) INH PRN ×4 (13:18→21:17)
[2019-03-04] MEDS: ACETAMINOPHEN 650 MG/20.3 ML UDC NG PRN (13:39)
--- NOTE | 2019-03-04 13:40 | NUR ---
Pt complain of pain on his back and shoulder. pt is asking for Morphine, Informed patient that there is only Tylenol ordered at this time. Tylenol given and repositioned patient.
[2019-03-04] MEDS ORDERED: FLU VACC QS2019-20 36MOS UP/PF 60 MCG/0.5 ML SYRINGE I.M. PRN (14:30)
[2019-03-04 16:00] VITALS: BP_SYST 117
--- NOTE | 2019-03-04 18:19 | NUR ---
Resting at this time, just had breathing treatment.eats his salad and bread. Wants to eat again later. no acute distress noted. denies any pain or discomfort at this time. all needs meet through out shift.
--- NOTE | 2019-03-04 19:28 | NUR ---
Initial note: Report received from dayshift RN. Patient is awake, sitting up in recliner at bedside. Alert and oriented to name and place. Tolerating 4L oximizer, even and unlabored breathing. MARISELA PICC line is patent and benign, receiving IV fluids per MD order. This RN to remain at bedside as sitter. Safety and fall precautions in place. Will continue with plan of care.
[2019-03-04 20:00] VITALS: BP_SYST 134
--- NOTE | 2019-03-04 20:44 | NUR ---
Recliner: Patient is sitting on the recliner at bedside and is refusing to sleep in the bed for tonight. Patient stated he is very comfortable on the recliner at this time and doesn't want to move to the bed. Patient insists on sleeping on the recliner tonight. Will administer scheduled medications.
[2019-03-04] MEDS: QUEtiapine FUMARATE 100 MG TABLET PO SCH (21:03)
--- NOTE | 2019-03-04 21:05 | NUR ---
Med pass: Scheduled medications administered at this time per MD order. MARISELA midline is patent and intact. G-tube intact, 0 ML gastric residual aspirated. Sitter at bedside. Safety, fall precautions in place. Will continue monitoring.
--- NOTE | 2019-03-04 21:16 | NUR ---
RT at bedside: Patient refusing cool aerosol mask, stated he wants to be able to talk. Currently SaO2 = 99% on 4L oximizer. Breathing treatment was administered per patient request. Sitter at bedside. Safety, fall precautions in place. Will continue to monitor.
--- NOTE | 2019-03-04 23:12 | NUR ---
Sleeping: Patient is asleep on recliner. No acute distress noted. Tolerating 4L oximizer, even and unlabored breathing. IV fluids infusing as ordered. Sitter at bedside. Will continue monitoring.
[2019-03-05 00:02] VITALS: BP_SYST 106
--- NOTE | 2019-03-05 01:41 | NUR ---
Sleeping: Patient is asleep on recliner, moves in his sleep occasionally. No acute distress. 4L Oximizer in place, patient tolerating well, even and unlabored respirations. IV fluids infusing well to MARISELA midline. Sitter at bedside. Safety, fall precautions in place. Will continue to monitor.
[2019-03-05] MEDS: IPRATROPIUM/ALBUTEROL SULFATE 3 ML AMPUL.NEB (DUONEB) INH PRN ×4 (03:20→18:37)
--- NOTE | 2019-03-05 03:38 | NUR ---
RT at bedside: Patient woke up from sleep and requested a breathing treatment. RT administering treatment per patient request. SaO2 = 97% on 4L Oximizer. Sitter at bedside. Will continue to monitor.
[2019-03-05 04:06] VITALS: BP_SYST 111
--- NOTE | 2019-03-05 05:22 | NUR ---
Sleeping: Patient is in recliner at bedside sleeping. Occasionally mumbles to himself while asleep. No acute distress. Tolerating 4L NC, breathing is even and unlabored. IV fluids infusing as ordered to MARISELA midline. Sitter at bedside. Will continue to monitor.
[2019-03-05 05:52] LABS: CALCIUM 9.5 mg/dL (8.4-11.0); CREATININE 1.82 mg/dL (0.55-1.30); POTASSIUM 4.4 mmol/L (3.5-5.1)
--- NOTE | 2019-03-05 06:42 | NUR ---
Closing note: Patient is resting with eyes closed in recliner. No acute distress. Tolerating 4L Oximizer, respirations are even and unlabored. IV fluids infusing as ordered to MARISELA midline, site is patent and benign. All needs met. Safety and fall precautions maintained. Sitter remained at bedside throughout shift. Will endorse care to dayshift sitter and RN.
--- NOTE | 2019-03-05 08:00 | NUR ---
Note Pt sitting up in recliner, c/o of difficulty breathing (O2 sats at 100%). RT came to bedside to administer breathing treatment at this time. Pt has trach with Oxymizer at 4L O2. Pt's MARISELA PICC intact and patent infusing IVF's well. Pt states he will eat his breakfast later on and have his Vital signs taken later - not now. Sitter in room at bedside to assist with needs and care. Call light within reach.
[2019-03-05 09:00] VITALS: BP_SYST 122
[2019-03-05] MEDS: VITAMIN B COMPLEX 1 CAP/TAB NG SCH (09:02)
[2019-03-05] MEDS: PANTOPRAZOLE SODIUM 40 MG/VIAL (PROTONIX) IVP SCH ×2 (09:03→22:19)
[2019-03-05] MEDS: CHOLECALCIFEROL (VITAMIN D3) 2,000 UNIT TABLET NG SCH (09:03)
[2019-03-05] MEDS: MULTIVITS,CA,MINERALS/IRON/FA 1 TABLET NG SCH (09:03)
[2019-03-05] MEDS: QUEtiapine FUMARATE 100 MG TABLET GT SCH ×3 (09:04→16:06)
[2019-03-05] MEDS: CARVEDILOL 6.25 MG TABLET (COREG) GT SCH ×2 (09:04→22:19)
[2019-03-05] MEDS: DIPHENHYDRAMINE HCL 50 MG CAPSULE PO SCH ×3 (09:04→22:18)
--- NOTE | 2019-03-05 11:00 | NUR ---
Note Pt took all his PO medications orally with water and ate his breakfast with assist from maryse Snell. Vital signs were taken. Pt prefers to sit up in recliner at this time. PT did come to work with pt at this time as well. Pt's MARISELA PICC intact and patent infusing IVF's well. Tele unit attached and intact all shift. No needs noted at this time. Call light within reach.
[2019-03-05 12:30] VITALS: BP_SYST 133
--- NOTE | 2019-03-05 14:34 | NUR ---
DC PLANNING Received msg from Dr Garcia that trach will be able to be taken out. I called & discussed dc planning w Dr Pelaez, gave ph order for dc planning for SNF, will need Rehab(physical Therapy). Called & spoke w Shannen, ph [phone], agreeable w SNF. Would prefer contracted SNF in the area, [place], if not then to try [place], [place], prefers no [place]. Updated erick Mckeon sr. merchandise planner.
--- NOTE | 2019-03-05 15:05 | NUR ---
Note Pt resting in recliner all day, pt's preference. Pt moves and turns independently in recliner. Pt has had sitter at bedside all shift to assist with needs and care. Pt has eyes closed and covered in blankets sleeping at this time. No respiratory distress noted at this time.
--- NOTE | 2019-03-05 15:16 | NUR ---
Nutrition F/U RD reviewed pt's current EMR including diet Hx, physician notes, nursing notes, pertinent labs/meds/procedures, care trends, and care activity. Current Diet Order: Cardiac x1 day Subjective information: Pt was seen resting in reclining chair w/ PETROLEUM REFINERY WORKER/sitter at bedside. Pt reported that he has been eating "great" and tolerating diet texture well without difficulty. Pt is no longer receiving EN support via GT. RD offered Ensure Enlive ONS and Ok for lean muscle preservation -- pt agreeable to chocolate-flavored ONS and fruit punch Ok. RD noted in [employer]. Pt had no nutrition-related concerns. Per EMR, PO intakes indicate poor intakes: 35% average x5 meals. Recent wt Hx reveals some wt fluctuations possibly r/t Hx of CHF: 255#/115 kg (03/03/19), 246#/112 kg (03/02/19), 242#/110 kg (03/01/19), 249#/113 kg (02/28/19). ESTIMATED NUTRITIONAL REQUIREMENTS NEW CALORIES/DAY: 1393-3558 kcal/day (MSJ x 1-1.2 CBW d/t obesity, maintenance) PROTEIN/DAY: 127-196 gm/day (1.3-2 gm/kg Adj IBW for obesity, COPD) FLUID/DAY: Per physician d/t Hx of CHF PES 1. Morbid Obesity r/t inability to access healthier food choices AEB possible consumption of high calorie food and beverage from fast food restaurants and convenient stores, homelessness, and BMI 40 kg/m2. *no longer applicable 2. Inadequate nutrient intake r/t medication intake AEB PO intake not meeting 75% of estimated needs and nursing staff report. *ongoing 3. Unintentional wt loss related to possible lean muscle mass depletion as evidenced by possible 47#/15% wt change within 1 month. *ongoing 4. Inadequate EN support related to critical illness as evidenced by no currently infusing nutrition support. *resolved 5. Inadequate EN support r/t increased caloric needs AEB current EN regimen provides <75% of estimated calorie needs. *improved I: 1. Recommend cardiac diet w/ Ensure Enlive TID, Ok BID (1230 kcal/day, 65 gm protein/day) M: Monitor tolerance to EN support, provision of diet order w/ goal of pt meeting at least 85% of estimated nutritional needs, labs trending WNL, normal GI function, skin integrity/wt maintenance. E: Moderate Risk; F/U within 3-5 days
--- NOTE | 2019-03-05 15:27 | NUR ---
Dietitian Recommendations *Recommend cardiac diet w/ Ensure Enlive TID, Ok BID (1230 kcal/day, 65 gm protein/day) LP, RD Please refer to Nutrition F/U for details.
[2019-03-05] MEDS: NACL 0.9% 1,000 ML IV SCH (16:06)
[2019-03-05 16:58] VITALS: BP_SYST 113
--- NOTE | 2019-03-05 18:30 | NUR ---
Note Pt's sitter Lawson RN since 183 - RN for next shift arrives at 1900. Pt sitting in recliner eating his dinner. Trach intact with Oxymizer at 3L of O2 at this time. No SOB/resp distress or severe pain/discomfort noted at this time. Pt was checked on q1' and PRN all shift for needs and care. GT site clamped all shift and ate his diet and took all his PO medications orally this shift. Pt has sitter at bedside all shift - Alis CHRISTINA. No needs noted at this time. Call light within reach.
--- NOTE | 2019-03-05 19:30 | NUR ---
Opening notes Received report. Patient is sitting in recliner chair, patient able to make needs known. Had just received breathing treatment. RT suctioned and obtained thick yellow secretions. No signs of distress noted. Breathing even and unlabored, on 3 L oximizer. O2 sat 95%. Trach is in place, plugged. MARISELA PICC noted infusing fluids. G-tube in place, not in use. 0 residual noted. VSS. Snacks will be provided per patient request. No other needs. Call light with the patient. Safety precautions in place. RN to be sitter. Addendum: 03/05/19 at 2338 by Theodora Whitten RN CORRECTION: MARISELA MIDLINE, NOT A PICC LINE
[2019-03-05 20:05] VITALS: BP_SYST 125
--- NOTE | 2019-03-05 21:04 | NUR ---
Medications Patient refusing medications stating "No, I'm sleeping." explained to patient the purpose of medications. Patient states "I'm sleeping, maybe later." Will try again at later time. No signs of distress noted. Breathing is even and unlabored on 3 L oximizer. Addendum: 03/05/19 at 2201 by Theodora Whitten RN Patient self awoken to use urinal, 200 ml of clear urine noted. Offered patient PM medications, explained action and benefits of medication, but patient getting upset stating "I hate being woken up, I'll wake up later and take them then, ok?!"
[2019-03-05] MEDS: QUEtiapine FUMARATE 100 MG TABLET PO SCH (22:18)
--- NOTE | 2019-03-06 00:13 | NUR ---
Sleeping Patient in and out of sleep. Wakes up to void into urinal, 400 ml noted. Patient ate a snack, tolerated well. Patient states he does not like hospital food. Will see in AM if any other food available. VSS. No signs of distress noted. Breathing even and unlabored on 3 L oximizer. No other needs. Call light with the patient. Safety precautions in place. Addendum: 03/06/19 at 0100 by Theodora Whitten RN RT at bedside administering breathing treatment per patient request. Addendum: 03/06/19 at 0130 by Theodora Whitten RN RT suctioned patient through trach. Obtained small amount of thick yellow secretions. Patient able to help and cough out secretions. Patient encouraged to continue to cough. Patient states he feels much better and is now watching TV. Patient is forgetful at times and stating events that are not currently happening. Safety precautions in place, sitter at bedside.
[2019-03-06 00:18] VITALS: BP_SYST 117
[2019-03-06] MEDS: IPRATROPIUM/ALBUTEROL SULFATE 3 ML AMPUL.NEB (DUONEB) INH PRN (00:58)
--- NOTE | 2019-03-06 03:20 | NUR ---
Sleeping Patient intermittently sleeps. Patient talks in his sleep. No signs of distress noted. Breathing even and unlabored, on 3 L Oximizer. Patient voided 300 ml into urinal. No other needs. Safety precautions in place. Sitter at bedside. Addendum: 03/06/19 at 0511 by Theodora Whitten RN Patient awake. Stating he can't breathe. Encouraged patient to cough and take deep breaths. RT at bedside to suction patient. Obtained small amount of thick yellow secretions. Trach site cleaned and dressing also changed. Safety precautions in place.
[2019-03-06 05:50] LABS: INR 1.3 (0.80-1.20); PROTHROMBIN TIME 12.6 SECS (9.5-12.5)
[2019-03-06 06:21] LABS: CALCIUM 9.7 mg/dL (8.4-11.0); CREATININE 1.63 mg/dL (0.55-1.30); PHOSPHORUS 4.5 mg/dL (2.7-4.5); POTASSIUM 3.9 mmol/L (3.5-5.1)
--- NOTE | 2019-03-06 07:11 | NUR ---
Closing notes Patient asleep in recliner chair, refusing to return to bed. No signs of distress noted. Breathing even and unlabored, on 3 L oximizer. Trach in place and plugged, suctioned throughout the shift with thick, yellow secretions. G-tube in place, not being used. Patient tolerating food by mouth. Midline in place, infusing fluids. Attempted to change dressing, but patient refused stating "I'm still sleeping. Later." Patient has spurts of agitation and forgetfulness. Needs reorientation. All needs met throughout the shift. Safety precautions in place, sitter at bedside throughout the shift. Care endorsed to MIRIAM Dye.
[2019-03-06 07:17] LABS: BASOPHILS # (AUTO) 0.1 K/uL (0.0-0.2); BASOPHILS % (AUTO) 1.2 % (0.0-2.0); EOSINOPHILS # (AUTO) 0.7 K/uL (0.0-0.4); EOSINOPHILS % (AUTO) 7.8 % (0.0-4.0); HEMATOCRIT 26.3 % (36-54); HEMOGLOBIN 8.7 g/dL (14.0-18.0); LYMPHOCYTES # (AUTO) 1.2 K/uL (1.0-5.5); LYMPHOCYTES % (AUTO) 13.9 % (20.5-51.5); MEAN CORPUSCULAR HEMOGLOBIN 28 pg (27-31); MEAN CORPUSCULAR HGB CONC 33 % (32-36); MEAN CORPUSCULAR VOLUME 86 fL (79.0-98.0); NEUTROPHILS # (AUTO) 5.6 K/uL (1.8-7.7); NEUTROPHILS % (AUTO) 65.1 % (40.0-70.0); PLATELET COUNT (AUTO) 297 K/uL (130-430); RED BLOOD CELL COUNT(AUTO) 3.05 MIL/uL (4.2-6.2); RED CELL DISTRIBUTION WIDTH 20.8 % (9.0-15.0); WHITE BLOOD COUNT (AUTO) 8.5 K/uL (4.8-10.8)
--- NOTE | 2019-03-06 07:29 | NUR ---
OPENING NOTE Patient asleep in the recliner chair. No acute distress. Respiration even and unlabored. On O2 3L/min via oximizer. Trach intact to plugged. Skin warm and dry to touch. Midline intact to MARISELA, no redness, no swelling, no drainage. On NS at 50ml/hr, infusing well. GT intact and clamped. Safety measure maintained. Call light within reached. Will continue to monitor.
--- NOTE | 2019-03-06 07:58 | NUR ---
MIDLINE DRESSING CHANGED Midline dressing changed, aseptic technique used for dressing change. Patient tolerated procedure well. Safety measure maintained. Call light within reached. Patient sitting in the recliner chair. Continue sit at bedside with patient and close observation.
[2019-03-06 08:09] VITALS: BP_SYST 152
--- NOTE | 2019-03-06 08:10 | NUR ---
PHYSICAL THERAPY CO-SIGN The Physical Therapy Progress Notes documented by Community Recreation Programmer have been reviewed. Reviewed/Co-Signed by: Damian Salas Documentation Done by: Ashish Tobin PTA Addendum: 03/06/19 at 0811 by Damian Salas PT Amended: Links added.
--- NOTE | 2019-03-06 08:10 | NUR ---
PHYSICAL THERAPY CO-SIGN The Physical Therapy Progress Notes documented by Wood Mechanist have been reviewed. Reviewed/Co-Signed by: Damian Salas Documentation Done by:Ashish Tobin Addendum: 03/06/19 at 0811 by Damian Salas PT Amended: Links added.
--- NOTE | 2019-03-06 08:53 | NUR ---
SEEN AND EXAMINED BY CHAYITO TEE.
[2019-03-06] MEDS: VITAMIN B COMPLEX 1 CAP/TAB NG SCH (09:19)
[2019-03-06] MEDS: QUEtiapine FUMARATE 100 MG TABLET GT SCH ×3 (09:19→16:52)
[2019-03-06] MEDS: MULTIVITS,CA,MINERALS/IRON/FA 1 TABLET NG SCH (09:19)
[2019-03-06] MEDS: PANTOPRAZOLE SODIUM 40 MG/VIAL (PROTONIX) IVP SCH ×2 (09:19→20:41)
[2019-03-06] MEDS: DIGOXIN 0.125 MG TABLET PO SCH (09:20)
[2019-03-06] MEDS: DIPHENHYDRAMINE HCL 50 MG CAPSULE PO SCH ×3 (09:20→20:41)
[2019-03-06] MEDS: CARVEDILOL 6.25 MG TABLET (COREG) GT SCH ×2 (09:21→20:42)
[2019-03-06] MEDS: CHOLECALCIFEROL (VITAMIN D3) 2,000 UNIT TABLET NG SCH (09:22)
--- NOTE | 2019-03-06 09:50 | NUR ---
0950- pt decannulated by Dr. Garcia; continues on 3 lpm via oxymizer; 99% SpO2 documented; pt sitting upright on chair w/ no distress noted; will continue to monitor pt and give tx PRN Addendum: 03/06/19 at 1009 by Heydi Linares RT Amended: Links added.
--- NOTE | 2019-03-06 09:50 | NUR ---
DECANNULATED Seen and examined by Roberta Spencer and decannulated the patient at this time. Patient tolerated the procedure well. No bleeding. No acute distress noted. O2 sat=97% on O2 3L/min via oximizer. A non-woven drain sponge covered the stoma site and patient able to talk. Denied of pain. I sit with the patient at bedside as a sitter. Patient remains in recliner chair. Safety measure maintained. Call light within reached. Continue to monitor.
--- NOTE | 2019-03-06 10:58 | NUR ---
ASLEEP Patient asleep in the recliner chair. Respiration even and unlabored. No acute distress. On s/p decannulate. On O2 3L/min via oximizer. Safety measure maintained. Call light within reached. Continue to sit with patient at bedside for close observation.
[2019-03-06 11:32] VITALS: BP_SYST 135
--- NOTE | 2019-03-06 11:34 | NUR ---
PT SERVICE Ambulated patient in the hallway by using walker and assisted by PT and me. Patient tolerated well, ambulated without O2. O2 sat=97% after back to bed. No acute distress. Safety measure maintained. Call light within reached. Bed locked in low position, side rails up, bed alarm on. Continue sit at bedside and close monitor.
[2019-03-06] MEDS: NACL 0.9% 1,000 ML IV SCH (11:41)
--- NOTE | 2019-03-06 12:35 | NUR ---
ASLEEP Patient asleep in the bed. Respiration even and unlabored. No acute distress. On s/p decannulate. Breath in RA. Safety measure maintained. Call light within reached. Bed locked in low position, side rails up, bed alarm on. Continue to sit with patient at bedside for close observation.
--- NOTE | 2019-03-06 14:12 | NUR ---
PATIENT TALKING VIA PHONE Patient talking to his father via phone. No acute distress. On s/p trach removal, O2 sat =92% RA. Safety measure maintained. Call light within reached. Bed locked in low position, side rails up, bed alarm on. Continue sit at bedside with the patient and close monitor.
--- NOTE | 2019-03-06 14:48 | NUR ---
[employer]: BUSINESS OBJECTS REPORT DEVELOPER receved phone call from pts. dad asking if BUSINESS OBJECTS REPORT DEVELOPER could speak to pts. sleeping car service attendant who is trying to get pt. [employer]. BUSINESS OBJECTS REPORT DEVELOPER met with pt. who stated, "I've been here 3 months and I want to leave" . Pt. began crying BUSINESS OBJECTS REPORT DEVELOPER assured him the CM were working a placement for him. BUSINESS OBJECTS REPORT DEVELOPER will look into the sleeping car service attendant and remain available.
--- NOTE | 2019-03-06 15:50 | NUR ---
O2 SAT=90%, BACK TO O2 Patient resting in the bed. No acute distress. VS checked. Noted O2 sat=90%. Respiration even and unlabored. Place back to O2 2L/min via oximizer. Safety measure maintained. Call light within reached. Bed locked in low position, side rails up, bed alarm on. Continue to monitor.
[2019-03-06 16:09] VITALS: BP_SYST 137
--- NOTE | 2019-03-06 16:54 | NUR ---
SEEN AND EXAMINED BY DR. KEARNS [facility]. Dr. Kearns talked and answered question from the patient at bedside. Per Dr. Kearns will talk to patient's father, phone number provided.
--- NOTE | 2019-03-06 18:22 | NUR ---
CLOSING NOTE Patient resting in the bed. No acute distress. On O2 2L/min via oximizer. On s/p trach removal, trach stoma covered with non-woven drain sponge. No bleeding noted. Skin warm and dry to touch. Midline intact to MARISELA, no redness, no swelling, no drainage, covered with clean and dry transparent dressing. On NS at 50ml/hr, infusing well. Safety measure maintained. Call light within reached. Bed locked in low position, side rails up, bed alarm on. Sitter at bedside. Will endorse to night nurse.
--- NOTE | 2019-03-06 19:35 | NUR ---
ROUNDS PATIENT RESTING COMFORTABLY IN BED, VITALS STABLE, DENIES ANY PAIN AND DISCOMFORT AT THIS TIME. ASSESSMENT DONE AND DOCUMENTED. NEEDS ATTENDED TO. SAFETY AND FALL PRECAUTION MEASURES IN PLACED. BED IN LOW AND LOCKED POSITION. SITTER AT THE BEDSIDE. CALL LIGHT PLACED WITHIN REACH.
[2019-03-06 20:00] VITALS: BP_SYST 128
[2019-03-06] MEDS: QUEtiapine FUMARATE 100 MG TABLET PO SCH (20:41)
--- NOTE | 2019-03-06 21:13 | NUR ---
MEDICATIONS DUE MEDICATIONS GIVEN SCHEDULED, TOLERATED WELL. WILL CONTINUE TO MONITOR.
--- NOTE | 2019-03-07 00:13 | NUR ---
PATIENT RESTING: Patient resting quietly. No acute distress noted. Vital signs within normal range.
[2019-03-07 00:16] VITALS: BP_SYST 128
--- NOTE | 2019-03-07 02:15 | NUR ---
ROUNDS PATIENT ASLEEP, RESPIRATIONS EVEN AND UNLABORED, WILL CONTINUE TO MONITOR.
--- NOTE | 2019-03-07 04:15 | NUR ---
ROUNDS PATIENT ASLEEP, VITALS STABLE, NO SOB NOR PAIN AND DISCOMFORT NOTED. WILL CONTINUE TO MONITOR.
--- NOTE | 2019-03-07 06:50 | NUR ---
CLOSING NOTES PATIENT AWAKE, VITALS STABLE, NO COMPLAINTS AT THIS TIME. ALL NEEDS ATTENDED TO. SAFETY AND FALL MEASURES MAINTAINED. SITTER AT THE BEDSIDE. WILL ENDORSE TO INCOMING SHIFT NURSE.
--- NOTE | 2019-03-07 07:30 | NUR ---
Opening note patient resting in bed at this time, A/Ox3, no complaints of pain. No SOB. PICC line patent, intact, and infusing fluids as ordered. No adverse side effects. Sitter at bedside. Patient on safety and aspiration precautions, HOB kept elevated, 3 side rails up, call light within reach. bed alarm on. Patient in stable condition. Will continue to monitor.
[2019-03-07 08:02] VITALS: BP_SYST 130
[2019-03-07] MEDS: NACL 0.9% 1,000 ML IV SCH (08:15)
[2019-03-07] MEDS: QUEtiapine FUMARATE 100 MG TABLET GT SCH ×3 (08:16→17:10)
[2019-03-07] MEDS: PANTOPRAZOLE SODIUM 40 MG/VIAL (PROTONIX) IVP SCH ×2 (08:16→22:11)
[2019-03-07] MEDS: VITAMIN B COMPLEX 1 CAP/TAB NG SCH (08:16)
[2019-03-07] MEDS: CARVEDILOL 6.25 MG TABLET (COREG) GT SCH ×2 (08:18→22:12)
[2019-03-07] MEDS: CHOLECALCIFEROL (VITAMIN D3) 2,000 UNIT TABLET NG SCH (08:18)
[2019-03-07] MEDS: DIPHENHYDRAMINE HCL 50 MG CAPSULE PO SCH ×3 (08:18→22:13)
[2019-03-07] MEDS: MULTIVITS,CA,MINERALS/IRON/FA 1 TABLET NG SCH (08:18)
--- NOTE | 2019-03-07 08:30 | NUR ---
medications All morning medications given as ordered. No adverse side effects noted. No nausea, no vomiting noted.
--- NOTE | 2019-03-07 10:14 | NUR ---
Automatic Oven Operator Note Attempted to phone the number of patient's workman's comp deputy attorney general, , as provided by patient's father. the number does not work. Left a voicemail for patient's father to call to verify the number or provide the deputy attorney general with the number for Medical Records. Notified Noemy in Medical Records that this request may come in and patient is AO to sign releases. Addendum: 03/07/19 at 1204 by Aniya Narayanan LCSW The correct number for the deputy attorney general is [phone]. Informed patient's father to provide the deputy attorney general with the contact number for Medical Records as [facility] did not wish to disclose patient name or information to the deputy attorney general. Addendum: 03/07/19 at 1518 by Aniya Narayanan LCSW Spoke with patient's father, Dutch Seymour [phone], about the assisted plans for patient. He stated patient cannot live in his home as they do not get along. He stated that patient's , Shannen [phone], should be contacted as she is the primary decision maker. Attempted to phone Shannen to discuss the deputy attorney general issue and terminal make up operator plans but there was no answer and no voicemail. Will continue to follow up.
--- NOTE | 2019-03-07 10:30 | NUR ---
Physical therapy Patient walked with therapist in the hallway using a front wheeled walker. No complaints of pain. no dizziness
--- NOTE | 2019-03-07 12:10 | NUR ---
Discharge Planning: DCP faxed to [facility] (f [phone] ) DCP to follow up. Addendum: 03/07/19 at 1544 by Linda Coon DP [facility] (f [phone] ) declined pt. DCP faxed to Alexa Muñoz p [phone]) Addendum: 03/07/19 at 1547 by Linda Coon DP Alexa Muñoz ( [phone] p [phone]) Declined not contracted. CM aware.
--- NOTE | 2019-03-07 12:14 | NUR ---
Lunch Patient sitting up in bed at this time, eating lunch, tolerating well. No nausea, no vomiting. No complaints of abdominal pain.
[2019-03-07 12:30] VITALS: BP_SYST 125
--- NOTE | 2019-03-07 13:51 | NUR ---
Rounds patient resting in bed at this time, no complaints of pain. No SOB. Picc line patent, intact, and infusing fluids as ordered. no adverse side effects.
--- NOTE | 2019-03-07 15:52 | NUR ---
Rounds patient resting in bed at this time, calm and cooperative. No complaints of pain. No SOB. offered to assist patient to the restroom, patient declined need. No other needs at this time.
[2019-03-07 16:16] VITALS: BP_SYST 117
--- NOTE | 2019-03-07 16:49 | NUR ---
PICC line dressing PICC line dressing changed. tolerated well. PICC line patent, and intact. No bleeding. Patient in stable condition.
--- NOTE | 2019-03-07 18:09 | NUR ---
Closing note patient resting in bed at this time, A/Ox3, no complaints of pain. No SOB. PICC line patent, intact, and infusing fluids as ordered. No adverse side effects. Patient on safety and aspiration precautions, HOB kept elevated, 3 side rails up, call light within reach. bed alarm on. Patient close to nursing station. Patient in stable condition. All needs met.
--- NOTE | 2019-03-07 19:30 | NUR ---
Opening notes Received report. Patient is resting comfortably in bed. No signs of distress noted. Breathing even and unlabored on RA. Trach was removed 03/06/19 and covered with gauze dressing and tape. Dressing is clean, dry and intact. Midline is patent and intact, infusing fluids. G-tube noted, not in use. Provided patient with warm blanket per patient request. No other needs. Discussed with patient plan of care, patient verbalized understanding. Call light with the patient. Safety precautions in place.
[2019-03-07 20:00] VITALS: BP_SYST 122
[2019-03-07] MEDS: QUEtiapine FUMARATE 100 MG TABLET PO SCH (22:11)
--- NOTE | 2019-03-07 22:33 | NUR ---
Medications given. Educated the action and side effects of medications. Patient verbalized understanding and tolerated well. No signs of distress noted. Breathing even and unlabored. IVF infusing well. Patient forgetful and needs reorienting. No needs. Call light with the patient. Safety precautions in place.
--- NOTE | 2019-03-08 00:32 | NUR ---
Resting Patient in and out of sleep. Patient voided 500 ml into urinal. No other needs. Call light with the patient. Safety precautions in place.
[2019-03-08 01:01] VITALS: BP_SYST 142
--- NOTE | 2019-03-08 02:10 | NUR ---
Midline removed Midline was removed when patient got up without calling. No active bleeding noted. Catheter tip intact and measures 15 cm, as noted in chart. New IV was inserted into the right forearm 22 gauge. Good blood noted and flushes easily. Resumed on current IVF. Provided patient with warm blankets. No other needs. Call light with the patient. Safety precautions in place.
--- NOTE | 2019-03-08 04:54 | NUR ---
Sleeping Patient in and out of sleep. Patient talking in his sleep. No signs of distress noted. Breathing even and unlabored on room air. IVF infusing well. Call light with the patient. Safety precautions in place.
[2019-03-08] MEDS: NACL 0.9% 1,000 ML IV SCH ×2 (06:10→23:56)
--- NOTE | 2019-03-08 06:49 | NUR ---
Closing notes Patient resting in bed. No signs of distress noted. Breathing even and unlabored, on room air. No complaints of pain. Dressing to trach site clean, dry and intact. IV patent and intact, infusing fluids. Patient anxious to go home, updated patient on plan of care. Patient feels better. Patient is forgetful at times. All needs met throughout the shift. Call light with the patient. Safety precautions in place. Will endorse care to day shift RN.
[2019-03-08 07:12] LABS: BASOPHILS # (AUTO) 0.1 K/uL (0.0-0.2); BASOPHILS % (AUTO) 1.8 % (0.0-2.0); EOSINOPHILS # (AUTO) 0.5 K/uL (0.0-0.4); EOSINOPHILS % (AUTO) 6.5 % (0.0-4.0); HEMATOCRIT 25.2 % (36-54); HEMOGLOBIN 8.5 g/dL (14.0-18.0); LYMPHOCYTES # (AUTO) 1.1 K/uL (1.0-5.5); LYMPHOCYTES % (AUTO) 14.5 % (20.5-51.5); MEAN CORPUSCULAR HEMOGLOBIN 29 pg (27-31); MEAN CORPUSCULAR HGB CONC 34 % (32-36); MEAN CORPUSCULAR VOLUME 84 fL (79.0-98.0); MONOCYTES # (AUTO) 0.8 K/uL (0.0-1.0); MONOCYTES % (AUTO) 11.4 % (1.7-9.3); NEUTROPHILS # (AUTO) 4.9 K/uL (1.8-7.7); NEUTROPHILS % (AUTO) 65.8 % (40.0-70.0); PLATELET COUNT (AUTO) 294 K/uL (130-430); RED CELL DISTRIBUTION WIDTH 20.3 % (9.0-15.0); WHITE BLOOD COUNT (AUTO) 7.4 K/uL (4.8-10.8)
[2019-03-08 07:38] LABS: CREATININE 1.58 mg/dL (0.55-1.30); POTASSIUM 3.5 mmol/L (3.5-5.1)
--- NOTE | 2019-03-08 07:50 | NUR ---
PT IS AWAKE, ALERT AND ORIENTED X3, FORGETFUL ,NO SOB, PT WANTED TO G [place] TODAY, EXPLAINED TO PT THE WE ARE WAITING FOR THE MDS TO CLEAR THE PT. DRESSING ON NECK DRY AND INTACT, PREVIOUS TRACH SITE IS SLIGHTLY RED BUT NO DRAINAGE, PT DENIES ANY PAIN, GT TUBE CLAMPED, BOWEL SOUNDS PRESENT, IV FLUID INFUSING ON R ARM , INTACT AND PATENT, REVIEWED PLAN OF CARE
[2019-03-08 08:01] VITALS: BP_SYST 123
[2019-03-08 08:08] LABS: CALCIUM 9.5 mg/dL (8.4-11.0)
[2019-03-08] MEDS: CHOLECALCIFEROL (VITAMIN D3) 2,000 UNIT TABLET NG SCH (08:47)
[2019-03-08] MEDS: PANTOPRAZOLE SODIUM 40 MG/VIAL (PROTONIX) IVP SCH ×3 (08:47→21:00)
[2019-03-08] MEDS: CARVEDILOL 6.25 MG TABLET (COREG) GT SCH ×2 (08:48→20:49)
[2019-03-08] MEDS: QUEtiapine FUMARATE 100 MG TABLET GT SCH ×3 (08:49→17:14)
[2019-03-08] MEDS: DIPHENHYDRAMINE HCL 50 MG CAPSULE PO SCH ×2 (08:50→20:45)
[2019-03-08] MEDS: DIGOXIN 0.125 MG TABLET PO SCH (08:51)
[2019-03-08] MEDS: MULTIVITS,CA,MINERALS/IRON/FA 1 TABLET NG SCH (08:51)
[2019-03-08] MEDS: VITAMIN B COMPLEX 1 CAP/TAB NG SCH (09:01)
--- NOTE | 2019-03-08 10:15 | NUR ---
PHYSICAL THERAPIST UP WITH PT, PT AMBULATED ON THE HALLWAY.
--- NOTE | 2019-03-08 10:27 | NUR ---
PAGED PAGED CAROLINE LEMA AT [phone] SPOKE WITH EMERALD.
[2019-03-08 11:23] VITALS: BP_SYST 130
--- NOTE | 2019-03-08 11:50 | NUR ---
PT IS RESTING COMFORTABLY, DENIES ANY PAIN, VSS, AFEBRILE, CALL LIGHT WITHIN REACH
--- NOTE | 2019-03-08 12:21 | NUR ---
DR EDWARD CALLED BACK LOOKING FOR DR WALLACE, INFORMED MD THAT DR WALLACE CALLED RE REMOVAL OF G-TUBE THEY ARE PLANNING TO DC PT TO SNF OR HOME.
--- NOTE | 2019-03-08 13:35 | NUR ---
PT PULLED IV OUT AND PT STATED HE DID NOT TAKE IT OUT. PT BECAME AGITATED. DR KEARNS IS HERE AND MADE AWARE THAT PT DOES NOT HAVE IV. STATED IT IS OK TO HAVE NO IV ACCESS
--- NOTE | 2019-03-08 16:16 | NUR ---
Computer Security Coordinator: explore [facility] program called [facility] to see if pt.meets criteria. COMMERCIAL SHEET METAL FOREMAN spoke to Rosemarie Cotter from [facility], [facility] program. She stated if COMMERCIAL SHEET METAL FOREMAN feels pt is a candidate to contact Kahlil Alejandro in the service area, Fax, and email, [email or web address]. COMMERCIAL SHEET METAL FOREMAN spoke to Dr. Gillespie who stated pt. would be able to go down to 800mg. of Seroquel and that he would be at a SNF for about 2 weeks. COMMERCIAL SHEET METAL FOREMAN will plan contact Mr. Allen to see if pt can be referred to [facility].
--- NOTE | 2019-03-08 17:05 | NUR ---
PT JUST WOKE UP AND WANTED TO GO HOME, PT IS STABLE, UPDATED PT WITH STATUS OF TRANSFER
--- NOTE | 2019-03-08 19:35 | NUR ---
ROUNDS PATIENT IN BED, AWAKE, WATCHING TV, VITALS STABLE, NO PAIN AT THIS TIME. ASSESSMENT DONE AND DOCUMENTED. SEE FLOWSHEET. NEEDS ATTENDED TO. SAFETY MEASURES IN PLACED. WILL CONTINUE TO MONITOR.
[2019-03-08] MEDS: QUEtiapine FUMARATE 100 MG TABLET PO SCH (20:45)
--- NOTE | 2019-03-08 21:10 | NUR ---
MEDICATION DUE MEDICATIONS GIVEN SCHEDULED, TOLERATED WELL. WILL CONTINUE TO MONITOR.
--- NOTE | 2019-03-09 00:12 | NUR ---
PATIENT RESTING: Patient resting quietly. No acute distress noted. Vital signs within normal range.
--- NOTE | 2019-03-09 04:13 | NUR ---
PATIENT RESTING: Patient resting quietly. No acute distress noted. Vital signs within normal range.
[2019-03-09 05:24] VITALS: BP_SYST 140
--- NOTE | 2019-03-09 06:50 | NUR ---
CLOSING NOTES PATIENT ASLEEP AT THIS TIME, VITALS STABLE, NO PAIN NOTED AT THIS TIME. ALL NEEDS ATTENDED TO. SAFETY MEASURES MAINTAINED. WILL ENDORSE TO INCOMING SHIFT NURSE.
[2019-03-09 07:00] VITALS: BP_SYST 135
--- NOTE | 2019-03-09 07:25 | NUR ---
AM ROUNDS: ON SIDE LYING,SLEEPING DURING ROUNDS. NO ACUTE DISTRESS. CALL LIGHT WITH IN REACH. BED LOCKED AT LOWEST POSITION.BED ALARM ON.
[2019-03-09] MEDS: PANTOPRAZOLE SODIUM 40 MG/VIAL (PROTONIX) IVP SCH (09:00)
[2019-03-09] MEDS: VITAMIN B COMPLEX 1 CAP/TAB NG SCH (09:13)
[2019-03-09] MEDS: CHOLECALCIFEROL (VITAMIN D3) 2,000 UNIT TABLET NG SCH (09:13)
[2019-03-09] MEDS: QUEtiapine FUMARATE 100 MG TABLET GT SCH ×3 (09:14→17:00)
[2019-03-09] MEDS: MULTIVITS,CA,MINERALS/IRON/FA 1 TABLET NG SCH (09:14)
[2019-03-09] MEDS: DIPHENHYDRAMINE HCL 50 MG CAPSULE PO SCH (09:14)
[2019-03-09] MEDS: CARVEDILOL 6.25 MG TABLET (COREG) GT SCH ×2 (09:15→22:12)
--- NOTE | 2019-03-09 09:51 | NUR ---
RN ROUNDS: RESTING ON THE BED. PULMO AND CARDIO CAME AND SEEN PATIENT AT THE BEDSIDE. UPDATES WERE GIVEN BY Jaxson MURPHY. NO ACUTE DISTRESS.
--- NOTE | 2019-03-09 11:12 | NUR ---
PHYSICAL THERAPY CO-SIGN The Physical Therapy Progress Notes documented by Double Needle Operator have been reviewed. Reviewed/Co-Signed by: Damian Salas Documentation Done by: ELANA EVANS PTA Addendum: 03/09/19 at 1114 by Damian Salas PT Amended: Links added.
--- NOTE | 2019-03-09 11:13 | NUR ---
PHYSICAL THERAPY CO-SIGN The Physical Therapy Progress Notes documented by Percher have been reviewed. Reviewed/Co-Signed by: Damian Salas Documentation Done by: ELANA EVANS PTA Addendum: 03/09/19 at 1114 by Damian Salas PT Amended: Links added.
--- NOTE | 2019-03-09 11:13 | NUR ---
PHYSICAL THERAPY CO-SIGN The Physical Therapy Progress Notes documented by Cloth Desizing Range Operator Chief have been reviewed. Reviewed/Co-Signed by: Damian Salas Documentation Done by: ELANA EVANS PTA Addendum: 03/09/19 at 1114 by Damian Salas PT Amended: Links added.
--- NOTE | 2019-03-09 11:14 | NUR ---
PHYSICAL THERAPY CO-SIGN The Physical Therapy Progress Notes documented by Rayon Coner have been reviewed. Reviewed/Co-Signed by: Damian Salas Documentation Done by: ELANA EVANS PTA Addendum: 03/09/19 at 1114 by Damian Salas PT Amended: Links added.
[2019-03-09 11:48] VITALS: BP_SYST 132
--- NOTE | 2019-03-09 12:04 | NUR ---
RN ROUNDS: SLEEPING THIS TIME. NO ACUTE DISTRESS.
[2019-03-09 13:00] VITALS: BP_SYST 132
--- NOTE | 2019-03-09 14:30 | NUR ---
RN ROUNDS: PATIENT SLEEPING DURING ROUNDS. NO ACUTE DISTRESS.
[2019-03-09 16:02] VITALS: BP_SYST 131
--- NOTE | 2019-03-09 17:52 | NUR ---
RN ROUNDS; PATIENT SLEEPING.SEROQUEL PO NOT GIVEN.
--- NOTE | 2019-03-09 18:18 | NUR ---
CLOSING NOTES: PATIENT STILL SLEEPING AND DOES NOT WANT TO BE DISTURBED. NO ACUTE DISTRESS. CALL LIGHT WITH IN REACH. BED LOCKED AT LOWEST POSITION. BED ALARM ON.
[2019-03-09] MEDS: NACL 0.9% 1,000 ML IV SCH (19:56)
[2019-03-09 20:00] VITALS: BP_SYST 129
--- NOTE | 2019-03-09 20:00 | NUR ---
Initial note: Received report from akira RN. Patient is sleeping in bed. Does not show any acute distress. Even, unlabored breathing on room air. No IV site, MD's are aware. G-tube is clamped, 0 ML gastric residual aspirated. Call light is with patient. Safety and fall precautions in place. Will continue with plan of care.
[2019-03-09] MEDS ORDERED: DIPHENHYDRAMINE HCL 50 MG CAPSULE PO SCH (21:00)
--- NOTE | 2019-03-09 21:43 | NUR ---
Rounds: Patient is awake in bed watching TV. No acute distress. Respirations are even and unlabored on room air. Safety and fall precautions in place. Will continue to monitor.
[2019-03-09] MEDS: QUEtiapine FUMARATE 100 MG TABLET PO SCH (22:09)
[2019-03-10 00:15] VITALS: BP_SYST 142
--- NOTE | 2019-03-10 00:26 | NUR ---
Rounds: Patient woke up from sleep. No acute distress, tolerating room air. Drank half a bottle of Ensure, spilled some on his linens. Refused a linens change. Call light with patient. Safety and fall precautions in place. Will continue to monitor.
--- NOTE | 2019-03-10 03:49 | NUR ---
Rounds: Patient is asleep, no acute distress noted. Even and unlabored breathing on room air. Call light is with patient. Safety, fall precautions in place. Will continue monitoring.
--- NOTE | 2019-03-10 06:19 | NUR ---
Closing note: Patient is resting in bed, no acute distress. Tolerating room air. Still without an IV site, MD's are aware. G-tube site intact, 0 ML residual. Patient is not cooperative with linen change, does not want to be bothered. All needs met. Safety and fall precautions maintained. Hourly rounding performed throughout shift. Will endorse care to dayshift RN.
--- NOTE | 2019-03-10 07:25 | NUR ---
AM ROUNDS: PATIENT AWAKE,SITTING ON THE BED. HAD AN ACCIDENT,PEED ON THE FLOOR,CARE RENDERED. RECEIVED REPORT FROM NIGHT NURSE ORION. G-TUBE CLAMP.STILL WITH NO IV ACCESS,MD'S AWARE. BED LOCKED AT LOWEST POSITION. FALL RISK PRECAUTION RENDERED.
[2019-03-10 08:02] VITALS: BP_SYST 141
--- NOTE | 2019-03-10 08:12 | NUR ---
RN NOTES: PATIENT JUST FINISHED BREAKFAST. RESTING ON THE BED. NOT IN ANY DISTRESS.
[2019-03-10 08:14] LABS: CALCIUM 10.4 mg/dL (8.4-11.0); CREATININE 1.35 mg/dL (0.55-1.30); PHOSPHORUS 5.3 mg/dL (2.7-4.5); POTASSIUM 3.7 mmol/L (3.5-5.1)
[2019-03-10 08:18] LABS: BASOPHILS # (AUTO) 0.1 K/uL (0.0-0.2); BASOPHILS % (AUTO) 1.6 % (0.0-2.0); EOSINOPHILS # (AUTO) 0.5 K/uL (0.0-0.4); EOSINOPHILS % (AUTO) 5.9 % (0.0-4.0); LYMPHOCYTES # (AUTO) 1.6 K/uL (1.0-5.5); LYMPHOCYTES % (AUTO) 18.8 % (20.5-51.5); MEAN CORPUSCULAR HEMOGLOBIN 29 pg (27-31); MEAN CORPUSCULAR HGB CONC 33 % (32-36); MEAN CORPUSCULAR VOLUME 86 fL (79.0-98.0); MONOCYTES # (AUTO) 0.9 K/uL (0.0-1.0); MONOCYTES % (AUTO) 10.8 % (1.7-9.3); NEUTROPHILS # (AUTO) 5.5 K/uL (1.8-7.7); NEUTROPHILS % (AUTO) 62.9 % (40.0-70.0); PLATELET COUNT (AUTO) 398 K/uL (130-430); RED BLOOD CELL COUNT(AUTO) 3.48 MIL/uL (4.2-6.2); RED CELL DISTRIBUTION WIDTH 20.3 % (9.0-15.0); WHITE BLOOD COUNT (AUTO) 8.7 K/uL (4.8-10.8)
[2019-03-10] MEDS: CARVEDILOL 6.25 MG TABLET (COREG) GT SCH ×2 (08:27→20:06)
[2019-03-10] MEDS: QUEtiapine FUMARATE 100 MG TABLET GT SCH ×3 (08:28→16:14)
[2019-03-10] MEDS: MULTIVITS,CA,MINERALS/IRON/FA 1 TABLET NG SCH (08:28)
[2019-03-10] MEDS: CHOLECALCIFEROL (VITAMIN D3) 2,000 UNIT TABLET NG SCH (08:28)
[2019-03-10] MEDS: VITAMIN B COMPLEX 1 CAP/TAB NG SCH (08:28)
[2019-03-10] MEDS: PANTOPRAZOLE SODIUM 40 MG TAB PO SCH (08:29)
[2019-03-10] MEDS: DIPHENHYDRAMINE HCL 25 MG CAPSULE PO SCH ×2 (08:31→20:06)
--- NOTE | 2019-03-10 10:30 | NUR ---
RN NOTES: PATIENT SLEEPING. NOT IN ANY DISTRESS.
--- NOTE | 2019-03-10 12:30 | NUR ---
ASLEEP: SLEEPING DURING ROUNDS.PATIENT DOES NOT WANT TO BE WOKEN UP. STABLE.
--- NOTE | 2019-03-10 14:24 | NUR ---
RN NOTES: PATIENT JUST WOKE UP AND ATE HIS LUNCH. NO OTHER PROBLEM NOTED.
--- NOTE | 2019-03-10 16:10 | NUR ---
RN NOTES: PATIENT WATCHING TV. STABLE.
[2019-03-10 16:35] VITALS: BP_SYST 131
--- NOTE | 2019-03-10 18:08 | NUR ---
Nutrition F/U (short-note d/t lack of time) RD reviewed pt's current EMR including diet Hx, physician notes, nursing notes, pertinent labs/meds/procedures, care trends, and care activity. RD met w/ pt at bedside earlier today w/ RN present in room. Pt ate very well at breakfast per RN report. Pt requested lunch to be re-heated as pt was sleeping during lunch -- RD microwaved food for pt; pt appreciative. RD encouraged pt to continue to drink Ensure Enlive TID and take Ok BID; pt acknowledged. Pt reported BM x1 today, no complaints of N/V/C/D. Current diet remains appropriate. F/U moderate risk within 3-5 days.
--- NOTE | 2019-03-10 18:28 | NUR ---
CLOSING NOTES: PATIENT DOES NOT LIKE ROAST TURKEY,INSTEAD REQUESTED FOR CEREALS AND FAT FREE MILK,CALLED DIETARY AND SEND THEM TO THE PATIENT. NO PROBLEM. BED LOCKED AT LOWEST POSITION. SAFETY PRECAUTION RENDERED. PRACTICE GUIDELINES MET THOUGH OUT THE SHIFT.
--- NOTE | 2019-03-10 19:44 | NUR ---
Initial note: Received report from akira RN. Patient is awake in bed watching TV. No acute distress. Alert and oriented to name, place, and situation, becomes irritated easily. Tolerating room air, even and unlabored breathing. No IV site present, doctors are aware. Call light is with patient, patient was instructed regarding call light use, verbalized understanding. Bed is locked in lowest position, side rails raised, bed alarm off per patient request despite education, room is close to nurses' station. Will closely monitor and continue with plan of care. Addendum: 03/10/19 at 2049 by Horace Feliz RN G-tube present, intact and clamped. No skin breakdown noted.
[2019-03-10] MEDS: QUEtiapine FUMARATE 100 MG TABLET PO SCH (20:04)
[2019-03-10 20:25] VITALS: BP_SYST 135
--- NOTE | 2019-03-10 21:29 | NUR ---
Rounds: Patient is watching TV. No acute distress. Even and unlabored breathing on room air. Call light is with patient. Safety and fall precautions in place. Will continue monitoring.
--- NOTE | 2019-03-11 00:17 | NUR ---
Rounds: Patient is asleep, no acute distress noted. Even and unlabored breathing on room air. Call light is with patient. Safety and fall precautions in place. Will continue monitoring.
[2019-03-11 00:57] VITALS: BP_SYST 126
--- NOTE | 2019-03-11 03:45 | NUR ---
Rounds: Patient woke up and used the urinal. Produced 350 ML clear, yellow urine. No acute distress. Tolerating room air. Call light is with patient. Will continue to monitor.
--- NOTE | 2019-03-11 07:45 | NUR ---
OPENING NOTE PATIENT AWAKE IN BED. DENIES GIOVANI PAIN. ROOM AIR. NO ACUTE DISTRESS. NO SOB. RESPIRATION EVEN AND UNLABORED. SKIN WARM AND DRY TO TOUCH. NO IV SITE, PATIENT REFUSED; MD AWARE. DISCUSSED PLAN OF CARE; PT VERBALIZED UNDERSTANDING. BED IN LOW AND LOCKED POSITION. SIDERAIL UPX3. PATIENT REFUSE BED ALARM; RISKS EXPLAINED. ROOM NEAR NURSES STATION. ALL NEEDS MET. CONT TO MONITOR. CALL LIGHT IN REACH.
[2019-03-11 08:00] VITALS: BP_SYST 129
[2019-03-11] MEDS: MULTIVITS,CA,MINERALS/IRON/FA 1 TABLET NG SCH (08:51)
[2019-03-11] MEDS: CARVEDILOL 6.25 MG TABLET (COREG) GT SCH ×2 (08:51→21:45)
[2019-03-11] MEDS: DIGOXIN 0.125 MG TABLET PO SCH (08:52)
[2019-03-11] MEDS: QUEtiapine FUMARATE 100 MG TABLET GT SCH ×2 (08:52→12:09)
[2019-03-11] MEDS: PANTOPRAZOLE SODIUM 40 MG TAB PO SCH (08:52)
[2019-03-11] MEDS: CHOLECALCIFEROL (VITAMIN D3) 2,000 UNIT TABLET NG SCH (08:52)
[2019-03-11] MEDS: VITAMIN B COMPLEX 1 CAP/TAB NG SCH (08:52)
[2019-03-11] MEDS: DIPHENHYDRAMINE HCL 25 MG CAPSULE PO SCH ×2 (08:52→21:44)
--- NOTE | 2019-03-11 09:01 | NUR ---
MEDS ALL DUE MEDS ADMINISTERED ORDERED, ARINA WELL. TEACHING DONE ON MEDICATION AND ASE. ALL NEEDS MET. CALL LIGHT IN REACH .CONT TO MONITOR
--- NOTE | 2019-03-11 10:30 | NUR ---
Discharge Planning: DCP faxed pt referral to: [facility] (f [phone] p [phone]) [facility] (f [phone] p [phone]) [facility] (f [phone] p [phone]) [facility] (f [phone] p [phone]) [facility] (f [phone] ) [facility] ([phone] ) [facility] (f [phone] p [phone]) DCP to follow up. Addendum: 03/11/19 at 1401 by Linda Coon DP [facility] (f [phone] p [phone]) DCP spoke to Arely [facility] (f [phone] p [phone]) DCP spoke to Omkar omer will review packet Addendum: 03/11/19 at 1439 by Linda Coon DP [facility] (f [phone] ) per Krissy licona [facility] (f [phone] p [phone])Per Aishwarya Declined per age and past drug use. [facility] (f [phone] p [phone]) Per Krissy [facility] ([phone] ) DCP lm for Mrs Brewer in admission [facility] (f [phone] p [phone]) no answer in admissions Addendum: 03/11/19 at 1531 by Linda Coon DP [facility] (f [phone] ) Per Krissy declined [facility] (f [phone] p [phone]) DCP lm for Sandi
--- NOTE | 2019-03-11 12:13 | NUR ---
SEEN AND EXAMINED BY AT BEDSIDE
[2019-03-11 12:16] VITALS: BP_SYST 124
--- NOTE | 2019-03-11 15:00 | NUR ---
NOTE PATIENT RESTING IN BED. STABLE. NOTED RISE/FALL CHEST. NO ACUTE DISTRESS. ROOM NEAR NURSES STATION. CALL LIGHT IN REACH. CONT TO MONITOR
--- NOTE | 2019-03-11 15:10 | NUR ---
Industrial Maintenance Tech: Pt. asked to speak to CHECKING CLERK. CHECKING CLERK met with pt. who stated he wants to leave the hospital. CHECKING CLERK asked if his pts. family would take him in. Pt. stated no they would not. CHECKING CLERK explained to pt. that the has put in for pt. to go to a SNF. CHECKING CLERK explained what that was and that it was a temporary placement. CHECKING CLERK continued to share with pt. that she is trying get a hold of [facility] to see if he can qualify for a prg. called [facility]. Criteria is that pt. is homeless and has a mental health Dx. At one time pt. also had to have mental health hospitalizations. It appears client may meet all criteria and has been trying to get a hold of the service area rep. Mr. Kahlil Galvan at [phone]. Addendum: 03/11/19 at 1604 by Erica Elias MSW Industrial Maintenance Tech: follow up re. Pt. placement and Mental Health Status CHECKING CLERK spoke to Mr Galvan from [facility] who had a lot of questions re pts. mental health status. As CHECKING CLERK shared MH Hx on pt., CHECKING CLERK was at a loss for a MH Dx. such as depression, anxiety, bi-polar and that would be reason for being mentally ill. 5150 holds state pt. was gravely disabled, combative, danger to self, danger to others. 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 CHECKING CLERK will ask pt., pts. family re. back hx of any mental health Dx. This pt may be going to a snf and then have the only other option of a in-pt rehab or back to being homeless. CHECKING CLERK will update chart with more info. and share with [facility], Mr. Allen.
[2019-03-11 16:07] VITALS: BP_SYST 120
--- NOTE | 2019-03-11 19:00 | NUR ---
CLOSING NOTE PATIENT STABLE. RESTING IN BED. DENIES PAIN. NO ACUTE DISTRESS. SKIN WARM AND DRY TO TOUCH. ALL NEEDS MET. BED IN LOW AND LOCKED POSITION. SIDERAIL UPX3. ROOM NEAR NURSES STATION. AWAITING FOR SNF PLACEMENT. CALL LIGHT IN REACH. CONT TO MONITOR.
--- NOTE | 2019-03-11 19:40 | NUR ---
Initial note Received lying in bed awake, alert & oriented to name & place. No apparent distress noted. No c/o pain or discomfort. No IV access, MD aware. Respirations even & unlabored. Call light within reach. Instructed on use of call light & to notify staff if in need of assistance. Verbalized understanding. Bed in low, locked position. Refused to turn on bed alarm. Instructed on risks and benefits of bed alarm. Verbalized understanding.
[2019-03-11 20:00] VITALS: BP_SYST 134
--- NOTE | 2019-03-11 21:55 | NUR ---
Due PO medications given as ordered. Tolerated well.
[2019-03-12] VITALS (7 sets, daily range): BP systolic 126–145
--- NOTE | 2019-03-12 00:37 | NUR ---
Called RN stated "my g-tube stinks." No s/s of infection around g-tube insertion site. Cleaned area with soap and water and patted dry. 4x4 gauze placed over g-tube site and secured with paper tape. Tolerated well.
--- NOTE | 2019-03-12 07:25 | NUR ---
Initial notes: Patient awake, alert and oriented x2. Stable. I.V. access patent Gtube in placed and clamp. Discussed plan of care. Call light within reach. Safety measures in placed. Addendum: 03/12/19 at 0810 by Sherry Blount RN No i.v. access. aware.
--- NOTE | 2019-03-12 08:30 | NUR ---
rounds: Patient had a shower. Cooperative and no behavior observed.
[2019-03-12] MEDS ORDERED: QUEtiapine FUMARATE 100 MG TABLET PO SCH ×2 (09:00→22:30)
[2019-03-12] MEDS: MULTIVITS,CA,MINERALS/IRON/FA 1 TABLET NG SCH (09:12)
[2019-03-12] MEDS: CHOLECALCIFEROL (VITAMIN D3) 2,000 UNIT TABLET NG SCH (09:12)
[2019-03-12] MEDS: VITAMIN B COMPLEX 1 CAP/TAB NG SCH (09:12)
[2019-03-12] MEDS: PANTOPRAZOLE SODIUM 40 MG TAB PO SCH (09:13)
[2019-03-12] MEDS: DIPHENHYDRAMINE HCL 25 MG CAPSULE PO SCH ×2 (09:13→20:47)
[2019-03-12] MEDS: CARVEDILOL 6.25 MG TABLET (COREG) GT SCH ×2 (09:14→20:47)
--- NOTE | 2019-03-12 11:27 | NUR ---
Social Service Note: INTERMODAL OWNER OPERATOR TRUCK DRIVER received message from Kahlil from [facility] ([phone]). INTERMODAL OWNER OPERATOR TRUCK DRIVER spoke with Kahlil who states that he did find information on the pt and reports that the pt has a lengthy history over the past 5 years in and out of [facility] due to drug/alcohol use. Kahlil states that he is not sure if pt has a mental health history that is not drug/alcohol induced. DENNIS will review pt's record and update Kahlil as needed. Kahlil provided his email address for further communication as needed. ([email or web address]).
--- NOTE | 2019-03-12 13:23 | NUR ---
rounds: patient resting. no distress noted.
--- NOTE | 2019-03-12 15:08 | NUR ---
rounds: Patient resting on bed. no distress noted.
--- NOTE | 2019-03-12 18:29 | NUR ---
Closing notes: Patient finishing dinner. Stable. Needs attended. Gtube in placed and clamp. Call light within reach. Safety measures in placed. Report will be given to night auditor.
--- NOTE | 2019-03-12 21:05 | NUR ---
DR KEARNS PAGED THE PATIENT IS ASKING FOR A SLEEPING MEDICATION AND ASKED ABOUT THE SEROQUEL THAT WAS CHANGE DOSE BY DR WALLACE. HE WILL GAIL;K TO DR WALLACE IN AM CARDIOLOGY CONSULT AND ASKED WHY HE CHANGE THE SEROQUEL DOSE THAT WAS ORDERED BY THE PSYCHIATRIST 100 MG TID AND ORDERED SEROQUEL 300 MG ONE TIME DOSEAND ORDERED
[2019-03-12] MEDS ORDERED: QUEtiapine FUMARATE 200 MG TAB.SR.24H PO SCH (21:30)
--- NOTE | 2019-03-12 22:32 | NUR ---
PHARMACY CALLED AND VERIFIED THE ORDER FOR SEROQUEL AND INFORMED IT IS THE ORDER OF DR KEARNS AND VERIFIED AND READBACK ORDER.
--- NOTE | 2019-03-13 00:31 | NUR ---
PATIENT IS ASLEEP AND NOTED THE HEAR RATE GOES DOWN TO 49/MIN. AWAKEN AND HEART BACK TO 60 AND 70. PLACED ON O2 AT 2L/MIN SATURATION IS LOW WITHOUT OXYGEN.WILL INFORM THE PHYSICIAN IN AM
[2019-03-13 00:37] VITALS: BP_SYST 138
--- NOTE | 2019-03-13 06:05 | NUR ---
patient asleep.refused vitall signs and weighing. prefers to sleep
[2019-03-13 06:14] LABS: BASOPHILS # (AUTO) 0.1 K/uL (0.0-0.2); EOSINOPHILS # (AUTO) 0.5 K/uL (0.0-0.4); EOSINOPHILS % (AUTO) 4.6 % (0.0-4.0); HEMATOCRIT 25.4 % (36-54); HEMOGLOBIN 8.5 g/dL (14.0-18.0); LYMPHOCYTES # (AUTO) 1.6 K/uL (1.0-5.5); LYMPHOCYTES % (AUTO) 16.8 % (20.5-51.5); MEAN CORPUSCULAR HEMOGLOBIN 29 pg (27-31); MEAN CORPUSCULAR HGB CONC 33 % (32-36); MEAN CORPUSCULAR VOLUME 86 fL (79.0-98.0); MONOCYTES # (AUTO) 1.2 K/uL (0.0-1.0); MONOCYTES % (AUTO) 12.2 % (1.7-9.3); NEUTROPHILS # (AUTO) 6.4 K/uL (1.8-7.7); NEUTROPHILS % (AUTO) 65.4 % (40.0-70.0); PLATELET COUNT (AUTO) 352 K/uL (130-430); RED BLOOD CELL COUNT(AUTO) 2.96 MIL/uL (4.2-6.2); RED CELL DISTRIBUTION WIDTH 21.4 % (9.0-15.0); WHITE BLOOD COUNT (AUTO) 9.8 K/uL (4.8-10.8)
[2019-03-13 06:16] LABS: ALBUMIN 2.7 g/dL (3.4-4.8); CALCIUM 8.9 mg/dL (8.4-11.0)
[2019-03-13 06:33] LABS: CREATININE 1.13 mg/dL (0.55-1.30); DIGOXIN 0.3 ng/mL (0.80-2.00); POTASSIUM 3.7 mmol/L (3.5-5.1); TOTAL BILIRUBIN 0.7 mg/dL (0.0-1.0)
--- NOTE | 2019-03-13 07:14 | NUR ---
PAGED PAGED MADDI NOVAK AT [phone] SPOKE WITH KATI.
--- NOTE | 2019-03-13 07:14 | NUR ---
DR KEARNS PAGED TO INFORM THAT THE HR GOES TO 34/MIN IF THE PATIENT IS IN DEEP SLEEP AND LOW SATURATION .PLACED ON 02 AT 2L MIN.REPORT GIVEN TO THE DAY SHIFT RN TO FOLLOW UP WITH THE CALL TO DR KEARNS TO INFORM ABOUT THE HR AND LOW SATURATION.
--- NOTE | 2019-03-13 07:18 | NUR ---
NEEDS TO INFORMTHE HEEL BURNISHER, REPORT RELAYED TO EBENEZER Green RN Addendum: 03/13/19 at 0724 by Thirty Three pear picker PATIENT IS ON CPAP AT NIGHT DUE TO SLEEP APNEA AND WILL REALY TO THE DAY SHIFT MIRIAM.
[2019-03-13 08:00] VITALS: BP_SYST 140
--- NOTE | 2019-03-13 08:00 | NUR ---
Opening notes, Patient is resting comfortably in bed. Refused to have vitals checked but then later agreed. No signs of distress noted. Breathing even and unlabored. No IV access No other needs at this time. Call light with the patient. Safety precautions in place.
[2019-03-13] MEDS: PANTOPRAZOLE SODIUM 40 MG TAB PO SCH (09:23)
[2019-03-13] MEDS: CHOLECALCIFEROL (VITAMIN D3) 2,000 UNIT TABLET NG SCH (09:23)
[2019-03-13] MEDS: DIPHENHYDRAMINE HCL 25 MG CAPSULE PO SCH ×2 (09:23→22:29)
[2019-03-13] MEDS: MULTIVITS,CA,MINERALS/IRON/FA 1 TABLET NG SCH (09:23)
[2019-03-13] MEDS: DIGOXIN 0.125 MG TABLET PO SCH (09:25)
[2019-03-13] MEDS: CARVEDILOL 6.25 MG TABLET (COREG) GT SCH ×2 (09:26→22:29)
[2019-03-13] MEDS: QUEtiapine FUMARATE 100 MG TABLET PO SCH ×3 (09:32→17:45)
[2019-03-13] MEDS: VITAMIN B COMPLEX 1 CAP/TAB NG SCH (09:33)
--- NOTE | 2019-03-13 09:37 | NUR ---
DR DHALIWAL WS HERE AND SEEN PT, MD MCCALL AWARE THAT DR KEARNS ORDER CPAP, ASKED MD WHAT SETTINGS PT NEEDS TO BE.
--- NOTE | 2019-03-13 09:59 | NUR ---
PT IN BED, EYES CLOSED, APPEARS SLEEPING, BREATHING EVEN AND UNLABORED. WILL CONT TO MONITOR.
--- NOTE | 2019-03-13 11:56 | NUR ---
Software Project Engineer: follow up re. pt. placement and mental health for [facility] ([employer] [facility]). IT SALES CONSULTANT called pts. estranged ( for years) Shannen, to discuss Pts. mental health. To her knowledge she stated pt has never had a mental health Dx. IT SALES CONSULTANT share info with her stating pt. is getting more stable and that is a positive. As he gets more stable, pt. may not meet criteria to go to a senior living facility. Pt. is now walking about 60 feet. Shannen stated Pt. cannot come to her house. IT SALES CONSULTANT thanked her for her info. IT SALES CONSULTANT called Pts. father Dutch Seymour who stated to his knowledge Pt. has never has any mental health Dx. for any type of mental illness. He did state that Pt. gets angry and irritated so perhaps he is anxious. IT SALES CONSULTANT shared with him the same info. re. pts. progress and getting to a point where he could discharged. Pts. father stated Niko will not be coming to his home and that maybe Shannen can find a place for him as he stated she had told him, they are not family. IT SALES CONSULTANT stated it must be difficult but if they could come together like they did when pt. was in ICU, that could really help Niko with finding a placement for him. IT SALES CONSULTANT statd Pt. could really benefit from a inpatient drug program. Pt.s father stated, "Let me know if you find a place for him". IT SALES CONSULTANT will remain working on this matter. Addendum: 03/13/19 at 1518 by Erica LUNA Software Project Engineer: Follow up re. placement IT SALES CONSULTANT called the following SNFs' Ronit Reyes,[phone], stated they only take pts. 55 years or older. (pt. is 48yrs.) IT SALES CONSULTANT spoke to Toshia monge who stated they do not have any male beds and all the upcoming d/c are for female beds. [facility], , chemical plant worker, Lexy stated a packet was sent to them from [facility]. This pt. was declined clinically, drugs etc. Kristine Cornell,[phone], stated they take pts. insurance and is willing to review a packet. IT SALES CONSULTANT will fax over an updated packet and will follow up. They received packet, but will not be taking pt. as they do not feel comfortable. [facility], , Sandi stated they do not have any beds available. They only have 1 subacute male bed open. [facility], , stated they take 55 years and older. Nam Babb, a packet was fax'd. IT SALES CONSULTANT will follow up. IT SALES CONSULTANT called this facility and they stated they could not accept pt. because he is too young for their facility. [facility] [phone] stated they only take elder pts. but we could send an efax to [phone] Elana Austin [phone] confirmed they take pts. insurance, have space and will take a look at the inquiry/packet. IT SALES CONSULTANT fax'd over to [phone]. [facility], , spoke to Eun who asked IT SALES CONSULTANT to fax over a packet to her at [phone]. [facility], Alexa Kelsey, no longer has a contract with [facility], number is not working. [facility], IT SALES CONSULTANT called and spoke to Yasmin, will take a look at packet faxd to [phone] [facility], is a locked facility for Alzheimer and Dementia. Addendum: 03/13/19 at 1547 by Erica Elias IT SALES CONSULTANT Software Project Engineer: Continued IT SALES CONSULTANT called [facility] at [phone], its a Prison. [facility] [phone], yes they [place], but no male beds available [facility] [phone], yes they take [place], but no male beds available [facility] [phone], yes they take [place], but no male beds available [facility] , . yes they take [place], but no male beds available [facility], , yes they take [place], but no male beds available. They Stated they take any insurance and they have a bed hold that will exp. on 03/17. IT SALES CONSULTANT can call back on . Addendum: 03/13/19 at 1627 by Erica LUNA Software Project Engineer: follow up IT SALES CONSULTANT called [facility], , yes they take [place], but no male beds available [facility], , spoke to Afshan, they take insurance, IT SALES CONSULTANT fax'd over a packet. Addendum: 03/13/19 at 1643 by Erica LUNA IT SALES CONSULTANT spoke to pt who stated he does not get any type of income. He asked if IT SALES CONSULTANT was working in getting him out and into some type of housing. IT SALES CONSULTANT assured him that she was working on getting him into a SNF and will continue to do so. Pt. stated he did not refuse to do PT today. IT SALES CONSULTANT asked him to be cooperative and do PT when the therapist comes for him. He agreed to do so. Pt. stated he has never be Dx. with any mental illness, but stated he is needing seroquel. IT SALES CONSULTANT will continue to work on this case.
--- NOTE | 2019-03-13 12:01 | NUR ---
PHYSICAL THERAPY CO-SIGN The Physical Therapy Progress Notes documented by Fruit And Vegetable Parer have been reviewed. Reviewed/Co-Signed by: Damian Salas Documentation Done by: Ashish Tobin PTA Addendum: 03/13/19 at 1202 by Damian Salas PT Amended: Links added.
--- NOTE | 2019-03-13 12:16 | NUR ---
PT note Patient refusing therapy at this time; nursing made aware.
[2019-03-13 13:15] VITALS: BP_SYST 133
[2019-03-13 16:15] VITALS: BP_SYST 120
[2019-03-13 19:00] VITALS: BP_SYST 135
--- NOTE | 2019-03-13 19:15 | NUR ---
change of shift.pt.presents quiescent affect;calm,viewing tv programming.loc;confused.pt.presents no iv access md apprised. pt.presents urinal;w/in reach of the pt.pt.capable to reposition self w/in the parameters;bed.no c/o pain,nausea.call light/ telephone w/in reach of the pt.
--- NOTE | 2019-03-13 19:19 | NUR ---
CLOSING NOTES, PATIENT HAS BEEN STABLE THE WHOLE SHIFT , ALL MEDS GIVEN PO, PT TOLERATED WELL. PT GOT AN ORDER FOR CPAP AT NIGHT AND PRN. ENDORSED TO NIGHT NURSE.
[2019-03-13 20:00] VITALS: BP_SYST 135
--- NOTE | 2019-03-13 20:00 | NUR ---
pt.assessed.v/s assessed;values w/in normal limits.no c/o pain,nausea.pt.presents loc;confused.i have oriented pt. to date,time. place.pt.had posited q's if he was to be transferred to a re-hab facility.to f/u re;case mgx/dc p noted.si have apprised the pt. that i may provided snacks/beverages w/in the shift.i have provided pudding,cracker;tay,juice;apple.pt.appreciated the snack/beverages items.pt.capable to reposition self.call light/telephone placed w/in reach of the pt.
[2019-03-13] MEDS: QUEtiapine FUMARATE 200 MG TAB.SR.24H PO SCH (21:00)
--- NOTE | 2019-03-13 21:00 | NUR ---
2100p medication administered.pt.capable to consume the tablets whole;pt. supervised for aspiration potential.
--- NOTE | 2019-03-13 22:00 | NUR ---
pt.assessed pt.presents quiescent affect;calm.i have provided snacks/beverages to the pt.pt.capable to feed self.supervise for aspiration potential. no c/o pain,nausea.pt.capable to reposition self.urinal inspected clean.w/in reach of the pt.call light/telephone placed w/in reach of the pt.
[2019-03-14] VITALS: BP_SYST 122
--- NOTE | 2019-03-14 | NUR ---
pt.assessed pt.presents quiescent affect;calm,somnolent.pt.had refused the application c-pap.pt.capable to reposition self. pt.refused the attempt to place iv access.general status stable. respiratory status stable unlabored.call light/ telephone placed w/in reach of the pt.pt.assessed for cleanliness.
--- NOTE | 2019-03-14 02:00 | NUR ---
pt.assessed pt.presents quiescent affect;calm,somnolent.i have inspected the urinal,cleaned.pt.capable to reposition self. general status stable.respiratory status stable@room air.pt refused the application c-pap.call light/telephone w/in reach of the pt.
--- NOTE | 2019-03-14 04:00 | NUR ---
pt.assessed.pt.presents quiescent affect;calm,somnolent.general status stable.respiratory status stable;unlabored.pt.capable to reposition self. w/in confines of the bed.pt.assessed for cleanliness.call light/telephone placed w/in the reach of the pt.
--- NOTE | 2019-03-14 06:22 | NUR ---
pt.assessed.pt.presents quiescent affect.pt.had requested juice.orange.analyn;puncher had provided the juice.pt.general status stable,respiratory status stable;unlabored.@room air.pt.capable to reposition self w/in the confines of the bed.no c/o pain/ nausea.urinal inspected w/clean w/in reach of the pt.assessed for cleanliness.call light/telephone placed w/in the reach of the pt/
--- NOTE | 2019-03-14 08:00 | NUR ---
Opening notes, Received pt in bed, resting comfortably in bed. allowed pt to sleep, will check vitals later. Pt on room air, No signs of distress noted. Breathing even and unlabored. No IV access. Call light with the patient. Safety precautions in place.
[2019-03-14] MEDS ORDERED: FUROSEMIDE 40 MG/4 ML VIAL IVP ONE (09:45)
[2019-03-14] MEDS: MULTIVITS,CA,MINERALS/IRON/FA 1 TABLET NG SCH (09:47)
[2019-03-14] MEDS: DIPHENHYDRAMINE HCL 25 MG CAPSULE PO SCH ×2 (09:47→21:09)
[2019-03-14] MEDS: CHOLECALCIFEROL (VITAMIN D3) 2,000 UNIT TABLET NG SCH (09:47)
[2019-03-14] MEDS: PANTOPRAZOLE SODIUM 40 MG TAB PO SCH (09:47)
[2019-03-14] MEDS: QUEtiapine FUMARATE 100 MG TABLET PO SCH ×3 (09:47→16:32)
[2019-03-14] MEDS: VITAMIN B COMPLEX 1 CAP/TAB NG SCH (09:47)
[2019-03-14] MEDS: CARVEDILOL 6.25 MG TABLET (COREG) GT SCH ×2 (09:49→21:09)
--- NOTE | 2019-03-14 09:50 | NUR ---
am meds given. vitals wnl, no fever.
[2019-03-14 09:52] VITALS: BP_SYST 128
[2019-03-14] MEDS ORDERED: FUROSEMIDE 40 MG TABLET PO ONE (10:00)
--- NOTE | 2019-03-14 12:18 | NUR ---
pt in bed, sleeping, breathing even and unlabored. will wake up pt for lunch.
[2019-03-14 12:22] VITALS: BP_SYST 129
[2019-03-14 16:00] VITALS: BP_SYST 131
--- NOTE | 2019-03-14 16:25 | NUR ---
Received a call from Pt. father Kris to report that client in on Probation and has a warrant for his arrest, will require a letter at [place] indicating he was hospitalized. THERMOPLASTIC TECHNICIAN documented on chart this request. Pt. will be provided with document at [place].
--- NOTE | 2019-03-14 17:32 | NUR ---
PT IN BED RESTING, NO SOB, PT APPEARS COMFORTABLE. WILL CONT TO MONITOR.
--- NOTE | 2019-03-14 18:06 | NUR ---
PHYSICAL THERAPY CO-SIGN The Physical Therapy Progress Notes documented by Process Analyst have been reviewed. Reviewed/Co-Signed by: Antoinette Gold Documentation Done by:ELANA EVANS LPN CMA PROGRESSING W/ FUNC MOB & GAIT ENDURANCE; 03/14/19 Hgb=8.5 Addendum: 03/14/19 at 1810 by Antoinette Gold PT Amended: Links added.
--- NOTE | 2019-03-14 18:28 | NUR ---
CLOSING NOTES, PT HAS BEEN STABLE, MEDS GIVEN. NO IV ACCESS, VITALS WNL, NO EPISODES OF FALL AND AGRESSIVENESS. COOPERATIVE WITH MEDICATIONS. WILL ENDORSE TO NIGHT NURSE.
[2019-03-14 20:38] VITALS: BP_SYST 102
[2019-03-14] MEDS: QUEtiapine FUMARATE 200 MG TAB.SR.24H PO SCH (21:09)
--- NOTE | 2019-03-14 22:00 | NUR ---
PT RECIVED AWAKE ALERT AND ORIENTED , ON SINUS RYTHM , VITAL SIGN STABLE . PT ATTEMPING TO REST.
--- NOTE | 2019-03-15 | NUR ---
PT ON SINUS RYTHM . PT HAVE NO CONPLAIN .
--- NOTE | 2019-03-15 01:01 | NUR ---
pt recieved awake and oriented x3. skin dry and intact .vital signs stable. scope sinus rythm pt voiding pt have stoma from previous trach. pt on room air oxygen . pt given hs snack . will monitor pt as nesasary.
[2019-03-15 01:09] VITALS: BP_SYST 114
--- NOTE | 2019-03-15 02:00 | NUR ---
PT SLEEPING . RESTING QUITELY.
--- NOTE | 2019-03-15 04:00 | NUR ---
PT STILLL RESTING QUITELY .
--- NOTE | 2019-03-15 06:00 | NUR ---
PT REFUED TO BE WEIGHED . PT DOES NO WANT TO BE AWAKING FOR THAT MEDS GIVEN WILL MONITOR PT ASPLANNED.
--- NOTE | 2019-03-15 07:30 | NUR ---
Patient asleep with no distress noted at this time. Patient stable.
[2019-03-15] MEDS: QUEtiapine FUMARATE 100 MG TABLET PO SCH ×3 (08:52→16:30)
[2019-03-15] MEDS: FUROSEMIDE 40 MG TABLET PO SCH (08:53)
[2019-03-15] MEDS: CARVEDILOL 6.25 MG TABLET (COREG) GT SCH ×2 (08:53→21:00)
[2019-03-15] MEDS: MULTIVITS,CA,MINERALS/IRON/FA 1 TABLET NG SCH (08:54)
[2019-03-15] MEDS: VITAMIN B COMPLEX 1 CAP/TAB NG SCH (08:54)
[2019-03-15] MEDS: DIPHENHYDRAMINE HCL 25 MG CAPSULE PO SCH ×2 (08:54→21:00)
[2019-03-15] MEDS: CHOLECALCIFEROL (VITAMIN D3) 2,000 UNIT TABLET NG SCH (08:54)
[2019-03-15] MEDS: PANTOPRAZOLE SODIUM 40 MG TAB PO SCH (08:54)
[2019-03-15] MEDS: DIGOXIN 0.125 MG TABLET PO SCH (08:54)
[2019-03-15 08:55] VITALS: BP_SYST 127
[2019-03-15] MEDS: FUROSEMIDE 40 MG/4 ML VIAL IVP SCH (08:55)
--- NOTE | 2019-03-15 08:55 | NUR ---
Scheduled medications given per order. Patient sitting on side of bed with no complaint of pain. Patient stable at this time.
--- NOTE | 2019-03-15 09:40 | NUR ---
Patient ambulating with walker in hallway. PT at patient's side.
--- NOTE | 2019-03-15 10:45 | NUR ---
DC Planning: s/w dr. Pelaez for the discharge planning : the md stated " okay to discharge the pt to home with home health or to snf with current medication and treatment plan. No discharge to penitentiary. Petra, director made aware.
--- NOTE | 2019-03-15 11:40 | NUR ---
Scheduled med given per order. Patient lying in bed, talking to on the phone.
[2019-03-15 12:15] VITALS: BP_SYST 120
[2019-03-15 13:00] VITALS: BP_SYST 120
--- NOTE | 2019-03-15 15:43 | NUR ---
Social Service Note: COOK COLD MEAT spoke with CM and CM director regarding pt's plan of care. Pt's physician has asked that a family meeting be set up to discuss pt's plan of care. COOK COLD MEAT placed call to pt's (Shannen [phone]); Shannen states that she is agreeable to a family meeting; she states that she arrived today in [place] for work all next week; pt's states that she will call COOK COLD MEAT after Monday (03/18/19) to see when she will be available for speak via phone for family meeting. Shannen states that she will also speak with pt's father about the need for a family meeting. COOK C[employer] MEAT received order for evaluation for pt at [place] [facility]; pt is not currently on a 5150, pt was seen by psychiatrist today. COOK COLD MEAT did speak with pt's about the possibility of pt going voluntarily to a psychiatric hospital for evaluation once pt is cleared medically for a discharge home, but that admission to a psychiatric facility could not be guaranteed for voluntary admission. COOK COLD MEAT will remain available for support and will follow up as needed.
[2019-03-15 16:03] VITALS: BP_SYST 116
--- NOTE | 2019-03-15 16:34 | NUR ---
Scheduled medication given per order. Patient resting quietly in bed with no distress noted. Denies any pain. Patient stable.
--- NOTE | 2019-03-15 16:40 | NUR ---
Nutrition F/U RD reviewed pt's current EMR including diet Hx, physician notes, nursing notes, pertinent labs/meds/procedures, care trends, and care activity. Current Diet Order: Cardiac diet w/ Ensure Enlive TID, Ok BID x10 days Subjective information: Pt seen laying in bed, covered in blankets. Pt reported good, increasing appetite. RD inquired about Ensure and Ok supplementation -- pt stated he has not been taking them as he is getting tired of them. RD educated pt on importance of lean muscle preservation -- pt agreeable to continuing to take chocolate-flavored Ensure Enlive ONS and fruit punch-flavored Ok. RD notified [facility] staff. EMR records indicate fair PO intakes -- 72% average x13 meals. BM x1 03/14/19 per EMR. Recent wt Hx reveals some wt fluctuations possibly r/t Hx of CHF: 246#/112 kg (03/15/19); 255#/115 kg (03/03/19); 246#/112 kg (03/02/19); 242#/110 kg (03/01/19); 249#/113 kg (02/28/19). ESTIMATED NUTRITIONAL REQUIREMENTS NEW CALORIES/DAY: 0421-2010 kcal/day (MSJ x 1-1.2 CBW d/t obesity, maintenance) PROTEIN/DAY: 127-196 gm/day (1.3-2 gm/kg Adj IBW for obesity, COPD) FLUID/DAY: Per physician d/t Hx of CHF PES 1. Morbid Obesity r/t inability to access healthier food choices AEB possible consumption of high calorie food and beverage from fast food restaurants and convenient stores, homelessness, and BMI 40 kg/m2. *no longer applicable 2. Inadequate nutrient intake r/t medication intake AEB PO intake not meeting 75% of estimated needs and nursing staff report. *ongoing 3. Unintentional wt loss related to possible lean muscle mass depletion as evidenced by possible 47#/15% wt change within 1 month. *ongoing 4. Inadequate EN support related to critical illness as evidenced by no currently infusing nutrition support. *resolved 5. Inadequate EN support r/t increased caloric needs AEB current EN regimen provides <75% of estimated calorie needs. *improved I: 1. Recommend continuing cardiac diet w/ Ensure Enlive TID, Ok BID (1230 kcal/day, 65 gm protein/day) M: Monitor tolerance to EN support, provision of diet order w/ goal of pt meeting at least 85% of estimated nutritional needs, labs trending WNL, normal GI function, skin integrity/wt maintenance. E: Moderate Risk; F/U within 3-5 days
--- NOTE | 2019-03-15 16:45 | NUR ---
Dietitian Recommendations * Recommend continuing cardiac diet w/ Ensure Aubrey MCKENNA Ok LEDEZMA (1230 kcal/day, 65 gm protein/day) PEPPER [place] Please refer to Nutrition Assessment for details. Addendum: 03/15/19 at [address] CORRECTION: Please refer to Nutrition F/U for details.
--- NOTE | 2019-03-15 20:00 | NUR ---
PT AWAKE ALERT AND IRIENTED X3 .PT PT HAVE STOMA FROM PREVIOUS TRACH .PT HAVE G-TUBE . PT ABLE TO TAKE MEDICATION WELL. PT MEDICATED WITH SLEEPING PILL. WILL CONTINUE TO MONITOR PT.
[2019-03-15] MEDS: QUEtiapine FUMARATE 200 MG TAB.SR.24H PO SCH (21:00)
[2019-03-15 22:45] VITALS: BP_SYST 135
--- NOTE | 2019-03-16 | NUR ---
PT SLEEPIMG . WILL CONTINUE TO MONITOR PT ,
--- NOTE | 2019-03-16 02:00 | NUR ---
PT SLEEPING . WILL CONTINUE TO MONITOR PT,
--- NOTE | 2019-03-16 02:00 | NUR ---
continuation of carfe: sleeping, comfortable. no sign of distress. stable. safety on. call light in reach. will follow-up.
[2019-03-16 02:41] VITALS: BP_SYST 108
--- NOTE | 2019-03-16 04:15 | NUR ---
sleeping, comfortable.no pain, no sob, no sign of distress. stable. safety on. call light in reach. will follow-up.
--- NOTE | 2019-03-16 06:00 | NUR ---
sleeping, comfortable.no pain, no sob, no sign of distress. stable. safety on. call light in reach. will follow-up.
[2019-03-16 08:00] VITALS: BP_SYST 107
--- NOTE | 2019-03-16 08:00 | NUR ---
Initial notes- Pt sleeping at this time. No acute distress noted.
[2019-03-16] MEDS: QUEtiapine FUMARATE 100 MG TABLET PO SCH ×3 (08:59→17:57)
[2019-03-16] MEDS: FUROSEMIDE 40 MG TABLET PO SCH (08:59)
[2019-03-16] MEDS: CARVEDILOL 6.25 MG TABLET (COREG) GT SCH ×2 (09:00→21:00)
[2019-03-16] MEDS: PANTOPRAZOLE SODIUM 40 MG TAB PO SCH (09:00)
[2019-03-16] MEDS: MULTIVITS,CA,MINERALS/IRON/FA 1 TABLET NG SCH (09:00)
[2019-03-16] MEDS: FUROSEMIDE 40 MG/4 ML VIAL IVP SCH (09:00)
[2019-03-16] MEDS: CHOLECALCIFEROL (VITAMIN D3) 2,000 UNIT TABLET NG SCH (09:00)
[2019-03-16] MEDS: DIPHENHYDRAMINE HCL 25 MG CAPSULE PO SCH ×2 (09:00→20:58)
[2019-03-16] MEDS: VITAMIN B COMPLEX 1 CAP/TAB NG SCH (09:00)
--- NOTE | 2019-03-16 09:00 | NUR ---
pt is walking in the hallway with physical therapy.
[2019-03-16 11:23] VITALS: BP_SYST 106
[2019-03-16] MEDS: ACETAMINOPHEN 650 MG/20.3 ML UDC NG PRN ×2 (11:32→15:44)
--- NOTE | 2019-03-16 13:00 | NUR ---
PHYSICAL THERAPY CO-SIGN The Physical Therapy Progress Notes documented by Registered Nurses have been reviewed. Reviewed/Co-Signed by: Antoinette Gold PT Documentation Done by:BRANDI MORRISON PTA POC REVIEWED W/ PUNCH HAND; PROGRESSING W/ FUNC MOB; PSYCHOSOCIAL FACTOR; WILL BENEFIT W/ P.T. POST ACUTE STAY. 03/13/19 Hgb=8.5; 03/15/19 XR CHEST:CARDIOMEGALY, L PL EFF Addendum: 03/16/19 at 1301 by Antoinette Gold PT Amended: Links added.
[2019-03-16 15:02] LABS: EOSINOPHILS # (AUTO) 0.3 K/uL (0.0-0.4); EOSINOPHILS % (AUTO) 3.3 % (0.0-4.0); HEMATOCRIT 28.2 % (36-54); HEMOGLOBIN 9.4 g/dL (14.0-18.0); LYMPHOCYTES # (AUTO) 1.5 K/uL (1.0-5.5); LYMPHOCYTES % (AUTO) 14.3 % (20.5-51.5); MEAN CORPUSCULAR HEMOGLOBIN 29 pg (27-31); MEAN CORPUSCULAR HGB CONC 33 % (32-36); MEAN CORPUSCULAR VOLUME 86 fL (79.0-98.0); MONOCYTES # (AUTO) 1.1 K/uL (0.0-1.0); MONOCYTES % (AUTO) 10.5 % (1.7-9.3); PLATELET COUNT (AUTO) 363 K/uL (130-430); RED BLOOD CELL COUNT(AUTO) 3.29 MIL/uL (4.2-6.2); RED CELL DISTRIBUTION WIDTH 21.4 % (9.0-15.0); WHITE BLOOD COUNT (AUTO) 10.5 K/uL (4.8-10.8)
[2019-03-16 15:09] LABS: CALCIUM 9.5 mg/dL (8.4-11.0); CREATININE 1.19 mg/dL (0.55-1.30); POTASSIUM 3.8 mmol/L (3.5-5.1)
[2019-03-16 15:14] VITALS: BP_SYST 96
[2019-03-16 15:22] LABS: BASOPHILS % (AUTO) 0.2 % (0.0-2.0); NEUTROPHILS # (AUTO) 7.5 K/uL (1.8-7.7); NEUTROPHILS % (AUTO) 71.7 % (40.0-70.0)
--- NOTE | 2019-03-16 18:23 | NUR ---
Notes- In bed, just done eating. Feels cold. Warm blanket provided. All needs meet through out shift. No change in assessment.
--- NOTE | 2019-03-16 19:20 | NUR ---
CHANGE OF SHIFT; pt. sleeping when received, been awake all day per day shift. no acute distress. appears comfortable. call light at bedside. pt. room close to nurses station. bed in low position. will reassess later.
[2019-03-16 20:30] VITALS: BP_SYST 103
--- NOTE | 2019-03-16 20:30 | NUR ---
NOTES: pt. been sleeping, awakened for VS and due medications, hardly would wake up and quite upset, moves and repositioned self. no complaints at this time, just want to sleep. call light at bedside. Addendum: 03/16/19 at 2136 by Darline Sumner RN noted trach site closed and dry.
[2019-03-16] MEDS: QUEtiapine FUMARATE 200 MG TAB.SR.24H PO SCH (20:59)
--- NOTE | 2019-03-16 22:41 | NUR ---
NOTES: pt. remained sleeping. no acute distress. g tube checked clamped. taking oral liquids with diet.
--- NOTE | 2019-03-17 01:06 | NUR ---
NOTES: pt. remain sleeping. in no distress. able to turn side to side. condition observed.
--- NOTE | 2019-03-17 03:10 | NUR ---
NOTES: pt. try to wake up by BLOOD BANK LABORATORY TECHNOLOGIST for VS, does not want to be bothered " leave me alone" and does not want to be clean up but able to take VS.
[2019-03-17 03:13] VITALS: BP_SYST 102
--- NOTE | 2019-03-17 04:00 | NUR ---
NOTES: pt. dangle at bedside and voided, asked if he needs help and said "no". went back to sleep. continue to monitor.
--- NOTE | 2019-03-17 05:30 | NUR ---
NOTES: asked pt. if he wants help to wash up this am but refused, just want to sleep. gets upset easily and gets uncooperative.
--- NOTE | 2019-03-17 06:41 | NUR ---
CLOSING NOTES; pt. been sleeping, no acute distress. no complaints, for further assistance. still waiting for placement.
--- NOTE | 2019-03-17 07:30 | NUR ---
Initial notes: Patient sleeping. Stable. No Iv access. aware. Call light within reach. Safety measures in placed. Report received at bedside.
[2019-03-17 08:00] VITALS: BP_SYST 120
[2019-03-17] MEDS: CARVEDILOL 6.25 MG TABLET (COREG) GT SCH ×2 (08:36→21:23)
[2019-03-17] MEDS: PANTOPRAZOLE SODIUM 40 MG TAB PO SCH (08:37)
[2019-03-17] MEDS: FUROSEMIDE 40 MG TABLET PO SCH (08:37)
[2019-03-17] MEDS: DIPHENHYDRAMINE HCL 25 MG CAPSULE PO SCH ×2 (08:37→21:22)
[2019-03-17] MEDS: VITAMIN B COMPLEX 1 CAP/TAB NG SCH (08:38)
[2019-03-17] MEDS: MULTIVITS,CA,MINERALS/IRON/FA 1 TABLET NG SCH (08:38)
[2019-03-17] MEDS: DIGOXIN 0.125 MG TABLET PO SCH (08:38)
[2019-03-17] MEDS: CHOLECALCIFEROL (VITAMIN D3) 2,000 UNIT TABLET NG SCH (08:38)
[2019-03-17] MEDS: QUEtiapine FUMARATE 100 MG TABLET PO SCH ×3 (08:38→16:58)
--- NOTE | 2019-03-17 08:43 | NUR ---
rounds: Patient awake, alert and oriented. Discussed plan of care. Finishing breakfast.
[2019-03-17 11:12] VITALS: BP_SYST 120
--- NOTE | 2019-03-17 12:08 | NUR ---
rounds: Patient sleeping on bed. no distress noted.
--- NOTE | 2019-03-17 14:32 | NUR ---
rounds: Patient sleeping. no distress noted.
[2019-03-17 15:04] VITALS: BP_SYST 118
--- NOTE | 2019-03-17 16:02 | NUR ---
rounds: Patient sleeping. No distress noted.
--- NOTE | 2019-03-17 16:24 | NUR ---
rounds: Patient sitting at the edge of the bed, having snacks.
--- NOTE | 2019-03-17 18:30 | NUR ---
Closing notes: Patient resting on bed. Stable. Needs attended. No I.V line. Call light within reach. Safety measures in placed. Report will be given to night auditor.
--- NOTE | 2019-03-17 19:20 | NUR ---
CHANGE OF SHIFT; pt. asleep when received, does not want to be bothered, reminded pt. that he is in the hospital, on close watch, pt. room near nurses station, instructed to call for help. on fall risk precautions.
[2019-03-17 20:45] VITALS: BP_SYST 117
--- NOTE | 2019-03-17 21:00 | NUR ---
NOTES: pt. awakened but was upset and trying to push me away, reminded him where he is and needed to take VS and medications. pt. agreed on his VS and meds. no complaints of pain, he just want to sleep, disoriented since he thought its 4 am, pt. reoriented.
[2019-03-17] MEDS: QUEtiapine FUMARATE 200 MG TAB.SR.24H PO SCH (21:24)
--- NOTE | 2019-03-17 22:30 | NUR ---
NOTES: remain sleeping. no complaints.
--- NOTE | 2019-03-18 00:15 | NUR ---
NOTES: pt. been sleeping quietly. turn to sides by himself.
--- NOTE | 2019-03-18 03:25 | NUR ---
NOTES: continue to monitor, sleeping comfortably.
--- NOTE | 2019-03-18 05:20 | NUR ---
NOTES: tried to wake up and gets mad, refused to be clean up and recheck VS since he also refused midnight. pt. saying"don't bother me"/ g tube site unable to check since he wont let anyone to see it.
--- NOTE | 2019-03-18 06:45 | NUR ---
CLOSING NOTES; NO CHANGE ON PT. CONDITION, BEEN SLEEPING ALL NIGTH AND DOES NOT WANT TO BE BOTHERED. ON FALL RISK PRECAUTIONS. PT. GETS UPSET AND MAD EASILY.
[2019-03-18 07:22] LABS: BASOPHILS # (AUTO) 0.1 K/uL (0.0-0.2); BASOPHILS % (AUTO) 1.7 % (0.0-2.0); EOSINOPHILS # (AUTO) 0.4 K/uL (0.0-0.4); EOSINOPHILS % (AUTO) 5.5 % (0.0-4.0); HEMATOCRIT 27.9 % (36-54); HEMOGLOBIN 9.4 g/dL (14.0-18.0); LYMPHOCYTES # (AUTO) 1.4 K/uL (1.0-5.5); LYMPHOCYTES % (AUTO) 19.1 % (20.5-51.5); MEAN CORPUSCULAR HEMOGLOBIN 28 pg (27-31); MEAN CORPUSCULAR HGB CONC 34 % (32-36); MEAN CORPUSCULAR VOLUME 85 fL (79.0-98.0); MONOCYTES % (AUTO) 12.9 % (1.7-9.3); NEUTROPHILS # (AUTO) 4.6 K/uL (1.8-7.7); NEUTROPHILS % (AUTO) 60.8 % (40.0-70.0); PLATELET COUNT (AUTO) 340 K/uL (130-430); RED CELL DISTRIBUTION WIDTH 20.7 % (9.0-15.0); WHITE BLOOD COUNT (AUTO) 7.5 K/uL (4.8-10.8)
--- NOTE | 2019-03-18 07:30 | NUR ---
RN OPENING PATIENT APPEARS TO BE RESTING NO SIGNS OF ANY DISTRESS,BREATHING IS EQUAL AND NON LABORED. PATIENT HAS ALL SAFETY PRECAUTIONS IN PLACE. CALL LIGHT IS WITH HIM, CLOSE TO NURSES STATION. WILL CONTINUE TO MONITOR.
[2019-03-18 08:02] LABS: DIGOXIN 0.4 ng/mL (0.80-2.00)
[2019-03-18 08:07] LABS: POTASSIUM 3.6 mmol/L (3.5-5.1)
[2019-03-18 08:08] LABS: CALCIUM 9.4 mg/dL (8.4-11.0); CREATININE 1.11 mg/dL (0.55-1.30); TOTAL BILIRUBIN 0.8 mg/dL (0.0-1.0)
[2019-03-18 08:20] VITALS: BP_SYST 118
[2019-03-18] MEDS: MULTIVITS,CA,MINERALS/IRON/FA 1 TABLET NG SCH (08:35)
[2019-03-18] MEDS: VITAMIN B COMPLEX 1 CAP/TAB NG SCH (08:35)
[2019-03-18] MEDS: QUEtiapine FUMARATE 100 MG TABLET PO SCH ×3 (08:35→17:29)
[2019-03-18] MEDS: FUROSEMIDE 40 MG TABLET PO SCH (08:36)
[2019-03-18] MEDS: DIGOXIN 0.125 MG TABLET PO SCH (08:36)
[2019-03-18] MEDS: DIPHENHYDRAMINE HCL 25 MG CAPSULE PO SCH ×2 (08:36→20:19)
[2019-03-18] MEDS: PANTOPRAZOLE SODIUM 40 MG TAB PO SCH (08:36)
[2019-03-18] MEDS: CHOLECALCIFEROL (VITAMIN D3) 2,000 UNIT TABLET NG SCH (08:37)
[2019-03-18] MEDS: CARVEDILOL 6.25 MG TABLET (COREG) GT SCH ×2 (08:37→20:22)
--- NOTE | 2019-03-18 08:41 | NUR ---
medication Patients scheduled medication given as ordered. patient is awake and alert sitting up in bed eating breakfast. patient is coughing up phlegm but no signs of any distress,breathing is equal and non labored. patient educated drill press operator numerical control light for assistance. call light is with patient. patient has no other needs at this time. close to nurses station. will continue to monitor.
--- NOTE | 2019-03-18 10:45 | NUR ---
RN ROUNDING PATIENT APPEARS TO BE RESTING WITH BOTH EYES CLOSED NO SIGNS OF ANY DISTRESS, BREATHING IS EQUAL AND NON LABORED. PATIENT HAS ALL SAFETY PRECAUTIONS IN PLACE. CALL LIGHT IS WITH HIM, CLOSE TO NURSES STATION.WILL CONTINUE TO MONITOR.
--- NOTE | 2019-03-18 12:55 | NUR ---
medication Patients scheduled medication given per order. patient is awake and alert, sitting up in bed, no signs of any distress, no complaints at this time. patient has all safety precautions in place. close to nurses station. will continue to monitor.
--- NOTE | 2019-03-18 15:13 | NUR ---
RN ROUNDING PATIENT APPEARS TO BE SLEEPING,NO SIGNS OF ANY DISTRESS, BREATHING IS EQUAL AND NON LABORED. PATIENT HAS ALL SAFETY PRECAUTIONS IN PLACE. PATIENT IS CLOSE TO NURSES STATION WILL CONTINUE TO MONITOR.
[2019-03-18 15:41] VITALS: BP_SYST 114
[2019-03-18 16:00] VITALS: BP_SYST 114
--- NOTE | 2019-03-18 17:31 | NUR ---
Medication Patients scheduled medication given per order. Patient is awake and alert no signs of any distress, breathing is equal and non labored. patient has al safety precautions in place.call light is with patient. patient is close to nurses station. no other needs at this time.
--- NOTE | 2019-03-18 18:13 | NUR ---
RN CLOSING NOTE PATIENT IS AWAKE AND ALERT SITTING UP IN BED EATING DINNER. PATIENT HAS NO COMPLAINTS AT THIS TIME. PATIENTS BREATHING IS EQUAL AND NON LABORED. PATIENT HAS CALL LIGHT WITH HIM. EDUCATED TO USE CALL LIGHT FOR ASSISTANCE. PATIENT IS CLOSE TO NURSE STATION. PATIENT SHOWS NO SIGNS OF ANY DISTRESS. NO OTHER NEEDS AT THIS TIME.
--- NOTE | 2019-03-18 19:05 | NUR ---
OPENING NOTES RECEIVED PATIENT IN BED AAOX 4. BREATHING UNLABORED ON ROOM AIR. DENIES ANY PAIN AT THIS TIME. BED IN LOWEST LOCKED POSITION. CALL LIGHT WITH IN REACH. BED ALARM ON.
[2019-03-18 20:15] VITALS: BP_SYST 107
[2019-03-18] MEDS: QUEtiapine FUMARATE 200 MG TAB.SR.24H PO SCH (20:20)
--- NOTE | 2019-03-18 20:22 | NUR ---
MED PASS PATIENT DUE MEDICATIONS GIVEN AND TOLERATED. VITAL SIGNS STABLE.
--- NOTE | 2019-03-19 00:30 | NUR ---
ROUNDS PATIENT RESTING IN BED. NO DISTRESS NOTED. BED ALARM ON.
--- NOTE | 2019-03-19 02:00 | NUR ---
ROUNDS NO CHANGE IN CONDITION. CALL LIGHT WITH IN REACH.
--- NOTE | 2019-03-19 04:27 | NUR ---
ROUNDS PATIENT RESTING IN BED. BREATHING UNLABORED ON ROOM AIR.
--- NOTE | 2019-03-19 06:39 | NUR ---
CLOSING NOTES PATIENT RESTING IN BED. CONDITION UNCHANGED. BED IN LOWEST LOCKED POSITION WITH ALARM ON. CALL LIGHT WITH IN REACH.
--- NOTE | 2019-03-19 07:15 | NUR ---
received patient report at the bedside. patient alert awake x 3. breathing even and unlabored. lungs bilaterally clear but diminished at the bases. refused to have a hospital gown. no iv access, patients refused. bed low position, alarmed and locked. call lights within reach. continue to monitor patients status.
[2019-03-19 08:00] VITALS: BP_SYST 119
[2019-03-19] MEDS: DIPHENHYDRAMINE HCL 25 MG CAPSULE PO SCH ×2 (09:52→21:00)
[2019-03-19] MEDS: MULTIVITS,CA,MINERALS/IRON/FA 1 TABLET NG SCH (09:52)
[2019-03-19] MEDS: PANTOPRAZOLE SODIUM 40 MG TAB PO SCH (09:53)
[2019-03-19] MEDS: DIGOXIN 0.125 MG TABLET PO SCH (09:53)
[2019-03-19] MEDS: CARVEDILOL 6.25 MG TABLET (COREG) GT SCH ×2 (09:54→21:00)
[2019-03-19] MEDS: FUROSEMIDE 40 MG TABLET PO SCH (09:54)
[2019-03-19] MEDS: CHOLECALCIFEROL (VITAMIN D3) 2,000 UNIT TABLET NG SCH (09:54)
[2019-03-19] MEDS: VITAMIN B COMPLEX 1 CAP/TAB NG SCH (09:56)
--- NOTE | 2019-03-19 10:00 | NUR ---
due meds given
[2019-03-19] MEDS: QUEtiapine FUMARATE 100 MG TABLET PO SCH ×3 (10:01→16:37)
[2019-03-19 11:17] VITALS: BP_SYST 111
[2019-03-19 15:28] VITALS: BP_SYST 111
--- NOTE | 2019-03-19 16:00 | NUR ---
SLEEPING AND RESTING AT THIS TIME.
[2019-03-19] MEDS: ACETAMINOPHEN 650 MG/20.3 ML UDC NG PRN (16:39)
[2019-03-19] MEDS: IPRATROPIUM/ALBUTEROL SULFATE 3 ML AMPUL.NEB (DUONEB) INH PRN (16:56)
--- NOTE | 2019-03-19 19:15 | NUR ---
ENDORSED TO INCOMING NURSE TAE PINEDA
--- NOTE | 2019-03-19 19:20 | NUR ---
OPENING NOTES RECEIVED PATIENT IN BED RESTING EYES CLOSED. BREATHING UNLABORED ON ROOM AIR. BED IN LOWEST LOCKED POSITION WITH ALARM ON. CALL LIGHT WITH IN REACH.
[2019-03-19] MEDS: QUEtiapine FUMARATE 200 MG TAB.SR.24H PO SCH (21:00)
--- NOTE | 2019-03-19 21:00 | NUR ---
MED PASS PATIENT REFUSED VITAL SIGNS AND DUE MEDICATIONS. PATIENT DOES NOT WANT TO BE DISTURBED FROM HIS SLEEP.
--- NOTE | 2019-03-20 01:23 | NUR ---
ROUNDS PATIENT RESTING IN BED. NO DISTRESS NOTED. REFUSED MIDNIGHT VITAL SIGNS. KEPT WARMED WITH BLANKETS.
--- NOTE | 2019-03-20 03:53 | NUR ---
NOTES PATIENT AWAKE SITTING IN BED. ORANGE JUICE PROVIDED PER PATIENT REQUEST. PATIENT STILL REFUSING VITAL SIGNS. PATIENT REFUSING TO WEAR HOSPITAL GOWN. HE WOULD ONLY USE BLANKET.
--- NOTE | 2019-03-20 06:39 | NUR ---
CLOSING NOTES PATIENT RESTING IN BED. BREATHING UNLABORED ON ROOM AIR. PATIENT REFUSED AM CARE. BED IN LOWEST LOCKED POSITION WITH ALARM ON. CALL LIGHT WITH IN REACH.
--- NOTE | 2019-03-20 07:15 | NUR ---
report received at the bedside. patient aaox 3. refused to have vitals signs taken. said later. breathing even and unlabored. abdomen soft and non distended. wants to have no gown while sleeping. no iv access. bed low position, alarmed and locked. call lights within reach. hourly monitoring. continue to monitor patients status.
[2019-03-20 08:00] VITALS: BP_SYST 119
--- NOTE | 2019-03-20 08:00 | NUR ---
pt has gastrostomy tube in placed and clamped dry and intact no skin irritation noted.
[2019-03-20] MEDS: DIPHENHYDRAMINE HCL 25 MG CAPSULE PO SCH ×2 (08:29→20:53)
[2019-03-20] MEDS: VITAMIN B COMPLEX 1 CAP/TAB NG SCH (08:29)
[2019-03-20] MEDS: MULTIVITS,CA,MINERALS/IRON/FA 1 TABLET NG SCH (08:29)
[2019-03-20] MEDS: QUEtiapine FUMARATE 100 MG TABLET PO SCH ×3 (08:30→17:00)
[2019-03-20] MEDS: CHOLECALCIFEROL (VITAMIN D3) 2,000 UNIT TABLET NG SCH (08:30)
[2019-03-20] MEDS: PANTOPRAZOLE SODIUM 40 MG TAB PO SCH (08:31)
[2019-03-20] MEDS: FUROSEMIDE 40 MG TABLET PO SCH (08:31)
[2019-03-20] MEDS: CARVEDILOL 6.25 MG TABLET (COREG) GT SCH ×2 (08:31→20:55)
[2019-03-20] MEDS: DIGOXIN 0.125 MG TABLET PO SCH (08:32)
--- NOTE | 2019-03-20 08:39 | NUR ---
Pat medication given v/s taken with no complaints. aid pt with ADLs pt eating breakfast refuse to wear gown call light with in reach.
--- NOTE | 2019-03-20 09:00 | NUR ---
ATTENDING MD DR KEARNS WAS CALLED, RE: PT WANTS TO GO AMA. SPOKE TO JORY.
--- NOTE | 2019-03-20 09:15 | NUR ---
DR. Pelaez called, but no orders were given.
--- NOTE | 2019-03-20 09:30 | NUR ---
verbalized wants to go home. and wants to have discharge against medical advice to signed.
--- NOTE | 2019-03-20 09:40 | NUR ---
patient signed to discharge against medical advice. but awaiting for the security to come and bring the the clothings. and security called the ux design lead to come and evaluate the patient.
--- NOTE | 2019-03-20 10:53 | NUR ---
Pt note Patient refusing therapy at this time; nursing aware.
--- NOTE | 2019-03-20 11:39 | NUR ---
Route Inspector: Pt. signed Zeinab ARROYO in pt. room JEREMY Martineztana and Austin responded to a call from Rn. Tate who stated pt. signed AMA form and was ready to leave. Rn added nursing staff called the [facility] to pts. room. Rn informed CRUISE STAFF MEMBER's that police could not arrest pt. (who has a warrant for his arrest in the [facility] for drug charges) because of pts. medical condition. He still has a feeding tube in place. Both CRUISE STAFF MEMBER's spoke to pt. who looked scared and upset and at times crying. JEREMY Elias stated pt. should stay to get all the medical attention he needs and informed him that social worker was still trying to look for a snf who will accept him. Pt. needed a lot of reassurance re. efforts to find a placement, that the police were not in the hallway waiting to get him and that he can stay at the hospital. JEREMY Elias asked pt. to work with the hospital staff and be cooperative in his care. Pt. agreed to stay and medical staff including Development Technician, Rn, [facility] security and supervisor housecleaner, Charisma were informed on pts. decision to stay. CRUISE STAFF MEMBERFaby Elias and JEREMY Burgos will continue to work on this case and remain available as needed. 2 deputies from [facility] left the premises and reiterated to Rn that they could not arrest pt. as it is out of their jurisdiction and pt has a medical condition. Addendum: 03/20/19 at 1400 by Erica Elias CRUISE STAFF MEMBER Route Inspector: Follow up care re. possible placement in a snf, packets sent last week. CRUISE STAFF MEMBER followed up with phone calls from packets that were sent out last week. CRUISE STAFF MEMBER called Elana Austin at [phone] and Aniya from intake stated they will not be able to take pt. CRUISE STAFF MEMBER called [facility], who stated they will not be able to accept pt. CRUISE STAFF MEMBER called Yasmin at [facility] , They stated based on pts. pscy. holds and meth use, pt. cannont be acepted. CRUISE STAFF MEMBER called Afshan at [facility] who stated he did recive the inquiry/packet last week, found it as CRUISE STAFF MEMBER was on the phone and stated he was going to check in with his physician practice administrator and will get back to CRUISE STAFF MEMBER.
--- NOTE | 2019-03-20 12:40 | NUR ---
patient verbalized to stay in room, he is so afraid of the grand jury deputy sheriff. thought he will be arrested. and decided to stay in the hospital.
--- NOTE | 2019-03-20 13:31 | NUR ---
PHYSICAL THERAPY CO-SIGN The Physical Therapy Progress Notes documented by Business Developer have been reviewed. Reviewed/Co-Signed by: Damian Salas PT Documentation Done by: ELANA EVANS PTA Addendum: 03/20/19 at 1333 by Damian Salas PT Amended: Links added.
--- NOTE | 2019-03-20 14:53 | NUR ---
pt. sleeping both eyes closed resting comfortably no SOB noted. pt lunch tray at bedside
--- NOTE | 2019-03-20 15:02 | NUR ---
awaiting for Dr. Pelaez to come possible DC G-tube
--- NOTE | 2019-03-20 15:31 | NUR ---
Nutrition F/U RD reviewed pt's current EMR including diet Hx, physician notes, nursing notes, pertinent labs/meds/procedures, care trends, and care activity. Current Diet Order: Cardiac diet w/ Ensure Enlive TID, Ok BID x15 days Subjective information: Pt was alert sitting on bed. Pt reported a low appetite because he is tired of the food. DI inquired about Ensure Enlive, pt reported he will continue to take them. 82% average PO intake x12 meals per EMR. Pt requested to be on regular diet to avoid dietary restrictions, RN was notified on pt request. RN reports, pt is wanting to leave against medical advice and is eating ok. No plans/procedure scheduled. Recent wt Hx reveals some wt fluctuations possibly r/t Hx of CHF: 238.7#/ 109kg (03/20/19); 246#/112 kg (03/15/19); 255#/115 kg (03/03/19); 246#/112 kg (03/02/19); 242#/110 kg (03/01/19); 249#/113 kg (02/28/19). ESTIMATED NUTRITIONAL REQUIREMENTS CALORIES/DAY: 6158-7201 kcal/day (MSJ x 1-1.2 CBW d/t obesity, maintenance) PROTEIN/DAY: 118-176 gm/day (1.2-1.5 gm/kg Adj IBW for obesity, COPD) FLUID/DAY: Per physician d/t Hx of CHF PES 1. Morbid Obesity r/t inability to access healthier food choices AEB possible consumption of high calorie food and beverage from fast food restaurants and convenient stores, homelessness, and BMI 40 kg/m2. *no longer applicable 2. Inadequate nutrient intake r/t medication intake AEB PO intake not meeting 75% of estimated needs and nursing staff report. *ongoing 3. Unintentional wt loss related to possible lean muscle mass depletion as evidenced by possible 47#/15% wt change within 1 month. *ongoing 4. Inadequate EN support related to critical illness as evidenced by no currently infusing nutrition support. *resolved 5. Inadequate EN support r/t increased caloric needs AEB current EN regimen provides <75% of estimated calorie needs. *improved I: 1. Recommend continuing cardiac diet w/ Ensure Enlive TID w/ Ok BID (1230 kcal/day, 65 gm protein/day) 2. Collect pt daily menu preferences to ensure optimal nutrition. M: Monitor appetite and PO intake w/ goal of pt meeting at least 85% of estimated nutritional needs, labs trending WNL, normal GI function, skin integrity/wt maintenance. E: Low Risk; F/U within 7 days Signed: 03/20/19 at 1531 by Mena VELASCO <Co-Signature Required> Co-Signed: 03/20/19 at [address]
--- NOTE | 2019-03-20 15:57 | NUR ---
seroquel 2 tablets given po with orange juice
--- NOTE | 2019-03-20 16:31 | NUR ---
patient sleeping and resting. wants extra blanket given.
--- NOTE | 2019-03-20 17:59 | NUR ---
eating his dinner tray.
--- NOTE | 2019-03-20 18:02 | NUR ---
requested a coke drink from the kitchen.
[2019-03-20 20:00] VITALS: BP_SYST 111
--- NOTE | 2019-03-20 20:00 | NUR ---
Patient was resting in bed. Patient is AOOx4. Patient denies chest pain and discomfort. No respiratory distress noted. Fall and safety precautions are in place. Patient's room is across from nursing station. Call light is with patient. Patient's urinal within reach. Bed is in the lowest and locked position. Instructed patient to call for assistance, and patient verbalized understanding.
[2019-03-20] MEDS: QUEtiapine FUMARATE 200 MG TAB.SR.24H PO SCH (20:55)
--- NOTE | 2019-03-20 20:55 | NUR ---
HS medications given and pt declined bed alarm. 2 boxes of orange juice, 2 cups vanilla pudding and 2 packets of saltine crackers given to pt per his request. Call light is with pt and bed is in the lowest and locked positions. Pt was instructed to call for assistance as needed and pt verbalized understanding.
--- NOTE | 2019-03-20 22:49 | NUR ---
Pt is sleeping without any distress noted. Fall and safety precautions are in place.
--- NOTE | 2019-03-21 | NUR ---
Patient was resting comfortably with no signs of pain or distress. Patient's bed is in the lowest position and locked. Patient has call light. Fall and safety precautions are in place.
--- NOTE | 2019-03-21 02:00 | NUR ---
Pt is sleeping comfortably in bed without any respiratory distress noted. Call light is with pt and bed is in the lowet and locked positions.
--- NOTE | 2019-03-21 04:00 | NUR ---
Pt is sleeping without any distress noted. Fall and safety precautions are in place.
--- NOTE | 2019-03-21 06:30 | NUR ---
Pt is sleeping without any distress noted. All pt's needs were attended to. Fall and safety precautions are in place. Will endorse to day shift nurse.
--- NOTE | 2019-03-21 07:30 | NUR ---
MIRIAM INITIAL NOTES RECEIVED PATIENT IN BED ASLEEP AND WHEN NAME WAS CALLED HE SAID RIGHT AWAY DONT DEMETRIER ME IM OK AND CLOSED HIS EYES RIGHT AWAY Addendum: 03/21/19 at 0912 by Lea Worthy RN [phone] PATIENT WOKE UP AND GREETED OFFERED HIS BREAKFAST AND HE AGREED AND TOOK HIS MEDS RESP EVEN AND UNLABORED AND ATE WELL
[2019-03-21] MEDS: DIPHENHYDRAMINE HCL 25 MG CAPSULE PO SCH ×2 (08:40→21:34)
[2019-03-21] MEDS: DIGOXIN 0.125 MG TABLET PO SCH (08:40)
[2019-03-21] MEDS: CHOLECALCIFEROL (VITAMIN D3) 2,000 UNIT TABLET NG SCH (08:41)
[2019-03-21] MEDS: CARVEDILOL 6.25 MG TABLET (COREG) GT SCH ×2 (08:41→21:35)
[2019-03-21] MEDS: FUROSEMIDE 40 MG TABLET PO SCH (08:43)
[2019-03-21] MEDS: QUEtiapine FUMARATE 100 MG TABLET PO SCH ×3 (08:45→17:52)
[2019-03-21] MEDS: VITAMIN B COMPLEX 1 CAP/TAB NG SCH (08:46)
[2019-03-21] MEDS: PANTOPRAZOLE SODIUM 40 MG TAB PO SCH (08:46)
[2019-03-21] MEDS: MULTIVITS,CA,MINERALS/IRON/FA 1 TABLET NG SCH (08:46)
[2019-03-21 10:00] VITALS: BP_SYST 119
--- NOTE | 2019-03-21 10:30 | NUR ---
ASLEEP NO DISTRESS
[2019-03-21 10:48] VITALS: BP_SYST 119
--- NOTE | 2019-03-21 11:53 | NUR ---
GI consult called: for Dr. Miller, regarding GT removal, ordered by Dr. Pelaez , spoke with Julianne.
--- NOTE | 2019-03-21 12:30 | NUR ---
EATING PATIENT EATING NO DISTRESS
[2019-03-21 12:35] VITALS: BP_SYST 120
--- NOTE | 2019-03-21 12:43 | NUR ---
Psychiatric consult called: for Dr. Barros, regarding decision making ability, ordered by Dr. Pelaez, spoke with Petey. Face sheet faxed to office of Dr. Barros ([phone])
--- NOTE | 2019-03-21 13:20 | NUR ---
Social Service Note: LOCOMOTIVE INSPECTOR placed call to [facility] ([phone]) spoke to Afshan who stated that they have no male beds at this time.
--- NOTE | 2019-03-21 14:00 | NUR ---
ROUNDS PATIENT NOT IN ANY DISTRESS NO FACIAL GRIMAC3
[2019-03-21 15:04] VITALS: BP_SYST 111
--- NOTE | 2019-03-21 16:00 | NUR ---
PATIENT ROUNDS PATIENT SLEEPING AND NO DISTRESS
--- NOTE | 2019-03-21 19:00 | NUR ---
ENDORSEMENT PATIENT REMAINED CALM AND NO COMPLAIN OF PAIN AND STILL FOR PLACEMENT , NO FURTHER ORDER DONE TODAY AND PATIENT COOPERATES WITH CARE
[2019-03-21] MEDS: IPRATROPIUM/ALBUTEROL SULFATE 3 ML AMPUL.NEB (DUONEB) INH PRN (19:51)
[2019-03-21 20:00] VITALS: BP_SYST 113
[2019-03-21] MEDS: QUEtiapine FUMARATE 200 MG TAB.SR.24H PO SCH (21:34)
[2019-03-22 00:47] VITALS: BP_SYST 103
--- NOTE | 2019-03-22 08:00 | NUR ---
Pt asleep, does not want to be disturbed at this time. breathing even and unlabored. will cont to monitor.
--- NOTE | 2019-03-22 10:00 | NUR ---
Opening notes, Received pt in bed, pt is aaox3, denies pain, no sob, no respiratory distress. safety precaution in place , call light in reach. bed in low position. encouraged to call for assist and pain meds. will cont to monitor.
[2019-03-22 10:18] VITALS: BP_SYST 120
[2019-03-22] MEDS: VITAMIN B COMPLEX 1 CAP/TAB NG SCH (10:20)
[2019-03-22] MEDS: CHOLECALCIFEROL (VITAMIN D3) 2,000 UNIT TABLET NG SCH (10:21)
[2019-03-22] MEDS: MULTIVITS,CA,MINERALS/IRON/FA 1 TABLET NG SCH (10:22)
[2019-03-22] MEDS: PANTOPRAZOLE SODIUM 40 MG TAB PO SCH (10:22)
[2019-03-22] MEDS: QUEtiapine FUMARATE 100 MG TABLET PO SCH ×3 (10:22→17:33)
[2019-03-22] MEDS: CARVEDILOL 6.25 MG TABLET (COREG) GT SCH ×2 (10:23→21:00)
[2019-03-22] MEDS: DIPHENHYDRAMINE HCL 25 MG CAPSULE PO SCH ×2 (10:23→21:28)
[2019-03-22] MEDS: DIGOXIN 0.125 MG TABLET PO SCH (10:24)
[2019-03-22] MEDS: FUROSEMIDE 40 MG TABLET PO SCH (10:26)
--- NOTE | 2019-03-22 10:49 | NUR ---
PHYSICAL THERAPY CO-SIGN The Physical Therapy Progress Notes documented by Oyster Preparer have been reviewed. Reviewed/Co-Signed by: Damian Salas PT Documentation Done by: ELANA EVANS PTA Addendum: 03/22/19 at 1050 by Damian Salas PT Amended: Links added.
--- NOTE | 2019-03-22 10:49 | NUR ---
PT PHYSICAL THERAPY CO-SIGN The Physical Therapy Progress Notes documented by Veterinarian Small Animal have been reviewed. Reviewed/Co-Signed by: Damian Salas PT Documentation Done by: ELANA EVANS PTA Addendum: 03/22/19 at 1050 by Damian Salas PT Amended: Links added.
[2019-03-22 11:29] VITALS: BP_SYST 128
--- NOTE | 2019-03-22 12:07 | NUR ---
PT C/O OF NUMBNESS ON LEFT ARM WHICH PT STATED STARTED 3 AM TODAY, DR KEARNS MADE AWARE NO NEW ORDER.
[2019-03-22] MEDS: IPRATROPIUM/ALBUTEROL SULFATE 3 ML AMPUL.NEB (DUONEB) INH PRN ×2 (15:43→19:27)
[2019-03-22 15:44] VITALS: BP_SYST 101
--- NOTE | 2019-03-22 19:30 | NUR ---
OPENING NOTES RECEIVED REPORT. PATIENT IS RESTING IN BED, REQUESTING BREATHING TREATMENT. RT HAS BEEN CALLED. NO SIGNS OF DISTRESS NOTED. BREATHING EVEN AND UNLABORED. G-TUBE IS IN PLACE. NO OTHER NEEDS AT THIS TIME. CALL LIGHT WITH THE PATIENT. SAFETY PRECAUTIONS IN PLACE.
--- NOTE | 2019-03-22 19:48 | NUR ---
CLOSING NOTES, PT HAS BEEN STABLE, NO C/O OF PAIN, NO MORE C/O OF NUMBNESS ON THE LEFT ARM. ENDORSED TO NIGHT NURSE.
[2019-03-22] MEDS: QUEtiapine FUMARATE 200 MG TAB.SR.24H PO SCH (21:28)
--- NOTE | 2019-03-22 22:00 | NUR ---
MEDICATIONS GIVEN. EDUCATED THE ACTION AND SIDE EFFECTS OF MEDICATIONS. PATIENT VERBALIZED UNDERSTANDING AND TOLERATED WELL. NO SIGNS OF ALLERGIC REACTION NOTED. NO OTHER NEEDS AT THIS TIME. CALL LIGHT WITH THE PATIENT. SAFETY PRECAUTIONS IN PLACE.
[2019-03-22 22:28] VITALS: BP_SYST 107
--- NOTE | 2019-03-23 | NUR ---
Sleeping Patient sleeping. VSS. No signs of distress noted. Breathing even and unlabored. Call light with the patient. Safety precautions in place.
[2019-03-23 00:08] VITALS: BP_SYST 128
--- NOTE | 2019-03-23 02:09 | NUR ---
Sleeping No signs of distress noted. Breathing even and unlabored. No needs at this time. Call light with the patient. Safety precautions in place.
--- NOTE | 2019-03-23 04:30 | NUR ---
Sleeping No signs of distress noted. Breathing even and unlabored. No needs. Call light with the patient. Safety precautions in place.
--- NOTE | 2019-03-23 06:40 | NUR ---
Closing notes Patient asleep at this time. No signs of distress noted. Breathing even and unlabored. No complaints of pain. All needs met throughout the shift. Call light with the patient. Safety precautions in place. Will endorse care to day shift RN.
--- NOTE | 2019-03-23 08:00 | NUR ---
AM rounds: Received patient asleep. Breathing is unlabored. safety precautions observed. Call light within reach.
[2019-03-23 09:00] VITALS: BP_SYST 113
--- NOTE | 2019-03-23 09:00 | NUR ---
Care assumed. Patient is asleep, but easily arousable. POC is instructed. will continue to monitor.
[2019-03-23] MEDS: PANTOPRAZOLE SODIUM 40 MG TAB PO SCH (09:28)
[2019-03-23] MEDS: QUEtiapine FUMARATE 100 MG TABLET PO SCH ×3 (09:29→17:44)
[2019-03-23] MEDS: FUROSEMIDE 40 MG TABLET PO SCH (09:29)
[2019-03-23] MEDS: CHOLECALCIFEROL (VITAMIN D3) 2,000 UNIT TABLET NG SCH (09:30)
[2019-03-23] MEDS: DIGOXIN 0.125 MG TABLET PO SCH (09:30)
[2019-03-23] MEDS: MULTIVITS,CA,MINERALS/IRON/FA 1 TABLET NG SCH (09:30)
[2019-03-23] MEDS: CARVEDILOL 6.25 MG TABLET (COREG) GT SCH ×2 (09:31→20:16)
[2019-03-23] MEDS: DIPHENHYDRAMINE HCL 25 MG CAPSULE PO SCH ×2 (09:31→20:15)
[2019-03-23] MEDS: VITAMIN B COMPLEX 1 CAP/TAB NG SCH (09:42)
--- NOTE | 2019-03-23 11:27 | NUR ---
patient is voided 400ml of urine.
[2019-03-23 12:00] VITALS: BP_SYST 103
--- NOTE | 2019-03-23 12:48 | NUR ---
patient had lunch. Tolerated without distress.
--- NOTE | 2019-03-23 15:00 | NUR ---
patient urinates 450ml of urine.
[2019-03-23 16:00] VITALS: BP_SYST 101
--- NOTE | 2019-03-23 17:00 | NUR ---
patient is asking about his current status. coal handling supervisor is at the bedside to explain the matter.
--- NOTE | 2019-03-23 18:15 | NUR ---
Patient tolerates dinner without distress.
[2019-03-23] MEDS: IPRATROPIUM/ALBUTEROL SULFATE 3 ML AMPUL.NEB (DUONEB) INH PRN (19:08)
--- NOTE | 2019-03-23 19:20 | NUR ---
OPENING NOTES RECEIVED REPORT AT BEDSIDE. PATIENT IS RESTING IN BED AWAKE, ALERT AND ORIENTED TO THE ROOM. NO SIGNS OF DISTRESS NOTED. BREATHING EVEN AND UNLABORED. NO IV ACCESS. G-TUBE IS IN PLACE. CALL LIGHT WITH THE PATIENT. SAFETY PRECAUTIONS IN PLACE. WILL MONITOR ON ROUNDS.
[2019-03-23 20:00] VITALS: BP_SYST 109
[2019-03-23] MEDS: QUEtiapine FUMARATE 200 MG TAB.SR.24H PO SCH (20:17)
--- NOTE | 2019-03-23 22:24 | NUR ---
PATIENT IN BED ASLEEP. NO PAIN OR RESPIRATORY DISTRESS. TOLERATED ALL PO MEDICATIONS. WILL MONITOR ON ROUNDS.
--- NOTE | 2019-03-24 00:17 | NUR ---
PATIENT IN BED RESTING. NO PAIN OR RESPIRATORY DISTRESS OBSERVED.
[2019-03-24 00:25] VITALS: BP_SYST 123
--- NOTE | 2019-03-24 02:02 | NUR ---
PATIENT ASLEEP IN BED WITH NO APPEARANCE OF PAIN OR RESPIRATORY DISTRESS. SAFETY PRECAUTIONS IN PLACE AND WILL CONTINUE TO MONITOR ON ROUNDS.
--- NOTE | 2019-03-24 04:17 | NUR ---
NO CHANGE IN CONDITION FROM PREVIOUS ROUNDS.
--- NOTE | 2019-03-24 06:41 | NUR ---
CLOSING NOTES PATIENT IN BED SLEEPING WITH NO APPEARANCE OF PAIN OR RESPIRATORY DISTRESS. NO IV SITE. SAFETY INTERVENTIONS BEING MAINTAINED. ALL NEEDS MET AND WILL ENDORSE CARE TO ONCOMING SHIFT.
--- NOTE | 2019-03-24 08:14 | NUR ---
Opening note patient is a/ox4, denies pain, patient asking to sleep longer and for vital signs and assessment to be done later, he wants to sleep, no signs of distress, continuing to monitor patient, patient bed in lowest position, two side rails up, bed close to nursing station, call light within reach, fall and aspiration precautions in place.
[2019-03-24] MEDS: MULTIVITS,CA,MINERALS/IRON/FA 1 TABLET NG SCH (09:33)
[2019-03-24] MEDS: DIGOXIN 0.125 MG TABLET PO SCH (09:33)
[2019-03-24] MEDS: CARVEDILOL 6.25 MG TABLET (COREG) GT SCH ×2 (09:33→20:55)
[2019-03-24] MEDS: PANTOPRAZOLE SODIUM 40 MG TAB PO SCH (09:33)
[2019-03-24] MEDS: DIPHENHYDRAMINE HCL 25 MG CAPSULE PO SCH ×2 (09:34→20:56)
[2019-03-24] MEDS: CHOLECALCIFEROL (VITAMIN D3) 2,000 UNIT TABLET NG SCH (09:34)
[2019-03-24] MEDS: FUROSEMIDE 40 MG TABLET PO SCH (09:34)
[2019-03-24] MEDS: VITAMIN B COMPLEX 1 CAP/TAB NG SCH (09:34)
[2019-03-24] MEDS: QUEtiapine FUMARATE 100 MG TABLET PO SCH ×3 (09:37→17:07)
[2019-03-24] MEDS: IPRATROPIUM/ALBUTEROL SULFATE 3 ML AMPUL.NEB (DUONEB) INH PRN ×3 (09:39→20:13)
[2019-03-24 09:40] VITALS: BP_SYST 118
--- NOTE | 2019-03-24 09:41 | NUR ---
Medication patient resting in bed, agreed to have vital signs taken, assessment complete, educated on morning medications uses and potential side effects, he verbalized understanding and tolerated well, patient requested breathing treatment, called RT, RT at bedside, patient tolerating breathing treatment well, continuing to monitor the patient, bed in lowest position, two side rails up, bed close to nursing station, call light within reach, fall and aspiration precautions in place.
[2019-03-24 10:29] VITALS: BP_SYST 118
--- NOTE | 2019-03-24 11:41 | NUR ---
Transfer of Care to Maegan PINEDA at this time, patient is in stable condition.
--- NOTE | 2019-03-24 11:45 | NUR ---
ASSUMPTION OF CARE: RECEIVED ENDORSEMENT OF PT FROM NURSE AURE RN, PT IS A/A/OX4, NO DISTRESS, NO C/O PAIN, CONDITION IS STABLE, WILL CONT' TO MONITOR AND ASSESS, WILL CONT' WITH POC.
[2019-03-24 12:57] VITALS: BP_SYST 120
--- NOTE | 2019-03-24 14:00 | NUR ---
NURSES NOTES: PT SLEEPING, NO DISTRESS, NO INDICATION OF PAIN OR DISCOMFORT, REMAINS STABLE AT THIS TIME, CALL LIGHT PLACED WITHIN REACH, WILL CONT' WITH POC.
--- NOTE | 2019-03-24 16:15 | NUR ---
VISIT: AT BEDSIDE FOR ASSESSMENT OF PT, DISCUSSED POC, PT VERBALIZES UNDERSTANDING, NEW ORDERS GIVEN, WILL CONT' TO MONITOR AND ASSESS
--- NOTE | 2019-03-24 16:18 | NUR ---
MICHAEL CALLED MICHAEL TEL. NO. [phone] SO DR KEARNS CAN TALK TO HER PER MICHAEL'S REQUEST. NO ANSWER FROM THE PHONE PROVIDED. MAIL BOX IS FULL AND CANNOT LEAVE A MESSAGE
--- NOTE | 2019-03-24 16:45 | NUR ---
VISIT: AT BEDSIDE FOR ASSESSMENT OF PT, DISCUSSED POC, PT VERBALIZES UNDERSTANDING, WILL CONT' TO MONITOR AND ASSESS.
[2019-03-24 16:46] VITALS: BP_SYST 126
[2019-03-24 20:00] VITALS: BP_SYST 112
--- NOTE | 2019-03-24 20:00 | NUR ---
ASSUMED CARE. RECEIVED ALERT,ORIENTED,WATCHING TV. AFEBRILE, NOT IN ACUTE DISTRESS. NO PAIN OR DISCOMFORT NOTED. NO IV ACCESS. MD AWARE. SAO2=96% ON ROOM AIR. VS STAB;E,WILL CONTINUE TO MONITOR. NEEDS ATTENDED.
[2019-03-24] MEDS: QUEtiapine FUMARATE 200 MG TAB.SR.24H PO SCH (20:59)
--- NOTE | 2019-03-24 20:59 | NUR ---
ALL DUE MEDICATIONS GIVEN SCHEDULED.
--- NOTE | 2019-03-25 | NUR ---
ASLEEP, NOT IN ANY KIND OF DISTRESS. NO PAIN OR DISCOMFORT NOTED. SIDE RAILS UP, CALL LIGHT WITHIN REACH. KEPT WARM AND COMFORTABLE.
[2019-03-25 01:34] VITALS: BP_SYST 107
--- NOTE | 2019-03-25 04:00 | NUR ---
ASLEEP, NO SIGNIFICANT CHANGE. REMAINS STABLE AND PAIN FREE. WILL CONTINUE TO MONITOR.
[2019-03-25 06:58] LABS: BASOPHILS # (AUTO) 0.2 K/uL (0.0-0.2); BASOPHILS % (AUTO) 2.1 % (0.0-2.0); EOSINOPHILS # (AUTO) 0.4 K/uL (0.0-0.4); EOSINOPHILS % (AUTO) 5.2 % (0.0-4.0); HEMATOCRIT 31.1 % (36-54); HEMOGLOBIN 10.4 g/dL (14.0-18.0); LYMPHOCYTES # (AUTO) 1.5 K/uL (1.0-5.5); LYMPHOCYTES % (AUTO) 19.7 % (20.5-51.5); MEAN CORPUSCULAR HEMOGLOBIN 29 pg (27-31); MEAN CORPUSCULAR HGB CONC 33 % (32-36); MEAN CORPUSCULAR VOLUME 85 fL (79.0-98.0); MONOCYTES # (AUTO) 0.7 K/uL (0.0-1.0); MONOCYTES % (AUTO) 9.3 % (1.7-9.3); NEUTROPHILS # (AUTO) 4.9 K/uL (1.8-7.7); NEUTROPHILS % (AUTO) 63.7 % (40.0-70.0); PLATELET COUNT (AUTO) 349 K/uL (130-430); RED BLOOD CELL COUNT(AUTO) 3.65 MIL/uL (4.2-6.2); RED CELL DISTRIBUTION WIDTH 20.5 % (9.0-15.0); WHITE BLOOD COUNT (AUTO) 7.7 K/uL (4.8-10.8)
[2019-03-25 07:06] LABS: ALBUMIN 3.1 g/dL (3.4-4.8); CALCIUM 9.1 mg/dL (8.4-11.0); CREATININE 1.11 mg/dL (0.55-1.30); DIGOXIN 0.5 ng/mL (0.80-2.00); POTASSIUM 3.6 mmol/L (3.5-5.1); TOTAL BILIRUBIN 0.5 mg/dL (0.0-1.0)
--- NOTE | 2019-03-25 07:17 | NUR ---
ENDORSED CARE TO MÓNICA COLINDRES.
--- NOTE | 2019-03-25 07:40 | NUR ---
opening note patient is resting in bed, no signs of distress at this time, educated furniture salesperson light system and plan of care, patient stated "okay" to me, no IV access at this time and MD is aware of this, no other needs addressed at this time, fall/safety precautions in place, patient is NPO at this time for procedure to remove G tube.
[2019-03-25 08:00] VITALS: BP_SYST 124
--- NOTE | 2019-03-25 09:27 | NUR ---
rounds patient is resting in bed, eyes closed breathing easy and nonlabored, no signs of distress, no needs addressed at this time, fall/safety precautions in place.
[2019-03-25] MEDS: QUEtiapine FUMARATE 100 MG TABLET PO SCH ×3 (09:35→17:10)
--- NOTE | 2019-03-25 10:20 | NUR ---
PT note Patient refusing therapy at this time; nursing made aware.
[2019-03-25] MEDS: PANTOPRAZOLE SODIUM 40 MG TAB PO SCH (10:31)
[2019-03-25] MEDS: VITAMIN B COMPLEX 1 CAP/TAB NG SCH (10:31)
[2019-03-25] MEDS: CHOLECALCIFEROL (VITAMIN D3) 2,000 UNIT TABLET NG SCH (10:32)
[2019-03-25] MEDS: CARVEDILOL 6.25 MG TABLET (COREG) GT SCH ×2 (10:32→21:48)
[2019-03-25] MEDS: MULTIVITS,CA,MINERALS/IRON/FA 1 TABLET NG SCH (10:32)
[2019-03-25] MEDS: DIPHENHYDRAMINE HCL 25 MG CAPSULE PO SCH ×2 (10:32→21:48)
[2019-03-25] MEDS: DIGOXIN 0.125 MG TABLET PO SCH (10:33)
[2019-03-25] MEDS: FUROSEMIDE 40 MG TABLET PO SCH (10:33)
--- NOTE | 2019-03-25 10:45 | NUR ---
DR MA AT BEDSIDE removed g-tube, patient tolerated well, he said any dressing to cover site is okay.
--- NOTE | 2019-03-25 11:46 | NUR ---
scheduled medication patient is resting in bed, educated on medication use and side effects, patient verbalized understanding, no other needs at this time, fall/safety precautions in place.
[2019-03-25 12:40] VITALS: BP_SYST 126
--- NOTE | 2019-03-25 13:30 | NUR ---
rounds patient is resting in bed, patient requested for me to change dressing again because it was soiled, no other needs at this time, fall/safety precautions in place.
--- NOTE | 2019-03-25 15:29 | NUR ---
patient resting in bed no signs of distress at this time, no needs addressed at this time, fall/safety precautions in place.
[2019-03-25 16:22] VITALS: BP_SYST 119
[2019-03-25] MEDS: IPRATROPIUM/ALBUTEROL SULFATE 3 ML AMPUL.NEB (DUONEB) INH PRN ×2 (16:38→19:44)
--- NOTE | 2019-03-25 19:15 | NUR ---
closing note patient is resting in bed, no IV access and MD is aware, g-tube was removed, dressing change prn soilage, no other needs at this time, fall/safety precautions in place, will endorse report to noc shift nurse to continue with care, breathing tx are prn.
--- NOTE | 2019-03-25 19:30 | NUR ---
Opening Note Received patient awake, resting in bed. No s/sx of distress, nonlabored breathing on room air. No IV site and informed on report MD aware. Bed is locked in lowest position, and call light w/in reach. Patient refused bed alarm.
[2019-03-25 20:00] VITALS: BP_SYST 122
--- NOTE | 2019-03-25 20:00 | NUR ---
ASSUMED CARE. RECEIVED ALERT,ORIENTED. AFEBRILE, NOT IN ACUTE DISTRESS. DENIES ANY PAIN OR DISCOMFORT. NO IV ACCESS. MD AWARE. G-TUBE DISCONTINUED BY G.I. DOCTOR TODAY. DRESSING TO SITE CLEAN,DRY AND INTACT. SAO2=94% ON ROOM AIR. VS STABLE, WILL CONTINUE TO MONITOR. NEEDS ATTENDED.
[2019-03-25] MEDS: QUEtiapine FUMARATE 200 MG TAB.SR.24H PO SCH (21:49)
--- NOTE | 2019-03-25 21:49 | NUR ---
DUE MEDICATIONS GIVEN.
[2019-03-26] VITALS: BP_SYST 116
--- NOTE | 2019-03-26 | NUR ---
SLEEPING COMFORTABLY, NOT IN ANY KIND OF DISTRESS. NO PAIN OR DISCOMFORT NOTED. SIDE RAILS UP, CALL LIGHT WITHIN REACH. KEPT WARM AND COMFORTABLE. VS REMAIN STABLE. WILL CONTINUE TO MONITOR.
[2019-03-26 02:14] VITALS: BP_SYST 110
--- NOTE | 2019-03-26 04:00 | NUR ---
ASLEEP, NO CHANGE IN CONDITION. REMAINS STABLE AND PAIN FREE.
--- NOTE | 2019-03-26 07:08 | NUR ---
ENDORSED CARE TO MÓNICA COLINDRES.
--- NOTE | 2019-03-26 07:40 | NUR ---
opening note patient is resting in bed, no signs of distress at this time, educated provider relations coordinator light system and plan of care, patient stated "okay" to me, no IV access at this time and MD is aware of this, no other needs addressed at this time, fall/safety precautions in place.
[2019-03-26 08:06] VITALS: BP_SYST 143
[2019-03-26] MEDS: MULTIVITS,CA,MINERALS/IRON/FA 1 TABLET NG SCH (08:51)
[2019-03-26] MEDS: PANTOPRAZOLE SODIUM 40 MG TAB PO SCH (08:51)
[2019-03-26] MEDS: CHOLECALCIFEROL (VITAMIN D3) 2,000 UNIT TABLET NG SCH (08:51)
[2019-03-26] MEDS: FUROSEMIDE 40 MG TABLET PO SCH (08:51)
[2019-03-26] MEDS: QUEtiapine FUMARATE 100 MG TABLET PO SCH ×3 (08:51→17:08)
[2019-03-26] MEDS: DIGOXIN 0.125 MG TABLET PO SCH (08:51)
[2019-03-26] MEDS: DIPHENHYDRAMINE HCL 25 MG CAPSULE PO SCH ×2 (08:51→21:00)
[2019-03-26] MEDS: VITAMIN B COMPLEX 1 CAP/TAB NG SCH (08:51)
[2019-03-26] MEDS: CARVEDILOL 6.25 MG TABLET (COREG) GT SCH ×2 (08:52→21:00)
--- NOTE | 2019-03-26 09:33 | NUR ---
patient refused PT patient refused to walk with PT at this time, he stated that he was too tired and just wants to be in bed all day, educated him on the importance of walking around and not staying in bed all day, he verbalized understanding but he still did not want to walk.
--- NOTE | 2019-03-26 12:18 | NUR ---
scheduled medication patient is resting in bed eating his lunch, educated on medication use and side effects, patient verbalized understanding, no other needs at this time, fall/safety precautions in place.
[2019-03-26 12:22] VITALS: BP_SYST 124
--- NOTE | 2019-03-26 14:46 | NUR ---
patient going to take shower patient is going to take a shower, patient is in stable condition at this time, denies any SOB or dizziness, using walker to walk to the bathroom.
[2019-03-26 16:01] VITALS: BP_SYST 118
--- NOTE | 2019-03-26 16:15 | NUR ---
patient resting in bed watching tv, no signs of distress at this time, no needs addressed at this time, fall/safety precautions in place.
--- NOTE | 2019-03-26 18:41 | NUR ---
closing note patient is resting in bed, no IV access and MD is aware, patient refused to have dressing where g tube was, no drainage noted at the site, no other needs at this time, fall/safety precautions in place, will endorse report to noc shift nurse to continue with care, breathing treatments are prn, patient ambulates with walker.
--- NOTE | 2019-03-26 19:30 | NUR ---
Patient was received sleeping in bed. No respiratory distress noted. Fall and safety precautions are in place. Patient's room is across from nursing station. Call light is with patient. Patient's urinal is within his reach. Bed is in the lowest and locked positions.
--- NOTE | 2019-03-26 20:00 | NUR ---
Patient is awake. Patient refused vital signs. No distress noted. Fall and safety precautions are in place.
[2019-03-26] MEDS: QUEtiapine FUMARATE 200 MG TAB.SR.24H PO SCH (21:00)
--- NOTE | 2019-03-26 21:04 | NUR ---
Patient is refusing medications at this time. Patient also refused vital signs. No distress noted. Fall and safety precautions are in place.
--- NOTE | 2019-03-26 22:27 | NUR ---
Patient refused HS medications. Patient stated, "Stop waking me up." No respiratory distress noted. Call light is with patient. Bed is in the lowest and locked positions.
--- NOTE | 2019-03-27 | NUR ---
Patient still declining vital sign checks and HS medications. No respiratory distress noted. Fall and safety precautions are in place.
--- NOTE | 2019-03-27 02:00 | NUR ---
Patient is sleeping with no s/s of distress. Fall and safety precautions are in place. Patient has call light, patient's bed is in the lowest and locked position.
--- NOTE | 2019-03-27 06:15 | NUR ---
Closing Note: Patient is resting in bed, no signs of distress at this time. Fall and safety precautions are in place. The call light is with the patient. Will endorse to dayshift nurse.
--- NOTE | 2019-03-27 07:45 | NUR ---
opening note patient is resting in bed, no signs of distress at this time, educated composite bond technician light system and plan of care, patient verbalized understanding, no IV access at this time and MD is aware of this, no other needs addressed at this time, fall/safety precautions in place.
[2019-03-27 08:00] VITALS: BP_SYST 149
[2019-03-27] MEDS: PANTOPRAZOLE SODIUM 40 MG TAB PO SCH (09:13)
[2019-03-27] MEDS: VITAMIN B COMPLEX 1 CAP/TAB NG SCH (09:14)
[2019-03-27] MEDS: QUEtiapine FUMARATE 100 MG TABLET PO SCH ×3 (09:14→17:04)
[2019-03-27] MEDS: MULTIVITS,CA,MINERALS/IRON/FA 1 TABLET NG SCH (09:14)
[2019-03-27] MEDS: DIPHENHYDRAMINE HCL 25 MG CAPSULE PO SCH ×2 (09:14→20:31)
[2019-03-27] MEDS: CARVEDILOL 6.25 MG TABLET (COREG) GT SCH ×2 (09:14→20:31)
[2019-03-27] MEDS: FUROSEMIDE 40 MG TABLET PO SCH (09:15)
[2019-03-27] MEDS: CHOLECALCIFEROL (VITAMIN D3) 2,000 UNIT TABLET NG SCH (09:15)
[2019-03-27] MEDS: DIGOXIN 0.125 MG TABLET PO SCH (09:15)
[2019-03-27 09:30] VITALS: BP_SYST 149
[2019-03-27] MEDS: IPRATROPIUM/ALBUTEROL SULFATE 3 ML AMPUL.NEB (DUONEB) INH PRN ×2 (09:32→19:46)
--- NOTE | 2019-03-27 09:55 | NUR ---
patient is resting in bed patient resting in bed, no signs of distress at this time, patient requested for me to order him a soda and sandwich, no other needs at this time, fall/safety precautions in place.[id number]
[2019-03-27 12:06] VITALS: BP_SYST 114
--- NOTE | 2019-03-27 13:36 | NUR ---
patient is resting in bed patient resting in bed, no signs of distress at this time, no other needs at this time, fall/safety precautions in place.
--- NOTE | 2019-03-27 15:24 | NUR ---
skin care patient requested for me to gently rinsed with normal saline the sites where his g tube and trach were, no drainage were noted in either site, no dressing on it per patient request, no other needs at this time, fall/safety precautions in place.
[2019-03-27 16:07] VITALS: BP_SYST 115
--- NOTE | 2019-03-27 16:20 | NUR ---
Dietitian Recommendations Nutrition F/U RD reviewed pt's current EMR including diet Hx, physician notes, nursing notes, pertinent labs/meds/procedures, care trends, and care activity. Current Diet Order: Cardiac diet w/ Ensure Enlive TID, Ok BID x2 days Subjective information: Pt was seen resting in bed. Pt reported a good appetite but was not enjoying the food. Pt stated no issues with N/V/D/C. DI encourage pt to continue PO intake and Ok BID for lean body mass preservation. Per EMR, PO intake records indicate 84% x6 meals since last Nutrition F/U; Rich scale of 21, medial upper abdomen has old G-tube site, pt refused assessment of site, 03/27. RN reported D/C placement is pending. Pts needs were recalculated based on wt change. NEW ABW 207 lb/94 kg. Recent wt Hx reveals some wt fluctuations possibly r/t Hx of CHF: 238.7#/ 109kg (03/27/19); 246#/112 kg (03/15/19); 255#/115 kg (03/03/19); 246#/112 kg (03/02/19); 242#/110 kg (03/01/19); 249#/113 kg (02/28/19). UPDATED: ESTIMATED NUTRITIONAL REQUIREMENTS CALORIES/DAY: 9692-5967 kcal/day (MSJ x 1-1.2 CBW d/t obesity, maintenance) NEW PROTEIN/DAY: 113-141 gm/day (1.2-1.5 gm/kg Adj IBW for obesity, COPD) FLUID/DAY: Per physician d/t Hx of CHF PES 1. Morbid Obesity r/t inability to access healthier food choices AEB possible consumption of high calorie food and beverage from fast food restaurants and convenient stores, homelessness, and BMI 40 kg/m2. *no longer applicable 2. Inadequate nutrient intake r/t medication intake AEB PO intake not meeting 75% of estimated needs and nursing staff report. *ongoing 3. Unintentional wt loss related to possible lean muscle mass depletion as evidenced by possible 47#/15% wt change within 1 month. *ongoing 4. Inadequate EN support related to critical illness as evidenced by no currently infusing nutrition support. *resolved 5. Inadequate EN support r/t increased caloric needs AEB current EN regimen provides <75% of estimated calorie needs. *improved I: 1. Recommend continuing cardiac diet w/ Ensure Enlive TID w/ Ok BID (1230 kcal/day, 65 gm protein/day) 2. Collect pt daily menu preferences to ensure optimal nutrition. M: Monitor appetite and PO intake w/ goal of pt meeting at least 85% of estimated nutritional needs, labs trending WNL, normal GI function, skin integrity/wt maintenance. E: Low Risk; F/U within 7 days Signed: 03/27/19 at 1620 by Mena VELASCO <Co-Signature Required> Co-Signed: 03/27/19 at [address]
--- NOTE | 2019-03-27 19:30 | NUR ---
Opening notes Received report. Patient sitting up in bed. No sign of distress noted. Breathing even and unlabored. No IV access. Call RT for breathing treatment per patient request. No other needs at this time. Call light with the patient. Safety precautions in place.
[2019-03-27 20:30] VITALS: BP_SYST 125
[2019-03-27] MEDS: QUEtiapine FUMARATE 200 MG TAB.SR.24H PO SCH (20:31)
--- NOTE | 2019-03-27 21:30 | NUR ---
Medications given. Educated the action and side effects of medications. Patient verbalized understanding and tolerated well. Updated patient on plan of care. No other needs. Call light with the patient. Safety precautions in place.
--- NOTE | 2019-03-27 23:45 | NUR ---
Resting Patient resting in bed, watching TV. No signs of distress noted. Breathing even and unlabored. Call light with the patient. Safety precautions in place.
[2019-03-28 00:09] VITALS: BP_SYST 121
--- NOTE | 2019-03-28 02:00 | NUR ---
Sleeping No signs of distress noted. Breathing even and unlabored. Call light with the patient. Safety precautions in place.
--- NOTE | 2019-03-28 04:24 | NUR ---
Sleeping No signs of distress noted. Breathing even and unlabored. Call light with the patient. Safety precautions in place.
--- NOTE | 2019-03-28 06:44 | NUR ---
Closing notes Patient sleeping. No signs of distress noted. Breathing even and unlabored. No complaints of pain. All needs met throughout the shift. Call light with the patient. Safety precautions in place. Will endorse care to day shift RN.
[2019-03-28 08:00] VITALS: BP_SYST 132
[2019-03-28] MEDS: QUEtiapine FUMARATE 100 MG TABLET PO SCH ×3 (09:00→17:58)
[2019-03-28] MEDS: CARVEDILOL 6.25 MG TABLET (COREG) GT SCH ×2 (09:09→21:00)
[2019-03-28] MEDS: VITAMIN B COMPLEX 1 CAP/TAB NG SCH (09:09)
[2019-03-28] MEDS: DIPHENHYDRAMINE HCL 25 MG CAPSULE PO SCH ×2 (09:09→21:27)
[2019-03-28] MEDS: PANTOPRAZOLE SODIUM 40 MG TAB PO SCH (09:10)
[2019-03-28] MEDS: DIGOXIN 0.125 MG TABLET PO SCH (09:10)
[2019-03-28] MEDS: FUROSEMIDE 40 MG TABLET PO SCH (09:10)
[2019-03-28] MEDS: CHOLECALCIFEROL (VITAMIN D3) 2,000 UNIT TABLET NG SCH (09:10)
[2019-03-28] MEDS: MULTIVITS,CA,MINERALS/IRON/FA 1 TABLET NG SCH (09:10)
--- NOTE | 2019-03-28 10:13 | NUR ---
initial note: Patient is alert, oriented x4, denies any pain or discomfort, just want to know when he will be leaving.
--- NOTE | 2019-03-28 10:17 | NUR ---
Marilyn round: Dr. Garcia makes round but has no now order.
[2019-03-28] MEDS: IPRATROPIUM/ALBUTEROL SULFATE 3 ML AMPUL.NEB (DUONEB) INH PRN ×2 (11:44→20:26)
--- NOTE | 2019-03-28 11:55 | NUR ---
PHYSICAL THERAPY CO-SIGN The Physical Therapy Progress Notes documented by Paving Crew Foreman have been reviewed. Reviewed/Co-Signed by: Damian Salas PT Documentation Done by: ELANA EVANS PTA Addendum: 03/28/19 at 1156 by Damian Salas PT Amended: Links added.
[2019-03-28 12:32] VITALS: BP_SYST 119
--- NOTE | 2019-03-28 12:37 | NUR ---
Social service informed: One of licensed social worker walking pass the bed, and the patient asks her about any place for him to go. The licensed social worker tells him that she will go back and check with Eun who is working on his case now.
--- NOTE | 2019-03-28 14:22 | NUR ---
Resting: Patient is sleeping comfortable, no sign of distress, refuses to be disturb.
--- NOTE | 2019-03-28 15:13 | NUR ---
Social Service/Discharge Planning Note: DENNIS spoke with Linda at the [facility] ([phone]). Linda states that the program is $250 a day and requires a 12 day minimum stay. DENNIS has reached out to Administration for approval to proceed with seeing if pt will qualify for the Recuperative Care Program. Application can be completed on the [facility] website ([email or web address] and additional information can be faxed to ([phone]), DENNIS will await input from Administration.
[2019-03-28 16:48] VITALS: BP_SYST 126
--- NOTE | 2019-03-28 18:51 | NUR ---
Closing note: Patient is stable,no sign of distress, able to rest through the shift, no any complaint. Toleration diet well.
--- NOTE | 2019-03-28 19:20 | NUR ---
Opening Note Patient awake, resting in bed, no s/sx of distress, nonlabored breathing on room air. Side rails up 2x, call light w/in reach.
[2019-03-28 20:00] VITALS: BP_SYST 116
[2019-03-28] MEDS: QUEtiapine FUMARATE 200 MG TAB.SR.24H PO SCH (21:27)
--- NOTE | 2019-03-28 21:27 | NUR ---
Medications Patient was resting in bed with eyes closed, he was arousable and agreed to take due medications. He said he does not want to be awakened anymore. He said his next medication is in the morning and wants the light out.
--- NOTE | 2019-03-28 21:50 | NUR ---
RECIEVED REPORT, A/O/X/3, RESPIRATIONS EVEN AND UNLABORED,ROOM AIR, RESTING QUIETLY IN BED WITH EYES CLOSED, EASILY AROUSED. WILL CONTINUE TO MONITOR.
--- NOTE | 2019-03-28 21:50 | NUR ---
Endorsed care SBAR report given to MIRIAM Delgado. Presently patient is resting w/ eyes closed.
--- NOTE | 2019-03-29 | NUR ---
RN ROUNDS CONTINUES TO REST QUIETLY IN BED WITH EYES CLOSED, SELF TURNS FOR COMFORT.
--- NOTE | 2019-03-29 06:20 | NUR ---
CLOSING NOTE RESTED QUIETLY DURING THE NITE, A/O/X/3, BECOMES AGITAGED WHEN WAKEN UP, NO UNUSAL EMOTIONAL OUTBURSTS NOTED, REQUIRED ENCOURAGEMENT FROM STAFF TO BE TRANSFERRED INTO ANOTHER ROOM, BUT AGREED TO TRANSFER TO ROOM 130 WITHOUT INCIDENT.VOIDED 500 ML CLEAR YELLOW URINE, RESPIRATIONS EVEN AND UNLABORED, DID NOT USE BIPAP MACHINE DURING THE NITE., WILL CONTINUE TO MONITOR FOR ANY S/S OF CHANGE IN HIS CONDITION.
[2019-03-29 08:00] VITALS: BP_SYST 120
--- NOTE | 2019-03-29 08:29 | NUR ---
RN INITIAL NOTE: RECEIVED REPORT FROM JEWEL WAXER NURSE. PT IS SLEEPING IN BED. REFUSED 0800 VITALS. RISE AND FALL OF CHEST NOTED, NO DISTRESS. NO C/O PAIN. SAFETY PRECAUTIONS IN PLACE: BED LOCKED IN LOW POSITION, ALARM ON, CALL LIGHT WITHIN REACH. WILL CONTINUE PLAN OF CARE.
--- NOTE | 2019-03-29 08:30 | NUR ---
Social Service/Discharge Planning: INSULATION HELPER has made referral to [facility]. INSULATION HELPER will follow up to see if pt will be accepted to their program.
[2019-03-29] MEDS: MULTIVITS,CA,MINERALS/IRON/FA 1 TABLET NG SCH (09:21)
[2019-03-29] MEDS: VITAMIN B COMPLEX 1 CAP/TAB NG SCH (09:21)
[2019-03-29] MEDS: DIGOXIN 0.125 MG TABLET PO SCH (09:21)
[2019-03-29] MEDS: CHOLECALCIFEROL (VITAMIN D3) 2,000 UNIT TABLET NG SCH (09:21)
[2019-03-29] MEDS: DIPHENHYDRAMINE HCL 25 MG CAPSULE PO SCH ×2 (09:22→20:46)
[2019-03-29] MEDS: CARVEDILOL 6.25 MG TABLET (COREG) GT SCH ×2 (09:22→20:46)
[2019-03-29] MEDS: PANTOPRAZOLE SODIUM 40 MG TAB PO SCH (09:22)
[2019-03-29] MEDS: FUROSEMIDE 40 MG TABLET PO SCH (09:22)
[2019-03-29] MEDS: QUEtiapine FUMARATE 100 MG TABLET PO SCH ×3 (09:23→16:46)
[2019-03-29 12:24] VITALS: BP_SYST 100
[2019-03-29 16:58] VITALS: BP_SYST 130
[2019-03-29] MEDS: IPRATROPIUM/ALBUTEROL SULFATE 3 ML AMPUL.NEB (DUONEB) INH PRN (18:53)
--- NOTE | 2019-03-29 18:55 | NUR ---
END OF SHIFT NOTE: PT REMAINED STABLE DURING SHIFT WITH NO MAJOR CHANGE IN CONDITION. PT REQUESTING BREATHING TX, RT NOTIFIED. NO C/O PAIN AT THIS TIME. WILL ENDORSE CONTINUUM OF CARE TO PRODUCT DEVELOPMENT CHEMIST NURSE.
[2019-03-29 19:00] VITALS: BP_SYST 134
--- NOTE | 2019-03-29 19:15 | NUR ---
change of shift.pt.presents quiescent affect;calm,resting.pt.receiving the hhn-treatment.respiratory status stable; unlabored. pt.presents no iv access;pt.has refused;repeatedly.md apprised.no c/o pain,nausea.general status stable,respiratory status stable. pt.utilizing the urinal.inspected;clean w/in reach of the pt.call light/telephone w./in reach of the pt.
[2019-03-29 20:00] VITALS: BP_SYST 134
--- NOTE | 2019-03-29 20:00 | NUR ---
pt.assessed.v/s assessed;values w/in normal limits.no c/o pain,nausea.i have apprised the pt.that snacks/beverages are available w/in the shift.no requests posited@this hour.pt.utilizing the urinal.i have inspected the urinal;clean,placed w/in the reach of the pt.pt.presents quiescent affect;calm,resting.pt.capable to reposition self.call light/telephone w/in reach of the pt.
[2019-03-29] MEDS: QUEtiapine FUMARATE 200 MG TAB.SR.24H PO SCH (20:46)
--- NOTE | 2019-03-29 21:00 | NUR ---
2100pmedications administered.pt.had requested crackers;saltines.i have provided the saltine crackers.no additional requests posited @this hour.i have attended to the urinal;measured/cleaned.placed w/in reach of the pt.
--- NOTE | 2019-03-29 22:00 | NUR ---
pt.assessed.pt.present quiescent affect;calm,somnolent.general status stable.respiratory status stable;unlabored.i have inspected the urinal;clean.w/in reach of the pt.pt.capable to reposition self.call light/telephone w/in reach of the pt.
--- NOTE | 2019-03-30 | NUR ---
pt.assessed.v/s assessed:darian;marshall noted the b/p values low.pt.refused to allow the placement of the b/p cuff to re-assess the b/p. zulema apprised me of the scenario.to attempt to re-assess the b/p.general status stable.respiratory status stable.unlabored. urinal inspected;clean.w/in reach of the pt.pt.capable to reposition self.call light/telephone w/in reach of the pt.
[2019-03-30 00:20] VITALS: BP_SYST 84
[2019-03-30 01:00] VITALS: BP_SYST 135
--- NOTE | 2019-03-30 01:00 | NUR ---
i have re-assessed the b/p.the b/p value is w/in normal limits.
--- NOTE | 2019-03-30 02:00 | NUR ---
pt.assessed.pt.presents quiescent affect;calm,somnolent.general status stable.respiratory status stable;unlabored. pt.capable to reposition self.call light/telephone w/in the each of the pt.
--- NOTE | 2019-03-30 04:00 | NUR ---
PT.ASSESSED.PRESENTS QUIESCENT AFFECT;CALM,SOMNOLENT.PT.CAPABLE TO REPOSITION SELF.CALL LIGHT/TELEPHONE W/IN THE REACH OF THE PT.
--- NOTE | 2019-03-30 06:50 | NUR ---
pt.assessed.pt.presents quiescent affect;calm,somnolent.general status stable.respiratory status stable;unlabored.i have weighed the pt this am: 2/t chf hx.i have inspected the urinal.measured/cleaned.pt.capable to reposition self.call light/telephone w/in reach of the pt.
--- NOTE | 2019-03-30 07:30 | NUR ---
INITIAL NOTE BEDSIDE SBAR REPORT RECEIVED BY TILE DITCHER RN. PT RESTING IN BED, NO ACUTE DISTRESS NOTED, BREATHING EVEN AND UNLABORED. NO IV ACCESS, MD AWARE. CALL LIGHT WITHIN REACH, BED IN LOW AND LOCKED POSITION WITH BED ALARM ON.
[2019-03-30 08:00] VITALS: BP_SYST 127
[2019-03-30] MEDS: VITAMIN B COMPLEX 1 CAP/TAB NG SCH (09:26)
[2019-03-30] MEDS: CHOLECALCIFEROL (VITAMIN D3) 2,000 UNIT TABLET NG SCH (09:26)
[2019-03-30] MEDS: MULTIVITS,CA,MINERALS/IRON/FA 1 TABLET NG SCH (09:26)
[2019-03-30] MEDS: DIPHENHYDRAMINE HCL 25 MG CAPSULE PO SCH ×2 (09:26→21:00)
[2019-03-30] MEDS: PANTOPRAZOLE SODIUM 40 MG TAB PO SCH (09:26)
[2019-03-30] MEDS: DIGOXIN 0.125 MG TABLET PO SCH (09:27)
[2019-03-30] MEDS: FUROSEMIDE 40 MG TABLET PO SCH (09:27)
[2019-03-30] MEDS: QUEtiapine FUMARATE 100 MG TABLET PO SCH ×3 (09:28→16:27)
[2019-03-30] MEDS: CARVEDILOL 6.25 MG TABLET (COREG) GT SCH ×2 (09:28→21:00)
--- NOTE | 2019-03-30 09:30 | NUR ---
RN ROUNDS PT RESTING IN BED, NO ACUTE DISTRESS NOTED, BREATHING EVEN AND UNLABORED.
--- NOTE | 2019-03-30 11:29 | NUR ---
DR. URMILA MURPHY AT BEDSIDE EXAMINING PATIENT.
[2019-03-30 12:00] VITALS: BP_SYST 115
[2019-03-30 13:00] VITALS: BP_SYST 115
[2019-03-30] MEDS: IPRATROPIUM/ALBUTEROL SULFATE 3 ML AMPUL.NEB (DUONEB) INH PRN (14:48)
[2019-03-30 16:00] VITALS: BP_SYST 111
--- NOTE | 2019-03-30 19:30 | NUR ---
Opening notes Received report. Patient sleeping in bed. No signs of distress noted. Breathing even and unlabored. Patient states he does not want to be woken up right now. Patient refusing vs and assessment. Call light with the patient. Safety precautions in place.
[2019-03-30] MEDS: QUEtiapine FUMARATE 200 MG TAB.SR.24H PO SCH (21:00)
--- NOTE | 2019-03-30 22:00 | NUR ---
Refused medications and vs Patient refusing medications and vs check. Educated the importance and benefits. Patient refuse. States he wants to sleep. No signs of distress noted. Breathing even and unlabored. Call light with the patient. Safety precautions in place.
--- NOTE | 2019-03-31 00:30 | NUR ---
refused midnight vitals No signs of distress noted. Breathing even and unlabored. No needs. Call light with the patient. Safety precautions in place.
--- NOTE | 2019-03-31 03:52 | NUR ---
Sleeping No signs of distress noted. Breathing even and unlabored. Call light with the patient. Safety precautions in place.
--- NOTE | 2019-03-31 07:03 | NUR ---
Closing notes Patient sleeping. No signs of distress noted. Breathing even and unlabored. All needs met throughout the shift. Call light with the patient. Safety precautions in place. Will endorse care to day shift RN.
--- NOTE | 2019-03-31 07:30 | NUR ---
INITIAL NOTE BEDSIDE SBAR REPORT RECEIVED BY BAG GRADER RN. PT RESTING IN BED, NO ACUTE DISTRESS NOTED, BREATHING EVEN AND UNLABORED. NO IV ACCESS, MD AWARE. CALL LIGHT WITHIN REACH, BED IN LOW AND LOCKED POSITION WITH BED ALARM ON.
[2019-03-31 08:00] VITALS: BP_SYST 128
--- NOTE | 2019-03-31 09:30 | NUR ---
RN ROUNDS PT AMBULATING HALLWAY WITH FRONT WHEEL WALKER. STEADY GAIT. DENIES ANY SOB, WEAKNESS, OR DIZZINESS. PT AMBULATED BACK TO BED.
[2019-03-31] MEDS: QUEtiapine FUMARATE 100 MG TABLET PO SCH ×3 (10:03→16:10)
[2019-03-31] MEDS: DIGOXIN 0.125 MG TABLET PO SCH (10:04)
[2019-03-31] MEDS: MULTIVITS,CA,MINERALS/IRON/FA 1 TABLET NG SCH (10:04)
[2019-03-31] MEDS: DIPHENHYDRAMINE HCL 25 MG CAPSULE PO SCH ×2 (10:04→20:12)
[2019-03-31] MEDS: CHOLECALCIFEROL (VITAMIN D3) 2,000 UNIT TABLET NG SCH (10:04)
[2019-03-31] MEDS: VITAMIN B COMPLEX 1 CAP/TAB NG SCH (10:05)
[2019-03-31] MEDS: PANTOPRAZOLE SODIUM 40 MG TAB PO SCH (10:05)
[2019-03-31] MEDS: CARVEDILOL 6.25 MG TABLET (COREG) GT SCH ×2 (10:05→20:12)
[2019-03-31] MEDS: FUROSEMIDE 40 MG TABLET PO SCH (10:06)
--- NOTE | 2019-03-31 11:30 | NUR ---
RN ROUNDS PT TAKING A SHOWER WITH ASSISTANCE OF GRADUATE ASSISTANT TREV. PT GIVEN NEW GOWN AND PANTS AND COMB. PT COOPERATIVE.
[2019-03-31] MEDS: IPRATROPIUM/ALBUTEROL SULFATE 3 ML AMPUL.NEB (DUONEB) INH PRN ×2 (11:31→15:23)
[2019-03-31 12:43] VITALS: BP_SYST 130
--- NOTE | 2019-03-31 13:30 | NUR ---
RN ROUNDS PT EATING LUNCH, DENIES ANY SOB, CHEST PAIN OR DISCOMFORT AT THIS TIME. WILL CONTINUE TO MONITOR.
--- NOTE | 2019-03-31 15:30 | NUR ---
RN ROUNDS PT AWAKE, LYING DOWN IN BED RECEIVING BREATHING TREATMENT. PT TOLERATING WELL. WILL CONTINUE TO MONITOR.
[2019-03-31 17:18] VITALS: BP_SYST 105
--- NOTE | 2019-03-31 17:36 | NUR ---
RN ROUNDS PT RESTING IN BED, NO ACUTE DISTRESS NOTED, BREATHING EVEN AND UNLABORED.
--- NOTE | 2019-03-31 19:30 | NUR ---
Opening notes Received report. Patient is resting in bed, watching TV. No signs of distress noted. Breathing even and unlabored. Updated patient on plan of care. Patient verbalized understanding. Provided patient with soda. No other needs. Call light with the patient. Safety precautions in place.
--- NOTE | 2019-03-31 19:38 | NUR ---
CLOSING NOTE BEDSIDE REPORT GIVEN TO SECOND BUTLER. PT AWAKE, DENIES ANY CHEST PAIN OR SOB. CALL LIGHT WITHIN REACH, BED IN LOW AND LOCKED POSITION WITH BED ALARM ON. PT CARE ENDORSED TO SECOND BUTLER RN.
[2019-03-31] MEDS: QUEtiapine FUMARATE 200 MG TAB.SR.24H PO SCH (20:11)
[2019-03-31 20:14] VITALS: BP_SYST 136
--- NOTE | 2019-03-31 20:30 | NUR ---
Medications given. Educated the action and side effects of medications. Patient verbalized understanding and tolerated well. Cleansed old trach site per patient request. no other needs. Call light with the patient. Safety precautions in place.
--- NOTE | 2019-03-31 23:30 | NUR ---
Sleeping No signs of distress noted. Breathing even and unlabored. Call light with the patient. Safety precautions in place.
--- NOTE | 2019-04-01 02:42 | NUR ---
Sleeping Patient asleep. No signs of distress noted. Breathing even and unlabored. Call light with the patient. Safety precautions in place.
--- NOTE | 2019-04-01 04:30 | NUR ---
Sleeping No signs of distress noted. Breathing even and unlabored. Call light with the patient. Safety precautions in place.
--- NOTE | 2019-04-01 08:00 | NUR ---
am notes pt in bed. sleeping easily aroused. refusing for vitals signs check. no s/s of distress.safety precautions maintained. will conitnue to monitor
[2019-04-01 09:00] VITALS: BP_SYST 108
[2019-04-01] MEDS: MULTIVITS,CA,MINERALS/IRON/FA 1 TABLET NG SCH (10:17)
[2019-04-01] MEDS: DIPHENHYDRAMINE HCL 25 MG CAPSULE PO SCH ×2 (10:17→22:26)
[2019-04-01] MEDS: VITAMIN B COMPLEX 1 CAP/TAB NG SCH (10:17)
[2019-04-01] MEDS: CHOLECALCIFEROL (VITAMIN D3) 2,000 UNIT TABLET NG SCH (10:18)
[2019-04-01] MEDS: QUEtiapine FUMARATE 100 MG TABLET PO SCH ×3 (10:18→17:04)
[2019-04-01] MEDS: PANTOPRAZOLE SODIUM 40 MG TAB PO SCH (10:19)
[2019-04-01] MEDS: FUROSEMIDE 40 MG TABLET PO SCH (10:19)
[2019-04-01] MEDS: DIGOXIN 0.125 MG TABLET PO SCH (10:19)
[2019-04-01] MEDS: CARVEDILOL 6.25 MG TABLET (COREG) GT SCH ×2 (10:20→22:26)
--- NOTE | 2019-04-01 11:00 | NUR ---
rounds pt stable not in acute distress. walking in [address] with walker.with steady gait.denies any pian or orther discomfort. will continue to monitor
[2019-04-01 12:00] VITALS: BP_SYST 126
[2019-04-01 16:00] VITALS: BP_SYST 109
--- NOTE | 2019-04-01 17:18 | NUR ---
ROUNDS PT RESTING COMFORTABLY. VITALS STABLE NOT IN ACUTE DISTRESS. DUE MEDS GIVEN ORDERED. SAFETY PRECAUTIONS INPLACE. CALL LIGHT WITHIN REACH
--- NOTE | 2019-04-01 18:41 | NUR ---
closing notes PT RESTING COMFORTABLY. NOT IN ACUTE DISTRESS. . SAFETY PRECAUTIONS IN PLACE. CALL LIGHT WITHIN REACH
[2019-04-01 19:45] VITALS: BP_SYST 111
[2019-04-01] MEDS: IPRATROPIUM/ALBUTEROL SULFATE 3 ML AMPUL.NEB (DUONEB) INH PRN (19:55)
--- NOTE | 2019-04-01 20:30 | NUR ---
CLOSING NOTES PT RESTING COMFORTABLY. VITALS STABLE. NOT IN ACUTE DISTRESS. . SAFETY PRECAUTIONS IN PLACE. CALL LIGHT WITHIN REACH .REPORT GIVEN TO MIRIAM TURNER
[2019-04-01] MEDS: QUEtiapine FUMARATE 200 MG TAB.SR.24H PO SCH (22:27)
[2019-04-01 23:09] VITALS: BP_SYST 133
[2019-04-02 03:04] VITALS: BP_SYST 108
--- NOTE | 2019-04-02 04:00 | NUR ---
PT SLEEPING SOUNDLY . PT CONTINUED TO BE MONITORED . PT CONTINUED ON D5LR AT 50CC/HR . PT CLEANED AND DRYED .PT DID NOT HAVE ANY SIEZURES LAST NIGHT .
[2019-04-02 08:00] VITALS: BP_SYST 119
[2019-04-02 08:16] LABS: BASOPHILS # (AUTO) 0.1 K/uL (0.0-0.2); BASOPHILS % (AUTO) 1.6 % (0.0-2.0); EOSINOPHILS # (AUTO) 0.4 K/uL (0.0-0.4); EOSINOPHILS % (AUTO) 5.3 % (0.0-4.0); HEMATOCRIT 32.3 % (36-54); HEMOGLOBIN 10.8 g/dL (14.0-18.0); LYMPHOCYTES # (AUTO) 1.6 K/uL (1.0-5.5); LYMPHOCYTES % (AUTO) 19.8 % (20.5-51.5); MEAN CORPUSCULAR HEMOGLOBIN 29 pg (27-31); MEAN CORPUSCULAR HGB CONC 34 % (32-36); MEAN CORPUSCULAR VOLUME 86 fL (79.0-98.0); MONOCYTES # (AUTO) 0.7 K/uL (0.0-1.0); MONOCYTES % (AUTO) 9.4 % (1.7-9.3); NEUTROPHILS # (AUTO) 5.1 K/uL (1.8-7.7); NEUTROPHILS % (AUTO) 63.9 % (40.0-70.0); PLATELET COUNT (AUTO) 263 K/uL (130-430); RED BLOOD CELL COUNT(AUTO) 3.76 MIL/uL (4.2-6.2); RED CELL DISTRIBUTION WIDTH 20.6 % (9.0-15.0); WHITE BLOOD COUNT (AUTO) 7.9 K/uL (4.8-10.8)
[2019-04-02 08:32] LABS: ALBUMIN 3.3 g/dL (3.4-4.8); CALCIUM 9.2 mg/dL (8.4-11.0); CREATININE 0.85 mg/dL (0.55-1.30); DIGOXIN 0.4 ng/mL (0.80-2.00); POTASSIUM 3.5 mmol/L (3.5-5.1); TOTAL BILIRUBIN 0.6 mg/dL (0.0-1.0)
[2019-04-02] MEDS: QUEtiapine FUMARATE 100 MG TABLET PO SCH ×2 (09:08→12:24)
[2019-04-02] MEDS: CARVEDILOL 6.25 MG TABLET (COREG) GT SCH ×2 (09:08→21:59)
[2019-04-02] MEDS: FUROSEMIDE 40 MG TABLET PO SCH (09:09)
[2019-04-02] MEDS: PANTOPRAZOLE SODIUM 40 MG TAB PO SCH (09:09)
[2019-04-02] MEDS: VITAMIN B COMPLEX 1 CAP/TAB NG SCH (09:09)
[2019-04-02] MEDS: CHOLECALCIFEROL (VITAMIN D3) 2,000 UNIT TABLET NG SCH (09:10)
[2019-04-02] MEDS: DIPHENHYDRAMINE HCL 25 MG CAPSULE PO SCH ×2 (09:10→21:59)
[2019-04-02] MEDS: MULTIVITS,CA,MINERALS/IRON/FA 1 TABLET NG SCH (09:10)
[2019-04-02] MEDS: DIGOXIN 0.125 MG TABLET PO SCH (09:11)
--- NOTE | 2019-04-02 11:50 | NUR ---
Social Service/Discharge Planning: CASE FINISHING MACHINE ADJUSTER spoke with Laney at the [facility] ([phone] [phone]); CASE FINISHING MACHINE ADJUSTER alerted Laney that hospital is still looking for placement for pt; Laney re-opened pt's referral to [facility]. CASE FINISHING MACHINE ADJUSTER has faxed additional information to Laney for review ([phone]). CASE FINISHING MACHINE ADJUSTER will follow up with Laney to check on status. Pt will need FWW for ambulation. Pt will also need prescriptions for all medications to be filled prior to being accepted at [facility].
--- NOTE | 2019-04-02 13:23 | NUR ---
PHYSICAL THERAPY CO-SIGN The Physical Therapy Progress Notes documented by Embroidery Specialist have been reviewed. Reviewed/Co-Signed by: Damian Salas PT Documentation Done by: ELANA EVANS PTA Addendum: 04/02/19 at 1323 by Damian Salas PT Amended: Links added.
--- NOTE | 2019-04-02 18:00 | NUR ---
Patient is eating breakfast lunch and dinner, he eats entire meal. He does his own ADLs in the morning, and showered by afternoon. His vital signs are stable. He ambulates to the bathroom, and in the hernandez. He has no co pain. Patient is cooperative, and appropriate. He receives PRN breathing treatments, and will receive one this evening. Bipap at night. Tavon Logan RN
[2019-04-02] MEDS: IPRATROPIUM/ALBUTEROL SULFATE 3 ML AMPUL.NEB (DUONEB) INH PRN (19:29)
--- NOTE | 2019-04-02 20:00 | NUR ---
Initial note: Received report from dayshift RN. Patient is awake, laying in bed watching TV. Alert and oriented x4, no acute distress. Tolerating room air. No IV site present, MD's are aware. Bed locked in lowest position, side rails raised x3, bed alarm on. Room is close to nurses' station. Will continue with plan of care.
[2019-04-02 20:50] VITALS: BP_SYST 117
--- NOTE | 2019-04-02 21:54 | NUR ---
Med pass: Scheduled medications administered, patient tolerated well. Discussed indications and side effects, patient verbalized understanding. Will monitor for adverse effects.
[2019-04-02] MEDS: QUEtiapine FUMARATE 200 MG TAB.SR.24H PO SCH (21:59)
[2019-04-03] VITALS: BP_SYST 103
--- NOTE | 2019-04-03 00:26 | NUR ---
Sleeping: Patient is asleep, no signs or symptoms of acute distress. Tolerating room air. Call light with patient. Safety, fall precautions in place. Will continue monitoring.
--- NOTE | 2019-04-03 03:18 | NUR ---
Sleeping: Patient is asleep, no signs or symptoms of acute distress. Tolerating room air. Call light with patient. Safety, fall precautions in place. Will continue monitoring.
--- NOTE | 2019-04-03 06:31 | NUR ---
Closing note: Patient is asleep. Does not show any acute distress. Even, unlabored breathing on room air. All needs met. Safety and fall precautions maintained. Patient checked hourly. Will endorse care to dayshift RN.
[2019-04-03] MEDS: QUEtiapine FUMARATE 100 MG TABLET PO SCH ×3 (08:00→17:36)
--- NOTE | 2019-04-03 08:00 | NUR ---
Initial notes- Pt in bed, still asleep. No acute distress noted.
[2019-04-03] MEDS: DIPHENHYDRAMINE HCL 25 MG CAPSULE PO SCH ×2 (09:32→21:00)
[2019-04-03] MEDS: CARVEDILOL 6.25 MG TABLET (COREG) GT SCH ×2 (09:33→21:00)
[2019-04-03] MEDS: CHOLECALCIFEROL (VITAMIN D3) 2,000 UNIT TABLET NG SCH (09:33)
[2019-04-03] MEDS: PANTOPRAZOLE SODIUM 40 MG TAB PO SCH (09:33)
[2019-04-03] MEDS: VITAMIN B COMPLEX 1 CAP/TAB NG SCH (09:33)
[2019-04-03] MEDS: MULTIVITS,CA,MINERALS/IRON/FA 1 TABLET NG SCH (09:34)
[2019-04-03] MEDS: FUROSEMIDE 40 MG TABLET PO SCH (09:34)
[2019-04-03] MEDS: DIGOXIN 0.125 MG TABLET PO SCH (09:34)
--- NOTE | 2019-04-03 10:00 | NUR ---
pt take shower independently.
[2019-04-03 10:05] VITALS: BP_SYST 119
--- NOTE | 2019-04-03 11:15 | NUR ---
Discharge Planning: [facility] faxed pt referral to [facility] (f [phone] p [phone]) [facility] to follow up. Addendum: 04/03/19 at 1313 by Linda Coon DP DCP followed up with [facility] (f [phone] p [phone]) they do not carry walkers. [facility] spoke to Chrissy Vu/[facility] (f [phone] p [phone]) she stated for DME call Americo at [facility] (f [phone] c [phone]) for walker Chrissy will send auth to [facility]. [facility] faxed referral to Americo at [facility] (f [phone] c [phone]). [facility] to follow up. Addendum: 04/03/19 at 1637 by Linda Neripin DP JAYLAN rodriguez to Americo at [facility] (f [phone] c [phone]) walker was delivered.
--- NOTE | 2019-04-03 11:24 | NUR ---
Discharge Planning: DENNIS spoke with Laney at [facility] ([phone]); Laney states that pt has been accepted to their program; pt will be placed on a waitlist until he has his medications and FWW. SYD Irvin is obtaining FWW for pt. DENNIS has faxed prescriptions to [facility] ([phone] [phone]). Once pt has all necessary items transportation will be arranged for pt to go to the [facility]. Addendum: 04/03/19 at 1221 by Eun Omalley LCSW DENNIS spoke with Ez, Pharmacist at [facility]; Ez needs to order pt's Seroquel and digoxin. Ez states that pt's prescriptions will be ready for bean picker tomorrow, 04/04/19. DENNIS spoke with SYD irvin who is obtaining FWW for pt. DENNIS will contact Laney for bed arrangement at [facility] for pt once prescriptions and FWW are obtained.
[2019-04-03 13:22] VITALS: BP_SYST 115
--- NOTE | 2019-04-03 14:00 | NUR ---
Family at bedside visiting the patient.
[2019-04-03 15:12] VITALS: BP_SYST 121
--- NOTE | 2019-04-03 15:20 | NUR ---
Nutrition F/U RD reviewed pt's current EMR including diet Hx, physician notes, nursing notes, pertinent labs/meds/procedures, care trends, and care activity. Current Diet Order: Cardiac diet w/ Ensure Enlive TID, Ok BID x7 days Subjective information: Pt was resting in bed during time of visit. Pt reported everything is the same. Bed scale wt 243.1 #. Average PO intake of 83% x25 meals per EMR. Pt reports he is taking Ensure Enlive and Ok BID. RN reported pt eats a lot and is improving overall. Recent wt Hx reveals some wt fluctuations possibly r/t Hx of CHF: 243.1#/110kg (04/03/19), 238.7#/ 109 kg (03/20/19); 246#/112 kg (03/15/19); 255#/115 kg (03/03/19); 246#/112 kg (03/02/19); 242#/110 kg (03/01/19); 249#/113 kg (02/28/19). ESTIMATED NUTRITIONAL REQUIREMENTS CALORIES/DAY: 6899-5923 kcal/day (MSJ x 1-1.2 CBW d/t obesity, maintenance) PROTEIN/DAY: 118-176 gm/day (1.2-1.5 gm/kg Adj IBW for obesity, COPD) FLUID/DAY: Per physician d/t Hx of CHF PES 1. Morbid Obesity r/t inability to access healthier food choices AEB possible consumption of high calorie food and beverage from fast food restaurants and convenient stores, homelessness, and BMI 40 kg/m2. *no longer applicable 2. Inadequate nutrient intake r/t medication intake AEB PO intake not meeting 75% of estimated needs and nursing staff report. *no longer applicable 3. Unintentional wt loss related to possible lean muscle mass depletion as evidenced by possible 47#/15% wt change within 1 month. *ongoing 4. Inadequate EN support related to critical illness as evidenced by no currently infusing nutrition support. *resolved 5. Inadequate EN support r/t increased caloric needs AEB current EN regimen provides <75% of estimated calorie needs. *no longer applicable I: 1. Recommend continuing cardiac diet w/ Ensure Enlive TID w/ Ok BID (1230 kcal/day, 65 gm protein/day) 2. Collect pt daily menu preferences to ensure optimal nutrition. M: Monitor appetite and PO intake w/ goal of pt meeting at least 85% of estimated nutritional needs, labs trending WNL, normal GI function, skin integrity/wt maintenance. E: Low Risk; F/U within 7 days Signed: 04/03/19 at 1521 by Mena VELASCO <Co-Signature Required> Co-Signed: 04/03/19 at [address]
[2019-04-03 16:50] VITALS: BP_SYST 118
--- NOTE | 2019-04-03 17:28 | NUR ---
front wheel walker was delivered at bedside.
--- NOTE | 2019-04-03 17:30 | NUR ---
Notes- Denies any pain or chest pain the whole shift. Ambulate with front wheel walker with steady gait. All needs meet through out shift.
[2019-04-03 20:30] VITALS: BP_SYST 119
--- NOTE | 2019-04-03 20:35 | NUR ---
Opening notes Pt asleep, easily arousable. VSS. Denies any pain or discomfort. Pt refused meds for tonight and states he doesn't want to be woken up. Safety maintained. FWW at bedside. To monitor.
[2019-04-03] MEDS: QUEtiapine FUMARATE 200 MG TAB.SR.24H PO SCH (21:00)
[2019-04-04 01:03] VITALS: BP_SYST 121
--- NOTE | 2019-04-04 05:57 | NUR ---
Closing notes Pt asleep, no s/s distress or discomfort noted. Safety maintained. FWW at bedside. Call light within reach. To monitor.
--- NOTE | 2019-04-04 07:37 | NUR ---
RN OPENING NOTE REPORT WAS ENDORSED BY NIGHT NURSE. PATIENT APPEARS TO BE RESTING WITH NO SIGNS OF ANY DISTRESS, BREATHING IS EQUAL AND NON LABORED. PATIENT HAS ALL SAFETY PRECAUTIONS IN PLACE. PATIENT IS CLOSE TO NURSES STATION NO OTHER NEEDS AT THIS TIME. WILL CONTINUE TO MONITOR.
[2019-04-04 08:20] VITALS: BP_SYST 113
[2019-04-04] MEDS: CHOLECALCIFEROL (VITAMIN D3) 2,000 UNIT TABLET NG SCH (08:33)
[2019-04-04] MEDS: QUEtiapine FUMARATE 100 MG TABLET PO SCH ×2 (08:33→12:20)
[2019-04-04] MEDS: MULTIVITS,CA,MINERALS/IRON/FA 1 TABLET NG SCH (08:33)
[2019-04-04] MEDS: CARVEDILOL 6.25 MG TABLET (COREG) GT SCH (08:34)
[2019-04-04] MEDS: PANTOPRAZOLE SODIUM 40 MG TAB PO SCH (08:34)
[2019-04-04] MEDS: DIPHENHYDRAMINE HCL 25 MG CAPSULE PO SCH (08:34)
[2019-04-04] MEDS: FUROSEMIDE 40 MG TABLET PO SCH (08:34)
[2019-04-04] MEDS: DIGOXIN 0.125 MG TABLET PO SCH (08:35)
[2019-04-04] MEDS: VITAMIN B COMPLEX 1 CAP/TAB NG SCH (08:35)
--- NOTE | 2019-04-04 08:41 | NUR ---
MEDICATION PATIENTS SCHEDULED MEDICATION GIVEN PER ORDER. PATIENT IS AWAKE AND ALERT SITTING UP IN BED EATING BREAKFAST. PATIENT HAS ALL SAFETY PRECAUTIONS IN PLACE. EDUCATED OPERATIONS RESEARCH ENGINEER LIGHT FOR ASSISTANCE, CALL LIGHT IS WITH PATIENT. PATIENT IS CLOSE TO NURSES STATION. WILL CONTINUE TO MONITOR.
[2019-04-04 10:16] VITALS: BP_SYST 113
--- NOTE | 2019-04-04 11:01 | NUR ---
Patients father Kris made aware of where patient is being discharged to [address] [facility] [address]. patients father is wanting phone number will call him back when i get the phone number from the forensic social worker. patient is aware of discharge. patient has no complaints at this time. breathing is equal and non labored. patient has all safety precautions in place. patient is close to nurses station. will continue to monitor.
--- NOTE | 2019-04-04 11:12 | NUR ---
Social Service Note: Pt will be going to [facility] ([address] , [place] [address] ). Pt will be picked up at 2:30pm. Prescriptions were filled by [facility]. [facility] [place] checklist to Linda at [facility] ([phone]).
--- NOTE | 2019-04-04 11:21 | NUR ---
Discharge Planning: DCP arranged transportation with [employer] ([phone]) at 2:20pm a route driver [employer] will transport to [address] [address]. When power truck driver arrives he will text DCP SUPERVISOR RIDES aware.
[2019-04-04 12:39] VITALS: BP_SYST 110
--- NOTE | 2019-04-04 14:18 | NUR ---
DISCHARGED PATIENT DISCHARGED PER ORDERED. PATIENT ASSISTED OUTSIDE WITH WALKER AND BELONGINGS. PATIENT HAS ALL HIS BELONGINGS WITH HIM. PRESCRIPTIONS HAVE BEEN FILLED AND ARE WITH PATIENT. PATIENT HAS CLOTHES AND SHOES PROVIDED TO HIM. PATIENT HAS NO OTHER NEEDS AT THIS TIME. PATENT SHOWS NO SHORTNESS OF BREATH BREATHING IS EQUAL AND NON LABORED. PATIENT FATHER IS AWARE HAS PHONE NUMBER AND ADDRESS OF WHERE THE PATIENT IS GOING. Addendum: 04/04/19 at 1604 by Eun Junior RN patient refused for follow up appointment to be made.
--- NOTE | 2019-04-08 14:53 | NUR ---
LATE ENTRY FOR 04/04/19-1415: Pt agreeable to be discharged to [facility]; transportation arranged by DC logistics planner with pt's insurance. Pt was provided with new shoes, pants, and shirt.
== END 2019-04-04 14:20 | disposition home or self-care (01) | DRG 5 ==
LOC: SED 20:17 → STU 12-14 04:12 → SMU 12-15 11:24 → STU 12-16 19:30 → SMU 12-17 20:51 → STU 12-28 16:30 → SIC 01-19 10:20 → STU 01-23 19:22 → SIC 01-29 08:52 → STU 02-15 19:10 → SIC 02-17 20:54 → STU 02-19 20:56 → SMU 03-08 13:39
PROVIDERS: ADMIT Internal Medicine; ATTEND Internal Medicine
PROC: 02HV33Z Insertion of Infusion Device into Superior Vena Cava, Percutaneous Approach (ICD-10-PCS; 2018-12-14)
PROC: B548ZZA Ultrasonography of Superior Vena Cava, Guidance (ICD-10-PCS; 2018-12-14)
PROC: 5A09357 Assistance with Respiratory Ventilation, Less than 24 Consecutive Hours, Continuous Positive Airway Pressure (ICD-10-PCS; 2018-12-15)
PROC: 5A09357 Assistance with Respiratory Ventilation, Less than 24 Consecutive Hours, Continuous Positive Airway Pressure (ICD-10-PCS; 2018-12-19)
PROC: 5A09357 Assistance with Respiratory Ventilation, Less than 24 Consecutive Hours, Continuous Positive Airway Pressure (ICD-10-PCS; 2018-12-20)
PROC: 5A09357 Assistance with Respiratory Ventilation, Less than 24 Consecutive Hours, Continuous Positive Airway Pressure (ICD-10-PCS; 2018-12-21)
PROC: 5A09357 Assistance with Respiratory Ventilation, Less than 24 Consecutive Hours, Continuous Positive Airway Pressure (ICD-10-PCS; 2018-12-23)
PROC: 5A09357 Assistance with Respiratory Ventilation, Less than 24 Consecutive Hours, Continuous Positive Airway Pressure (ICD-10-PCS; 2018-12-25)
PROC: 30233N1 Transfusion of Nonautologous Red Blood Cells into Peripheral Vein, Percutaneous Approach (ICD-10-PCS; 2019-01-16)
PROC: 0DB68ZX Excision of Stomach, Via Natural or Artificial Opening Endoscopic, Diagnostic (ICD-10-PCS; 2019-01-16)
PROC: 0DBP8ZZ Excision of Rectum, Via Natural or Artificial Opening Endoscopic (ICD-10-PCS; 2019-01-17)
PROC: 0W3P8ZZ Control Bleeding in Gastrointestinal Tract, Via Natural or Artificial Opening Endoscopic (ICD-10-PCS; 2019-01-17)
PROC: 0DBP8ZX Excision of Rectum, Via Natural or Artificial Opening Endoscopic, Diagnostic (ICD-10-PCS; 2019-01-17)
PROC: 5A09357 Assistance with Respiratory Ventilation, Less than 24 Consecutive Hours, Continuous Positive Airway Pressure (ICD-10-PCS; 2019-01-28)
PROC: 5A1955Z Respiratory Ventilation, Greater than 96 Consecutive Hours (ICD-10-PCS; 2019-01-29)
PROC: 5A09357 Assistance with Respiratory Ventilation, Less than 24 Consecutive Hours, Continuous Positive Airway Pressure (ICD-10-PCS; 2019-01-29)
PROC: 0BH17EZ Insertion of Endotracheal Airway into Trachea, Via Natural or Artificial Opening (ICD-10-PCS; 2019-01-29)
PROC: 02HV33Z Insertion of Infusion Device into Superior Vena Cava, Percutaneous Approach (ICD-10-PCS; 2019-02-05)
PROC: B548ZZA Ultrasonography of Superior Vena Cava, Guidance (ICD-10-PCS; 2019-02-05)
PROC: 5A1935Z Respiratory Ventilation, Less than 24 Consecutive Hours (ICD-10-PCS; 2019-02-09)
PROC: 0B110F4 Bypass Trachea to Cutaneous with Tracheostomy Device, Open Approach (ICD-10-PCS; principal; 2019-02-17)
PROC: 0DB68ZX Excision of Stomach, Via Natural or Artificial Opening Endoscopic, Diagnostic (ICD-10-PCS; 2019-02-17)
PROC: 0DH63UZ Insertion of Feeding Device into Stomach, Percutaneous Approach (ICD-10-PCS; 2019-02-17)
PROC: 0B21XFZ Change Tracheostomy Device in Trachea, External Approach (ICD-10-PCS; 2019-02-20)
PROC: 05HY33Z Insertion of Infusion Device into Upper Vein, Percutaneous Approach (ICD-10-PCS; 2019-02-27)
PROC: B54MZZA Ultrasonography of Right Upper Extremity Veins, Guidance (ICD-10-PCS; 2019-02-27)
DX: A41.50 Gram-negative sepsis, unspecified (principal); I21.4 Non-ST elevation (NSTEMI) myocardial infarction; I63.9 Cerebral infarction, unspecified; J69.0 Pneumonitis due to inhalation of food and vomit; J86.9 Pyothorax without fistula; J96.21 Acute and chronic respiratory failure with hypoxia; N17.0 Acute kidney failure with tubular necrosis; E46 Unspecified protein-calorie malnutrition; K29.71 Gastritis, unspecified, with bleeding; K55.9 Vascular disorder of intestine, unspecified; G93.40 Encephalopathy, unspecified; R65.21 Severe sepsis with septic shock; I50.43 Acute on chronic combined systolic (congestive) and diastolic (congestive) heart failure; T43.621A Poisoning by amphetamines, accidental (unintentional), initial encounter; E66.01 Morbid (severe) obesity due to excess calories; D69.6 Thrombocytopenia, unspecified; N39.0 Urinary tract infection, site not specified; B96.20 Unspecified Escherichia coli [E. coli] as the cause of diseases classified elsewhere; E11.9 Type 2 diabetes mellitus without complications; F10.10 Alcohol abuse, uncomplicated; F15.129 Other stimulant abuse with intoxication, unspecified; F15.159 Other stimulant abuse with stimulant-induced psychotic disorder, unspecified; F17.210 Nicotine dependence, cigarettes, uncomplicated; R45.851 Suicidal ideations; G47.33 Obstructive sleep apnea (adult) (pediatric); I08.1 Rheumatic disorders of both mitral and tricuspid valves; I11.0 Hypertensive heart disease with heart failure; D62 Acute posthemorrhagic anemia; E83.39 Other disorders of phosphorus metabolism; R57.0 Cardiogenic shock; I42.0 Dilated cardiomyopathy; I47.1 Supraventricular tachycardia; K31.89 Other diseases of stomach and duodenum; K62.1 Rectal polyp; I48.20 Chronic atrial fibrillation, unspecified; J44.1 Chronic obstructive pulmonary disease with (acute) exacerbation; D68.59 Other primary thrombophilia; E87.1 Hypo-osmolality and hyponatremia; K70.30 Alcoholic cirrhosis of liver without ascites; I27.20 Pulmonary hypertension, unspecified; F23 Brief psychotic disorder; K72.90 Hepatic failure, unspecified without coma; E87.0 Hyperosmolality and hypernatremia; F25.9 Schizoaffective disorder, unspecified; K22.5 Diverticulum of esophagus, acquired; K80.20 Calculus of gallbladder without cholecystitis without obstruction; Z99.11 Dependence on respirator [ventilator] status; Z91.14 Patient's other noncompliance with medication regimen; Z79.899 Other long term (current) drug therapy; Z68.30 Body mass index [BMI] 30.0-30.9, adult; Z79.82 Long term (current) use of aspirin; Z79.01 Long term (current) use of anticoagulants; Z78.1 Physical restraint status; Z59.0 Homelessness; Y92.89 Other specified places as the place of occurrence of the external cause
CPT/HCPCS: 32555; 36415; 36600; 43239; 45380; 45382; 45384; 70450-TC; 71045; 71250-TC; 71260-TC; 74018; 74230; 76700-TC; 80048; 80053; 80061; 80074; 80076; 80150; 80162-TC; 80202-TC; 80307; 81000-TC; 82105; 82140-TC; 82248-TC; 82272; 82390; 82728; 82784; 82803-TC; 82947-TC; 83516; 83605; 83615-TC; 83690-TC; 83735-TC; 83880; 84100-TC; 84155; 84157-TC; 84165; 84439; 84443-TC; 84484; 85007; 85025; 85027; 85610-TC; 85730-TC; 86038; 86886; 86900; 86901; 86920; 87040-TC; 87070-TC; 87081; 87086; 87116; 87186-TC; 87205-TC; 87230-TC; 88108; 88305; 88312; 88313; 89051-TC; 89060-TC; 92523; 92610-GN; 92611-GN; 93005; 93306; 94002; 94003; 94640; 94660; 94760; 95816; 97110-GP; 97112-GP; 97116-GP; 97530-GP; 99285; C1729; C1751; C1769; C1782; C9113; G0378; J0171; J0278; J0692; J0696; J1160; J1200; J1580; J1630; J1720; J1756; J1940; J2060; J2250; J2270; J2354; J2405; J2543; J2704; J2930; J3010; J3370; J3475; J3480; J3490; J7030; J7040; J7050; J7060; J7120; J7512; J7613; J7620; P9021; P9046; Q0163; Q9967

== ENCOUNTER 2019-04-21 16:44 | Emergency (ER) | payer MEDICAID ==
[~2019-04-21] VITALS: Ht 190.5 cm; Wt 108.9 kg
[~2019-04-21 16:44] MED LIST changes: -ALBMDI INH; +OLAN10TA3 PO; -POTA20TA83 PO; +SER100 PO
[2019-04-21 16:47] VITALS: BP_SYST 125
--- NOTE | 2019-04-21 16:47 | NUR ---
Placed in room 3 . Placed on quality assurance monitor chassis, blood pressure machine and pulse oximeter. To gown for exam. Side rails up. Assumed care.
--- NOTE | 2019-04-21 16:50 | NUR ---
Patient arrived via vehicle and dropped off in a wheelchair by "some homeless girl" per patient. Patient states c/c of SOB for a few days, 10/10 pain "everywhere" and swelling to hands and feet. Patient states he was discharged from our facility after 5 months, sent to [place] and then hasnt been feeling very well. Patient has been discharged since , hasnt been taking home medications because he "doesnt have them anymore." He states he can't walk, but "doesnt have" the walker provided. Patient able to transfer to [facility] from wheelchair. Will continue to follow up and monitor.
--- NOTE | 2019-04-21 16:52 | NUR ---
ER at bedside examining patient.
--- NOTE | 2019-04-21 17:02 | NUR ---
MD jose g MURPHY, Dr. Clarke and Dr. Pelaez for further information.
[2019-04-21 17:32] LABS: BASOPHILS # (AUTO) 0.1 K/uL (0.0-0.2); BASOPHILS % (AUTO) 1.2 % (0.0-2.0); EOSINOPHILS # (AUTO) 0.2 K/uL (0.0-0.4); HEMATOCRIT 30.3 % (36-54); LYMPHOCYTES # (AUTO) 1.2 K/uL (1.0-5.5); LYMPHOCYTES % (AUTO) 15.7 % (20.5-51.5); MEAN CORPUSCULAR HEMOGLOBIN 29 pg (27-31); MEAN CORPUSCULAR HGB CONC 33 % (32-36); MEAN CORPUSCULAR VOLUME 89 fL (79.0-98.0); MONOCYTES # (AUTO) 0.7 K/uL (0.0-1.0); NEUTROPHILS # (AUTO) 5.1 K/uL (1.8-7.7); NEUTROPHILS % (AUTO) 70.1 % (40.0-70.0); PLATELET COUNT (AUTO) 301 K/uL (130-430); RED CELL DISTRIBUTION WIDTH 20.3 % (9.0-15.0); WHITE BLOOD COUNT (AUTO) 7.3 K/uL (4.8-10.8)
[2019-04-21 17:42] LABS: BARBITURATE, URINE NEGATIVE (NEG <=200); METHAMPHETAMINES SCREEN,URINE POSITIVE (NEG <=500)
[2019-04-21 17:43] LABS: BENZODIAZEPINE, URINE NEGATIVE (NEG <=150); CANNABINOID, URINE NEGATIVE (NEG <=50); COCAINE, URINE NEGATIVE (NEG <=150); OPIATE, URINE NEGATIVE (NEG <=100); PHENCYCLIDINE SCREEN,URINE NEGATIVE (NEG <=25); UR TRICYCLIC ANTIDEPRESSANTS NEGATIVE (NEG <=300); URINE AMPHETAMINE POSITIVE (NEG <=500); URINE METHADONE NEGATIVE (NEG <=200); URINE OXYCODONE SCREEN NEGATIVE (NEG <=100); URINE PROPOXYPHENE SCREEN NEGATIVE (NEG <=300)
[2019-04-21 17:45] LABS: INR 1.4 (0.80-1.20); PROTHROMBIN TIME 13.9 SECS (9.5-12.5)
[2019-04-21 17:47] LABS: ANION GAP 11 (5-15); CALCIUM 9.3 mg/dL (8.4-11.0); CHLORIDE 107 mmol/L (98-107); CREATININE 0.82 mg/dL (0.55-1.30); GLUCOSE 91 mg/dL (70-99); POTASSIUM 3.2 mmol/L (3.5-5.1); SODIUM SERUM 143 mmol/L (136-145); UREA NITROGEN, BLOOD 13 mg/dL (8-21)
[2019-04-21 17:48] LABS: GFR AFRICAN AMERICAN 129 mL/min (>90)
[2019-04-21 18:04] LABS: ALANINE AMINOTRANSFERASE 35 U/L (12-78); ALCOHOL, BLOOD 8 mg/dL (<10); ASPARTATE AMINOTRANSFERASE 29 U/L (10-37)
[2019-04-21 18:05] LABS: ACETAMINOPHEN < 1 ug/mL (1-30)
--- NOTE | 2019-04-21 18:50 | NUR ---
Spoke with Renate social work manager via phone, she states to give homeless resources and assess desire for long-term placement. If refusing to go to long-term, go back to where he has been staying. If refusing to leave, call marketing programs manager if needed.
--- NOTE | 2019-04-21 19:04 | NUR ---
Patient agreeable to discharge to residential, [facility] homeless [facility] No shelters available.
--- NOTE | 2019-04-21 19:14 | NUR ---
Patient given written and verbal discharge instructions and verbalizes understanding. ER MD discussed with patient the results and treatment provided. Patient in stable condition. ID arm band removed. Rx given per Dr. Clarke. Patient educated on pain management and to follow up with PMD. Pain Scale 10/10, MD aware. Opportunity for questions provided and answered. Medication side effect fact sheet provided. Homeless resources provided, attempted to call shelters. Patient agreeable to waiting in waiting room, called for food tray, and water per request. Requesting to see MD Clarke. Dr. Clarke went to bedside to speak with patient regarding prescriptions and follow up.
--- NOTE | 2019-04-21 19:15 | NUR ---
Pt AAOx4, NAD. Pt refuses to leave ER. Dr. Clarke and ER Charge Nurse at bedside to explain that he has been discharged. Pt continues to refuse to leave. Security called.
--- NOTE | 2019-04-21 19:25 | NUR ---
Dr. Clarke aware of pt.'s HR 122. Pt denies c/o C/P or SOB at this time.
[2019-04-21 19:38] VITALS: BP_SYST 144
--- NOTE | 2019-04-21 19:38 | NUR ---
Pt agrees to comply with discharge order. Pt leaves ER with steady gait and in stable condition.
--- NOTE | 2019-04-22 09:58 | NUR ---
ATTEMPTED TO CALL ALL CONTACT NUMBERS, UNABLE TO REACH PATIENT FOR RESULTS UPDATE.
== END 2019-04-21 19:38 | disposition home or self-care (01) ==
LOC: SED 16:44
DX: I25.5 Ischemic cardiomyopathy (principal); F15.129 Other stimulant abuse with intoxication, unspecified; J44.9 Chronic obstructive pulmonary disease, unspecified; Z79.82 Long term (current) use of aspirin; Z79.899 Other long term (current) drug therapy
CPT/HCPCS: 36415; 71045; 80053; 80307; 83880; 84484; 85025; 85379; 85610; 85730; 99284; G0480; G0481; G0482

== ENCOUNTER 2023-06-30 16:03 | Emergency (ER) | payer MEDICAID, OTHER ==
[~2023-06-30] VITALS: Ht 188 cm; Wt 113.4 kg
[~2023-06-30 16:03] MED LIST changes: -LISI-600 PO; +LISI20TA30 PO; -METO5TAB8 PO; +METO5TAB9 PO
[2023-06-30 16:15] VITALS: BP_SYST 134; PULSE 87; RESP 18; TEMP 99.1; O2SAT 98
[2023-06-30 16:55] VITALS: BP_SYST 134; PULSE 87; RESP 18; TEMP 99.1; O2SAT 98
== END 2023-06-30 16:55 ==
LOC: SED 16:03
DX: Z02.89 Encounter for other administrative examinations (principal); J44.9 Chronic obstructive pulmonary disease, unspecified; Z79.899 Other long term (current) drug therapy
CPT/HCPCS: 99283